=== PATIENT | male | born 1940 | race Caucasian/White ===

== ENCOUNTER 2017-12-05 08:57 | Inpatient (IN) | payer OTHER ==
[2017-12-05] VITALS (8 sets, daily range): BP systolic 97–141; BP diastolic 58–85; PULSE 67–139; TEMP 36.3–36.7; O2SAT 94–96; Ht 190.5 cm; Wt 98.3 kg
[~2017-12-05] VITALS: Ht 190.5 cm; Wt 98.3 kg
[~2017-12-05 08:57] MED LIST: BENADRYL; NXM/40
--- NOTE | 2017-12-05 09:35 | DIAGNOSTIC IMAGING REPORT ---
CHEST ONE VIEW PORTABLE CLINICAL HISTORY: EVALUATE RESPIRATORY DISTRESS.DYSPNEA dyspnea COMPARISON STUDY: No previous studies for comparison. FINDINGS: The bones soft tissues and hemidiaphragms are normal. The cardiomediastinal silhouette is normal. The lungs are clear. The pulmonary vasculature is normal. Minimal platelike atelectasis left base. IMPRESSION: Minimal platelike atelectasis left base. Otherwise negative study. The above report was generated using voice recognition software. It may contain grammatical, syntax or spelling errors. Electronically signed by: Lawrence Rubio M.D. 12/05/2017 9:33 AM Dictated Date/Time: 12/05/2017 9:33 AM
[2017-12-05] MEDS ORDERED: GABA-112 PO (09:41)
[2017-12-05] MEDS ORDERED: NXM/40 PO (09:41)
[2017-12-05] MEDS ORDERED: LISI-789 PO (09:41)
[2017-12-05] MEDS ORDERED: FERR1TAB23 PO (09:41)
[2017-12-05] MEDS ORDERED: SIMV5TAB2 PO (09:41)
[2017-12-05] MEDS ORDERED: MELO-84 PO (09:41)
[2017-12-05] MEDS ORDERED: PRD/1 PO (09:41)
[2017-12-05] MEDS ORDERED: TAMS0.4C38 PO (09:41)
[2017-12-05 10:03] LABS: BASO % 0.2 %; BASO ABS # 0.01 K/uL (0-0.2); EOS % 4.7 %; HEMATOCRIT 40.7 % (42-52); HEMOGLOBIN 14.5 g/dL (14.0-18.0); IG# 0.03 K/uL (0.00-0.02); LYMPH % 25.1 %; LYMPH ABS # 1.07 K/uL (1.2-3.4); MEAN CELL VOLUME 90.2 fL (80-100); MEAN CORPUSCULAR HEMOGLOBIN 32.2 pg (25-34); MEAN CORPUSCULAR HGB CONC 35.6 g/dl (32-36); MEAN PLATELET VOLUME 10.1 fL (7.4-10.4); MONO % 10.1 %; MONO ABS # 0.43 K/uL (0.11-0.59); NEUT % 59.2 %; NEUT ABS # 2.53 K/uL (1.4-6.5); PLATELET COUNT 232 K/uL (130-400); RED CELL DISTRIBUTION WIDTH CV 13.1 % (11.5-14.5); RED CELL DISTRIBUTION WIDTH SD 42.7 fL (36.4-46.3); WHITE BLOOD COUNT 4.27 K/uL (4.8-10.8)
[2017-12-05 10:11] LABS: PTT PATIENT 24.8 SECONDS (21.0-31.0)
[2017-12-05 10:23] LABS: ALBUMIN 3.6 gm/dl (3.4-5.0); CALCIUM 9.6 mg/dl (8.5-10.1); CREATININE 0.94 mg/dl (0.60-1.40); PHOSPHORUS 3.4 mg/dl (2.5-4.9)
[2017-12-05 10:30] LABS: TOTAL PROTEIN 6.9 gm/dl (6.4-8.2)
[2017-12-05] MEDS ORDERED: ASPIRIN 324 MG CHEW PO STA (10:32)
[2017-12-05] MEDS ORDERED: SODIUM CHLORIDE 0.9% 1000ML 1,000 ML IV STA (10:33)
[2017-12-05] MEDS ORDERED: METOPROLOL TARTRATE 1 MG/ML VIAL IV STA (10:58)
--- NOTE | 2017-12-05 11:42 | DIAGNOSTIC IMAGING REPORT ---
(CHEST FOR PE) ANGIO WITH CT DOSE: 562.38 mGy.cm HISTORY: Chest pain dyspnea TECHNIQUE: Multiaxial CT images of the chest were performed following the intravenous administration of contrast to evaluate the pulmonary arteries. Maximal intensity projection images were also obtained. A dose lowering technique was utilized adhering to the principles of ALARA. COMPARISON STUDY: None. FINDINGS: There is a normal caliber thoracic aorta with no evidence for dissection. There is no evidence for pulmonary embolus. No pleural effusions. No pneumothorax. The liver and spleen are unremarkable. No mediastinal or hilar lymphadenopathy. The central airways are patent. The lungs demonstrate mild emphysematous change with mild bibasilar interstitial prominence. Scattered bibasilar plaque atelectasis is also present. Generalized degenerative changes of the thoracic spine. IMPRESSION: No evidence for pulmonary embolus. Mild emphysematous change. Mild bibasilar interstitial/atelectatic change. The above report was generated using voice recognition software. It may contain grammatical, syntax or spelling errors. Electronically signed by: Lawrence Rubio M.D. 12/05/2017 11:40 AM Dictated Date/Time: 12/05/2017 11:32 AM
[2017-12-05] MEDS ORDERED: ACETAMINOPHEN 325 MG TAB PO PRN (12:00)
[2017-12-05] MEDS ORDERED: ONDANSETRON INJ 2 MG/ML 2 ML VIAL IV PRN (12:00)
[2017-12-05] MEDS ORDERED: LISI-729 PO (12:04)
[2017-12-05] MEDS ORDERED: ACT/35 PO (12:04)
[2017-12-05] MEDS ORDERED: CALC500C70 PO (12:04)
[2017-12-05] MEDS ORDERED: PRED-301 PO (12:04)
[2017-12-05] MEDS ORDERED: SIMV20TA5 PO (12:04)
--- NOTE | 2017-12-05 12:04 | EMERGENCY ROOM VISIT NOTE ---
History Report prepared by Abdiaziz: Camille Fernandez Under the Supervision of: Dr. Quoc Jaime M.D. First contact with patient: 09:06 Chief Complaint: SHORTNESS OF BREATH Stated Complaint: SOB, ACCELERATED HEART RATE Nursing Triage Summary: pt went to pcp for sob after taking med for nerve pain gabapentin. today at pcp told to come to ed for irregular hr History of Present Illness The patient is a 77 year old white male with a past medical history of HTN, HLD who presents to the ED with a cc of persistent SOB beginning several weeks ago. He was sent to the ED from his PCP's office for elevated heart rate. He notices the SOB with exertion. He did not notice an elevated heart rate prior to today. He notes his symptoms started after he started taking gabapentin for shingles. Positive chest tightness, indigestion, dry cough, intermittent calf cramping. Negative fever, chills, leg swelling, change in bowel movement, urinary symptoms. He has been eating and drinking normally. He does not smoke. No history of blood clots or thyroid problems. No recent changes in mediations besides gabapentin. No recent prolonged travel. He does drink coffee, but denies any other stimulant use. His father had a AR at age 66. Source of History: patient Onset: several weeks ago Position: other (global) Quality: other (SOB) Timing: intermittent Modifying Factors (Worsening): exertion Associated Symptoms: + cough, + chest pain, No fevers, No chills, No urinary symptoms Review of Systems See HPI for pertinent positives and negatives. A total of ten systems were reviewed and were otherwise negative. Past Medical & Surgical Medical Problems: (1) BPH (benign prostatic hyperplasia) (2) Dyslipidemia (3) GERD (gastroesophageal reflux disease) (4) HLA-B27 spondyloarthropathy (5) HTN (hypertension) (6) Lichen planus (7) Osteoarthritis (8) Osteoporosis Surgical Problems: (1) H/O hernia repair (2) History of cataract surgery Family History Heart disease Social History Smoking Status: Never Smoker Marital Status: single Occupation Status: retired Current/Historical Medications Scheduled Calcium/Vitamin D (Os-Don 500 Plus D), 2 TAB PO DAILY Esomeprazole Magnesium (Nexium), 40 MG PO DAILY Gabapentin (Neurontin), 100 MG PO UD Lisinopril (Prinivil), 5 MG PO DAILY Meloxicam (Mobic), 15 MG PO DAILY Prednisone (Prednisone), 5 MG PO DAILY Risedronate Sod (Actonel), 1 TAB PO WK Simvastatin (Zocor), 1 TAB PO HS Tamsulosin Hcl (Flomax), 0.4 MG PO QPM Allergies Coded Allergies: No Known Allergies (Unverified , 12/05/17) Physical Exam Vital Signs Date Time Temp Pulse Resp B/P (MAP) Pulse Ox O2 Delivery O2 Flow Rate FiO2 12/05/17 11:47 95 Room Air 12/05/17 11:47 129 22 12/05/17 11:44 122/72 12/05/17 11:17 119 19 108/94 97 12/05/17 11:13 136 115/82 95 Room Air 12/05/17 11:12 134 18 121/93 95 Room Air 12/05/17 11:11 136 19 119/95 94 Room Air 12/05/17 11:10 139 18 124/100 95 Room Air 12/05/17 11:06 97 19 132/94 95 Room Air 12/05/17 11:05 143 121/91 12/05/17 11:01 121/91 12/05/17 10:48 113/85 12/05/17 10:36 143 18 96 12/05/17 10:31 204/184 12/05/17 10:27 139 19 96 Room Air 12/05/17 10:01 160/102 12/05/17 09:57 144 18 12/05/17 09:32 120/76 12/05/17 09:27 133 14 96 12/05/17 09:23 144 12/05/17 09:10 97 Room Air 12/05/17 09:10 155/90 12/05/17 09:00 36.4 142 18 118/83 97 Room Air Physical Exam GENERAL: Awake, alert, well-appearing, NAD HENT: Normocephalic, atraumatic. EYES: Normal conjunctiva. Sclera non-icteric. NECK: Supple. No nuchal rigidity. FROM. RESPIRATORY: CTAB, no rhonchi, wheezing, crackles CARDIAC: Tachycardic, regular rhythm, no MRG ABDOMEN: Soft, NTND, BS+ MSK: No chest wall TTP, no calf pain or swelling NEURO: GCS 15, CN 2-12 intact, moves all 4s on command SKIN: No rash or jaundice noted. Medical Decision & Procedures ER Provider Diagnostic Interpretation: Xray results as stated below per my and radiologist interpretation. Radiology results as stated below per my review and radiologist interpretation: CHEST ONE VIEW PORTABLE CLINICAL HISTORY: EVALUATE RESPIRATORY DISTRESS.DYSPNEA dyspnea COMPARISON STUDY: No previous studies for comparison. FINDINGS: The bones soft tissues and hemidiaphragms are normal. The cardiomediastinal silhouette is normal. The lungs are clear. The pulmonary vasculature is normal. Minimal platelike atelectasis left base. IMPRESSION: Minimal platelike atelectasis left base. Otherwise negative study. The above report was generated using voice recognition software. It may contain grammatical, syntax or spelling errors. Electronically signed by: Lawrence Rubio M.D. 12/05/2017 9:33 AM Dictated Date/Time: 12/05/2017 9:33 AM (CHEST FOR PE) ANGIO WITH CT DOSE: 562.38 mGy.cm HISTORY: Chest pain dyspnea TECHNIQUE: Multiaxial CT images of the chest were performed following the intravenous administration of contrast to evaluate the pulmonary arteries. Maximal intensity projection images were also obtained. A dose lowering technique was utilized adhering to the principles of ALARA. COMPARISON STUDY: None. FINDINGS: There is a normal caliber thoracic aorta with no evidence for dissection. There is no evidence for pulmonary embolus. No pleural effusions. No pneumothorax. The liver and spleen are unremarkable. No mediastinal or hilar lymphadenopathy. The central airways are patent. The lungs demonstrate mild emphysematous change with mild bibasilar interstitial prominence. Scattered bibasilar plaque atelectasis is also present. Generalized degenerative changes of the thoracic spine. IMPRESSION: No evidence for pulmonary embolus. Mild emphysematous change. Mild bibasilar interstitial/atelectatic change. The above report was generated using voice recognition software. It may contain grammatical, syntax or spelling errors. Electronically signed by: Lawrence Rubio M.D. 12/05/2017 11:40 AM Dictated Date/Time: 12/05/2017 11:32 AM Laboratory Results Test 12/05/17 09:50 12/05/17 10:30 Immature Granulocyte % (Auto) 0.7 % White Blood Count 4.27 K/uL (4.8-10.8) Red Blood Count 4.51 M/uL (4.7-6.1) Hemoglobin 14.5 g/dL (14.0-18.0) Hematocrit 40.7 % (42-52) Mean Corpuscular Volume 90.2 fL (80-100) Mean Corpuscular Hemoglobin 32.2 pg (25-34) Mean Corpuscular Hemoglobin Concent 35.6 g/dl (32-36) Platelet Count 232 K/uL (130-400) Mean Platelet Volume 10.1 fL (7.4-10.4) Neutrophils (%) (Auto) 59.2 % Lymphocytes (%) (Auto) 25.1 % Monocytes (%) (Auto) 10.1 % Eosinophils (%) (Auto) 4.7 % Basophils (%) (Auto) 0.2 % Neutrophils # (Auto) 2.53 K/uL (1.4-6.5) Lymphocytes # (Auto) 1.07 K/uL (1.2-3.4) Monocytes # (Auto) 0.43 K/uL (0.11-0.59) Eosinophils # (Auto) 0.20 K/uL (0-0.5) Basophils # (Auto) 0.01 K/uL (0-0.2) Immature Granulocyte # (Auto) 0.03 K/uL (0.00-0.02) Prothrombin Time 10.3 SECONDS (9.0-12.0) Prothromb Time International Ratio 1.0 (0.9-1.1) Activated Partial Thromboplast Time 24.8 SECONDS (21.0-31.0) Partial Thromboplastin Ratio 1.0 Estimated Average Glucose 103 mg/dl Hemoglobin A1c 5.2 % (4.5-5.6) Phosphorus Level 3.4 mg/dl (2.5-4.9) Magnesium Level 2.1 mg/dl (1.8-2.4) Total Bilirubin 0.5 mg/dl (0.2-1) Aspartate Amino Transf (AST/SGOT) 16 U/L (15-37) Alanine Aminotransferase (ALT/SGPT) 44 U/L (12-78) Alkaline Phosphatase 51 U/L (45-117) Pro-B-Type Natriuretic Peptide 1413 pg/ml (0-1800) Total Protein 6.9 gm/dl (6.4-8.2) Albumin 3.6 gm/dl (3.4-5.0) Globulin 3.3 gm/dl (2.5-4.0) Albumin/Globulin Ratio 1.1 (0.9-2) Thyroid Stimulating Hormone (TSH) 1.230 uIu/ml (0.300-4.500) Urine Color YELLOW Urine Appearance CLEAR (CLEAR) Urine pH 5.0 (4.5-7.5) Urine Specific [place] 1.022 (1.000-1.030) Urine Protein NEG (NEG) Urine Glucose (UA) NEG (NEG) Urine Ketones NEG (NEG) Urine Occult Blood NEG (NEG) Urine Nitrite NEG (NEG) Urine Bilirubin NEG (NEG) Urine Urobilinogen NEG (NEG) Urine Leukocyte Esterase NEG (NEG) Laboratory results reviewed by me Medications Administered Medications (Trade) Dose Ordered Sig/Beverley Route Start Time Stop Time Status Last Admin Dose Admin Aspirin (Aspirin Chew) 324 mg NOW STAT PO 12/05/17 10:32 12/05/17 10:33 DC 12/05/17 10:42 324 MG Sodium Chloride 1,000 ml @ 500 mls/hr Q2H STAT IV 12/05/17 10:33 12/05/17 12:32 DC 12/05/17 10:44 500 MLS/HR Metoprolol Tartrate (Lopressor Iv) 5 mg NOW STAT IV 12/05/17 10:58 12/05/17 10:59 DC 12/05/17 11:05 5 MG ECG Indication: tachycardia Rate (beats per minute): 138 Rhythm: sinus tachycardia Findings: T-wave inversion (Inferior), left axis deviation, other (normal intervals, biphasic T wave lateral) Comparison ECG Date: January 2008 Change: LAD and rate changed. Patient's electrocardiogram interpreted by me. ED Course 0916: The patient was evaluated in room A9B. A complete history and physical exam was performed. 1056: I discussed the patient's case with Dr. Tamayo [facility] cardiology. We are in agreement with the plan. 1104: I discussed the patient's case with Radha Castro PA-C [facility] hospitalist. The patient will be evaluated for further treatment and disposition. 1117: Upon reexamination, the patient was stable. I discussed the test results and treatment plan with him. He verbalized agreement of the plan. The patient will be evaluated for further management. Medical Decision The patient is a 77 year old white male with a past medical history of HTN, HLD , arthritis who presents to the ED with a cc of persistent SOB beginning several weeks ago. Differential diagnosis: Etiologies such as infections, reactive airway disease, pneumonia, pneumothorax , COPD, CHF, cardiac ischemia, pulmonary embolism, musculoskeletal, gastrointestinal, as well as others were entertained. Seen and evaluated at the bedside. Patient referred for elevated HR. Patient states has had some worsening FERNÁNDEZ w/ activity. Usually can walk hills/stairs w/ o issue. Seen in clinic today. Noted to have elevated HR. Currently at rest is asymptomatic. Non-smoker. No risk factors for PE/DVT. No LE swelling. Not in extremis. EKG w/ sinus tach and biphasic TW in lateral and inferior leads. Appears fairly regular, borderline wide QRS, don't see buried P waves, however, possibly an arrythmia. Trop +. Again at rest asymptomatic. Given full dose ASA. Ordered IVF, TSH, and CT PE protocol. Discussed w/ cards. Given 5mg IV lopressor. Other blood work unremarkable. Admitted to hospitalist. CT PE neg acute. Pending further eval. Medication Reconcilliation Current Medication List: was personally reviewed by me Blood Pressure Screening Patient's blood pressure: Elevated blood pressure Referred to hospitalist. Consults Time Called: 1032 Consulting Physician: Dr. Tamayo [facility] cardiology Returned Call: 1056 I discussed the patient's case with him. We are in agreement with the plan. Additional Consults: Time Called: 1100 Consulted Physician: [facility] Returned Call: 1104 Additional Comments: I discussed the patient's case with her. The patient will be evaluated for further treatment and disposition. Impression Primary Impression: Elevated troponin Additional Impressions: Tachycardia SOB (shortness of breath) Critical Care I have personally spent greater than 35 minutes of critical care time in the direct management of this patient. This includes bedside care, interpretation of diagnostic studies, and testing, discussion with consultants, patient, and family members, and other required patient management activities. This 35 minutes is in excess of all separately billable procedures. Scribe Attestation The scribe's documentation has been prepared under my direction and personally reviewed by me in its entirety. I confirm that the note above accurately reflects all work, treatment, procedures, and medical decision making performed by me. Departure Information Dispostion Being Evaluated By Hospitalist Referrals No Doctor, Assigned (PCP) Patient Instructions My [facility] Problem Qualifiers
--- NOTE | 2017-12-05 13:09 | History and Physical ---
History & Physical Date & Time of Service: Dec 05, 2017 ~ 11:30 Chief Complaint: Shortness of Breath, Chest Pain Primary Care Physician: Nikita Brady M.D. History of Present Illness 77 year old male who was referred to the ED by his PCP for evaluation of tachycardia, shortness of breath, and chest pain. Patient reports he was diagnosed with shingles and post herpetic neuralgia about 2 months ago. He was started on gabapentin for the PHN. He feels like his symptoms started shortly after starting the medication. He reports shortness of breath and a feeling chest fullness with exertion. He reports he typically walks every day however that has been limited due to his symptoms. He also reports these exertional symptoms with climbing stairs. He has noticed increased indigestion. He denies palpitations or feelings of his heart racing. No lightheadedness, dizziness, diaphoresis, or syncopal events. He denies abdominal pain, nausea, vomiting, or diarrhea. No fevers or chills. He denies urinary symptoms. Patient went to his PCP today for the aforementioned complaints. He was found to be tachycardic in the 120s. He was sent to the ED for further evaluation. In the ED, patient's EKG shows sinus tachycardia in the 130s. He was given metoprolol 5mg IV without much improvement in heart rate. His troponin is mildly elevated at 0.122. Remainder of his labs are unremarkable. CTA is negative for PE. Past Medical/Surgical History Medical Problems: (1) BPH (benign prostatic hyperplasia) Status: Chronic (2) Dyslipidemia Status: Chronic (3) GERD (gastroesophageal reflux disease) Status: Chronic (4) HLA-B27 spondyloarthropathy Status: Chronic (5) HTN (hypertension) Status: Chronic (6) Lichen planus Status: Chronic (7) Osteoarthritis Status: Chronic (8) Osteoporosis Status: Chronic Surgical Problems: (1) H/O hernia repair Status: Chronic (2) History of cataract surgery Status: Chronic Family History FH: cirrhosis MOTHER FH: lung cancer FATHER Social History Smoking Status: Former Smoker Alcohol Use: 2 glasses wine/night Immunizations History of Influenza Vaccine: Yes Influenza Vaccine Date: Aug 20, 2017 History of Tetanus Vaccine?: Yes Tetanus Immunization Date: Aug 30, 2017 History of Pneumococcal: Yes Pneumococcal Date: Sep 27, 2015 Multi-Drug Resistant Organisms History of MDRO: No Allergies Coded Allergies: No Known Allergies (Unverified , 12/05/17) Home Medications Scheduled Calcium/Vitamin D (Os-Don 500 Plus D), 2 TAB PO DAILY Esomeprazole Magnesium (Nexium), 40 MG PO DAILY Gabapentin (Neurontin), 100 MG PO UD Lisinopril (Prinivil), 5 MG PO DAILY Meloxicam (Mobic), 15 MG PO DAILY Prednisone (Prednisone), 5 MG PO DAILY Risedronate Sod (Actonel), 1 TAB PO WK Simvastatin (Zocor), 1 TAB PO HS Tamsulosin Hcl (Flomax), 0.4 MG PO QPM Review of Systems ROS per HPI, all other systems reviewed and negative Physical Exam Vital Signs Date Time Temp Pulse Resp B/P (MAP) Pulse Ox O2 Delivery O2 Flow Rate FiO2 12/05/17 11:47 95 Room Air 12/05/17 11:47 129 22 12/05/17 11:44 122/72 12/05/17 11:17 119 19 108/94 97 12/05/17 11:13 136 115/82 95 Room Air 12/05/17 11:12 134 18 121/93 95 Room Air 12/05/17 11:11 136 19 119/95 94 Room Air 12/05/17 11:10 139 18 124/100 95 Room Air 12/05/17 11:06 97 19 132/94 95 Room Air 12/05/17 11:05 143 121/91 12/05/17 11:01 121/91 12/05/17 10:48 113/85 12/05/17 10:36 143 18 96 12/05/17 10:31 204/184 12/05/17 10:27 139 19 96 Room Air 12/05/17 10:01 160/102 12/05/17 09:57 144 18 12/05/17 09:32 120/76 12/05/17 09:27 133 14 96 12/05/17 09:23 144 12/05/17 09:10 97 Room Air 12/05/17 09:10 155/90 12/05/17 09:00 36.4 142 18 118/83 97 Room Air General Appearance: WD/WN, no apparent distress Head: normocephalic, atraumatic Eyes: normal inspection, EOMI, sclerae normal ENT: hearing grossly normal, + pertinent finding (mucous membranes moist) Neck: supple, no JVD, no carotid bruits Respiratory/Chest: lungs clear, normal breath sounds, no respiratory distress Cardiovascular: no edema, normal peripheral pulses, + tachycardia (regular rhythm) Abdomen/GI: normal bowel sounds, non tender, soft, no organomegaly Extremities/Musculoskelatal: normal inspection, no calf tenderness, normal capillary refill Neurologic/Psych: no motor/sensory deficits, alert, normal mood/affect, oriented x 3 Skin: normal color, warm/dry Diagnostics Laboratory Results Results Past 24 Hours Test 12/05/17 09:50 12/05/17 10:30 Range/Units White Blood Count 4.27 4.8-10.8 K/uL Red Blood Count 4.51 4.7-6.1 M/uL Hemoglobin 14.5 14.0-18.0 g/dL Hematocrit 40.7 42-52 % Mean Corpuscular Volume 90.2 80-100 fL Mean Corpuscular Hemoglobin 32.2 25-34 pg Mean Corpuscular Hemoglobin Concent 35.6 32-36 g/dl Platelet Count 232 130-400 K/uL Mean Platelet Volume 10.1 7.4-10.4 fL Neutrophils (%) (Auto) 59.2 % Lymphocytes (%) (Auto) 25.1 % Monocytes (%) (Auto) 10.1 % Eosinophils (%) (Auto) 4.7 % Basophils (%) (Auto) 0.2 % Neutrophils # (Auto) 2.53 1.4-6.5 K/uL Lymphocytes # (Auto) 1.07 1.2-3.4 K/uL Monocytes # (Auto) 0.43 0.11-0.59 K/uL Eosinophils # (Auto) 0.20 0-0.5 K/uL Basophils # (Auto) 0.01 0-0.2 K/uL RDW Standard Deviation 42.7 36.4-46.3 fL RDW Coefficient of Variation 13.1 11.5-14.5 % Immature Granulocyte % (Auto) 0.7 % Immature Granulocyte # (Auto) 0.03 0.00-0.02 K/uL Prothrombin Time 10.3 9.0-12.0 SECONDS Prothromb Time International Ratio 1.0 0.9-1.1 Activated Partial Thromboplast Time 24.8 21.0-31.0 SECONDS Partial Thromboplastin Ratio 1.0 Sodium Level 138 136-145 mmol/L Potassium Level 4.0 3.5-5.1 mmol/L Chloride Level 107 98-107 mmol/L Carbon Dioxide Level 24 21-32 mmol/L Anion Gap 8.0 3-11 mmol/L Blood Urea Nitrogen 25 7-18 mg/dl Creatinine 0.94 0.60-1.40 mg/dl Est Creatinine Clear Calc Drug Dose 86.6 ml/min Estimated GFR () 90.9 Estimated GFR (Non- 78.4 BUN/Creatinine Ratio 26.2 10-20 Random Glucose 111 70-99 mg/dl Calcium Level 9.6 8.5-10.1 mg/dl Phosphorus Level 3.4 2.5-4.9 mg/dl Magnesium Level 2.1 1.8-2.4 mg/dl Total Bilirubin 0.5 0.2-1 mg/dl Aspartate Amino Transf (AST/SGOT) 16 15-37 U/L Alanine Aminotransferase (ALT/SGPT) 44 12-78 U/L Alkaline Phosphatase 51 45-117 U/L Troponin I 0.122 0-0.045 ng/ml Pro-B-Type Natriuretic Peptide 1413 0-1800 pg/ml Total Protein 6.9 6.4-8.2 gm/dl Albumin 3.6 3.4-5.0 gm/dl Globulin 3.3 2.5-4.0 gm/dl Albumin/Globulin Ratio 1.1 0.9-2 Thyroid Stimulating Hormone (TSH) 1.230 0.300-4.500 uIu/ml Urine Color YELLOW Urine Appearance CLEAR CLEAR Urine pH 5.0 4.5-7.5 Urine Specific [place] 1.022 1.000-1.030 Urine Protein NEG NEG Urine Glucose (UA) NEG NEG Urine Ketones NEG NEG Urine Occult Blood NEG NEG Urine Nitrite NEG NEG Urine Bilirubin NEG NEG Urine Urobilinogen NEG NEG Urine Leukocyte Esterase NEG NEG Diagnostic Radiology CXR IMPRESSION: Minimal platelike atelectasis left base. Otherwise negative study. CTA CHEST IMPRESSION: No evidence for pulmonary embolus. Mild emphysematous change. Mild bibasilar interstitial/atelectatic change. Impression Assessment and Plan TACHYCARDIA, ELEVATED TROPONIN - admit to tele - patient presenting with exertional shortness of breath and chest discomfort x 2 months; was seen by PCP but sent to the ED for evaluation of tachycardia - EKG shows tachycardia in the 130s; received metoprolol 5mg IV without much improvement in heart rate - ? underlying atrial fibrillation or flutter once rate is slowed down - patient asymptomatic at rest, BP stable - initial troponin 0.122, will continue to cycle - s/p full dose ASA in the ED, will continue with 81mg daily; continue statin - check resting echo - case discussed with Dr. Tamayo HX PMR, LICHEN PLANUS, HLA-B27 SPONDYLOARTHROPATHY, OSTEOARTHRITIS - on chronic Prednisone 5mg daily - will continue - no role for stress dose steroids at this time POST HERPETIC NEURALGIA - was started on gabapentin ~ 2 months ago - per PCP, will start tapering today DVT PROPHYLAXIS - SQ Lovenox DISPO - In my clinical judgment this beneficiary meets acute admission criteria, established by [facility], that includes being hospitalized through two midnights. ATTENDING ADDENDUM: pt seen and examined care co ordinated with Felicia VELEZ 77 yo M sent form PCP office for tachyarrhythmia-found to be in rapid aflutter / Afib pt reports of FERNÁNDEZ , poor exercise tolerance for past 1 week not aware of palpitation as pt has chronic post herpetic neuralgia on ant chest wall form shingles _pt admitted to Tele mild elevation of troponin due to rapid afib /flutter CT chest negative for PE Cardiology eval requested , appreciate input , started on beta maría Lopressor 25 mg QID anticoagulation with Eliquis ordered for ECHO Full code please refer to further documentation by Felicia Parada MD Advanced Directives Existing Living Will: No Existing Power of Cardiac Surgeon: No VTE Prophylaxis VTE Risk Assessment Done? Y/N: Yes Risk Level: Moderate
[2017-12-05 13:12] LABS: HEMOGLOBIN A1C 5.2 % (4.5-5.6)
[2017-12-05] MEDS ORDERED: ENOXAPARIN 40 MG/0.4 ML SYR SC SCH (14:00)
[2017-12-05] MEDS ORDERED: METOPROLOL TARTRATE 25 MG TAB PO ONE (15:30)
--- NOTE | 2017-12-05 16:12 | ECHOCARDIOGRAM REPORT ---
*NOTICE TO RECEIVING CONSTITUTION PARTY AGENCY This information is strictly Confidential and protected under [place] law. [place] law prohibits you from making any further disclosure of this information unless further disclosure is expressly permitted by the written consent of the person to whom it pertains or is authorized by law. A general authorization for the release of medical or other information is not sufficient for this purpose. Hospital accepts no responsibility if the information is made available to any other person, INCLUDING THE PATIENT. Interpretation Summary * Name: CRISTINA RODARTE Study Date: 12/05/2017 02:04 PM BP: 141/85 mmHg * Patient Location: [facility]\S\N278\S\1 HR: 136 * : 1940 (M/d/yyyy) Gender: Male Height: 75 in * Age: 77 yrs Ethnicity: [place] Weight: 225 lb * Ordering Physician: John Tamayo * Referring Physician: Nikita Brady * Performed By: Gabi Groves RDCS * * Reason For Study: TACHYCARDIA, SOB * BSA: 2.3 m2 * -- Conclusions -- * Tachycardia at 130 bpm was present at the time of the echocardiogram. * There is moderate global hypokinesis of the left ventricle. * Left ventricular systolic function is moderately reduced. * The LV Ejection Fraction = 35-40%. * The left atrium is mildly dilated. * The right ventricle is normal size. * The right ventricular systolic function is reduced as assessed by tricuspid annular plane systolic excursion (TAPSE) (TAPSE <1.6 cm). Procedure Details * A contrast injection of Definity was performed to improve assessment of LV function. * Contrast was injected into an intravenous site in the left arm. * One vial of Definity ultrasound contrast was diluted in normal saline to a total volume of 10 ml. A total of '2' ml of solution was administered during imaging. * Lot # [id number] of Definity utilized for procedure. * Expiration date DEC 16. * The attending nurse who injected the contrast agent was AKBAR FERNÁNDEZ RN. * A complete two-dimensional transthoracic echocardiogram was performed (2D, M-mode, Doppler and color flow Doppler). Left Ventricle * The left ventricle is normal in size. * There is normal left ventricular wall thickness. * Left ventricular systolic function is moderately reduced. * Ejection Fraction = 35-40%. * There is moderate global hypokinesis of the left ventricle. Right Ventricle * The right ventricle is normal size. * The right ventricular systolic function is reduced as assessed by tricuspid annular plane systolic excursion (TAPSE) (TAPSE <1.6 cm). Atria * The left atrium is mildly dilated. * Right atrial size is normal. * There is no evidence of atrial septal defect, but resolution does not allow assessment for a patent foramen ovale. Mitral Valve * The mitral valve is normal. * There is no mitral valve stenosis. * Significant mitral regurgitation is absent. Tricuspid Valve * The tricuspid valve is normal. * There is no tricuspid stenosis. * Significant tricuspid regurgitation is absent. Aortic Valve * The aortic valve is trileaflet. * Aortic stenosis is absent. * There is no significant aortic regurgitation. Pulmonic Valve * The pulmonary valve is not well seen, but the Doppler examination is normal without significant regurgitation or stenosis. Great Vessels * The aortic root and proximal ascending aorta are normal sized. Pericardium/Pleural * A trace circumferential pericardial effusion is present. * There are echocardiographic indications for cardiac tamponade. Great Vessels * Normal inferior vena cava size and collapsability with sniff indicates a normal right atrial pressure of 3 mmHg Left Ventricular Diastolic Function * The LV diastolic function is abnormal based on the prescence of LV systolic dysfunction however, not graded due to the tachycardia. MMode 2D Measurements and Calculations IVSd 1.4 cm IVSs 1.6 cm LVIDd 3.4 cm LVIDs 2.6 cm LVPWd 1.4 cm LVPWs 1.9 cm IVS/LVPW 0.97 FS 23.5 % EDV(Teich) 46.0 ml ESV(Teich) 23.8 ml EF(Teich) 48.2 % EDV(cubed) 37.8 ml ESV(cubed) 16.9 ml EF(cubed) 55.3 % % IVS thick 18.2 % % LVPW thick 32.6 % LV mass(C)d 159.8 grams LV mass(C)dI 69.3 grams/m\S\2 LV mass(C)s 169.3 grams LV mass(C)sI 73.4 grams/m\S\2 SV(Teich) 22.2 ml SI(Teich) 9.6 ml/m\S\2 SV(cubed) 20.9 ml SI(cubed) 9.1 ml/m\S\2 Ao root diam 3.8 cm Ao root area 11.3 cm\S\2 LA dimension 4.2 cm LA/Ao 1.1 LVOT diam 2.0 cm LVOT area 3.0 cm\S\2 LVAd ap4 26.0 cm\S\2 LVLd ap4 7.9 cm EDV(MOD-sp4) 71.5 ml EDV(sp4-el) 72.6 ml LVAs ap4 18.8 cm\S\2 LVLs ap4 7.6 cm ESV(MOD-sp4) 40.0 ml ESV(sp4-el) 39.4 ml EF(MOD-sp4) 44.0 % EF(sp4-el) 45.7 % LVAd ap2 24.2 cm\S\2 LVLd ap2 7.8 cm EDV(MOD-sp2) 61.8 ml EDV(sp2-el) 63.5 ml LVAs ap2 17.0 cm\S\2 LVLs ap2 7.5 cm ESV(MOD-sp2) 31.8 ml ESV(sp2-el) 32.8 ml EF(MOD-sp2) 48.5 % EF(sp2-el) 48.3 % LVLd %diff -1.22 % EDV(MOD-bp) 66.7 ml LVLs %diff -2.05 % ESV(MOD-bp) 35.5 ml EF(MOD-bp) 46.8 % SV(MOD-sp4) 31.5 ml SI(MOD-sp4) 13.6 ml/m\S\2 SV(MOD-sp2) 29.9 ml SI(MOD-sp2) 13.0 ml/m\S\2 SV(MOD-bp) 31.2 ml SI(MOD-bp) 13.5 ml/m\S\2 SV(sp4-el) 33.2 ml SI(sp4-el) 14.4 ml/m\S\2 SV(sp2-el) 30.7 ml SI(sp2-el) 13.3 ml/m\S\2 Doppler Measurements and Calculations Ao V2 max 118.5 cm/sec Ao max PG 5.6 mmHg Ao max PG (full) 3.2 mmHg ARAM(V,A) 2.0 cm\S\2 ARAM(V,D) 2.0 cm\S\2 LV V1 max PG 2.5 mmHg LV V1 max 78.5 cm/sec TR max zuleyma 249.1 cm/sec
--- NOTE | 2017-12-05 16:19 | Cardiology Consultation ---
Cardiology Consultation Date of Consultation: Dec 05, 2017 History of Present Illness Anson Marie is a 77 year old male seen in cardiology consultation per the request of ROSIE Drummond for the evaluation of tachycardia and mild troponin elevation. The patient describes having had shingles back in June and after that he was placed on gabapentin for postherpetic neuralgia. He notes that after that he has had progressive easy fatigability and exertional shortness of breath. He was seen at the [facility] clinic this morning and was found to be tachycardic with a heart rate of 130 bpm. He complained of at least 3 months of exertional shortness of breath and he was referred to the emergency department. During my interview with the patient he notes recent symptoms of feeling chest tightness and dizziness with activity such as walking. Last time he tried to walk outside was on 11/25/16 and he noted shortness of breath when tried to walk uphill. Yesterday he tried to climb 2 flights of stairs and noted debilitating shortness of breath. EKG performed on arrival to the emergency room this morning on 12/05/17 at 908 revealed narrow complex tachycardia with right bundle branch block pattern, left anterior fascicular block pattern 138 bpm. EKG demonstrates a regular R to R interval and is difficult to distinguish between sinus tachycardia or possibly atrial flutter on this EKG, however on further inspection of his telemetry and after repeating an EKG and review of his echocardiogram I believe this EKG is freight representative of atrial flutter with rapid ventricular rate Compared to a prior outpatient tracing dated back to 01/22/13 and incomplete right bundle branch block was noted that time with normal sinus rhythm. Patient has a history of HLA-B27 spondyloarthropathy, polymyalgia rheumatica, and lichen planus. He is treated with daily prednisone and received phototherapy. He is also on meloxicam as an outpatient. He has been on an JUN inhibitor for hypertension and is also on simvastatin for dyslipidemia. Further evaluation in the emergency room included a CT angiogram to exclude pulmonary embolism. The thoracic aorta was normal in caliber without evidence of dissection. History Past Medical History: 1. Hypertension 2. Dyslipidemia 3. HLA-B27 spondyloarthropathy 4. Lichen planus 5. Arthritis 6. Osteoporosis 7. Polymyalgia rheumatica 8. Benign prostatic hypertrophy Past Surgical History: 1. History of hernia repair 2. History of cataract surgery Social History: Patient describes drinking 2-3 alcoholic beverages per day. He quit smoking a long time ago. 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 Family History: Patient's brother of HIV/AIDS Patient's father had a history of cancer and reportedly due to congestive heart failure at the age of 66. His mother due to cirrhosis, details unknown Review Of Systems See above for pertinent positives & negatives. A total of 10 systems reviewed and were otherwise negative. Allergies Coded Allergies: No Known Allergies (Unverified , 12/05/17) Medications Reported Home Medications Medications Dose Route/Sig Max Daily Dose Days Date Category Dose Instructions Os-Don 500 Plus D (Calcium/Vitamin D) Tab 2 Tab PO DAILY 12/05/17 Reported Zocor (Simvastatin) 20 Mg Tab 1 Tab PO HS 30 12/05/17 Reported Actonel (Risedronate Sod) 35 Mg Tab 1 Tab PO WK 28 12/05/17 Reported Prinivil (Lisinopril) 5 Mg Tab 5 Mg PO DAILY 12/05/17 Reported Prednisone 5 Mg Tab 5 Mg PO DAILY 12/05/17 Reported Neurontin (Gabapentin) 100 Mg Cap 100 Mg PO UD 12/05/17 Reported take one tablet daily x 7 days, then one tablet every other day x 7 days, then stop Nexium (Esomeprazole Magnesium) 40 Mg Capcr 40 Mg PO DAILY 12/05/17 Reported Flomax (Tamsulosin Hcl) 0.4 Mg Cap 0.4 Mg PO QPM 12/05/17 Reported Mobic (Meloxicam) 15 Mg Tab 15 Mg PO DAILY 12/05/17 Reported Physical Exam Vital Signs (Last 8hrs): Last 8 Hrs Date Time Temp Pulse Resp B/P (MAP) Pulse Ox O2 Delivery O2 Flow Rate FiO2 12/05/17 13:27 36.4 114 18 141/85 (103) 95 Room Air 12/05/17 11:47 95 Room Air 12/05/17 11:47 129 22 12/05/17 11:44 122/72 12/05/17 11:17 119 19 108/94 97 12/05/17 11:13 136 115/82 95 Room Air 12/05/17 11:12 134 18 121/93 95 Room Air 12/05/17 11:11 136 19 119/95 94 Room Air 12/05/17 11:10 139 18 124/100 95 Room Air 12/05/17 11:06 97 19 132/94 95 Room Air 12/05/17 11:05 143 121/91 12/05/17 11:01 121/91 12/05/17 10:48 113/85 12/05/17 10:36 143 18 96 12/05/17 10:31 204/184 12/05/17 10:27 139 19 96 Room Air 12/05/17 10:01 160/102 12/05/17 09:57 144 18 12/05/17 09:32 120/76 12/05/17 09:27 133 14 96 12/05/17 09:23 144 12/05/17 09:10 97 Room Air 12/05/17 09:10 155/90 12/05/17 09:00 36.4 142 18 118/83 97 Room Air General Appearance: Alert and Oriented x3. NAD. Head: Normocephalic Atraumatic. Eyes: PERRLA, EOMI, conjunctiva and sclera clear Neck: Supple. No carotid bruits noted. No JVD. No HJD. Respiratory: Breath sounds clear to auscultation bilaterally. No w/r/r. Cardiovascular: Tachycardic. Reg rate and rhythm. S1 and S2 noted. No murmurs, rubs, gallops. PMI non displace. Abdomen: Normal bowel sounds, soft nontender. no abdominal bruits. Extremities: No edema, no clubbing or cyanosis. distal pulses 2/4 bilaterally. Neuro: No focal deficits. Psychiatric: Normal affect. Data Last Resulted 12/05/17 09:50 Red Blood Count 4.51, Mean Corpuscular Volume 90.2, Mean Corpuscular Hemoglobin 32.2, Mean Corpuscular Hemoglobin Concent 35.6, Mean Platelet Volume 10.1, Neutrophils (%) (Auto) 59.2, Lymphocytes (%) (Auto) 25.1, Monocytes (%) (Auto) 10.1, Eosinophils (%) (Auto) 4.7, Basophils (%) (Auto) 0.2, Neutrophils # (Auto ) 2.53, Lymphocytes # (Auto) 1.07, Monocytes # (Auto) 0.43, Eosinophils # (Auto ) 0.20, Basophils # (Auto) 0.01 Last Resulted 12/05/17 09:50 Past 24 Hours Test 12/05/17 09:50 12/05/17 15:00 Range/Units Prothromb Time International Ratio 1.0 0.9-1.1 Prothrombin Time 10.3 9.0-12.0 SECONDS Troponin I 0.122 *H 0-0.045 ng/ml TSH is within normal limits 1.23 microns international units per liter ProBNP level is borderline elevated at 1413 PG /ml EKG performed repeated at the bedside on the arrival to the telemetry unit on 12/05/17 at 1541 revealed sinus tachycardia versus atrial flutter at 141 bpm with incomplete right bundle branch block and nonspecific ST abnormality Echocardiogram performed today and reviewed independently by the undersigned: Moderate global left ventricular hypokinesis is noted with qualitative left ventricular ejection fraction of 35-40%. Right ventricular chamber size is normal with right ventricular systolic dysfunction is noted with reduced tricuspid annular systolic excursion. No significant valvular heart disease noted Assessment & Plan Impression: 77-year-old male 1. Presents with subjective complaint of easy fatigability, shortness of breath with exertion, exertional chest tightness. EKG / Telemetry is consistent with atrial flutter with rapid ventricular rate I believe this is likely caused a resultant tachycardia induced cardiomyopathy. 2. Mild troponin elevation likely due to myocardial strain in the setting of LV systolic dysfunction and ongoing tachycardia 3. History of hypertension 4. History of spondyloarthropathy, on chronic NSAID treatment with meloxicam 5. Dyslipidemia Discussion/recommendations: The patient's history I do not think this tachycardia came on abruptly within recent hours and it sounds as though it is something that perhaps has been present for some time, even perhaps months. He therefore is at risk for having left atrial/left atrial appendage thrombus. Although his ejection fraction is low, there is no significant valvular heart disease, and I think he is a good candidate for therapy with a direct oral anticoagulant agent, and therefore I have ordered Eliquis to start now. His previously noted DVT prophylaxis Lovenox has been discontinued. I have ordered metoprolol tartrate 25 mg by mouth every 6 hours for rate control , and have ordered a one-time dose of IV digoxin. I debated placing the patient on a diltiazem infusion. In the long-term, I do not think diltiazem is an ideal medication for him given his LV systolic dysfunction and since his tachycardia is nonacute, I do not think we have to guan slowing down. I recommend avoiding antiarrhythmic therapy for the time being as he could have underlying thrombus and acute conversion could provoke cardioembolic stroke. At present, I recommend initiating anticoagulation medication therapy and the patient will be reassessed on a daily basis for possible transesophageal echo cardiac guided direct-current cardioversion during this hospitalization. I think however we will have her best yield if we hold off and allow him to be loaded with medications for a few days as this may increase his success in terms of staying in sinus rhythm if he has been loaded appropriately of beta maría at a time. We'll continue his meloxicam for now as he does have underlying significant arthritis points.
[2017-12-05] MEDS ORDERED: DIGOXIN IV 250 MCG in SYRINGE 9 ML IV ONE (17:00)
[2017-12-05] MEDS ORDERED: CALCIUM 600MG + VIT D 400 IU TAB PO ONE (17:00)
[2017-12-05] MEDS ORDERED: LISINOPRIL 5 MG TAB PO ONE (17:00)
[2017-12-05] MEDS: GABAPENTIN 100 MG CAP PO SCH (17:19)
[2017-12-05] MEDS ORDERED: APIXABAN 2.5 MG TAB PO ONE (17:24)
[2017-12-05] MEDS ORDERED: MELOXICAM 7.5 MG TAB PO ONE (17:30)
[2017-12-05] MEDS: TAMSULOSIN HCL 0.4 MG CAP PO SCH (21:15)
[2017-12-05] MEDS: SIMVASTATIN 20 MG TAB PO SCH (21:16)
[2017-12-05] MEDS: METOPROLOL TARTRATE 25 MG TAB PO SCH (21:16)
[2017-12-05] MEDS ORDERED: DIGOXIN 0.25 MG TAB PO ONE (23:15)
--- NOTE | 2017-12-05 23:19 | Progress Note ---
Progress Note Date of Service Dec 05, 2017. Progress Note ATTENDING NOTE : pt remains in A flutter HR variable 110-130 getting Lopressor 25 mg QID BP 99/64 pt given IV digoxin 250 mcg at 1700 by cardiology ordered for PO 0.25 mg dig X1 on Eliquis cont tele monitoring
[2017-12-06] VITALS (18 sets, daily range): BP systolic 69–127; BP diastolic 45–73; PULSE 71–232; TEMP 36.3–36.8; O2SAT 93–98
[2017-12-06] MEDS: APIXABAN 2.5 MG TAB PO SCH ×2 (06:03→17:18)
[2017-12-06 07:28] LABS: HEMATOCRIT 41.9 % (42-52); HEMOGLOBIN 14.5 g/dL (14.0-18.0); MEAN CELL VOLUME 90.3 fL (80-100); MEAN CORPUSCULAR HEMOGLOBIN 31.3 pg (25-34); MEAN CORPUSCULAR HGB CONC 34.6 g/dl (32-36); MEAN PLATELET VOLUME 10.3 fL (7.4-10.4); PLATELET COUNT 270 K/uL (130-400); RED CELL DISTRIBUTION WIDTH CV 13.1 % (11.5-14.5); RED CELL DISTRIBUTION WIDTH SD 42.8 fL (36.4-46.3); WHITE BLOOD COUNT 5.29 K/uL (4.8-10.8)
[2017-12-06 07:45] LABS: CALCIUM 9.8 mg/dl (8.5-10.1); CREATININE 0.92 mg/dl (0.60-1.40); POTASSIUM 4.1 mmol/L (3.5-5.1)
[2017-12-06] MEDS: MELOXICAM 7.5 MG TAB PO SCH (07:45)
[2017-12-06] MEDS: CALCIUM 600MG + VIT D 400 IU TAB PO SCH (07:45)
[2017-12-06] MEDS: ASPIRIN 81 MG ECTAB PO SCH (07:45)
[2017-12-06] MEDS: METOPROLOL TARTRATE 25 MG TAB PO SCH ×4 (07:45→20:50)
[2017-12-06] MEDS: PANTOprazole SOD 40 MG TAB PO SCH (07:45)
[2017-12-06] MEDS: LISINOPRIL 5 MG TAB PO SCH (07:46)
--- NOTE | 2017-12-06 10:11 | Cardiology Follow-Up ---
Subjective General Date of Service: Dec 06, 2017. Chief Complaint: follow up exertional shortness of breath Pt evaluation today including: conversation w/ patient, physical exam History of Present Illness The patient is a 77 year old male seen in follow up. Patient's heart rate improved to a mild degree with interval treatment with metoprolol and digoxin. EKG this am revealed atrial flutter at 106 bpm. No that is ventricular rate is improved, flutter waves are clearly visible helping to clarify his rhythm. Patient has tolerated Eliquis thus far. On Telemetry Ventricular rates improved to less than 100 bpm during sleep but remains in the 130s with minimal exertion. , Allergies Coded Allergies: No Known Allergies (Unverified , 12/05/17) Social History Smoking Status: Former Smoker Hx Alcohol Use - Type And Amou: No Hx Substance Use - Type And Am: No Physical Exam Vital Signs Last Vital Signs Documentation Date Time Temp Pulse Resp B/P (MAP) Pulse Ox O2 Delivery O2 Flow Rate FiO2 12/06/17 07:45 Room Air 12/06/17 07:42 36.4 76 18 104/66 (79) 94 Physical Exam Constitutional: Level of Distress: mild distress Head: normocephalic Neck: supple, trachea midline Lungs: Auscultation: no wheezing, no rales/crackles, no rhonchi Cardiovascular: Heart Auscultation: RRR, no murmurs, no rubs, tachycardia Abdomen: Inspection & Palpation: soft, non-distended Musculoskeletal: normal Extremities: no cyanosis, no edema Neurologic: Gait & Station: pertinent finding Assessment and Plan Assessment and Plan Impression: 77 year old male 1. Atrial flutter, RVR, with resultant tachycardia induced CM, LVEF moderately reduced 35-40% - no volume overload on examination 2. history of spondyloarthropathy -Meloxicam and prednisone therapy. 3. HTN 4. Dyslipidemia Plan: Mild , but blunt elevation in troponin explain by rapid rate and low LVEF. Continue metoprolol for rate control and Eliquis. I presented patient with options including medications, medications plus cardioversion, or medication plus [facility] ablation with EP. Will proceed with YASMINE today. If no LA appendage thrombus, will proceed with ablation either on Saturday or as outpatient in about 1 week. Patient is going to consider options. For now, continue NPO except mediations. Laboratory Results Last 24 Hours Test 12/05/17 10:30 12/05/17 17:00 12/05/17 17:01 12/05/17 21:02 Urine Color YELLOW Urine Appearance CLEAR Urine pH 5.0 Urine Specific [place] 1.022 Urine Protein NEG Urine Glucose (UA) NEG Urine Ketones NEG Urine Occult Blood NEG Urine Nitrite NEG Urine Bilirubin NEG Urine Urobilinogen NEG Urine Leukocyte Esterase NEG Urine Opiates Screen NEG Urine Methadone, Qualitative NEG Urine Barbiturates NEG Urine Phencyclidine (PCP) Level NEG Ur Amphetamine/Methamphetamine NEG MDMA (Ecstasy) Screen NEG Urine Benzodiazepines Screen NEG Urine Cocaine Metabolite NEG Urine Marijuana (THC) NEG Troponin I 0.107 ng/ml 0.114 ng/ml Test 12/06/17 07:10 White Blood Count 5.29 K/uL Red Blood Count 4.64 M/uL Hemoglobin 14.5 g/dL Hematocrit 41.9 % Mean Corpuscular Volume 90.3 fL Mean Corpuscular Hemoglobin 31.3 pg Mean Corpuscular Hemoglobin Concent 34.6 g/dl RDW Standard Deviation 42.8 fL RDW Coefficient of Variation 13.1 % Platelet Count 270 K/uL Mean Platelet Volume 10.3 fL Sodium Level 136 mmol/L Potassium Level 4.1 mmol/L Chloride Level 104 mmol/L Carbon Dioxide Level 27 mmol/L Anion Gap 5.0 mmol/L Blood Urea Nitrogen 22 mg/dl Creatinine 0.92 mg/dl Est Creatinine Clear Calc Drug Dose 81.6 ml/min Estimated GFR () 93.3 Estimated GFR (Non- 80.5 BUN/Creatinine Ratio 23.9 Random Glucose 106 mg/dl Calcium Level 9.8 mg/dl Triglycerides Level 191 mg/dl Cholesterol Level 150 mg/dl HDL Cholesterol 34 mg/dl LDL Cholesterol, Calculated 78 mg/dl VLDL Cholesterol, Calculated 38 mg/dl Cholesterol/HDL Ratio 4.4
[2017-12-06] MEDS ORDERED: PROPOFOL IV EMULSION 10 MG/ML 20 ML VIAL IV ONE (10:24)
[2017-12-06] MEDS ORDERED: LIDOCAINE HCL 2% 2 ML VIAL (20MG/ML) ONE (10:24)
--- NOTE | 2017-12-06 11:30 | Cardiology Procedure Brief Nt ---
Preliminary Cardiology Note Procedure Date Dec 06, 2017. Pre-Procedure Diagnosis Atrial flutter, exclude left atrial thrombus Post-Procedure Diagnosis No left atrial or left atrial appendage thrombus Procedure(s) Performed YASMINE Transactional Attorney Christianne Tamayo DO Podiatrist Assistant(s) MICHAEL Holcomb Estimated Blood Loss none Preliminary Findings Atrial flutter with RVR was present during the study. Severe global left ventricular hypokinesis was present with LVEF 35% The left atrium was moderately to severely dilated. There is no LA or left atrial appendage thrombus. A small PFO with trace R To L shunt was noted. There is a small focal pericardial effusion adjacent to the left atrial appendage. Recommendations Continue metoprolol and Eliquis. Plan for AFL ablation Saturday. Specimens none Anesthesia Lidocaine 30 mg IV, propofol 150 mg IV Complication(s) None Disposition Post cardiac manufacturing lab technician recovery area, then return to telemetry
--- NOTE | 2017-12-06 11:56 | Anesthesiology Progress Note ---
Anesthesia Post Op Note Date & Time Dec 06, 2017 at 11:56 Vital Signs Pain Intensity: 0.0 Vital Signs Past 12 Hours Date Time Temp Pulse Resp B/P (MAP) Pulse Ox O2 Delivery O2 Flow Rate FiO2 12/06/17 11:47 111 16 94/56 (69) 98 Room Air 12/06/17 11:37 105 18 82/56 (65) 99 Room Air 12/06/17 11:30 128 18 102/56 98 Room Air 12/06/17 11:27 131 18 92/60 (71) 99 Room Air 12/06/17 11:25 132 18 86/55 98 Room Air 4 12/06/17 11:20 132 18 69/45 98 Nasal Cannula 6 12/06/17 11:15 141 18 86/45 98 Nasal Cannula 6 12/06/17 11:10 117 18 78/45 98 Nasal Cannula 6 12/06/17 11:05 232 18 127/70 98 Nasal Cannula 6 12/06/17 11:00 123 18 90/61 98 Nasal Cannula 6 12/06/17 07:45 Room Air 12/06/17 07:42 36.4 76 18 104/66 (79) 94 Room Air 12/06/17 04:01 Room Air 12/06/17 03:05 36.7 106 18 98/61 (73) 96 Room Air 12/06/17 00:02 Room Air Notes Mental Status: alert / awake / arousable, participated in evaluation Pt Amnestic to Procedure: Yes Nausea / Vomiting: adequately controlled Pain: adequately controlled Airway Patency, RR, SpO2: stable & adequate BP & HR: stable & adequate Hydration State: stable & adequate Anesthetic Complications: no major complications apparent
--- NOTE | 2017-12-06 12:47 | Clinical Documentation Query ---
CLINICAL DOCUMENTATION QUERY Dr. BAILEY, In your clinical opinion is this patient being managed for: ( x ) demand ischemia ( ) Not Agree ( ) Other explanation of clinical findings (Please Explain) ( ) Unable to determine (Please Define) ( ) Need to Discuss The medical record reflects the following clinical findings, treatment, and risk factors. Clinical Indicators: 77 yo male presenting with A flutter and mild trop elevation. trop 0.122/0.107/0.114, Heart rate 142 Treatment:tele, cardiology consult, YASMINE, serial trops, plan for ablation next week Risk Factors: A flutter with RVR Please clarify and document your clinical opinion in the progress notes and discharge summary. Terms such as "probable", "suspected", "likely", "questionable", "possible", or "still to be ruled out" are acceptable. IF IN AGREEMENT, YOU MUST DOCUMENT ABOVE DIAGNOSTIC STATEMENT IN DAILY PROGRESS NOTES AND DISCHARGE SUMMARY. This document is not part of the patient's record. Thank You, Shannan Dawkins RN [phone]
--- NOTE | 2017-12-06 17:13 | Cardiology Progress Note ---
Cardiology Progress Note Date of Service Dec 06, 2017. Cardiology Progress Note Patient would like to proceed with AFL ablation. Case discussed with Dr Aguillon of EP. Will hold Eliquis pre EP study. Last dose am of 12/08/17, no PM dose on Saturday, procedure is Saturday am (no dose Saturday AM either).
[2017-12-06] MEDS: GABAPENTIN 100 MG CAP PO SCH (17:16)
--- NOTE | 2017-12-06 18:04 | Cardiology Consultation ---
Cardiology Consultation Date of Consultation: Dec 06, 2017. Requesting Physician: Belkis Reason for Consultation: Atrial flutter Pt evaluation today including: conversation w/ patient, physical exam, chart review, lab review, review of studies, conversation w/ service consultant, review of inpatient medication list History of Present Illness The patient is a 77-year-old gentleman without any known cardiac history who began experiencing symptoms exercise intolerance and dyspnea several weeks ago. He did suffer from the shingles recently and states that subsequent to that episode he began to experience the symptoms. It became progressive to the point where even with limited activity he had significant dyspnea. He did describe some symptoms of indigestion after eating. The symptoms were not exertional. He did not have other symptoms of chest discomfort. He cannot recall symptoms of dizziness or lightheadedness. He has not suffered any syncopal episodes. He did not describe orthopnea or paroxysmal nocturnal dyspnea. He has not had any lower extremity edema or increasing abdominal girth. Normally the gentleman is quite active. He is accustomed to walking long distances and not having significant dyspnea. He does not have exertional chest pain. He has not been aware of any palpitations or rapid heartbeats. Past Medical/Surgical History Past Medical History: 1. Hypertension 2. Dyslipidemia 3. HLA-B27 spondyloarthropathy 4. Lichen planus 5. Arthritis 6. Osteoporosis 7. Polymyalgia rheumatica 8. Benign prostatic hypertrophy Past Surgical History: 1. History of hernia repair 2. History of cataract surgery Family History FH: cirrhosis MOTHER FH: lung cancer FATHER Patient's brother of HIV/AIDS Patient's father had a history of cancer and reportedly due to congestive heart failure at the age of 66. His mother due to cirrhosis, details unknown Social History Smoking Status: Former Smoker History of Alcohol Use: No Patient describes drinking 2-3 alcoholic beverages per day. He quit smoking a long time ago. 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 Review of Systems Per HPI. Prior history of shingles, resolved. He did have some urinary retention previously. No recent fevers or chills. All Other Systems: Reviewed and Negative Allergies Coded Allergies: No Known Allergies (Unverified , 12/05/17) Medications Current Inpatient Medications Medications (Trade) Dose Ordered Sig/Beverley Route Start Time Stop Time Status Last Admin Dose Admin Acetaminophen (Tylenol Tab) 650 mg Q4H PRN PO 12/05/17 12:00 01/04/18 11:59 Aspirin (Ecotrin Tab) 81 mg QAM PO 12/06/17 09:00 01/05/18 08:59 12/06/17 07:45 81 MG Calcium/Vitamin D (Caltrate Plus Tab) 2 tab DAILY PO 12/06/17 09:00 01/05/18 08:59 12/06/17 07:45 2 TAB Gabapentin (Neurontin Cap) 100 mg DAILY@1700 PO 12/05/17 17:00 12/11/17 17:01 12/06/17 17:16 100 MG Lisinopril (Zestril Tab) 5 mg DAILY PO 12/06/17 09:00 01/05/18 08:59 12/06/17 07:46 5 MG Meloxicam (Mobic Tab) 15 mg DAILY PO 12/06/17 09:00 01/05/18 08:59 12/06/17 07:45 15 MG Prednisone (PredniSONE TAB) 5 mg DAILY PO 12/06/17 09:00 01/05/18 08:59 12/06/17 08:13 5 MG Simvastatin (Zocor Tab) 20 mg HS PO 12/05/17 21:00 01/04/18 20:59 12/05/17 21:16 20 MG Tamsulosin HCl (Flomax Cap) 0.4 mg QPM PO 12/05/17 21:00 01/04/18 20:59 12/05/17 21:15 0.4 MG Pantoprazole Sodium (Protonix Tab) 40 mg DAILY PO 12/06/17 09:00 01/05/18 08:59 12/06/17 07:45 40 MG Metoprolol Tartrate (Lopressor Tab) 25 mg QID PO 12/05/17 21:00 01/04/18 20:59 12/06/17 17:16 25 MG Gabapentin (Neurontin Cap) 100 mg Q2D@1700 PO 12/13/17 17:00 12/19/17 23:59 Apixaban (Eliquis Tab) 5 mg Q12H PO 12/06/17 07:00 01/05/18 06:59 Future Hold 12/06/17 17:18 5 MG Physical Exam Vital Signs Past 12 Hours Date Time Temp Pulse Resp B/P (MAP) Pulse Ox O2 Delivery O2 Flow Rate FiO2 12/06/17 15:11 36.3 73 18 98/59 (72) 94 Room Air 12/06/17 13:22 36.4 130 18 96/67 (77) 12/06/17 13:03 36.3 100 18 104/65 (78) 94 Room Air 12/06/17 12:15 Room Air 12/06/17 12:15 87 18 112/64 (80) 94 Room Air 12/06/17 12:00 36.3 86 18 111/73 (86) 93 Room Air 12/06/17 12:00 36.3 86 18 111/73 (86) 93 Room Air 12/06/17 11:47 111 16 94/56 (69) 98 Room Air 12/06/17 11:37 105 18 82/56 (65) 99 Room Air 12/06/17 11:30 128 18 102/56 98 Room Air 12/06/17 11:27 131 18 92/60 (71) 99 Room Air 12/06/17 11:25 132 18 86/55 98 Room Air 4 12/06/17 11:20 132 18 69/45 98 Nasal Cannula 6 12/06/17 11:15 141 18 86/45 98 Nasal Cannula 6 12/06/17 11:10 117 18 78/45 98 Nasal Cannula 6 12/06/17 11:05 232 18 127/70 98 Nasal Cannula 6 12/06/17 11:00 123 18 90/61 98 Nasal Cannula 6 12/06/17 07:45 Room Air 12/06/17 07:42 36.4 76 18 104/66 (79) 94 Room Air Lungs: Auscultation: no wheezing, no rales/crackles, no rhonchi Cardiovascular: Heart Auscultation: RRR, no murmurs, no rubs, tachycardia Abdomen: Inspection & Palpation: soft, non-distended Extremities: no cyanosis, no edema Neurologic: Gait & Station: pertinent finding The patient is alert and oriented. Mood and affect appeared normal. He answered all questions appropriately. HEENT: Pupils are equal and reactive to light and accommodation. Extraocular movements are intact. The sclerae are anicteric. Neuro: Cranial nerves intact Neck: Patient's neck is supple. He has palpable carotid pulses bilaterally without bruits on auscultation. There is no evidence of jugular venous distention. The thyroid is not enlarged. Lungs: Some crackles in the left base. He has good air movement without use of accessory muscles. No rales wheezes or rhonchi. Cardiac: Heart demonstrates a regular rate and rhythm with tachycardia. Normal S1 and S2. No murmurs on examination. Pulses: The patient has palpable radial pulses bilaterally that are equal in intensity Extremities: There was no evidence of hypoperfusion. There is no cyanosis or clubbing. There is no edema. Skin: I did not appreciate any rashes on examination today. Data Laboratory Results: Last 24 Hours Test 12/05/17 21:02 12/06/17 07:10 Troponin I 0.114 ng/ml White Blood Count 5.29 K/uL Red Blood Count 4.64 M/uL Hemoglobin 14.5 g/dL Hematocrit 41.9 % Mean Corpuscular Volume 90.3 fL Mean Corpuscular Hemoglobin 31.3 pg Mean Corpuscular Hemoglobin Concent 34.6 g/dl RDW Standard Deviation 42.8 fL RDW Coefficient of Variation 13.1 % Platelet Count 270 K/uL Mean Platelet Volume 10.3 fL Sodium Level 136 mmol/L Potassium Level 4.1 mmol/L Chloride Level 104 mmol/L Carbon Dioxide Level 27 mmol/L Anion Gap 5.0 mmol/L Blood Urea Nitrogen 22 mg/dl Creatinine 0.92 mg/dl Est Creatinine Clear Calc Drug Dose 81.6 ml/min Estimated GFR () 93.3 Estimated GFR (Non- 80.5 BUN/Creatinine Ratio 23.9 Random Glucose 106 mg/dl Calcium Level 9.8 mg/dl Triglycerides Level 191 mg/dl Cholesterol Level 150 mg/dl HDL Cholesterol 34 mg/dl LDL Cholesterol, Calculated 78 mg/dl VLDL Cholesterol, Calculated 38 mg/dl Cholesterol/HDL Ratio 4.4 Imaging: Chest x-ray demonstrated some atelectasis but no other acute process. CT PE protocol did not demonstrate any pulmonary embolus. He had some emphysematous changes EKG: Atrial flutter with rapid rate Telemetry reviewed: Atrial flutter with rapid rate Echocardiogram demonstrated reduced LV systolic function with an estimated ejection fraction 35 percent. There was mild reduction in RV function as well. Mild left atrial enlargement. She YASMINE was performed today which did not demonstrate any evidence of atrial thrombus. Assessment & Plan 1. Atrial flutter: Patient's EKG suggests typical isthmus dependent right atrial flutter. It is very likely that the patient has had sustained high heart rates for an extended period of time resulting in reduced LV systolic function. Attempted adequate rate control have been difficult. He was started on anticoagulation recently and does not have any evidence left atrial appendage thrombus. Based on his EKG he appears to be a good candidate for ablation therapy. The success rate of the ablation is expected to be quite high morbidity quite low. This would provide a more reliable means for eliminating his arrhythmia. Eventually he could be taken off of anticoagulation as well. I did discuss the procedure and the attendant risks with the patient today. As this is Saturday our next available opportunity for ablation will be Saturday morning. Will plan on performing the procedure at that time. He in the interim he should continue his anticoagulation but no Eliquis evening before the procedure or the morning of the procedure. 2. Left ventricular systolic failure: He appears to be well compensated currently. He certainly has an element of exercise intolerance but at rest he appears comfortable in his lung examination is relatively benign. Hopefully this is tachycardia induced and he will have recovery of his LV function once the arrhythmia has been eliminated.
--- NOTE | 2017-12-06 18:47 | Cardiology Progress Note ---
Cardiology Progress Note Date of Service Dec 06, 2017. Cardiology Progress Note Per patient request , I called patient's significant other Jerome and his daughter Radha Marie , phone [phone]. I updated them on findings and treatment planned and answered questions.
--- NOTE | 2017-12-06 19:24 | Progress Note ---
Internal Med Progress Note Date of Service: Dec 06, 2017. Provider Documentation: SUBJECTIVE: resting comfortably s/p YASMINE today no chest pain or sob no palpitations afebrile no nausea wanted to go home before procedure on Saturday but agreed to stay OBJECTIVE: Vital Signs-as noted below Exam: General-alert and oriented. Not in distress ENT-Normal hearing Neck-no neck masses Lungs-cta b/l no wheezing or crackles Heart-S 1 and S 2heard irregular rhythm no murmurs Abdomen-soft bowel sounds present non tender no distension Extremities-no edema no erythema Neuro-alert and awake moves extremities Lab data as noted below. ASSESSMENT & PLAN: TACHYCARDIA, ELEVATED TROPONIN A flutter presented with Sob on exertion for couple of months received a dose of iv Lopressor and iv digoxin started on eliquis currently on po Lopressor 25mg qid s/p YASMINE and no LA appendage thrombus plan for ablation on Saturday Not to give eliquis on Saturday evening and Saturday morning continue to monitor. Mild elevation of troponin mostly demand ischemia from above trending dowen Systolic CHF new onset? echo shows LV global hypokinesis with EF 35-40% mostly tachycardia induced will monitor for volume overload. HX PMR, LICHEN PLANUS, HLA-B27 SPONDYLOARTHROPATHY, OSTEOARTHRITIS on chronic Prednisone 5mg daily - will continue stable POST HERPETIC NEURALGIA was started on gabapentin ~ 2 months ago - per PCP, will start tapering DVT PROPHYLAXIS Eliquis DISPO Await procedure on Saturday expect to d/c home and followup with pcp and cardiology Vital Signs: Date Time Temp Pulse Resp B/P (MAP) Pulse Ox O2 Delivery O2 Flow Rate FiO2 12/06/17 16:03 95 Room Air 12/06/17 15:11 36.3 73 18 98/59 (72) 94 Room Air 12/06/17 13:22 36.4 130 18 96/67 (77) 12/06/17 13:03 36.3 100 18 104/65 (78) 94 Room Air 12/06/17 12:15 Room Air 12/06/17 12:15 87 18 112/64 (80) 94 Room Air 12/06/17 12:00 36.3 86 18 111/73 (86) 93 Room Air 12/06/17 12:00 36.3 86 18 111/73 (86) 93 Room Air 12/06/17 11:47 111 16 94/56 (69) 98 Room Air 12/06/17 11:37 105 18 82/56 (65) 99 Room Air 12/06/17 11:30 128 18 102/56 98 Room Air 12/06/17 11:27 131 18 92/60 (71) 99 Room Air 12/06/17 11:25 132 18 86/55 98 Room Air 4 12/06/17 11:20 132 18 69/45 98 Nasal Cannula 6 12/06/17 11:15 141 18 86/45 98 Nasal Cannula 6 12/06/17 11:10 117 18 78/45 98 Nasal Cannula 6 12/06/17 11:05 232 18 127/70 98 Nasal Cannula 6 12/06/17 11:00 123 18 90/61 98 Nasal Cannula 6 12/06/17 07:45 Room Air 12/06/17 07:42 36.4 76 18 104/66 (79) 94 Room Air 12/06/17 04:01 Room Air 12/06/17 03:05 36.7 106 18 98/61 (73) 96 Room Air 12/06/17 00:02 Room Air 12/05/17 23:50 70 12/05/17 23:23 36.4 67 18 98/66 (77) 96 Room Air 12/05/17 20:49 139 99/68 (78) 12/05/17 20:00 Room Air 12/05/17 19:39 36.7 126 20 97/58 (71) 94 Room Air Lab Results: Results Past 24 Hours Test 12/05/17 21:02 12/06/17 07:10 Range/Units Troponin I 0.114 0-0.045 ng/ml White Blood Count 5.29 4.8-10.8 K/uL Red Blood Count 4.64 4.7-6.1 M/uL Hemoglobin 14.5 14.0-18.0 g/dL Hematocrit 41.9 42-52 % Mean Corpuscular Volume 90.3 80-100 fL Mean Corpuscular Hemoglobin 31.3 25-34 pg Mean Corpuscular Hemoglobin Concent 34.6 32-36 g/dl RDW Standard Deviation 42.8 36.4-46.3 fL RDW Coefficient of Variation 13.1 11.5-14.5 % Platelet Count 270 130-400 K/uL Mean Platelet Volume 10.3 7.4-10.4 fL Sodium Level 136 136-145 mmol/L Potassium Level 4.1 3.5-5.1 mmol/L Chloride Level 104 98-107 mmol/L Carbon Dioxide Level 27 21-32 mmol/L Anion Gap 5.0 3-11 mmol/L Blood Urea Nitrogen 22 7-18 mg/dl Creatinine 0.92 0.60-1.40 mg/dl Est Creatinine Clear Calc Drug Dose 81.6 ml/min Estimated GFR () 93.3 Estimated GFR (Non- 80.5 BUN/Creatinine Ratio 23.9 10-20 Random Glucose 106 70-99 mg/dl Calcium Level 9.8 8.5-10.1 mg/dl Triglycerides Level 191 0-150 mg/dl Cholesterol Level 150 0-200 mg/dl HDL Cholesterol 34 mg/dl LDL Cholesterol, Calculated 78 mg/dl VLDL Cholesterol, Calculated 38 mg/dl Cholesterol/HDL Ratio 4.4
--- NOTE | 2017-12-06 20:15 | TEE ---
*NOTICE TO RECEIVING [employer] This information is strictly Confidential and protected under [place] law. [place] law prohibits you from making any further disclosure of this information unless further disclosure is expressly permitted by the written consent of the person to whom it pertains or is authorized by law. A general authorization for the release of medical or other information is not sufficient for this purpose. Hospital accepts no responsibility if the information is made available to any other person, INCLUDING THE PATIENT. Interpretation Summary * Name: CRISTINA RODARTE Study Date: 12/06/2017 10:40 AM BP: 112/74 mmHg * Patient Location: [facility]\S\[id number]\S\1 HR: 132 * : 1940 (M/d/yyyy) Gender: Male Height: 75 in * Age: 77 yrs Ethnicity: [place] Weight: 220 lb * Ordering Physician: John Tamayo * Referring Physician: Nikita Brady * Performed By: Prakash Oquendo RCS * * Reason For Study: A-Flutter * BSA: 2.3 m2 * -- Conclusions -- * Atrial flutter with rapid ventricualar rate was present during the YASMINE. * The left atrium is severely dilated. * There was hypocontractility of the left atrial appendage by qualitative visual assessment. * No thrombus is detected in the left atrial appendage. * No left atrial mass or thrombus visualized. * Left ventricular systolic function is severely reduced. * The LV Ejection Fraction = 25-30%. * The right ventricle is normal size. * The right ventricular systolic function is mild to moderately reduced. * There is a small loculated pericardial effusion adjacent to the left atrium and left atrial appendage. Procedure Details * YASMINE Probe #1 utilized for procedure. * The study was performed in Cardiac Catheterization Lab. * Time out was conducted by the physician, nurse, and technical maintenance specialist with positive identification of patient and procedure. * Informed consent for Transesophageal Echocardiogram was obtained prior to the procedure. * An intravenous line was placed. A topical anesthetic agent was used for oropharangeal anesthesia. A bite block was inserted. * Sedation performed by the anesthesia department. * The patient's vital signs, including blood pressure, heart rate, pulse oximetry and cardiac rhythm were monitored throughout the procedure . * Propofol 150 mg was administered for procedural sedation. Lidocaine 30 mcg was administered for procedural sedation Procedure Start Time: 1105 Procedure Stop Time: 1122 * A multifrequency, multiplane transesopheageal echocardiographic endoscope was inserted and manipulated in the standard fashion to achieve multiplane views. * The transesophageal probe was passed without difficulty. * Contrast injection with agitated saline was performed. * The patient tolerated the procedure well without evidence of orophangeal or esophageal trauma. * A 2D transesophageal echocardiogram was performed. * A 2D transesophageal echocardiogram with color flow Doppler was performed. * A 2D transesophageal echocardiogram with Doppler and color flow Doppler was performed. Left Ventricle * The left ventricle is normal in size. * There is normal left ventricular wall thickness. * Left ventricular systolic function is severely reduced. * Ejection Fraction = 25-30%. * There is severe global hypokinesis of the left ventricle. Right Ventricle * The right ventricle is normal size. * The right ventricular systolic function is mild to moderately reduced. Atria * The left atrium is severely dilated. * There was hypocontractility of the left atrial appendage by qualitative visual assessment. * No thrombus is detected in the left atrial appendage. * No left atrial mass or thrombus visualized. * Right atrial size is normal. * There was a small PFO with trace right to left shunt demonstrated with the administration of agitated saline contrast. Mitral Valve * The mitral valve anatomy is normal. * There is no vegetation seen on the mitral valve. * There is no mitral valve stenosis. * Significant mitral regurgitation is absent. Tricuspid Valve * The tricuspid valve is normal. * There is no tricuspid stenosis. * Significant tricuspid regurgitation is absent. Aortic Valve * The aortic valve is trileaflet. * No hemodynamically significant valvular aortic stenosis. * No aortic regurgitation is present. Pulmonic Valve * The pulmonic valve is not well seen, but is grossly normal. Great Vessels * The aortic root is normal size. * Mild nonmobile atheromatous disease as noted in the thoracic aortia. Pericardium * There is a small loculated pericardial effusion adjacenet to the left atrium and left atrial appendage.
[2017-12-06] MEDS: TAMSULOSIN HCL 0.4 MG CAP PO SCH (20:49)
[2017-12-06] MEDS: SIMVASTATIN 20 MG TAB PO SCH (20:50)
[2017-12-07] VITALS (7 sets, daily range): BP systolic 90–143; BP diastolic 55–88; PULSE 70–137; TEMP 36.2–36.6; O2SAT 92–95
[2017-12-07] MEDS: METOPROLOL TARTRATE 25 MG TAB PO SCH ×4 (07:34→20:48)
[2017-12-07] MEDS: PANTOprazole SOD 40 MG TAB PO SCH (07:34)
[2017-12-07] MEDS: LISINOPRIL 5 MG TAB PO SCH (07:34)
[2017-12-07] MEDS: APIXABAN 2.5 MG TAB PO SCH ×2 (07:34→18:43)
[2017-12-07] MEDS: MELOXICAM 7.5 MG TAB PO SCH (07:35)
[2017-12-07] MEDS: CALCIUM 600MG + VIT D 400 IU TAB PO SCH (07:35)
[2017-12-07] MEDS: ASPIRIN 81 MG ECTAB PO SCH (07:35)
[2017-12-07] MEDS ORDERED: METOPROLOL TARTRATE 50 MG TAB PO STA (16:29)
--- NOTE | 2017-12-07 16:33 | Cardiology Follow-Up ---
Subjective General Date of Service: Dec 07, 2017. Chief Complaint: follow up exertional shortness of breath Pt evaluation today including: conversation w/ patient, physical exam, chart review, lab review, review of studies, review of inpatient medication list History of Present Illness The patient is a 77 year old male seen in follow up. Report palpitations and cardiac awareness with activity. Asymptomatic at rest. No chest pain. Average heart rate 110BPM on telemetry. Allergies Coded Allergies: No Known Allergies (Unverified , 12/05/17) Social History Smoking Status: Former Smoker Hx Alcohol Use - Type And Amou: No Hx Substance Use - Type And Am: No Review of Systems Respiratory: No cough, No sputum, No wheezing, No shortness of breath, No dyspnea on exertion, No dyspnea at rest, No hemoptysis Cardiac: + palpitations, No chest pain, No orthopnea, No PND, No edema, No claudication Physical Exam Vital Signs Last Vital Signs Documentation Date Time Temp Pulse Resp B/P (MAP) Pulse Ox O2 Delivery O2 Flow Rate FiO2 12/07/17 16:18 36.5 75 20 99/59 (72) 94 Room Air 12/06/17 11:25 4 Physical Exam Head: normocephalic Neck: supple, trachea midline Lungs: Auscultation: no wheezing, no rales/crackles, no rhonchi Cardiovascular: Heart Auscultation: RRR, no murmurs, no rubs, tachycardia Abdomen: Inspection & Palpation: soft, non-distended Musculoskeletal: normal Extremities: no cyanosis, no edema Neurologic: Gait & Station: pertinent finding Assessment and Plan Assessment and Plan Impression: 1. Atrial flutter with RVR, with resultant tachycardia induced CM, LVEF moderately reduced 35-40% - patient compensated - No LA appendage thrombus on YASMINE - did not receive 1pm dose of metoprolol due to borderline hypotension 2. History of spondyloarthropathy on chronic prednisone and meloxicam 3. HTN - borderline hypotension noted 4. Dyslipidemia Plan: Give 25mg metoprolol x1 now. Hold lisinopril to allow for rate control medication. Continue Eliquis today with plans to hold evening dose 12/08 in anticipation of flutter ablation saturday. Follow telemetry.
[2017-12-07] MEDS: GABAPENTIN 100 MG CAP PO SCH (17:41)
--- NOTE | 2017-12-07 19:16 | Progress Note ---
Medicine Progress Note Date & Time of Visit: Dec 07, 2017 at 13:30 . Subjective CC: Follow-up visit for atrial flutter and other problems. HPI: Remains in atrial flutter with variable conduction. No chest pain, SOB, edema. ROS: General- no fever, no chills Resp- no cough; no shortness of breath Cardiac- as noted above in HPI GI- no nausea, no vomiting, no diarrhea - no hematuria . Objective Last 8 Hrs Date Time Temp Pulse Resp B/P (MAP) Pulse Ox O2 Delivery O2 Flow Rate FiO2 12/07/17 17:40 137 121/78 (92) 12/07/17 16:18 36.5 75 20 99/59 (72) 94 Room Air 12/07/17 16:00 Room Air 12/07/17 12:06 36.2 86 18 90/65 (73) 94 Room Air 12/07/17 12:00 Room Air Physical Exam: General- lying in bed; no distress Lungs- clear to auscultation; no respiratory distress Cardiovascular- irregular; no murmur or gallop appreciated; no JVD; no pretibial edema Abdomen- + bowel sounds, soft, nontender Extremities- no cyanosis; no calf tenderness Neuro- alert, oriented Skin- warm & dry . Assessment & Plan ATRIAL FLUTTER Continue metoprolol for rate control. Continue anticoagulation with apixaban. No apparent thrombi on YASMINE. Ablation recommended. REDUCED LVEF LVEF 35% per echo. 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 Lisinopril held due to initiation of metoprolol. ELEVATED TROPONINS Probable demand ischemia from tachycardia. HYPERTENSION Lisinopril held due to initiation of metoprolol. Follow and titrate Rx. DYSLIPIDEMIA Continue simvastatin. VTE PROPHYLAXIS Continue apixaban. Ambulate. DISPOSITION Expected discharge to home. Family Medicine follow-up with Dr. Brady. Cardiology follow-up. . Current Inpatient Medications: Current Inpatient Medications Medications (Trade) Dose Ordered Sig/Beverley Route Start Time Stop Time Status Last Admin Dose Admin Acetaminophen (Tylenol Tab) 650 mg Q4H PRN PO 12/05/17 12:00 01/04/18 11:59 Aspirin (Ecotrin Tab) 81 mg QAM PO 12/06/17 09:00 01/05/18 08:59 12/07/17 07:35 81 MG Calcium/Vitamin D (Caltrate Plus Tab) 2 tab DAILY PO 12/06/17 09:00 01/05/18 08:59 12/07/17 07:35 2 TAB Gabapentin (Neurontin Cap) 100 mg DAILY@1700 PO 12/05/17 17:00 12/11/17 17:01 12/07/17 17:41 100 MG Lisinopril (Zestril Tab) 5 mg DAILY PO 12/06/17 09:00 01/05/18 08:59 Future Hold 12/07/17 07:34 5 MG Meloxicam (Mobic Tab) 15 mg DAILY PO 12/06/17 09:00 01/05/18 08:59 12/07/17 07:35 15 MG Prednisone (PredniSONE TAB) 5 mg DAILY PO 12/06/17 09:00 01/05/18 08:59 12/07/17 07:35 5 MG Simvastatin (Zocor Tab) 20 mg HS PO 12/05/17 21:00 01/04/18 20:59 12/06/17 20:50 20 MG Tamsulosin HCl (Flomax Cap) 0.4 mg QPM PO 12/05/17 21:00 01/04/18 20:59 12/06/17 20:49 0.4 MG Pantoprazole Sodium (Protonix Tab) 40 mg DAILY PO 12/06/17 09:00 01/05/18 08:59 12/07/17 07:34 40 MG Metoprolol Tartrate (Lopressor Tab) 25 mg QID PO 12/05/17 21:00 01/04/18 20:59 12/07/17 07:34 25 MG Gabapentin (Neurontin Cap) 100 mg Q2D@1700 PO 12/13/17 17:00 12/19/17 23:59 Apixaban (Eliquis Tab) 5 mg Q12H PO 12/06/17 07:00 01/05/18 06:59 Future Hold 12/07/17 18:43 5 MG
[2017-12-07] MEDS: SIMVASTATIN 20 MG TAB PO SCH (20:47)
[2017-12-07] MEDS: TAMSULOSIN HCL 0.4 MG CAP PO SCH (20:49)
[2017-12-08] VITALS (11 sets, daily range): BP systolic 90–138; BP diastolic 62–85; PULSE 70–140; TEMP 36.4–37.4; O2SAT 94–98
[2017-12-08] MEDS: APIXABAN 2.5 MG TAB PO SCH (06:10)
[2017-12-08] MEDS: METOPROLOL TARTRATE 25 MG TAB PO SCH ×4 (08:02→21:28)
[2017-12-08] MEDS: MELOXICAM 7.5 MG TAB PO SCH (08:02)
[2017-12-08] MEDS: CALCIUM 600MG + VIT D 400 IU TAB PO SCH (08:03)
[2017-12-08] MEDS: ASPIRIN 81 MG ECTAB PO SCH (08:03)
[2017-12-08] MEDS: PANTOprazole SOD 40 MG TAB PO SCH (08:03)
--- NOTE | 2017-12-08 11:41 | Cardiology Follow-Up ---
Subjective General Date of Service: Dec 08, 2017. Chief Complaint: follow up exertional shortness of breath Pt evaluation today including: conversation w/ patient, physical exam, chart review, lab review, review of studies, review of inpatient medication list History of Present Illness The patient is a 77 year old male seen in follow-up. Heart rate ranges from 70 bpm up to 140 bpm on telemetry. Remains in atrial flutter. Palpitations noted. Denies lightheadedness or dizziness. Denies chest discomfort. is present at bedside. Allergies Coded Allergies: No Known Allergies (Unverified , 12/05/17) Social History Smoking Status: Former Smoker Hx Alcohol Use - Type And Amou: No Hx Substance Use - Type And Am: No Review of Systems Respiratory: No cough, No sputum, No wheezing, No shortness of breath, No dyspnea on exertion, No dyspnea at rest, No hemoptysis Cardiac: + palpitations, No chest pain, No orthopnea, No PND, No edema, No claudication Physical Exam Vital Signs Last Vital Signs Documentation Date Time Temp Pulse Resp B/P (MAP) Pulse Ox O2 Delivery O2 Flow Rate FiO2 12/08/17 11:25 36.5 99 20 112/74 (87) 95 Room Air 12/06/17 11:25 4 Physical Exam Head: normocephalic Neck: supple, trachea midline Lungs: Auscultation: no wheezing, no rales/crackles, no rhonchi Cardiovascular: Heart Auscultation: RRR, no murmurs, no rubs, tachycardia Abdomen: Inspection & Palpation: soft, non-distended Musculoskeletal: normal Extremities: no cyanosis, no edema Neurologic: Gait & Station: pertinent finding Assessment and Plan Assessment and Plan Impression: 1. Atrial flutter with RVR, with resultant tachycardia induced CM, LVEF moderately reduced 35-40% - patient compensated - No LA appendage thrombus on YASMINE 2. History of spondyloarthropathy on chronic prednisone and meloxicam 3. HTN - borderline hypotension noted; lisinopril discontinued 4. Dyslipidemia Plan: Continue metoprolol. Lisinopril will remain on hold. Hold evening dose of Eliquis tonite in anticipation of flutter ablation. Follow telemetry.
[2017-12-08] MEDS ORDERED: BISACODYL 5 MG TABEC PO PRN (13:00)
[2017-12-08] MEDS ORDERED: ALUMINUM/MAGNESIUM/SIMETH (MAALOX MAX) 30 ML UDC PO PRN (13:00)
[2017-12-08] MEDS ORDERED: POLYETHYLENE (MIRALAX) 17 GM PACK PO PRN (13:00)
[2017-12-08] MEDS ORDERED: POLYETHYLENE (MIRALAX) 17 GM PACK PO SCH (16:00)
[2017-12-08] MEDS: GABAPENTIN 100 MG CAP PO SCH (17:18)
--- NOTE | 2017-12-08 20:18 | Progress Note ---
Medicine Progress Note Date & Time of Visit: Dec 08, 2017 at 10:50 . Subjective CC: Follow-up visit for atrial flutter and other problems. HPI: Remains in atrial flutter with variable conduction. No angina, SOB, edema. Experiencing some indigestion and belching. No N/V. Constipated. ROS: General- no fever, no chills Resp- no cough; no shortness of breath Cardiac- as noted above in HPI GI- as noted above in HPI - no hematuria . Objective Last 8 Hrs Date Time Temp Pulse Resp B/P (MAP) Pulse Ox O2 Delivery O2 Flow Rate FiO2 12/08/17 20:04 36.4 79 18 120/79 (93) 94 Room Air 12/08/17 20:00 Room Air 12/08/17 16:00 Room Air 12/08/17 15:22 36.5 126 16 119/75 (90) 95 Physical Exam: General- lying in bed; no distress Lungs- clear to auscultation; no respiratory distress Cardiovascular- irregular; no murmur or gallop appreciated; no JVD; no pretibial edema Abdomen- + bowel sounds, soft, nontender Extremities- no cyanosis; no calf tenderness Neuro- alert, oriented Skin- warm & dry . Assessment & Plan ATRIAL FLUTTER Continue metoprolol for rate control. Continue anticoagulation with apixaban. No apparent thrombi on YASMINE. Ablation recommended and anticipated tomorrow. REDUCED LVEF LVEF 35% per echo. 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 Lisinopril held due to initiation of metoprolol. ELEVATED TROPONINS Probable demand ischemia from tachycardia. HYPERTENSION Lisinopril held due to initiation of metoprolol. BP this morning 105/67. Follow and titrate Rx. DYSLIPIDEMIA Continue simvastatin. VTE PROPHYLAXIS Continue apixaban. Ambulate. DISPOSITION Expected discharge to home. Family Medicine follow-up with Dr. Brady. Cardiology follow-up. . Current Inpatient Medications: Current Inpatient Medications Medications (Trade) Dose Ordered Sig/Beverley Route Start Time Stop Time Status Last Admin Dose Admin Acetaminophen (Tylenol Tab) 650 mg Q4H PRN PO 12/05/17 12:00 01/04/18 11:59 Aspirin (Ecotrin Tab) 81 mg QAM PO 12/06/17 09:00 01/05/18 08:59 12/08/17 08:03 81 MG Calcium/Vitamin D (Caltrate Plus Tab) 2 tab DAILY PO 12/06/17 09:00 01/05/18 08:59 12/08/17 08:03 2 TAB Gabapentin (Neurontin Cap) 100 mg DAILY@1700 PO 12/05/17 17:00 12/11/17 17:01 12/08/17 17:18 100 MG Lisinopril (Zestril Tab) 5 mg DAILY PO 12/06/17 09:00 01/05/18 08:59 Future Hold 12/07/17 07:34 5 MG Meloxicam (Mobic Tab) 15 mg DAILY PO 12/06/17 09:00 01/05/18 08:59 12/08/17 08:02 15 MG Prednisone (PredniSONE TAB) 5 mg DAILY PO 12/06/17 09:00 01/05/18 08:59 12/08/17 08:02 5 MG Simvastatin (Zocor Tab) 20 mg HS PO 12/05/17 21:00 01/04/18 20:59 12/07/17 20:47 20 MG Tamsulosin HCl (Flomax Cap) 0.4 mg QPM PO 12/05/17 21:00 01/04/18 20:59 12/07/17 20:49 0.4 MG Pantoprazole Sodium (Protonix Tab) 40 mg DAILY PO 12/06/17 09:00 01/05/18 08:59 12/08/17 08:03 40 MG Metoprolol Tartrate (Lopressor Tab) 25 mg QID PO 12/05/17 21:00 01/04/18 20:59 12/08/17 17:18 25 MG Gabapentin (Neurontin Cap) 100 mg Q2D@1700 PO 12/13/17 17:00 12/19/17 23:59 Apixaban (Eliquis Tab) 5 mg Q12H PO 12/06/17 07:00 01/05/18 06:59 Future Hold 12/08/17 06:10 5 MG Al Hydrox/Mg Hydrox/Simethicone (Maalox Max Susp) 30 ml 1300 ONCE PO 12/09/17 13:00 12/09/17 13:01 12/08/17 13:08 30 ML Al Hydrox/Mg Hydrox/Simethicone (Maalox Max Susp) 30 ml Q6H PRN PO 12/08/17 13:00 01/07/18 12:59 Polyethylene (Miralax Powder Packet) 17 gm BID PRN PO 12/08/17 13:00 01/07/18 12:59 Polyethylene (Miralax Powder Packet) 17 gm TODAY@1600 PO 12/08/17 16:00 01/07/18 15:59 12/08/17 16:10 17 GM Bisacodyl (Dulcolax Tab) 5 mg DAILY PRN PO 12/08/17 13:00 01/07/18 12:59
[2017-12-08] MEDS: SIMVASTATIN 20 MG TAB PO SCH (21:28)
[2017-12-08] MEDS: TAMSULOSIN HCL 0.4 MG CAP PO SCH (21:28)
[2017-12-09] VITALS (14 sets, daily range): BP systolic 95–123; BP diastolic 60–75; PULSE 55–128; TEMP 36.4–36.5; O2SAT 95–100
--- NOTE | 2017-12-09 07:56 | Pre Sedation Assessment ---
Pre Sedation Assessment General Date of Sedation: Dec 09, 2017. Vital Signs Past 12 Hours Date Time Temp Pulse Resp B/P (MAP) Pulse Ox O2 Delivery O2 Flow Rate FiO2 12/09/17 07:30 Room Air 12/09/17 07:26 36.5 105 18 98/70 (79) 95 Room Air 12/09/17 04:49 95 Room Air 12/09/17 03:46 36.5 128 14 121/75 (90) 95 Room Air 12/08/17 23:45 96 Room Air 12/08/17 23:16 36.6 131 16 100/73 (82) 96 Room Air 12/08/17 21:29 83 138/85 (102) 12/08/17 20:04 36.4 79 18 120/79 (93) 94 Room Air 12/08/17 20:00 Room Air Review Lungs: lungs clear Pre-Sedation Airway Assessment Smoking Status: Former Smoker Hx of Sleep Apnea: No Short Thick Neck: No Thyro-mental Distance: > 3 Finger Breadths Oral Cavity: Dentures Mallampati Classification: Class III ASA Classification: Class III NPO Status Date of Last Intake of Fluids: Dec 08, 2017 Time of Last Intake of Fluids: 0000 Date of Last Intake of Solids: Dec 08, 2017 Time of Last Intake of Solids: 0000 Procedure Planning Contraindications for Sedation: None Current Medications Reviewed: Yes Notes The planned sedation has been discussed with the patient. Informed Consent was obtained. I have identified the patient, determined the appropriateness of sedation and have assessed the patient immediately prior to the procedure. All medicine(s) and interventions are by my order.
--- NOTE | 2017-12-09 07:57 | Anesthesiology Progress Note ---
Anesthesia Post Op Note Date & Time Dec 09, 2017 at 07:57 Vital Signs Pain Intensity: 0.0 Vital Signs Past 12 Hours Date Time Temp Pulse Resp B/P (MAP) Pulse Ox O2 Delivery O2 Flow Rate FiO2 12/09/17 07:30 Room Air 12/09/17 07:26 36.5 105 18 98/70 (79) 95 Room Air 12/09/17 04:49 95 Room Air 12/09/17 03:46 36.5 128 14 121/75 (90) 95 Room Air 12/08/17 23:45 96 Room Air 12/08/17 23:16 36.6 131 16 100/73 (82) 96 Room Air 12/08/17 21:29 83 138/85 (102) 12/08/17 20:04 36.4 79 18 120/79 (93) 94 Room Air 12/08/17 20:00 Room Air Notes Mental Status: alert / awake / arousable, participated in evaluation Pt Amnestic to Procedure: Yes Nausea / Vomiting: adequately controlled Pain: adequately controlled Airway Patency, RR, SpO2: stable & adequate BP & HR: stable & adequate Hydration State: stable & adequate Anesthetic Complications: no major complications apparent
[2017-12-09] MEDS ORDERED: MIDAZOLAM HCL 5 MG/ML 1 ML VIAL ONE ×2 (08:03→08:43)
[2017-12-09] MEDS ORDERED: FENTANYL CITRATE INJ 50 MCG/1 ML 2 ML VIAL ONE ×3 (08:03→09:09)
[2017-12-09] MEDS ORDERED: LIDOCAINE HCL 1% 20 ML VIAL ONE (08:25)
[2017-12-09] MEDS ORDERED: HEPARIN SOD (PORCINE) 1000 UNIT/ML 10 ML VIAL ONE (08:39)
--- NOTE | 2017-12-09 09:40 | [facility] Operative Report ---
Operative Report Date of Service Dec 09, 2017. Operative Report Procedure performed: Ablation of typical RA flutter, three-dimensional electro anatomical mapping, arrhythmia induction, complete electrophysiologic testing including pacing from the left atrium via the coronary sinus, ultrasound-guided vascular access Staff Logging Engineer: Kimani Aguillon Indication: The patient is a 77-year-old gentleman who presented with atrial flutter and rapid ventricular response. He was also noted to have an element of LV dysfunction. Based on the appearance of the rhythm on his EKG was felt to be a good candidate for catheter based therapy as primary treatment of suspected typical right atrial flutter. Patient underwent transesophageal echocardiogram several days prior which did not demonstrate any thrombus in the left atrial appendage. He has been appropriately anticoagulated since that time. Procedure in detail: The patient was informed of the risks benefits and alternatives to the intended procedure. He understood such which proceed. He was taken to the electrophysiology suite in a fasting state. Conscious sedation was administered per protocol and the patient was monitored electrocardiographically throughout today's procedure. The right internal jugular area and right femoral areas were prepped and draped in usual sterile fashion. These areas were anesthetized using subcutaneous administration of xylocaine and Marcaine solution. The right internal jugular vein was accessed using modified Selinger technique under ultrasound guidance and a 6 Jamaican venous sheath was placed at the site over guidewire. The right femoral vein was accessed twice using modified Selinger technique. Sheaths were placed over guidewires at this site. The sheaths were used to facilitate passage of the EP catheters to the respective chambers under fluoroscopic guidance. This included right ventricular, coronary sinus and roving right atrial catheter. The patient's baseline tachycardia was characterized. Electro anatomical mapping was performed. When the mechanism of the arrhythmia was known a radiofrequency ablation catheter was advanced to the caval tricuspid isthmus and ablation was performed in a linear fashion. This resulted in termination of the arrhythmia. Patient's baseline conduction system was subsequently characterize. Attempted arrhythmia induction were also performed. Subsequent to the conclusion of the procedure repeat electro anatomical mapping was performed in order to confirm block through the caval tricuspid isthmus. At the conclusion of the procedure catheters and sheaths were removed. Hemostasis was achieved at the access sites using manual pressure. The patient tolerated procedure well there no immediate complications. Findings: Baseline electro anatomical mapping revealed a typical right atrial flutter. Nearly the entire cycle length of the arrhythmia was accounted for in the right atrium. Based on the mapping it appeared to be isthmus dependent. Ablation: A 7 Jamaican 3.5 millimeter open irrigated radiofrequency ablation catheter was advanced to the caval tricuspid isthmus. Linear lesions were placed in a power limited mode until the tachycardia terminated. Post ablation intervals: Cycle length in the atrium 1122 milliseconds Cycle length in the ventricle 1148 milliseconds AH interval 50 milliseconds HV interval 36 milliseconds UT interval 164 milliseconds QRS duration 104 milliseconds QT interval 364 milliseconds QTc 340 milliseconds Av Wenckebach occurred at 370 milliseconds VA Wenckebach occurred at 430 milliseconds. It should be noted that retrograde conduction was concentric and decremental The AV node effective refractory period was 300 milliseconds. There is no distinct jump in AH interval. Retrograde refractory period of the AV node was 370 milliseconds Arrhythmia induction: Burst atrial pacing from both the lateral and medial portions of the caval tricuspid isthmus for performed down to cycle length of 240 milliseconds. Conclusions: Successful creation of bidirectional block through the caval tricuspid isthmus rendering typical isthmus dependent right atrial flutter noninducible Normal baseline conduction intervals No evidence of dual AV bia physiology or accessory pathway conduction I attest to the content of the Intraoperative Record and any orders documented therein. Any exceptions are noted below.
[2017-12-09] MEDS ORDERED: OXYCODONE HCL IR 5 MG TAB (IMMEDIATE RELEASE) PO PRN (09:45)
[2017-12-09] MEDS ORDERED: ACETAMINOPHEN 325 MG TAB PO PRN (09:45)
[2017-12-09] MEDS: METOPROLOL TARTRATE 25 MG TAB PO SCH ×2 (10:36→13:50)
[2017-12-09] MEDS: PANTOprazole SOD 40 MG TAB PO SCH (10:37)
[2017-12-09] MEDS: ASPIRIN 81 MG ECTAB PO SCH (10:37)
[2017-12-09] MEDS: MELOXICAM 7.5 MG TAB PO SCH (10:38)
[2017-12-09] MEDS: CALCIUM 600MG + VIT D 400 IU TAB PO SCH (11:22)
[2017-12-09] MEDS ORDERED: ALUMINUM/MAGNESIUM/SIMETH (MAALOX MAX) 30 ML UDC PO ONE (13:00)
--- NOTE | 2017-12-09 15:13 | Cardiology Follow-Up ---
Subjective General Date of Service: Dec 09, 2017. Chief Complaint: follow up exertional shortness of breath Pt evaluation today including: conversation w/ patient, conversation w/ family , physical exam, chart review, lab review, review of studies, review of inpatient medication list History of Present Illness The patient is a 77 year old male seen in follow up. Successful flutter ablation earlier today. No complications. Reports back pain. Denies groin discomfort. Allergies Coded Allergies: No Known Allergies (Unverified , 12/05/17) Social History Smoking Status: Former Smoker Hx Alcohol Use - Type And Amou: No Hx Substance Use - Type And Am: No Review of Systems Respiratory: No cough, No sputum, No wheezing, No shortness of breath, No dyspnea at rest, No hemoptysis Cardiac: No chest pain, No orthopnea, No PND, No edema, No claudication, No palpitations Physical Exam Vital Signs Last Vital Signs Documentation Date Time Temp Pulse Resp B/P (MAP) Pulse Ox O2 Delivery O2 Flow Rate FiO2 12/09/17 12:00 Room Air 12/09/17 11:45 65 105/62 (76) 99 12/09/17 11:30 16 12/09/17 09:58 2 12/09/17 07:26 36.5 Physical Exam Head: normocephalic Neck: supple, trachea midline Lungs: Auscultation: no wheezing, no rales/crackles, no rhonchi Cardiovascular: Heart Auscultation: RRR, no murmurs, no rubs, tachycardia Abdomen: Inspection & Palpation: soft, non-distended Musculoskeletal: normal Extremities: no cyanosis, no edema, pertinent finding (right groin ecchymosis) Neurologic: Gait & Station: pertinent finding Assessment and Plan Assessment and Plan Impression: 1. Atrial flutter with RVR, with resultant tachycardia induced CM, LVEF moderately reduced 35-40% - patient compensated - No LA appendage thrombus on YASMINE - s/p ablation 12/09/17 2. History of spondyloarthropathy on chronic prednisone and meloxicam 3. HTN - controlled with borderline asymptomatic hypotension 4. Dyslipidemia Plan: Reduce metoprolol to 25mg BID Restart lisinopril 5mg daily. Patient may receive evening dose of eliquis tonite. Discussed with EP - patient may be discharged this afternoon if no complications.
[2017-12-09] MEDS: GABAPENTIN 100 MG CAP PO SCH (17:25)
--- NOTE | 2017-12-09 17:42 | Progress Note ---
Medicine Progress Note Date & Time of Visit: Dec 09, 2017 at 17:42 . Subjective Ablation went well. No chest pain, palpitations, SOB. Ready for DC. . Objective Last 8 Hrs Date Time Temp Pulse Resp B/P (MAP) Pulse Ox O2 Delivery O2 Flow Rate FiO2 12/09/17 16:00 Room Air 12/09/17 16:00 36.4 74 16 117/68 (84) 97 Room Air 12/09/17 12:00 Room Air 12/09/17 11:45 65 105/62 (76) 99 Room Air 12/09/17 11:30 64 16 99/62 (74) 100 Room Air 12/09/17 11:15 65 12 110/68 (82) 97 Room Air 12/09/17 11:00 66 16 112/64 (80) 99 Room Air 12/09/17 10:45 59 12 97/60 (72) 98 Room Air 12/09/17 10:45 Room Air 12/09/17 10:30 55 12 95/62 (73) 100 Room Air 12/09/17 10:11 72 16 121/64 (83) 97 Room Air 12/09/17 10:03 73 16 105/58 (74) 97 Room Air 12/09/17 09:58 66 12 95/60 (72) 97 Mask 2 12/09/17 09:53 53 12 111/73 (86) 95 Mask 10 12/09/17 09:43 75 12 105/70 (82) 95 Mask 10 Physical Exam: General- no distress Neck- right neck bandaged Lungs- clear to auscultation; no respiratory distress Cardiovascular- RRR; no murmur or gallop appreciated; no JVD; no pretibial edema Abdomen- + bowel sounds, soft, nontender Extremities- no cyanosis; no calf tenderness Neuro- alert, oriented Skin- warm & dry . Laboratory Results: Date/Time Source Procedure Growth Status 12/09/17 10:30 Nasal MRSA DNA Surveillance Screen - Final Specimen Negative for MRSA by DNA Probe Complete Assessment & Plan ATRIAL FLUTTER Continue metoprolol for rate control. Continue anticoagulation with apixaban. No apparent thrombi on YASMINE. Ablation successfully performed by Dr. Aguillon. Discharged on metoprolol and apixaban. REDUCED LVEF LVEF 35% per echo. 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 Lisinopril held due to initiation of metoprolol, restarted at discharge. Further management per Cardiology. ELEVATED TROPONINS Probable demand ischemia from tachycardia. HYPERTENSION Lisinopril held due to initiation of metoprolol, restarted at discharge. Follow and titrate Rx. DYSLIPIDEMIA Continue simvastatin. VTE PROPHYLAXIS Received apixaban. Ambulating. DISPOSITION Discharge to home. Family Medicine follow-up with Dr. Brady. Follow-up with Cardiology. . Current Inpatient Medications: Current Inpatient Medications Medications (Trade) Dose Ordered Sig/Beverley Route Start Time Stop Time Status Last Admin Dose Admin Acetaminophen (Tylenol Tab) 650 mg Q4H PRN PO 12/05/17 12:00 01/04/18 11:59 12/09/17 11:22 650 MG Aspirin (Ecotrin Tab) 81 mg QAM PO 12/06/17 09:00 01/05/18 08:59 12/09/17 10:37 81 MG Calcium/Vitamin D (Caltrate Plus Tab) 2 tab DAILY PO 12/06/17 09:00 01/05/18 08:59 12/09/17 11:22 2 TAB Gabapentin (Neurontin Cap) 100 mg DAILY@1700 PO 12/05/17 17:00 12/11/17 17:01 12/08/17 17:18 100 MG Lisinopril (Zestril Tab) 5 mg DAILY PO 12/06/17 09:00 01/05/18 08:59 Future hold 12/07/17 07:34 5 MG Meloxicam (Mobic Tab) 15 mg DAILY PO 12/06/17 09:00 01/05/18 08:59 12/09/17 10:38 15 MG Prednisone (PredniSONE TAB) 5 mg DAILY PO 12/06/17 09:00 01/05/18 08:59 12/09/17 10:37 5 MG Simvastatin (Zocor Tab) 20 mg HS PO 12/05/17 21:00 01/04/18 20:59 12/08/17 21:28 20 MG Tamsulosin HCl (Flomax Cap) 0.4 mg QPM PO 12/05/17 21:00 01/04/18 20:59 12/08/17 21:28 0.4 MG Pantoprazole Sodium (Protonix Tab) 40 mg DAILY PO 12/06/17 09:00 01/05/18 08:59 12/09/17 10:37 40 MG Gabapentin (Neurontin Cap) 100 mg Q2D@1700 PO 12/13/17 17:00 12/19/17 23:59 Apixaban (Eliquis Tab) 5 mg Q12H PO 12/06/17 07:00 01/05/18 06:59 Future Hold 12/08/17 06:10 5 MG Al Hydrox/Mg Hydrox/Simethicone (Maalox Max Susp) 30 ml Q6H PRN PO 12/08/17 13:00 01/07/18 12:59 Polyethylene (Miralax Powder Packet) 17 gm BID PRN PO 12/08/17 13:00 01/07/18 12:59 Bisacodyl (Dulcolax Tab) 5 mg DAILY PRN PO 12/08/17 13:00 01/07/18 12:59 Oxycodone HCl (Roxicodone Immediate Rel Tab) 5 mg Q4 PRN PO 12/09/17 09:45 12/23/17 09:44 Metoprolol Tartrate (Lopressor Tab) 25 mg BID PO 12/09/17 21:00 01/04/18 20:59
[2017-12-09] MEDS ORDERED: LPR25 PO (17:49)
[2017-12-09] MEDS ORDERED: APIX1TAB3 PO (17:49)
--- NOTE | 2017-12-09 17:52 | Discharge Instructions ---
Discharge Instructions Date of Service Dec 09, 2017. Admission Reason for Admission: rapid heart beat . Discharge Discharge Diagnosis / Problem: atrial flutter Discharge Goals Goal(s): Improve function, Improve disease control Activity Recommendations Activity Limitations: resume your previous activity . Instructions / Follow-Up Instructions / Follow-Up APPOINTMENTS: FAMILY MEDICINE 12/12/2017 1:00 PM Nikita Brady MD CARDIOLOGY To be arranged. OTHER INSTRUCTIONS: Seek medical attention if you have: * temperature above 101 * chest pain, palpitations, lightheadedness, or trouble breathing * abdominal pain, nausea, vomiting * diarrhea, dark stools or bloody stools * any unanswered questions or concerns Call 911 if symptoms are severe. Call if you have any questions or problems. My cell # is [phone]. You can also reach a [facility] hospitalist on duty at [facility] 24 hours a day by calling [phone]. Please take good care of yourself. Woody Trejo . Current Hospital Diet Patient's current hospital diet: AHA Diet (Heart Healthy) Discharge Diet Recommended Diet: AHA Diet (Heart Healthy) Pending Studies Studies pending at discharge: no Laboratory Results Hemoglobin A1c Test 12/05/17 09:50 Range/Units Estimated Average Glucose 103 mg/dl Hemoglobin A1c 5.2 4.5-5.6 % Lipid Panel Test 12/06/17 07:10 Range/Units Triglycerides Level 191 H 0-150 mg/dl Cholesterol Level 150 0-200 mg/dl HDL Cholesterol 34 mg/dl Cholesterol/HDL Ratio 4.4 LDL Cholesterol, Calculated 78 mg/dl Medical Emergencies . Who to Call and When: Medical Emergencies: If at any time you feel your situation is an emergency, please call 911 immediately. . Non-Emergent Contact Non-Emergency issues call your: Primary Care Provider, Printing Table Worker, Hospital Doctor . . "Provider Documentation" section prepared by Woody Trejo. . VTE Core Measure Inpt VTE Proph given/why not?: Other Anticoagulation (Eliquis)
[2017-12-09] MEDS ORDERED: METOPROLOL TARTRATE 25 MG TAB PO SCH (21:00)
--- NOTE | 2017-12-11 09:42 | Discharge Summary ---
Discharge Summary Date of Service Dec 11, 2017. 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 Secondary Diagnoses/Problems: Medical Problems: (1) BPH (benign prostatic hyperplasia) Status: Chronic (2) Dyslipidemia Status: Chronic (3) GERD (gastroesophageal reflux disease) Status: Chronic (4) HLA-B27 spondyloarthropathy Status: Chronic (5) HTN (hypertension) Status: Chronic (6) Lichen planus Status: Chronic (7) Osteoarthritis Status: Chronic (8) Osteoporosis Status: Chronic Surgical Problems: (1) H/O hernia repair Status: Chronic (2) History of cataract surgery Status: Chronic . Procedures: cardiac monitoring CTA chest transthoracic echo transesophageal echo EP testing / ablation of typical RA flutter . Medication Reconciliation New Medications: Apixaban (Eliquis) 5 Mg Tab 5 MG PO BID, #60 TAB 5 Refills Metoprolol Tartrate (Lopressor) 25 Mg Tab 25 MG PO BID, #60 TAB 5 Refills Continued Medications: Calcium/Vitamin D (Os-Don 500 Plus D) Tab 2 TAB PO DAILY, TAB Esomeprazole Magnesium (Nexium) 40 Mg Capcr 40 MG PO DAILY, CAP Gabapentin (Neurontin) 100 Mg Cap 100 MG PO UD, CAP take one tablet daily x 7 days, then one tablet every other day x 7 days, then stop Lisinopril (Prinivil) 5 Mg Tab 5 MG PO DAILY, TAB Meloxicam (Mobic) 15 Mg Tab 15 MG PO DAILY, TAB Prednisone (Prednisone) 5 Mg Tab 5 MG PO DAILY, TAB Risedronate Sod (Actonel) 35 Mg Tab 1 TAB PO WK for 28 Days, #4 TAB 5 Refills Simvastatin (Zocor) 20 Mg Tab 1 TAB PO HS for 30 Days, #30 TAB 5 Refills Tamsulosin Hcl (Flomax) 0.4 Mg Cap 0.4 MG PO QPM, CAP Admission Information HPI (per Admitting provider): 77 year old male who was referred to the ED by his PCP for evaluation of tachycardia, shortness of breath, and chest pain. Patient reports he was diagnosed with shingles and post herpetic neuralgia about 2 months ago. He was started on gabapentin for the PHN. He feels like his symptoms started shortly after starting the medication. He reports shortness of breath and a feeling chest fullness with exertion. He reports he typically walks every day however that has been limited due to his symptoms. He also reports these exertional symptoms with climbing stairs. He has noticed increased indigestion. He denies palpitations or feelings of his heart racing. No lightheadedness, dizziness, diaphoresis, or syncopal events. He denies abdominal pain, nausea, vomiting, or diarrhea. No fevers or chills. He denies urinary symptoms. Patient went to his PCP today for the aforementioned complaints. He was found to be tachycardic in the 120s. He was sent to the ED for further evaluation. In the ED, patient's EKG shows sinus tachycardia in the 130s. He was given metoprolol 5mg IV without much improvement in heart rate. His troponin is mildly elevated at 0.122. Remainder of his labs are unremarkable. CTA is negative for PE. . Physical Exam (per Admitting): General Appearance: WD/WN, no apparent distress Head: normocephalic, atraumatic Eyes: normal inspection, EOMI, sclerae normal ENT: hearing grossly normal, + pertinent finding (mucous membranes moist) Neck: supple, no JVD, no carotid bruits Respiratory/Chest: lungs clear, normal breath sounds, no respiratory distress Cardiovascular: no edema, normal peripheral pulses, + tachycardia (regular rhythm) Abdomen/GI: normal bowel sounds, non tender, soft, no organomegaly Extremities/Musculoskelatal: normal inspection, no calf tenderness, normal capillary refill Neurologic/Psych: no motor/sensory deficits, alert, normal mood/affect, oriented x 3 Skin: normal color, warm/dry Hospital Course ATRIAL FLUTTER Presented to ED with chest pain, SOB, tachycardia. Found to be in atrial flutter. Cardiology consulted. Anticoagulated with apixaban. Started on metoprolol for rate control. TTE showed LVEF 35%. No apparent thrombi on YASMINE. Ablation successfully performed by Dr. Aguillon on 12/09/17. Discharged on metoprolol and apixaban. REDUCED LVEF LVEF 35% per echo. 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 Lisinopril held due to initiation of metoprolol, restarted at discharge. Further management per Cardiology. ELEVATED TROPONINS Serum troponins slightly elevated. Probable demand ischemia from tachycardia. HYPERTENSION Lisinopril held due to initiation of metoprolol, restarted at discharge. Follow and titrate Rx. DYSLIPIDEMIA Continue simvastatin. VTE PROPHYLAXIS Received apixaban. Ambulating. DISPOSITION Discharged to home. Family Medicine follow-up with Dr. Brady. Follow-up with Cardiology. . Total time spent on discharge = 40. This includes examination of the patient, discharge planning, medication reconciliation, and communication with other providers. . Discharge Instructions Date of Service Dec 09, 2017. Admission Reason for Admission: rapid heart beat . Discharge Discharge Diagnosis / Problem: atrial flutter Discharge Goals Goal(s): Improve function, Improve disease control Activity Recommendations Activity Limitations: resume your previous activity . Instructions / Follow-Up Instructions / Follow-Up APPOINTMENTS: FAMILY MEDICINE 12/12/2017 1:00 PM Nikita Brady MD CARDIOLOGY To be arranged. OTHER INSTRUCTIONS: Seek medical attention if you have: * temperature above 101 * chest pain, palpitations, lightheadedness, or trouble breathing * abdominal pain, nausea, vomiting * diarrhea, dark stools or bloody stools * any unanswered questions or concerns Call 911 if symptoms are severe. Call if you have any questions or problems. My cell # is [phone]. You can also reach a [facility] hospitalist on duty at [facility] 24 hours a day by calling [phone]. Please take good care of yourself. Woody Trejo . Current Hospital Diet Patient's current hospital diet: AHA Diet (Heart Healthy) Discharge Diet Recommended Diet: AHA Diet (Heart Healthy) Pending Studies Studies pending at discharge: no Laboratory Results Hemoglobin A1c Test 12/05/17 09:50 Range/Units Estimated Average Glucose 103 mg/dl Hemoglobin A1c 5.2 4.5-5.6 % Lipid Panel Test 12/06/17 07:10 Range/Units Triglycerides Level 191 H 0-150 mg/dl Cholesterol Level 150 0-200 mg/dl HDL Cholesterol 34 mg/dl Cholesterol/HDL Ratio 4.4 LDL Cholesterol, Calculated 78 mg/dl Medical Emergencies . Who to Call and When: Medical Emergencies: If at any time you feel your situation is an emergency, please call 911 immediately. . Non-Emergent Contact Non-Emergency issues call your: Primary Care Provider, Optical Systems Engineer, Hospital Doctor . . "Provider Documentation" section prepared by Woody Trejo. . VTE Core Measure Inpt VTE Proph given/why not?: Other Anticoagulation (Eliquis) .
[2017-12-13] MEDS ORDERED: GABAPENTIN 100 MG CAP PO SCH (17:00)
== END 2017-12-09 18:39 | disposition home or self-care (01) | DRG 274 ==
LOC: C.EDB 08:58 → C.MED 11:55 → ENRESERV 12:10 → C.MSICU 12-09 10:27
PROVIDERS: ADMIT Hospitalist; ATTEND Hospitalist
PROC: 4A0234Z Measurement of Cardiac Electrical Activity, Percutaneous Approach (ICD-10-PCS; 2017-12-06)
PROC: 025J3ZZ Destruction of Tricuspid Valve, Percutaneous Approach (ICD-10-PCS; principal; 2017-12-09 06:55)
DX: I48.92 Unspecified atrial flutter (principal); I24.8 Other forms of acute ischemic heart disease; B02.29 Other postherpetic nervous system involvement; R00.0 Tachycardia, unspecified; M81.0 Age-related osteoporosis without current pathological fracture; I10 Essential (primary) hypertension; E78.5 Hyperlipidemia, unspecified; N40.0 Benign prostatic hyperplasia without lower urinary tract symptoms; K21.9 Gastro-esophageal reflux disease without esophagitis; Z82.49 Family history of ischemic heart disease and other diseases of the circulatory system

== ENCOUNTER 2018-05-10 22:38 | Observation (INO) | payer OTHER ==
[~2018-05-10] VITALS: Ht 190.5 cm; Wt 98.0 kg
[~2018-05-10 22:38] MED LIST changes: +ACT/35 PO; +APIX1TAB3 PO; -BENADRYL; +CALC500C70 PO; +LISI-729 PO; +MELO-84 PO; +METO25TA4 PO; -NXM/40; +NXM/40 PO; +PRED-301 PO; +SIMV20TA5 PO; +TAMS0.4C38 PO; +TRMCR130WC; +[UNRECOGNIZED DRUG - CODE]
--- NOTE | 2018-05-10 23:31 | EMERGENCY ROOM VISIT NOTE ---
History Report prepared by Abdiaziz: Anson Michael Under the Supervision of: Dr. Zoraida Diaz D.O. First contact with patient: 23:00 Chief Complaint: ILLNESS Stated Complaint: SHOULDER PAIN, LEGS CRAMPING, HAD QUAD BI-PASS History of Present Illness The patient is a 78 year old male who presents to the Emergency Room with complaints of intermittent bilateral shoulder pain that began today. Patient states the pain started in his left shoulder and has since radiated to his right shoulder. He states his shoulder pain is relieved with heat and sitting up. Patient adds that he has been experiencing subjective chills, fevers, and fatigue throughout the day. He states that when he was at home this afternoon he "passed out" for about "30-40" minutes after sitting down. He states that after the episode he tried to stand up and began experiencing cramping and swelling in his legs. Patient states that he was in [place], [place] 3-4 weeks ago where he was treated for Pericarditis for 3 days. He denies them needing to drain the fluid around his heart. He states he was discharged on Colchicine, which he is still taking. He states that his symptoms today feel similar to his history of Pericarditis. He adds he has a history of a CABG in January at [facility] and an ablation. Patient adds he has a history of bilateral ankle swelling, which he takes a water pill for. Patient states that his swelling has been stable recently. Patient adds that he has a history of arthritis in his back, which he takes Gabapentin for, and a pinched nerve. He adds that he has a history of atrial fibrillation. Patient states that he takes a baby aspirin daily. 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 Tamayo. Patient denies nausea, vomiting, cough, SOB, and cold symptoms. Source of History: patient Onset: Today Position: head, shoulder (bilateral) Timing: intermittent Modifying Factors (Relieving): heat, other (Sitting up) Associated Symptoms: + fevers, + chills, + fatigue, No cough, No chest pain , No SOB, No nausea, No vomiting Review of Systems See HPI for pertinent positives & negatives. A total of 10 systems reviewed and were otherwise negative. Past Medical & Surgical Medical Problems: (1) BPH (benign prostatic hyperplasia) (2) Dyslipidemia (3) GERD (gastroesophageal reflux disease) (4) HLA-B27 spondyloarthropathy (5) HTN (hypertension) (6) Lichen planus (7) Osteoarthritis (8) Osteoporosis Surgical Problems: (1) H/O hernia repair (2) History of cataract surgery Family History FH: cirrhosis MOTHER FH: lung cancer FATHER Social History Smoking Status: Never Smoker Current/Historical Medications Scheduled Aspirin (Aspirin), 81 MG PO QAM Atorvastatin (Lipitor), 20 MG PO DAILY Calcium/Vitamin D (Os-Don 500 Plus D), 2 TAB PO DAILY Colchicine (Colcrys), 0.6 MG PO BID Esomeprazole Magnesium (Nexium), 40 MG PO DAILY Furosemide (Lasix), 20 MG PO DAILY Gabapentin (Neurontin), 300 MG PO BID Lisinopril (Prinivil), 5 MG PO DAILY Meloxicam (Mobic), 15 MG PO DAILY Metoprolol Succinate (Toprol Xl), 1 TAB PO DAILY Prednisone Tab (Prednisone), 10 MG PO UD Risedronate Sod (Actonel), 1 TAB PO WK Tamsulosin Hcl (Flomax), 0.4 MG PO QPM Triamcinolone Acet (Aristocort 0.1%), DIRECTED Allergies Coded Allergies: No Known Allergies (Unverified , 05/11/18) Physical Exam Vital Signs Date Time Temp Pulse Resp B/P (MAP) Pulse Ox O2 Delivery O2 Flow Rate FiO2 05/11/18 02:36 63 18 94 Room Air 05/11/18 02:31 129/67 05/11/18 02:12 36.7 05/11/18 02:03 67 05/11/18 02:01 128/74 05/11/18 01:53 62 16 94 Room Air 05/11/18 01:31 129/72 05/11/18 01:23 65 18 93 Room Air 05/11/18 01:18 69 18 94 Room Air 05/11/18 01:01 122/59 05/11/18 00:31 136/80 05/11/18 00:18 69 20 94 Room Air 05/11/18 00:13 69 23 93 Room Air 05/11/18 00:01 143/78 05/11/18 00:00 37.0 05/10/18 23:13 78 25 93 Room Air 05/10/18 23:08 78 22 95 Room Air 05/10/18 23:01 37.8 05/10/18 23:01 145/65 05/10/18 22:59 77 05/10/18 22:53 150/68 05/10/18 22:50 96 Room Air 05/10/18 22:41 37.1 81 18 141/72 93 Room Air Physical Exam GENERAL: alert, well appearing, well nourished, no distress, non-toxic EYE EXAM: normal conjunctiva, PERRL and EOM's grossly intact OROPHARYNX: no exudate, no erythema, lips, buccal mucosa, and tongue normal and mucous membranes are moist NECK: supple, no nuchal rigidity, no adenopathy, non-tender LUNGS: Diminished breath sounds. Normal chest wall mechanics. No wheezes, rhonchi, or rales. HEART: Diminished heart sounds. No murmurs, rubs, gallops, S1 normal and S2 normal CHEST: Well healed vertical midline incision over the chest consistent with recent CABG. ABDOMEN: abdomen soft, non-tender, normo-active bowel sounds, no masses, no rebound or guarding. BACK: Back is symmetrical on inspection and there is no deformity, no midline tenderness, no CVA tenderness. SKIN: Warm to touch otherwise no rashes and no bruising UPPER EXTREMITIES: Upper extremities are grossly normal. LOWER EXTREMITIES: No pitting edema. NEURO EXAM: No ataxia. Steady gait. Normal sensorium, cranial nerves II-XII grossly intact, normal speech, no gross weakness of arms, no gross weakness of legs. Medical Decision & Procedures ER Provider Diagnostic Interpretation: Radiology results have been interpreted and reviewed by me. CHEST X-RAY: X-Ray shows poor patient positioning, rotated, mild cardiomegaly, sternotomy wires noted, no pleural effusion, and a questionable evolving infiltrate in the left lower lobe. Radiology results have been interpreted by the radiologist and reviewed by me. CTA CHEST: Normal caliber thoracic aorta with atherosclerotic disease. Coronary artery calcifications/stent. Sternotomy wires and mediastinal clips. Small pericardial effusion. Bilateral lower lobe atelectasis/infiltrates. Trace bilateral pleural effusions. No definite central PE. More peripheral branches are suboptimally evaluated due to respiratory motion. Radiologist: Oleg Regan MD Laboratory Results 05/10/18 23:34 Red Blood Count 4.31, Mean Corpuscular Volume 87.7, Mean Corpuscular Hemoglobin 29.5, Mean Corpuscular Hemoglobin Concent 33.6, Mean Platelet Volume 10.1, Neutrophils (%) (Auto) 75.4, Lymphocytes (%) (Auto) 13.7, Monocytes (%) (Auto) 9.8, Eosinophils (%) (Auto) 0.5, Basophils (%) (Auto) 0.2, Neutrophils # (Auto) 8.21, Lymphocytes # (Auto) 1.49, Monocytes # (Auto) 1.06, Eosinophils # (Auto) 0.05, Basophils # (Auto) 0.02 05/10/18 23:34 Test 05/10/18 23:34 05/10/18 23:52 White Blood Count 10.87 K/uL (4.8-10.8) Red Blood Count 4.31 M/uL (4.7-6.1) Hemoglobin 12.7 g/dL (14.0-18.0) Hematocrit 37.8 % (42-52) Mean Corpuscular Volume 87.7 fL (80-100) Mean Corpuscular Hemoglobin 29.5 pg (25-34) Mean Corpuscular Hemoglobin Concent 33.6 g/dl (32-36) Platelet Count 292 K/uL (130-400) Mean Platelet Volume 10.1 fL (7.4-10.4) Neutrophils (%) (Auto) 75.4 % Lymphocytes (%) (Auto) 13.7 % Monocytes (%) (Auto) 9.8 % Eosinophils (%) (Auto) 0.5 % Basophils (%) (Auto) 0.2 % Neutrophils # (Auto) 8.21 K/uL (1.4-6.5) Lymphocytes # (Auto) 1.49 K/uL (1.2-3.4) Monocytes # (Auto) 1.06 K/uL (0.11-0.59) Eosinophils # (Auto) 0.05 K/uL (0-0.5) Basophils # (Auto) 0.02 K/uL (0-0.2) RDW Standard Deviation 47.0 fL (36.4-46.3) RDW Coefficient of Variation 14.6 % (11.5-14.5) Immature Granulocyte % (Auto) 0.4 % Immature Granulocyte # (Auto) 0.04 K/uL (0.00-0.02) Erythrocyte Sedimentation Rate 52 mm/hr (0-14) Prothrombin Time 10.4 SECONDS (9.0-12.0) Prothromb Time International Ratio 1.0 (0.9-1.1) D-Dimer 620 ug/L FEU (0-500) Urine Color YELLOW Urine Appearance CLEAR (CLEAR) Urine pH 6.5 (4.5-7.5) Urine Specific [place] 1.016 (1.000-1.030) Urine Protein NEG (NEG) Urine Glucose (UA) NEG (NEG) Urine Ketones NEG (NEG) Urine Occult Blood NEG (NEG) Urine Nitrite NEG (NEG) Urine Bilirubin NEG (NEG) Urine Urobilinogen NEG (NEG) Urine Leukocyte Esterase NEG (NEG) Anion Gap 8.0 mmol/L (3-11) Est Creatinine Clear Calc Drug Dose 62.7 ml/min Estimated GFR () 68.6 Estimated GFR (Non- 59.2 BUN/Creatinine Ratio 23.9 (10-20) Calcium Level 8.6 mg/dl (8.5-10.1) Magnesium Level 2.0 mg/dl (1.8-2.4) Total Bilirubin 0.5 mg/dl (0.2-1) Aspartate Amino Transf (AST/SGOT) 13 U/L (15-37) Alanine Aminotransferase (ALT/SGPT) 31 U/L (12-78) Alkaline Phosphatase 74 U/L (45-117) Troponin I < 0.015 ng/ml (0-0.045) Pro-B-Type Natriuretic Peptide 492 pg/ml (0-1800) Total Protein 7.9 gm/dl (6.4-8.2) Albumin 3.5 gm/dl (3.4-5.0) Globulin 4.4 gm/dl (2.5-4.0) Albumin/Globulin Ratio 0.8 (0.9-2) Lipase 174 U/L (73-393) Thyroid Stimulating Hormone (TSH) 1.150 uIu/ml (0.300-4.500) Lyme Disease IgG Antibody NEG (NEG) Lyme Disease IgM Antibody NEG (NEG) Bedside Lactic Acid Venous 0.96 mmol/L (0.90-1.70) Laboratory results per my review. Medications Administered Medications (Trade) Dose Ordered Sig/Beverley Route Start Time Stop Time Status Last Admin Dose Admin Acetaminophen (Tylenol Tab) 1,000 mg NOW STAT PO 05/10/18 23:34 05/10/18 23:35 DC 05/10/18 23:43 1,000 MG Sodium Chloride 1,000 ml @ 125 mls/hr Q8H STAT IV 05/10/18 23:34 05/11/18 03:53 DC 05/10/18 23:43 125 MLS/HR ECG Per My Interpretation Indication: chest pain Rate (beats per minute): 78 Rhythm: normal sinus Findings: RBBB (Incomplete), T-wave inversion (AVL), no acute ischemic change, other (Normal axis/intervals) ED Course 2302: The patient was evaluated in room B4B. A complete history and physical exam was performed. 2332: A bedside echo was performed. Echo showed no obvious pericardial effusion and slightly globally diminished EF. 2334: Sodium Chloride 1000 ml @ 125 mls/hr IV and Tylenol Tab 1000mg PO 0030: Ioversol 100ml IV 0205: I reevaluated the patient and updated him on his results. He states now feels very sweaty like he is breaking his fever. He adds he still has mild shoulder pain. 0243: Upon reevaluation, the patient will be further evaluated. I discussed the findings and the treatment plan with the patient. He expresses agreement and understanding. I spoke with Dr. Dubose of the [facility]. He will be evaluated for further management. Medical Decision Prior records/ancillary studies reviewed. Triage Nursing notes reviewed. The patient's history was concerning for chest pain. Differential diagnosis: Etiologies such as cardiac ischemia, aortic dissection, pulmonary embolism, pneumonia, pneumothorax, musculoskeletal, infections, pericarditis, myocarditis , esophageal rupture, gastrointestinal, as well as others were entertained. Concern given evolution of symptoms in patient with recent significant cardiac history, as well as recent episode of pericarditis. 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 Patient is still taking his colchicine, however his symptoms have returned with subjective fevers and chills and worsening shoulder pain. Patient's initial labs and imaging reassuring. CT angios the chest did not show any other acute pathology. Bedside echo did not reveal pericardial effusion or evidence of tamponade. Case discussed with hospitalist for additional evaluation and management including possible cardiology input and echo. I have a lower suspicion for acute graft failure, ACS, dysrhythmia, no evidence of tamponade. I feel it is less likely he is developed a bacterial pericarditis. No other recent interventions or procedures. Patient here well- appearing, hemodynamically stable. I do not suspect bacteremia/sepsis. Medication Reconcilliation Current Medication List: was personally reviewed by me Blood Pressure Screening Patient's blood pressure: Normal blood pressure Blood pressure disposition: Did not require urgent referral Consults Time Called: [phone] Consulting Physician: Dr. Gracy Jeffrey Hospitalist Returned Call: [phone] I reviewed the patient's case with Dr. Dubose. He will evaluate the patient for further management. Impression Primary Impression: Chest pain Additional Impressions: Shoulder pain Fever Scribe Attestation The scribe's documentation has been prepared under my direction and personally reviewed by me in its entirety. I confirm that the note above accurately reflects all work, treatment, procedures, and medical decision making performed by me. Departure Information Dispostion Being Evaluated By Hospitalist Prescriptions Aspirin (ASPIRIN) 81 Mg Tab 81 MG PO QAM, #30 TAB Prov: Anjali Fong ., D.O. 05/11/18 Prednisone Tab (PREDNISONE) 10 Mg Tab 10 MG PO UD, #147 TAB 60mg [id number], 50mg [id number], 40mg [id number], 30mg [id number], 20mg [id number], 10mg [id number] Prov: Anjali Fong ., D.O. 05/11/18 Colchicine (Colcrys) 0.6 Mg Tab 0.6 MG PO BID, #60 TAB Prov: Anjali Fong ., D.O. 05/11/18 Referrals Nikita Brady MD (PCP) Forms HOME CARE DOCUMENTATION FORM, IMPORTANT VISIT INFORMATION, WORK / SCHOOL INSTRUCTIONS Patient Instructions My [facility] Health Problem Qualifiers Primary Impression: Chest pain Chest pain type: unspecified Qualified Codes: R07.9 - Chest pain, unspecified Additional Impressions: Shoulder pain Chronicity: acute Laterality: bilateral Qualified Codes: M25.511 - Pain in right shoulder; M25.512 - Pain in left shoulder Fever Fever type: unspecified Qualified Codes: R50.9 - Fever, unspecified
[2018-05-10] MEDS ORDERED: ACETAMINOPHEN 500 MG TAB PO STA (23:34)
[2018-05-10] MEDS ORDERED: SODIUM CHLORIDE 0.9% 1000ML 1,000 ML IV STA (23:34)
[2018-05-11] LABS: BASO % 0.2 %; BASO ABS # 0.02 K/uL (0-0.2); EOS % 0.5 %; EOS ABS # 0.05 K/uL (0-0.5); HEMATOCRIT 37.8 % (42-52); HEMOGLOBIN 12.7 g/dL (14.0-18.0); IG# 0.04 K/uL (0.00-0.02); LYMPH % 13.7 %; LYMPH ABS # 1.49 K/uL (1.2-3.4); MEAN CELL VOLUME 87.7 fL (80-100); MEAN CORPUSCULAR HEMOGLOBIN 29.5 pg (25-34); MEAN CORPUSCULAR HGB CONC 33.6 g/dl (32-36); MEAN PLATELET VOLUME 10.1 fL (7.4-10.4); MONO % 9.8 %; MONO ABS # 1.06 K/uL (0.11-0.59); NEUT % 75.4 %; NEUT ABS # 8.21 K/uL (1.4-6.5); PLATELET COUNT 292 K/uL (130-400); RED CELL DISTRIBUTION WIDTH CV 14.6 % (11.5-14.5); WHITE BLOOD COUNT 10.87 K/uL (4.8-10.8)
[2018-05-11] MEDS ORDERED: GABA-112 PO (00:09)
[2018-05-11] MEDS ORDERED: ATOR-22 PO (00:09)
[2018-05-11] MEDS ORDERED: FURO-85 PO (00:09)
[2018-05-11] MEDS ORDERED: OPTIRAY 320 IV PRN (00:30)
[2018-05-11 00:32] LABS: ALBUMIN 3.5 gm/dl (3.4-5.0); ALKALINE PHOSPHATASE 74 U/L (45-117); ALT/SGPT 31 U/L (12-78); AST/SGOT 13 U/L (15-37); BLOOD UREA NITROGEN 28 mg/dl (7-18); CALCIUM 8.6 mg/dl (8.5-10.1); CARBON DIOXIDE 27 mmol/L (21-32); CREATININE 1.18 mg/dl (0.60-1.40); GLUCOSE 109 mg/dl (70-99); LIPASE 174 U/L (73-393); POTASSIUM 3.9 mmol/L (3.5-5.1); SODIUM 135 mmol/L (136-145); TOTAL PROTEIN 7.9 gm/dl (6.4-8.2)
[2018-05-11] MEDS ORDERED: IV FLUIDS COMPLETED PRN (03:45)
[2018-05-11 03:48] VITALS: BP 140/79; PULSE 63; TEMP 36.5; O2SAT 95; Ht 190.5 cm; Wt 98.0 kg
[2018-05-11] MEDS ORDERED: COLCHICINE 0.6 MG TAB PO ONE (04:00)
[2018-05-11] MEDS ORDERED: ACETAMINOPHEN 325 MG TAB PO PRN (04:00)
[2018-05-11] MEDS ORDERED: ONDANSETRON INJ 2 MG/ML 2 ML VIAL IV PRN (04:00)
--- NOTE | 2018-05-11 04:23 | History and Physical ---
History & Physical Date & Time of Service: May 11, 2018 at 04:03 Chief Complaint: Chest Pain Primary Care Physician: Nikita Brady MD History of Present Illness Source: patient, clinic records, hospital records 78-year-old male with history of coronary disease status post CABG January 2018, Paroxysmal atrial fibrillation, polymyalgia rheumatica on chronic prednisone, other problems noted below presenting with bilateral shoulder upper back pain. Patient follows with Dr. Armendariz for primary care and Dr. Sweeney for cardiology. He recently underwent CABG procedure last January 2018 at [facility]. A month later, while vacationing in [place], patient was diagnosed to have pericarditis and has been placed on colchicine since that time. He takes Colchicine daily, but does not remember the dose. Patient is on chronic Prednisone 5mg po daily for PMR. Patient reports that he has been feeling fine overall since that time. 3 days prior to admission, patient presented to PCP office for low back pain and was given Robaxin and Medrol Dosepak. Patient reports minimal relief of symptoms. On the day of admission, patient started to have bilateral shoulder and upper back pain associated with subjective fever and chills which is reminiscent of his presentation he was initially diagnosed with pericarditis. He then presented to the ER for further evaluation. On exam patient is sitting up in bed, not in distress, appears comfortable overall. Denies having any chest pain, palpitations, shortness of breath, dizziness, nausea vomiting. No other symptoms. Past Medical/Surgical History Medical Problems: (1) BPH (benign prostatic hyperplasia) (2) Dyslipidemia (3) GERD (gastroesophageal reflux disease) (4) HLA-B27 spondyloarthropathy (5) HTN (hypertension) (6) Lichen planus (7) Osteoarthritis (8) Osteoporosis Surgical Problems: (1) H/O hernia repair (2) History of cataract surgery Family History FH: cirrhosis MOTHER FH: lung cancer FATHER Social History Smoking Status: Never Smoker Alcohol Use: 1 glass of wine per day Drug Use: none Marital Status: single Housing status: lives alone Immunizations History of Influenza Vaccine: Yes Influenza Vaccine Date: Aug 20, 2017 History of Tetanus Vaccine?: Yes Tetanus Immunization Date: Aug 30, 2017 History of Pneumococcal: Yes Pneumococcal Date: Sep 27, 2015 Allergies Coded Allergies: No Known Allergies (Unverified , 05/11/18) Home Medications Scheduled Atorvastatin (Lipitor), 20 MG PO DAILY Calcium/Vitamin D (Os-Don 500 Plus D), 2 TAB PO DAILY Esomeprazole Magnesium (Nexium), 40 MG PO DAILY Furosemide (Lasix), 20 MG PO DAILY Gabapentin (Neurontin), 300 MG PO BID Lisinopril (Prinivil), 5 MG PO DAILY Meloxicam (Mobic), 15 MG PO DAILY Metoprolol Succinate (Toprol Xl), 1 TAB PO DAILY Prednisone (Prednisone), 5 MG PO DAILY Risedronate Sod (Actonel), 1 TAB PO WK Tamsulosin Hcl (Flomax), 0.4 MG PO QPM Triamcinolone Acet (Aristocort 0.1%), DIRECTED Review of Systems Constitutional-positive as noted above; no weight loss Eyes- no acute visual changes ENT- no sinus drainage; no pharyngitis Pulmonary- no cough, no wheezing, no shortness of breath Cardiac-positive as noted above GI- no nausea, no vomiting, no diarrhea, no melena, no hematochezia - no dysuria, no hematuria Musculoskeletal-positive as noted above Derm- no rashes, no new skin lesions, no changing skin lesions Hematologic- no unusual bruising, no unusual bleeding Lymphatics- no adenopathy Endocrine- no polyuria or polydipsia; no heat or cold intolerance Neuro- no headaches, no focal neurologic symptoms Psych- no anxiety, no depression Physical Exam Vital Signs Date Time Temp Pulse Resp B/P (MAP) Pulse Ox O2 Delivery O2 Flow Rate FiO2 05/11/18 03:08 63 23 125/69 93 05/11/18 02:36 63 18 94 Room Air 05/11/18 02:31 129/67 05/11/18 02:12 36.7 05/11/18 02:03 67 05/11/18 02:01 128/74 05/11/18 01:53 62 16 94 Room Air 05/11/18 01:31 129/72 05/11/18 01:23 65 18 93 Room Air 05/11/18 01:18 69 18 94 Room Air 05/11/18 01:01 122/59 05/11/18 00:31 136/80 05/11/18 00:18 69 20 94 Room Air 05/11/18 00:13 69 23 93 Room Air 05/11/18 00:01 143/78 05/11/18 00:00 37.0 05/10/18 23:13 78 25 93 Room Air 05/10/18 23:08 78 22 95 Room Air 05/10/18 23:01 37.8 05/10/18 23:01 145/65 05/10/18 22:59 77 05/10/18 22:53 150/68 05/10/18 22:50 96 Room Air 05/10/18 22:41 37.1 81 18 141/72 93 Room Air General Appearance: WD/WN, no apparent distress Head: normocephalic, atraumatic Eyes: normal inspection, PERRL, EOMI, sclerae normal ENT: normal ENT inspection, hearing grossly normal, TMs normal, pharynx normal Neck: supple, no adenopathy, thyroid normal, no JVD, trachea midline Respiratory/Chest: chest non-tender, lungs clear, normal breath sounds, no respiratory distress, no accessory muscle use Cardiovascular: regular rate, rhythm, no edema, no JVD, no murmur Abdomen/GI: normal bowel sounds, non tender, soft Back: normal inspection, no CVA tenderness Extremities/Musculoskelatal: normal inspection, no calf tenderness, no pedal edema, normal range of motion Neurologic/Psych: 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 as tested, no motor/sensory deficits, alert, normal mood/affect, normal reflexes, oriented x 3 Skin: normal color, warm/dry, no rash Lymphatic: no adenopathy Diagnostics Laboratory Results Results Past 24 Hours Test 05/10/18 23:34 05/10/18 23:52 Range/Units White Blood Count 10.87 4.8-10.8 K/uL Red Blood Count 4.31 4.7-6.1 M/uL Hemoglobin 12.7 14.0-18.0 g/dL Hematocrit 37.8 42-52 % Mean Corpuscular Volume 87.7 80-100 fL Mean Corpuscular Hemoglobin 29.5 25-34 pg Mean Corpuscular Hemoglobin Concent 33.6 32-36 g/dl Platelet Count 292 130-400 K/uL Mean Platelet Volume 10.1 7.4-10.4 fL Neutrophils (%) (Auto) 75.4 % Lymphocytes (%) (Auto) 13.7 % Monocytes (%) (Auto) 9.8 % Eosinophils (%) (Auto) 0.5 % Basophils (%) (Auto) 0.2 % Neutrophils # (Auto) 8.21 1.4-6.5 K/uL Lymphocytes # (Auto) 1.49 1.2-3.4 K/uL Monocytes # (Auto) 1.06 0.11-0.59 K/uL Eosinophils # (Auto) 0.05 0-0.5 K/uL Basophils # (Auto) 0.02 0-0.2 K/uL RDW Standard Deviation 47.0 36.4-46.3 fL RDW Coefficient of Variation 14.6 11.5-14.5 % Immature Granulocyte % (Auto) 0.4 % Immature Granulocyte # (Auto) 0.04 0.00-0.02 K/uL Prothrombin Time 10.4 9.0-12.0 SECONDS Prothromb Time International Ratio 1.0 0.9-1.1 D-Dimer 620 0-500 ug/L FEU Urine Color YELLOW Urine Appearance CLEAR CLEAR Urine pH 6.5 4.5-7.5 Urine Specific Pray 1.016 1.000-1.030 Urine Protein NEG NEG Urine Glucose (UA) NEG NEG Urine Ketones NEG NEG Urine Occult Blood NEG NEG Urine Nitrite NEG NEG Urine Bilirubin NEG NEG Urine Urobilinogen NEG NEG Urine Leukocyte Esterase NEG NEG Sodium Level 135 136-145 mmol/L Potassium Level 3.9 3.5-5.1 mmol/L Chloride Level 100 98-107 mmol/L Carbon Dioxide Level 27 21-32 mmol/L Anion Gap 8.0 3-11 mmol/L Blood Urea Nitrogen 28 7-18 mg/dl Creatinine 1.18 0.60-1.40 mg/dl Est Creatinine Clear Calc Drug Dose 62.7 ml/min Estimated GFR () 68.6 Estimated GFR (Non- 59.2 BUN/Creatinine Ratio 23.9 10-20 Random Glucose 109 70-99 mg/dl Calcium Level 8.6 8.5-10.1 mg/dl Magnesium Level 2.0 1.8-2.4 mg/dl Total Bilirubin 0.5 0.2-1 mg/dl Aspartate Amino Transf (AST/SGOT) 13 15-37 U/L Alanine Aminotransferase (ALT/SGPT) 31 12-78 U/L Alkaline Phosphatase 74 45-117 U/L Troponin I < 0.015 0-0.045 ng/ml Pro-B-Type Natriuretic Peptide 492 0-1800 pg/ml Total Protein 7.9 6.4-8.2 gm/dl Albumin 3.5 3.4-5.0 gm/dl Globulin 4.4 2.5-4.0 gm/dl Albumin/Globulin Ratio 0.8 0.9-2 Lipase 174 73-393 U/L Thyroid Stimulating Hormone (TSH) 1.150 0.300-4.500 uIu/ml Lyme Disease IgG Antibody NEG NEG Lyme Disease IgM Antibody NEG NEG Bedside Lactic Acid Venous 0.96 0.90-1.70 mmol/L Microbiology Results 05/10/18 Blood Culture, Received Pending 05/10/18 Blood Culture, Received Pending Diagnostic Radiology Chest x-ray no infiltrates or effusion EKG Heart rate 78, sinus rhythm ,possible ST elevations in the inferior leads anterior and lateral leads not seen on EKG dated December 09, 2017 Impression Assessment and Plan 78-year-old male with history of coronary disease status post CABG January 2018, Paroxysmal atrial fibrillation, polymyalgia rheumatica on chronic prednisone, other problems noted below presenting with bilateral shoulder upper back pain. Possible recurrence of pericarditis Patient reports that his symptoms of upper back and bilateral shoulder pain with chills are similar to his presentation in February 2018 when he was diagnosed to have pancreatitis He is currently taking colchicine daily since February, and a Medrol Dosepak for low back pain started 3 days ago Check ESR and echocardiogram Increase colchicine to 0.6 mg twice daily Start prednisone 60 mg p.o. daily Already on aspirin 80 mg daily Consult cardiology history of coronary disease status post CABG January 2018 Trend troponins Echocardiogram ordered Continue aspirin, metoprolol, lisinopril, atorvastatin History of paroxysmal A. fib Occurred after CABG Currently sinus rhythm Off anticoagulation polymyalgia rheumatica On chronic prednisone Prednisone increased to 60 mg p.o. daily for #1 Elevated d-dimer CT chest negative for PE per initial read Check Doppler of the legs DVT prophylaxis SCDs for now Anticoagulation not recommended in light of possible recurrent pericarditis CODE STATUS DNR as per patient Disposition Anticipate discharge to home medically stable Resuscitation Status VTE Prophylaxis Will order VTE Prophylaxis: Yes
--- NOTE | 2018-05-11 06:10 | DIAGNOSTIC IMAGING REPORT ---
CHEST ONE VIEW PORTABLE CLINICAL HISTORY: chest pain dyspnea COMPARISON STUDY: 12/05/2017 FINDINGS: Mild cardiomegaly. Interval median sternotomy. Atelectatic versus minimal infiltrative change left base. Lungs otherwise appear clear. IMPRESSION: Atelectatic versus minimal infiltrative change left base. Mild cardiomegaly post median sternotomy. The above report was generated using voice recognition software. It may contain grammatical, syntax or spelling errors. Electronically signed by: Lawrence Rubio M.D. 05/11/2018 6:09 AM Dictated Date/Time: 05/11/2018 6:09 AM
--- NOTE | 2018-05-11 06:20 | DIAGNOSTIC IMAGING REPORT ---
(CHEST FOR PE) ANGIO WITH CT DOSE: 558.85 mGy.cm HISTORY: Chest pain dyspnea TECHNIQUE: Multiaxial CT images of the chest were performed following the intravenous administration of contrast to evaluate the pulmonary arteries. Maximal intensity projection images were also obtained. A dose lowering technique was utilized adhering to the principles of ALARA. COMPARISON STUDY: 12/05/2017 FINDINGS: Interval operative changes consistent with a median sternotomy. Bilateral basilar lower lobe atelectatic/infiltrative change. Small pericardial effusion. Trace pleural effusion left base. The pulmonary vasculature enhances peripherally. No major filling defect. IMPRESSION: 1. No evidence for pulmonary embolus. 2. Bibasilar parenchymal infiltrative/atelectatic changes. 3. Small pericardial effusion. 4. Interval median sternotomy The above report was generated using voice recognition software. It may contain grammatical, syntax or spelling errors. Electronically signed by: Lawrence Rubio M.D. 05/11/2018 6:19 AM Dictated Date/Time: 05/11/2018 6:17 AM
[2018-05-11 08:07] VITALS: BP 131/68; PULSE 71; TEMP 36.4; O2SAT 93
[2018-05-11] MEDS ORDERED: CALCIUM 600MG + VIT D 400 IU TAB PO SCH (09:00)
[2018-05-11] MEDS ORDERED: ASPIRIN 81 MG ECTAB PO SCH (09:00)
[2018-05-11] MEDS ORDERED: METOPROLOL SUCC 25MG EXT REL TAB PO SCH (09:00)
[2018-05-11] MEDS ORDERED: GABAPENTIN 100 MG CAP PO SCH (09:00)
[2018-05-11] MEDS ORDERED: PANTOprazole SOD 40 MG TAB PO SCH (09:00)
[2018-05-11] MEDS ORDERED: ATORVASTATIN 20 MG TAB PO SCH (09:00)
[2018-05-11] MEDS ORDERED: LISINOPRIL 5 MG TAB PO SCH (09:00)
[2018-05-11] MEDS ORDERED: FUROSEMIDE 20 MG TAB PO SCH (09:00)
--- NOTE | 2018-05-11 10:11 | ECHOCARDIOGRAM REPORT ---
*NOTICE TO RECEIVING [employer] This information is strictly Confidential and protected under [place] law. [place] law prohibits you from making any further disclosure of this information unless further disclosure is expressly permitted by the written consent of the person to whom it pertains or is authorized by law. A general authorization for the release of medical or other information is not sufficient for this purpose. Hospital accepts no responsibility if the information is made available to any other person, INCLUDING THE PATIENT. Interpretation Summary * Name: CRISTINA RODARTE Study Date: 05/11/2018 06:26 AM BP: 140/79 mmHg * Patient Location: C.2E\S\E212\S\1 HR: 63 * : 1940 (M/d/yyyy) Gender: Male Height: 75 in * Age: 78 yrs Ethnicity: CA Weight: 216 lb * Ordering Physician: Theron Dubose * Referring Physician: Self, Referred * Performed By: Jayde Reynoso RCS * * Reason For Study: PERICARDITIS / WORSENING OF SX'S * BSA: 2.3 m2 * -- Conclusions -- * Normal LV chamber size with mild concentric LVH. * Normal LV systolic function, EF 55-60%. * No segmental left ventricular wall motion abnormalities are noted. * Grade I diastolic dysfunction. * No significant valvular pathology. * The pericardium appears mildly thickened. Procedure Details * A complete two-dimensional transthoracic echocardiogram was performed (2D, M-mode, Doppler and color flow Doppler). * A contrast injection of Definity was performed to improve assessment of LV function. * Contrast was injected into an intravenous site in the left arm. * One vial of Definity ultrasound contrast was diluted in normal saline to a total volume of 10 ml. A total of '2' ml of solution was administered during imaging. * Lot # [id number] of Definity utilized for procedure. * Expiration date MARCH 15. * The attending nurse who injected the contrast agent was CHARLEY DEGROOT, EDINSON. Left Ventricle * The left ventricle is normal in size. * There is mild concentric left ventricular hypertrophy. * Left ventricular systolic function is normal. * No segmental left ventricular wall motion abnormalities are noted. * Ejection Fraction = 55-60%. * The left ventricular wall motion is normal. Right Ventricle * The right ventricular cavity size is normal (basal dimension <4.2 cm in right ventricular apical 4-chamber view). * The right ventricular systolic function is normal as assessed by tricuspid annular plane systolic excursion (TAPSE) (normal >1.5 cm). Atria * The left atrium is moderately dilated. * Right atrial size is normal. * No ASD detected; PFO is not assessed. Mitral Valve * The mitral valve is normal in structure and function. Tricuspid Valve * The tricuspid valve is normal in structure and function. Aortic Valve * The aortic valve is normal in structure and function. Pulmonic Valve * The pulmonary valve is not well seen, but the Doppler examination is normal without significant regurgitation or stenosis. Great Vessels * The aortic root is normal size. Pericardium/Pleural * The pericardium appears mildly thickened. Left Ventricular Diastolic Function * Grade I diastolic dysfunction, (abnormal relaxation pattern). MMode 2D Measurements and Calculations IVSd 1.5 cm IVSs 1.9 cm LVIDd 4.1 cm LVIDs 2.9 cm LVPWd 1.4 cm LVPWs 1.6 cm IVS/LVPW 1.1 FS 30.7 % EDV(Teich) 75.9 ml ESV(Teich) 31.3 ml EF(Teich) 58.7 % EDV(cubed) 70.9 ml ESV(cubed) 23.6 ml EF(cubed) 66.7 % % IVS thick 21.7 % % LVPW thick 16.0 % LV mass(C)d 231.6 grams LV mass(C)dI 102.1 grams/m\S\2 LV mass(C)s 190.7 grams LV mass(C)sI 84.1 grams/m\S\2 SV(Teich) 44.6 ml SI(Teich) 19.7 ml/m\S\2 SV(cubed) 47.3 ml SI(cubed) 20.9 ml/m\S\2 Ao root diam 3.2 cm Ao root area 7.9 cm\S\2 ACS 2.3 cm LA dimension 4.0 cm LA/Ao 1.3 LVOT diam 2.0 cm LVOT area 3.3 cm\S\2 LVAd ap4 31.2 cm\S\2 LVLd ap4 7.3 cm EDV(MOD-sp4) 107.7 ml EDV(sp4-el) 112.9 ml LVAs ap4 18.1 cm\S\2 LVLs ap4 6.3 cm ESV(MOD-sp4) 42.4 ml ESV(sp4-el) 43.7 ml EF(MOD-sp4) 60.6 % EF(sp4-el) 61.3 % LVAd ap2 29.7 cm\S\2 LVLd ap2 7.2 cm EDV(MOD-sp2) 100.1 ml EDV(sp2-el) 104.6 ml LVAs ap2 17.3 cm\S\2 LVLs ap2 5.6 cm ESV(MOD-sp2) 43.0 ml ESV(sp2-el) 45.2 ml EF(MOD-sp2) 57.1 % EF(sp2-el) 56.8 % LVLd %diff -1.86 % EDV(MOD-bp) 103.8 ml LVLs %diff -12.64 % ESV(MOD-bp) 44.2 ml EF(MOD-bp) 57.4 % SV(MOD-sp4) 65.3 ml SI(MOD-sp4) 28.8 ml/m\S\2 SV(MOD-sp2) 57.1 ml SI(MOD-sp2) 25.2 ml/m\S\2 SV(MOD-bp) 59.5 ml SI(MOD-bp) 26.3 ml/m\S\2 SV(sp4-el) 69.2 ml SI(sp4-el) 30.5 ml/m\S\2 SV(sp2-el) 59.4 ml SI(sp2-el) 26.2 ml/m\S\2 Doppler Measurements and Calculations MV E max zuleyma 65.5 cm/sec MV A max zuleyma 91.8 cm/sec MV E/A 0.71 MV P1/2t max zuleyma 81.3 cm/sec MV P1/2t 103.1 msec MVA(P1/2t) 2.1 cm\S\2 MV dec slope 231.1 cm/sec\S\2 MV dec time 0.38 sec Ao V2 max 154.1 cm/sec Ao max PG 9.5 mmHg Ao max PG (full) 4.7 mmHg ARAM(V,A) 2.3 cm\S\2 ARAM(V,D) 2.3 cm\S\2 LV V1 max PG 4.8 mmHg LV V1 max 109.3 cm/sec PA V2 max 153.1 cm/sec PA max PG 9.4 mmHg PI max zuleyma 206.0 cm/sec PI max PG 17.0 mmHg PI dec slope 181.7 cm/sec\S\2 PI P1/2t 332.0 msec TR max zuleyma 315.4 cm/sec
[2018-05-11 11:22] VITALS: BP 121/72; PULSE 67; TEMP 36.5; O2SAT 91
[2018-05-11] MEDS ORDERED: PRED10TA PO (12:15)
[2018-05-11] MEDS ORDERED: CLC6 PO (12:15)
[2018-05-11] MEDS ORDERED: ASPI-461 PO (12:15)
--- NOTE | 2018-05-11 12:26 | Discharge Instructions ---
Discharge Instructions Date of Service May 11, 2018. Admission Reason for Admission: Chest Pain Discharge Discharge Diagnosis / Problem: Chest pain Discharge Goals Goal(s): Therapeutic intervention Activity Recommendations Activity Limitations: per Instructions/Follow-up section Lifting Limitations: gradually increase as tolerated Exercise/Sports Limitations: gradually increase as tolerated . Instructions / Follow-Up Instructions / Follow-Up Please see Dr. Tamayo as scheduled Please expect to receive a call from Dr. Brady's office regarding scheduling a hospital follow up appointment Medication instructions: Steroid taper: decrease by 10 mg each week (Every Saturday decrease the dose as per table below) take 6 tabs daily (60mg) for 6 days then 5 tabs daily (50mg) for 7 days then 4 tabs daily (40mg) for 7 days then 3 tabs daily (30mg) for 7 days then 2 tabs daily (20mg) for 7 days then 1 tab daily (10mg) for 7 days then resume your normal Prednisone 5 mg daily dose Current Hospital Diet Patient's current hospital diet: AHA Diet (Heart Healthy) Discharge Diet Recommended Diet: AHA Diet (Heart Healthy) Pending Studies Studies pending at discharge: no Medical Emergencies . Who to Call and When: Medical Emergencies: If at any time you feel your situation is an emergency, please call 911 immediately. . Non-Emergent Contact Non-Emergency issues call your: Primary Care Provider, Desktop Publishing Specialist Call Non-Emergent contact if: you have a fever, your pain is worsening . . "Provider Documentation" section prepared by Anjali Fong. .
--- NOTE | 2018-05-11 12:27 | Discharge Summary ---
Discharge Summary Date of Service May 11, 2018. Discharge Summary Admission Date: May 11, 2018 at 02:36 Discharge Date: May 11, 2018 Discharge Disposition: Home Principal Diagnosis: Pericarditis (steroid dependant) Consultations: Cardiology Medication Reconciliation New Medications: Prednisone Tab (Prednisone) 10 Mg Tab 10 MG PO UD, #147 TAB 60mg [id number], 50mg [id number], 40mg [id number], 30mg [id number], 20mg [id number], 10mg [id number] Aspirin (Aspirin) 81 Mg Tab 81 MG PO QAM, #30 TAB Colchicine (Colcrys) 0.6 Mg Tab 0.6 MG PO BID, #60 TAB Continued Medications: Atorvastatin (Lipitor) 20 Mg Tab 20 MG PO DAILY, TAB Calcium/Vitamin D (Os-Don 500 Plus D) Tab 2 TAB PO DAILY, TAB Esomeprazole Magnesium (Nexium) 40 Mg Capcr 40 MG PO DAILY, CAP Furosemide (Lasix) 20 Mg Tab 20 MG PO DAILY, TAB Gabapentin (Neurontin) 100 Mg Cap 300 MG PO BID, CAP Lisinopril (Prinivil) 5 Mg Tab 5 MG PO DAILY, TAB Meloxicam (Mobic) 15 Mg Tab 15 MG PO DAILY, TAB Metoprolol Succinate (Toprol Xl) 25 Mg Tabcr 1 TAB PO DAILY for 30 Days, #30 TAB 5 Refills Risedronate Sod (Actonel) 35 Mg Tab 1 TAB PO WK for 28 Days, #4 TAB 5 Refills Tamsulosin Hcl (Flomax) 0.4 Mg Cap 0.4 MG PO QPM, CAP Triamcinolone Acet (Aristocort 0.1%) 90 Appln/30 Gm Cr DIRECTED Discontinued Medications: Prednisone (Prednisone) 5 Mg Tab 5 MG PO DAILY, TAB Admission Information HPI (per Admitting provider): 78-year-old male with history of coronary disease status post CABG January 2018, Paroxysmal atrial fibrillation, polymyalgia rheumatica on chronic prednisone, other problems noted below presenting with bilateral shoulder upper back pain. Patient follows with Dr. Armendariz for primary care and Dr. Sweeney for cardiology. He recently underwent CABG procedure last January 2018 at [facility]. A month later, while vacationing in [place], patient was diagnosed to have pericarditis and has been placed on colchicine since that time. He takes Colchicine daily, but does not remember the dose. Patient is on chronic Prednisone 5mg po daily for PMR. Patient reports that he has been feeling fine overall since that time. 3 days prior to admission, patient presented to PCP office for low back pain and was given Robaxin and Medrol Dosepak. Patient reports minimal relief of symptoms. On the day of admission, patient started to have bilateral shoulder and upper back pain associated with subjective fever and chills which is reminiscent of his presentation he was initially diagnosed with pericarditis. He then presented to the ER for further evaluation. On exam patient is sitting up in bed, not in distress, appears comfortable overall. Denies having any chest pain, palpitations, shortness of breath, dizziness, nausea vomiting. No other symptoms. Physical Exam (per Admitting): General Appearance: WD/WN, no apparent distress Head: normocephalic, atraumatic Eyes: normal inspection, PERRL, EOMI, sclerae normal ENT: normal ENT inspection, hearing grossly normal, TMs normal, pharynx normal Neck: supple, no adenopathy, thyroid normal, no JVD, trachea midline Respiratory/Chest: chest non-tender, lungs clear, normal breath sounds, no respiratory distress, no accessory muscle use Cardiovascular: regular rate, rhythm, no edema, no JVD, no murmur Abdomen/GI: normal bowel sounds, non tender, soft Back: normal inspection, no CVA tenderness Extremities/Musculoskelatal: normal inspection, no calf tenderness, no pedal edema, normal range of motion Neurologic/Psych: 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 service 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 II-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 nml as tested, no motor/sensory deficits, alert , normal mood/affect, normal reflexes, oriented x 3 Skin: normal color, warm/dry, no rash Lymphatic: no adenopathy Hospital Course PERICARDITIS: Recurrent -patient reports that his symptoms of upper back and bilateral shoulder pain with chills are similar to his presentation in February 2018 when he was diagnosed to have pancreatitis -currently taking colchicine daily since February -was started on a Medrol Dosepak for low back pain started 3 days ago -ESR -TTE showed mildly thickened pericardium and the CT chest small effusion -Increase colchicine to 0.6 mg twice daily -Start prednisone 60 mg p.o. daily -continue on aspirin 80 mg daily -Consulted cardiology, appreciate recs, advise a very slow taper of the prednisone CAD: s/p CABG January 2018 -troponins not trending up -TTE report: * -- Conclusions -- * Normal LV chamber size with mild concentric LVH. * Normal LV systolic function, EF 55-60%. * No segmental left ventricular wall motion abnormalities are noted. * Grade I diastolic dysfunction. * No significant valvular pathology. * The pericardium appears mildly thickened. -Continue aspirin, metoprolol, lisinopril, atorvastatin History of paroxysmal A. fib: -only occurred after CABG -remains in sinus rhythm -off anticoagulation PMR: -on chronic prednisone -Prednisone increased to 60 mg p.o. daily; can resume the 5 mg prednisone after the steroids for pericarditis are tapered Elevated d-dimer: -CT chest negative for PE per initial read -Check Doppler of the legs PHYSICAL EXAM: GENERAL: Patient is in no acute distress. HEENT: No acute trauma, normocephalic, mucous membranes moist, no nasal congestion, no scleral icterus. NECK: No stridor, trachea is midline. LUNGS: Clear to auscultation bilaterally, no wheeze, no rhonchi, breath sounds equal. HEART: Without gallops or rubs, regular rate and rhythm. + murmur ABDOMEN: Soft, nontender, bowel sounds positive EXTREMITIES: No cyanosis or edema, full range of motion of all the joints without pain or difficulty, no signs for acute trauma. NEUROLOGIC: Oriented x 3, no acute motor or sensory deficits, no focal weakness. SKIN: No rash, no jaundice, no diaphoresis. Total time spent on discharge = 37 This includes examination of the patient, discharge planning, medication reconciliation, and communication with other providers. Discharge Instructions see patient instructions
[2018-05-11 12:31] VITALS: BP 121/72; PULSE 67; TEMP 36.5; O2SAT 91
--- NOTE | 2018-05-11 13:18 | CARDIOLOGY CONSULTATION ---
DATE OF CONSULTATION: 05/11/2018 INPATIENT CONSULTATION CONSULTATION REQUESTED BY: Dr. Dubose. REASON FOR CONSULTATION: Recurrent pericarditis. HISTORY OF PRESENT ILLNESS: Mr. Marie is a very pleasant 78-year-old gentleman who normally follows with Dr. Tamayo of our cardiology practice. He presented to [facility] Emergency Department late in the evening of 05/10/2018 with a complaint of bilateral shoulder pain along with myalgias and a low-grade temperature throughout the day. The patient's recent medical history was significant for coronary artery bypass grafting surgery at [facility] in [place] in January with a late term complication of pericarditis which occurred when the patient was out of town in February. He states that his initial pericarditis symptoms are the exact same as the symptoms brought him into the Emergency Department. He was having some achy shoulder pain along with increasing fatigue, low-grade temperature and myalgias for several days. He was seen by a barber stylist in [place], [place], restarted on ibuprofen and colchicine with resolution of his pericardial symptoms. Unfortunately, the patient does have ongoing back problems and was recently given a Medrol Dosepak for possible sciatica pain and the patient is usp through the Medrol Dosepak when his pericarditis symptoms returned. Otherwise, he is on chronic low-dose prednisone for history of lichen planus. PAST SURGICAL HISTORY: 1. Coronary artery bypass grafting surgery x4 with a JUSTICE to LAD, vein graft to OM1 to the posterior lateral and vein graft to the diagonal along with left atrial appendage clip, January 2018. 2. Caval tricuspid isthmus ablation for atrial flutter, November 2017. 3. [place] tooth extraction. 4. Hernia repair. 5. Upper endoscopy. 6. Colonoscopy. 7. Cataract surgery. 8. Eyelid surgery. MEDICAL ILLNESSES: 1. Coronary artery disease status post CABG x4. 2. History of tachycardia-induced cardiomyopathy, resolved. 3. Atrial flutter status post tri-caval isthmus ablation along with left atrial clip. 4. Longstanding polymyalgia rheumatica and lichen planus, on chronic prednisone. 5. Spondyloarthropathy. 6. Chronic back pain. FAMILY HISTORY: Noncontributory. SOCIAL HISTORY: The patient has remote tobacco use history. Denies any alcohol or recreational drug use. He is single. He has 4 children. 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 REVIEW OF SYSTEMS: As per HPI, all other review of systems reviewed and negative at this time. MEDICATIONS AN OUTPATIENT: 1. Medrol Dosepak started on May 08. 2. Tramadol p.r.n. 3. Neurontin b.i.d. 4. Prednisone 5 mg daily. 5. Lasix daily. 6. Atorvastatin 40 mg daily. 7. Aspirin 81 mg daily. 8. Metoprolol succinate 25 mg daily. 9. Lisinopril 5 mg daily. 10. Nexium daily. PHYSICAL EXAMINATION: VITAL SIGNS: Temperature 36.5, pulse 67, respiratory rate 12, blood pressure 121/72. GENERAL: Awake, alert, oriented x3 in no acute distress. HEENT: Normocephalic, atraumatic. Pupils equal, round and reactive to light and accommodation. Extraocular muscles intact. Anicteric sclerae. Moist mucous membranes. NECK: No JVD, no bruit. CARDIOVASCULAR: Regular. Positive S4. Normal S1 and S2. No S3. No murmurs or rubs. PULMONARY: Clear to auscultation bilaterally. No rales, rhonchi, or wheezing. ABDOMEN: Bowel sounds x4, soft. No rebound, guarding, tenderness. No organomegaly. EXTREMITIES: No clubbing, cyanosis or edema. +2 pedal pulses bilaterally. SKIN: Warm and dry. TEST RESULTS: A 12-lead EKG performed in the Emergency Department independently reviewed at this time shows normal sinus rhythm with incomplete right bundle-branch block. Concave [address] segment elevations in the inferior and lateral leads. A 2D echocardiogram showed normal LV chamber size with mild concentric LVH, normal LV systolic function, EF 55-60% without segmental wall motion abnormality, grade 1 diastolic dysfunction, no significant valvular pathology. The pericardium appears mildly thickened. IMPRESSION: 1. 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 2. Coronary artery disease status post CABG. 3. Chronic back pain. 4. Chronic steroid use with history of lichen planus. RECOMMENDATIONS: It was my pleasure to see Mr. Marie in consultation today. The difficult nature of titrating steroids in the setting of acute pericarditis was discussed with the patient in great lengths as well as the pathophysiology of anti-inflammatories with pericarditis, so the patient's pain is now controlled, so I see no reason to keep him as an inpatient, but I recommend he be discharged to home with a long slow taper of steroids. He has been started on prednisone 60 mg daily and I recommend he should be sent home with prednisone 60 mg daily for 1 week, then 50 mg daily for 1 week, then 40 mg daily for 1 week, etc. The patient was counseled on the high rates and possible recurrence with further steroid titration, but again we will follow this closely as an outpatient. He is already scheduled to see Dr. Tamayo in the of this month and I recommend he continue that appointment. Otherwise, there is no need to continue the ibuprofen that he was on previously, but he should continue the b.i.d. colchicine for now and I will need to keep a close eye on his renal function as well. Otherwise, he should continue his aspirin, metoprolol, lisinopril and atorvastatin.
[2018-05-11] MEDS ORDERED: TAMSULOSIN HCL 0.4 MG CAP PO SCH (21:00)
[2018-05-11] MEDS ORDERED: COLCHICINE 0.6 MG TAB PO SCH (21:00)
== END 2018-05-11 12:50 | disposition home or self-care (01) ==
LOC: C.EDB 22:39 → C.2E 05-11 02:36 → ENRESERV 05-11 02:52
PROVIDERS: ADMIT Internal Medicine; ATTEND Internal Medicine
DX: I31.9 Disease of pericardium, unspecified (principal); I25.10 Atherosclerotic heart disease of native coronary artery without angina pectoris; N40.0 Benign prostatic hyperplasia without lower urinary tract symptoms; E78.5 Hyperlipidemia, unspecified; K21.9 Gastro-esophageal reflux disease without esophagitis; I48.0 Paroxysmal atrial fibrillation; M35.3 Polymyalgia rheumatica; I10 Essential (primary) hypertension; Z95.1 Presence of aortocoronary bypass graft; Z79.52 Long term (current) use of systemic steroids; Z79.82 Long term (current) use of aspirin; Z79.899 Other long term (current) drug therapy

== ENCOUNTER 2018-06-20 08:50 | Inpatient (IN) | payer OTHER ==
[~2018-06-20] VITALS: Ht 190.5 cm; Wt 99.2 kg
[~2018-06-20 08:50] MED LIST changes: -APIX1TAB3 PO; +ASPI-461 PO; +ATOR-22 PO; +CLC6 PO; +FURO-85 PO; +GABA-112 PO; -PRED-301 PO; +PRED10TA PO; -SIMV20TA5 PO; -[UNRECOGNIZED DRUG - CODE]
[2018-06-20] MEDS ORDERED: METOPROLOL TARTRATE 1 MG/ML VIAL IV STA (09:20)
[2018-06-20] MEDS ORDERED: SODIUM CHLORIDE 0.9% 1000ML 1,000 ML IV STA (09:20)
[2018-06-20 09:22] LABS: ISTAT CREATININE 1.2 mg/dl (0.6-1.3); ISTAT IONIZED CALCIUM 1.12 mmol/l (1.12-1.32); ISTAT POTASSIUM 3.9 mEq/L (3.3-5.0)
--- NOTE | 2018-06-20 09:22 | DIAGNOSTIC IMAGING REPORT ---
CHEST ONE VIEW PORTABLE CLINICAL HISTORY: irregular hr COMPARISON STUDY: Chest radiograph and chest CT May 11, 2018. FINDINGS: Note is made of median sternotomy wires. Cardiomegaly is unchanged. There is no evidence for pulmonary edema. Linear bibasilar opacities favor atelectasis. There is no consolidation to suggest pneumonia. IMPRESSION: No acute cardiopulmonary findings. No change in appearance of the chest. Electronically signed by: Kishor Lew M.D. 06/20/2018 9:21 AM Dictated Date/Time: 06/20/2018 9:19 AM
[2018-06-20 09:30] LABS: MEAN CORPUSCULAR HGB CONC 33.6 g/dl (32-36); MEAN PLATELET VOLUME 9.9 fL (7.4-10.4); PLATELET COUNT 274 K/uL (130-400)
[2018-06-20] MEDS ORDERED: ASPCH81X PO (09:41)
[2018-06-20] MEDS ORDERED: ATOR-24 PO (09:41)
[2018-06-20] MEDS ORDERED: PRED-301 PO (09:41)
[2018-06-20] MEDS ORDERED: MAGN400T6 PO (09:41)
[2018-06-20] MEDS ORDERED: COLC0.6T54 PO (09:41)
[2018-06-20] MEDS ORDERED: METH-445 PO (09:41)
[2018-06-20] MEDS ORDERED: CIPR-304 PO (09:41)
[2018-06-20] MEDS ORDERED: LORA-741 PO (09:41)
[2018-06-20] MEDS ORDERED: TRAM-10 PO (09:41)
[2018-06-20 10:01] LABS: BASO % 0.1 %; BASO ABS # 0.01 K/uL (0-0.2); EOS % 1.4 %; EOS ABS # 0.13 K/uL (0-0.5); HEMATOCRIT 43.5 % (42-52); HEMOGLOBIN 14.6 g/dL (14.0-18.0); IG# 0.09 K/uL (0.00-0.02); LYMPH % 37.3 %; LYMPH ABS # 3.38 K/uL (1.2-3.4); MEAN CELL VOLUME 87.7 fL (80-100); MEAN CORPUSCULAR HEMOGLOBIN 29.4 pg (25-34); MONO % 5.1 %; MONO ABS # 0.46 K/uL (0.11-0.59); NEUT % 55.1 %; NEUT ABS # 4.98 K/uL (1.4-6.5); RED CELL DISTRIBUTION WIDTH CV 14.7 % (11.5-14.5); RED CELL DISTRIBUTION WIDTH SD 47.4 fL (36.4-46.3); WHITE BLOOD COUNT 9.05 K/uL (4.8-10.8)
[2018-06-20 10:09] LABS: ALBUMIN 3.3 gm/dl (3.4-5.0); ALKALINE PHOSPHATASE 72 U/L (45-117); ALT/SGPT 42 U/L (12-78); AST/SGOT 19 U/L (15-37); BLOOD UREA NITROGEN 21 mg/dl (7-18); CALCIUM 8.4 mg/dl (8.5-10.1); CARBON DIOXIDE 25 mmol/L (21-32); GLUCOSE 165 mg/dl (70-99); POTASSIUM 3.8 mmol/L (3.5-5.1); SODIUM 135 mmol/L (136-145)
[2018-06-20 10:52] VITALS: O2SAT 98; Ht 190.5 cm; Wt 99.2 kg
[2018-06-20] MEDS ORDERED: ACETAMINOPHEN 325 MG TAB PO PRN (11:30)
[2018-06-20] MEDS ORDERED: PRD10 PO (11:32)
[2018-06-20] MEDS ORDERED: HYDROCORTISONE IV 100 MG in SYRINGE 0 ML IV ONE (12:15)
[2018-06-20] MEDS ORDERED: METOPROLOL TARTRATE 25 MG TAB PO SCH (13:15)
[2018-06-20 13:38] VITALS: O2SAT 96
--- NOTE | 2018-06-20 13:41 | CARDIOLOGY CONSULTATION ---
DATE OF CONSULTATION: 06/20/2018 CONSULTATION REQUESTED BY: Lola Spencer PA-C REASON FOR CONSULTATION: Tachycardia with a brief syncopal spell. HISTORY OF PRESENT ILLNESS: Mr. Marie is a very pleasant 78-year-old gentleman who follows very closely with our cardiology practice with Dr. Tamayo being his primary public relations coordinator. He presented to [facility] today after waking up this morning and not feeling well. He states that after getting a full night's sleep of 8-9 hours, he woke up this morning feeling very lethargic. He was having some lightheadedness as he went through his morning routine as well. Last night, he also had significant sweating and notes that the bed sheets were almost completely wet through this morning. Even after having coffee, he has lethargy continued. He then went upstairs to change the bed sheets and while doing so, he gets significantly short of breath. At that time, he sat down, put his Eyewatch on to check his heart rate and it was in the 180s. At that time, he called a significant other, bringing him in the Emergency Department. In the triage area upon standing, he got very lightheaded and dizzy and lost consciousness for a few moments. He was placed on monitor and found to be in SVT in the 180s. He quickly regained consciousness. He was given 5 mg of IV Lopressor and continued to have runs of SVT off and on in the Emergency Department. Otherwise, he denies experiencing any palpitations, chest pain and states that this is not similar to previous episodes. Of note, for the past week, the patient has not been feeling well. He thought he was getting some fevers off and on and taking Tylenol for fevers, night sweats and myalgias. He was seen by primary care with Dr. Brady and treated for possible urinary tract infection. Of note, the patient is continued on a long prednisone taper for his pericarditis and recently decreased from 20 to 10 mg daily. He was placed on Cipro for possible UTI at the visit with Dr. Brady. PAST SURGICAL HISTORY: 1. Coronary artery bypass grafting surgery x4 with a JUSTICE to the LAD, vein graft to OM1 to the posterior lateral and a vein graft to diagonal along with a left atrial appendage clip, January 2018. 2. Caval tricuspid isthmus ablation for typical atrial flutter, November 2017. 3. [place] tooth extraction. 4. Hernia repair. 5. Upper endoscopy. 6. Colonoscopy. 7. Cataract surgery. 8. Eyelid surgery. MEDICAL ILLNESSES: 1. Coronary artery disease, status post CABG. 2. History of tachycardia-induced cardiomyopathy, resolved. 3. Atrial flutter status post ablation and status post left atrial clip. 4. Longstanding polymyalgia rheumatica and lichen planus, on chronic prednisone. 5. Spondyloarthropathy. 6. Chronic back pain. 7. Recurrent pericarditis with lowering prednisone doses. FAMILY HISTORY: Noncontributory. SOCIAL HISTORY: He has a remote tobacco use history. Denies any alcohol or recreational drug use. He is single. He has 4 children. 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 REVIEW OF SYSTEMS: As per HPI, all other review of systems reviewed and negative at this time. MEDICATIONS: 1. Cipro 500 mg b.i.d. for 10 days. 2. Magnesium oxide 400 mg daily. 3. Colchicine 0.6 mg b.i.d. 4. Lisinopril 5 mg daily. 5. Flomax daily. 6. Neurontin. 7. Prednisone taper. 8. Lasix p.r.n. 9. Atorvastatin 40 mg daily. 10. Aspirin 81 mg daily. 11. Metoprolol succinate 25 mg daily. PHYSICAL EXAMINATION: VITALS: Temperature is 36.4, pulse 93, respiratory rate 12, blood pressure 140/65. GENERAL: Awake, alert, oriented x3, in no acute distress. HEENT: Normocephalic, atraumatic. Pupils equal, round, and reactive to light and accommodation. Extraocular muscles intact. Anicteric sclerae. Moist mucous membranes. NECK: No JVD, no bruit. CARDIOVASCULAR: Regular. Positive S4. Normal S1 and S2. No S3. No murmurs or rubs. PULMONARY: Clear to auscultation bilaterally. No rales, rhonchi, or wheezing. ABDOMEN: Bowel sounds x4, soft. No rebound, guarding, tenderness. No organomegaly. EXTREMITIES: No clubbing, cyanosis or edema. +2 pedal pulses bilaterally. SKIN: Warm and dry. TEST RESULTS: Initial EKG performed at 0904 independently reviewed at this time shows sinus rhythm with occasional PVCs and PACs. Repeat EKG at 0905 shows atrial fibrillation with rapid ventricular response at 140 beats per minute. Review of telemetry monitoring shows episodes of supraventricular tachycardia, possibly atrial fibrillation with bouts of sinus rhythm with occasional PACs as well. IMPRESSION: 1. Paroxysmal supraventricular tachycardia, possibly atrial fibrillation. 2. History of atrial flutter, status post ablation. 3. Coronary artery disease, status post CABG x4. 4. Recurrent pericarditis on slow prednisone taper. 5. History of polymyalgia rheumatica, on chronic steroids. RECOMMENDATIONS: It was my pleasure to see Mr. Marie in consultation today. At this point, I am not 100% confident saying that the patient is actually having atrial fibrillation and I would like to monitor him for a longer period of time. Luckily, he does have a left atrial appendage clip, so there is no guan to anticoagulate, but he is in sinus rhythm currently. I would also like to increase his beta maría and consideration will be given to possibly starting antiarrhythmic therapy with either sotalol or amiodarone as well. Otherwise, a limited echo will be repeated at this time to evaluate his pericardium. I would hesitate on going up on his steroids and I do believe his nonspecific symptoms are actually his adrenal glands adjusting to the lower dosage and would prefer to keep him on his current dose of prednisone 10 mg and see how he progresses.
[2018-06-20 13:50] VITALS: BP 131/75; PULSE 81; TEMP 37.1; O2SAT 97
[2018-06-20] MEDS ORDERED: HEPARIN SOD 5000 UNIT/0.5 ML CARP SQ SCH (14:00)
--- NOTE | 2018-06-20 14:28 | History and Physical ---
History & Physical Date & Time of Service: Jun 20, 2018 at 11:54 Chief Complaint: Heart Rate Primary Care Physician: Nikita Brady MD History of Present Illness Source: patient This is a 78-year-old male who has significant PMH CAD status post CABG 4 in 2017, PAF status post caval triscuspid isthmus ablation in 12/09/17, CKD 3, hypertension, HLD, PMR, HLA-B27, GERD, BPH who presents with fever, sweats, tachycardia and shortness of breath 3 days. Of note patient had recent hospitalization back in early April in [place] secondary to pericarditis treated with ibuprofen. He then presented to [facility] due to fever and sweats. Echo at that time revealed thickened pericardium, EF 55-60%. It was felt patient had recurrent pericarditis, therefore placed on prolonged prednisone taper starting at 60 mg, colchicine 0.6 mg twice daily. He had otherwise been doing well until approximately 3 days prior in which he noted intermittent feeling febrile, sweats, night sweats, weakness, lethargy. He did see PCP Dr. Brady yesterday in office and was prescribed Cipro 500 mg twice daily 10 days for possible UTI. He was complaining of dysuria. When awoke this morning bed sheets were soaked. [place] increasingly lethargic, weak. Was changing bed sheets when noted he was short of breath. Looked at [employer] noting his heart rate to be in 180s. Called significant other to bring to ED. While in triage he was lightheaded, dizzy, was in wheelchair when had short syncopal episode. Was rushed to bed in which regained consciousness in less than 1 minute. An EKG done and noted to be in possible SVT. Was given 5 mg IV Lopressor which returned heart rate to normal however continue to have intermittent PAC/arrhythmia. Currently sitting in bed he feels improved from arrival. Currently denies fever, chills, sweats, lightheadedness, dizziness, change in vision, change in hearing, chest pain, shortness of breath at rest, palpitations, nausea, vomiting, diarrhea, dysuria. He notes he has been having intermittent dysuria for the past several months. He does have occasional urgency with urination as well as difficulty starting stream. His last known feeling feverish was approximate 8:30 AM. Further elicits to having myalgias, joint aches. Initial troponin was negative, BUN/creatinine relatively unremarkable except hyperglycemia was 176, BUN 21, creatinine 1.2, ESR 45, CRP 11.9. Chest x-ray revealed possible atelectasis otherwise no acute abnormality. He is now being admitted for further observation of possible arrhythmia, echocardiogram to evaluate pericardium. Past Medical/Surgical History Medical Problems: (1) BPH (benign prostatic hyperplasia) Status: Chronic (2) CKD (chronic kidney disease), stage III Status: Chronic (3) Coronary artery disease Status: Chronic (4) Dyslipidemia Status: Chronic (5) GERD (gastroesophageal reflux disease) Status: Chronic (6) HLA-B27 spondyloarthropathy Status: Chronic (7) HTN (hypertension) Status: Chronic (8) Lichen planus Status: Chronic (9) Osteoarthritis Status: Chronic (10) Osteoporosis Status: Chronic (11) Polymyalgia rheumatica Status: Chronic Surgical Problems: (1) H/O hernia repair Status: Chronic (2) History of cataract extraction Status: Chronic (3) History of cataract surgery Status: Chronic (4) Hx of four vessel coronary artery bypass graft Permanent Comment: 01/30/18 at [facility] Status: Chronic (5) Hx of prior ablation treatment Permanent Comment: 12/09/17 Status: Chronic Family History FH: CABG (coronary artery bypass surgery) FH: HTN (hypertension) FH: cancer FH: cirrhosis MOTHER FH: lung cancer FATHER Social History Smoking Status: Former Smoker (quit 10/29 for 30 years, pipe smoker) Smokeless Tobacco Use: No Alcohol Use: daily Drug Use: none Marital Status: single Housing status: lives alone 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[employer]) Immunizations History of Influenza Vaccine: Yes Influenza Vaccine Date: Aug 20, 2017 History of Tetanus Vaccine?: Yes Tetanus Immunization Date: Aug 30, 2017 History of Pneumococcal: Yes Pneumococcal Date: Sep 27, 2015 Allergies Coded Allergies: No Known Allergies (Unverified , 06/22/18) Home Medications Scheduled Amiodarone HCl (Amiodarone HCl), 400 MG PO BID Aspirin (Aspirin Chewable), 81 MG PO DAILY Atorvastatin (Lipitor), 40 MG PO HS Calcium/Vitamin D (Os-Don 500 Plus D), 2 TAB PO DAILY Colchicine (Colchicine), 0.6 MG PO BID Esomeprazole Magnesium (Nexium), 40 MG PO DAILY Furosemide (Lasix), 20 MG PO DAILY Gabapentin (Neurontin), 300 MG PO BID Lisinopril (Prinivil), 2.5 MG PO DAILY Magnesium Oxide (Mag-Ox), 400 MG PO DAILY Metoprolol Succinate (Toprol Xl), 25 MG PO BID Prednisone (Prednisone), 3 TAB PO DAILY Risedronate Sod (Actonel), 35 MG PO WK Tamsulosin Hcl (Flomax), 0.8 MG PO QPM Triamcinolone Acet (Aristocort 0.1%), DIRECTED Scheduled PRN Lorazepam (Ativan), 0.5 MG PO Q6H PRN for Anxiety Tramadol (Ultram), 50 MG PO Q8H PRN for Pain Review of Systems As noted per HPI, 10 systems reviewed and negative unless noted above. Physical Exam Vital Signs Date Time Temp Pulse Resp B/P (MAP) Pulse Ox O2 Delivery O2 Flow Rate FiO2 06/20/18 11:30 69 22 104/57 100 Room Air 06/20/18 10:52 98 Room Air 06/20/18 10:41 72 18 128/60 98 Room Air 06/20/18 09:45 97 Nasal Cannula 2.0 06/20/18 09:42 78 20 112/66 97 Room Air 06/20/18 09:36 158 06/20/18 09:33 137 06/20/18 09:10 97 06/20/18 09:10 92 Room Air 06/20/18 08:57 36.4 181 20 121/70 General Appearance: WD/WN, no apparent distress (Male, sitting up in bed, conversing at ease) Head: normocephalic, atraumatic Eyes: normal inspection, PERRL, EOMI, sclerae normal ENT: normal ENT inspection, hearing grossly normal, + pertinent finding ( Mucous membranes moist) Neck: supple, no adenopathy, thyroid normal, no JVD Respiratory/Chest: chest non-tender, lungs clear, normal breath sounds, no respiratory distress, no accessory muscle use Cardiovascular: regular rate, rhythm (With frequent ectopic beats), no edema, no gallop, no JVD, no murmur, normal peripheral pulses Abdomen/GI: normal bowel sounds, non tender, soft, no organomegaly Back: normal inspection, no muscle spasm Extremities/Musculoskelatal: normal inspection, no calf tenderness, normal capillary refill, no pedal edema Neurologic/Psych: alert, normal mood/affect, oriented x 3 Skin: warm/dry, no rash, + pertinent finding (Slightly hyperpigmented) Diagnostics Laboratory Results Results Past 24 Hours Test 06/20/18 09:05 06/20/18 09:06 06/20/18 09:09 06/20/18 11:25 Range/Units White Blood Count 9.05 4.8-10.8 K/uL Red Blood Count 4.96 4.7-6.1 M/uL Hemoglobin 14.6 14.0-18.0 g/dL Hematocrit 43.5 42-52 % Mean Corpuscular Volume 87.7 80-100 fL Mean Corpuscular Hemoglobin 29.4 25-34 pg Mean Corpuscular Hemoglobin Concent 33.6 32-36 g/dl Platelet Count 274 130-400 K/uL Mean Platelet Volume 9.9 7.4-10.4 fL Neutrophils (%) (Auto) 55.1 % Lymphocytes (%) (Auto) 37.3 % Monocytes (%) (Auto) 5.1 % Eosinophils (%) (Auto) 1.4 % Basophils (%) (Auto) 0.1 % Neutrophils # (Auto) 4.98 1.4-6.5 K/uL Lymphocytes # (Auto) 3.38 1.2-3.4 K/uL Monocytes # (Auto) 0.46 0.11-0.59 K/uL Eosinophils # (Auto) 0.13 0-0.5 K/uL Basophils # (Auto) 0.01 0-0.2 K/uL RDW Standard Deviation 47.4 36.4-46.3 fL RDW Coefficient of Variation 14.7 11.5-14.5 % Immature Granulocyte % (Auto) 1.0 % Immature Granulocyte # (Auto) 0.09 0.00-0.02 K/uL Spherocytes 1+ Prothrombin Time 10.0 9.0-12.0 SECONDS Prothromb Time International Ratio 1.0 0.9-1.1 Activated Partial Thromboplast Time 28.0 21.0-31.0 SECONDS Partial Thromboplastin Ratio 1.1 Sodium Level 135 136-145 mmol/L Potassium Level 3.8 3.5-5.1 mmol/L Chloride Level 102 98-107 mmol/L Carbon Dioxide Level 25 21-32 mmol/L Anion Gap 8.0 20.0 16-25 mmol/L Blood Urea Nitrogen 21 7-18 mg/dl Creatinine 1.40 0.60-1.40 mg/dl Est Creatinine Clear Calc Drug Dose 52.8 ml/min Estimated GFR () 55.8 Estimated GFR (Non- 48.1 BUN/Creatinine Ratio 15.0 10-20 Random Glucose 165 70-99 mg/dl Calcium Level 8.4 8.5-10.1 mg/dl Magnesium Level 2.0 1.8-2.4 mg/dl Total Bilirubin 0.8 0.2-1 mg/dl Direct Bilirubin 0.2 0-0.2 mg/dl Aspartate Amino Transf (AST/SGOT) 19 15-37 U/L Alanine Aminotransferase (ALT/SGPT) 42 12-78 U/L Alkaline Phosphatase 72 45-117 U/L Total Creatine Kinase 178 39-308 U/L Creatine Kinase MB 3.0 0.5-3.6 ng/ml Creatine Kinase MB Ratio 1.7 0-3.0 Troponin I < 0.015 0-0.045 ng/ml Total Protein 8.0 6.4-8.2 gm/dl Albumin 3.3 3.4-5.0 gm/dl Thyroid Stimulating Hormone (TSH) 1.180 0.300-4.500 uIu/ml Bedside Troponin I < 0.030 0-0.045 ng/ml Bedside Hemoglobin 14.6 14.0-18.0 g/dl Bedside Hematocrit 43 42-52 % Bedside Sodium 138 135-144 mEq/L Bedside Potassium 3.9 3.3-5.0 mEq/L Bedside Chloride 99 101-112 mEq/L Bedside Total CO2 24 24-31 mEq/l Bedside Blood Urea Nitrogen 21 7-18 mg/dl Bedside Creatinine 1.2 0.6-1.3 mg/dl Bedside Glucose (other) 176 70-99 mg/dl Bedside Ionized Calcium (Geovanni) 1.12 1.12-1.32 mmol/l Test 06/20/18 11:36 Range/Units Microbiology Results 06/20/18 Blood Culture, Received Pending 06/20/18 Blood Culture, Received Pending CXR normal (Probable atelectasis) EKG Multiple EKGs done 1 noting possible supraventricular tachycardia however read as atrial fibrillation with heart rate of 140 bpm, non-specific ST abnormality 1 during sinus rhythm with frequent PACs heart rate [address], [address] abdomen Impression Assessment and Plan This is a 78-year-old male who has significant PMH CAD status post CABG 4 in 2017, PAF status post caval triscuspid isthmus ablation in 12/09/17, CKD 3, hypertension, HLD, PMR, HLA-B27, GERD, BPH who presents with fever, sweats, tachycardia and shortness of breath 3 days. In ED an EKG was noted to be in possible SVT. Was given 5 mg IV Lopressor which returned heart rate to normal however continue to have intermittent PAC/arrhythmia. Initial troponin was negative, BMP relatively unremarkable except hyperglycemia was 176, BUN 21, creatinine 1.2, ESR 45, CRP 11.9. Chest x-ray revealed possible atelectasis otherwise no acute abnormality. He is now being admitted for further observation of possible arrhythmia, etiology of syncope, r/o infectious etiology , echocardiogram to evaluate pericardium. ddx: arrhythmia, adrenal insufficiency, infectious etiology, pericarditis, pericardial effusion, vaso vagal syncope, neurogenic syncope Syncope Atrial Tachycardia SVT vs Afib Recurrent Pericarditis -Admit to med/surg telemetry -Consult Cardiology Dr. Nolan, appreciate his recommendations -Echo 2D to eval pericardium -Repeat Troponin at 1500 -Continue Metoprolol at increased dose per Dr. Nolan -continue prednisone 10mg and colchicine 0.6mg po bid. Prednisone is to complete on 06/22/18 -IV rocephin 1g daily until infectious etiology ruled out, await urine and blood culture -IVF NS 80cc/hr -orthostatic vital signs CAD s/p CABG x 4 -no active chest pain/sob -on ASA, Statin, JUN, BB -hold JUN for now secondary to hypotension Hx of PAF status post caval triscuspid isthmus ablation in 12/09/17 -Metoprolol increased to 25mg po bid -No need for anticoagulation at this time secondary to history of caval tricuspid isthmus ablation -cardiology on board -follow telemetry HTN -bp on low side. Hold Lasix and Lisinopril -continue metoprolol Hypergylcemia most likely steroid induced, no hx of T2DM or evidence of hyperglycemia in outpatient records -check accuchecks AC/HS, if continues to remain high would recommend adding sliding scale coverage with novolog -Check A1C in a.m. HLD -continue statin PMR/HLA B27 Spondylarthopathy -Routinely on prednisone 5 mg daily; however currently on 10 mg per taper secondary to pericarditis. -Prednisone on hold, IV hydrocortisone for possible adrenal insufficiency -ESR 45/CRP 11.9 -Consult rheumatology secondary to possible rheumatologic etiology of recurrent pericarditis GERD -continue PPI BPH -Continue flomax for now; however monitor if BP remains low would hold in setting of possible orthostatic hypotension Disposition Discharged to home when able ATTENDING ADDENDUM patient seen and examined by myself chart reviewed care coordinated with ALBARO Spencer agree with assessment and plan above delayed entry date of service as noted above care coordinated with ALBARO Spencer please refer to her notes for full details, I agree with her notes patient seen and examined, records reviewed by myself as well on exam, patient seen resting in bed, comfortable states he feels improved compared to admission remains in SR no chest pain, palpitations, dyspnea, dizziness denies myalgias and arthralgias no other symptoms VS noted and reviewed oriented x 2, not in distress, speaks in sentences with no effort nor accessory muscle use normal rate, regular rhythm, no murmurs clear breath sounds bilaterally non distended, soft, nontender no bipedal edema, erythema, warmth; no joint erythema/warmth/tenderness no neuro deficits WBC 9.05 Hg 14 Crea 1.4 ASSESSMENT/PLAN> Syncope Atrial Tachycardia SVT vs Afib Recurrent Pericarditis Metoprolol increased Cardiology consulted Prednisone continued Chills ff up cultures continue Ceftriaxone IV other diagnoses and plan of care as per ALBARO Spencer's notes Theron Dubose MD Advanced Directives Existing Living Will: No Existing Power of Line Builder: No Resuscitation Status Full Code Discussed with patient at bedside VTE Prophylaxis Will order VTE Prophylaxis: Yes (heparin)
[2018-06-20] MEDS: SODIUM CHLORIDE 0.9% 1000ML 1,000 ML IV SCH (15:36)
[2018-06-20 15:40] VITALS: BP_SYST 127; BP_SYST 133; BP_SYST 135; BP_DIAS 67; BP_DIAS 68; BP_DIAS 71; PULSE 74; PULSE 83; PULSE 86; TEMP 36.6; O2SAT 97
--- NOTE | 2018-06-20 16:05 | ECHOCARDIOGRAM REPORT ---
*NOTICE TO RECEIVING [employer] This information is strictly Confidential and protected under [place] law. [place] law prohibits you from making any further disclosure of this information unless further disclosure is expressly permitted by the written consent of the person to whom it pertains or is authorized by law. A general authorization for the release of medical or other information is not sufficient for this purpose. Hospital accepts no responsibility if the information is made available to any other person, INCLUDING THE PATIENT. Interpretation Summary * Name: CRISTINA RODARTE Study Date: 06/20/2018 02:55 PM BP: 131/75 mmHg * Patient Location: C.2T\S\S234\S\1 HR: 83 * : 1940 (M/d/yyyy) Gender: Male Height: 75 in * Age: 78 yrs Ethnicity: CA Weight: 213 lb * Ordering Physician: Lloa Spencer * Referring Physician: Self, Referred * Performed By: Gabi Groves RDCS * * Reason For Study: RECENT PERICARDITIS * BSA: 2.3 m2 * -- Conclusions -- * Limited study to assess pericardium. * Unchange compared to previous study of 05/11/18. * The pericardium appears mildly thickened. * There is no pericardial effusion. Procedure Details * Pericardium/Pleural The pericardium appears mildly thickened. There is no pericardial effusion. *
[2018-06-20] MEDS: CEFTRIAXONE SOD INJ 1 GM in DEXTROSE 5% ADD-VANTAGE 50ML 50 ML IV SCH (16:47)
--- NOTE | 2018-06-20 17:29 | EMERGENCY ROOM VISIT NOTE ---
History Report prepared by Abdiaziz: Petra Michaud Under the Supervision of: Dr. Woody Larios M.D. First contact with patient: 09:05 Chief Complaint: PALPITATIONS Stated Complaint: HEART RATE History of Present Illness The patient is a 78 year old male who presents to the Emergency Room with complaints of an episode of palpitations that onset today. He notes that he had a fever yesterday, for which he called his PCP about. He notes that they were worried about the possibility of an UTI from a catheter that was placed in January during a CABG surgery. He states that he was prescribed and antibiotic by his PCP. The patient notes that when he woke up this morning he did not feel good, felt weak, and had heart palpitations. He notes that his Apple Watch read that his heart rate was 180 beats per minute. The patient states that he then called his neighbor, got dressed, and was driven to the hospital. The patient had an episode of syncope upon presentation to the ED. After getting into bed he came around. The patient complains of chest pain, shortness of breath, irregular heart beat, feeling clammy, and syncope. Pt denies headache, fevers, chills, visual changes, dizziness, neck pain, tearing pain radiating to the back , personal history or family history of aneurysm or pulmonary embolism, uncontrolled hypertension, leg swelling, coagulation abnormalities, prolonged travel, recent surgery or immobilization, nausea, vomiting, abdominal pain, melena, hematochezia, numbness, lymphadenopathy, rash, or other complaints. The patient notes that he has a history of atrial fibrillation and coronary artery disease. He states that he had an ablation and a quad coronary artery bypass graft completed. He notes that he did not take his medications this morning. Source of History: patient Onset: Today Position: chest Associated Symptoms: + LOC, + fevers, + diaphoresis, + chest pain, + SOB, + weakness Note: The patient complains of heart palpitations. Review of Systems See HPI for pertinent positives and negatives. A total of ten systems were reviewed and were otherwise negative. Past Medical & Surgical Medical Problems: (1) BPH (benign prostatic hyperplasia) (2) CKD (chronic kidney disease), stage III (3) Coronary artery disease (4) Dyslipidemia (5) GERD (gastroesophageal reflux disease) (6) HLA-B27 spondyloarthropathy (7) HTN (hypertension) (8) Lichen planus (9) Osteoarthritis (10) Osteoporosis (11) Polymyalgia rheumatica Surgical Problems: (1) H/O hernia repair (2) History of cataract extraction (3) History of cataract surgery (4) Hx of four vessel coronary artery bypass graft (5) Hx of prior ablation treatment Family History FH: CABG (coronary artery bypass surgery) FH: HTN (hypertension) FH: cancer FH: cirrhosis MOTHER FH: lung cancer FATHER Social History Smoking Status: Never Smoker Drug Use: none Marital Status: single Occupation Status: unemployed Current/Historical Medications Scheduled Aspirin (Aspirin Chewable), 81 MG PO DAILY Atorvastatin (Lipitor), 40 MG PO HS Calcium/Vitamin D (Os-Don 500 Plus D), 2 TAB PO DAILY Ciprofloxacin HCl (Ciprofloxacin), 500 MG PO Q12H Colchicine (Colchicine), 0.6 MG PO BID Esomeprazole Magnesium (Nexium), 40 MG PO DAILY Furosemide (Lasix), 20 MG PO DAILY Gabapentin (Neurontin), 300 MG PO BID Lisinopril (Prinivil), 5 MG PO DAILY Magnesium Oxide (Mag-Ox), 400 MG PO DAILY Metoprolol Succinate (Toprol Xl), 25 MG PO DAILY Prednisone (Prednisone), 5 MG PO DAILY Prednisone (Prednisone), 10 MG PO DAILY Risedronate Sod (Actonel), 35 MG PO WK Tamsulosin Hcl (Flomax), 0.8 MG PO QPM Triamcinolone Acet (Aristocort 0.1%), DIRECTED Scheduled PRN Lorazepam (Ativan), 0.5 MG PO Q6H PRN for Anxiety Tramadol (Ultram), 50 MG PO Q8H PRN for Pain Allergies Coded Allergies: No Known Allergies (Unverified , 05/11/18) Physical Exam Vital Signs Date Time Temp Pulse Resp B/P (MAP) Pulse Ox O2 Delivery O2 Flow Rate FiO2 06/20/18 10:52 98 Room Air 06/20/18 10:41 72 18 128/60 98 Room Air 06/20/18 09:45 97 Nasal Cannula 2.0 06/20/18 09:42 78 20 112/66 97 Room Air 06/20/18 09:36 158 06/20/18 09:33 137 06/20/18 09:10 97 06/20/18 09:10 92 Room Air 06/20/18 08:57 36.4 181 20 121/70 Physical Exam GENERAL: Awake, alert, ill-appearing, uncomfortable appearing. HENT: Normocephalic, atraumatic. Oropharynx unremarkable. EYES: Normal conjunctiva. Sclera non-icteric. NECK: Supple. No nuchal rigidity. FROM. No masses. RESPIRATORY: Clear to auscultation. No wheezes. No rales. Normal respiratory effort. CARDIAC: Irregular. Tachycardic. No murmurs. No rubs. Extremities warm and well perfused. Pulses equal. No JVD. GI: Soft, non-distended. No tenderness to palpation. No rebound or guarding. No masses. RECTAL: Deferred. MUSCULOSKELETAL: Atraumatic. Chest examination reveals no tenderness. The back is symmetrical on inspection without obvious abnormality. There is no CVA tenderness to palpation. No joint edema. LOWER EXTREMITIES: Calves are equal size bilaterally and non-tender. No edema. No discoloration. NEURO: Normal sensorium. No sensory or motor deficits noted. SKIN: No rash or jaundice noted. Medical Decision & Procedures ER Provider Diagnostic Interpretation: Radiology results as stated below per my review and radiologist interpretation: CHEST ONE VIEW PORTABLE CLINICAL HISTORY: irregular hr COMPARISON STUDY: Chest radiograph and chest CT May 11, 2018. FINDINGS: Note is made of median sternotomy wires. Cardiomegaly is unchanged. There is no evidence for pulmonary edema. Linear bibasilar opacities favor atelectasis. There is no consolidation to suggest pneumonia. IMPRESSION: No acute cardiopulmonary findings. No change in appearance of the chest. Electronically signed by: Kishor Lew M.D. 06/20/2018 9:21 AM Dictated Date/Time: 06/20/2018 9:19 AM Laboratory Results 06/20/18 09:05 Red Blood Count 4.96, Mean Corpuscular Volume 87.7, Mean Corpuscular Hemoglobin 29.4, Mean Corpuscular Hemoglobin Concent 33.6, Mean Platelet Volume 9.9, Neutrophils (%) (Auto) 55.1, Lymphocytes (%) (Auto) 37.3, Monocytes (%) (Auto) 5.1, Eosinophils (%) (Auto) 1.4, Basophils (%) (Auto) 0.1, Neutrophils # (Auto) 4.98, Lymphocytes # (Auto) 3.38, Monocytes # (Auto) 0.46, Eosinophils # (Auto) 0.13, Basophils # (Auto) 0.01 06/20/18 09:05 Test 06/20/18 09:05 06/20/18 09:06 06/20/18 09:09 06/20/18 11:25 White Blood Count 9.05 K/uL (4.8-10.8) Red Blood Count 4.96 M/uL (4.7-6.1) Hemoglobin 14.6 g/dL (14.0-18.0) Hematocrit 43.5 % (42-52) Mean Corpuscular Volume 87.7 fL (80-100) Mean Corpuscular Hemoglobin 29.4 pg (25-34) Mean Corpuscular Hemoglobin Concent 33.6 g/dl (32-36) Platelet Count 274 K/uL (130-400) Mean Platelet Volume 9.9 fL (7.4-10.4) Neutrophils (%) (Auto) 55.1 % Lymphocytes (%) (Auto) 37.3 % Monocytes (%) (Auto) 5.1 % Eosinophils (%) (Auto) 1.4 % Basophils (%) (Auto) 0.1 % Neutrophils # (Auto) 4.98 K/uL (1.4-6.5) Lymphocytes # (Auto) 3.38 K/uL (1.2-3.4) Monocytes # (Auto) 0.46 K/uL (0.11-0.59) Eosinophils # (Auto) 0.13 K/uL (0-0.5) Basophils # (Auto) 0.01 K/uL (0-0.2) RDW Standard Deviation 47.4 fL (36.4-46.3) RDW Coefficient of Variation 14.7 % (11.5-14.5) Immature Granulocyte % (Auto) 1.0 % Immature Granulocyte # (Auto) 0.09 K/uL (0.00-0.02) Spherocytes 1+ Erythrocyte Sedimentation Rate 45 mm/hr (0-14) Prothrombin Time 10.0 SECONDS (9.0-12.0) Prothromb Time International Ratio 1.0 (0.9-1.1) Activated Partial Thromboplast Time 28.0 SECONDS (21.0-31.0) Partial Thromboplastin Ratio 1.1 Est Creatinine Clear Calc Drug Dose 52.8 ml/min Estimated GFR () 55.8 Estimated GFR (Non- 48.1 BUN/Creatinine Ratio 15.0 (10-20) Calcium Level 8.4 mg/dl (8.5-10.1) Magnesium Level 2.0 mg/dl (1.8-2.4) Total Bilirubin 0.8 mg/dl (0.2-1) Direct Bilirubin 0.2 mg/dl (0-0.2) Aspartate Amino Transf (AST/SGOT) 19 U/L (15-37) Alanine Aminotransferase (ALT/SGPT) 42 U/L (12-78) Alkaline Phosphatase 72 U/L (45-117) Total Creatine Kinase 178 U/L (39-308) Creatine Kinase MB 3.0 ng/ml (0.5-3.6) Creatine Kinase MB Ratio 1.7 (0-3.0) C-Reactive Protein 11.90 mg/dl (0-0.29) Total Protein 8.0 gm/dl (6.4-8.2) Albumin 3.3 gm/dl (3.4-5.0) Thyroid Stimulating Hormone (TSH) 1.180 uIu/ml (0.300-4.500) Bedside Troponin I < 0.030 ng/ml (0-0.045) Bedside Hemoglobin 14.6 g/dl (14.0-18.0) Bedside Hematocrit 43 % (42-52) Bedside Sodium 138 mEq/L (135-144) Bedside Potassium 3.9 mEq/L (3.3-5.0) Bedside Chloride 99 mEq/L (101-112) Bedside Total CO2 24 mEq/l (24-31) Anion Gap 20.0 mmol/L (16-25) Bedside Blood Urea Nitrogen 21 mg/dl (7-18) Bedside Creatinine 1.2 mg/dl (0.6-1.3) Bedside Glucose (other) 176 mg/dl (70-99) Bedside Ionized Calcium (Geovanni) 1.12 mmol/l (1.12-1.32) Lyme Disease IgG Antibody NEG (NEG) Lyme Disease IgM Antibody NEG (NEG) Laboratory results reviewed by me Medications Administered Medications (Trade) Dose Ordered Sig/Beverley Route Start Time Stop Time Status Last Admin Dose Admin Sodium Chloride 1,000 ml @ 125 mls/hr Q8H STAT IV 06/20/18 09:20 8/24/18 14:27 DC 06/20/18 09:36 125 MLS/HR Metoprolol Tartrate (Lopressor Iv) 5 mg NOW STAT IV 06/20/18 09:20 06/20/18 09:23 DC 06/20/18 09:36 5 MG Sodium Chloride 1,000 ml @ 100 mls/hr Q10H IV 06/20/18 11:20 07/20/18 11:19 06/20/18 15:36 100 MLS/HR ECG Per My Interpretation Indication: syncope Rate (beats per minute): 100 Rhythm: sinus rhythm Findings: PAC, PVC, other (Left axis incomplete, RBBB non specific, no ST Segment elevation. ) Change: EKG 2 Indication: Tachycardia Rate: 97 Rhythm: Sinus Rhythm Findings: Left axis incomplete, RBBB non specific, No ST elevations. Comparison: No change from pervious EKG. EKG 3 Indication: Tachycardia Rate: 140 Rhythm: Atrial fibrillation Findings: Left axis incomplete, RBBB non specific. EKG 4 Indication: tachycardia Rate: 71 Rhythm: normal sinus rhythm Findings: PAC, left axis incomplete, no ST elevation or depression. Comparison: Change in rhythm EKG 5 Indication: Change in rhythm Rate: 75 Rhythm: Sinus rhythm Findings: PAC, incomplete RBBB, no ST segment elevation or depression. ED Course 904: The patient was evaluated in room B02. A complete history and physical exam was performed. A code blue was called upon his arrival to the room. 0920: Ordered Lopressor IV 5m g IV, Sodium Chloride 1,000 ml @ 125 mls/hr IV. 1030: Discussed the patient's case with HARPREET Kaur. The patient will be evaluated for further treatment and disposition. Medical Decision Prior records/ancillary studies reviewed. Triage Nursing notes reviewed and agree them. Additional history obtained from the family. The patient's history was concerning for palpitations and syncope. Differential diagnosis: Etiologies such as electrolyte abnormality, cardiac dysrhythmia, thyroid dysfunction, pulmonary embolism, infection, gastrointestinal, as well as others were entertained. Physical examination: As above. Upon presentation to the examination room the patient was unconscious and unresponsive. A CODE BLUE called. The patient was moved to the stretcher. Upon lying him supine he began to respond. CPR was not initiated. CODE BLUE was canceled. Noted tachycardic with an irregular heartbeat. ER treatment provided: Cardiac monitoring. IV metoprolol 5 mg which resulted in good rate control. Normal saline hydration On reassessment the patient felt better. Diagnostic interpretation by me: The electrocardiogram was concerning for paroxysmal rapid atrial fibrillation The labs revealed an unremarkable CBC and chemistry panel. Cardiac negative. Urinalysis negative. Imaging studies: Chest x-ray as above. Consultation: A consultation was placed with the hospitalist. The case was discussed and diagnostics were reviewed. The patient was evaluated in the ER for further treatment. Medication Reconcilliation Current Medication List: was personally reviewed by me Blood Pressure Screening Patient's blood pressure: Elevated blood pressure Blood pressure disposition: Referred to PCP (Referred to Hospitalist) Consults Time Called: 1029 Consulting Physician: HARPREET Kaur Returned Call: [phone]: Discussed the patient's case with HARPREET Kaur. The patient will be evaluated for further treatment and disposition. Impression Primary Impression: Atrial fibrillation with RVR Additional Impression: Syncope Critical Care I have personally spent greater than 30 minutes of critical care time in the direct management of this patient. This includes bedside care, interpretation of diagnostic studies, and testing, discussion with consultants, patient, and family members, and other required patient management activities. This 30 minutes is in excess of all separately billable procedures. Scribe Attestation The scribe's documentation has been prepared under my direction and personally reviewed by me in its entirety. I confirm that the note above accurately reflects all work, treatment, procedures, and medical decision making performed by me. Departure Information Dispostion Transfer Acute Care Facility Referrals Nikita Brady MD (PCP) Forms HOME CARE DOCUMENTATION FORM, IMPORTANT VISIT INFORMATION, WORK / SCHOOL INSTRUCTIONS Patient Instructions My [facility] Problem Qualifiers
[2018-06-20] MEDS ORDERED: HYDROCORTISONE IV 50 MG in SYRINGE 0 ML IV SCH (18:30)
[2018-06-20 19:11] VITALS: BP 150/76; PULSE 83; TEMP 36.7; O2SAT 98
[2018-06-20] MEDS: METOPROLOL SUCC 25MG EXT REL TAB PO SCH (21:27)
[2018-06-20] MEDS: TAMSULOSIN HCL 0.4 MG CAP PO SCH (21:28)
[2018-06-20] MEDS: ATORVASTATIN 40 MG TAB PO SCH (21:28)
[2018-06-20] MEDS: COLCHICINE 0.6 MG TAB PO SCH (21:28)
[2018-06-20] MEDS: GABAPENTIN 300 MG CAP PO SCH (21:28)
[2018-06-20] MEDS: HEPARIN SOD 5000 UNIT/0.5 ML CARP SQ SCH (21:30)
[2018-06-20 23:26] VITALS: BP 135/71; PULSE 83; TEMP 37.3; O2SAT 93
[2018-06-21] VITALS (8 sets, daily range): BP systolic 110–150; BP diastolic 64–77; PULSE 68–90; TEMP 36.8–37.4; O2SAT 94–96
[2018-06-21] MEDS: SODIUM CHLORIDE 0.9% 1000ML 1,000 ML IV SCH ×2 (01:15→11:42)
[2018-06-21] MEDS: HEPARIN SOD 5000 UNIT/0.5 ML CARP SQ SCH ×3 (06:08→20:32)
[2018-06-21 06:32] LABS: HEMOGLOBIN A1C 6.1 % (4.5-5.6)
[2018-06-21 07:52] LABS: ALBUMIN 2.5 gm/dl (3.4-5.0); CALCIUM 8.1 mg/dl (8.5-10.1); CREATININE 0.83 mg/dl (0.60-1.40); POTASSIUM 3.6 mmol/L (3.5-5.1)
[2018-06-21 07:55] LABS: TOTAL PROTEIN 6.1 gm/dl (6.4-8.2)
[2018-06-21 08:18] LABS: HEMATOCRIT 34.2 % (42-52); HEMOGLOBIN 11.3 g/dL (14.0-18.0); MEAN CELL VOLUME 87.2 fL (80-100); MEAN CORPUSCULAR HEMOGLOBIN 28.8 pg (25-34); MEAN PLATELET VOLUME 9.7 fL (7.4-10.4); PLATELET COUNT 246 K/uL (130-400); RED CELL DISTRIBUTION WIDTH CV 14.9 % (11.5-14.5); RED CELL DISTRIBUTION WIDTH SD 47.6 fL (36.4-46.3); WHITE BLOOD COUNT 6.45 K/uL (4.8-10.8)
--- NOTE | 2018-06-21 08:37 | Rheumatology Consultation ---
Rheumatology Consultation Date of Consultation: Jun 21, 2018. Requesting Physician: Dr Dubose Attending Physician: Dr Dubose Reason for Consultation: recurrent pericarditis, HLA B27+, PMR, chronic steroid use History of Present Illness Mr Anson Marie is well known to me. I treat him for long standing osteoarthritis, PMR, HLA B27+ on chronic low dose prednisone and steroid induced osteoporosis. More recently he was dealing with worsening lumbar DDD that was getting better with PT. He reports that in late March, early April he traveled to [place] and on the way there he did not feel right. + fatigue. H e started to get sick as well thought maybe something he ate but no vomiting or diarrhea. the following day he had aching in his shoulders, had fevers, sweats, fatigue - went to a local hospital and was diagnosed with pericarditis (did not have chest pain). He was treated with ibuprofen with improvement. after being [place] he started to have recurrent symptoms and came to [facility]. was started on prednisone and colchicine for recurrent pericarditis symptoms and got better. this past week he started not to feel well again - fatigue, fevers, sweats, weakness, diffuse aching. on he saw his PCP Dr Brady for dysuria (which has been ongoing for some time) and was given cipro. he only took one dose of cipro because yesterday morning he woke up with drenching night sweats, feeling weak. noted HR was 180 on his apple watch. tried resting but then noted HR was going from 50-170. was brought to [facility] ED - had a syncopal episode and SVT - He is now doing better. echo showed no pericardial fluid but thicken pericardium. ESR was 45, CRP 11, no anemia, PLT count good. Urine culture from Dr Brady's office was normal. his pred was continued at 10mg daily with colchicine. CXR was good, cultures pending. Today he feels a little tired form being her, little depressed. alcantara snot like being at the hospital. no chest pain, no N,V,D. No sweats. no recurrent tachycardial. joints doing well. no synovitis. hoping to go home soon. He has never been on DMARDs, just prednisone. Past Medical/Surgical History Medical History: arthritis (lumbar ddd), coronary artery disease, osteoporosis , other (HLA B27+, lichen planus, PMR) Surgical History: cardiac catheterization, coronary bypass surgery Family History non contributory Social History Smoking Status: Never Smoker History of Alcohol Use: No Drug Use: none Marital Status: single Housing Status: lives alone Occupation Status: unemployed Review of Systems Constitutional: + fever, + chills, + sweats, + weakness, + fatigue Eyes: No eye pain, No redness Respiratory: + shortness of breath Cardiac: + palpitations Abdomen: + see HPI Musculoskeletal: + see HPI Male : + dysuria Neurologic: + weakness Psychiatric: + depression symptoms All Other Systems: Reviewed and Negative Allergies Coded Allergies: No Known Allergies (Unverified , 05/11/18) Medications Current Inpatient Medications Medications (Trade) Dose Ordered Sig/Beverley Route Start Time Stop Time Status Last Admin Dose Admin Sodium Chloride 1,000 ml @ 100 mls/hr Q10H IV 06/20/18 11:20 07/20/18 11:19 06/21/18 01:15 100 MLS/HR Acetaminophen (Tylenol Tab) 650 mg Q4H PRN PO 06/20/18 11:30 07/20/18 11:29 Aspirin (Aspirin Chew) 81 mg DAILY PO 06/21/18 09:00 07/21/18 08:59 Atorvastatin Calcium (Lipitor Tab) 40 mg HS PO 06/20/18 21:00 07/20/18 20:59 06/20/18 21:28 40 MG Calcium/Vitamin D (Caltrate Plus Tab) 2 tab DAILY PO 06/21/18 09:00 07/21/18 08:59 Colchicine (Colchicine Tab) 0.6 mg BID PO 06/20/18 21:00 07/20/18 20:59 06/20/18 21:28 0.6 MG Gabapentin (Neurontin Cap) 300 mg BID PO 06/20/18 21:00 07/20/18 20:59 06/20/18 21:28 300 MG Magnesium Oxide (Mag-Ox Tab) 400 mg DAILY PO 06/21/18 09:00 07/21/18 08:59 Tamsulosin HCl (Flomax Cap) 0.8 mg QPM PO 06/20/18 21:00 07/20/18 20:59 06/20/18 21:28 0.8 MG Pantoprazole Sodium (Protonix Tab) 40 mg DAILY PO 06/21/18 09:00 07/21/18 08:59 Metoprolol Succinate (Toprol Xl Tab) 25 mg BID PO 06/20/18 21:00 07/21/18 08:59 06/20/18 21:27 25 MG Metoprolol Tartrate (Lopressor Tab) 25 mg ONE PO 06/20/18 13:15 07/20/18 13:14 Ceftriaxone Sodium 1 gm/ Dextrose 50 ml @ 100 mls/hr Q24H IV 06/20/18 16:00 06/22/18 15:59 06/20/18 16:47 100 MLS/HR Prednisone (PredniSONE TAB) 10 mg DAILY PO 06/21/18 09:00 07/21/18 08:59 Heparin Sodium (Porcine) (Heparin Sq 5000 Unit/0.5ml) 5,000 unit Q8 SQ 06/20/18 22:00 07/20/18 21:59 06/21/18 06:08 5,000 UNIT Physical Exam Date Time Temp Pulse Resp B/P (MAP) Pulse Ox O2 Delivery O2 Flow Rate FiO2 06/21/18 07:48 37.4 74 19 150/75 (100) 95 Room Air 83 136/70 (92) 86 111/64 (80) 06/21/18 03:09 90 110/66 (81) 06/21/18 03:08 81 146/74 (98) 06/21/18 03:07 37.0 83 17 137/73 (94) 94 Room Air 06/20/18 23:26 37.3 83 18 135/71 (92) 93 Room Air 06/20/18 20:00 Room Air 06/20/18 19:11 36.7 83 20 150/76 (100) 98 Room Air 06/20/18 15:40 36.6 74 20 127/71 (89) 97 Room Air 86 133/68 (89) 83 135/67 (89) 06/20/18 13:50 37.1 81 18 131/75 (93) 97 Room Air 06/20/18 13:50 Room Air 06/20/18 13:38 79 126/62 96 Room Air 06/20/18 13:02 89 20 06/20/18 13:01 121/65 06/20/18 12:57 91 18 06/20/18 12:33 93 22 06/20/18 12:30 140/65 06/20/18 12:28 87 21 06/20/18 12:01 125/73 06/20/18 11:58 55 17 98 Room Air 06/20/18 11:30 69 22 104/57 100 Room Air 06/20/18 10:52 98 Room Air 06/20/18 10:41 72 18 128/60 98 Room Air 06/20/18 09:45 97 Nasal Cannula 2.0 06/20/18 09:42 78 20 112/66 97 Room Air 06/20/18 09:36 158 06/20/18 09:33 137 06/20/18 09:10 97 06/20/18 09:10 92 Room Air 06/20/18 08:57 36.4 181 20 121/70 General Appearance: no apparent distress Eyes: bilateral eyes normal inspection, bilateral eyes EOMI ENT: normal ENT inspection, hearing grossly normal, pharynx normal Respiratory: chest non-tender, lungs clear, normal breath sounds, no respiratory distress Cardiovascular: regular rate, rhythm, no gallop, no murmur Abdomen: normal bowel sounds, non tender, soft Musculoskeletal: No synovitis or dactylitis no pain over lower lumbar paraspinal muscles Skin: normal color, warm/dry, no rash Laboratory Results Last 24 Hours Test 06/20/18 09:05 06/20/18 09:06 06/20/18 09:09 06/20/18 11:25 White Blood Count 9.05 K/uL Red Blood Count 4.96 M/uL Hemoglobin 14.6 g/dL Hematocrit 43.5 % Mean Corpuscular Volume 87.7 fL Mean Corpuscular Hemoglobin 29.4 pg Mean Corpuscular Hemoglobin Concent 33.6 g/dl Platelet Count 274 K/uL Mean Platelet Volume 9.9 fL Neutrophils (%) (Auto) 55.1 % Lymphocytes (%) (Auto) 37.3 % Monocytes (%) (Auto) 5.1 % Eosinophils (%) (Auto) 1.4 % Basophils (%) (Auto) 0.1 % Neutrophils # (Auto) 4.98 K/uL Lymphocytes # (Auto) 3.38 K/uL Monocytes # (Auto) 0.46 K/uL Eosinophils # (Auto) 0.13 K/uL Basophils # (Auto) 0.01 K/uL RDW Standard Deviation 47.4 fL RDW Coefficient of Variation 14.7 % Immature Granulocyte % (Auto) 1.0 % Immature Granulocyte # (Auto) 0.09 K/uL Spherocytes 1+ Erythrocyte Sedimentation Rate 45 mm/hr Prothrombin Time 10.0 SECONDS Prothromb Time International Ratio 1.0 Activated Partial Thromboplast Time 28.0 SECONDS Partial Thromboplastin Ratio 1.1 Sodium Level 135 mmol/L Potassium Level 3.8 mmol/L Chloride Level 102 mmol/L Carbon Dioxide Level 25 mmol/L Anion Gap 8.0 mmol/L 20.0 mmol/L Blood Urea Nitrogen 21 mg/dl Creatinine 1.40 mg/dl Est Creatinine Clear Calc Drug Dose 52.8 ml/min Estimated GFR () 55.8 Estimated GFR (Non- 48.1 BUN/Creatinine Ratio 15.0 Random Glucose 165 mg/dl Estimated Average Glucose 128 mg/dl Hemoglobin A1c 6.1 % Calcium Level 8.4 mg/dl Magnesium Level 2.0 mg/dl Total Bilirubin 0.8 mg/dl Direct Bilirubin 0.2 mg/dl Aspartate Amino Transf (AST/SGOT) 19 U/L Alanine Aminotransferase (ALT/SGPT) 42 U/L Alkaline Phosphatase 72 U/L Total Creatine Kinase 178 U/L Creatine Kinase MB 3.0 ng/ml Creatine Kinase MB Ratio 1.7 Troponin I < 0.015 ng/ml C-Reactive Protein 11.90 mg/dl Total Protein 8.0 gm/dl Albumin 3.3 gm/dl Thyroid Stimulating Hormone (TSH) 1.180 uIu/ml Bedside Troponin I < 0.030 ng/ml Bedside Hemoglobin 14.6 g/dl Bedside Hematocrit 43 % Bedside Sodium 138 mEq/L Bedside Potassium 3.9 mEq/L Bedside Chloride 99 mEq/L Bedside Total CO2 24 mEq/l Bedside Blood Urea Nitrogen 21 mg/dl Bedside Creatinine 1.2 mg/dl Bedside Glucose (other) 176 mg/dl Bedside Ionized Calcium (Geovanni) 1.12 mmol/l Lyme Disease IgG Antibody NEG Lyme Disease IgM Antibody NEG Test 06/20/18 13:20 06/20/18 13:24 06/21/18 06:11 Urine Color YELLOW Urine Appearance CLEAR Urine pH 6.0 Urine Specific [place] 1.019 Urine Protein TRACE Urine Glucose (UA) NEG Urine Ketones NEG Urine Occult Blood NEG Urine Nitrite NEG Urine Bilirubin NEG Urine Urobilinogen NEG Urine Leukocyte Esterase NEG Urine WBC (Auto) 1-5 /hpf Urine RBC (Auto) 0-4 /hpf Urine Hyaline Casts (Auto) 1-5 /lpf Urine Epithelial Cells (Auto) 10-20 /lpf Urine Bacteria (Auto) NEG Troponin I < 0.015 ng/ml Sodium Level 137 mmol/L Potassium Level 3.6 mmol/L Chloride Level 105 mmol/L Carbon Dioxide Level 23 mmol/L Anion Gap 9.0 mmol/L Blood Urea Nitrogen 14 mg/dl Creatinine 0.83 mg/dl Est Creatinine Clear Calc Drug Dose 89.1 ml/min Estimated GFR () 98.4 Estimated GFR (Non- 84.9 BUN/Creatinine Ratio 16.5 Random Glucose 102 mg/dl Calcium Level 8.1 mg/dl Total Bilirubin 0.7 mg/dl Aspartate Amino Transf (AST/SGOT) 11 U/L Alanine Aminotransferase (ALT/SGPT) 30 U/L Alkaline Phosphatase 53 U/L Total Protein 6.1 gm/dl Albumin 2.5 gm/dl Globulin 3.6 gm/dl Albumin/Globulin Ratio 0.7 Assessment & Plan Assessment & Plan: Assessment: Mr Marie is a 78 y/o male with known HLA B27+, PMR and lichen planus on low dose pred 5mg a day with steroid induced osteoporosis who developed pericarditis in late March and has had 2 recurrent episodes in the last 1.5 months. He also developed SVT and syncopal episode yesterday. differential is viral pericarditis vs autoimmune process at this time. I wonder if started off as viral pericarditis but given his history has progressed to an autoimmune process. today is doing better. I discussed possible autoimmune process for his recurrent disease with the patient and would like to get autoimmune testing but since he is likely to go home otday or tomorrow can get it done as an outpatient. I also discussed with his primary hospital service as well - Dr Dubose. Plan: 1. will get autoimmune testing as an outpatient 2. taper pred to 5mg daily as scheduled 3. continue colchicine BID 4. may need to consider plaquenil 5. thank you for the consult and involving me in this patients care 6. he has an outpatient follow up with me in june already scheduled
[2018-06-21] MEDS: PANTOprazole SOD 40 MG TAB PO SCH (08:39)
[2018-06-21] MEDS: METOPROLOL SUCC 25MG EXT REL TAB PO SCH ×2 (08:40→20:30)
[2018-06-21] MEDS: ASPIRIN 81 MG CHEW PO SCH (08:40)
[2018-06-21] MEDS: COLCHICINE 0.6 MG TAB PO SCH ×2 (08:40→20:30)
[2018-06-21] MEDS: MAGNESIUM OXIDE 400 MG TAB PO SCH (08:40)
[2018-06-21] MEDS: CALCIUM 600MG + VIT D 400 IU TAB PO SCH (08:40)
[2018-06-21] MEDS: GABAPENTIN 300 MG CAP PO SCH ×2 (08:40→20:30)
--- NOTE | 2018-06-21 08:56 | Cardiology Follow-Up ---
Subjective Subjective Date of Service: Jun 21, 2018. Pt evaluation today including: conversation w/ patient, physical exam, chart review, lab review, review of studies, review of inpatient medication list Additional Details: The patient had an uneventful night. Last episode of SVT was yesterday afternoon. Rheumatology note is appreciated. At this point I would continue him on metoprolol. Continue with orthostatic blood pressure checks. Problem List Medical Problems: (1) Atrial fibrillation with RVR Status: Acute (2) Chest pain Status: Acute (3) Fever Status: Acute (4) Shoulder pain Status: Acute (5) Syncope Status: Acute Review of Systems Constitutional: + fever, + chills, + sweats, + weakness, + fatigue Eyes: No eye pain, No redness Respiratory: + shortness of breath Cardiac: + palpitations Abdomen: + see HPI Musculoskeletal: + see HPI Male : + dysuria Neurologic: + weakness Psychiatric: + depression symptoms Objective Vital Signs Last Vital Signs Documentation Date Time Temp Pulse Resp B/P (MAP) Pulse Ox O2 Delivery O2 Flow Rate FiO2 06/21/18 07:48 37.4 74 19 150/75 (100) 95 Room Air 83 136/70 (92) 86 111/64 (80) 06/20/18 09:45 2.0 Physical Exam: General Appearance: no apparent distress Eyes: bilateral eyes normal inspection, bilateral eyes EOMI ENT: normal ENT inspection, hearing grossly normal, pharynx normal Respiratory/Chest: chest non-tender, lungs clear, normal breath sounds, no respiratory distress Cardiovascular: regular rate, rhythm, no gallop, no murmur Abdomen: normal bowel sounds, non tender, soft Skin: normal color, warm/dry, no rash Assessment and Plan IMPRESSION: 1. Paroxysmal supraventricular tachycardia, possibly atrial fibrillation. 2. History of atrial flutter, status post ablation. 3. Coronary artery disease, status post CABG x4. 4. Recurrent pericarditis on slow prednisone taper. 5. History of polymyalgia rheumatica, on chronic steroids. 6. UTI 7. Syncope, probably multifactorial Recommendations: The patient will continue with the metoprolol for now. Currently his arrhythmias are stable. Echocardiogram indicates no worsening of his pericardial effusion. Rheumatology consult is appreciated.
[2018-06-21] MEDS ORDERED: LISINOPRIL 5 MG TAB PO SCH (09:00)
[2018-06-21] MEDS ORDERED: METOPROLOL SUCC 25MG EXT REL TAB PO SCH (09:00)
[2018-06-21] MEDS: CEFTRIAXONE SOD INJ 1 GM in DEXTROSE 5% ADD-VANTAGE 50ML 50 ML IV SCH (15:14)
--- NOTE | 2018-06-21 19:21 | Progress Note ---
Medicine Progress Note Date & Time of Visit: Jun 21, 2018 at 08:37. Subjective sitting up in bedside , comfortable in good spirits states he feels improved today no acute events overnight, SR, normal HR no chest pain, dyspnea, palpitations, dizziness ambulating with no problems no fever/chills, cough, abdominal pain, changes with BM or urination back pain improving, denies arthralgias/myalgias no other symptoms Objective Last 8 Hrs Date Time Temp Pulse Resp B/P (MAP) Pulse Ox O2 Delivery O2 Flow Rate FiO2 06/21/18 07:48 37.4 74 19 150/75 (100) 95 Room Air 83 136/70 (92) 86 111/64 (80) 06/21/18 03:09 90 110/66 (81) 06/21/18 03:08 81 146/74 (98) 06/21/18 03:07 37.0 83 17 137/73 (94) 94 Room Air Physical Exam: General- oriented x 3, not in distress, speaks in sentences with no effort Head- atraumatic Eyes- anicteric ENT- oropharynx clear Neck- supple, no JVD Lungs- clear to auscultation bilaterally Heart- regular rhythm; no murmur, normal rate Abdomen- normal bowel sounds, soft, nontender Extremities- no pretibial edema, no calf tenderness joints- no warmth/tenderness/erythema Neuro- alert, oriented x 3; no gross focal deficits Skin- warm & dry Laboratory Results: Last 24 Hours Test 06/20/18 09:05 06/20/18 09:06 06/20/18 09:09 06/20/18 11:25 White Blood Count 9.05 K/uL Red Blood Count 4.96 M/uL Hemoglobin 14.6 g/dL Hematocrit 43.5 % Mean Corpuscular Volume 87.7 fL Mean Corpuscular Hemoglobin 29.4 pg Mean Corpuscular Hemoglobin Concent 33.6 g/dl Platelet Count 274 K/uL Mean Platelet Volume 9.9 fL Neutrophils (%) (Auto) 55.1 % Lymphocytes (%) (Auto) 37.3 % Monocytes (%) (Auto) 5.1 % Eosinophils (%) (Auto) 1.4 % Basophils (%) (Auto) 0.1 % Neutrophils # (Auto) 4.98 K/uL Lymphocytes # (Auto) 3.38 K/uL Monocytes # (Auto) 0.46 K/uL Eosinophils # (Auto) 0.13 K/uL Basophils # (Auto) 0.01 K/uL RDW Standard Deviation 47.4 fL RDW Coefficient of Variation 14.7 % Immature Granulocyte % (Auto) 1.0 % Immature Granulocyte # (Auto) 0.09 K/uL Spherocytes 1+ Erythrocyte Sedimentation Rate 45 mm/hr Prothrombin Time 10.0 SECONDS Prothromb Time International Ratio 1.0 Activated Partial Thromboplast Time 28.0 SECONDS Partial Thromboplastin Ratio 1.1 Sodium Level 135 mmol/L Potassium Level 3.8 mmol/L Chloride Level 102 mmol/L Carbon Dioxide Level 25 mmol/L Anion Gap 8.0 mmol/L 20.0 mmol/L Blood Urea Nitrogen 21 mg/dl Creatinine 1.40 mg/dl Est Creatinine Clear Calc Drug Dose 52.8 ml/min Estimated GFR () 55.8 Estimated GFR (Non- 48.1 BUN/Creatinine Ratio 15.0 Random Glucose 165 mg/dl Estimated Average Glucose 128 mg/dl Hemoglobin A1c 6.1 % Calcium Level 8.4 mg/dl Magnesium Level 2.0 mg/dl Total Bilirubin 0.8 mg/dl Direct Bilirubin 0.2 mg/dl Aspartate Amino Transf (AST/SGOT) 19 U/L Alanine Aminotransferase (ALT/SGPT) 42 U/L Alkaline Phosphatase 72 U/L Total Creatine Kinase 178 U/L Creatine Kinase MB 3.0 ng/ml Creatine Kinase MB Ratio 1.7 Troponin I < 0.015 ng/ml C-Reactive Protein 11.90 mg/dl Total Protein 8.0 gm/dl Albumin 3.3 gm/dl Thyroid Stimulating Hormone (TSH) 1.180 uIu/ml Bedside Troponin I < 0.030 ng/ml Bedside Hemoglobin 14.6 g/dl Bedside Hematocrit 43 % Bedside Sodium 138 mEq/L Bedside Potassium 3.9 mEq/L Bedside Chloride 99 mEq/L Bedside Total CO2 24 mEq/l Bedside Blood Urea Nitrogen 21 mg/dl Bedside Creatinine 1.2 mg/dl Bedside Glucose (other) 176 mg/dl Bedside Ionized Calcium (Geovanni) 1.12 mmol/l Lyme Disease IgG Antibody NEG Lyme Disease IgM Antibody NEG Test 06/20/18 13:20 06/20/18 13:24 06/21/18 06:11 Urine Color YELLOW Urine Appearance CLEAR Urine pH 6.0 Urine Specific [place] 1.019 Urine Protein TRACE Urine Glucose (UA) NEG Urine Ketones NEG Urine Occult Blood NEG Urine Nitrite NEG Urine Bilirubin NEG Urine Urobilinogen NEG Urine Leukocyte Esterase NEG Urine WBC (Auto) 1-5 /hpf Urine RBC (Auto) 0-4 /hpf Urine Hyaline Casts (Auto) 1-5 /lpf Urine Epithelial Cells (Auto) 10-20 /lpf Urine Bacteria (Auto) NEG Troponin I < 0.015 ng/ml White Blood Count 6.45 K/uL Red Blood Count 3.92 M/uL Hemoglobin 11.3 g/dL Hematocrit 34.2 % Mean Corpuscular Volume 87.2 fL Mean Corpuscular Hemoglobin 28.8 pg Mean Corpuscular Hemoglobin Concent 33.0 g/dl RDW Standard Deviation 47.6 fL RDW Coefficient of Variation 14.9 % Platelet Count 246 K/uL Mean Platelet Volume 9.7 fL Sodium Level 137 mmol/L Potassium Level 3.6 mmol/L Chloride Level 105 mmol/L Carbon Dioxide Level 23 mmol/L Anion Gap 9.0 mmol/L Blood Urea Nitrogen 14 mg/dl Creatinine 0.83 mg/dl Est Creatinine Clear Calc Drug Dose 89.1 ml/min Estimated GFR () 98.4 Estimated GFR (Non- 84.9 BUN/Creatinine Ratio 16.5 Random Glucose 102 mg/dl Calcium Level 8.1 mg/dl Total Bilirubin 0.7 mg/dl Aspartate Amino Transf (AST/SGOT) 11 U/L Alanine Aminotransferase (ALT/SGPT) 30 U/L Alkaline Phosphatase 53 U/L Total Protein 6.1 gm/dl Albumin 2.5 gm/dl Globulin 3.6 gm/dl Albumin/Globulin Ratio 0.7 Date/Time Source Procedure Growth Status 06/20/18 09:43 Blood Blood Culture Pending Received 06/20/18 09:42 Blood Blood Culture Pending Received 06/21/18 03:15 Urine , Clean Catch Urine Culture Pending Received Assessment & Plan This is a 78-year-old male who has significant PMH CAD status post CABG 4 in 2017, PAF status post caval triscuspid isthmus ablation in 12/09/17, CKD 3, hypertension, HLD, PMR, HLA-B27, GERD, BPH who presents with fever, sweats, tachycardia and shortness of breath 3 days. In ED an EKG was noted to be in possible SVT. Was given 5 mg IV Lopressor which returned heart rate to normal however continue to have intermittent PAC/arrhythmia. Initial troponin was negative, BMP relatively unremarkable except hyperglycemia was 176, BUN 21, creatinine 1.2, ESR 45, CRP 11.9. Chest x-ray revealed possible atelectasis otherwise no acute abnormality. He is now being admitted for further observation of possible arrhythmia, etiology of syncope, r/o infectious etiology , echocardiogram to evaluate pericardium. ddx: arrhythmia, adrenal insufficiency, infectious etiology, pericarditis, pericardial effusion, vaso vagal syncope, neurogenic syncope Syncope Atrial Tachycardia SVT vs Afib Recurrent Pericarditis -Echo 2D: unchanged - Cardiology consulted Metoprolol XL increased to BID remained in SR, normal rate since last night - continue prednisone 10mg until 06/22/18, then resume usual Prednisone 5mg po daily continue colchicine 0.6mg po bid Chills -on chronic prednisone need to r/o underlying infection - urine and blood cultures pending - remains afebrile, clinically improving -IV rocephin 1g daily until infectious etiology ruled out -IVF NS 60cc/hr CAD s/p CABG x 4 -no active chest pain/sob -on ASA, Statin, JUN, BB -hold JUN to prevent hypotension Hx of PAF status post caval triscuspid isthmus ablation in 12/09/17 -Metoprolol increased to 25mg po bid -No need for anticoagulation at this time secondary to history of caval tricuspid isthmus ablation -cardiology on board -follow telemetry HTN -bp on low side. 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 -Prednisone on hold, IV hydrocortisone for possible adrenal insufficiency -ESR 45/CRP 11.9 -Consult rheumatology secondary to possible rheumatologic etiology of recurrent pericarditis - per Dr. Steele, outpatient autoimmune testing continue prednisone taper, until 5mg po daily GERD -continue PPI BPH -Continue flomax for now; however monitor if BP remains low would hold in setting of possible orthostatic hypotension Disposition anticipate d/c home when medically stable, cleared by Cardio ff up with PCP, Cardio, Rheum Current Inpatient Medications: Current Inpatient Medications Medications (Trade) Dose Ordered Sig/Beverley Route Start Time Stop Time Status Last Admin Dose Admin Sodium Chloride 1,000 ml @ 60 mls/hr [id number] IV 06/20/18 11:20 07/20/18 11:19 06/21/18 01:15 100 MLS/HR Acetaminophen (Tylenol Tab) 650 mg Q4H PRN PO 06/20/18 11:30 07/20/18 11:29 Aspirin (Aspirin Chew) 81 mg DAILY PO 06/21/18 09:00 07/21/18 08:59 Atorvastatin Calcium (Lipitor Tab) 40 mg HS PO 06/20/18 21:00 07/20/18 20:59 06/20/18 21:28 40 MG Calcium/Vitamin D (Caltrate Plus Tab) 2 tab DAILY PO 06/21/18 09:00 07/21/18 08:59 Colchicine (Colchicine Tab) 0.6 mg BID PO 06/20/18 21:00 07/20/18 20:59 06/20/18 21:28 0.6 MG Gabapentin (Neurontin Cap) 300 mg BID PO 06/20/18 21:00 07/20/18 20:59 06/20/18 21:28 300 MG Magnesium Oxide (Mag-Ox Tab) 400 mg DAILY PO 06/21/18 09:00 07/21/18 08:59 Tamsulosin HCl (Flomax Cap) 0.8 mg QPM PO 06/20/18 21:00 07/20/18 20:59 06/20/18 21:28 0.8 MG Pantoprazole Sodium (Protonix Tab) 40 mg DAILY PO 06/21/18 09:00 07/21/18 08:59 Metoprolol Succinate (Toprol Xl Tab) 25 mg BID PO 06/20/18 21:00 07/21/18 08:59 06/20/18 21:27 25 MG Metoprolol Tartrate (Lopressor Tab) 25 mg ONE PO 06/20/18 13:15 07/20/18 13:14 Ceftriaxone Sodium 1 gm/ Dextrose 50 ml @ 100 mls/hr Q24H IV 06/20/18 16:00 06/22/18 15:59 06/20/18 16:47 100 MLS/HR Prednisone (PredniSONE TAB) 10 mg DAILY PO 06/21/18 09:00 07/21/18 08:59 Heparin Sodium (Porcine) (Heparin Sq 5000 Unit/0.5ml) 5,000 unit Q8 SQ 06/20/18 22:00 07/20/18 21:59 06/21/18 06:08 5,000 UNIT
[2018-06-21] MEDS: ATORVASTATIN 40 MG TAB PO SCH (20:30)
[2018-06-21] MEDS: TAMSULOSIN HCL 0.4 MG CAP PO SCH (20:30)
[2018-06-22] MEDS: SODIUM CHLORIDE 0.9% 1000ML 1,000 ML IV SCH (03:45)
[2018-06-22 04:24] VITALS: BP_SYST 129; BP_SYST 133; BP_SYST 149; BP_DIAS 70; BP_DIAS 74; BP_DIAS 75; PULSE 80; PULSE 88; PULSE 95; TEMP 37.4; O2SAT 97
[2018-06-22] MEDS: HEPARIN SOD 5000 UNIT/0.5 ML CARP SQ SCH (05:42)
[2018-06-22] MEDS: ASPIRIN 81 MG CHEW PO SCH (07:35)
[2018-06-22] MEDS: GABAPENTIN 300 MG CAP PO SCH (07:38)
[2018-06-22] MEDS: MAGNESIUM OXIDE 400 MG TAB PO SCH (07:38)
[2018-06-22] MEDS: PANTOprazole SOD 40 MG TAB PO SCH (07:38)
[2018-06-22] MEDS: CALCIUM 600MG + VIT D 400 IU TAB PO SCH (07:39)
[2018-06-22] MEDS: METOPROLOL SUCC 25MG EXT REL TAB PO SCH (07:39)
[2018-06-22] MEDS: COLCHICINE 0.6 MG TAB PO SCH (07:40)
[2018-06-22 07:50] VITALS: BP 135/77; PULSE 104; TEMP 36.8; O2SAT 93
--- NOTE | 2018-06-22 08:37 | Cardiology Follow-Up ---
Subjective Subjective Date of Service: Jun 22, 2018. Pt evaluation today including: conversation w/ patient, physical exam, chart review, lab review, review of studies, review of inpatient medication list Additional Details: The patient had an uneventful night. No orthostasis. No more SVT after review of the telemetry. Problem List Medical Problems: (1) Atrial fibrillation with RVR Status: Acute (2) Chest pain Status: Acute (3) Fever Status: Acute (4) Shoulder pain Status: Acute (5) Syncope Status: Acute Review of Systems Constitutional: + fever, + chills, + sweats, + weakness, + fatigue Eyes: No eye pain, No redness Respiratory: + shortness of breath Cardiac: + palpitations Abdomen: + see HPI Musculoskeletal: + see HPI Male : + dysuria Neurologic: + weakness Psychiatric: + depression symptoms Objective Vital Signs Last Vital Signs Documentation Date Time Temp Pulse Resp B/P (MAP) Pulse Ox O2 Delivery O2 Flow Rate FiO2 06/22/18 08:00 Room Air 06/22/18 07:50 36.8 104 18 135/77 (96) 93 06/20/18 09:45 2.0 Physical Exam: General Appearance: no apparent distress Eyes: bilateral eyes normal inspection, bilateral eyes EOMI ENT: normal ENT inspection, hearing grossly normal, pharynx normal Respiratory/Chest: chest non-tender, lungs clear, normal breath sounds, no respiratory distress Cardiovascular: regular rate, rhythm, no gallop, no murmur Abdomen: normal bowel sounds, non tender, soft Skin: normal color, warm/dry, no rash Assessment and Plan IMPRESSION: 1. Paroxysmal supraventricular tachycardia, possibly atrial fibrillation. 2. History of atrial flutter, status post ablation. 3. Coronary artery disease, status post CABG x4. 4. Recurrent pericarditis on slow prednisone taper. 5. History of polymyalgia rheumatica, on chronic steroids. 6. UTI 7. Syncope, probably multifactorial Recommendations: Believe the patient may be discharged to outpatient follow-up. He does have an appointment with Dr. Tamayo in the next 2 weeks which she should keep.
--- NOTE | 2018-06-22 10:02 | Progress Note ---
Subjective Date of Service: Jun 22, 2018. Subjective Pt evaluation today including: conversation w/ patient, physical exam, lab review, review of studies, conversation w/ economics consultant, review of inpatient medication list Problem List Medical Problems: (1) Atrial fibrillation with RVR Status: Acute (2) Chest pain Status: Acute (3) Fever Status: Acute (4) Shoulder pain Status: Acute (5) Syncope Status: Acute Review of Systems Constitutional: No fever, No chills Respiratory: No cough, No sputum, No shortness of breath Cardiac: No chest pain, No edema, No palpitations (resolved) Abdomen: No pain, No nausea, No vomiting, No diarrhea Medications Current Inpatient Medications Medications (Trade) Dose Ordered Sig/Beverley Route Start Time Stop Time Status Last Admin Dose Admin Sodium Chloride 1,000 ml @ 60 mls/hr [id number] IV 06/20/18 11:20 07/20/18 11:19 06/22/18 03:45 60 MLS/HR Acetaminophen (Tylenol Tab) 650 mg Q4H PRN PO 06/20/18 11:30 07/20/18 11:29 06/22/18 07:36 650 MG Aspirin (Aspirin Chew) 81 mg DAILY PO 06/21/18 09:00 07/21/18 08:59 06/22/18 07:35 81 MG Atorvastatin Calcium (Lipitor Tab) 40 mg HS PO 06/20/18 21:00 07/20/18 20:59 06/21/18 20:30 40 MG Calcium/Vitamin D (Caltrate Plus Tab) 2 tab DAILY PO 06/21/18 09:00 07/21/18 08:59 06/22/18 07:39 2 TAB Colchicine (Colchicine Tab) 0.6 mg BID PO 06/20/18 21:00 07/20/18 20:59 06/22/18 07:40 0.6 MG Gabapentin (Neurontin Cap) 300 mg BID PO 06/20/18 21:00 07/20/18 20:59 06/22/18 07:38 300 MG Magnesium Oxide (Mag-Ox Tab) 400 mg DAILY PO 06/21/18 09:00 07/21/18 08:59 06/22/18 07:38 400 MG Tamsulosin HCl (Flomax Cap) 0.8 mg QPM PO 06/20/18 21:00 07/20/18 20:59 06/21/18 20:30 0.8 MG Pantoprazole Sodium (Protonix Tab) 40 mg DAILY PO 06/21/18 09:00 07/21/18 08:59 06/22/18 07:38 40 MG Metoprolol Succinate (Toprol Xl Tab) 25 mg BID PO 06/20/18 21:00 07/21/18 08:59 06/22/18 07:39 25 MG Metoprolol Tartrate (Lopressor Tab) 25 mg ONE PO 06/20/18 13:15 07/20/18 13:14 Ceftriaxone Sodium 1 gm/ Dextrose 50 ml @ 100 mls/hr Q24H IV 06/20/18 16:00 06/22/18 15:59 06/21/18 15:14 100 MLS/HR Prednisone (PredniSONE TAB) 10 mg DAILY PO 06/21/18 09:00 07/21/18 08:59 06/22/18 07:39 10 MG Heparin Sodium (Porcine) (Heparin Sq 5000 Unit/0.5ml) 5,000 unit Q8 SQ 06/20/18 22:00 07/20/18 21:59 06/22/18 05:42 5,000 UNIT Objective Vital Signs Date Time Temp Pulse Resp B/P (MAP) Pulse Ox O2 Delivery O2 Flow Rate FiO2 06/22/18 08:00 Room Air 06/22/18 07:50 36.8 104 18 135/77 (96) 93 Room Air 06/22/18 04:24 37.4 80 18 129/70 (89) 97 Room Air 88 149/74 (99) 95 133/75 (94) 06/21/18 23:23 37.0 82 17 145/77 (99) 96 Room Air 06/21/18 20:00 Room Air 06/21/18 18:58 36.9 78 18 142/74 (96) 94 Room Air 06/21/18 15:20 36.8 68 16 144/72 (96) 96 Room Air 06/21/18 11:53 37.2 73 19 118/73 (88) 95 Room Air Physical Exam General Appearance: no apparent distress Respiratory/Chest: lungs clear, normal breath sounds, no respiratory distress, no accessory muscle use Cardiovascular: regular rate, rhythm, no edema, no murmur Extremities: normal inspection, no pedal edema Neurologic/Psychiatric: no motor/sensory deficits, alert, normal mood/affect Assessment and Plan This is a 78 year old male with a past medical history of CAD s/p CABG x4 in January 2018, hx. of paroxysmal atrial fibrillation s/p ablation, hx. of HLA B-27 , PMR on long-term steroids, GERD, HTN, HLD, BPH, CKD stage 3 - presents with fevers, tachycardia; subsequently developed a syncopal episode in the setting of supraventricular tachycardia Paroxysmal SVT - possible atrial fibrillation - does have a hx. of atrial flutter s/p ablation - no anticoagulation as per cardiology - metoprolol dose was increased - rates have since been controlled Syncope - multifactorial, but SVT may be the cause - ambulate in hallways and monitor Recurrent Pericarditis - limited echo performed - pericardium is enlarged - prednisone 10mg - taper on discharge to 5mg with colchicine 0.6mg BID CAD s/p CABG x4 - in January 2018 - no acute issues at this time - continue home medications; aspirin, statin, b-maría HTN - continue metoprolol at a higher dose - hold JUN-I for now, holding Lasix; can likely restart on discharge 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
[2018-06-22 10:03] VITALS: BP 135/77; PULSE 104; TEMP 36.8; O2SAT 93
[2018-06-22] MEDS ORDERED: METO25TA4 PO (10:04)
[2018-06-22] MEDS ORDERED: LISI-729 PO (10:04)
--- NOTE | 2018-06-22 10:06 | Discharge Instructions ---
Discharge Instructions Date of Service Jun 22, 2018. Admission Reason for Admission: Sob,Svt Discharge Discharge Diagnosis / Problem: Paroxysmal supraventricular tachycardia (high heart rate) Discharge Goals Goal(s): Decrease discomfort, Improve function, Diagnostic testing, Therapeutic intervention Activity Recommendations Activity Limitations: resume your previous activity . Instructions / Follow-Up Instructions / Follow-Up Please follow-up with Dr. Brady on June 27 at 10:45AM Please follow-up with Dr. Tamayo on July 07 Please follow-up with Dr. Lynch * Your dose of metoprolol has increased * You can go back to prednisone 5mg daily * Continue using colchicine Current Hospital Diet Patient's current hospital diet: AHA Diet (Heart Healthy) Discharge Diet Recommended Diet: AHA Diet (Heart Healthy) Pending Studies Studies pending at discharge: no Laboratory Results Hemoglobin A1c Test 06/20/18 09:05 Range/Units Estimated Average Glucose 128 mg/dl Hemoglobin A1c 6.1 H 4.5-5.6 % Medical Emergencies . Who to Call and When: Medical Emergencies: If at any time you feel your situation is an emergency, please call 911 immediately. . Non-Emergent Contact Non-Emergency issues call your: Primary Care Provider, Strategy Lead, Specialist (Rheumatology) . . "Provider Documentation" section prepared by Stacey Orta. .
--- NOTE | 2018-06-22 10:08 | Discharge Summary ---
Discharge Summary Date of Service Jun 22, 2018. Discharge Summary Admission Date: Jun 20, 2018 at 11:25 Discharge Date: Jun 22, 2018 Discharge Disposition: Home Principal Diagnosis: Paroxysmal SVT Syncope Recurrent Pericarditis CAD s/p CABG x4 HTN Pre DM PMR HLA B27 Spondyloarthropathy Steroid-Induced Osteoporosis GERD BPH Medication Reconciliation Changed Medications: Lisinopril (Prinivil) 5 Mg Tab 2.5 MG PO DAILY for 30 Days, #15 TABS (Changed from: 5 MG) Metoprolol Succinate (Toprol Xl) 25 Mg Tabcr 25 MG PO BID for 30 Days, #60 TABS (Changed from: DAILY) Continued Medications: Aspirin (Aspirin Chewable) 81 Mg Chew 81 MG PO DAILY Atorvastatin (Lipitor) 40 Mg Tab 40 MG PO HS Calcium/Vitamin D (Os-Don 500 Plus D) Tab 2 TAB PO DAILY Ciprofloxacin HCl (Ciprofloxacin) 500 Mg Tab 500 MG PO Q12H TAKE FOR 10 DAYS. START DAY 06/19/18 Colchicine (Colchicine) 0.6 Mg Tab 0.6 MG PO BID Esomeprazole Magnesium (Nexium) 40 Mg Capcr 40 MG PO DAILY Furosemide (Lasix) 20 Mg Tab 20 MG PO DAILY Gabapentin (Neurontin) 100 Mg Cap 300 MG PO BID Lorazepam (Ativan) 0.5 Mg Tab 0.5 MG PO Q6H PRN for Anxiety Magnesium Oxide (Mag-Ox) 400 Mg Tab 400 MG PO DAILY Prednisone (Prednisone) 5 Mg Tab 5 MG PO DAILY Risedronate Sod (Actonel) 35 Mg Tab 35 MG PO WK Tamsulosin Hcl (Flomax) 0.4 Mg Cap 0.8 MG PO QPM 2 CAPSULE DOSAGE Tramadol (Ultram) 50 Mg Tab 50 MG PO Q8H PRN for Pain Triamcinolone Acet (Aristocort 0.1%) 90 Appln/30 Gm Cr DIRECTED Discontinued Medications: Prednisone (Prednisone) 10 Mg Tab 10 MG PO DAILY for 2 Days Admission Information HPI (per Admitting provider): This is a 78-year-old male who has significant PMH CAD status post CABG 4 in 2017, PAF status post caval triscuspid isthmus ablation in 12/09/17, CKD 3, hypertension, HLD, PMR, HLA-B27, GERD, BPH who presents with fever, sweats, tachycardia and shortness of breath 3 days. Of note patient had recent hospitalization back in early April in [place] secondary to pericarditis treated with ibuprofen. He then presented to [facility] due to fever and sweats. Echo at that time revealed thickened pericardium, EF 55-60%. It was felt patient had recurrent pericarditis, therefore placed on prolonged prednisone taper starting at 60 mg, colchicine 0.6 mg twice daily. He had otherwise been doing well until approximately 3 days prior in which he noted intermittent feeling febrile, sweats, night sweats, weakness, lethargy. He did see PCP Dr. Brady yesterday in office and was prescribed Cipro 500 mg twice daily 10 days for possible UTI. He was complaining of dysuria. When awoke this morning bed sheets were soaked. [place] increasingly lethargic, weak. Was changing bed sheets when noted he was short of breath. Looked at [employer] noting his heart rate to be in 180s. Called significant other to bring to ED. While in triage he was lightheaded, dizzy, was in wheelchair when had short syncopal episode. Was rushed to bed in which regained consciousness in less than 1 minute. An EKG done and noted to be in possible SVT. Was given 5 mg IV Lopressor which returned heart rate to normal however continue to have intermittent PAC/arrhythmia. Currently sitting in bed he feels improved from arrival. Currently denies fever, chills, sweats, lightheadedness, dizziness, change in vision, change in hearing, chest pain, shortness of breath at rest, palpitations, nausea, vomiting, diarrhea, dysuria. He notes he has been having intermittent dysuria for the past several months. He does have occasional urgency with urination as well as difficulty starting stream. His last known feeling feverish was approximate 8:30 AM. Further elicits to having myalgias, joint aches. Initial troponin was negative, BUN/creatinine relatively unremarkable except hyperglycemia was 176, BUN 21, creatinine 1.2, ESR 45, CRP 11.9. Chest x-ray revealed possible atelectasis otherwise no acute abnormality. He is now being admitted for further observation of possible arrhythmia, echocardiogram to evaluate pericardium. Physical Exam (per Admitting): General Appearance: WD/WN, no apparent distress (Male, sitting up in bed, conversing at ease) Head: normocephalic, atraumatic Eyes: normal inspection, PERRL, EOMI, sclerae normal ENT: normal ENT inspection, hearing grossly normal, + pertinent finding ( Mucous membranes moist) Neck: supple, no adenopathy, thyroid normal, no JVD Respiratory/Chest: chest non-tender, lungs clear, normal breath sounds, no respiratory distress, no accessory muscle use Cardiovascular: regular rate, rhythm (With frequent ectopic beats), no edema , no gallop, no JVD, no murmur, normal peripheral pulses Abdomen/GI: normal bowel sounds, non tender, soft, no organomegaly Back: normal inspection, no muscle spasm Extremities/Musculoskelatal: normal inspection, no calf tenderness, normal capillary refill, no pedal edema Neurologic/Psych: alert, normal mood/affect, oriented x 3 Skin: warm/dry, no rash, + pertinent finding (Slightly hyperpigmented) Hospital Course This is a 78 year old male with a past medical history of CAD s/p CABG x4 in January 2018, hx. of paroxysmal atrial fibrillation s/p ablation, hx. of HLA B-27 , PMR on long-term steroids, GERD, HTN, HLD, BPH, CKD stage 3 - presents with fevers, tachycardia; subsequently developed a syncopal episode in the setting of supraventricular tachycardia Paroxysmal SVT - possible atrial fibrillation - does have a hx. of atrial flutter s/p ablation - no anticoagulation as per cardiology - metoprolol dose was increased - rates have since been controlled; currently in NSR - as per cardiology, patient can be discharge Syncope - multifactorial, but SVT may be the cause - ambulate in hallways and monitor Recurrent Pericarditis - limited echo performed - pericardium is enlarged - prednisone 10mg - taper on discharge to 5mg with colchicine 0.6mg BID CAD s/p CABG x4 - in January 2018 - no acute issues at this time - continue home medications; aspirin, statin, b-maría HTN - continue metoprolol at a higher dose - hold JUN-I for now, holding Lasix; can likely restart on discharge 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 Discharge Instructions Please follow-up with Dr. Brady on June 27 at 10:45AM Please follow-up with Dr. Tamayo on July 07 Please follow-up with Dr. Lynch * Your dose of metoprolol has increased * You can go back to prednisone 5mg daily * Continue using colchicine
[2018-06-25] MEDS ORDERED: CRD200 PO (16:01)
[2018-06-25] MEDS ORDERED: PRED20TA PO (16:01)
== END 2018-06-22 10:56 | disposition home or self-care (01) | DRG 309 ==
LOC: C.EDB 08:51 → C.2T 11:25 → ENRESERV 12:15
PROVIDERS: ADMIT Internal Medicine; ATTEND Family Medicine
DX: I47.1 Supraventricular tachycardia (principal); I31.9 Disease of pericardium, unspecified; N39.0 Urinary tract infection, site not specified; I48.91 Unspecified atrial fibrillation; N18.3 Chronic kidney disease, stage 3 (moderate); I25.10 Atherosclerotic heart disease of native coronary artery without angina pectoris; E78.5 Hyperlipidemia, unspecified; K21.9 Gastro-esophageal reflux disease without esophagitis; T38.0X5A Adverse effect of glucocorticoids and synthetic analogues, initial encounter; I12.9 Hypertensive chronic kidney disease with stage 1 through stage 4 chronic kidney disease, or unspecified chronic kidney disease; M81.8 Other osteoporosis without current pathological fracture; Z95.1 Presence of aortocoronary bypass graft; M35.3 Polymyalgia rheumatica; Z82.49 Family history of ischemic heart disease and other diseases of the circulatory system; Z83.79 Family history of other diseases of the digestive system; Z87.891 Personal history of nicotine dependence; R73.03 Prediabetes; M12.88 Other specific arthropathies, not elsewhere classified, other specified site; Y92.009 Unspecified place in unspecified non-institutional (private) residence as the place of occurrence of the external cause

== ENCOUNTER 2018-12-21 09:12 | Inpatient (IN) ==
[2018-12-21] MEDS ORDERED: LORazepam 2 MG/ML VIAL (IM USE) ONE (09:46)
[2018-12-21] MEDS ORDERED: ASPIRIN CHEW 324 MG PO STA (09:48)
[2018-12-21] MEDS ORDERED: AMIODARONE IV BOLUS / DRIP IV STA (09:57)
[2018-12-21 09:58] LABS: Basophils # (auto) 0.01 K/uL (0-0.2); Basophils % (auto) 0.1 %; Eosinophils # (auto) 0.16 K/uL (0-0.5); Eosinophils % (auto) 2.3 %; Hemoglobin 14.7 g/dL (14.0-18.0); Immature Granulocytes # (auto) 0.04 K/uL (0.00-0.02); Immature Granulocytes % (auto) 0.6 %; Lymphocytes # (auto) 1.62 K/uL (1.2-3.4); Lymphocytes % (auto) 23.7 %; Mean Corpuscular Hgb Conc 34.2 g/dL (32-36); Mean Corpuscular Volume 90.9 fL (80-100); Mean Platelet Volume 9.7 fL (7.4-10.4); Monocytes # (auto) 0.41 K/uL (0.11-0.59); Neutrophils % (auto) 67.3 %; Platelet Count 251 K/uL (130-400); RDW Coefficient of Variation 13.5 % (11.5-14.5); RDW Standard Deviation 44.9 fL (36.4-46.3); Red Blood Count 4.73 M/uL (4.7-6.1); White Blood Count 6.84 K/uL (4.8-10.8)
[2018-12-21] MEDS ORDERED: SODIUM CHLORIDE 0.9% 1000ML 1,000 ML IV SCH (10:00)
[2018-12-21] MEDS ORDERED: AMIODARONE 150MG / 100ML D5W IV ONE (10:02)
[2018-12-21 10:05] LABS: iSTAT Creatinine 1.1 mg/dl (0.6-1.3); iSTAT Hemoglobin 14.3 g/dl (14.0-18.0); iSTAT Ionized Calcium 1.11 mmol/l (1.12-1.32); iSTAT Potassium 3.9 mEq/L (3.3-5.0)
[2018-12-21] MEDS ORDERED: AMIODARONE 360MG / 200ML D5W IV ONE (10:05)
[2018-12-21 10:08] LABS: Partial Thromboplastin Time 27.2 Seconds (21.0-31.0); Prothrombin Time 10.3 Seconds (9.0-12.0)
[2018-12-21 10:13] LABS: BUN Creatinine Ratio 17.5 (10-20); Blood Urea Nitrogen 19 mg/dl (7-18); Calcium 9.3 mg/dl (8.5-10.1); Carbon Dioxide 25 mmol/L (21-32); Chloride 105 mmol/L (98-107); Creatinine Clr Calc Pharmacy 71.7 ml/min; Est GFR (African American) 78.1; Est GFR (Non-African American) 67.4; Glucose 127 mg/dl (70-99); Potassium 3.9 mmol/L (3.5-5.1); Sodium 137 mmol/L (136-145)
[2018-12-21 10:18] LABS: Troponin I < 0.015 ng/ml (0-0.045)
[2018-12-21] MEDS ORDERED: Heparin IV Standard *NO* Bolus ONE (10:22)
[2018-12-21] MEDS ORDERED: METOPROLOL TARTRATE 1 MG/ML VIAL IV STA (10:42)
--- NOTE | 2018-12-21 10:55 | XRay Report ---
XR chest 1V portable CLINICAL HISTORY: 78 years-old Male presenting with Chest Pain. TECHNIQUE: Portable upright AP view of the chest was obtained. COMPARISON: 06/23/2018. FINDINGS: Median sternotomy wires and left atrial appendage occlusion device noted. Atherosclerosis and tortuos ity of the thoracic aorta. Cardiac silhouette moderately enlarged. Partial obscuration of the left he art border. Pulmonary vascular prominence. Basilar predominant left lung opacity and bronchial wall t hickening. No large effusion or pneumothorax. Degenerative changes of the left glenohumeral joint. Up per abdomen normal. IMPRESSION: 1. Apparent left basilar infiltrate resulting in partial obscuration of the left heart border. This may represent a prominent epicardial fat pad or developing infiltrate. Consider PA and lateral views for further assessment. 2. Cardiac megaly with mild volume overload. Electronically signed by: Claudy Frias M.D. 12/21/2018 10:54 AM
[2018-12-21] MEDS ORDERED: HEPARIN 25000 UNIT/500 ML D5W IV ONE (11:02)
--- NOTE | 2018-12-21 11:09 | Emergency Department Note ---
Entered by Jacy Quijano acting as a scribe for History of Present Illness General Chief complaint: Arrhythmia/Palpitations Stated complaint: RAPID HEART IRREGULAR Time Seen by Provider: 12/21/18 09:29 Source: patient History of Present Illness Onset (ago): hour(s) (this morning) Location: chest Severity: similar to prior episodes Pain Consistency: + other (persistent) Maximum Pain Intensity: 4 Quality: + other (palpitations) Associated symptoms: + chest pain (tightness) and + shortness of breath Treatments prior to arrival: other (Tylenol) The patient is a 78 year old male who presents to the Emergency Room with complaints of persistent palpitations that began this morning. The patient states that this is similar to prior episodes. The patient states that he feels tightness in his chest, and states that he is short of breath. The patient denies fevers and coughing up blood. The patient states that he takes Amiodarone and baby aspirin regularly. The patient states that he has a history of an ablation for atrial fiblrillation, open heart surgery, and pericarditis. The patient states that he has been taking Tylenol recently. The patient states that he took Aspirin this morning with his regular pills, but states that he took another after for his symptoms. Patient states he took 2 baby aspirin prior to arrival. Home Medications Home Medications Medication Instructions Recorded Confirmed Type aspirin [Aspir-81] 81 mg PO DAILY 12/21/18 12/21/18 History atorvastatin 40 mg PO DAILY 12/21/18 12/21/18 History calcium carbonate-vitamin D3 2 tab PO DAILY 12/21/18 12/21/18 History [Calcium 500 + D] furosemide 20 mg PO [id number] 12/21/18 12/21/18 History gabapentin 300 mg PO BID 12/21/18 12/21/18 History magnesium oxide 400 mg PO DAILY 12/21/18 12/21/18 History metoprolol succinate 25 mg PO DAILY 12/21/18 12/21/18 History prednisone 5 mg PO UD 12/21/18 12/21/18 History risedronate 35 mg PO WK 12/21/18 12/21/18 History tamsulosin 0.4 mg PO BID 12/21/18 12/21/18 History Allergies Allergy/AdvReac Type Severity Reaction Status Date / Time No Known Allergies Allergy Unverified 12/21/18 10:21 Past Med/Surg History Medical History History of atrial flutter History of pericarditis (Resolved) recurrent Dyslipidemia (Chronic) HTN (hypertension) (Chronic) Lichen planus (Chronic) on chronic prednisone therapy, follows Dr. Abdullahi HLA-B27 spondyloarthropathy (Chronic) GERD (gastroesophageal reflux disease) (Chronic) Coronary artery disease (Chronic) s/p CABG x 4 01/2018 Osteoporosis (Chronic) Osteoarthritis (Chronic) BPH (benign prostatic hyperplasia) (Chronic) CKD (chronic kidney disease), stage III (Chronic) Polymyalgia rheumatica (Chronic) Surgical History History of cataract surgery (Chronic) H/O hernia repair (Chronic) Hx of four vessel coronary artery bypass graft (Chronic) "01/30/18 at [facility]" Hx of prior ablation treatment (Chronic) "12/09/17" History of cataract extraction (Chronic) Family History Mother , 44 Cirrhosis, Onset Age: 44 Father , 66 Lung cancer CAD (coronary artery disease) Heart attack Other HTN (hypertension) Social History marital status: Single Current Living Situation Comment: Lives alone, has significant other that lives next door current occupational status: retired 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 and A total of 10 systems reviewed and were otherwise negative Physical Exam Vital Signs Vital Signs - 24 hr 12/21/18 09:25 12/21/18 09:34 12/21/18 09:48 Temperature 36.6 C Temperature Source Oral Sepsis Recent Fever Within 48 Hours No Sepsis Action Taken by Nursing No Action Required Pulse Rate 176 H 163 H Pulse Rate from SpO2 Sensor Respiratory Rate 20 25 H Respiratory Depth Normal Blood Pressure 104/62 140/99 Blood Pressure Mean 76 112 Pulse Oximetry 99 93 Oxygen Delivery Method Room Air Nasal Cannula Oxygen Flow Rate 2 12/21/18 09:50 12/21/18 09:57 12/21/18 10:03 Temperature Temperature Source Sepsis Recent Fever Within 48 Hours Sepsis Action Taken by Nursing Pulse Rate 139 H 127 H 121 H Pulse Rate from SpO2 Sensor 126 H 121 H Respiratory Rate 21 26 H 27 H Respiratory Depth Blood Pressure 141/89 H 127/87 127/86 Blood Pressure Mean 106 100 99 Pulse Oximetry 95 95 Oxygen Delivery Method Oxygen Flow Rate 12/21/18 10:05 12/21/18 10:11 12/21/18 10:16 Temperature Temperature Source Sepsis Recent Fever Within 48 Hours Sepsis Action Taken by Nursing Pulse Rate 121 H 124 H 120 H Pulse Rate from SpO2 Sensor 113 H 116 H 120 H Respiratory Rate 38 H 22 21 Respiratory Depth Blood Pressure 123/89 139/82 133/97 Blood Pressure Mean 100 101 109 Pulse Oximetry 95 95 96 Oxygen Delivery Method Oxygen Flow Rate 12/21/18 10:18 12/21/18 10:20 12/21/18 10:25 Temperature Temperature Source Sepsis Recent Fever Within 48 Hours Sepsis Action Taken by Nursing Pulse Rate 95 H 122 H 122 H Pulse Rate from SpO2 Sensor 100 H 122 H 120 H Respiratory Rate 24 21 27 H Respiratory Depth Blood Pressure 138/97 137/98 Blood Pressure Mean 110 111 Pulse Oximetry 97 96 96 Oxygen Delivery Method Oxygen Flow Rate 12/21/18 10:30 12/21/18 10:35 12/21/18 10:40 Temperature Temperature Source Sepsis Recent Fever Within 48 Hours Sepsis Action Taken by Nursing Pulse Rate 123 H 122 H 124 H Pulse Rate from SpO2 Sensor 123 H 123 H 115 H Respiratory Rate 25 H 17 36 H Respiratory Depth Blood Pressure 142/92 H 136/88 123/95 Blood Pressure Mean 108 104 104 Pulse Oximetry 95 95 96 Oxygen Delivery Method Oxygen Flow Rate 12/21/18 10:46 12/21/18 10:50 12/21/18 10:51 Temperature Temperature Source Sepsis Recent Fever Within 48 Hours Sepsis Action Taken by Nursing Pulse Rate 124 H 125 H 126 H Pulse Rate from SpO2 Sensor 130 H 125 H 127 H Respiratory Rate 28 H 39 H 32 H Respiratory Depth Blood Pressure 140/85 116/86 Blood Pressure Mean 103 96 Pulse Oximetry 94 94 94 Oxygen Delivery Method Oxygen Flow Rate 12/21/18 10:55 12/21/18 11:00 12/21/18 11:05 Temperature Temperature Source Sepsis Recent Fever Within 48 Hours Sepsis Action Taken by Nursing Pulse Rate 124 H 123 H 124 H Pulse Rate from SpO2 Sensor 125 H 123 H 123 H Respiratory Rate 24 26 H 34 H Respiratory Depth Blood Pressure 118/86 116/83 118/84 Blood Pressure Mean 96 94 95 Pulse Oximetry 94 93 94 Oxygen Delivery Method Oxygen Flow Rate 12/21/18 11:10 12/21/18 11:11 12/21/18 11:16 Temperature Temperature Source Sepsis Recent Fever Within 48 Hours Sepsis Action Taken by Nursing Pulse Rate 127 H 126 H 128 H Pulse Rate from SpO2 Sensor 129 H 128 H 127 H Respiratory Rate 37 H 24 27 H Respiratory Depth Blood Pressure 123/93 119/84 Blood Pressure Mean 103 95 Pulse Oximetry 92 93 93 Oxygen Delivery Method Oxygen Flow Rate 12/21/18 11:17 12/21/18 11:20 12/21/18 11:26 Temperature Temperature Source Sepsis Recent Fever Within 48 Hours Sepsis Action Taken by Nursing Pulse Rate 127 H 130 H 69 Pulse Rate from SpO2 Sensor 127 H 130 H 135 H Respiratory Rate 24 26 H 29 H Respiratory Depth Blood Pressure 139/88 123/89 131/102 H Blood Pressure Mean 105 100 111 Pulse Oximetry 92 91 91 Oxygen Delivery Method Oxygen Flow Rate 12/21/18 11:30 12/21/18 11:31 12/21/18 11:35 Temperature Temperature Source Sepsis Recent Fever Within 48 Hours Sepsis Action Taken by Nursing Pulse Rate 113 H 99 H 120 H Pulse Rate from SpO2 Sensor 105 H 106 H 119 H Respiratory Rate 30 H 25 H 26 H Respiratory Depth Blood Pressure 116/90 131/93 Blood Pressure Mean 98 105 Pulse Oximetry 92 92 96 Oxygen Delivery Method Oxygen Flow Rate 12/21/18 11:40 12/21/18 11:42 12/21/18 11:46 Temperature Temperature Source Sepsis Recent Fever Within 48 Hours Sepsis Action Taken by Nursing Pulse Rate 56 L 58 L 59 L Pulse Rate from SpO2 Sensor 67 59 L 59 L Respiratory Rate 29 H 23 26 H Respiratory Depth Blood Pressure 133/69 130/80 Blood Pressure Mean 90 96 Pulse Oximetry 95 96 94 Oxygen Delivery Method Oxygen Flow Rate 12/21/18 11:47 12/21/18 11:50 12/21/18 11:55 Temperature Temperature Source Sepsis Recent Fever Within 48 Hours Sepsis Action Taken by Nursing Pulse Rate 53 L 57 L 52 L Pulse Rate from SpO2 Sensor 54 L 57 L 56 L Respiratory Rate 21 22 22 Respiratory Depth Blood Pressure 146/78 H 136/82 Blood Pressure Mean 100 100 Pulse Oximetry 93 93 94 Oxygen Delivery Method Oxygen Flow Rate 12/21/18 12:00 12/21/18 12:01 12/21/18 12:06 Temperature Temperature Source Sepsis Recent Fever Within 48 Hours Sepsis Action Taken by Nursing Pulse Rate 58 L 53 L 59 L Pulse Rate from SpO2 Sensor 57 L 55 L 59 L Respiratory Rate 23 20 15 Respiratory Depth Blood Pressure 136/80 126/74 Blood Pressure Mean 98 91 Pulse Oximetry 92 93 92 Oxygen Delivery Method Oxygen Flow Rate 12/21/18 12:10 12/21/18 12:11 12/21/18 12:16 Temperature Temperature Source Sepsis Recent Fever Within 48 Hours Sepsis Action Taken by Nursing Pulse Rate 56 L 54 L 57 L Pulse Rate from SpO2 Sensor 57 L 57 L 58 L Respiratory Rate 17 24 24 Respiratory Depth Blood Pressure 135/98 143/80 H Blood Pressure Mean 110 101 Pulse Oximetry 96 95 97 Oxygen Delivery Method Oxygen Flow Rate 12/21/18 12:20 12/21/18 12:21 12/21/18 12:26 Temperature Temperature Source Sepsis Recent Fever Within 48 Hours Sepsis Action Taken by Nursing Pulse Rate 56 L 58 L 56 L Pulse Rate from SpO2 Sensor 58 L 58 L 52 L Respiratory Rate 23 24 21 Respiratory Depth Blood Pressure 139/86 137/76 Blood Pressure Mean 103 96 Pulse Oximetry 93 93 92 Oxygen Delivery Method Oxygen Flow Rate 12/21/18 12:30 12/21/18 12:31 12/21/18 12:36 Temperature Temperature Source Sepsis Recent Fever Within 48 Hours Sepsis Action Taken by Nursing Pulse Rate 68 65 48 L Pulse Rate from SpO2 Sensor 58 L 65 53 L Respiratory Rate 21 22 21 Respiratory Depth Blood Pressure 111/71 146/87 H Blood Pressure Mean 84 106 Pulse Oximetry 92 94 93 Oxygen Delivery Method Oxygen Flow Rate 12/21/18 12:40 12/21/18 12:41 12/21/18 12:46 Temperature Temperature Source Sepsis Recent Fever Within 48 Hours Sepsis Action Taken by Nursing Pulse Rate 57 L 49 L 47 L Pulse Rate from SpO2 Sensor 57 L 50 L 47 L Respiratory Rate 19 19 17 Respiratory Depth Blood Pressure 142/73 H 131/83 Blood Pressure Mean 96 99 Pulse Oximetry 94 94 93 Oxygen Delivery Method Oxygen Flow Rate 12/21/18 12:50 12/21/18 12:55 12/21/18 13:00 Temperature Temperature Source Sepsis Recent Fever Within 48 Hours Sepsis Action Taken by Nursing Pulse Rate 51 L 58 L 52 L Pulse Rate from SpO2 Sensor 49 L 59 L 52 L Respiratory Rate 19 20 20 Respiratory Depth Blood Pressure 131/83 132/82 Blood Pressure Mean 99 98 Pulse Oximetry 93 94 91 Oxygen Delivery Method Oxygen Flow Rate 12/21/18 13:01 12/21/18 13:06 12/21/18 13:10 Temperature Temperature Source Sepsis Recent Fever Within 48 Hours Sepsis Action Taken by Nursing Pulse Rate 60 62 58 L Pulse Rate from SpO2 Sensor 55 L 58 L 58 L Respiratory Rate 21 20 23 Respiratory Depth Blood Pressure 133/74 157/80 H Blood Pressure Mean 93 105 Pulse Oximetry 94 94 95 Oxygen Delivery Method Oxygen Flow Rate 12/21/18 13:11 12/21/18 13:16 12/21/18 13:20 Temperature Temperature Source Sepsis Recent Fever Within 48 Hours Sepsis Action Taken by Nursing Pulse Rate 58 L 58 L 59 L Pulse Rate from SpO2 Sensor 58 L 58 L 57 L Respiratory Rate 22 22 18 Respiratory Depth Blood Pressure 156/86 H 143/65 H Blood Pressure Mean 109 91 Pulse Oximetry 96 93 94 Oxygen Delivery Method Oxygen Flow Rate 12/21/18 13:21 12/21/18 13:25 12/21/18 13:30 Temperature Temperature Source Sepsis Recent Fever Within 48 Hours Sepsis Action Taken by Nursing Pulse Rate 57 L 53 L 57 L Pulse Rate from SpO2 Sensor 56 L 55 L 58 L Respiratory Rate 18 16 19 Respiratory Depth Blood Pressure 130/78 133/73 126/77 Blood Pressure Mean 95 93 93 Pulse Oximetry 94 94 93 Oxygen Delivery Method Oxygen Flow Rate 12/21/18 13:36 12/21/18 13:40 12/21/18 13:41 Temperature Temperature Source Sepsis Recent Fever Within 48 Hours Sepsis Action Taken by Nursing Pulse Rate 56 L 58 L 51 L Pulse Rate from SpO2 Sensor 56 L 58 L 55 L Respiratory Rate 20 20 18 Respiratory Depth Blood Pressure 138/69 137/75 Blood Pressure Mean 92 95 Pulse Oximetry 93 93 94 Oxygen Delivery Method Oxygen Flow Rate 12/21/18 13:46 Temperature Temperature Source Sepsis Recent Fever Within 48 Hours Sepsis Action Taken by Nursing Pulse Rate 59 L Pulse Rate from SpO2 Sensor 58 L Respiratory Rate 26 H Respiratory Depth Blood Pressure 138/74 Blood Pressure Mean 95 Pulse Oximetry 96 Oxygen Delivery Method Oxygen Flow Rate GENERAL: Appears distressed. HENT: Exam performed. Head: Normocephalic and atraumatic. Right Ear: External ear normal. No mastoid tenderness. Left Ear: External ear normal. No mastoid tenderness. Mouth/Throat: The oropharynx is clear and moist. No trismus in the jaw. No dental abscesses or uvula swelling. No oropharyngeal exudate or tonsillar abscesses. EYES: Conjunctivae and EOM are normal. Pupils are equal, round, and reactive to light. Right eye exhibits no discharge. Left eye exhibits no discharge. No scleral icterus. NECK: Normal range of motion. Neck supple. No JVD present. No spinous process tenderness present. No carotid bruit present. No rigidity. No tracheal deviation and normal range of motion present. No Brudzinski's sign and no Kernig 's sign noted. CV: Tachycardic rate, irregular rhythm, normal heart sounds and intact distal pulses. There is no peripheral edema. Palpable radial pulses bue. PULM/CHEST: Effort normal and breath sounds normal. No respiratory distress. No stridor. There are no wheezes or rales. Chest Wall: Patient exhibits no tenderness. ABD: The abdomen is soft. Bowel sounds are normal. There is no distension. No mass is present. There is no tenderness. There is no rebound, no guarding, no Chandler's sign and no tenderness at McBurney's point. Rovsig negative MUSC/SKEL: Normal range of motion. There is no peripheral edema, tenderness or deformity. LYMPH: No cervical adenopathy. NEURO: Patient is alert and oriented to person, place, and time. Normal strength. No cranial nerve deficit or sensory deficit. GCS eye subscore is 4. GCS verbal subscore is 5. GCS motor subscore is 6. cerbellar tests wnl. SKIN: Skin is warm and dry. Patient is not diaphoretic. PSYCH: Patient has a normal mood and affect. Behavior is normal. Judgment and thought content normal. Course 09: Past medical records reviewed. The patient was evaluated in room C9, and a complete history and physical examination were performed. Patient was immediately seen on arrival. On the surveillance system monitor he was displaying a wide complex tachycardia with a rate in the 170s. His blood pressure was stable. Defibrillation/cardioversion pads were placed on the patient's chest. 2 large- bore IVs were obtained. First ECG: Vtach with a rate of 168. QRS 138. QTC 528. No ST elevation or ST depression. Normal saline bolus initiated. Aspirin given. Patient will be bolused with amiodarone 150 mg IV over 10 minutes given his wide complex tachycardia as well as stable blood pressure. 0948: Second ECG: Status post 150mg bolus of Amiodarone. Vtach with a rate of 138. QRS 144. QTC 548. No ST elevation or ST depression. Patient's blood pressure remained stable. Will repeat the 150 mg IV bolus of amiodarone over 10 minutes again. 0956: Third ECG: Shelter through second 150mg bolus of Amiodarone. Afib with a rate of 78. QRS and QTC within normal limits. No ST elevation or ST depression. 1002: Patient appear to momentarily go into an atrial fibrillation rhythm with a rate less than 100 but then soon went back into a wide-complex tachycardia with a rate in the 120s. Fourth ECG: Vtach with a rate of 123. QRS 146. QTC 561. No ST elevation or ST depression. Ativan 1 mg given. 1004: [id number] labs show negative troponin and a potassium that was within normal limits. I discussed the case with Dr. Tamayo-Cardiology who agrees with the treatment plan and will come evaluate the patient. 1008: Labs within normal limits. Fifth ECG: Status post second 150mg bolus. Wide complex rhythm. Irregular. Rate of 72. Frequent PVCs. QRS 126. QTC 438. No ST elevation or ST depression. Patient will be started on amiodarone drip. 1017: Dr. AzulCardiology is at the patient's bedside. Patient on amiodarone drip. Sixth ECG: Wide complex tachycardia with a rate of 119. QRS 158. QTC 554. No ST elevation or ST depression. Dr. Sweeney states to begin the patient on heparin drip, no bolus. 1108: Dr. Tamayo evaluated the patient at bedside. He and Dr. Aguillon- Cardiology take a look at the rhythm strips as well as EKGs. They feel as though it is less likely V. tach and more likely to be possibly atrial flutter versus AVNRT. Dr. Tamayo states he prefers to stop the amiodarone drip at this time, get a continuous EKG recording, and then push 6 mg of adenosine to determine the patient's underlying rhythm. 1122: Dr. Aguillon-Cardiology and Dr. Tamayo-Cardiology are at the patient's bedside. The amiodarone has been stopped. The patient was given adenosine. The patient is in AVNRT. Dr. Pal-Cadiology recommends restarting the amiodarone drip. They state to admit to the PACU. 1134: I discussed the case with Lola Coulter PA-C who will further evaluate the patient. Consultations Consultation #1: I discussed the case with Dr. Tamayo-Cardiology who agrees with the treatment plan and will come evaluate the patient. Time: 10:04 Consultation #2: Dr. Aguillon-Cardiology and Dr. Tamayo-Cardiology are at the patient's bedside. The amiodarone has been stopped. The patient was given adenosine. The patient is in AVNRT. Dr. Freire recommends restarting the amiodarone. Time: 11:22 Consultation #3: I discussed the case with Lola Coulter PA-C who will further evaluate the patient. Time: 11:34 Administered Medications Amiodarone HCl/Dextrose (Nexterone / D5w) 360 mg in 200 mls @ 33.333 mls/hr IV .Q6H [facility] Stop: 01/20/19 15:56 Last Admin: 12/21/18 10:09 Dose: 1 mg/min, 33.3 mls/hr Sodium Chloride (Nss 1000ml) 1,000 mls @ 70 mls/hr IV .[id number] [facility] Stop: 01/20/19 11:44 Last Admin: 12/21/18 11:34 Dose: 70 mls/hr Discontinued Medications Adenosine (Adenosine) Confirm Administered Dose 6 mg IV .STK-MED ONE Stop: 12/21/18 11:11 Last Admin: 12/21/18 11:30 Dose: 6 mg Adenosine (Adenosine) 6 mg IV NOW STA Stop: 12/21/18 11:34 Last Admin: 12/21/18 12:52 Dose: Not Given Amiodarone HCl/Dextrose (Nexterone / D5w) Confirm Administered Dose 150 mg IV .STK-MED ONE Stop: 12/21/18 10:03 Last Admin: 12/21/18 10:05 Dose: 150 mg Amiodarone HCl/Dextrose (Nexterone / D5w) Confirm Administered Dose 360 mg IV .STK-MED ONE Stop: 12/21/18 10:06 Last Admin: 12/21/18 10:13 Dose: Not Given Amiodarone HCl (Cordarone Iv Bolus / Drip) 1 ea IV NOW STA; Protocol Stop: 12/21/18 09:58 Last Admin: 12/21/18 10:13 Dose: Not Given Aspirin (Aspirin) 324 mg PO NOW STA Stop: 12/21/18 09:49 Last Admin: 12/21/18 10:05 Dose: 162 mg Heparin Sodium/Dextrose () 1 ea N/A ONE ONE; Protocol Stop: 12/21/18 10:23 Last Admin: 12/21/18 11:38 Dose: Not Given Heparin Sodium/Dextrose (Heparin Sodium/Dextrose) Confirm Administered Dose 25, 000 units IV .STK-MED ONE Stop: 12/21/18 11:03 Last Admin: 12/21/18 11:38 Dose: Not Given Sodium Chloride (Nss 1000ml) 1,000 mls @ 999 mls/hr IV .Q1H1M TEJAS Stop: 12/21/18 11:00 Last Infusion: 12/21/18 11:30 Dose: 0 mls/hr Admin: 12/21/18 10:05 Dose: 999 mls/hr Lorazepam (Ativan) Confirm Administered Dose 2 mg .ROUTE .STK-MED ONE Stop: 12/21/18 09:47 Last Admin: 12/21/18 10:05 Dose: 1 mg Metoprolol Tartrate (Lopressor) 2.5 mg IV NOW STA Stop: 12/21/18 10:43 Last Admin: 12/21/18 11:30 Dose: 2.5 mg Perflutren Lipid Microsphere (Definity) 2 ml IV ONCE ONE Stop: 12/21/18 13:40 Last Admin: 12/21/18 13:41 Dose: 2 ml Medical Decision Making Medical Records Attestation: I reviewed the patient's medical records. Home Medications Current Medication List: was personally reviewed by me Laboratory Data Attestation: I reviewed the patient's lab results. Result diagrams: 12/21/18 09:40 12/21/18 09:40 Lab Results 12/21/18 12/21/18 12/21/18 Range/Units 09:40 09:40 09:40 WBC 6.84 (4.8-10.8) K/uL RBC 4.73 (4.7-6.1) M/uL Hgb 14.7 (14.0-18.0) g/dL POC Hgb (14.0-18.0) g/dl Hct 43.0 (42-52) % POC Hct (42-52) % MCV 90.9 (80-100) fL MCH 31.1 (25-34) pg MCHC 34.2 (32-36) g/dL RDW Std Deviation 44.9 (36.4-46.3) fL RDW Coeff of Priya 13.5 (11.5-14.5) % Plt Count 251 (130-400) K/uL MPV 9.7 (7.4-10.4) fL Immature Gran % (Auto) 0.6 % Neut % (Auto) 67.3 % Lymph % (Auto) 23.7 % [place] % (Auto) 6.0 % Eos % (Auto) 2.3 % Baso % (Auto) 0.1 % Immature Gran # (Auto) 0.04 H (0.00-0.02) K/uL Neut # (Auto) 4.60 (1.4-6.5) K/uL Lymph # (Auto) 1.62 (1.2-3.4) K/uL [place] # (Auto) 0.41 (0.11-0.59) K/uL Eos # (Auto) 0.16 (0-0.5) K/uL Baso # (Auto) 0.01 (0-0.2) K/uL PT 10.3 (9.0-12.0) Seconds INR 1.0 (0.9-1.1) APTT 27.2 (21.0-31.0) Seconds PTT Ratio 1.0 POC Sodium (135-144) mEq/L Sodium 137 (136-145) mmol/L POC Potassium (3.3-5.0) mEq/L Potassium 3.9 (3.5-5.1) mmol/L POC Chloride (101-112) mEq/L Chloride 105 (98-107) mmol/L Carbon Dioxide 25 (21-32) mmol/L POC Total CO2 (24-31) mEq/l Anion Gap 8.0 (3-11) POC Anion Gap (16-25) mmol/L POC BUN (7-18) mg/dl BUN 19 H (7-18) mg/dl Creatinine 1.06 (0.6-1.4) mg/dl POC Creatinine (0.6-1.3) mg/dl Est Cr Clr Drug Dosing 71.7 ml/min Est GFR ( Amer) 78.1 Est GFR (Non-Af Amer) 67.4 BUN/Creatinine Ratio 17.5 (10-20) Glucose 127 H (70-99) mg/dl POC Glucose (other) (70-99) mg/dl Calcium 9.3 (8.5-10.1) mg/dl POC Ioniz Calcium Geovanni (1.12-1.32) mmol/l Magnesium (1.8-2.4) mg/dl POC Troponin I (0-0.045) ng/ml Troponin I < 0.015 (0-0.045) ng/ml TSH (0.300-4.500) uIu/ml 12/21/18 12/21/18 12/21/18 Range/Units 09:40 09:40 09:53 WBC (4.8-10.8) K/uL RBC (4.7-6.1) M/uL Hgb (14.0-18.0) g/dL POC Hgb 14.3 (14.0-18.0) g/dl Hct (42-52) % POC Hct 42 (42-52) % MCV (80-100) fL MCH (25-34) pg MCHC (32-36) g/dL RDW Std Deviation (36.4-46.3) fL RDW Coeff of Priya (11.5-14.5) % Plt Count (130-400) K/uL MPV (7.4-10.4) fL Immature Gran % (Auto) % Neut % (Auto) % Lymph % (Auto) % [place] % (Auto) % Eos % (Auto) % Baso % (Auto) % Immature Gran # (Auto) (0.00-0.02) K/uL Neut # (Auto) (1.4-6.5) K/uL Lymph # (Auto) (1.2-3.4) K/uL [place] # (Auto) (0.11-0.59) K/uL Eos # (Auto) (0-0.5) K/uL Baso # (Auto) (0-0.2) K/uL PT (9.0-12.0) Seconds INR (0.9-1.1) APTT (21.0-31.0) Seconds PTT Ratio POC Sodium 140 (135-144) mEq/L Sodium (136-145) mmol/L POC Potassium 3.9 (3.3-5.0) mEq/L Potassium (3.5-5.1) mmol/L POC Chloride 103 (101-112) mEq/L Chloride (98-107) mmol/L Carbon Dioxide (21-32) mmol/L POC Total CO2 27 (24-31) mEq/l Anion Gap (3-11) POC Anion Gap 16.0 (16-25) mmol/L POC BUN 17 (7-18) mg/dl BUN (7-18) mg/dl Creatinine (0.6-1.4) mg/dl POC Creatinine 1.1 (0.6-1.3) mg/dl Est Cr Clr Drug Dosing ml/min Est GFR ( Amer) Est GFR (Non-Af Amer) BUN/Creatinine Ratio (10-20) Glucose (70-99) mg/dl POC Glucose (other) 130 H (70-99) mg/dl Calcium (8.5-10.1) mg/dl POC Ioniz Calcium Geovanni 1.11 L (1.12-1.32) mmol/l Magnesium 2.0 (1.8-2.4) mg/dl POC Troponin I (0-0.045) ng/ml Troponin I (0-0.045) ng/ml TSH 0.549 (0.300-4.500) uIu/ml 12/21/18 Range/Units 09:56 WBC (4.8-10.8) K/uL RBC (4.7-6.1) M/uL Hgb (14.0-18.0) g/dL POC Hgb (14.0-18.0) g/dl Hct (42-52) % POC Hct (42-52) % MCV (80-100) fL MCH (25-34) pg MCHC (32-36) g/dL RDW Std Deviation (36.4-46.3) fL RDW Coeff of Priya (11.5-14.5) % Plt Count (130-400) K/uL MPV (7.4-10.4) fL Immature Gran % (Auto) % Neut % (Auto) % Lymph % (Auto) % [place] % (Auto) % Eos % (Auto) % Baso % (Auto) % Immature Gran # (Auto) (0.00-0.02) K/uL Neut # (Auto) (1.4-6.5) K/uL Lymph # (Auto) (1.2-3.4) K/uL [place] # (Auto) (0.11-0.59) K/uL Eos # (Auto) (0-0.5) K/uL Baso # (Auto) (0-0.2) K/uL PT (9.0-12.0) Seconds INR (0.9-1.1) APTT (21.0-31.0) Seconds PTT Ratio POC Sodium (135-144) mEq/L Sodium (136-145) mmol/L POC Potassium (3.3-5.0) mEq/L Potassium (3.5-5.1) mmol/L POC Chloride (101-112) mEq/L Chloride (98-107) mmol/L Carbon Dioxide (21-32) mmol/L POC Total CO2 (24-31) mEq/l Anion Gap (3-11) POC Anion Gap (16-25) mmol/L POC BUN (7-18) mg/dl BUN (7-18) mg/dl Creatinine (0.6-1.4) mg/dl POC Creatinine (0.6-1.3) mg/dl Est Cr Clr Drug Dosing ml/min Est GFR ( Amer) Est GFR (Non-Af Amer) BUN/Creatinine Ratio (10-20) Glucose (70-99) mg/dl POC Glucose (other) (70-99) mg/dl Calcium (8.5-10.1) mg/dl POC Ioniz Calcium Geovanni (1.12-1.32) mmol/l Magnesium (1.8-2.4) mg/dl POC Troponin I < 0.03 (0-0.045) ng/ml Troponin I (0-0.045) ng/ml TSH (0.300-4.500) uIu/ml Imaging Data Radiologist's Impression: Radiology results as stated below per my review and the radiologist's interpretation: XR chest 1V portable CLINICAL HISTORY: 78 years-old Male presenting with Chest Pain. TECHNIQUE: Portable upright AP view of the chest was obtained. COMPARISON: 06/23/2018. FINDINGS: Median sternotomy wires and left atrial appendage occlusion device noted. Atherosclerosis and tortuosity of the thoracic aorta. Cardiac silhouette moderately enlarged. Partial obscuration of the left heart border. Pulmonary vascular prominence. Basilar predominant left lung opacity and bronchial wall thickening. No large effusion or pneumothorax. Degenerative changes of the left glenohumeral joint. Upper abdomen normal. IMPRESSION: 1. Apparent left basilar infiltrate resulting in partial obscuration of the left heart border. This may represent a prominent epicardial fat pad or developing infiltrate. Consider PA and lateral views for further assessment. 2. Cardiac megaly with mild volume overload. Electronically signed by: Claudy Frias M.D. 12/21/2018 10:54 AM ECG Data Additional Comments: 0933: First ECG: Vtach with a rate of 168. QRS 138. QTC 528. No ST elevation or ST depression. 0948: Second ECG: Status post 150mg bolus of Amiodarone. Vtach with a rate of 138. QRS 144. QTC 548. No ST elevation or ST depression. 0956: Third ECG: Shelter through second 150mg bolus of Amiodarone. Afib with a rate of 78. QRS and QTC within normal limits. No ST elevation or ST depression. 1002: Fourth ECG: Vtach with a rate of 123. QRS 146. QTC 561. No ST elevation or ST depression. 1008: Fifth ECG: Status post second 150mg bolus. Wide complex rhythm. Irregular. Rate of 72. Frequent PVCs. QRS 126. QTC 438. No ST elevation or ST depression. 1017: Sixth ECG: Wide complex tachycardia with a rate of 119. QRS 158. QTC 554. No ST elevation or ST depression. Blood Pressure Blood Pressure Findings: Normal blood pressure MDM Narrative 0930: Past medical records reviewed. The patient was evaluated in room C9, and a complete history and physical examination were performed. Patient was immediately seen on arrival. On the surveillance system monitor he was displaying a wide complex tachycardia with a rate in the 170s. His blood pressure was stable. Defibrillation/cardioversion pads were placed on the patient's chest. 2 large- bore IVs were obtained. First ECG: Vtach with a rate of 168. QRS 138. QTC 528. No ST elevation or ST depression. Normal saline bolus initiated. Aspirin given. Patient will be bolused with amiodarone 150 mg IV over 10 minutes given his wide complex tachycardia as well as stable blood pressure. 0948: Second ECG: Status post 150mg bolus of Amiodarone. Vtach with a rate of 138. QRS 144. QTC 548. No ST elevation or ST depression. Patient's blood pressure remained stable. Will repeat the 150 mg IV bolus of amiodarone over 10 minutes again. 0956: Third ECG: Shelter through second 150mg bolus of Amiodarone. Afib with a rate of 78. QRS and QTC within normal limits. No ST elevation or ST depression. 1002: Patient appear to momentarily go into an atrial fibrillation rhythm with a rate less than 100 but then soon went back into a wide-complex tachycardia with a rate in the 120s. Fourth ECG: Vtach with a rate of 123. QRS 146. QTC 561. No ST elevation or ST depression. Ativan 1 mg given. 1004: [id number] labs show negative troponin and a potassium that was within normal limits. I discussed the case with Dr. Tamayo-Cardiology who agrees with the treatment plan and will come evaluate the patient. 1008: Labs within normal limits. Fifth ECG: Status post second 150mg bolus. Wide complex rhythm. Irregular. Rate of 72. Frequent PVCs. QRS 126. QTC 438. No ST elevation or ST depression. Patient will be started on amiodarone drip. 1017: Dr. AzulCardiology is at the patient's bedside. Patient on amiodarone drip. Sixth ECG: Wide complex tachycardia with a rate of 119. QRS 158. QTC 554. No ST elevation or ST depression. Dr. Sweeney states to begin the patient on heparin drip, no bolus. 1108: Dr. Tamayo evaluated the patient at bedside. He and Dr. Saha Cardiology take a look at the rhythm strips as well as EKGs. They feel as though it is less likely V. tach and more likely to be possibly atrial flutter versus AVNRT. Dr. Tamayo states he prefers to stop the amiodarone drip at this time, get a continuous EKG recording, and then push 6 mg of adenosine to determine the patient's underlying rhythm. 1122: Dr. SahaCardiology and Dr. Tamayo-Cardiology are at the patient's bedside. The amiodarone has been stopped. The patient was given adenosine. The patient is in AVNRT. Dr. Aguillon-Cadiology recommends restarting the amiodarone drip. They state to admit to the PACU. 1134: I discussed the case with Lola Coulter PA-C who will further evaluate the patient. Impression & Plan Wide-complex tachycardia Critical Care Time I have personally spent greater than 120 minutes of critical care time in the direct management of this patient. This includes bedside care, interpretation of diagnostic studies, and testing, discussion with consultants, patient, and family members, and other required patient management activities. This 120 minutes is in excess of all separately billable procedures. Critical Care Time: Yes Total Critical Care Time: 120 Discharge Plan Visit Data Chief Complaint: Arrhythmia/Palpitations Stated Complaint: RAPID HEART IRREGULAR ED Provider: Justice Seay Discharge Problem: Wide-complex tachycardia Patient Disposition: Being Evaluated by Hospitalist Discharge Instructions Interventions: ED Discharge Assessment Last Done: 12/21/18 13:55 The catyibe's documentation has been prepared under my direction and personally reviewed by me in its entirety. I confirm that the note above accurately reflects all work, treatment, procedures, and medical decision making performed by me.
[2018-12-21] MEDS ORDERED: ADENOSINE IV SOLN 3 MG/ML 2 ML VIAL IV ONE (11:10)
[2018-12-21] MEDS ORDERED: ADENOSINE IV SOLN 3 MG/ML 2 ML VIAL IV STA (11:33)
[2018-12-21] MEDS: SODIUM CHLORIDE 0.9% 1000ML 1,000 ML IV SCH ×2 (11:34→21:41)
--- NOTE | 2018-12-21 12:00 | Cardiology Consultation ---
Date of Consultation December 21, 2018 Assessment & Plan (1) AVNRT (AV bia re-entry tachycardia): After review of the patient's history and EKG tracings as well as telemetry, amiodarone infusion was placed on hold at 1114 and 6 mg of IV adenosine was administered under the supervision of the undersigned. The patient's regular R to R interval tachycardia at a rate of 122 bpm slowed transiently to 30 bpm with what appears to be a junctional rhythm without discernible atrial activity and no evidence of flutter waves. One sinus beat was noted, and the tachycardia was reinitiated. Metoprolol 2.5 mg IV was then administered after the patient recovered from the adenosine, and the amiodarone infusion was reinitiated. On telemetry, intermittent termination of the tachycardia was noted, but then it resumes. Per review of the patient's 12-lead EKG, the right bundle branch block morphology appears very similar to his previous baseline EKG tracings with the exception of the QRS complex is a bit wider with previous baseline of 110 ms as compared to 138 ms. EKG is suggestive of an AV bia reentrant tachycardia versus an atypical (perhaps left-sided) atrial flutter. Based on the response to adenosine therapy, it is felt that the ventricular tachycardia has been excluded, and this does not appear to be atrial flutter either, but rather AV bia reentrant tachycardia. At present, will continue IV amiodarone and the patient's prior to hospital oral metoprolol. We will continue his chronic dose of aspirin. Since this does not appear to be atrial fibrillation or atrial flutter, it is not felt that systemic anticoagulation for stroke prophylaxis is necessary. Case was discussed with Dr. Aguillon , of EP who joined me in assessing the patient in the ED, and the patient is going to be seen in EP consultation for further assessment. Will plan to have patient admitted to the [facility] service, 2nd floor ICU be requested. Will keep patient NPO after Midnight for possible EP study am of 12/22. 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 Continue Nexium for GI prophylaxis. (4) Polymyalgia rheumatica: Continue chronic prednisone dose, 5 mg p.o. daily History of Present Illness History of Present Illness Anson Marie is a 78 year old male seen in stat cardiology consultation per the request of Dr Seay of Emergency Medicine for cardiology consultation regarding a symptomatic wide complext tachycardia. The patient is well-known to the undersigned with most recent outpatient visit with me having been on 11/25/17. He has a complex cardiac history as delineated below. He has been in his normal state of health for the last few weeks. With the assistance of his wallcovering texturer, his prednisone dose has slowly been tapered down to his previous long-standing dose of 5 mg daily as of a week ago. He has noted recent increase in musculoskeletal aches and pains in his shoulders however for which she has been taking Tylenol. This morning at 810 he was getting out of the shower and had an abrupt onset of profound shortness of breath. He checked his heart rate with his smart watch and noted a heart rate in the range of 180 bpm which is much higher than his typical baseline of 50-60 bpm. He subsequently called his significant other, and he came to the emergency room where initial 12-lead EKG performed on at 9 33 a.m. revealed a wide-complex tachycardia 168 bpm with right bundle branch block, left anterior fascicular block morphology, and QRS duration of 138 ms . Patient received a bolus of IV amiodarone and then an amiodarone infusion been initiated before my arrival. Upon my arrival the patient was still in the wide complex tachycardia however the rate was improved to 122 bpm and the patient noted feeling improved. Serial EKG tracings were performed, and telemetry was reviewed revealing intermittent slowing of the patient's ventricular rate with associated ectopy and the tachycardia resumes. PAST MEDICAL and SURGIGAL HISTORY: 12/05/17- presented with symptoms of exertional shortness of breath, was found to have atrial flutter with rapid ventricular response and cardiomyopathy, right bundle branch block, LVEF in the 30% range 12/09/17-underwent caval tricuspid isthmus ablation for right-sided typical atrial flutter at [facility] performed by Dr Aguillon 01/20/2018: [facility] radiographer cardiac catheterization revealed 3 asymptomatic episodes of wide complex tachycardia, at that time this was felt to be nonsustained ventricular tachycardia 01/22/18-repeat echocardiogram revealed normalization of the LV EF, 56%, however patient was still experiencing exertional shortness of breath 01/29/2018-cardiac catheterization revealed multivessel coronary artery disease 01/30/2018-CABGx4 with internal mammary to LAD, reverse saphenous vein graft from aorta to obtuse marginal 1 to posterolateral, and reverse saphenous vein graft from aorta to diagonal, with endoscopic saphenous vein harvesting, and application of left atrial appendage clip on by Dr. Cruz. 04/20/18-04/22/18: Admission in [place], acute pericarditis 05/11/18: Repeat admission, recurrent pericarditis symptoms after prednisone discontinued, discharged on prednisone taper and colchicine. 05/2018:Admission, [facility], recurrent pericarditis 07/07/2018: Plaquenil added. 08/22/2018: Amiodarone discontinued. Colchicine reduced to 0.6 milligrams 1 time per day. 11/25/18: no longer on Plaquenil. Prednisone down to 7.5 mg daily , compared to 15 mg daily in July 2018 cardio visit -Colchicine discontinued, 11/25/2018 History is otherwise notable for long-standing history of polymyalgia rheumatica , HLA-B27 spondyloarthropathy, and lichen planus. 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 Allergies Allergy/AdvReac Type Severity Reaction Status Date / Time No Known Allergies Allergy Unverified 12/21/18 10:21 Home Medications Home Medications Medication Instructions Recorded Confirmed Type aspirin [Aspir-81] 81 mg PO DAILY 12/21/18 12/21/18 History atorvastatin 40 mg PO DAILY 12/21/18 12/21/18 History calcium carbonate-vitamin D3 2 tab PO DAILY 12/21/18 12/21/18 History [Calcium 500 + D] furosemide 20 mg PO [id number] 12/21/18 12/21/18 History gabapentin 300 mg PO BID 12/21/18 12/21/18 History magnesium oxide 400 mg PO DAILY 12/21/18 12/21/18 History metoprolol succinate 25 mg PO DAILY 12/21/18 12/21/18 History prednisone 7.5 mg PO UD 12/21/18 12/21/18 History risedronate 35 mg PO WK 12/21/18 12/21/18 History tamsulosin 0.4 mg PO BID 12/21/18 12/21/18 History Patient History Medical History Dyslipidemia (Chronic) HTN (hypertension) (Chronic) Lichen planus (Chronic) HLA-B27 spondyloarthropathy (Chronic) GERD (gastroesophageal reflux disease) (Chronic) Coronary artery disease (Chronic) Osteoporosis (Chronic) Osteoarthritis (Chronic) BPH (benign prostatic hyperplasia) (Chronic) CKD (chronic kidney disease), stage III (Chronic) Polymyalgia rheumatica (Chronic) Surgical History Hx of four vessel coronary artery bypass graft (Chronic) "01/30/18 at [facility]" Hx of prior ablation treatment (Chronic) "12/09/17" Social History Feels Safe at Home: Yes Smoking Status: Former smoker Review of Systems 10 point review of systems is reviewed and is negative with the exception of that above, no recent fever or chill-like illness Physical Exam 2 Vital Signs (Past 24 Hours): Last Vital Signs Temp 36.6 C 12/21/18 09:25 Pulse 124 H 12/21/18 10:40 Resp 36 H 12/21/18 10:40 BP 123/95 12/21/18 10:40 Pulse Ox 96 12/21/18 10:40 Physical Exam: General: no acute distress and stated age Eyes: conjunctiva are pink and non-injected, sclera clear Neck: normal jugular venous pulse, no hepatojugular reflux Chest: normal shape and normal respiratory effort Lungs: clear to auscultation and percussion Cardiac Exam: -Tachycardic, no murmurs, rubs, or gallops, no jugular venous distention Abdomen: abdomen soft, non-tender, no abnormal masses and no hepatosplenomegaly Extremities: no edema and no cyanosis Neuro:awake, coversant, follows commands, no focal motor deficits Psych: appropriate affect and insight. Results & Data Laboratory Results Cardiac Enzymes 12/21/18 Range/Units 09:40 Troponin I < 0.015 (0-0.045) ng/ml Coagulation 12/21/18 Range/Units 09:40 PT 10.3 (9.0-12.0) Seconds APTT 27.2 (21.0-31.0) Seconds CBC 12/21/18 Range/Units 09:40 WBC 6.84 (4.8-10.8) K/uL RBC 4.73 (4.7-6.1) M/uL Hgb 14.7 (14.0-18.0) g/dL Hct 43.0 (42-52) % Plt Count 251 (130-400) K/uL Neut # (Auto) 4.60 (1.4-6.5) K/uL Lymph # (Auto) 1.62 (1.2-3.4) K/uL [place] # (Auto) 0.41 (0.11-0.59) K/uL Eos # (Auto) 0.16 (0-0.5) K/uL Baso # (Auto) 0.01 (0-0.2) K/uL Comprehensive Metabolic Panel 12/21/18 Range/Units 09:40 Sodium 137 (136-145) mmol/L Potassium 3.9 (3.5-5.1) mmol/L Chloride 105 (98-107) mmol/L Carbon Dioxide 25 (21-32) mmol/L BUN 19 H (7-18) mg/dl Creatinine 1.06 (0.6-1.4) mg/dl Glucose 127 H (70-99) mg/dl Calcium 9.3 (8.5-10.1) mg/dl Intake and Output 12/20/18 12/21/18 12/21/18 22:59 06:59 14:59 Intake Total 1000 / 1000 Balance 1000 / 1000 Intake: IV 1000 / 1000 Nss 1000ML 1,000 ml @ 999 mls/ 1000 / 1000 hr IV .Q1H1M [facility] Rx#:[id number] Other: Weight 104 kg Patient Weight 12/22/18 06:59 Weight 104 kg
--- NOTE | 2018-12-21 12:44 | History & Physical Report ---
Date of Service December 21, 2018 Assessment & Plan (1) AVNRT (AV bia re-entry tachycardia): This is a 78-year-old male who has significant PMH CAD status post CABG 4 in 2017, hx of aflutter status post caval triscuspid isthmus ablation in 12/09/17, hx of recurrent pericarditis, hypertension, HLD, PMR, HLA-B27, Lichen Planus, Chronic steroid therapy, GERD, BPH who presents to [facility] ED secondary to tachycardia and SOB. In ED patient was noted to be in wide-complex tachycardia with heart rate in 160s. Was given initial IV amiodarone 150 mg bolus and transition to infusion with minimal relief. Cardiology was called down for stat evaluation. Recommended IV adenosine which revealed a AV bia reentrant tachycardia most likely is contributing cause to wide-complex tachycardia. It was felt there was no atrial fibrillation or atrial flutter. CBC, CMP, troponin, TSH relatively unremarkable except for mild hyperglycemia. -admit to PCU -appreciate cardiology Dr. Tamayo and Dr. Aguillon recommendations -Continue IV amiodarone and home medication regimen per cardiology -no need for systemic anticoagulation at this time given rhythm AVRNT and not Afib/flutter -NPO after midnight for EP procedure -CBC, BMP, A1C in a.m. 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 Abdullahi Rheumatology (7) Polymyalgia rheumatica: -continue prednisone 5mg daily -follows Dr. bAdullahi Rheumatology (8) GERD (gastroesophageal reflux disease): -continue PPI (9) BPH (benign prostatic hyperplasia): -continue flomax (10) DVT prophylaxis: - SCDS for now, re-eval after EP procedure in a.m. Disposition: D/C to home when able Follow up: PCP Dr. Castorena upon discharge Patient was seen in collaboration with Dr. Grossman, please see addendum. Case was discussed with cardiology Dr. Tamayo regarding assessment and treatment plan. History of Present Illness Chief Complaint: Tachycardia and SOB x 1 day. Primary Care Provider: Demi Castorena This is a 78-year-old male who has significant PMH CAD status post CABG 4 in 2017, Hx of aflutter status post caval triscuspid isthmus ablation in 12/09/17, hx of recurrent pericarditis, hypertension, HLD, PMR, HLA-B27, Lichen Planus, Chronic steroid therapy, GERD, BPH who presents to [facility] ED secondary to tachycardia and SOB. Pt was notably getting out of the shower when he developed acute SOB. His smart watch alerted him of HR of 180bpm. He presented to ED. Initial ecg performed at 9:33am revealed wide complex tachycardia 168bpm. Initially received bolus of IV amiodarone and then amio infusion. Cardiology was consulted who recommended IV adenosine 6mg. Serial ECG performed and per cardiology felt to be in a AVNRT. We have been called for admission to PCU for cardiac monitoring and planned EP procedure in a.m. Currently he is feeling much improved, "wiped out, tired." Denies recent illness, f/c/s, chest pain, current palpitations or sob, hemopytsis, n/v/d, change in bowel or bladder habits. He does elicit that his colchicine was recently stopped by cardiology for a recurrent pericarditis and given his recurrent pericarditis he required higher doses of chronic prednisone. He is currently back to his regimen of 5mg daily. Allergies Allergy/AdvReac Type Severity Reaction Status Date / Time No Known Allergies Allergy Unverified 12/21/18 10:21 Home Medications Home Medications Medication Instructions Recorded Confirmed Type aspirin [Aspir-81] 81 mg PO DAILY 12/21/18 12/21/18 History atorvastatin 40 mg PO DAILY 12/21/18 12/21/18 History calcium carbonate-vitamin D3 2 tab PO DAILY 12/21/18 12/21/18 History [Calcium 500 + D] furosemide 20 mg PO 4XWK 12/21/18 12/21/18 History gabapentin 300 mg PO BID 12/21/18 12/21/18 History magnesium oxide 400 mg PO DAILY 12/21/18 12/21/18 History metoprolol succinate 25 mg PO DAILY 12/21/18 12/21/18 History prednisone 5 mg PO UD 12/21/18 12/21/18 History risedronate 35 mg PO WK 12/21/18 12/21/18 History tamsulosin 0.4 mg PO BID 12/21/18 12/21/18 History Past Med/Surg History Family History Mother , 44 Cirrhosis, Onset Age: 44 Father , 66 Lung cancer CAD (coronary artery disease) Heart attack Other HTN (hypertension) Social History marital status: Single Current Living Situation: Alone Current Living Situation Comment: Lives alone, has significant other that lives next door current occupational status: retired 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 [employer] Other Information That Helps Us Care for You: No Feels Safe at Home: Yes Safety Concerns: Feels Safe At This Time Smoking Status: Former smoker Smoking End Date: 1991 Second Hand Exposure: No Tobacco Cessation Education Requested by Patient: No Hx Alcohol Use: Yes Alcohol type: beer and wine Alcohol Intake Frequency: a few times a week Alcohol Intake Frequency Comment: 1 glass of wine daily Hx Substance Use: No Beliefs That Will Affect Care: None Preferred Language: Ukrainian Communication Ability: Effective Proposal Analyst Required: No Review of Systems All systems reviewed & are unremarkable except as noted in HPI & below Physical Exam 2 Vital Signs (Past 24 Hours): Last Vital Signs Temp 36.6 C 12/21/18 09:25 Pulse 59 L 12/21/18 11:46 Resp 26 H 12/21/18 11:46 BP 130/80 12/21/18 11:46 Pulse Ox 94 12/21/18 11:46 Physical Exam: Gen: WD/WN, M, NAD, sitting up in bed, appears fatigued, flat affected, conversing easily Head: Normocephalic, Atraumatic Eyes: Sclera normal, no conjunctival injection, PERRLA, EOMI ENT: Gross hearing intact, normal pharynx, mucous membranes moist Neck: supple, no adenopathy, No JVD, no bruit, Resp: Clear to auscultation b/l, no wheeze, rales, rhonchi. Normal insp/exp effort, no accessory muscle use CV: Regular rate, regular rhythm, no murmur, rub, gallop, or ectopy Abd: +BS x 4, soft, nontender, nondistended Musculoskeletal: moves extremities active rom x 4, strength intact, good visiting housekeeper strength Extremities: No edema bilaterally Skin: warm, moist, no rash, negative turgor, cap refill < 2sec Neuro: Alert and oriented x 3, speech normal, good mood/affect, cran nerve 2-12 intact grossly : deferred Results & Data Laboratory Results Short CBC 12/21/18 Range/Units 09:40 WBC 6.84 (4.8-10.8) K/uL Hgb 14.7 (14.0-18.0) g/dL Hct 43.0 (42-52) % Plt Count 251 (130-400) K/uL BMP 12/21/18 09:40 Sodium 137 Potassium 3.9 Chloride 105 Carbon Dioxide 25 BUN 19 H Creatinine 1.06 Glucose 127 H Calcium 9.3 Cardiac Enzymes 12/21/18 Range/Units 09:40 Troponin I < 0.015 (0-0.045) ng/ml Diagnostic Findings CXR: IMPRESSION: 1. Apparent left basilar infiltrate resulting in partial obscuration of the left heart border. This may represent a prominent epicardial fat pad or developing infiltrate. Consider PA and lateral views for further assessment. 2. Cardiac megaly with mild volume overload. ECG Rate (beats per minute): 168 Rhythm: other (wide complex tachycardia) Code Status & VTE Plan Code Status Full Code VTE Prophylaxis Plan VTE Prophylaxis will be ordered: Yes Reason for no VTE drug order: Treatment not indicated (patient to undergo EP procedure in a.m. will reassess chemical prophylaxis after procedure, we will implement SCDs) Supervising Physician Co-Signing Physician Notes I have seen and assessed the patient with our team's physician medical office assistant and agree with the plan as above and would like to comment further that since being evaluated by hospitalist team the patient's heart rates in the 50s with sinus arrythmia. He is is planned to have evaluation by cardiology Electrophysiology service for possible ablation to treat AVNRT (AV bia re-entry tachycardia). Patient is currently on IV amiodarone and patient does not recommend systemic anticoagulation at this time and recommend SCDs for now. Patient is also on metoprolol other medical management as documented by physician medical office assistant as above On exam General: no acute distress Lungs: Clear to ascultation Heart: bradycardia Abdomen: soft, nontender, positive bowel sounds Extremities: no gross edema neuro: no focal neurological deficits, awake and alert and verbal _ (1) BPH (benign prostatic hyperplasia) Lower urinary tract symptom presence: unspecified whether lower urinary tract symptoms present Qualified Code(s): N40.0 - Benign prostatic hyperplasia without lower urinary tract symptoms (2) Coronary artery disease Associated angina: without angina Coronary Disease-Associated Artery/Lesion type: bypass graft [place] vs. transplanted heart: [place] heart Qualified Code( s): I25.810 - Atherosclerosis of coronary artery bypass graft(s) without angina pectoris (3) GERD (gastroesophageal reflux disease) Esophagitis presence: esophagitis presence not specified Qualified Code(s): K21.9 - Gastro-esophageal reflux disease without esophagitis (4) HTN (hypertension) Hypertension type: essential hypertension Qualified Code(s): I10 - Essential (primary) hypertension
[2018-12-21] MEDS ORDERED: PERFLUTREN LIPID MICROSPHERE (DEFINITY) IV ONE (13:39)
[2018-12-21] MEDS ORDERED: ONDANSETRON INJ 2 MG/ML 2 ML VIAL IV PRN (14:24)
[2018-12-21] MEDS ORDERED: NITROGLYCERIN SL 0.4 MG/TAB TAB SL PRN (14:24)
[2018-12-21] MEDS ORDERED: POLYETHYLENE (MIRALAX) 17 GM PACK PO PRN (14:24)
[2018-12-21] MEDS ORDERED: MAGNESIUM HYDROXIDE SUSP 30 ML UDC PO PRN (14:24)
[2018-12-21] MEDS ORDERED: ALUMINUM/MAGNESIUM SUSP 30 ML UDC PO PRN (14:24)
--- NOTE | 2018-12-21 14:36 | Cardiology Consultation ---
Date of Consultation December 21, 2018 Assessment & Plan (1) AVNRT (AV bia re-entry tachycardia): I believe this is most likely etiology of the patient's rhythm abnormality. While he does have a wide complex tachycardia, the morphology of the QRS does not differ from baseline during these episodes. It appears to be a typical right bundle branch block. There does appear to be some retrograde atrial activity and pseudo R' waves in the right precordial leads during tachycardia. This is suggestive of AVNRT. The rhythm is certainly not a ventricular tachycardia. With adenosine administration the rhythm terminated without evidence of an atrial flutter. It is possible that the rhythm disturbance initially evaluated in May of last year was AVNRT. He was started on amiodarone infusion is rhythm appears to have stabilized. However, this does not appear to be a good long-term solution given the potential toxicity of amiodarone over time. I did discuss the option of a repeat study and possible ablation for what appears to be AVNRT. I believe the success rate would be high in the risks low. I think this office a better option than medical therapy. I explained the risks benefits and alternatives to the patient his and they are agreeable. Will plan on proceeding tomorrow. I will continue amiodarone infusion for the time being. No current indication for anticoagulation Present on Admission?: Yes (2) History of atrial flutter: No clinical recurrence. Interestingly, the time of his initial flutter ablation there did not appear to be dual AV bia physiology. Present on Admission?: No (3) Sinus node dysfunction: Upon termination of his tachyarrhythmia he appears to have a junctional rhythm. There are periods on telemetry monitoring with this competes with a sinus rhythm. This suggests an element of sinus node dysfunction. Will have an opportunity to better evaluate his rhythm once the AVNRT is addressed. We will test his conduction during his EP study planned for tomorrow. Depending on the results and monitoring subsequent to ablation he may be a good candidate for permanent pacing. History of Present Illness Reason for Consultation: SVT Requesting Physician: Belkis Attending Physician: Vinnie Grossman MD History of Present Illness The patient is a 78-year-old gentleman with a history of atrial flutter and coronary artery disease who presented to [facility] Emergency room with symptoms of palpitations, lightheadedness and tachycardia. It seems that the patient had been feeling relatively well until this morning when he exited the shower and felt a tachycardia. This was associated with some mild dizziness. He applied a heart rate monitor and noticed a sustained high heart rate. It seems that the high heart rate would resolve itself temporarily but then resume. Due to the sustained nature of the tachycardia and the associated symptoms he presented to [facility] for evaluation. In the emergency room he was discovered to have a wide complex tachycardia. He was noted to have spontaneous resolution and resumption of the tachycardia. Adenosine was administered with termination of the tachycardia. This resulted in what appeared to be a junctional rhythm with atrial ectopy. Patient frequently developed recurrent and sustained episodes of the tachycardia. In early 2017 the patient had evidence of atypical atrial flutter and associated cardiomyopathy. He did undergo a standard caval tricuspid isthmus ablation without documented recurrence of atrial flutter. His LV function resolved. He was later discovered to have an element of coronary disease requiring surgical revascularization. During that procedure he will underwent left atrial appendage ligation. He did have postoperative atrial fibrillation and was on amiodarone for period of time. This appears to have been discontinued around July of last year. Patient states that occasionally he will notice some higher heart rates, but this generally occurs with exertion. He really has spontaneous and never has sustained episodes of a high heart rate. Generally is an active individual was able to perform moderate activity without limiting dyspnea or chest pains. He did have an episode of syncope last year that was associated with a sense of tachycardia. He was evaluated emergency room and felt to have atrial fibrillation that was paroxysmal. He has not had recurrent syncope. Allergies Allergy/AdvReac Type Severity Reaction Status Date / Time No Known Allergies Allergy Unverified 12/21/18 10:21 Home Medications Home Medications Medication Instructions Recorded Confirmed Type aspirin [Aspir-81] 81 mg PO DAILY 12/21/18 12/21/18 History atorvastatin 40 mg PO DAILY 12/21/18 12/21/18 History calcium carbonate-vitamin D3 2 tab PO DAILY 12/21/18 12/21/18 History [Calcium 500 + D] furosemide 20 mg PO 4XWK 12/21/18 12/21/18 History gabapentin 300 mg PO BID 12/21/18 12/21/18 History magnesium oxide 400 mg PO DAILY 12/21/18 12/21/18 History metoprolol succinate 25 mg PO DAILY 12/21/18 12/21/18 History prednisone 5 mg PO UD 12/21/18 12/21/18 History risedronate 35 mg PO WK 12/21/18 12/21/18 History tamsulosin 0.4 mg PO BID 12/21/18 12/21/18 History Patient History Family History Mother , 44 Cirrhosis, Onset Age: 44 Father , 66 Lung cancer CAD (coronary artery disease) Heart attack Other HTN (hypertension) Social History marital status: Single Current Living Situation: Alone Current Living Situation Comment: Lives alone, has significant other that lives next door current occupational status: retired 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 [employer] Other Information That Helps Us Care for You: No Feels Safe at Home: Yes Safety Concerns: Feels Safe At This Time Smoking Status: Former smoker Smoking End Date: 1991 Second Hand Exposure: No Tobacco Cessation Education Requested by Patient: No Hx Alcohol Use: Yes Alcohol type: beer and wine Alcohol Intake Frequency: a few times a week Alcohol Intake Frequency Comment: 1 glass of wine daily Hx Substance Use: No Beliefs That Will Affect Care: None Preferred Language: Azerbaijani Communication Ability: Effective Layer Up Required: No Review of Systems Complete. Pertinent positives noted in history of present illness. No other constitutional symptoms recently such as fevers or chills. Patient has been compliant with his medications. He does have some shoulder and arm discomfort is believed to be related to polymyalgia rheumatica. He has just recently tapered steroids which were used to treat this malady. Physical Exam Vital Signs (Past 24 Hours): Last Vital Signs Temp 36.6 C 12/21/18 09:25 Pulse 59 L 12/21/18 13:46 Resp 26 H 12/21/18 13:46 BP 138/74 12/21/18 13:46 Pulse Ox 96 12/21/18 13:46 Physical Exam: The patient is alert and oriented. Mood and affect appeared normal. He answered all questions appropriately. HEENT: Pupils are equal and reactive to light and accommodation. Extraocular movements are intact. The sclerae are anicteric. Neuro: Cranial nerves intact Neck: Patient's neck is supple. He has palpable carotid pulses bilaterally without bruits on auscultation. There is no evidence of jugular venous dist ention. The thyroid is not enlarged. Lungs: Clear to auscultation bilaterally. He has good air movement without use of accessory muscles. No rales wheezes or rhonchi. Cardiac: Heart demonstrates a regular rate and rhythm. Normal S1 and S2. No murmurs on examination. Chest: Well-healed sternotomy scar Pulses: The patient has palpable radial pulses bilaterally that are equal in intensity Extremities: There was no evidence of hypoperfusion. There is no cyanosis or clubbing. There is no edema. Skin: I did not appreciate any rashes on examination today. Results & Data Laboratory Results Abnormal Lab Results 12/21/18 12/21/18 12/21/18 09:40 09:40 09:40 WBC 6.84 RBC 4.73 Hgb 14.7 POC Hgb Hct 43.0 POC Hct MCV 90.9 MCH 31.1 MCHC 34.2 RDW Std Deviation 44.9 RDW Coeff of Priya 13.5 Plt Count 251 MPV 9.7 Immature Gran % (Auto) 0.6 Neut % (Auto) 67.3 Lymph % (Auto) 23.7 Avery % (Auto) 6.0 Eos % (Auto) 2.3 Baso % (Auto) 0.1 Immature Gran # (Auto) 0.04 H Neut # (Auto) 4.60 Lymph # (Auto) 1.62 Avery # (Auto) 0.41 Eos # (Auto) 0.16 Baso # (Auto) 0.01 PT 10.3 INR 1.0 APTT 27.2 PTT Ratio 1.0 POC Sodium Sodium 137 POC Potassium Potassium 3.9 POC Chloride Chloride 105 Carbon Dioxide 25 POC Total CO2 Anion Gap 8.0 POC Anion Gap POC BUN BUN 19 H Creatinine 1.06 POC Creatinine Est Cr Clr Drug Dosing 71.7 Est GFR ( Amer) 78.1 Est GFR (Non-Af Amer) 67.4 BUN/Creatinine Ratio 17.5 Glucose 127 H POC Glucose (other) Calcium 9.3 POC Ioniz Calcium Geovanni Magnesium POC Troponin I Troponin I < 0.015 TSH 12/21/18 12/21/18 12/21/18 09:40 09:40 09:53 WBC RBC Hgb POC Hgb 14.3 Hct POC Hct 42 MCV MCH MCHC RDW Std Deviation RDW Coeff of Priya Plt Count MPV Immature Gran % (Auto) Neut % (Auto) Lymph % (Auto) Avery % (Auto) Eos % (Auto) Baso % (Auto) Immature Gran # (Auto) Neut # (Auto) Lymph # (Auto) Avery # (Auto) Eos # (Auto) Baso # (Auto) PT INR APTT PTT Ratio POC Sodium 140 Sodium POC Potassium 3.9 Potassium POC Chloride 103 Chloride Carbon Dioxide POC Total CO2 27 Anion Gap POC Anion Gap 16.0 POC BUN 17 BUN Creatinine POC Creatinine 1.1 Est Cr Clr Drug Dosing Est GFR ( Amer) Est GFR (Non-Af Amer) BUN/Creatinine Ratio Glucose POC Glucose (other) 130 H Calcium POC Ioniz Calcium Geovanni 1.11 L Magnesium 2.0 POC Troponin I Troponin I TSH 0.549 12/21/18 09:56 WBC RBC Hgb POC Hgb Hct POC Hct MCV MCH MCHC RDW Std Deviation RDW Coeff of Priya Plt Count MPV Immature Gran % (Auto) Neut % (Auto) Lymph % (Auto) Avery % (Auto) Eos % (Auto) Baso % (Auto) Immature Gran # (Auto) Neut # (Auto) Lymph # (Auto) Avery # (Auto) Eos # (Auto) Baso # (Auto) PT INR APTT PTT Ratio POC Sodium Sodium POC Potassium Potassium POC Chloride Chloride Carbon Dioxide POC Total CO2 Anion Gap POC Anion Gap POC BUN BUN Creatinine POC Creatinine Est Cr Clr Drug Dosing Est GFR ( Amer) Est GFR (Non-Af Amer) BUN/Creatinine Ratio Glucose POC Glucose (other) Calcium POC Ioniz Calcium Geovanni Magnesium POC Troponin I < 0.03 Troponin I TSH Diagnostic Findings Echocardiogram performed today revealed preserved LV systolic function. ECG Additional Comments: Baseline EKG demonstrates a right bundle branch block.
[2018-12-21] MEDS ORDERED: AMIODARONE / D5W 360 MG/200 ML BAG IV SCH (15:57)
[2018-12-21] MEDS: AMIODARONE / D5W 360 MG/200 ML BAG IV SCH ×2 (16:42→21:43)
[2018-12-21] MEDS: TAMSULOSIN HCL 0.4 MG CAP PO SCH (20:06)
[2018-12-21] MEDS: GABAPENTIN 300 MG CAP PO SCH (20:06)
[2018-12-21] MEDS: ACETAMINOPHEN 325 MG TAB PO PRN (21:46)
[2018-12-22] MEDS: AMIODARONE / D5W 360 MG/200 ML BAG IV SCH (02:40)
[2018-12-22] MEDS ORDERED: AMIODARONE / D5W 360 MG/200 ML BAG IV SCH ×3 (05:47→17:20)
[2018-12-22 06:12] LABS: Hematocrit (blood only) 35.7 % (42-52); Hemoglobin 11.8 g/dL (14.0-18.0); Mean Corpuscular Hgb Conc 33.1 g/dL (32-36); Mean Corpuscular Volume 90.8 fL (80-100); Mean Platelet Volume 9.5 fL (7.4-10.4); Platelet Count 224 K/uL (130-400); RDW Coefficient of Variation 13.5 % (11.5-14.5); RDW Standard Deviation 45.1 fL (36.4-46.3); Red Blood Count 3.93 M/uL (4.7-6.1); White Blood Count 6.43 K/uL (4.8-10.8)
[2018-12-22 06:43] LABS: Estimated Average Glucose 111 mg/dl; Hemoglobin A1C 5.5 % (4.5-5.6)
[2018-12-22 06:49] LABS: Albumin Level 2.6 gm/dl (3.4-5.0); BUN Creatinine Ratio 14.8 (10-20); Bilirubin Direct 0.1 mg/dl (0-0.2); Calcium 7.9 mg/dl (8.5-10.1); Creatinine Clr Calc Pharmacy 88.3 ml/min; Est GFR (African American) 92.7; Est GFR (Non-African American) 79.9; Potassium 3.6 mmol/L (3.5-5.1)
[2018-12-22 06:51] LABS: Albumin Globulin Ratio 0.7 (0.9-2); Bilirubin,Total 0.5 mg/dl (0.2-1); Globulin 3.6 gm/dl (2.5-4.0); Total Protein 6.2 gm/dl (6.4-8.2)
[2018-12-22] MEDS: ATORVASTATIN 40 MG TAB PO SCH (08:39)
[2018-12-22] MEDS: GABAPENTIN 300 MG CAP PO SCH ×2 (08:39→20:31)
[2018-12-22] MEDS: predniSONE 5 MG TAB PO SCH (08:39)
[2018-12-22] MEDS: MAGNESIUM OXIDE 400 MG TAB PO SCH (08:40)
[2018-12-22] MEDS: CALCIUM 600MG + VIT D 400 IU TAB PO SCH ×2 (08:40→20:31)
[2018-12-22] MEDS: ASPIRIN 81 MG ECTAB PO SCH (08:40)
[2018-12-22] MEDS: TAMSULOSIN HCL 0.4 MG CAP PO SCH ×2 (08:40→20:31)
[2018-12-22] MEDS ORDERED: MIDAZOLAM HCL 5 MG/ML 1 ML VIAL ONE ×2 (08:51→09:32)
[2018-12-22] MEDS ORDERED: fentaNYL citrate 100 MCG/2 ML VIAL ONE ×3 (08:52→10:59)
--- NOTE | 2018-12-22 08:52 | Pre Anesthesia Assessment ---
Date of Service December 22, 2018 Pre Sedation Assessment Vital Signs Temp Pulse Pulse Pulse Resp BP BP 12/22/18 07:07 37.0 C 55 L 16 12/22/18 02:47 37.0 C 58 L 16 12/21/18 23:47 37.2 C 58 L 18 12/21/18 19:34 36.7 C 49 L 18 12/21/18 16:00 57 L 12/21/18 15:04 36.5 C 54 L 16 116/68 12/21/18 14:28 37.0 C 62 20 122/63 12/21/18 13:46 59 L 26 H 138/74 12/21/18 13:41 51 L 18 137/75 12/21/18 13:40 58 L 20 12/21/18 13:36 56 L 20 138/69 12/21/18 13:30 57 L 19 126/77 12/21/18 13:25 53 L 16 133/73 12/21/18 13:21 57 L 18 130/78 12/21/18 13:20 59 L 18 12/21/18 13:16 58 L 22 143/65 H 12/21/18 13:11 58 L 22 156/86 H 12/21/18 13:10 58 L 23 12/21/18 13:06 62 20 157/80 H 12/21/18 13:01 60 21 133/74 12/21/18 13:00 52 L 20 12/21/18 12:55 58 L 20 132/82 12/21/18 12:50 51 L 19 131/83 12/21/18 12:46 47 L 17 131/83 12/21/18 12:41 49 L 19 142/73 H 12/21/18 12:40 57 L 19 12/21/18 12:36 48 L 21 146/87 H 12/21/18 12:31 65 22 111/71 12/21/18 12:30 68 21 12/21/18 12:26 56 L 21 137/76 12/21/18 12:21 58 L 24 139/86 12/21/18 12:20 56 L 23 12/21/18 12:16 57 L 24 143/80 H 12/21/18 12:11 54 L 24 135/98 12/21/18 12:10 56 L 17 12/21/18 12:06 59 L 15 126/74 12/21/18 12:01 53 L 20 136/80 12/21/18 12:00 58 L 23 12/21/18 11:55 52 L 22 136/82 12/21/18 11:50 57 L 22 146/78 H 12/21/18 11:47 53 L 21 12/21/18 11:46 59 L 26 H 130/80 12/21/18 11:42 58 L 23 133/69 12/21/18 11:40 56 L 29 H 12/21/18 11:35 120 H 26 H 131/93 12/21/18 11:31 99 H 25 H 116/90 12/21/18 11:30 113 H 30 H 12/21/18 11:26 69 29 H 131/102 H 12/21/18 11:20 130 H 26 H 123/89 12/21/18 11:17 127 H 24 139/88 12/21/18 11:16 128 H 27 H 119/84 12/21/18 11:11 126 H 24 12/21/18 11:10 127 H 37 H 123/93 12/21/18 11:05 124 H 34 H 118/84 12/21/18 11:00 123 H 26 H 116/83 12/21/18 10:55 124 H 24 118/86 12/21/18 10:51 126 H 32 H 116/86 12/21/18 10:50 125 H 39 H 12/21/18 10:46 124 H 28 H 140/85 12/21/18 10:40 124 H 36 H 123/95 12/21/18 10:35 122 H 17 136/88 12/21/18 10:30 123 H 25 H 142/92 H 12/21/18 10:25 122 H 27 H 137/98 12/21/18 10:20 122 H 21 138/97 12/21/18 10:18 95 H 24 12/21/18 10:16 120 H 21 133/97 12/21/18 10:11 124 H 22 139/82 12/21/18 10:05 121 H 38 H 123/89 12/21/18 10:03 121 H 27 H 127/86 12/21/18 09:57 127 H 26 H 127/87 12/21/18 09:50 139 H 21 141/89 H 12/21/18 09:48 12/21/18 09:34 163 H 25 H 140/99 12/21/18 09:25 36.6 C 176 H 20 104/62 BP Pulse Ox 12/22/18 07:07 147/76 H 94 12/22/18 02:47 125/51 L 94 12/21/18 23:47 139/74 93 12/21/18 19:34 167/75 H 97 12/21/18 16:00 12/21/18 15:04 92 12/21/18 14:28 92 12/21/18 13:46 96 12/21/18 13:41 94 12/21/18 13:40 93 12/21/18 13:36 93 12/21/18 13:30 93 12/21/18 13:25 94 12/21/18 13:21 94 12/21/18 13:20 94 12/21/18 13:16 93 12/21/18 13:11 96 12/21/18 13:10 95 12/21/18 13:06 94 12/21/18 13:01 94 12/21/18 13:00 91 12/21/18 12:55 94 12/21/18 12:50 93 12/21/18 12:46 93 12/21/18 12:41 94 12/21/18 12:40 94 12/21/18 12:36 93 12/21/18 12:31 94 12/21/18 12:30 92 12/21/18 12:26 92 12/21/18 12:21 93 12/21/18 12:20 93 12/21/18 12:16 97 12/21/18 12:11 95 12/21/18 12:10 96 12/21/18 12:06 92 12/21/18 12:01 93 12/21/18 12:00 92 12/21/18 11:55 94 12/21/18 11:50 93 12/21/18 11:47 93 12/21/18 11:46 94 12/21/18 11:42 96 12/21/18 11:40 95 12/21/18 11:35 96 12/21/18 11:31 92 12/21/18 11:30 92 12/21/18 11:26 91 12/21/18 11:20 91 12/21/18 11:17 92 12/21/18 11:16 93 12/21/18 11:11 93 12/21/18 11:10 92 12/21/18 11:05 94 12/21/18 11:00 93 12/21/18 10:55 94 12/21/18 10:51 94 12/21/18 10:50 94 12/21/18 10:46 94 12/21/18 10:40 96 12/21/18 10:35 95 12/21/18 10:30 95 12/21/18 10:25 96 12/21/18 10:20 96 12/21/18 10:18 97 12/21/18 10:16 96 12/21/18 10:11 95 12/21/18 10:05 95 12/21/18 10:03 95 12/21/18 09:57 95 12/21/18 09:50 12/21/18 09:48 93 12/21/18 09:34 12/21/18 09:25 99 Cardiovascular + regular rate Respiratory + respiratory effort normal Pre-Sedation Airway Assessment Smoking Status: Former smoker Hx Sleep Apnea: No Hx Difficult Intubation: No Short, Thick Neck: No Thyromental Distance: > or= 3.5 Finger Breadths Oral Cavity: + WNL Mallampati Class: III ASA: ASA3 Procedure Planning Contraindications for Sedation: none Current Medications Reviewed: Yes Notes The planned sedation has been discussed with the patient. Informed Consent was obtained. I have identified the patient, determined the appropriateness of sedation and have assessed the patient immediately prior to the procedure. All medicine(s) and interventions are by my order.
[2018-12-22] MEDS ORDERED: predniSONE 5 MG TAB PO SCH (09:00)
[2018-12-22] MEDS ORDERED: ISOPROTERENOL 200 MCG / 50ML D5W IV ONE (09:37)
[2018-12-22] MEDS: FUROSEMIDE 20 MG TAB PO SCH (10:40)
[2018-12-22] MEDS ORDERED: AMIODARONE / D5W 150 MG/100 ML BAG IV STA (11:09)
[2018-12-22] MEDS ORDERED: AMIODARONE IV BOLUS / DRIP IV STA (11:09)
--- NOTE | 2018-12-22 11:24 | Post Operative Brief Note ---
Cardiology Brief Post Op Date of Surgery December 22, 2018 Pre & Post Diagnosis Operation Date: 12/22/18 09:00 <No data on this case meets the specified criteria> Procedure Attempted ablation of SVT Baseline rhythm is junctional Normal AV bia function Inducible AVNRT Unable to assess results of ablation due to recurrent AF Reed Repairer Kimani Aguillon MD Pathology Manager none Estimated Blood Loss 10 Findings See Below paroxysmal AF Complications none Disposition Accompanied Patient To Recovery: No Disposition: PCU Overlapping Procedure I was immediately available: during the entire case.
[2018-12-22] MEDS: METOPROLOL SUCC 25MG EXT REL TAB PO SCH (11:48)
[2018-12-22] MEDS: SODIUM CHLORIDE 0.9% 1000ML 1,000 ML IV SCH (16:30)
[2018-12-22] MEDS ORDERED: WARFARIN SOD 5 MG TAB PO ONE (16:46)
--- NOTE | 2018-12-22 17:02 | Cardiology Progress Note ---
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 Pt has sinus node dysfunction and complex atrial arrhythmias including h/o atrial flutter, atrioventricular bia reentrant tacycardia, paroxysmal atrial fibrillation. Past syncopal episode in May. Recommend proceeding with permanent pacemaker for heart rate support. Post device, will likely proceed with sotalol for rhythm control. Do not believe another attempt with ablation would prove to be successful , so favor pacemaker. Stroke prophylaxis: no heparin bridge given R IJ access today. Start couadin load now. Has history of surgical left atrial appendage clip which should offer some protection in the interim. DC amiodarone infusion now, allow to wash out to allow sotalol initiation. If has recurrent tachycardia overnight , will resume amiodarone acutely. (5) Left foot drop: Proceed with MRI to exclude occult stroke given several weeks of symptoms. Will obtain MRI prior to insertion of pacemaker, as would otherwise need to wait 6 weeks post device. Subjective CC: follow up exertional shortness of breath due to tachycardia Subjective: Patient recovered well post EP study. Left procedure room in atrial fibrillation , however , converted back to SR since. He is currently in SR at 61 bpm while on amiodarone infusion. Physical Exam 2 Vital Signs (Past 24 Hours): Last Vital Signs Temp 37.0 C 12/22/18 15:28 Pulse 60 12/22/18 15:28 Resp 18 12/22/18 15:28 BP 132/69 12/22/18 15:31 Pulse Ox 93 12/22/18 15:28 Constitutional: no acute distress Respiratory: normal respiratory effort, lungs clear to auscultation Chest (Breasts): normal inspection/palpation of breasts Neurologic: conversant, follows commands, noted left foot drop over last few weeks
--- NOTE | 2018-12-22 17:29 | Hospitalist Progress Note ---
Date of Service December 22, 2018 Assessment & Plan (1) AVNRT (AV bia re-entry tachycardia): -sinus node dysfunction and complex atrial arrhythmias including h/o atrial flutter, atrioventricular bia reentrant tacycardia, paroxysmal atrial fibrillation; history of surgical left atrial appendage clip -was started on IV amiodarone -Cardiology electrophysiology service attempted ablation on 12/22/18 but unable to assess results of ablation due to recurrent atrial fbrillation -cardiology service Recommend proceeding with permanent pacemaker for heart rate support and then once pacemaker is placed then will plan for sotalol for rhythm control. -cardiology will hold IV amiodarone to allow for washout before proceeding for sotalol after planned pacemaker (if patient has recurrent tachycardia tonight then should resume IV amiodarone) -cardiology will start loading with coumadin today -off metoprolol NPO after midnight excpet oral medications for possible pacemaker placement on once arrythmia conditions have resolved, will re-evaluate with cardiology service whether patient will need to continue with periodic lasix for shortness of breath in the past when have recurrent arrythmia symptoms given that patient has preserved systolic function (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 Abdullahi Rheumatology (7) Polymyalgia rheumatica: -continue prednisone 5mg daily -follows Dr. Abdullahi Rheumatology (8) GERD (gastroesophageal reflux disease): -continue PPI (9) BPH (benign prostatic hyperplasia): -continue flomax (10) DVT prophylaxis: coumadin loading as per cardiology service Subjective Patient returned from attempted ablation. Heart rate controlled and bradycardic but with arrythmias as noted on telemetry monitoring. currently patient denies symptoms. no chest pain, no shortness of breath, no palpitations, no lightheadedness. have food at bedside. and no vomiting Physical Exam 2 Vital Signs (Past 24 Hours): Last Vital Signs Temp 37.0 C 12/22/18 15:28 Pulse 60 12/22/18 15:28 Resp 18 12/22/18 15:28 BP 132/69 12/22/18 15:31 Pulse Ox 93 12/22/18 15:28 Constitutional: WD/WN, vitals as above Eyes: PERRL, conjunctivae normal, anicteric sclerae ENMT: external ear and nose normal, oropharynx normal Neck: trachea midline dressing over right neck Respiratory: normal respiratory effort, lungs clear to auscultation Cardiovascular: Rate/Rhythm: + bradycardic Gastrointestinal (Abdomen): normal bowel sounds, soft, nontender, no hepatosplenomegaly Musculoskeletal: Head/Neck/Chest: normocephalic and head atraumatic Neurologic: PERRL, EOMI, accommodation nl, no face palsy, no dysarthria Psychiatric: A+Ox3, euthymic affect _ (1) BPH (benign prostatic hyperplasia) Lower urinary tract symptom detail: Lower urinary tract symptom presence: unspecified whether lower urinary tract symptoms present Qualified Code(s): N40.0 - Benign prostatic hyperplasia without lower urinary tract symptoms (2) Coronary artery disease Associated angina: without angina Coronary Disease-Associated Artery/Lesion type: bypass graft [place] vs. transplanted heart: [place] heart Qualified Code( s): I25.810 - Atherosclerosis of coronary artery bypass graft(s) without angina pectoris (3) GERD (gastroesophageal reflux disease) Esophagitis presence: esophagitis presence not specified Qualified Code(s): K21.9 - Gastro-esophageal reflux disease without esophagitis (4) HTN (hypertension) Hypertension type: essential hypertension Qualified Code(s): I10 - Essential (primary) hypertension
--- NOTE | 2018-12-22 21:03 | Magnetic Resonance Report ---
MRI OF THE BRAIN WITHOUT IV CONTRAST CLINICAL HISTORY: Left foot drop. Atrial fibrillation. COMPARISON STUDY: No priors. TECHNIQUE: MRI of the brain was performed utilizing various T1 and T2-weighted sequences in the axial , sagittal, and coronal planes. IV contrast was not administered for this examination. FINDINGS: Brain parenchyma: There is age-related involutional change noting mild subcortical and periventricula r microangiopathic disease. There is no hemorrhage or mass effect. There is no restricted diffusion t o suggest acute ischemia. North-white matter differentiation is preserved. No extra-axial fluid collec tion is seen. The cerebellar tonsils are normal in configuration. Ventricles, sulci, and cisterns: Prominent secondary to involutional change. Pituitary and sella: Unremarkable. Intracranial vasculature: Normal flow voids are maintained at the skull base. Orbits: The bony orbits are grossly intact. Orbital contents are normal in appearance, noting bilater al ocular lens implants. Sinuses and mastoids: Clear. Calvarium: Unremarkable. Cervical cord: Partially visualized cervical spinal cord is normal in morphology and signal intensity . IMPRESSION: No acute intracranial abnormality. Electronically signed by: Greg Mccartney M.D. 12/22/2018 9:01 PM
[2018-12-23 06:34] LABS: INR 1.1 (0.9-1.1); Prothrombin Time 10.9 Seconds (9.0-12.0)
[2018-12-23] MEDS ORDERED: BUPIVACAINE 0.5 % 5 MG/1 ML PF 10ML VIAL ONE ×2 (06:58→08:09)
[2018-12-23] MEDS ORDERED: LIDOCAINE HCL 1% 20 ML VIAL ONE ×2 (06:59→08:09)
[2018-12-23] MEDS ORDERED: BACITRACIN INJ 50,000 UNIT VIAL ONE (06:59)
[2018-12-23] MEDS ORDERED: MIDAZOLAM HCL 5 MG/ML 1 ML VIAL ONE (07:47)
[2018-12-23] MEDS ORDERED: CEFAZOLIN 250 MG/ML 1 GM VIAL ONE (07:48)
[2018-12-23] MEDS ORDERED: fentaNYL citrate 100 MCG/2 ML VIAL ONE (07:48)
--- NOTE | 2018-12-23 07:51 | Pre Anesthesia Assessment ---
Date of Service December 23, 2018 Pre Sedation Assessment Vital Signs Temp Pulse Pulse Pulse Resp BP Pulse Ox 12/23/18 07:23 36.7 C 58 L 16 158/79 H 93 12/23/18 03:30 36.7 C 79 18 116/69 97 12/22/18 23:40 53 L 12/22/18 23:23 36.7 C 56 L 18 154/84 H 97 12/22/18 15:31 132/69 12/22/18 15:28 37.0 C 60 18 146/67 H 93 12/22/18 13:53 60 128/61 12/22/18 13:23 63 115/55 L 12/22/18 12:53 58 L 14 113/59 L 95 12/22/18 12:23 36.8 C 67 15 111/59 L 12/22/18 11:53 58 L 16 107/56 L 97 12/22/18 11:08 36.8 C 55 L 14 112/62 96 12/22/18 11:05 61 14 118/63 92 Cardiovascular + regular rate Respiratory + respiratory effort normal Pre-Sedation Airway Assessment Smoking Status: Former smoker Hx Sleep Apnea: No Hx Difficult Intubation: No Short, Thick Neck: No Thyromental Distance: > or= 3.5 Finger Breadths Oral Cavity: + WNL Mallampati Class: III ASA: ASA3 Procedure Planning Contraindications for Sedation: none Current Medications Reviewed: Yes Notes The planned sedation has been discussed with the patient. Informed Consent was obtained. I have identified the patient, determined the appropriateness of sedation and have assessed the patient immediately prior to the procedure. All medicine(s) and interventions are by my order.
--- NOTE | 2018-12-23 08:50 | Procedure Note ---
Procedure Note Date of Service December 23, 2018 Note Procedure performed: Implantation of dual-chamber permanent pacemaker Staff iron worker: Kimani Agiullon MD Indication: The patient is a 78-year-old gentleman with a history of atrial fibrillation and SVT. He presented not in any [facility] with episodes of SVT and underwent EP study and attempted ablation of AVNRT. However, the patient had frequent episodes of atrial fibrillation. He was also noted to have a junctional rhythm at baseline. 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 He is being placed for symptomatic nonreversible sinus node dysfunction. A dual -chamber device was selected as patient is currently in sinus rhythm and wished to maintain AV synchrony. Procedure in detail: The patient was informed of the risks benefits and alternatives to the intended procedure and she wished to proceed. He was taken to the electrophysiology suite in a fasting state. A preoperative antibiotic had been administered. The patient was monitored electrocardiographically throughout today's procedure and conscious sedation was administered per protocol. The left upper pectoral area is prepped and draped in usual sterile fashion. This area was anesthetized using subcutaneous administration of a xylocaine solution. An incision was made at this site and carried down to the prepectoralis fascia using sharp dissection. Electrocautery was also employed for dissection as well as for hemostasis. A device pocket was fashioned tissues above the pectoralis muscle. Subsequent to this maneuver the left axillary vein was accessed using modified Seldinger technique. Sheaths were placed over guidewires at this site and used to facilitate passage of the pacing leads to the respective chambers under fluoroscopic guidance. This included right atrial and right ventricular leads. Adequate sensing and threshold parameters were obtained prior to Active fixation of the leads to the endocardial surface. The proximal portion leads were then sutured the prepectoral fascia using nonabsorbable suture. The device pocket was irrigated with antibiotic solution. The leads were then attached to the device. The device and leads were then placed in the pocket and pocket was closed in 3 layers of absorbable suture. Steri-Strips and sterile dressing were applied. The device was tested noninvasively prior to conclusion the procedure. The patient tolerated procedure well there no immediate complications. Equipment used: New pulse generator: Rectangular [employer]. Model number: [id number] serial number:[id number] Right atrial lead: Rectangular Tank [employer]. Model number: 5076 serial number [id number] Right ventricular lead: Rectangular Tank [employer]. Model number: 5076 serial number [id number] Measured data: Right atrial lead: P waves measured 1.6 mV. Pacing threshold 1.1 V at 0.4 ms with a pacing impedance of 518 ohms Right ventricular lead: R waves measured 6.2 mV. Pacing threshold was 1.4 V at 0.4 ms with a pacing impedance of 980 ohms Impression: Successful implantation of dual-chamber permanent pacemaker
[2018-12-23] MEDS: PANTOprazole 40 MG TAB PO SCH (09:03)
[2018-12-23] MEDS: CALCIUM 600MG + VIT D 400 IU TAB PO SCH ×2 (09:03→20:21)
[2018-12-23] MEDS: predniSONE 5 MG TAB PO SCH (09:04)
[2018-12-23] MEDS: MAGNESIUM OXIDE 400 MG TAB PO SCH (09:04)
[2018-12-23] MEDS: METOPROLOL SUCC 25MG EXT REL TAB PO SCH (09:04)
[2018-12-23] MEDS: GABAPENTIN 300 MG CAP PO SCH ×2 (09:04→20:21)
[2018-12-23] MEDS: ATORVASTATIN 40 MG TAB PO SCH (09:04)
[2018-12-23] MEDS: TAMSULOSIN HCL 0.4 MG CAP PO SCH ×2 (09:04→20:21)
[2018-12-23] MEDS: ASPIRIN 81 MG ECTAB PO SCH (09:04)
--- NOTE | 2018-12-23 11:47 | Cardiology Progress Note ---
Date of Service December 23, 2018 Assessment & Plan (1) AVNRT (AV bia re-entry tachycardia): (2) Atrial fibrillation: (3) Sinus node dysfunction: (4) RBBB (right bundle branch block with left anterior fascicular block): Given ongoing issues with complex atrial arrhythmias as well as sinus node dysfunction and intermittent accelerated junctional rhythm, it was felt that the most prudent step would be implantation of a permanent pacemaker for heart rate support. We will now start sotalol, initial dose 80 mg, this evening, to allow washout of the amiodarone which had been stopped on 12/22/18. Metoprolol succinate has been discontinued and will be replaced by the sotalol as well. Favoring sotalol treatment for rhythm control strategy, rather than amiodarone due to less potential for long-term toxicity. The patient was counseled that he will need to make sure other providers are aware that he is on sotalol and to avoid QT prolonging medications such as fluoroquinolone and macrolide antibiotics. -Patient is to remain on telemetry with daily a.m. EKGs for sotalol initiation. Anticipate 6th dose will be administered Saturday morning. We will proceed with Coumadin initiation without bridge therapy due to potential for bleeding risk from recent IJ venous access and pacemaker pocket. Repeat BMP and CBC tomorrow along with INR. (5) Left foot drop: MRI of the brain performed 12/22/18 was within normal limits without evidence of stroke. (6) Hx of four vessel coronary artery bypass graft: Continue statin therapy. Metoprolol succinate has been discontinued in favor of sotalol. Subjective Chief complaint: Follow-up exertional shortness of breath, episodic tachycardia Subjective: Patient seen in room 205, having had dual-chamber [employer] permanent pacemaker implanted this morning. He is awake and oriented and is in good spirits. His left arm is in a sling. He tolerated the procedure well. Currently telemetry reveals sinus rhythm with atrial pacing at 60 bpm, and [place] QRS complexes. EKG performed this morning, prior to the pacemaker, on revealed sinus bradycardia with right bundle branch block with corrected QT interval of 437 ms. Telemetry overnight had revealed sinus rhythm and accelerated junctional rhythm , with no recurrence of SVT or atrial fibrillation off of amiodarone infusion. Physical Exam 2 Vital Signs (Past 24 Hours): Last Vital Signs Temp 36.5 C 12/23/18 09:00 Pulse 61 12/23/18 11:00 Resp 19 12/23/18 11:00 BP 116/92 12/23/18 11:00 Pulse Ox 93 12/23/18 11:00 Physical Exam: General: no acute distress and stated age Eyes: conjunctiva are pink and non-injected, sclera clear Neck: normal jugular venous pulse, no hepatojugular reflux Chest: normal shape and normal respiratory effort Left infraclavicular pacemaker site bandaged, not removed. Lungs: clear to auscultation and percussion Cardiac Exam: - regular heart sounds, no murmurs, rubs, or gallops, no jugular venous distention Abdomen: abdomen soft, non-tender, no abnormal masses and no hepatosplenomegaly Extremities: no edema and no cyanosis Neuro:awake, coversant, follows commands, no focal motor deficits Psych: appropriate affect and insight. Results & Data Laboratory Results Coagulation 12/23/18 Range/Units 06:00 PT 10.9 (9.0-12.0) Seconds Intake and Output 12/22/18 12/23/18 12/23/18 22:59 06:59 14:59 Intake Total 169.275 / 169.275 600 / 600 Balance 169.275 / 169.275 600 / 600 Intake: IV 169.275 / 169.275 NEXTERONE / D5W 360 mg In 200 169.275 / 169.275 ml @ 1 MG/MIN 33.333 mls/hr IV .Q6H TEJAS Rx#:[id number] Nss 1000ML 1,000 ml @ 70 mls/hr 0 / 0 IV .[id number] TEJAS Rx#:[id number] Oral 600 / 600 Other: Other Intake Source NPO # Unmeasured Voids 1 Weight 95.2 kg
[2018-12-23] MEDS: ACETAMINOPHEN 325 MG TAB PO PRN ×3 (12:49→23:48)
[2018-12-23] MEDS ORDERED: OXYCODONE HCL IR 5 MG TAB (IMMEDIATE RELEASE) PO PRN (16:39)
--- NOTE | 2018-12-23 17:00 | Cardiology Progress Note ---
Date of Service December 23, 2018 Assessment & Plan (1) AVNRT (AV bia re-entry tachycardia): He had inducible AVNRT at EP study yesterday. Modification of the slow inputs to the AV node was attempted but efficacy was not confirm due to recurrent atrial fibrillation. (2) History of atrial flutter: No clinical recurrence. (3) Sinus node dysfunction: His presenting rhythm at the time of EPS yesterday was junctional. He has had periods of junctional rhythm alternating with a sinus bradycardia on telemetry. (4) Atrial fibrillation: He has a clinical history of atrial fibrillation and had frequent episodes of atrial fibrillation yesterday during EPS. Today he underwent treatment for what is essentially tachy-narciso syndrome with implantation of dual -chamber permanent pacemaker. Believe this will provide adequate rate support and atrial therapies for treatment of atrial fibrillation. Patient will be initiated on sotalol this evening. QTC on current EKG is normal. Warfarin anticoagulation was also initiated. Subjective I saw the patient at the bedside this evening. He has some discomfort at the device implant site. This appears to be mild in nature and improved with Tylenol. Otherwise feeling well. Physical Exam 2 Vital Signs (Past 24 Hours): Last Vital Signs Temp 36.6 C 12/23/18 15:02 Pulse 60 12/23/18 15:02 Resp 20 12/23/18 15:02 BP 137/68 12/23/18 15:02 Pulse Ox 94 12/23/18 15:02 Physical Exam: The implant site in the left upper pectoral area is without hematoma or swelling. Results & Data Laboratory Results Abnormal Lab Results 12/23/18 06:00 PT 10.9 INR 1.1
[2018-12-23] MEDS: WARFARIN SOD 5 MG TAB PO SCH (17:06)
[2018-12-23] MEDS: CEFAZOLIN 2000MG 2,000 MG/15 ML SYR IV SCH ×2 (17:08→23:48)
--- NOTE | 2018-12-23 19:01 | Hospitalist Progress Note ---
Date of Service December 23, 2018 Assessment & Plan (1) AVNRT (AV bia re-entry tachycardia): -sinus node dysfunction and complex atrial arrhythmias including h/o atrial flutter, atrioventricular bia reentrant tacycardia, paroxysmal atrial fibrillation; history of surgical left atrial appendage clip -was started on IV amiodarone -Cardiology electrophysiology service attempted ablation on 12/22/18 but unable to assess results of ablation due to recurrent atrial fbrillation -pacemaker placed on 12/23/18 and rhythm control strategy with sotalol (cardiology service has started sotalol, initial dose 80 mg, this evening, to allow washout of the amiodarone which had been stopped on 12/22/18. Metoprolol succinate has been discontinued and replaced by the sotalol as well) -avoid QT prolonging medications such as fluoroquinolone and macrolide antibiotics -Patient is to remain on telemetry with daily a.m. EKGs for sotalol initiation. Anticipate 6th dose will be administered Saturday12/26/18 -Coumadin daily for INR 2 to3 but no bridging with heparin to avoid bleeding risks from recent IJ venous access and pacemaker pocket. 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 Abdullahi Rheumatology (7) Polymyalgia rheumatica: -continue prednisone 5mg daily -follows Dr. Abdullahi Rheumatology (8) GERD (gastroesophageal reflux disease): -continue PPI (9) BPH (benign prostatic hyperplasia): -continue flomax (10) DVT prophylaxis: coumadin Subjective Patient has pacemaker placed patient has mild pain of pacemaker site no shortness of breath, no palpitations, no lightheadedness. have food at bedside. and no vomiting Physical Exam 2 Vital Signs (Past 24 Hours): Last Vital Signs Temp 36.6 C 12/23/18 15:02 Pulse 60 12/23/18 15:02 Resp 20 12/23/18 15:02 BP 137/68 12/23/18 15:02 Pulse Ox 94 12/23/18 15:02 Constitutional: WD/WN, vitals as above Eyes: PERRL, conjunctivae normal, anicteric sclerae ENMT: external ear and nose normal, oropharynx normal Neck: trachea midline Respiratory: normal respiratory effort, lungs clear to auscultation Cardiovascular: Rate/Rhythm: + bradycardic (paced) Gastrointestinal (Abdomen): normal bowel sounds, soft, nontender, no hepatosplenomegaly Musculoskeletal: Head/Neck/Chest: normocephalic and head atraumatic Neurologic: PERRL, EOMI, accommodation nl, no face palsy, no dysarthria Psychiatric: A+Ox3, euthymic affect _ (1) Coronary artery disease Coronary Disease-Associated Artery/Lesion type: bypass graft [place] vs. transplanted heart: [place] heart Associated angina: without angina Qualified Code(s): I25.810 - Atherosclerosis of coronary artery bypass graft(s) without angina pectoris (2) HTN (hypertension) Hypertension type: essential hypertension Qualified Code(s): I10 - Essential (primary) hypertension (3) GERD (gastroesophageal reflux disease) Esophagitis presence: esophagitis presence not specified Qualified Code(s): K21.9 - Gastro-esophageal reflux disease without esophagitis (4) BPH (benign prostatic hyperplasia) Lower urinary tract symptom presence: unspecified whether lower urinary tract symptoms present Lower urinary tract symptom detail: Qualified Code(s): N40.0 - Benign prostatic hyperplasia without lower urinary tract symptoms
[2018-12-23] MEDS: SOTALOL HCL 80 MG TAB PO SCH (20:21)
[2018-12-24] MEDS: ACETAMINOPHEN 325 MG TAB PO PRN ×3 (04:03→20:41)
[2018-12-24 06:08] LABS: Basophils # (auto) 0.01 K/uL (0-0.2); Basophils % (auto) 0.2 %; Eosinophils # (auto) 0.23 K/uL (0-0.5); Eosinophils % (auto) 4.8 %; Hematocrit (blood only) 37.5 % (42-52); Hemoglobin 12.4 g/dL (14.0-18.0); Immature Granulocytes # (auto) 0.01 K/uL (0.00-0.02); Immature Granulocytes % (auto) 0.2 %; Lymphocytes # (auto) 0.86 K/uL (1.2-3.4); Mean Corpuscular Hgb Conc 33.1 g/dL (32-36); Mean Corpuscular Volume 89.7 fL (80-100); Mean Platelet Volume 9.2 fL (7.4-10.4); Monocytes # (auto) 0.34 K/uL (0.11-0.59); Monocytes % (auto) 7.1 %; Neutrophils # (auto) 3.32 K/uL (1.4-6.5); Neutrophils % (auto) 69.7 %; Platelet Count 276 K/uL (130-400); RDW Coefficient of Variation 13.3 % (11.5-14.5); RDW Standard Deviation 43.7 fL (36.4-46.3); Red Blood Count 4.18 M/uL (4.7-6.1); White Blood Count 4.77 K/uL (4.8-10.8)
[2018-12-24 06:43] LABS: BUN Creatinine Ratio 14.4 (10-20); Calcium 8.8 mg/dl (8.5-10.1); Creatinine Clr Calc Pharmacy 75.4 ml/min; Est GFR (African American) 85.8; Est GFR (Non-African American) 74.1; Potassium 3.8 mmol/L (3.5-5.1)
[2018-12-24 06:52] LABS: INR 1.1 (0.9-1.1); Prothrombin Time 11.2 Seconds (9.0-12.0)
--- NOTE | 2018-12-24 07:31 | Anesthesiology Progress Note ---
Date of Service December 24, 2018 Anesthesia Post Procedure Vital Signs Vital Signs: Temp Pulse Pulse Pulse Pulse Resp BP 12/24/18 03:13 36.7 C 60 18 12/23/18 23:55 36.7 C 60 16 12/23/18 19:16 36.6 C 61 20 12/23/18 15:02 36.6 C 60 20 12/23/18 12:30 12/23/18 12:00 12/23/18 11:58 36.5 C 60 18 12/23/18 11:30 129/70 12/23/18 11:00 61 19 12/23/18 10:45 70 18 12/23/18 10:15 65 17 12/23/18 09:45 64 17 12/23/18 09:30 61 17 12/23/18 09:15 62 62 18 12/23/18 09:00 36.5 C 60 18 12/23/18 08:00 62 BP Pulse Ox 12/24/18 03:13 138/78 94 12/23/18 23:55 148/85 H 95 12/23/18 19:16 150/82 H 96 12/23/18 15:02 137/68 94 12/23/18 12:30 132/67 12/23/18 12:00 130/68 12/23/18 11:58 131/61 95 12/23/18 11:30 12/23/18 11:00 116/92 93 12/23/18 10:45 130/75 93 12/23/18 10:15 146/72 H 93 12/23/18 09:45 141/72 H 94 12/23/18 09:30 148/66 H 92 12/23/18 09:15 131/75 94 12/23/18 09:00 146/73 H 92 12/23/18 08:00 Pain Intensity Left Chest: Pain Intensity: 4 Notes Mental Status: alert / awake / arousable and participated in evaluation Patient Amnestic to Procedure: Yes Nausea / Vomiting: adequately controlled Pain: adequately controlled Airway Patency, RR, SpO2: stable & adequate BP & HR: stable & adequate Hydration State: stable & adequate Anesthetic Complications: no major complications apparent and Pt Satisfied with anesthetic care
[2018-12-24] MEDS: TAMSULOSIN HCL 0.4 MG CAP PO SCH ×2 (07:50→20:41)
[2018-12-24] MEDS: MAGNESIUM OXIDE 400 MG TAB PO SCH (07:50)
[2018-12-24] MEDS: PANTOprazole 40 MG TAB PO SCH (07:50)
[2018-12-24] MEDS: ATORVASTATIN 40 MG TAB PO SCH (07:50)
[2018-12-24] MEDS: GABAPENTIN 300 MG CAP PO SCH ×2 (07:50→20:41)
[2018-12-24] MEDS: FUROSEMIDE 20 MG TAB PO SCH (07:50)
[2018-12-24] MEDS: CALCIUM 600MG + VIT D 400 IU TAB PO SCH ×2 (07:50→20:41)
[2018-12-24] MEDS: ASPIRIN 81 MG ECTAB PO SCH (07:51)
[2018-12-24] MEDS: predniSONE 5 MG TAB PO SCH (07:51)
[2018-12-24] MEDS: SOTALOL HCL 80 MG TAB PO SCH ×2 (07:51→20:41)
[2018-12-24] MEDS: CEFAZOLIN 2000MG 2,000 MG/15 ML SYR IV SCH (07:59)
--- NOTE | 2018-12-24 08:33 | XRay Report ---
XR chest 2V routine CLINICAL HISTORY: EXACT TIME ORDERED Evaluate for pneumothorax and l COMPARISON STUDY: 12/21/2017 FINDINGS: Placement of a permanent bipolar cardiac pacemaker. Leads in good position. Findings of a p rior median sternotomy. Infiltrative changes left base slightly improved. Lungs otherwise appear daija r. IMPRESSION: Permanent bipolar cardiac pacemaker placement with leads in good position. No evidence p neumothorax. Left basilar infiltrate slightly improved. The above report was generated using voice recognition software. It may contain grammatical, syntax or spelling errors. Electronically signed by: Lawrence Rubio M.D. 12/24/2018 8:32 AM
--- NOTE | 2018-12-24 10:41 | Cardiology Progress Note ---
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 Modification of the slow inputs to the AV node was attempted but efficacy was not confirm due to recurrent atrial fibrillation. No recurrence since admission. Currently starting on sotalol (2) History of atrial flutter: No clinical recurrence. (3) Sinus node dysfunction: He continues to have junctional rhythms. Now on sotalol. Will probably be mostly paced. I activated rate response today as I think he will need it with sotaolol. (4) Atrial fibrillation: Nop recurrence. Started on sotalol and warfarin. Subjective Feeling better this morning. Some nausea. Pain at the implant site improved. Anxious to be more active Physical Exam Vital Signs (Past 24 Hours): Last Vital Signs Temp 36.6 C 12/24/18 07:57 Pulse 60 12/24/18 07:57 Resp 20 12/24/18 07:57 BP 138/75 12/24/18 07:57 Pulse Ox 93 12/24/18 07:57 Physical Exam: Wound looks good. No hematoma. Minimal ecchymosis. No drainage or bleeding. No erythema. Results & Data Diagnostic Findings Chest x-ray demonstrates good lead position without PTX Device interrogation reveals good lead function. Underlying rhythm is junctional. ECG Additional Comments: Mostly paced overnight EKG this morning with acceptable QTc
--- NOTE | 2018-12-24 10:50 | Hospitalist Progress Note ---
Date of Service December 24, 2018 Assessment & Plan (1) AVNRT (AV bia re-entry tachycardia): sinus node dysfunction and complex atrial arrhythmias including h/o atrial flutter, atrioventricular bia reentrant tacycardia, paroxysmal atrial fibrillation; history of surgical left atrial appendage clip Received Adenosine in the ER and was starting on IV amiodarone that was discontinued Cardiology electrophysiology service attempted ablation on 12/22/18 but unable to assess results of ablation due to recurrent atrial fbrillation S/P pacemaker insertion on 12/23/18 Currently paced on telemonitor Continue Sotalol 80mg BID Continue monitor in tele and avoid QT prolonging medications such as fluoroquinolone and macrolide antibiotics Will get daily EKGs since sotalol was starting to monitor QTC. Anticipate 6th dose will be administered Saturday12/26/18 Clinically stable (2) Atrial fibrillation: (3) Tachy-narciso syndrome: Had frequent episodes of atrial fibrillation during EPS. S/P Pacemaker placement Metoloprol was discontinued andnow on Sotalol Starting on coumadin Continue Coumadin daily with no bridging with heparin to avoid bleeding risks from recent IJ venous access and pacemaker pocket. 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 Abdullahi Rheumatology (9) Polymyalgia rheumatica: Continue prednisone 5mg daily Follows Dr. Abdullahi Rheumatology (10) GERD (gastroesophageal reflux disease): Continue PPI (11) BPH (benign prostatic hyperplasia): Continue flomax (12) DVT prophylaxis: on coumadin with INR 1.1 CODE STATUS FULL CODE Disposition Continue monitor in tele Subjective Pt was seen and examined Sitting in chair with no distress watching in his tablet He said that he has mild tender at the pacemaker site Denies any chest pain, palpitation, dizziness and SOB Physical Exam Vital Signs (Past 24 Hours): Last Vital Signs Temp 36.6 C 12/24/18 07:57 Pulse 60 12/24/18 07:57 Resp 20 12/24/18 07:57 BP 138/75 12/24/18 07:57 Pulse Ox 93 12/24/18 07:57 Physical Exam: General- No acute distress Head- atraumatic Eyes- PERRL, EOMI, ENT- oropharynx clear Neck- supple, no JVD Lungs- clear to auscultation Heart- regular rhythm; no murmur Abdomen- normal bowel sounds, soft, nontender Extremities- no calf tenderness Neuro- alert, oriented x 3; PERRL, EOMI; no facial palsy; no dysarthria Skin- warm & dry (1) BPH (benign prostatic hyperplasia) Lower urinary tract symptom presence: unspecified whether lower urinary tract symptoms present Qualified Code(s): N40.0 - Benign prostatic hyperplasia without lower urinary tract symptoms (2) Coronary artery disease Associated angina: without angina Coronary Disease-Associated Artery/Lesion type: bypass graft [place] vs. transplanted heart: [place] heart Qualified Code(s): I25.810 - Atherosclerosis of coronary artery bypass graft(s) without angina pectoris (3) GERD (gastroesophageal reflux disease) Esophagitis presence: esophagitis presence not specified Qualified Code(s): K21.9 - Gastro-esophageal reflux disease without esophagitis (4) HTN (hypertension) Hypertension type: essential hypertension Qualified Code(s): I10 - Essential (primary) hypertension
--- NOTE | 2018-12-24 13:20 | Cardiology Progress Note ---
Date of Service December 24, 2018 Assessment & Plan (1) AVNRT (AV bia re-entry tachycardia): (2) Sinus node dysfunction: (3) Atrial fibrillation: Unsuccessful AVNRT ablation, with noted sinus node dysfunction and therefore patient underwent dual-chamber [employer] permanent pacemaker in 12/23/18, and is now undergoing sotalol initiation for suppression of the complex atrial arrhythmias. Corrected QT is stable at 466 ms, will repeat EKG tomorrow and daily, his sixth dose will tentatively be due on Saturday morning. (4) RBBB (right bundle branch block with left anterior fascicular block): (5) Hx of four vessel coronary artery bypass graft: Continue aspirin. Coumadin added due to PAF. Continue daily INR levels. 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 Subjective Chief complaint: Follow-up exertional shortness of breath, complex atrial arrhythmias, sinus node dysfunction Subjective: Patient feeling well overall. No recurrence of his tachycardia. He underwent pacemaker yesterday which he tolerated well. Post procedure chest x- ray today reveals no evidence of pneumothorax, and his device was interrogated by Dr. Aguillon with normal function noted. Physical Exam Vital Signs (Past 24 Hours): Last Vital Signs Temp 36.5 C 12/24/18 11:02 Pulse 60 12/24/18 11:02 Resp 18 12/24/18 11:02 BP 106/61 12/24/18 11:02 Pulse Ox 93 12/24/18 11:02 Constitutional: well developed; not ill appearing Respiratory: normal respiratory effort, lungs clear to auscultation Cardiovascular: RRR, no murmur, no edema Extremities: no edema Chest (Breasts): Additional Comments: Left infraclavicular pacemaker site clean dry and intact Neurologic: moves all extremities and awake; no focal motor deficits Results & Data Laboratory Results Coagulation INR 1.1 12/24/18 Range/Units 05:42 PT 11.2 (9.0-12.0) Seconds CBC 12/24/18 Range/Units 05:42 WBC 4.77 L (4.8-10.8) K/uL RBC 4.18 L (4.7-6.1) M/uL Hgb 12.4 L (14.0-18.0) g/dL Hct 37.5 L (42-52) % Plt Count 276 (130-400) K/uL Neut # (Auto) 3.32 (1.4-6.5) K/uL Lymph # (Auto) 0.86 L (1.2-3.4) K/uL [place] # (Auto) 0.34 (0.11-0.59) K/uL Eos # (Auto) 0.23 (0-0.5) K/uL Baso # (Auto) 0.01 (0-0.2) K/uL Comprehensive Metabolic Panel 12/24/18 Range/Units 05:42 Sodium 139 (136-145) mmol/L Potassium 3.8 (3.5-5.1) mmol/L Chloride 105 (98-107) mmol/L Carbon Dioxide 27 (21-32) mmol/L BUN 14 (7-18) mg/dl Creatinine 0.98 (0.6-1.4) mg/dl Glucose 111 H (70-99) mg/dl Calcium 8.8 (8.5-10.1) mg/dl Intake and Output 12/23/18 12/24/18 12/24/18 22:59 06:59 14:59 Intake Total 400 / 880 200 / 880 Output Total 500 / 900 200 / 900 Balance -100 / -20 0 / -20 Intake: Oral 400 / 880 200 / 880 Output: Urine 500 / 900 200 / 900 Other: Weight 95 kg Diagnostic Findings EKG this a.m. reveals sinus rhythm with atrial pacing at 60 bpm, [place] QRS complexes, right bundle branch block morphology, stable corrected QT interval of 466 ms. Medications Administered Current Inpatient Medications Acetaminophen (Tylenol) 650 mg PO Q4H PRN PRN Reason: Pain or Fever Stop: 01/20/19 14:23 Last Admin: 12/24/18 04:03 Dose: 650 mg Documented by: Al Hydrox/Mg Hydrox/Simethicone (Maalox) 15 ml PO Q4H PRN PRN Reason: Dyspepsia Stop: 01/20/19 14:23 Last Admin: 12/23/18 01:41 Dose: 15 ml Documented by: Aspirin (Ecotrin Ectab) 81 mg PO DAILY [facility] Stop: 01/21/19 08:59 Last Admin: 12/24/18 07:51 Dose: 81 mg Documented by: Atorvastatin Calcium (Lipitor) 40 mg PO DAILY [facility] Stop: 01/21/19 08:59 Last Admin: 12/24/18 07:50 Dose: 40 mg Documented by: Furosemide (Lasix) 20 mg PO MoWeFrSa@0900 [facility] Stop: 01/21/19 08:59 Last Admin: 12/24/18 07:50 Dose: 20 mg Documented by: Gabapentin (Neurontin) 300 mg PO BID [facility] Stop: 01/20/19 20:59 Last Admin: 12/24/18 07:50 Dose: 300 mg Documented by: Cefazolin Sodium (Ancef 2000mg) 2,000 mg in 15 mls @ 2.5 mls/min IV Q8H [facility]; Protocol Stop: 12/24/18 15:59 Last Admin: 12/24/18 07:59 Dose: 2.5 mls/min Documented by: Magnesium Hydroxide (Milk Of Magnesia) 30 ml PO Q12H PRN PRN Reason: Constipation Stop: 01/20/19 14:23 Last Admin: 12/24/18 06:14 Dose: 30 ml Documented by: Magnesium Oxide (Mag-Ox) 400 mg PO DAILY [facility] Stop: 01/21/19 08:59 Last Admin: 12/24/18 07:50 Dose: 400 mg Documented by: Multivitamins/Minerals (Caltrate Plus) 1 tab PO BID [facility] Stop: 01/21/19 08:59 Last Admin: 12/24/18 07:50 Dose: 1 tab Documented by: Nitroglycerin (Nitrostat) 0.4 mg SL UD PRN PRN Reason: Chest Pain Stop: 01/20/19 14:23 Oxycodone HCl (Roxicodone Immediate Rel) 5 mg PO Q4 PRN PRN Reason: Pain Stop: 01/06/19 16:38 Pantoprazole Sodium (Protonix) 40 mg PO QAM [facility] Stop: 01/22/19 06:59 Last Admin: 12/24/18 07:50 Dose: 40 mg Documented by: Polyethylene Glycol (Miralax Powder Packet) 17 gm PO DAILY PRN PRN Reason: Constipation Stop: 01/20/19 14:23 Prednisone (Prednisone) 5 mg PO DAILY [facility] Stop: 01/21/19 08:59 Last Admin: 12/24/18 07:51 Dose: 5 mg Documented by: Sotalol HCl (Betapace) 80 mg PO BID [facility] Stop: 01/22/19 20:59 Last Admin: 12/24/18 07:51 Dose: 80 mg Documented by: Tamsulosin HCl (Flomax) 0.4 mg PO BID [facility] Stop: 01/20/19 20:59 Last Admin: 12/24/18 07:50 Dose: 0.4 mg Documented by: Warfarin Sodium (Coumadin) 5 mg PO DAILY@1600 [facility] Stop: 01/22/19 15:59 Last Admin: 12/23/18 17:06 Dose: 5 mg Documented by:
[2018-12-24] MEDS: ENOXAPARIN INJ 40 MG/0.4 ML SYR SQ SCH (15:34)
[2018-12-24] MEDS: WARFARIN SOD 5 MG TAB PO SCH (15:34)
[2018-12-25] MEDS: ACETAMINOPHEN 325 MG TAB PO PRN (01:08)
[2018-12-25 05:48] LABS: Hematocrit (blood only) 37.5 % (42-52); Hemoglobin 12.6 g/dL (14.0-18.0); Mean Corpuscular Hgb Conc 33.6 g/dL (32-36); Mean Corpuscular Volume 89.1 fL (80-100); Mean Platelet Volume 9.3 fL (7.4-10.4); Platelet Count 291 K/uL (130-400); RDW Coefficient of Variation 13.3 % (11.5-14.5); RDW Standard Deviation 43.3 fL (36.4-46.3); Red Blood Count 4.21 M/uL (4.7-6.1); White Blood Count 4.28 K/uL (4.8-10.8)
[2018-12-25 06:00] LABS: INR 1.2 (0.9-1.1); Prothrombin Time 12.3 Seconds (9.0-12.0)
[2018-12-25] MEDS: ENOXAPARIN INJ 40 MG/0.4 ML SYR SQ SCH (07:28)
[2018-12-25] MEDS: SOTALOL HCL 80 MG TAB PO SCH ×2 (07:29→20:39)
[2018-12-25] MEDS: ATORVASTATIN 40 MG TAB PO SCH (07:29)
[2018-12-25] MEDS: predniSONE 5 MG TAB PO SCH (07:29)
[2018-12-25] MEDS: CALCIUM 600MG + VIT D 400 IU TAB PO SCH ×2 (07:29→20:40)
[2018-12-25] MEDS: ASPIRIN 81 MG ECTAB PO SCH (07:30)
[2018-12-25] MEDS: MAGNESIUM OXIDE 400 MG TAB PO SCH (07:31)
[2018-12-25] MEDS: GABAPENTIN 300 MG CAP PO SCH ×2 (07:31→20:41)
[2018-12-25] MEDS: PANTOprazole 40 MG TAB PO SCH (07:31)
[2018-12-25] MEDS: TAMSULOSIN HCL 0.4 MG CAP PO SCH ×2 (07:31→20:41)
[2018-12-25] MEDS ORDERED: AMIODARONE HCL INJ 50 MG/ML 3 ML VIAL IV ONE (08:19)
--- NOTE | 2018-12-25 12:52 | Cardiology Progress Note ---
Date of Service December 25, 2018 Assessment & Plan (1) AVNRT (AV bia re-entry tachycardia): (2) History of atrial flutter: (3) Sinus node dysfunction: (4) Atrial fibrillation: (5) RBBB (right bundle branch block with left anterior fascicular block): s/p permanent pacemaker. Recovering well. Continue sotalol load. EKG this am reveals SR with atrial pacing at 61 bpm,QTC stable at 477 ms. Continue to monitor on telemetry. Ambulate in [place] as tolerated. Plan for 6th dose am of 12/26 and if EKG is stable will discharge then. I have requested device clinic follow up visit for next week with [employer] system. Continue coumadin, INR 1.2, increase dose to 7.5 mg. Lovenox DVT proph in meantime while INR less than 2. No full anticoag dose bridge due to new pocket. (6) HLA-B27 spondyloarthropathy: Continue prednisone, 5 mg daily (7) Hx of four vessel coronary artery bypass graft: Continue current medications. Subjective CC: follow up shortness of breath due to tachycardia Subjective: Feeling well. Some indigestion this am, and feels he tolerates sotalol better when he has food. Telemetry reveals SR, atrial pacing. Physical Exam Vital Signs (Past 24 Hours): Last Vital Signs Temp 36.5 C 12/25/18 11:38 Pulse 62 12/25/18 11:38 Resp 16 12/25/18 11:38 BP 138/83 12/25/18 11:38 Pulse Ox 94 12/25/18 11:38 Constitutional: well developed Respiratory: normal respiratory effort, lungs clear to auscultation Cardiovascular: RRR, no murmur, no edema Extremities: no edema Skin: no rashes, warm and dry Neurologic: no focal deficits Results & Data Laboratory Results Coagulation INR: 1.2 12/25/18 Range/Units 05:23 PT 12.3 H (9.0-12.0) Seconds CBC 12/25/18 Range/Units 05:23 WBC 4.28 L (4.8-10.8) K/uL RBC 4.21 L (4.7-6.1) M/uL Hgb 12.6 L (14.0-18.0) g/dL Hct 37.5 L (42-52) % Plt Count 291 (130-400) K/uL Intake and Output 12/24/18 12/25/18 12/25/18 22:59 06:59 14:59 Output Total 800 / 1150 350 / 1150 Balance -800 / -650 -350 / -650 Output: Urine 800 / 1150 350 / 1150 Other: Weight 103.5 kg Medications Administered Current Inpatient Medications Acetaminophen (Tylenol) 650 mg PO Q4H PRN PRN Reason: Pain or Fever Stop: 01/20/19 14:23 Last Admin: 12/25/18 01:08 Dose: 650 mg Documented by: Al Hydrox/Mg Hydrox/Simethicone (Maalox) 15 ml PO Q4H PRN PRN Reason: Dyspepsia Stop: 01/20/19 14:23 Last Admin: 12/23/18 01:41 Dose: 15 ml Documented by: Aspirin (Ecotrin Ectab) 81 mg PO DAILY [facility] Stop: 01/21/19 08:59 Last Admin: 12/25/18 07:30 Dose: 81 mg Documented by: Atorvastatin Calcium (Lipitor) 40 mg PO DAILY [facility] Stop: 01/21/19 08:59 Last Admin: 12/25/18 07:29 Dose: 40 mg Documented by: Enoxaparin Sodium (Lovenox) 40 mg SQ QAM [facility] Stop: 01/23/19 13:59 Last Admin: 12/25/18 07:28 Dose: 40 mg Documented by: Furosemide (Lasix) 20 mg PO MoWeFrSa@0900 [facility] Stop: 01/21/19 08:59 Last Admin: 12/24/18 07:50 Dose: 20 mg Documented by: Gabapentin (Neurontin) 300 mg PO BID [facility] Stop: 01/20/19 20:59 Last Admin: 12/25/18 07:31 Dose: 300 mg Documented by: Magnesium Hydroxide (Milk Of Magnesia) 30 ml PO Q12H PRN PRN Reason: Constipation Stop: 01/20/19 14:23 Last Admin: 12/24/18 06:14 Dose: 30 ml Documented by: Magnesium Oxide (Mag-Ox) 400 mg PO DAILY [facility] Stop: 01/21/19 08:59 Last Admin: 12/25/18 07:31 Dose: 400 mg Documented by: Multivitamins/Minerals (Caltrate Plus) 1 tab PO BID [facility] Stop: 01/21/19 08:59 Last Admin: 12/25/18 07:29 Dose: 1 tab Documented by: Nitroglycerin (Nitrostat) 0.4 mg SL UD PRN PRN Reason: Chest Pain Stop: 01/20/19 14:23 Oxycodone HCl (Roxicodone Immediate Rel) 5 mg PO Q4 PRN PRN Reason: Pain Stop: 01/06/19 16:38 Pantoprazole Sodium (Protonix) 40 mg PO QAM [facility] Stop: 01/22/19 06:59 Last Admin: 12/25/18 07:31 Dose: 40 mg Documented by: Polyethylene Glycol (Miralax Powder Packet) 17 gm PO DAILY PRN PRN Reason: Constipation Stop: 01/20/19 14:23 Prednisone (Prednisone) 5 mg PO DAILY [facility] Stop: 01/21/19 08:59 Last Admin: 12/25/18 07:29 Dose: 5 mg Documented by: Sotalol HCl (Betapace) 80 mg PO BID [facility] Stop: 01/22/19 20:59 Last Admin: 12/25/18 07:29 Dose: 80 mg Documented by: Tamsulosin HCl (Flomax) 0.4 mg PO BID [facility] Stop: 01/20/19 20:59 Last Admin: 12/25/18 07:31 Dose: 0.4 mg Documented by: Warfarin Sodium (Coumadin) 7.5 mg PO DAILY@1600 [facility] Stop: 01/24/19 15:59
[2018-12-25] MEDS ORDERED: WARFARIN SOD 7.5 MG TAB PO SCH (16:00)
--- NOTE | 2018-12-25 16:34 | Hospitalist Progress Note ---
Date of Service December 25, 2018 Assessment & Plan (1) AVNRT (AV bia re-entry tachycardia): sinus node dysfunction and complex atrial arrhythmias including h/o atrial flutter, atrioventricular bia reentrant tacycardia, paroxysmal atrial fibrillation; history of surgical left atrial appendage clip Received Adenosine in the ER and was starting on IV amiodarone that was discontinued Cardiology electrophysiology service attempted ablation on 12/22/18 but unable to assess results of ablation due to recurrent atrial fbrillation S/P pacemaker insertion on 12/23/18 Currently paced on telemonitor Continue Sotalol 80mg BID Continue monitor in tele and avoid QT prolonging medications such as fluoroquinolone and macrolide antibiotics Will get daily EKGs since sotalol was starting to monitor QTC. Anticipate 6th dose will be administered Saturday12/26/18 Clinically stable (2) Atrial fibrillation: (3) Tachy-narciso syndrome: Had frequent episodes of atrial fibrillation during EPS. S/P Pacemaker placement Metoloprol was discontinued andnow on Sotalol Continue coumadin with INR 1.2 today Continue Coumadin daily with no bridging with heparin to avoid bleeding risks from recent IJ venous access and pacemaker pocket. 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 Abdullahi Rheumatology (9) Polymyalgia rheumatica: Continue prednisone 5mg daily Follows Dr. Abdullahi Rheumatology (10) GERD (gastroesophageal reflux disease): Continue PPI (11) BPH (benign prostatic hyperplasia): Continue flomax (12) DVT prophylaxis: on coumadin with INR 1.2 On Lovenox subq CODE STATUS FULL CODE Disposition Continue monitor in tele Will discharge home tomorrow Subjective Pt was seen and examined Sitting in chair with no distress Pt has been walking in the hallway He said that he feels fine He would like to be discharged tomorrow after lunch Denies any chest pain, palpitation, dizziness and SOB Physical Exam Vital Signs (Past 24 Hours): Last Vital Signs Temp 36.7 C 12/25/18 16:11 Pulse 65 12/25/18 16:11 Resp 16 12/25/18 16:11 BP 148/81 H 12/25/18 16:11 Pulse Ox 95 12/25/18 16:11 Physical Exam: General- No acute distress Head- atraumatic Eyes- PERRL, EOMI, ENT- oropharynx clear Neck- supple, no JVD Lungs- clear to auscultation Heart- regular rhythm; no murmur Abdomen- normal bowel sounds, soft, nontender Extremities- no calf tenderness Neuro- alert, oriented x 3; PERRL, EOMI; no facial palsy; no dysarthria Skin- warm & dry (1) BPH (benign prostatic hyperplasia) Lower urinary tract symptom presence: unspecified whether lower urinary tract symptoms present Qualified Code(s): N40.0 - Benign prostatic hyperplasia without lower urinary tract symptoms (2) Coronary artery disease Associated angina: without angina Coronary Disease-Associated Artery/Lesion type: bypass graft [place] vs. transplanted heart: [place] heart Qualified Code(s): I25.810 - Atherosclerosis of coronary artery bypass graft(s) without angina pectoris (3) GERD (gastroesophageal reflux disease) Esophagitis presence: esophagitis presence not specified Qualified Code(s): K21.9 - Gastro-esophageal reflux disease without esophagitis (4) HTN (hypertension) Hypertension type: essential hypertension Qualified Code(s): I10 - Essential (primary) hypertension
[2018-12-26 06:26] LABS: Hematocrit (blood only) 35.8 % (42-52); Mean Corpuscular Hgb Conc 33.5 g/dL (32-36); Mean Corpuscular Volume 89.1 fL (80-100); Platelet Count 279 K/uL (130-400); RDW Coefficient of Variation 13.4 % (11.5-14.5); RDW Standard Deviation 43.8 fL (36.4-46.3); Red Blood Count 4.02 M/uL (4.7-6.1); White Blood Count 5.34 K/uL (4.8-10.8)
[2018-12-26 06:44] LABS: INR 1.3 (0.9-1.1); Prothrombin Time 13.5 Seconds (9.0-12.0)
[2018-12-26] MEDS: ATORVASTATIN 40 MG TAB PO SCH (08:50)
[2018-12-26] MEDS: ASPIRIN 81 MG ECTAB PO SCH (08:50)
[2018-12-26] MEDS: GABAPENTIN 300 MG CAP PO SCH (08:50)
[2018-12-26] MEDS: TAMSULOSIN HCL 0.4 MG CAP PO SCH (08:50)
[2018-12-26] MEDS: predniSONE 5 MG TAB PO SCH (08:50)
[2018-12-26] MEDS: CALCIUM 600MG + VIT D 400 IU TAB PO SCH (08:50)
[2018-12-26] MEDS: MAGNESIUM OXIDE 400 MG TAB PO SCH (08:50)
[2018-12-26] MEDS: FUROSEMIDE 20 MG TAB PO SCH (08:50)
[2018-12-26] MEDS: PANTOprazole 40 MG TAB PO SCH (08:50)
[2018-12-26] MEDS: ENOXAPARIN INJ 40 MG/0.4 ML SYR SQ SCH (08:51)
[2018-12-26] MEDS ORDERED: WARFARIN SOD 7.5 MG TAB PO STA (09:45)
--- NOTE | 2018-12-26 09:48 | Cardiology Progress Note ---
Date of Service December 26, 2018 Patient stable from cardiology standpoint for discharge after he receives his a.m. dose of sotalol and warfarin. Follow-up visits: The patient has a appointment to establish with a [facility] device clinic on 01/02/19, patient arrival time 11:45 AM. I have placed a referral to the [facility] anticoagulation clinic, anticipate he will need an INR early next week. Cardiology follow-up appointment has been requested and is in the process of being scheduled. 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 Patient to receive the sixth dose of sotalol this morning. EKG this morning reveals a stable findings of sinus rhythm with atrial pacing at 60 bpm, corrected QT interval is stable at 478 ms. Telemetry reveals ongoing sinus rhythm with atrial pacing and no significant arrhythmias in the last 24 hours. Pacemaker is implanted for heart rate support, sotalol initiated for control of his complex atrial arrhythmias with unsuccessful ablation of AVNRT. Stroke prophylaxis: Patient had transient atrial fibrillation induced during the EP study that terminated overnight several days ago while on amiodarone. He does have a history of postoperative atrial fibrillation after his cardiac surgery, and ultimately his Coumadin had been discontinued several months later. He did have a surgical left atrial appendage clip performed which should provide stroke prophylaxis. At this time, proceeding with at least a short-term Coumadin. INR today is 1.3. He is to follow-up with the [facility] anticoagulation clinic. Duration of ongoing Coumadin will be reassessed as an outpatient based on his device interrogations to see if he has a significant occult atrial fibrillation burden. I am optimistic in the future we may be able to safely discontinue his Coumadin after he is confident that his A. fib burden is low or nonexistent. Discharge on Coumadin 5 mg daily. Administration now dose of 7.5 mg, 7.5 mg yesterday as well. (6) Coronary artery disease: Continue aspirin, atorvastatin. Continue prior to hospital low-dose furosemide. He had required this to help control edema in the setting of gabapentin treatment. The patient's prior to hospital treatment with metoprolol has been discontinued in favor of transition to sotalol. (7) HLA-B27 spondyloarthropathy: Continue prior to hospital dose of prednisone 5 mg daily. Subjective Chief complaint: Follow-up shortness of breath, tachycardia Subjective: Patient feels well. He has been tolerating his current medications including the addition of Coumadin and sotalol well. Telemetry reveals stable findings. Physical Exam Vital Signs (Past 24 Hours): Last Vital Signs Temp 36.6 C 12/26/18 04:05 Pulse 66 12/26/18 04:05 Resp 18 12/26/18 04:05 BP 138/65 12/26/18 04:05 Pulse Ox 96 12/26/18 04:05 Constitutional: well developed; no acute distress Respiratory: normal respiratory effort, lungs clear to auscultation Chest (Breasts): Chest: + pacemaker (Left infraclavicular pocket incision is clean dry and intact with Steri-Strips, no erythema, no hematoma) Gastrointestinal (Abdomen): Percussion/Palpation: abdomen soft; abdomen nontender, no guarding and abdomen not rigid Neurologic: Conversant, moves 4 extremities, follows commands deficit Psychiatric: A+Ox3, euthymic affect Results & Data Laboratory Results Coagulation 12/26/18 Range/Units 06:11 PT 13.5 H (9.0-12.0) Seconds CBC 12/26/18 Range/Units 06:11 WBC 5.34 (4.8-10.8) K/uL RBC 4.02 L (4.7-6.1) M/uL Hgb 12.0 L (14.0-18.0) g/dL Hct 35.8 L (42-52) % Plt Count 279 (130-400) K/uL Intake and Output 12/25/18 12/26/18 12/26/18 22:59 06:59 14:59 Intake Total 825 / 1555 Balance 825 / 955 Intake: Oral 825 / 1555 Medications Administered Current Inpatient Medications Acetaminophen (Tylenol) 650 mg PO Q4H PRN PRN Reason: Pain or Fever Stop: 01/20/19 14:23 Last Admin: 12/25/18 01:08 Dose: 650 mg Documented by: Al Hydrox/Mg Hydrox/Simethicone (Maalox) 15 ml PO Q4H PRN PRN Reason: Dyspepsia Stop: 01/20/19 14:23 Last Admin: 12/23/18 01:41 Dose: 15 ml Documented by: Aspirin (Ecotrin Ectab) 81 mg PO DAILY [facility] Stop: 01/21/19 08:59 Last Admin: 12/26/18 08:50 Dose: 81 mg Documented by: Atorvastatin Calcium (Lipitor) 40 mg PO DAILY [facility] Stop: 01/21/19 08:59 Last Admin: 12/26/18 08:50 Dose: 40 mg Documented by: Enoxaparin Sodium (Lovenox) 40 mg SQ QAM [facility] Stop: 01/23/19 13:59 Last Admin: 12/26/18 08:51 Dose: 40 mg Documented by: Furosemide (Lasix) 20 mg PO MoWeFrSa@0900 [facility] Stop: 01/21/19 08:59 Last Admin: 12/26/18 08:50 Dose: 20 mg Documented by: Gabapentin (Neurontin) 300 mg PO BID [facility] Stop: 01/20/19 20:59 Last Admin: 12/26/18 08:50 Dose: 300 mg Documented by: Magnesium Hydroxide (Milk Of Magnesia) 30 ml PO Q12H PRN PRN Reason: Constipation Stop: 01/20/19 14:23 Last Admin: 12/24/18 06:14 Dose: 30 ml Documented by: Magnesium Oxide (Mag-Ox) 400 mg PO DAILY [facility] Stop: 01/21/19 08:59 Last Admin: 12/26/18 08:50 Dose: 400 mg Documented by: Multivitamins/Minerals (Caltrate Plus) 1 tab PO BID [facility] Stop: 01/21/19 08:59 Last Admin: 12/26/18 08:50 Dose: 1 tab Documented by: Nitroglycerin (Nitrostat) 0.4 mg SL UD PRN PRN Reason: Chest Pain Stop: 01/20/19 14:23 Oxycodone HCl (Roxicodone Immediate Rel) 5 mg PO Q4 PRN PRN Reason: Pain Stop: 01/06/19 16:38 Pantoprazole Sodium (Protonix) 40 mg PO QAM [facility] Stop: 01/22/19 06:59 Last Admin: 12/26/18 08:50 Dose: 40 mg Documented by: Polyethylene Glycol (Miralax Powder Packet) 17 gm PO DAILY PRN PRN Reason: Constipation Stop: 01/20/19 14:23 Prednisone (Prednisone) 5 mg PO DAILY [facility] Stop: 01/21/19 08:59 Last Admin: 12/26/18 08:50 Dose: 5 mg Documented by: Sotalol HCl (Betapace) 120 mg PO BID [facility] Stop: 01/24/19 20:59 Last Admin: 12/25/18 20:39 Dose: 120 mg Documented by: Tamsulosin HCl (Flomax) 0.4 mg PO BID [facility] Stop: 01/20/19 20:59 Last Admin: 12/26/18 08:50 Dose: 0.4 mg Documented by: Warfarin Sodium (Coumadin) 7.5 mg PO DAILY@1600 [facility] Stop: 01/24/19 15:59 Last Admin: 12/25/18 16:33 Dose: 7.5 mg Documented by: (1) Coronary artery disease Coronary Disease-Associated Artery/Lesion type: bypass graft [place] vs. transplanted heart: [place] heart Associated angina: without angina Qualified Code(s): I25.810 - Atherosclerosis of coronary artery bypass graft(s) without angina pectoris
[2018-12-26] MEDS: SOTALOL HCL 80 MG TAB PO SCH (10:14)
--- NOTE | 2018-12-26 10:54 | Hospitalist Progress Note ---
Date of Service December 26, 2018 Assessment & Plan (1) AVNRT (AV bia re-entry tachycardia): sinus node dysfunction and complex atrial arrhythmias including h/o atrial flutter, atrioventricular bia reentrant tacycardia, paroxysmal atrial fibrillation; history of surgical left atrial appendage clip Received Adenosine in the ER and was starting on IV amiodarone that was discontinued Cardiology electrophysiology service attempted ablation on 12/22/18 but unable to assess results of ablation due to recurrent atrial fbrillation S/P pacemaker insertion on 12/23/18 Currently paced on telemonitor Continue Sotalol 120 mg BID Avoid QT prolonging medications such as fluoroquinolone and macrolide antibiotics Daily EKGs done since startting on sotalol to monitor QTC are stable OK from cardiology standpoint to discharge home today Follow up with Cardiology clinic next week for device check Clinically stable (2) Atrial fibrillation: (3) Tachy-narciso syndrome: Had frequent episodes of atrial fibrillation during EPS. S/P Pacemaker placement on 12/[address] Tamayo Metoloprol was discontinued and now on Sotalol Continue coumadin with INR 1.3 today Continue coumadin 5mg on discharge Follow up with the coag clinic to monitor PT/INR (4) RBBB (right bundle branch block with left anterior fascicular block): follow EKGs with new pacemaker Stable (5) Coronary artery disease: Continue ASA, Statin (6) HTN (hypertension): blood pressure stable Continue lasix (7) Dyslipidemia: Continue statin (8) Lichen planus: Continue prednisone 5mg daily Follows Dr. Abdullahi Rheumatology (9) Polymyalgia rheumatica: Continue prednisone 5mg daily Follow[address] Dr. Abdullahi Rheumatology (10) GERD (gastroesophageal reflux disease): Continue PPI (11) BPH (benign prostatic hyperplasia): Continue flomax (12) DVT prophylaxis: on coumadin with INR 1.3 On Lovenox subq CODE STATUS FULL CODE Disposition Follow up with PCP dr. Castorena on 12/29 @ 8 AM [facility] device clinic on 01/02/19, patient arrival time 11:45 AM. Check PT/INR on Saturday at the coag clinic Follow up with cardiology (Office will call your for the appointment) Subjective Pt was seen and examined Sitting in chair with no distress Pt said that he feels fine He has been walking in the hallway with no discomfort Denies any chest pain, palpitation, dizziness and SOB Physical Exam Vital Signs (Past 24 Hours): Last Vital Signs Temp 36.6 C 12/26/18 04:05 Pulse 66 12/26/18 04:05 Resp 18 12/26/18 04:05 BP 138/65 12/26/18 04:05 Pulse Ox 96 12/26/18 04:05 Physical Exam: General- No acute distress Head- atraumatic Eyes- PERRL, EOMI, ENT- oropharynx clear Neck- supple, no JVD Lungs- clear to auscultation Heart- regular rhythm; no murmur Abdomen- normal bowel sounds, soft, nontender Extremities- no calf tenderness Neuro- alert, oriented x 3; PERRL, EOMI; no facial palsy; no dysarthria Skin- warm & dry (1) BPH (benign prostatic hyperplasia) Lower urinary tract symptom presence: unspecified whether lower urinary tract symptoms present Qualified Code(s): N40.0 - Benign prostatic hyperplasia witho ut lower urinary tract symptoms (2) Coronary artery disease Associated angina: without angina Coronary Disease-Associated Artery/Lesion type: bypass graft [place] vs. transplanted heart: [place] heart Qualified Code(s): I25.810 - Atherosclerosis of coronary artery bypass graft(s) without angina pectoris (3) GERD (gastroesophageal reflux disease) Esophagitis presence: esophagitis presence not specified Qualified Code(s): K21.9 - Gastro-esophageal reflux disease without esophagitis (4) HTN (hypertension) Hypertension type: essential hypertension Qualified Code(s): I10 - Essential (primary) hypertension
--- NOTE | 2018-12-27 09:02 | Discharge Summary ---
Date of Service December 27, 2018 Admission HPI Per Admitting Provider This is a 78-year-old male who has significant PMH CAD status post CABG 4 in 01/2018, Hx of aflutter status post caval triscuspid isthmus ablation in 12/09/17, hx of recurrent pericarditis, hypertension, HLD, PMR, HLA-B27, Lichen Planus, Chronic steroid therapy, GERD, BPH who presents to [facility] ED secondary to tachycardia and SOB. Pt was notably getting out of the shower when he developed acute SOB. His smart watch alerted him of HR of 180bpm. He presented to ED. Initial ecg performed at 9:33am revealed wide complex tachycardia 168bpm. Initially received bolus of IV amiodarone and then amio infusion. Cardiology was consulted who recommended IV adenosine 6mg. Serial ECG performed and per cardiology felt to be in a AVNRT. We have been called for admission to PCU for cardiac monitoring and planned EP procedure in a.m. Currently he is feeling much improved, "wiped out, tired." Denies recent illness, f/c/s, chest pain, current palpitations or sob, hemopytsis, n/v/d, change in bowel or bladder habits. He does elicit that his colchicine was recently stopped by cardiology for a recurrent pericarditis and given his recurrent pericarditis he required higher doses of chronic prednisone. He is currently back to his regimen of 5mg daily. Admission Exam Per Admitting Provider Gen: WD/WN, M, NAD, sitting up in bed, appears fatigued, flat affected, conversing easily Head: Normocephalic, Atraumatic Eyes: Sclera normal, no conjunctival injection, PERRLA, EOMI ENT: Gross hearing intact, normal pharynx, mucous membranes moist Neck: supple, no adenopathy, No JVD, no bruit, Resp: Clear to auscultation b/l, no wheeze, rales, rhonchi. Normal insp/exp effort, no accessory muscle use CV: Regular rate, regular rhythm, no murmur, rub, gallop, or ectopy Abd: +BS x 4, soft, nontender, nondistended Musculoskeletal: moves extremities active rom x 4, strength intact, good striper spray gun strength Extremities: No edema bilaterally Skin: warm, moist, no rash, negative turgor, cap refill < 2sec Neuro: Alert and oriented x 3, speech normal, good mood/affect, cran nerve 2-12 intact grossly : deferred Principal Diagnosis AVNRT (AV bia re-entry tachycardia) Atrial fibrillation Tachy-narciso syndrome Discharge Exam General- No acute distress Head- atraumatic Eyes- PERRL, EOMI, ENT- oropharynx clear Neck- supple, no JVD Lungs- clear to auscultation Heart- regular rhythm; no murmur Abdomen- normal bowel sounds, soft, nontender Extremities- no calf tenderness Neuro- alert, oriented x 3; PERRL, EOMI; no facial palsy; no dysarthria Skin- warm & dry Discharge Data Allergies Allergy/AdvReac Type Severity Reaction Status Date / Time No Known Allergies Allergy Unverified 12/21/18 10:21 Consultations 12/21/18 11:34 ED Decision to Admit Stat 12/21/18 12:00 Consult Cardiology Stat 12/21/18 16:00 Consult Cardiology Routine Procedures Performed Operation Date: 12/22/18 09:00 Actual Procedures p EPS + Ablation for SVT Flutter - Raad Aguillon MD s LA Pacing (Add-On) - Raad Aguillon MD s Drug Stimulation - Raad Aguillon MD Operation Date: 12/23/18 08:00 Actual Procedures p Pacer with A/V Leads (Dual) - Raad Aguillon MD Ordered Studies 12/22/18 16:49 MR brain wo con Urgent 12/23/18 07:15 EP Lab Images for PACS ONCE XR chest 2V routine CLINICAL HISTORY: EXACT TIME ORDERED Evaluate for pneumothorax and l COMPARISON STUDY: 12/21/2017 FINDINGS: Placement of a permanent bipolar cardiac pacemaker. Leads in good position. Findings of a prior median sternotomy. Infiltrative changes left base slightly improved. Lungs otherwise appear clear. IMPRESSION: Permanent bipolar cardiac pacemaker placement with leads in good position. No evidence pneumothorax. Left basilar infiltrate slightly improved. The above report was generated using voice recognition software. It may contain grammatical, syntax or spelling errors. Electronically signed by: Lawrence Rubio M.D. 12/24/2018 8:32 AM Dictated: 12/24/18830 Transcribed: 12/24/18830 MRI OF THE BRAIN WITHOUT IV CONTRAST CLINICAL HISTORY: Left foot drop. Atrial fibrillation. COMPARISON STUDY: No priors. TECHNIQUE: MRI of the brain was performed utilizing various T1 and T2-weighted sequences in the axial, sagittal, and coronal planes. IV contrast was not administered for this examination. FINDINGS: Brain parenchyma: There is age-related involutional change noting mild subcortical and periventricular microangiopathic disease. There is no hemorrhage or mass effect. There is no restricted diffusion to suggest acute ischemia. North-white matter differentiation is preserved. No extra-axial fluid collection is seen. The cerebellar tonsils are normal in configuration. Ventricles, sulci, and cisterns: Prominent secondary to involutional change. Pituitary and sella: Unremarkable. Intracranial vasculature: Normal flow voids are maintained at the skull base. Orbits: The bony orbits are grossly intact. Orbital contents are normal in appearance, noting bilateral ocular lens implants. Sinuses and mastoids: Clear. Calvarium: Unremarkable. Cervical cord: Partially visualized cervical spinal cord is normal in morphology and signal intensity. IMPRESSION: No acute intracranial abnormality. Electronically signed by: Greg Mccartney M.D. 12/22/2018 9:01 PM Dictated: 12/22/182057 Transcribed: 12/22/182057 XR chest 1V portable CLINICAL HISTORY: 78 years-old Male presenting with Chest Pain. TECHNIQUE: Portable upright AP view of the chest was obtained. COMPARISON: 06/23/2018. FINDINGS: Median sternotomy wires and left atrial appendage occlusion device noted. Atherosclerosis and tortuosity of the thoracic aorta. Cardiac silhouette moderately enlarged. Partial obscuration of the left heart border. Pulmonary vascular prominence. Basilar predominant left lung opacity and bronchial wall thickening. No large effusion or pneumothorax. Degenerative changes of the left glenohumeral joint. Upper abdomen normal. IMPRESSION: 1. Apparent left basilar infiltrate resulting in partial obscuration of the left heart border. This may represent a prominent epicardial fat pad or developing infiltrate. Consider PA and lateral views for further assessment. 2. Cardiac megaly with mild volume overload. Electronically signed by: Claudy Frias M.D. 12/21/2018 10:54 AM Dictated: 12/21/18 1052 Transcribed: 12/21/18 105 Hospital Course (1) AVNRT (AV bia re-entry tachycardia): sinus node dysfunction and complex atrial arrhythmias including h/o atrial flutter, atrioventricular bia reentrant tacycardia, paroxysmal atrial fibrillation; history of surgical left atrial appendage clip Received Adenosine in the ER and was starting on IV amiodarone that was discontinued Cardiology electrophysiology service attempted ablation on 12/22/18 but unable to assess results of ablation due to recurrent atrial fbrillation S/P pacemaker insertion on 12/23/18 Currently paced on telemonitor Continue Sotalol 120 mg BID Avoid QT prolonging medications such as fluoroquinolone and macrolide antibiotics Daily EKGs done since startting on sotalol to monitor QTC are stable OK from cardiology standpoint to discharge home today Follow up with Cardiology clinic next week for device check Clinically stable (2) Atrial fibrillation: (3) Tachy-narciso syndrome: Had frequent episodes of atrial fibrillation during EPS. S/P Pacemaker placement on 12/[address] Tamayo Metoloprol was discontinued and now on Sotalol Continue coumadin with INR 1.3 today Continue coumadin 5mg on discharge Follow up with the coag clinic to monitor PT/INR (4) RBBB (right bundle branch block with left anterior fascicular block): follow EKGs with new pacemaker Stable (5) Coronary artery disease: Continue ASA, Statin (6) HTN (hypertension): blood pressure stable Continue lasix (7) Dyslipidemia: Continue statin (8) Lichen planus: Continue prednisone 5mg daily Follows Dr. Abdullahi Rheumatology (9) Polymyalgia rheumatica: Continue prednisone 5mg daily Follows Dr. Abdullahi Rheumatology (10) GERD (gastroesophageal reflux disease): Continue PPI (11) BPH (benign prostatic hyperplasia): Continue flomax (12) DVT prophylaxis: on coumadin with INR 1.3 On Lovenox subq CODE STATUS FULL CODE Disposition Follow up with PCP dr. Castorena on 12/29 @ 8 AM [facility] device clinic on 01/02/19, patient arrival time 11:45 AM. Check PT/INR on Saturday at the coag clinic Follow up with cardiology (Office will call your for the appointment) Total Time Total Time Spent Total Time Spent (In Minutes): 35 minutes Total Time Includes: Examination of the Patient, Discharge Planning, Medication Reconciliation, Communication With Other Providers and Other Discharge Plan Discharge Items Patient Disposition: Home - Self-Care Reason For Visit: AV BIA REENTRANT TACHYCARDIA Discharge Diagnosis: AVNRT (AV bia re-entry tachycardia) Atrial fibrillation Tachy-narciso syndrome: Discharge Goals: Decrease discomfort, Diagnostic testing, Improve disease control and Increase independence Activity: As commented below Non-emergency contact: Primary Care Provider and Film Reproducer Call non-emergency contact if: you have any medication questions, your temperature is above 101, your wound has increased redness, your wound has increased drainage and your wound pain has increased Diet: Heart Healthy Addtl Provider Instructions: Follow up with PCP dr. Castorena on 12/29 @ 8 AM Appointment at [facility] device [facility] on 01/02/19, patient arrival time 11:45 AM. Check PT/INR on Saturday at the coumadin clinic Follow up with cardiology (Office will call your for the appointment) Don't drive until your doctor says it's OK. OK to shower tomorrow Do not lift the left elbow over the left shoulder for 1 month Do not lift no more than 10 lbs for 1 week Do not stretch your arm behind your back for as long as directed by your doctor. Keep incision area clean and dry Check your incision area for signs of infection (redness, swelling, drainage, or warmth). Before you receive any treatment, tell all healthcare providers (including your dentist) that you have a pacemaker. Keep your cell phone away from your pacemaker. Don't carry the phone in your shirt pocket overlying the pacemaker, even when it's turned off. Avoid strong magnets If you order for an MRI in the future, please inform that you have a pacemaker Medication Instructions: Coumadin Warfarin is a medicine prescribed to prevent blood clots and stroke Warfarin will thin your blood and help prevent new clots Take your medications exactly as directed Never skip a dose. Never take a double dose. If you miss a dose, take it as soon as you remember It is important for your doctor to monitor your prothrombin time (PT). This is a lab test Keep your appointment for lab tests Risk of Adverse Drug Reactions and Interactions: Warfarin increases your risk of bleeding The food you eat and other medications you take can affect how Warfarin works in your body Ask your doctor about daily aspirin therapy It is very important to talk with your doctor about all of the other medicines, antibiotics, vitamins or herbal products that you are taking All of your medication must be approved by your doctor, including new medicines, as well as medicines you have taken before you started taking Warfarin Avoid NSAIDs (Motrin, Aleve, Naproxen, Ibuprofen, Advil, Meloxicam,..) due to risks of bleeding Diet: In order for Warfarin to work properly, it is important to keep your intake of Vitamin K as consistent as possible You should avoid any sudden change in Vitamin K intake Report any significant changes in your diet or weight to your doctor Call your Primary Care doctor if you experience any of the following: Swelling or Pain in your leg Sudden, continuous pain deep in a muscle Pain that worsens when you are active or when you stand still for a long time Chest Pain Sudden Shortness of Breath Rapid or pounding heart beat Fainting Dizziness Cough with blood or bloody sputum Sweating more than normal Bruises Heavy or uncontrolled bleeding Blood in your urine, stool or vomit Black or tarry stools It is important for you to keep your follow up appointments with your medical provider. Prescriptions: New sotalol 80 mg Tablet 120 mg PO BID 30 Days Qty: 90 RF: 0 warfarin [Coumadin] 5 mg tablet 5 mg PO DAILY Qty: 30 RF: 0 Continued atorvastatin 40 mg tablet 40 mg PO DAILY RF: 0 prednisone 5 mg tablet 5 mg PO DAILY RF: 0 aspirin [Aspir-81] 81 mg Tablet,Delayed Release (Dr/Ec) 81 mg PO DAILY RF: 0 tamsulosin 0.4 mg capsule 0.4 mg PO BID RF: 0 furosemide 20 mg tablet 20 mg PO 4XWK RF: 0 gabapentin 100 mg capsule 300 mg PO BID RF: 0 risedronate 35 mg tablet 35 mg PO WK RF: 0 calcium carbonate-vitamin D3 [Calcium 500 + D] 500 mg(1,250mg) -200 unit Tablet 2 tab PO DAILY RF: 0 magnesium oxide 400 mg Capsule 400 mg PO DAILY RF: 0 Discontinued metoprolol succinate 25 mg tablet extended release 24 hr 25 mg PO DAILY RF: 0 Stand-Alone Forms: [facility] Discharge Orders: Discharge Order (Routine); Ordered 12/26/18 Ordered By: Kellee Logan Admission Data Admit Date/Time: 12/21/18 12:32 Attending Provider: Kellee Logan Admit Provider: Vinnie Grossman Primary Care Provider: Nikita Brady Other Providers: Vinnie Grossman ; Raad Aguillon ; John Tamayo Service: Telemetry Other Interventions: Discharge Summary Assessment (RN) Last Done: 12/26/18 11:25 DC Date/Time DO NOT enter until pt leaves facility: 12/26/18 11:57
--- NOTE | 2019-02-19 14:04 | Procedure Note ---
Procedure Note Date of Service December 22, 2018 Note Procedure performed: Ablation of supraventricular tachycardia, complete electrophysiologic testing including pacing from the left atrium via the coronary sinus, arrhythmia induction using program stimulation on and off isoproterenol, ultrasound-guided vascular access, mapping of tachycardia sites using roving catheter, cardioversion Staff dietary assistant: Kimani Aguillon MD Indication: The patient is a 78-year-old gentleman who presented [facility] with symptoms of palpitations. He has no the emergency room to have an unusual rhythm with episodes of tachycardia. Based on his symptoms and arrhythmias felt a good candidate for electrophysiologic testing and possible ablation. Procedure detail: Patient was informed of the risks benefits and alternatives to the intended procedure. He understood and wished to proceed. He is taken to the electrophysiology suite in a fasting state. Conscious sedation was administered per protocol the patient was monitored electrocardiographically throughout today's procedure. The right internal jugular his right femoral areas were prepped and draped in usual sterile fashion. Right internal jugular vein was subsequently access using modified Seldinger technique under ultrasound guidance and 6 Pashto venous sheath was placed at the site over guidewire. The right femoral vein was then anesthetized using subcutaneous administration of lidocaine solution. The right femoral vein was accessed 3 times using modified Selinger technique. She has were placed over guidewires at this site used felt a passage of the EP catheters to the respective chambers under fluoroscopic guidance. This included coronary sinus, right ventricular and his bundle catheters. The patient's baseline conduction was characterized. A tachycardia was induced using program stimulation on and off isoproterenol. The mechanism of the tachycardia was identified. A radiofrequency ablation catheter was advanced to the area of interest and tachycardia sites mapped. Radiofrequency lesions were placed in this area attempt to eliminate the tachycardia. However, the patient had frequent episodes of atrial fibrillation which precluded additional ablation or study. Eventually the patient underwent cardioversion with return to sinus rhythm. Prior to discharge from the EP lab he had a return to atrial fibrillation. At the conclusion of the case the sheath and catheters were removed. Hemostasis was achieved at the access sites using manual pressure. The patient tolerated procedure well. There were no immediate complications. Findings: Baseline intracardiac intervals Cycling the atrium 1380 milliseconds Cycling in the ventricle 1234 milliseconds LA interval 110 milliseconds QRS duration 178 milliseconds QT interval 448 milliseconds with a corrected QT interval 403 H interval 72 milliseconds HV interval 48 milliseconds It should be noted that patient's presenting rhythm was a junctional rhythm Av Wenckebach occurred at 420 milliseconds Av node effective refractory period was 310 milliseconds With program stimulation there was induction of a tachycardia Tachycardia cycle length was 390 milliseconds. Ventricular entrainment of the tachycardia resulted in a post pacing interval 160 milliseconds which is greater than 150 milliseconds different from the tachycardia cycle length. 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 A 4 millimeter 7 Pashto radiofrequency ablation catheter was advanced to the area of the slow pathway and radiofrequency lesions were placed in a temperature limited mode. As noted above, complete ablation could not be performed as the patient had persistent atrial fibrillation. Impression: Junctional rhythm at baseline Normal intracardiac intervals and AV bia function at baseline Inducible AVNRT Recurrent episodes of atrial fibrillation Due to recurrent atrial fibrillation no conclusions can be drawn regarding the efficacy of the radiofrequency lesions placed for typical slow fast AVNRT Coding
== END 2018-12-26 11:57 | disposition home or self-care (01) | DRG 244 ==
LOC: ED 09:12 → 2E 12:32 → SUATTDRO 12:32 → 2E 13:55

== ENCOUNTER 2023-08-06 21:00 | Inpatient (IN) ==
--- NOTE | 2023-08-06 23:42 | Emergency Department Note ---
Impression & Plan Anemia, Anticoagulated, Ambulatory dysfunction, Acute leg pain, Cellulitis of leg ED Provider Note NAME: CRISTINA RODARTE AGE: 83 SEX: M : 1940 ARRIVES VIA: Walk-In INFORMANT: Patient, ED PROVIDER(S): Quoc Jaime MD CHIEF COMPLAINT: Leg pain MEDICAL DECISION MAKING: Patient presents due to concern for leg pain which is been ongoing the last 2 weeks and was initially secondary to a fall. Patient initially was stating that he wanted to go home the patient did have a DVT ultrasound completed. Patient has good DP pulse do not believe requires arterial Doppler. I was able to look outpatient records show the patient did have negative pelvis and left femur x-rays but the patient does have pain in the distal extremities so we will need tibia-fibula ankle and foot x-rays were ordered and the patient was ordered oxycodone. Patient was ordered a dose of Keflex. Pains improved. After further discussion the patient does not believe that he can go home comfortably. Patient does live by himself and has no in-home care. IV was established and blood work was obtained. Blood work shows a normal white count hemoglobin of 10 which relatively chronic and stable from the 29th of last month. Platelet count is unremarkable. Kidney function unremarkable with therapeutic INR at 2. Reviewed the patient's x-rays do not show any obvious fracture or dislocation. I did speak the on-call hospitalist Dr. Mcdonald. Discussion w/ other healthcare providers: Dr. Mcdonald inpatient medicine service Prior /Outside records reviewed: I reviewed the patient's outpatient most recent blood work which showed creatinine 1.9. I did review the patient's x-ray reports for pelvis and femurs did not show any obvious fracture Differential diagnosis: Fracture, sprain, strain, subluxation, dislocation, contusion, ligamentous injury, neurovascular, as well as other etiologies were considered. Diagnostics, as interpreted by me: ECG: None Cardiac monitoring: An order was placed for continuous cardiac monitoring. The monitor shows a rate of 75 with paced rhythm. Patient was placed on pulse oximetry Medical decision rules: None Imaging studies: I informally interpreted the patient's knee x-ray which does not show obvious fracture dislocation with formal report to follow. I informally interpreted the patient's tibia-fibula x-ray which does not show obvious fracture dislocation. Formal report to follow. I informally interpreted the patient's ankle x-ray which does not show obvious fracture or dislocation. Formal report to follow. I informally interpreted the patient's foot x-ray which does not show obvious fracture or dislocation. Formal report to follow. HPI: Patient presents due to concern for worsening left lower extremity pain. Patient states that he fell about 2 weeks ago and also struck his head on a bookcase. The patient was seen at that time and had CAT scans performed along with plain x-rays and these were negative. The patient states that he has been seen in the outpatient setting several times where he had negative x-rays and also did have some blood work performed. The patient states that he still had persistent pain. Patient has been taking some tramadol at home which is mildly improved his symptoms. The patient does take Coumadin. Patient denies any additional injury since the fall 2 weeks ago. PAST MEDICAL HISTORY: See Below PAST SURGICAL HISTORY: See Below SOCIAL HISTORY: See Below HOME MEDICATIONS: See Below ALLERGIES: See Below VITALS: See Below PHYSICAL EXAMINATION: GENERAL: NAD, non-toxic. EYE EXAM: Normal conjunctiva. PERRL, no anisocoria and EOM's grossly intact w/o pain. OROPHARYNX: Moist mucus membranes, grossly normal dentition. NECK: Supple, no nuchal rigidity, no adenopathy, non-tender. No signs of meningismus. FROM of the neck with good chin to chest and neck extension. No stridor. LUNGS: Clear to auscultation. Normal chest wall mechanics. HEART: NSR, no MRG. ABDOMEN: Abdomen soft, non-tender, no masses, no rebound or guarding. BACK: No CVA TTP. SKIN: No rashes and no bruising. UPPER EXTREMITIES: Upper extremities are grossly normal. LOWER EXTREMITIES: Left lower extremity swelling noted with erythema and warmth from the mid bauer to the ankle, no crepitus, ecchymosis noted, mild TTP to the left knee, good strength in flexion extension at the hip knee and ankle. Good DP pulse. NEURO EXAM: A&O x3, cranial nerves II-XII grossly intact, normal speech, moves all 4 extremities. Past Med/Surg History Medical History (Updated 08/07/23 @ 03:20 by Quoc Jaime MD) BPH (benign prostatic hyperplasia) CKD (chronic kidney disease), stage III Coronary artery disease s/p CABG x 4 01/2018 Dyslipidemia GERD (gastroesophageal reflux disease) History of atrial flutter History of pericarditis recurrent HLA-B27 spondyloarthropathy HTN (hypertension) Lichen planus on chronic prednisone therapy, follows Dr. Abdullahi Osteoarthritis Osteoporosis Polymyalgia rheumatica Surgical History H/O hernia repair History of cataract extraction History of cataract surgery Hx of four vessel coronary artery bypass graft "01/30/18 at [facility]" Hx of prior ablation treatment "12/09/17" Family History Mother , 44 Cirrhosis, Onset Age: 44 Father , 66 Lung cancer Coronary heart disease Myocardial infarction Other Hypertension Social History Smoking Status: Never smoker Cigarettes Per Day: 1/2 ppd; Second Hand Exposure: No; Hx Alcohol Use: Yes Alcohol type: beer and wine Alcohol Intake Frequency Comment: 1 glass of wine daily Hx Substance Use: No Preferred Language: Mohawk Communication Ability: Effective Clerk Secretary Required: No Beliefs That Will Affect Care: None marital status: Single Current Living Situation: Alone Current Living Situation Comment: Lives alone, has significant other that lives next door current occupational status: retired 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 [employer] Feels Safe at Home: Yes Assistive Devices: Glasses Allergies Allergies Allergy/AdvReac Type Severity Reaction Status Date / Time No Known Allergies Allergy Unverified 08/07/23 01:46 Home Meds Home Medications Medication Instructions Recorded Confirmed aspirin 81 mg tablet,delayed 81 mg PO QAM 12/21/18 08/07/23 release (Aspir-) atorvastatin 40 mg tablet 40 mg PO HS 12/21/18 08/07/23 calcium carbonate 500 mg-vitamin 1 tab PO BID 12/21/18 08/07/23 D3 5 mcg (200 unit) tablet (Calcium 500 + D) furosemide 20 mg tablet 20 mg PO 4XWK 12/21/18 08/07/23 gabapentin 100 mg capsule 300 mg PO BID 12/21/18 08/07/23 magnesium oxide 400 mg PO QPM 12/21/18 08/07/23 tamsulosin 0.4 mg capsule 0.4 mg PO AMPM 12/21/18 08/07/23 sotalol 120 mg tablet 120 mg PO BID 04/14/19 08/07/23 acetaminophen 500 mg tablet 500 mg PO Q6H PRN Fever Or Pain 08/07/23 08/07/23 baclofen 10 mg tablet 10 mg PO HS 08/07/23 08/07/23 docusate sodium 100 mg capsule 100 mg PO BID PRN Constipation 08/07/23 08/07/23 (Colace) duloxetine 60 mg capsule,delayed 120 mg PO QAM 08/07/23 08/07/23 release esomeprazole magnesium 40 mg 40 mg PO QPM 08/07/23 08/07/23 capsule,delayed release (Nexium) ezetimibe 10 mg tablet 10 mg PO QAM 08/07/23 08/07/23 tramadol 50 mg tablet 50 mg PO Q6 PRN pain,severe 08/07/23 08/07/23 warfarin 5 mg tablet 5 mg PO 6XWK 08/07/23 08/07/23 warfarin 5 mg tablet 7.5 mg PO .DAILY ON Thursdays08/07/23 08/07/23 Results & Data (ED) Vital Signs Vital Signs - 24 hr 08/06/23 21:14 08/06/23 23:55 08/07/23 00:37 Temperature 36.3 C L Temperature Source Temporal Artery Scan Pulse Rate 78 76 76 Pulse Rhythm Regular Respiratory Rate 18 17 Respiratory Effort / Characteristics Non-Labored Spontaneous Respiratory Depth Normal Respiratory Pattern Regular Blood Pressure 116/65 Blood Pressure Mean 82 Blood Pressure Position Sitting Pulse Oximetry 97 96 Oxygen Delivery Method Room Air Room Air Sepsis Recent Fever Within 48 Hours No Sepsis New/Unexplained Change in Mental Status N/A Sepsis Action Taken by Nursing No Action Required 08/07/23 00:00 08/07/23 01:00 08/07/23 02:00 Temperature Temperature Source Pulse Rate 76 69 73 Pulse Rhythm Respiratory Rate 17 18 24 Respiratory Effort / Characteristics Respiratory Depth Respiratory Pattern Blood Pressure 167/84 H 182/89 H 150/82 H Blood Pressure Mean 111 120 104 Blood Pressure Position Pulse Oximetry 99 98 94 Oxygen Delivery Method Room Air Room Air Room Air Sepsis Recent Fever Within 48 Hours Sepsis New/Unexplained Change in Mental Status Sepsis Action Taken by Residential Medications Current Medication List: was personally reviewed by me Laboratory Data Attestation: I reviewed the patient's lab results. 08/07/23 00:57 08/07/23 00:58 Lab Results 08/07/23 08/07/23 08/07/23 Range/Units 00:57 00:57 00:58 WBC 5.44 (4.8-10.8) K/ul RBC 3.64 L (4.70-6.10) M/uL Hgb 10.9 L (14.0-18.0) g/dl Hct 33.2 L (42.0-52.0) % MCV 91.2 (80.0-100.0) fL MCH 29.9 (25.0-34.0) pg MCHC 32.8 (32.0-36.0) g/dL RDW Std Deviation 50.4 H (36.4-46.3) fL RDW Coeff of Priya 15.3 H (11.5-14.5) % Plt Count 300 (130-400) K/uL MPV 8.9 L (9.4-12.4) fL Immature Gran % (Auto) 0.4 % Neut % (Auto) 70.2 % Lymph % (Auto) 16.7 % [place] % (Auto) 7.5 % Eos % (Auto) 4.8 % Baso % (Auto) 0.4 % Neut # (Auto) 3.82 (1.40-6.50) K/uL Lymph # (Auto) 0.91 L (1.20-3.40) K/uL [place] # (Auto) 0.41 (0.11-0.59) K/uL Eos # (Auto) 0.26 (0.00-0.50) K/uL Baso # (Auto) 0.02 (0.00-0.20) K/uL Immature Gran # (Auto) 0.02 (0.01-0.20) K/uL PT 21.0 H (9.0-12.0) Seconds INR 2.0 H (0.9-1.1) Sodium 135 L (136-145) mmol/L Potassium 4.2 (3.5-5.1) mmol/L Chloride 101 (98-107) mmol/L Carbon Dioxide 29 (21-32) mmol/L Anion Gap 5 (3-11) BUN 17 (6-23) mg/dl Creatinine 0.79 (0.6-1.4) mg/dl Est Cr Clr Drug Dosing Not Reportable Est GFR ( Amer) 96.9 ml/min Est GFR (Non-Af Amer) 83.6 ml/min BUN/Creatinine Ratio 21.5 H (10-20) Glucose 103 H (70-99(Fasting)) mg/dl Calcium 9.3 (8.6-10.3) mg/dl Magnesium 2.1 (1.7-2.4) mg/dl Total Bilirubin 1.1 H (0.2-1.0) mg/dl AST 17 (13-39) U/L ALT 18 (7-52) U/L Alkaline Phosphatase 113 H (34-104) U/L Total Protein 7.3 (6.0-8.3) gm/dl Albumin 4.2 (3.4-5.0) gm/dl Globulin 3.1 (2.5-4.0) gm/dl Albumin/Globulin Ratio 1.4 (0.9-2) TSH 1.627 (0.300-4.500) uIu/ml Administered Medications Discontinued Medications Cephalexin HCl (Cephalexin 250 Mg Cap) 500 mg PO NOW ONE Stop: 08/07/23 00:16 Last Admin: 08/07/23 00:59 Dose: 500 mg Documented By: CAROL Oxycodone HCl (Oxycodone Hcl Ir 5 Mg Tab (Immediate Release)) 5 mg PO NOW STA Stop: 08/07/23 00:16 Last Admin: 08/07/23 00:58 Dose: 5 mg Documented By: CAROL Imaging Data Radiologist's Impression: Venous Doppler Study 08/06/23 21:24 Exam(s): US VENOUS LEFT LOWER EXTREMITY EXAM: US Duplex Left Lower Extremity Veins CLINICAL HISTORY: Reason for exam: Leg deep vein thrombosis (DVT) suspected. TECHNIQUE: Real-time duplex ultrasound scan of the left lower extremity veins integrating B-mode two-dimensional vascular structure, Doppler spectral analysis, color flow Doppler imaging and compression. COMPARISON: 07/26/2023. FINDINGS: Deep veins: Unremarkable. No DVT in the visualized common femoral, femoral, proximal deep femoral or popliteal veins. The veins demonstrate normal color flow, are normally compressible, with normal phasic flow and/or augmentation response. Superficial veins: Unremarkable. No thrombus in the visualized great saphenous vein. Soft tissues: No acute findings. No popliteal cyst. IMPRESSION: No ultrasonographic evidence of deep venous thrombosis involving the left lower extremity. Electronically signed by: Susan Flannery MD 08/07/23 00:10 AM Discharge Plan Visit Data Chief Complaint: Leg Injury/Pain Stated Complaint: LT LEG PAIN, SWOLLEN ED Provider: Quoc Jaime Discharge Problem: Anemia, Anticoagulated, Ambulatory dysfunction, Acute leg pain, Cellulitis of leg Forms Stand Alone Forms: My [facility] Prescriptions Prescriptions: No Action sotalol 120 mg tablet 120 mg PO BID atorvastatin 40 mg tablet 40 mg PO HS aspirin [Aspir-81] 81 mg Tablet,Delayed Release (Dr/Ec) 81 mg PO QAM tamsulosin 0.4 mg capsule 0.4 mg PO AMPM furosemide 20 mg tablet 20 mg PO [id number] Rx Instructions: TAKES ON MON,WEDS,SAT,SAT gabapentin 100 mg capsule 300 mg PO BID calcium carbonate-vitamin D3 [Calcium 500 + D] 500 mg(1,250mg) -200 unit Tablet 1 tab PO BID magnesium oxide 400 mg Capsule 400 mg PO QPM tramadol 50 mg tablet 50 mg PO Q6 PRN (Reason: pain,severe) baclofen 10 mg tablet 10 mg PO HS duloxetine 60 mg capsule,delayed release(DR/EC) 120 mg PO QAM docusate sodium [Colace] 100 mg capsule 100 mg PO BID PRN (Reason: Constipation) ezetimibe 10 mg tablet 10 mg PO QAM acetaminophen 500 mg Tablet 500 mg PO Q6H PRN (Reason: Fever Or Pain) warfarin 5 mg tablet 5 mg PO 6XWK Rx Instructions: take every day except warfarin 5 mg tablet 7.5 mg PO .DAILY ON THURSDAYS esomeprazole magnesium [Nexium] 40 mg Capsule,Delayed Release(Dr/Ec) 40 mg PO QPM Referrals Referrals: Nikita Brady MD [Primary Care Provider] -
--- NOTE | 2023-08-07 00:12 | Ultrasound Report ---
Exam(s): US VENOUS LEFT LOWER EXTREMITY EXAM: US Duplex Left Lower Extremity Veins CLINICAL HISTORY: Reason for exam: Leg deep vein thrombosis (DVT) suspected. TECHNIQUE: Real-time duplex ultrasound scan of the left lower extremity veins integrating B-mode two-dimensional vascular structure, Doppler spectral analysis, color flow Doppler imaging and compression. COMPARISON: 07/26/2023. FINDINGS: Deep veins: Unremarkable. No DVT in the visualized common femoral, femoral, proximal deep femoral or popliteal veins. The veins demonstrate normal color flow, are normally compressible, with normal phasic flow and/or augmentation response. Superficial veins: Unremarkable. No thrombus in the visualized great saphenous vein. Soft tissues: No acute findings. No popliteal cyst. IMPRESSION: No ultrasonographic evidence of deep venous thrombosis involving the left lower extremity. Electronically signed by: Susan Flannery MD 08/07/23 00:10 AM
[2023-08-07] MEDS ORDERED: cephALEXin 250 MG CAP PO ONE (00:15)
[2023-08-07] MEDS ORDERED: oxyCODONE HCL IR 5 MG TAB (IMMEDIATE RELEASE) PO STA (00:15)
[2023-08-07 01:31] LABS: Basophils # (auto) 0.02 K/uL (0.00-0.20); Basophils % (auto) 0.4 %; Eosinophils # (auto) 0.26 K/uL (0.00-0.50); Eosinophils % (auto) 4.8 %; Hematocrit (blood only) 33.2 % (42.0-52.0); Hemoglobin 10.9 g/dl (14.0-18.0); Immature Granulocytes # (auto) 0.02 K/uL (0.01-0.20); Immature Granulocytes % (auto) 0.4 %; Lymphocytes # (auto) 0.91 K/uL (1.20-3.40); Lymphocytes % (auto) 16.7 %; Mean Corpuscular Hemoglobin 29.9 pg (25.0-34.0); Mean Corpuscular Hgb Conc 32.8 g/dL (32.0-36.0); Mean Corpuscular Volume 91.2 fL (80.0-100.0); Mean Platelet Volume 8.9 fL (9.4-12.4); Monocytes # (auto) 0.41 K/uL (0.11-0.59); Monocytes % (auto) 7.5 %; Neutrophils # (auto) 3.82 K/uL (1.40-6.50); Neutrophils % (auto) 70.2 %; Platelet Count 300 K/uL (130-400); RDW Coefficient of Variation 15.3 % (11.5-14.5); RDW Standard Deviation 50.4 fL (36.4-46.3); Red Blood Count 3.64 M/uL (4.70-6.10); White Blood Count 5.44 K/ul (4.8-10.8)
[2023-08-07 01:51] LABS: Alanine Aminotransferase 18 U/L (7-52); Albumin Globulin Ratio 1.4 (0.9-2); Albumin Level 4.2 gm/dl (3.4-5.0); Alkaline Phosphatase 113 U/L (34-104); Anion Gap 5 (3-11); Aspartate Aminotransferase 17 U/L (13-39); BUN Creatinine Ratio 21.5 (10-20); Bilirubin,Total 1.1 mg/dl (0.2-1.0); Blood Urea Nitrogen 17 mg/dl (6-23); Calcium 9.3 mg/dl (8.6-10.3); Carbon Dioxide 29 mmol/L (21-32); Chloride 101 mmol/L (98-107); Est GFR (African American) 96.9 ml/min; Est GFR (Non-African American) 83.6 ml/min; Globulin 3.1 gm/dl (2.5-4.0); Glucose 103 mg/dl (70-99(Fasting)); Magnesium 2.1 mg/dl (1.7-2.4); Potassium 4.2 mmol/L (3.5-5.1); Sodium 135 mmol/L (136-145); Total Protein 7.3 gm/dl (6.0-8.3)
[2023-08-07 02:05] LABS: Thyroid Stimulating Hormone 1.627 uIu/ml (0.300-4.500)
[2023-08-07] MEDS ORDERED: DOXYCYCLINE HYCLATE 100 MG in DEXTROSE 5% MINI-B 100 ML IV STA (03:56)
--- NOTE | 2023-08-07 03:58 | History & Physical Report ---
Date of Service August 07, 2023 Assessment & Plan (1) Hematoma of left thigh: Plan: History trauma Secondary LLE cellulitis, no sepsis for now Acute on chronic anemia secondary to above hx hx SSS status post PPM on Coumadin, INR therapeutic syncopal event versus concussion hx CAD status post CABG hypertension, slightly elevated upon arrival at the ER HLA B27 spondyloarthropathy, PMR as per records, currently not on steroid Rx mood disorder, stable past tobacco abuse Medical telemetry given possible syncopal event Check orthostatic vitals, TTE, pacemaker interrogation for syncope work-up Doxycycline for LLE cellulitis Orthopedics consult Re: Traumatic LLE hematoma Appropriate to hold home aspirin/Coumadin for now given hematoma causing hemoglobin drop from baseline Vitamin K 1 dose Follow H&H, transfuse PRBC if hemoglobin less than 8 and or for symptomatic anemia Resume Coumadin if hemoglobin stable PT OT eval DVT prophylaxis. SCDs while Coumadin on hold if INR less than 2 Full code Text document was generated using [employer] voice recognition software. It may contain grammatical or spelling errors. Kindly contact undersigned for clarification of any documentation item in question. History of Present Illness Chief Complaint: Worsening left leg swelling/pain Primary Care Provider: Nikita Brady MD History obtained from patient and records. 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 Patient fell at home 2 weeks ago after tripping over a chair while chasing his cat. Patient fell backwards and hit his head. May have passed out. Achy headache symptoms. Left thigh pain. No chest pain, no SOB. Patient consulted ER. Posterior scalp swelling on CT head imaging. Patient discharged home. Patient noted worsening left leg swelling following injury. No fractures on outpatient pelvic and left femur x-rays. LE Dopplers done at ER negative for DVT. Patient discharged home from the ER. Worsening LLE swelling since second ER visit. No headache, no chest pain, no unusual shortness of breath. No fever, no chills. Keflex administered at the ER. 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 [employer] Allergies Allergy/AdvReac Type Severity Reaction Status Date / Time No Known Allergies Allergy Unverified 08/07/23 01:46 Home Medications Medication Instructions Recorded Confirmed Type aspirin 81 mg tablet,delayed 81 mg PO QAM 12/21/18 08/07/23 History release (Aspir-) atorvastatin 40 mg tablet 40 mg PO HS 12/21/18 08/07/23 History calcium carbonate 500 mg-vitamin 1 tab PO BID 12/21/18 08/07/23 History D3 5 mcg (200 unit) tablet (Calcium 500 + D) furosemide 20 mg tablet 20 mg PO 4XWK 12/21/18 08/07/23 History gabapentin 100 mg capsule 300 mg PO BID 12/21/18 08/07/23 History magnesium oxide 400 mg PO QPM 12/21/18 08/07/23 History tamsulosin 0.4 mg capsule 0.4 mg PO AMPM 12/21/18 08/07/23 History sotalol 120 mg tablet 120 mg PO BID 04/14/19 08/07/23 History acetaminophen 500 mg tablet 500 mg PO Q6H PRN Fever Or Pain 08/07/23 08/07/23 History baclofen 10 mg tablet 10 mg PO HS 08/07/23 08/07/23 History docusate sodium 100 mg capsule 100 mg PO BID PRN Constipation 08/07/23 08/07/23 History (Colace) duloxetine 60 mg capsule,delayed 120 mg PO QAM 08/07/23 08/07/23 History release esomeprazole magnesium 40 mg 40 mg PO QPM 08/07/23 08/07/23 History capsule,delayed release (Nexium) ezetimibe 10 mg tablet 10 mg PO QAM 08/07/23 08/07/23 History tramadol 50 mg tablet 50 mg PO Q6 PRN pain,severe 08/07/23 08/07/23 History warfarin 5 mg tablet 5 mg PO 6XWK 08/07/23 08/07/23 History warfarin 5 mg tablet 7.5 mg PO .DAILY ON Thursdays08/07/23 08/07/23 History Past Med/Surg History Medical History (Updated 08/07/23 @ 09:03 by Angy Arias PA-C) BPH (benign prostatic hyperplasia) CKD (chronic kidney disease), stage III Coronary artery disease s/p CABG x 4 01/2018 Dyslipidemia GERD (gastroesophageal reflux disease) History of atrial flutter History of pericarditis recurrent HLA-B27 spondyloarthropathy HTN (hypertension) Lichen planus on chronic prednisone therapy, follows Dr. Kaylen Posadas Osteoporosis Polymyalgia rheumatica Surgical History H/O hernia repair History of cataract extraction History of cataract surgery Hx of four vessel coronary artery bypass graft "01/30/18 at [facility]" Hx of prior ablation treatment "12/09/17" Family History Mother , 44 Cirrhosis, Onset Age: 44 Father , 66 Lung cancer Coronary heart disease Myocardial infarction Other Hypertension Social History Smoking Status: Never smoker Cigarettes Per Day: 1/2 ppd; Second Hand Exposure: No; Hx Alcohol Use: No Hx Substance Use: No Preferred Language: Puerto Rican Communication Ability: Effective It Integration Architect Required: No Beliefs That Will Affect Care: None marital status: Single Current Living Situation: Alone Current Living Situation Comment: Lives alone, has significant other that lives next door current occupational status: retired 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[employer] [place] Feels Safe at Home: Yes Assistive Devices: Cane Review of Systems Review of Systems: As per HPI, all other systems reviewed and negative Physical Exam Physical Exam: GENERAL: Comfortable, pleasant, no respiratory distress SKIN: Pallor, warm HEENT: Bespectacled, pale palpebral conjunctivae, no ptosis, dry buccal mucosa NECK : Supple, no tenderness CHEST : CTA, no tenderness HEART : RRR, no obvious murmurs ABDOMEN: Some distention, nontender EXTREMITIES : Tender LLE induration with ecchymotic areas, no other conspicuous deformities noted NEUROLOGIC : Coherent, no facial asymmetry, gait and stance not assessed Results & Data Results & Data Vital Signs (Past 12 Hours) Vital Signs Temp Pulse Resp BP Pulse Ox O2 Del Method 08/07/23 03:53 72 10/11/23 02:00 73 24 150/82 H 94 Room Air 08/07/23 01:00 69 18 182/89 H 98 Room Air 08/07/23 00:00 76 17 167/84 H 99 Room Air 08/07/23 00:37 76 17 96 Room Air 08/06/23 23:55 76 08/06/23 21:14 36.3 C L 78 18 116/65 97 Room Air Laboratory Results Laboratory Results WBC 5.44 K/ul (4.8-10.8) 08/07/23 00:57 RBC 3.64 M/uL (4.70-6.10) L 08/07/23 00:57 Hgb 10.9 g/dl (14.0-18.0) L 08/07/23 00:57 Hct 33.2 % (42.0-52.0) L 08/07/23 00:57 MCV 91.2 fL (80.0-100.0) 08/07/23 00:57 MCH 29.9 pg (25.0-34.0) 08/07/23 00:57 MCHC 32.8 g/dL (32.0-36.0) 08/07/23 00:57 RDW Std Deviation 50.4 fL (36.4-46.3) H 08/07/23 00:57 RDW Coeff of Priya 15.3 % (11.5-14.5) H 08/07/23 00:57 Plt Count 300 K/uL (130-400) 08/07/23 00:57 MPV 8.9 fL (9.4-12.4) L 08/07/23 00:57 Immature Gran % (Auto) 0.4 % 08/07/23 00:57 Neut % (Auto) 70.2 % 08/07/23 00:57 Lymph % (Auto) 16.7 % 08/07/23 00:57 [place] % (Auto) 7.5 % 08/07/23 00:57 Eos % (Auto) 4.8 % 08/07/23 00:57 Baso % (Auto) 0.4 % 08/07/23 00:57 Neut # (Auto) 3.82 K/uL (1.40-6.50) 08/07/23 00:57 Lymph # (Auto) 0.91 K/uL (1.20-3.40) L 08/07/23 00:57 [place] # (Auto) 0.41 K/uL (0.11-0.59) 08/07/23 00:57 Eos # (Auto) 0.26 K/uL (0.00-0.50) 08/07/23 00:57 Baso # (Auto) 0.02 K/uL (0.00-0.20) 08/07/23 00:57 Immature Gran # (Auto) 0.02 K/uL (0.01-0.20) 08/07/23 00:57 PT 21.0 Seconds (9.0-12.0) H 08/07/23 00:57 INR 2.0 (0.9-1.1) H 08/07/23 00:57 Sodium 135 mmol/L (136-145) L 08/07/23 00:58 Potassium 4.2 mmol/L (3.5-5.1) 08/07/23 00:58 Chloride 101 mmol/L (98-107) 08/07/23 00:58 Carbon Dioxide 29 mmol/L (21-32) 08/07/23 00:58 Anion Gap 5 (3-11) 08/07/23 00:58 BUN 17 mg/dl (6-23) 08/07/23 00:58 Creatinine 0.79 mg/dl (0.6-1.4) 08/07/23 00:58 Est Cr Clr Drug Dosing Not Reportable 08/07/23 00:58 Est GFR ( Amer) 96.9 ml/min 08/07/23 00:58 Est GFR (Non-Af Amer) 83.6 ml/min 08/07/23 00:58 BUN/Creatinine Ratio 21.5 (10-20) H 08/07/23 00:58 Glucose 103 mg/dl (70-99(Fasting)) H 08/07/23 00:58 Calcium 9.3 mg/dl (8.6-10.3) 08/07/23 00:58 Magnesium 2.1 mg/dl (1.7-2.4) 08/07/23 00:58 Total Bilirubin 1.1 mg/dl (0.2-1.0) H 08/07/23 00:58 AST 17 U/L (13-39) 08/07/23 00:58 ALT 18 U/L (7-52) 08/07/23 00:58 Alkaline Phosphatase 113 U/L (34-104) H 08/07/23 00:58 Total Protein 7.3 gm/dl (6.0-8.3) 08/07/23 00:58 Albumin 4.2 gm/dl (3.4-5.0) 08/07/23 00:58 Globulin 3.1 gm/dl (2.5-4.0) 08/07/23 00:58 Albumin/Globulin Ratio 1.4 (0.9-2) 08/07/23 00:58 TSH 1.627 uIu/ml (0.300-4.500) 08/07/23 00:58 Impressions Venous Doppler Study 08/06/23 21:24 Exam(s): US VENOUS LEFT LOWER EXTREMITY EXAM: US Duplex Left Lower Extremity Veins CLINICAL HISTORY: Reason for exam: Leg deep vein thrombosis (DVT) suspected. TECHNIQUE: Real-time duplex ultrasound scan of the left lower extremity veins integrating B-mode two-dimensional vascular structure, Doppler spectral analysis, color flow Doppler imaging and compression. COMPARISON: 07/26/2023. FINDINGS: Deep veins: Unremarkable. No DVT in the visualized common femoral, femoral, proximal deep femoral or popliteal veins. The veins demonstrate normal color flow, are normally compressible, with normal phasic flow and/or augmentation response. Superficial veins: Unremarkable. No thrombus in the visualized great saphenous vein. Soft tissues: No acute findings. No popliteal cyst. IMPRESSION: No ultrasonographic evidence of deep venous thrombosis involving the left lower extremity. Electronically signed by: Susan Flannery MD 08/07/23 00:[address] L femur: 1. No acute fracture within the left femur. 2. 5 x 2.9 x 4.8 cm acute intramuscular hematoma within the vastus lateralis. 3. Moderate subcutaneous edema of the left thigh. CT left tibia-fibula: 1. No acute fracture within the left tibia or fibula. 2. Moderate subcutaneous edema of the left lower leg. CT left foot: No acute fracture or dislocation within the left foot. Diagnostic Findings Chest x-ray as per my interpretation cardiomegaly, atelectasis, pacemaker left
[2023-08-07] MEDS ORDERED: PHYTONADIONE 2.5 MG in DEXTROSE 5% 50 ML IV ONE (04:00)
[2023-08-07] MEDS ORDERED: PROMETHAZINE HCL 6.25 MG in SODIUM CHLORIDE 0.9% 50 ML IV PRN (04:06)
[2023-08-07] MEDS ORDERED: SODIUM CHLORIDE 0.9% 1,000 ML IV ONE (04:06)
[2023-08-07] MEDS ORDERED: MoRPHine SULFATE 2 MG/ML CARP IV PRN (04:20)
[2023-08-07 04:21] LABS: Creatine Kinase 105 U/L (30-223)
[2023-08-07 05:13] LABS: Basophils # (auto) 0.01 K/uL (0.00-0.20); Basophils % (auto) 0.2 %; Eosinophils # (auto) 0.15 K/uL (0.00-0.50); Eosinophils % (auto) 3.4 %; Hematocrit (blood only) 30.6 % (42.0-52.0); Hemoglobin 10.1 g/dl (14.0-18.0); Immature Granulocytes # (auto) 0.03 K/uL (0.01-0.20); Immature Granulocytes % (auto) 0.7 %; Lymphocytes # (auto) 0.89 K/uL (1.20-3.40); Mean Corpuscular Hemoglobin 30.1 pg (25.0-34.0); Mean Corpuscular Volume 91.1 fL (80.0-100.0); Mean Platelet Volume 8.9 fL (9.4-12.4); Monocytes # (auto) 0.31 K/uL (0.11-0.59); Neutrophils # (auto) 3.07 K/uL (1.40-6.50); Neutrophils % (auto) 68.7 %; Platelet Count 256 K/uL (130-400); RDW Coefficient of Variation 15.3 % (11.5-14.5); RDW Standard Deviation 50.4 fL (36.4-46.3); Red Blood Count 3.36 M/uL (4.70-6.10); White Blood Count 4.46 K/ul (4.8-10.8)
[2023-08-07 05:30] LABS: Anion Gap 5 (3-11); BUN Creatinine Ratio 22.2 (10-20); Blood Urea Nitrogen 16 mg/dl (6-23); Calcium 8.6 mg/dl (8.6-10.3); Carbon Dioxide 27 mmol/L (21-32); Chloride 103 mmol/L (98-107); Est GFR (African American) 100.7 ml/min; Est GFR (Non-African American) 86.9 ml/min; Glucose 105 mg/dl (70-99(Fasting)); Potassium 3.8 mmol/L (3.5-5.1); Sodium 135 mmol/L (136-145)
[2023-08-07 05:47] LABS: Prothrombin Time 21.2 Seconds (9.0-12.0)
--- NOTE | 2023-08-07 06:47 | CT Scan Report ---
LEFT FOOT CT CT DOSE: HISTORY: Fall. Left foot swelling TECHNIQUE: Multiaxial CT images of the left foot were performed and reformatted in the sagittal and c oronal plane without the use of contrast. A dose lowering technique was utilized adhering to the tiffany Borges. COMPARISON: Left foot radiograph 08/07/2023. FINDINGS: No acute fracture or dislocation within the left foot. The Lisfranc joint appears intact. M ild degenerative changes are noted. Small well-corticated ossific densities adjacent to the medial an d lateral malleoli which favor old avulsion type injuries. There are plantar and posterior calcaneal spurs noted. Subcutaneous edema seen throughout the left foot. IMPRESSION: No acute fracture or dislocation within the left foot. ACT 112: Negative or not required by law. Electronically signed by: Mac Sherman M.D. 08/07/2023 6:45 AM
--- NOTE | 2023-08-07 06:50 | CT Scan Report ---
CT femur LT wo con CLINICAL HISTORY: Fall. Swelling. COMPARISON STUDY: Left knee radiographs performed earlier today. TECHNIQUE: Axial images of the left femur and thyroid cancer without IV contrast. Sagittal and ghotra l reconstructions were viewed. Automated exposure control was utilized for the study. A dose lowerin g technique was utilized adhering to the principles of ALARA. FINDINGS: There is no acute fracture within the left femur. No osseous lesions are identified. Alignm ent of the left hip and left knee is anatomic. There is moderate left hip osteoarthritis. There is mo derate osteoarthritis within the medial compartment of the left knee. Moderate subcutaneous edema of the left thigh is noted. Note is made of an acute intramuscular hematoma within the vastus lateralis at the level of the midshaft of the left femur which measures 5 x 2.9 x 4.8 cm. There is adjacent frances ma. No additional hematomas are identified. IMPRESSION: 1. No acute fracture within the left femur. 2. 5 x 2.9 x 4.8 cm acute intramuscular hematoma within the vastus lateralis. 3. Moderate subcutaneous edema of the left thigh. ACT 112: Negative or not required by law. Electronically signed by: Kishor Lew M.D. 08/07/2023 6:49 AM
--- NOTE | 2023-08-07 06:53 | CT Scan Report ---
CT tib/fib LT wo con CLINICAL HISTORY: swelling COMPARISON STUDY: Left tibia and fibula radiographs performed earlier today. TECHNIQUE: Axial images of the left tibia and fibula and lower leg were obtained without IV contrast. Sagittal and coronal reconstructions were viewed. Automated exposure control was utilized for the st udy. A dose lowering technique was utilized adhering to the principles of ALARA. FINDINGS: There is no acute fracture within the left tibia or fibula. No osseous lesions are identifi ed. Talar dome is intact. There is moderate medial compartment osteoarthritis of the left knee. Well- corticated ossicles along the fibular tip and medial malleolus are chronic. Moderate subcutaneous frances ma of the left lower leg is noted. No hematoma/fluid collection within the left lower leg is noted. IMPRESSION: 1. No acute fracture within the left tibia or fibula. 2. Moderate subcutaneous edema of the left lower leg. ACT 112: Negative or not required by law. Electronically signed by: Kishor Lew M.D. 08/07/2023 6:52 AM
--- NOTE | 2023-08-07 07:08 | XRay Report ---
XR knee LT 1 or 2V routine, XR tibia fibula LT 2V, XR ankle LT min 3V routine, XR foot LT min 3V rout ine CLINICAL HISTORY: fall. Left lower extremity pain. COMPARISON STUDY: None. FINDINGS: Soft tissue swelling within the visualized left lower extremity. Mild vascular calcificatio ns are noted. Surgical clips are seen within the proximal left lower leg. Mild degenerative changes w ithin the left knee and left foot. No acute fracture or dislocation within the left knee, left tibia, left fibula, left ankle, or left foot. Trace left knee effusion. The ankle mortise and Lisfranc join t appears intact. Plantar and posterior calcaneal spurs are noted. Small well-corticated ossific dens ities adjacent to the medial and lateral malleoli consistent with old avulsion type injuries. IMPRESSION: Diffuse soft tissue swelling within the left lower extremity. No acute fractures within the left knee, left lower leg, left ankle, or left foot. ACT 112: Negative or not required by law. Electronically signed by: Mac Sherman M.D. 08/07/2023 7:07 AM
--- NOTE | 2023-08-07 07:29 | XRay Report ---
XR chest 1V portable HISTORY: leg swelling COMPARISON: Chest and left rib series 01/14/2023. FINDINGS: No pneumothorax. No pleural effusions. A few bibasilar linear densities favor subsegmental atelectasis or scarring. Otherwise, no focal lung consolidations to suggest a pneumonia. No evidence for pulmonary edema. Slightly rotated study. Left-sided dual-chamber pacemaker and poststernotomy rahat nges are noted. The heart remains borderline enlarged. There are degenerative changes within the left shoulder. IMPRESSION: No acute process. ACT 112: Negative or not required by law. Electronically signed by: Mac Sherman M.D. 08/07/2023 7:28 AM
[2023-08-07] MEDS: SOTALOL HCL 80 MG TAB PO SCH ×2 (08:59→20:52)
[2023-08-07] MEDS: TAMSULOSIN HCL 0.4 MG CAP PO SCH ×2 (09:02→20:52)
[2023-08-07] MEDS: GABAPENTIN 300 MG CAP PO SCH ×2 (09:02→20:52)
[2023-08-07] MEDS: DULoxetine HCL 60 MG CAP PO SCH (09:03)
[2023-08-07] MEDS: EZETIMIBE 10 MG TAB PO SCH (09:04)
[2023-08-07] MEDS: ACETAMINOPHEN 500 MG TAB PO PRN ×2 (09:06→22:27)
--- NOTE | 2023-08-07 09:06 | Orthopedic Consultation ---
Date of Consultation August 07, 2023 Assessment & Plan (1) Hematoma of left thigh: -No surgical intervention indicated at this time -Recommend observation -Trend H&H to ensure stability. Optimize INR accordingly -Recommend rest, elevation of LLE and warm compresses to the hematoma -May continue to WBAT -Pain control and medical management per primary History of Present Illness Reason for Consultation: Left thigh hematoma Attending Physician: John López MD History of Present Illness Mr. Marie is an 83 year old male with history of CAD s/p CABG with coronary stent x 4 and A-fib on Coumadin, CKD3, HTN, DLD, Lichen planus on chronic prednisone, GERD, BPH, PMR, osteoporosis and OA among others who presents for evaluation of left thigh and lower extremity pain and swelling which he developed after he fell into a bookcase about 2 weeks ago. The patient did visit the ED at that time and workup was negative. Since then, he has continued with pain, bruising and swelling in his left thigh which has since radiated down his lower extremity. He did follow up with his PCP this week but as his symptoms worsened he presented to the ED yesterday. He did have a LLE US which was negative for DVT. CT of the LLE was also obtained and was concerning for 2.5 x 2.9 x 4.8 cm acute intramuscular hematoma of the vastus lateralis and moderate subcutaneous edema. Orthopedics was consulted for further evaluation. Allergies Allergy/AdvReac Type Severity Reaction Status Date / Time No Known Allergies Allergy Unverified 08/07/23 01:46 Home Medications Medication Instructions Recorded Confirmed Type aspirin 81 mg tablet,delayed 81 mg PO QAM 12/21/18 08/07/23 History release (Aspir-) atorvastatin 40 mg tablet 40 mg PO HS 12/21/18 08/07/23 History calcium carbonate 500 mg-vitamin 1 tab PO BID 12/21/18 08/07/23 History D3 5 mcg (200 unit) tablet (Calcium 500 + D) furosemide 20 mg tablet 20 mg PO 4XWK 12/21/18 08/07/23 History gabapentin 100 mg capsule 300 mg PO BID 12/21/18 08/07/23 History magnesium oxide 400 mg PO QPM 12/21/18 08/07/23 History tamsulosin 0.4 mg capsule 0.4 mg PO AMPM 12/21/18 08/07/23 History sotalol 120 mg tablet 120 mg PO BID 04/14/19 08/07/23 History acetaminophen 500 mg tablet 500 mg PO Q6H PRN Fever Or Pain 08/07/23 08/07/23 History baclofen 10 mg tablet 10 mg PO HS 08/07/23 08/07/23 History docusate sodium 100 mg capsule 100 mg PO BID PRN Constipation 08/07/23 08/07/23 History (Colace) duloxetine 60 mg capsule,delayed 120 mg PO QAM 08/07/23 08/07/23 History release esomeprazole magnesium 40 mg 40 mg PO QPM 08/07/23 08/07/23 History capsule,delayed release (Nexium) ezetimibe 10 mg tablet 10 mg PO QAM 08/07/23 08/07/23 History tramadol 50 mg tablet 50 mg PO Q6 PRN pain,severe 08/07/23 08/07/23 History warfarin 5 mg tablet 5 mg PO 6XWK 08/07/23 08/07/23 History warfarin 5 mg tablet 7.5 mg PO .DAILY ON Thursdays08/07/23 08/07/23 History Patient History Medical History (Updated 08/07/23 @ 09:03 by Angy Arias PA-C) BPH (benign prostatic hyperplasia) CKD (chronic kidney disease), stage III Coronary artery disease s/p CABG x 4 01/2018 Dyslipidemia GERD (gastroesophageal reflux disease) History of atrial flutter History of pericarditis recurrent HLA-B27 spondyloarthropathy HTN (hypertension) Lichen planus on chronic prednisone therapy, follows Dr. Abdullahi Osteoarthritis Osteoporosis Polymyalgia rheumatica Surgical History H/O hernia repair History of cataract extraction History of cataract surgery Hx of four vessel coronary artery bypass graft "01/30/18 at [facility]" Hx of prior ablation treatment "12/09/17" Family History Mother , 44 Cirrhosis, Onset Age: 44 Father , 66 Lung cancer Coronary heart disease Myocardial infarction Other Hypertension Social History Smoking Status: Never smoker Cigarettes Per Day: 1/2 ppd; Second Hand Exposure: No; Hx Alcohol Use: Yes Alcohol type: beer and wine Alcohol Intake Frequency Comment: 1 glass of wine daily Hx Substance Use: No Preferred Language: Grenadian Communication Ability: Effective 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: No Beliefs That Will Affect Care: None marital status: Single Current Living Situation: Alone Current Living Situation Comment: Lives alone, has significant other that lives next door current occupational status: retired 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 Erythema and edema to the calf and foot with tenderness to palpation. Compartments remain compressible. ROM intact at the thigh, knee and ankle with dorsi/plantar flexion, toes mobile. Sensation and d/p pulse intact Skin: Warm and dry. 1+ pitting pedal edema Results & Data Vital Signs (Past 12 Hours) Vital Signs Temp Pulse Resp BP Pulse Ox Pulse Ox O2 Del Method 08/07/23 04:53 95 08/07/23 04:00 88 16 95 08/07/23 03:00 74 15 124/69 94 Room Air 08/07/23 03:53 72 08/07/23 02:00 73 24 150/82 H 94 Room Air 08/07/23 01:00 69 18 182/89 H 98 Room Air 08/07/23 00:00 76 17 167/84 H 99 Room Air 08/07/23 00:37 76 17 96 Room Air 08/06/23 23:55 76 08/06/23 21:14 36.3 C L 78 18 116/65 97 Room Air O2 Del Method O2 Flow Rate 08/07/23 04:53 Room Air 0 08/07/23 04:00 08/07/23 03:00 08/07/23 03:53 08/07/23 02:00 08/07/23 01:00 08/07/23 00:00 08/07/23 00:37 08/06/23 23:55 08/06/23 21:14 Laboratory Results Laboratory Tests 08/07/23 08/07/23 04:49 04:49 WBC 4.46 L RBC 3.36 L Hgb 10.1 L Hct 30.6 L PT 21.2 H INR 2.0 H Diagnostic Findings LLE US: Negative for DVT CT left femur: 2.5 x 2.9 x 4.8 cm acute intramuscular hematoma of the vastus lateralis. Moderate subcutaneous edema of the thigh CT left lower extremity/foot: Moderate subcutaneous edema. Negative for acute fracture
[2023-08-07] MEDS ORDERED: INFLUENZA VACCINE HIGH-DOSE (HD-IIV4) PF 65+ 0.7mL SYR IM ONE (10:03)
[2023-08-07] MEDS: oxyCODONE HCL IR 5 MG TAB (IMMEDIATE RELEASE) PO PRN ×2 (14:11→20:50)
[2023-08-07] MEDS: DOCUSATE SODIUM 100 MG CAP PO PRN (15:01)
--- NOTE | 2023-08-07 16:45 | Communication Note ---
Date of Service: August 07, 2023 Patient seen and examined at bedside. He is comfortably lying on the bed. Reports that pain and swelling has improved. Reports that his thigh swelling has significantly improved in the last few weeks. Plan to continue ceftriaxone and doxycycline for cellulitis. Orthopedic consult noted On physical exam: GENERAL: Comfortable, pleasant, no respiratory distress SKIN: Pallor, warm HEENT: Bespectacled, pale palpebral conjunctivae, no ptosis, dry buccal mucosa NECK : Supple, no tenderness CHEST : CTA, no tenderness HEART : RRR, no obvious murmurs ABDOMEN: Some distention, nontender EXTREMITIES : Tender LLE induration with ecchymotic areas, no other conspicuous deformities noted NEUROLOGIC : Coherent, no facial asymmetry, gait and stance not assessed
[2023-08-07] MEDS: cefTRIAXone SODIUM 2,000 MG in DEXTROSE 5 % MINI-B 50 ML IV SCH (17:29)
[2023-08-07] MEDS: BACLOFEN 10 MG TAB PO SCH (20:51)
[2023-08-07] MEDS: PANTOprazole 40 MG TAB PO SCH (20:52)
[2023-08-07] MEDS ORDERED: SOTALOL HCL 80 MG TAB PO SCH (21:00)
[2023-08-07] MEDS ORDERED: DOXYCYCLINE HYCLATE 100 MG CAP PO SCH (21:00)
[2023-08-08 08:13] LABS: Basophils # (auto) 0.01 K/uL (0.00-0.20); Basophils % (auto) 0.2 %; Eosinophils # (auto) 0.23 K/uL (0.00-0.50); Eosinophils % (auto) 4.3 %; Hemoglobin 10.1 g/dl (14.0-18.0); Immature Granulocytes # (auto) 0.03 K/uL (0.01-0.20); Immature Granulocytes % (auto) 0.6 %; Lymphocytes # (auto) 0.94 K/uL (1.20-3.40); Lymphocytes % (auto) 17.5 %; Mean Corpuscular Hemoglobin 29.4 pg (25.0-34.0); Mean Corpuscular Hgb Conc 31.6 g/dL (32.0-36.0); Mean Platelet Volume 9.1 fL (9.4-12.4); Monocytes # (auto) 0.43 K/uL (0.11-0.59); Neutrophils # (auto) 3.73 K/uL (1.40-6.50); Neutrophils % (auto) 69.4 %; Platelet Count 285 K/uL (130-400); RDW Coefficient of Variation 15.3 % (11.5-14.5); RDW Standard Deviation 52.5 fL (36.4-46.3); Red Blood Count 3.44 M/uL (4.70-6.10); White Blood Count 5.37 K/ul (4.8-10.8)
[2023-08-08] MEDS ORDERED: VANCOMYCIN CONSULT ACTIVE PRN (08:26)
[2023-08-08 08:34] LABS: BUN Creatinine Ratio 21.3 (10-20); Calcium 8.9 mg/dl (8.6-10.3); Est GFR (African American) 92.3 ml/min; Est GFR (Non-African American) 79.6 ml/min; Potassium 3.9 mmol/L (3.5-5.1)
[2023-08-08] MEDS: GABAPENTIN 300 MG CAP PO SCH ×2 (08:44→20:10)
[2023-08-08] MEDS: TAMSULOSIN HCL 0.4 MG CAP PO SCH ×2 (08:44→20:12)
[2023-08-08] MEDS: EZETIMIBE 10 MG TAB PO SCH (08:44)
[2023-08-08] MEDS: DULoxetine HCL 60 MG CAP PO SCH (08:44)
[2023-08-08] MEDS ORDERED: VANCOMYCIN HCL 2,250 MG in SODIUM CHLORIDE 0.9% 500 ML IV ONE ×2 (08:45→09:00)
[2023-08-08] MEDS: SOTALOL HCL 80 MG TAB PO SCH ×2 (08:45→20:11)
[2023-08-08] MEDS ORDERED: VANCOMYCIN HCL 2,250 MG in SODIUM CHLORIDE 0.9% 500 ML IV SCH (09:00)
[2023-08-08 09:48] LABS: INR 1.1 (0.9-1.1); Prothrombin Time 12.2 Seconds (9.0-12.0)
--- NOTE | 2023-08-08 10:37 | Hospitalist Progress Note ---
Date of Service August 08, 2023 Assessment & Plan (1) Hematoma of left thigh: (2) Left leg cellulitis: Plan Patient is a 83-year-old male with history of A-fib on sotalol/Coumadin had a mechanical fall on July 22 Noted to have left thigh swelling since then. Presented to the ED on 07/22 and 07/26. Hemoglobin dropped from 13.2-10.2 during that. Remained stable since Noted to have increasing left lower extremity swelling and redness; return back to ED. Left femur CT personally reviewed; no acute fracture. 5 x 2.9 x 4.8 cm acute intramuscular hematoma within the vastus lateralis. Left tibia and fibula CT shows moderate subcutaneous edema of left lower leg. Hemoglobin remained stable PT/INR down trended after vitamin K which was given in ED We will start him on vancomycin; stop doxycycline. Continue on ceftriaxone. Resume DVT prophylaxis with Lovenox along with Coumadin. Elevate leg. Monitor CBC daily PT OT. Chronic conditions: hx hx SSS status post PPM on Coumadin hx CAD status post CABG hypertension, slightly elevated upon arrival at the ER HLA B27 spondyloarthropathy, PMR as per records, currently not on steroid Rx mood disorder, stable past tobacco abuse DVT prophylaxis. Lovenox, Coumadin resumed Full code Time spent evaluating patient, direct bedside care, chart review, placing orders, interpretation of diagnostic studies, discussion with consultants, patient, and family members, as well as other required patient management activities is 60 minutes Please note the above document was generated using voice recognition software. It may contain grammatical, syntax or spelling errors. Any formal questions or concerns about the content, text or information contained within the body of this dictation should be directly addressed to the provider for clarification Admission and Anticipated Discharge Date Admission Date: August 07, 2023 Subjective Patient seen and examined at bedside. He is sitting up on the chair at the side of the bed; not in distress. He reports the redness in his left lower extremity has continued to persist. Hemoglobin remained stable. Review of Systems Review of Systems: All systems reviewed & are unremarkable except as noted in Subjective Physical Exam Physical Exam: GENERAL: Comfortable, pleasant, no respiratory distress SKIN: Pallor, warm HEENT: Bespectacled, pale palpebral conjunctivae, no ptosis, dry buccal mucosa NECK : Supple, no tenderness CHEST : CTA, no tenderness HEART : RRR, no obvious murmurs ABDOMEN: Some distention, nontender EXTREMITIES : Tender LLE induration with ecchymotic areas, no other conspicuous deformities noted NEUROLOGIC : Coherent, no facial asymmetry, gait and stance not assessed Results & Data Results & Data Vital Signs (Past 12 Hours) Vital Signs Temp Pulse Pulse Resp BP Pulse Ox Pulse Ox 08/08/23 08:06 36.5 C 71 18 161/74 H 95 08/08/23 04:25 94 08/08/23 04:24 36.9 C 71 14 132/72 94 08/07/23 23:56 36.9 C 75 12 130/66 94 08/07/23 23:24 86 O2 Del Method O2 Del Method 08/08/23 08:06 Room Air 08/08/23 04:25 Room Air 08/08/23 04:24 Room Air 08/07/23 23:56 Room Air 08/07/23 23:24 Laboratory Results Laboratory Results WBC 5.37 K/ul (4.8-10.8) 08/08/23 07:05 RBC 3.44 M/uL (4.70-6.10) L 08/08/23 07:05 Hgb 10.1 g/dl (14.0-18.0) L 08/08/23 07:05 Hct 32.0 % (42.0-52.0) L 08/08/23 07:05 MCV 93.0 fL (80.0-100.0) 08/08/23 07:05 MCH 29.4 pg (25.0-34.0) 08/08/23 07:05 MCHC 31.6 g/dL (32.0-36.0) L 08/08/23 07:05 RDW Std Deviation 52.5 fL (36.4-46.3) H 08/08/23 07:05 RDW Coeff of Priya 15.3 % (11.5-14.5) H 08/08/23 07:05 Plt Count 285 K/uL (130-400) 08/08/23 07:05 MPV 9.1 fL (9.4-12.4) L 08/08/23 07:05 Immature Gran % (Auto) 0.6 % 08/08/23 07:05 Neut % (Auto) 69.4 % 08/08/23 07:05 Lymph % (Auto) 17.5 % 08/08/23 07:05 Stokes % (Auto) 8.0 % 08/08/23 07:05 Eos % (Auto) 4.3 % 08/08/23 07:05 Baso % (Auto) 0.2 % 08/08/23 07:05 Neut # (Auto) 3.73 K/uL (1.40-6.50) 08/08/23 07:05 Lymph # (Auto) 0.94 K/uL (1.20-3.40) L 08/08/23 07:05 Stokes # (Auto) 0.43 K/uL (0.11-0.59) 08/08/23 07:05 Eos # (Auto) 0.23 K/uL (0.00-0.50) 08/08/23 07:05 Baso # (Auto) 0.01 K/uL (0.00-0.20) 08/08/23 07:05 Immature Gran # (Auto) 0.03 K/uL (0.01-0.20) 08/08/23 07:05 PT 12.2 Seconds (9.0-12.0) H 08/08/23 08:53 INR 1.1 (0.9-1.1) 08/08/23 08:53 Sodium 137 mmol/L (136-145) 08/08/23 07:05 Potassium 3.9 mmol/L (3.5-5.1) 08/08/23 07:05 Chloride 104 mmol/L (98-107) 08/08/23 07:05 Carbon Dioxide 29 mmol/L (21-32) 08/08/23 07:05 Anion Gap 4 (3-11) 08/08/23 07:05 BUN 19 mg/dl (6-23) 08/08/23 07:05 Creatinine 0.89 mg/dl (0.6-1.4) 08/08/23 07:05 Est Cr Clr Drug Dosing 85.0 ml/min 08/08/23 07:05 Est GFR ( Amer) 92.3 ml/min 08/08/23 07:05 Est GFR (Non-Af Amer) 79.6 ml/min 08/08/23 07:05 BUN/Creatinine Ratio 21.3 (10-20) H 08/08/23 07:05 Glucose 102 mg/dl (70-99(Fasting)) H 08/08/23 07:05 Calcium 8.9 mg/dl (8.6-10.3) 08/08/23 07:05 Magnesium 2.1 mg/dl (1.7-2.4) 08/07/23 00:58 Total Bilirubin 1.1 mg/dl (0.2-1.0) H 08/07/23 00:58 AST 17 U/L (13-39) 08/07/23 00:58 ALT 18 U/L (7-52) 08/07/23 00:58 Alkaline Phosphatase 113 U/L (34-104) H 08/07/23 00:58 Total Creatine Kinase 105 U/L (30-223) 08/07/23 00:58 Total Protein 7.3 gm/dl (6.0-8.3) 08/07/23 00:58 Albumin 4.2 gm/dl (3.4-5.0) 08/07/23 00:58 Globulin 3.1 gm/dl (2.5-4.0) 08/07/23 00:58 Albumin/Globulin Ratio 1.4 (0.9-2) 08/07/23 00:58 TSH 1.627 uIu/ml (0.300-4.500) 08/07/23 00:58 Blood Type A Positive 08/07/23 04:49 Antibody Screen NEGATIVE 08/07/23 04:49 Impressions Venous Doppler Study 08/06/23 21:24 Exam(s): US VENOUS LEFT LOWER EXTREMITY EXAM: US Duplex Left Lower Extremity Veins CLINICAL HISTORY: Reason for exam: Leg deep vein thrombosis (DVT) suspected. TECHNIQUE: Real-time duplex ultrasound scan of the left lower extremity veins integrating B-mode two-dimensional vascular structure, Doppler spectral analysis, color flow Doppler imaging and compression. COMPARISON: 07/26/2023. FINDINGS: Deep veins: Unremarkable. No DVT in the visualized common femoral, femoral, proximal deep femoral or popliteal veins. The veins demonstrate normal color flow, are normally compressible, with normal phasic flow and/or augmentation response. Superficial veins: Unremarkable. No thrombus in the visualized great saphenous vein. Soft tissues: No acute findings. No popliteal cyst. IMPRESSION: No ultrasonographic evidence of deep venous thrombosis involving the left lower extremity. Electronically signed by: Susan Flannery MD 08/07/23 00:10 AM Ankle X-Ray 08/07/23 00:15 XR knee LT 1 or 2V routine, XR tibia fibula LT 2V, XR ankle LT min 3V routine, XR foot LT min 3V routine CLINICAL HISTORY: fall. Left lower extremity pain. COMPARISON STUDY: None. FINDINGS: Soft tissue swelling within the visualized left lower extremity. Mild vascular calcifications are noted. Surgical clips are seen within the proximal left lower leg. Mild degenerative changes within the left knee and left foot. No acute fracture or dislocation within the left knee, left tibia, left fibula, left ankle, or left foot. Trace left knee effusion. The ankle mortise and Lisfranc joint appears intact. Plantar and posterior calcaneal spurs are noted. Small well-corticated ossific densities adjacent to the medial and lateral malleoli consistent with old avulsion type injuries. IMPRESSION: Diffuse soft tissue swelling within the left lower extremity. No acute fractures within the left knee, left lower leg, left ankle, or left foot. ACT 112: Negative or not required by law. Electronically signed by: Mac Sherman M.D. 08/07/2023 7:07 AM Foot X-Ray 08/07/23 00:15 XR knee LT 1 or 2V routine, XR tibia fibula LT 2V, XR ankle LT min 3V routine, XR foot LT min 3V routine CLINICAL HISTORY: fall. Left lower extremity pain. COMPARISON STUDY: None. FINDINGS: Soft tissue swelling within the visualized left lower extremity. Mild vascular calcifications are noted. Surgical clips are seen within the proximal left lower leg. Mild degenerative changes within the left knee and left foot. No acute fracture or dislocation within the left knee, left tibia, left fibula, lef t ankle, or left foot. Trace left knee effusion. The ankle mortise and Lisfranc joint appears intact. Plantar and posterior calcaneal spurs are noted. Small well-corticated ossific densities adjacent to the medial and lateral malleoli consistent with old avulsion type injuries. IMPRESSION: Diffuse soft tissue swelling within the left lower extremity. No acute fractures within the left knee, left lower leg, left ankle, or left foot. ACT 112: Negative or not required by law. Electronically signed by: Mac Sherman M.D. 08/07/2023 7:07 AM Knee X-Ray 08/07/23 00:15 XR knee LT 1 or 2V routine, XR tibia fibula LT 2V, XR ankle LT min 3V routine, XR foot LT min 3V routine CLINICAL HISTORY: fall. Left lower extremity pain. COMPARISON STUDY: None. FINDINGS: Soft tissue swelling within the visualized left lower extremity. Mild vascular calcifications are noted. Surgical clips are seen within the proximal left lower leg. Mild degenerative changes within the left knee and left foot. No acute fracture or dislocation within the left knee, left tibia, left fibula, left ankle, or left foot. Trace left knee effusion. The ankle mortise and Li sfranc joint appears intact. Plantar and posterior calcaneal spurs are noted. Small well-corticated ossific densities adjacent to the medial and lateral malleoli consistent with old avulsion type injuries. IMPRESSION: Diffuse soft tissue swelling within the left lower extremity. No acute fractures within the left knee, left lower leg, left ankle, or left foot. ACT 112: Negative or not required by law. Electronically signed by: Mac Sherman M.D. 08/07/2023 7:07 AM Tibia/Fibula X-Ray 08/07/23 00:15 XR knee LT 1 or 2V routine, XR tibia fibula LT 2V, XR ankle LT min 3V routine, XR foot LT min 3V routine CLINICAL HISTORY: fall. Left lower extremity pain. COMPARISON STUDY: None. FINDINGS: Soft tissue swelling within the visualized left lower extremity. Mild vascular calcifications are noted. Surgical clips are seen within the proximal left lower leg. Mild degenerative changes within the left knee and left foot. No acute fracture or dislocation within the left knee, left tibia, left fibula, left ankle, or left foot. Trace left knee effusion. The ankle mortise and Lisfranc joint appears intact. Plantar and posterior calcaneal spurs are noted. Small well-corticated ossific densities adjacent to the medial and lateral malleoli consistent with old avulsion type injuries. IMPRESSION: Diffuse soft tissue swelling within the left lower extremity. No acute fractures within the left knee, left lower leg, left ankle, or left foot. ACT 112: Negative or not required by law. Electronically signed by: Mac Sherman M.D. 08/07/2023 7:07 AM Chest X-Ray 08/07/23 02:58 XR chest 1V portable HISTORY: leg swelling COMPARISON: Chest and left rib series 01/14/2023. FINDINGS: No pneumothorax. No pleural effusions. A few bibasilar linear densities favor subsegmental atelectasis or scarring. Otherwise, no focal lung consolidations to suggest a pneumonia. No evidence for pulmonary edema. Slightly rotated study. Left-sided dual-chamber pacemaker and poststernotomy changes are noted. The heart remains borderline enlarged. There are degenerative changes within the left shoulder. IMPRESSION: No acute process. ACT 112: Negative or not required by law. Electronically signed by: Mac Sherman M.D. 08/07/2023 7:[address] 08/07/23 03:57 CT femur LT wo con CLINICAL HISTORY: Fall. Swelling. COMPARISON STUDY: Left knee radiographs performed earlier today. TECHNIQUE: Axial images of the left femur and thyroid cancer without IV contrast. Sagittal and coronal reconstructions were viewed. Automated exposure control was utilized for the study. A dose lowering technique was utilized adhering to the principles of ALARA. FINDINGS: There is no acute fracture within the left femur. No osseous lesions are identified. Alignment of the left hip and left knee is anatomic. There is moderate left hip osteoarthritis. There is moderate osteoarthritis within the medial compartment of the left knee. Moderate subcutaneous edema of the left thigh is noted. Note is made of an acute intramuscular hematoma within the vastus lateralis at the level of the midshaft of the left femur which measures 5 x 2.9 x 4.8 cm. There is adjacent edema. No additional hematomas are identified. IMPRESSION: 1. No acute fracture within the left femur. 2. 5 x 2.9 x 4.8 cm acute intramuscular hematoma within the vastus lateralis. 3. Moderate subcutaneous edema of the left thigh. ACT 112: Negative or not required by law. Electronically signed by: Kishor Lew M.D. 08/07/2023 6:[address] 08/07/23 03:[address] DOSE: HISTORY: Fall. Left foot swelling TECHNIQUE: Multiaxial CT images of the left foot were performed and reformatted in the sagittal and coronal plane without the use of contrast. A dose lowering technique was utilized adhering to the principles of ALARA. COMPARISON: Left foot radiograph 08/07/2023. FINDINGS: No acute fracture or dislocation within the left foot. The Lisfranc joint appears intact. Mild degenerative changes are noted. Small well-corticated ossific densities adjacent to the medial and lateral malleoli which favor old avulsion type injuries. There are plantar and posterior calcaneal spurs noted. Subcutaneous edema seen throughout the left foot. IMPRESSION: No acute fracture or dislocation within the left foot. ACT 112: Negative or not required by law. Electronically signed by: Mac Sherman M.D. 08/07/2023 6:[address] 08/07/23 03:57 CT tib/fib LT wo con CLINICAL HISTORY: swelling COMPARISON STUDY: Left tibia and fibula radiographs performed earlier today. TECHNIQUE: Axial images of the left tibia and fibula and lower leg were obtained without IV contrast. Sagittal and coronal reconstructions were viewed. Automated exposure control was utilized for the study. A dose lowering technique was utilized adhering to the principles of ALARA. FINDINGS: There is no acute fracture within the left tibia or fibula. No osseous lesions are identified. Talar dome is intact. There is moderate medial compartment osteoarthritis of the left knee. Well-corticated ossicles along the fibular tip and medial malleolus are chronic. Moderate subcutaneous edema of the left lower leg is noted. No hematoma/fluid collection within the left lower leg is noted. IMPRESSION: 1. No acute fracture within the left tibia or fibula. 2. Moderate subcutaneous edema of the left lower leg. ACT 112: Negative or not required by law. Electronically signed by: Kishor Lew M.D. 08/07/2023 6:52 AM
--- NOTE | 2023-08-08 10:43 | Pharmacy Report ---
Pharmacy PK ABX Note - Date of Service August 08, 2023 - Assessment and Plan Assessment 83 year old M receiving empiric ceftriaxone and vancomycin for treatment of left leg cellulitis. Patient sustained hematoma to left leg following a fall at home ~2 weeks ago. Patient had previously been ordered doxycycline, which was changed to vancomycin today due to worsening infection. Patient is afebrile w/ no overt leukocytosis. Day # 1 of vancomycin therapy. Plan Vancomycin * Loading dose: 2250 mg IV x 1 * Maintenance dose: 1000 mg IV every 12 hours * Regimen is predicted to achieve target AUC/HENRY of 400-600 mg/L.hr * Random level ordered for: 08/10/23 Pharmacy will continue to follow and will adjust dose/frequency as necessary. Thank you. Pharmacy has transitioned to AUC monitoring for vancomycin. AUC/HENRY is the preferred PK/PD target and is associated with decreased risk of nephrotoxicity compared to traditional trough targets.
[2023-08-08] MEDS: ASPIRIN 81 MG ECTAB PO SCH (10:55)
[2023-08-08] MEDS: ENOXAPARIN INJ 40 MG/0.4 ML SYR SQ SCH (11:05)
[2023-08-08] MEDS ORDERED: WARFARIN SOD 7.5 MG TAB PO SCH (16:00)
[2023-08-08] MEDS: cefTRIAXone SODIUM 2,000 MG in DEXTROSE 5 % MINI-B 50 ML IV SCH (16:07)
[2023-08-08] MEDS: DOCUSATE SODIUM 100 MG CAP PO PRN (20:09)
[2023-08-08] MEDS: ATORVASTATIN 40 MG TAB PO SCH (20:10)
[2023-08-08] MEDS: PANTOprazole 40 MG TAB PO SCH (20:12)
[2023-08-08] MEDS: BACLOFEN 10 MG TAB PO SCH (20:13)
[2023-08-08] MEDS: MAGNESIUM OXIDE 400 MG TAB PO SCH (20:13)
[2023-08-08 22:41] LABS: Appearance Urine Clear (Clear); Bacteria Urine Automated Negative (Negative); Bilirubin Urine Negative (Negative); Blood Urine 3+ (Negative); Color Urine Yellow; Glucose Urine UA Negative (Negative); Ketones Urine Negative (Negative); Leukocyte Esterase Urine Trace (Negative); Nitrite Urine Negative (Negative); Protein Urine Negative (Negative); RBC Urine Automated >30 /hpf (0-4); Specific Gravity Urine 1.018 (1.000-1.030); Urobilinogen Urine Negative (Negative); pH Urine 5.5 (4.5-7.5)
[2023-08-09] MEDS: oxyCODONE HCL IR 5 MG TAB (IMMEDIATE RELEASE) PO PRN ×2 (00:03→20:46)
[2023-08-09 07:17] LABS: Basophils # (auto) 0.02 K/uL (0.00-0.20); Basophils % (auto) 0.4 %; Eosinophils # (auto) 0.23 K/uL (0.00-0.50); Eosinophils % (auto) 4.9 %; Hematocrit (blood only) 29.8 % (42.0-52.0); Hemoglobin 9.7 g/dl (14.0-18.0); Immature Granulocytes # (auto) 0.03 K/uL (0.01-0.20); Immature Granulocytes % (auto) 0.6 %; Lymphocytes # (auto) 0.88 K/uL (1.20-3.40); Lymphocytes % (auto) 18.7 %; Mean Corpuscular Hgb Conc 32.6 g/dL (32.0-36.0); Mean Corpuscular Volume 92.3 fL (80.0-100.0); Mean Platelet Volume 9.1 fL (9.4-12.4); Monocytes # (auto) 0.42 K/uL (0.11-0.59); Monocytes % (auto) 8.9 %; Neutrophils # (auto) 3.12 K/uL (1.40-6.50); Neutrophils % (auto) 66.5 %; Platelet Count 276 K/uL (130-400); RDW Coefficient of Variation 14.9 % (11.5-14.5); RDW Standard Deviation 50.1 fL (36.4-46.3); Red Blood Count 3.23 M/uL (4.70-6.10)
[2023-08-09 07:35] LABS: BUN Creatinine Ratio 26.3 (10-20); Calcium 8.7 mg/dl (8.6-10.3); Est GFR (African American) 96.4 ml/min; Est GFR (Non-African American) 83.2 ml/min; Potassium 3.7 mmol/L (3.5-5.1)
[2023-08-09] MEDS: ENOXAPARIN INJ 40 MG/0.4 ML SYR SQ SCH (08:17)
[2023-08-09] MEDS: ASPIRIN 81 MG ECTAB PO SCH (08:17)
[2023-08-09] MEDS: DOCUSATE SODIUM 100 MG CAP PO PRN (08:17)
[2023-08-09] MEDS: ACETAMINOPHEN 500 MG TAB PO PRN (08:17)
[2023-08-09] MEDS: EZETIMIBE 10 MG TAB PO SCH (08:18)
[2023-08-09] MEDS: SOTALOL HCL 80 MG TAB PO SCH ×2 (08:18→20:45)
[2023-08-09] MEDS: FUROSEMIDE 20 MG TAB PO SCH (08:18)
[2023-08-09] MEDS: GABAPENTIN 300 MG CAP PO SCH ×2 (08:19→20:45)
[2023-08-09] MEDS: DULoxetine HCL 60 MG CAP PO SCH (08:19)
[2023-08-09] MEDS: TAMSULOSIN HCL 0.4 MG CAP PO SCH ×2 (08:19→20:46)
[2023-08-09] MEDS ORDERED: VANCOMYCIN HCL 1,250 MG in SODIUM CHLORIDE 0.9% 250 ML IV SCH (09:15)
[2023-08-09 11:55] LABS: INR 1.1 (0.9-1.1)
[2023-08-09] MEDS ORDERED: ENOXAPARIN 1 MG/KG SQ SCH (12:45)
--- NOTE | 2023-08-09 12:45 | Hospitalist Progress Note ---
Date of Service August 09, 2023 Assessment & Plan (1) Hematoma of left thigh: (2) Left leg cellulitis: Plan Patient is a 83-year-old male with history of A-fib on sotalol/Coumadin had a mechanical fall on July 22 Noted to have left thigh swelling since then. Presented to the ED on 07/22 and 07/26. Hemoglobin dropped from 13.2-10.2 during that time. Remained stable since Noted to have increasing left lower extremity swelling and redness; return back to ED. Left femur CT personally reviewed; no acute fracture. 5 x 2.9 x 4.8 cm acute intramuscular hematoma within the vastus lateralis. Left tibia and fibula CT shows moderate subcutaneous edema of left lower leg. Hemoglobin remained stable PT/INR down trended after vitamin K which was given in ED ESR elevated to 37, CRP elevated 2.77 Continue on ceftriaxone and vancomycin for cellulitis. Start therapeutic dose Lovenox along with Coumadin Elevate and place ice leg. Monitor CBC daily PT OT. Chronic conditions: hx hx SSS status post PPM on Coumadin hx CAD status post CABG hypertension, slightly elevated upon arrival at the ER HLA B27 spondyloarthropathy, PMR as per records, currently not on steroid Rx mood disorder, stable past tobacco abuse DVT prophylaxis. Lovenox, Coumadin resumed Full code Time spent evaluating patient, direct bedside care, chart review, placing orders, interpretation of diagnostic studies, discussion with consultants, patient, and family members, as well as other required patient management activities is 60 minutes Please note the above document was generated using voice recognition software. It may contain grammatical, syntax or spelling errors. Any formal questions or concerns about the content, text or information contained within the body of this dictation should be directly addressed to the provider for clarification Admission and Anticipated Discharge Date Admission Date: August 07, 2023 Subjective Patient seen and examined at bedside. He reports that the redness has not improved at all. He reports pain on the leg as well. Review of Systems Review of Systems: All systems reviewed & are unremarkable except as noted in Subjective Physical Exam Physical Exam: GENERAL: Comfortable, pleasant, no respiratory distress SKIN: Pallor, warm HEENT: Bespectacled, pale palpebral conjunctivae, no ptosis, dry buccal mucosa NECK : Supple, no tenderness CHEST : CTA, no tenderness HEART : RRR, no obvious murmurs ABDOMEN: Some distention, nontender EXTREMITIES : Tender LLE induration with ecchymotic areas, no other conspicuous deformities noted. Redness, swelling present on left lower extremity NEUROLOGIC : Coherent, no facial asymmetry, gait and stance not assessed Results & Data Results & Data Vital Signs (Past 12 Hours) Vital Signs Temp Pulse Pulse Resp BP Pulse Ox O2 Del Method 08/09/23 11:52 36.5 C 76 18 167/81 H 96 Room Air 08/09/23 05:59 72 08/09/23 08:02 36.3 C L 72 18 156/71 H 94 Room Air 08/09/23 04:00 08/09/23 03:00 36.5 C 68 18 154/72 H 98 Room Air 08/09/23 02:00 68 O2 Del Method 08/09/23 11:52 08/09/23 05:59 08/09/23 08:02 08/09/23 04:00 Room Air 08/09/23 03:00 08/09/23 02:00 Laboratory Results Laboratory Results WBC 4.70 K/ul (4.8-10.8) L 08/09/23 06:32 RBC 3.23 M/uL (4.70-6.10) L 08/09/23 06:32 Hgb 9.7 g/dl (14.0-18.0) L 08/09/23 06:32 Hct 29.8 % (42.0-52.0) L 08/09/23 06:32 MCV 92.3 fL (80.0-100.0) 08/09/23 06:32 MCH 30.0 pg (25.0-34.0) 08/09/23 06:32 MCHC 32.6 g/dL (32.0-36.0) 08/09/23 06:32 RDW Std Deviation 50.1 fL (36.4-46.3) H 08/09/23 06:32 RDW Coeff of Priya 14.9 % (11.5-14.5) H 08/09/23 06:32 Plt Count 276 K/uL (130-400) 08/09/23 06:32 MPV 9.1 fL (9.4-12.4) L 08/09/23 06:32 Immature Gran % (Auto) 0.6 % 08/09/23 06:32 Neut % (Auto) 66.5 % 08/09/23 06:32 Lymph % (Auto) 18.7 % 08/09/23 06:32 [place] % (Auto) 8.9 % 08/09/23 06:32 Eos % (Auto) 4.9 % 08/09/23 06:32 Baso % (Auto) 0.4 % 08/09/23 06:32 Neut # (Auto) 3.12 K/uL (1.40-6.50) 08/09/23 06:32 Lymph # (Auto) 0.88 K/uL (1.20-3.40) L 08/09/23 06:32 [place] # (Auto) 0.42 K/uL (0.11-0.59) 08/09/23 06:32 Eos # (Auto) 0.23 K/uL (0.00-0.50) 08/09/23 06:32 Baso # (Auto) 0.02 K/uL (0.00-0.20) 08/09/23 06:32 Immature Gran # (Auto) 0.03 K/uL (0.01-0.20) 08/09/23 06:32 ESR 37 mm/hr (0-20) H 08/09/23 10:44 PT 12.0 Seconds (9.0-12.0) 08/09/23 10:44 INR 1.1 (0.9-1.1) 08/09/23 10:44 Sodium 136 mmol/L (136-145) 08/09/23 06:32 Potassium 3.7 mmol/L (3.5-5.1) 08/09/23 06:32 Chloride 103 mmol/L (98-107) 08/09/23 06:32 Carbon Dioxide 29 mmol/L (21-32) 08/09/23 06:32 Anion Gap 4 (3-11) 08/09/23 06:32 BUN 21 mg/dl (6-23) 08/09/23 06:32 Creatinine 0.80 mg/dl (0.6-1.4) 08/09/23 06:32 Est Cr Clr Drug Dosing 95.0 ml/min 08/09/23 06:32 Est GFR ( Amer) 96.4 ml/min 08/09/23 06:32 Est GFR (Non-Af Amer) 83.2 ml/min 08/09/23 06:32 BUN/Creatinine Ratio 26.3 (10-20) H 08/09/23 06:32 Glucose 106 mg/dl (70-99(Fasting)) H 08/09/23 06:32 Calcium 8.7 mg/dl (8.6-10.3) 08/09/23 06:32 Magnesium 2.1 mg/dl (1.7-2.4) 08/07/23 00:58 Total Bilirubin 1.1 mg/dl (0.2-1.0) H 08/07/23 00:58 AST 17 U/L (13-39) 08/07/23 00:58 ALT 18 U/L (7-52) 08/07/23 00:58 Alkaline Phosphatase 113 U/L (34-104) H 08/07/23 00:58 Total Creatine Kinase 105 U/L (30-223) 08/07/23 00:58 C-Reactive Protein 2.77 mg/dl (0-0.5) H 08/09/23 10:44 Total Protein 7.3 gm/dl (6.0-8.3) 08/07/23 00:58 Albumin 4.2 gm/dl (3.4-5.0) 08/07/23 00:58 Globulin 3.1 gm/dl (2.5-4.0) 08/07/23 00:58 Albumin/Globulin Ratio 1.4 (0.9-2) 08/07/23 00:58 TSH 1.627 uIu/ml (0.300-4.500) 08/07/23 00:58 Urine Color Yellow 08/08/23 21:55 Urine Appearance Clear (Clear) 08/08/23 21:55 Urine pH 5.5 (4.5-7.5) 08/08/23 21:55 Ur Specific [place] 1.018 (1.000-1.030) 08/08/23 21:55 Urine Protein Negative (Negative) 08/08/23 21:55 Urine Glucose (UA) Negative (Negative) 08/08/23 21:55 Urine Ketones Negative (Negative) 08/08/23 21:55 Urine Blood 3+ (Negative) H 08/08/23 21:55 Urine Nitrite Negative (Negative) 08/08/23 21:55 Urine Bilirubin Negative (Negative) 08/08/23 21:55 Urine Urobilinogen Negative (Negative) 08/08/23 21:55 Ur Leukocyte Esterase Trace (Negative) H 08/08/23 21:55 Urine WBC (Auto) 1-5 /hpf (0-5) 08/08/23 21:55 Urine RBC (Auto) >30 /hpf (0-4) H 08/08/23 21:55 U Hyaline Cast (Auto) 1-5 /lpf (0-5) 08/08/23 21:55 U Epithel Cells (Auto) 10-20 /lpf (0-5) H 08/08/23 21:55 Urine Bacteria (Auto) Negative (Negative) 08/08/23 21:55 Blood Type A Positive 08/07/23 04:49 Antibody Screen NEGATIVE 08/07/23 04:49 Impressions Venous Doppler Study 08/06/23 21:24 Exam(s): US VENOUS LEFT LOWER EXTREMITY EXAM: US Duplex Left Lower Extremity Veins CLINICAL HISTORY: Reason for exam: Leg deep vein thrombosis (DVT) suspected. TECHNIQUE: Real-time duplex ultrasound scan of the left lower extremity veins integrating B-mode two-dimensional vascular structure, Doppler spectral analysis, color flow Doppler imaging and compression. COMPARISON: 07/26/2023. FINDINGS: Deep veins: Unremarkable. No DVT in the visualized common femoral, femoral, proximal deep femoral or popliteal veins. The veins demonstrate normal color flow, are normally compressible, with normal phasic flow and/or augmentation response. Superficial veins: Unremarkable. No thrombus in the visualized great saphenous vein. Soft tissues: No acute findings. No popliteal cyst. IMPRESSION: No ultrasonographic evidence of deep venous thrombosis involving the left lower extremity. Electronically signed by: Susan Flannery MD 08/07/23 00:10 AM Ankle X-Ray 08/07/23 00:15 XR knee LT 1 or 2V routine, XR tibia fibula LT 2V, XR ankle LT min 3V routine, XR foot LT min 3V routine CLINICAL HISTORY: fall. Left lower extremity pain. COMPARISON STUDY: None. FINDINGS: Soft tissue swelling within the visualized left lower extremity. Mild vascular calcifications are noted. Surgical clips are seen within the proximal left lower leg. Mild degenerative changes within the left knee and left foot. No acute fracture or dislocation within the left knee, left tibia, left fibula, left ankle, or left foot. Trace left knee effusion. The ankle mortise and Lisfranc joint appears intact. Plantar and posterior calcaneal spurs are noted. Small well-corticated ossific densities adjacent to the medial and lateral malleoli consistent with old avulsion type injuries. IMPRESSION: Diffuse soft tissue swelling within the left lower extremity. No acute fractures within the left knee, left lower leg, left ankle, or left foot. ACT 112: Negative or not required by law. Electronically signed by: Mac Sherman M.D. 08/07/2023 7:07 AM Foot X-Ray 08/07/23 00:15 XR knee LT 1 or 2V routine, XR tibia fibula LT 2V, XR ankle LT min 3V routine, XR foot LT min 3V routine CLINICAL HISTORY: fall. Left lower extremity pain. COMPARISON STUDY: None. FINDINGS: Soft tissue swelling within the visualized left lower extremity. Mild vascular calcifications are noted. Surgical clips are seen within the proximal left lower leg. Mild degenerative changes within the left knee and left foot. No acute fracture or dislocation within the left knee, left tibia, left fibula, left ankle, or left foot. Trace left knee effusion. The ankle mortise and Lisfranc joint appears intact. Plantar and posterior calcaneal spurs are noted. Small well-corticated ossific densities adjacent to the medial and lateral malleoli consistent with old avulsion type injuries. IMPRESSION: Diffuse soft tissue swelling within the left lower extremity. No acute fractures within the left knee, left lower leg, left ankle, or left foot. ACT 112: Negative or not required by law. Electronically signed by: Mac Sherman M.D. 08/07/2023 7:07 AM Knee X-Ray 08/07/23 00:15 XR knee LT 1 or 2V routine, XR tibia fibula LT 2V, XR ankle LT min 3V routine, XR foot LT min 3V routine CLINICAL HISTORY: fall. Left lower extremity pain. COMPARISON STUDY: None. FINDINGS: Soft tissue swelling within the visualized left lower extremity. Mild vascular calcifications are noted. Surgical clips are seen within the proximal left lower leg. Mild degenerative changes within the left knee and left foot. No acute fracture or dislocation within the left knee, left tibia, left fibula, left ankle, or left foot. Trace left knee effusion. The ankle mortise and Lisfranc joint appears intact. Plantar and posterior calcaneal spurs are noted. Small well-corticated ossific densities adjacent to the medial and lateral malleoli consistent with old avulsion type injuries. IMPRESSION: Diffuse soft tissue swelling within the left lower extremity. No acute fractures within the left knee, left lower leg, left ankle, or left foot. ACT 112: Negative or not required by law. Electronically signed by: Mac Sherman M.D. 08/07/2023 7:07 AM Tibia/Fibula X-Ray 08/07/23 00:15 XR knee LT 1 or 2V routine, XR tibia fibula LT 2V, XR ankle LT min 3V routine, XR foot LT min 3V routine CLINICAL HISTORY: fall. Left lower extremity pain. COMPARISON STUDY: None. FINDINGS: Soft tissue swelling within the visualized left lower extremity. Mild vascular calcifications are noted. Surgical clips are seen within the proximal left lower leg. Mild degenerative changes within the left knee and left foot. No acute fracture or dislocation within the left knee, left tibia, left fibula, left ankle, or left foot. Trace left knee effusion. The ankle mortise and Lisfranc joint appears intact. Plantar and posterior calcaneal spurs are noted. Small well-corticated ossific densities adjacent to the medial and lateral malleoli consistent with old avulsion type injuries. IMPRESSION: Diffuse soft tissue swelling within the left lower extremity. No acute fractures within the left knee, left lower leg, left ankle, or left foot. ACT 112: Negative or not required by law. Electronically signed by: Mac Sherman M.D. 08/07/2023 7:07 AM Chest X-Ray 08/07/23 02:58 XR chest 1V portable HISTORY: leg swelling COMPARISON: Chest and left rib series 01/14/2023. FINDINGS: No pneumothorax. No pleural effusions. A few bibasilar linear densities favor subsegmental atelectasis or scarring. Otherwise, no focal lung consolidations to suggest a pneumonia. No evidence for pulmonary edema. Slightly rotated study. Left-sided dual-chamber pacemaker and poststernotomy changes are noted. The heart remains borderline enlarged. There are degenerative changes within the left shoulder. IMPRESSION: No acute process. ACT 112: Negative or not required by law. Electronically signed by: Mac Sherman M.D. 08/07/2023 7:[address] 08/07/23 03:57 CT femur LT wo con CLINICAL HISTORY: Fall. Swelling. COMPARISON STUDY: Left knee radiographs performed earlier today. TECHNIQUE: Axial images of the left femur and thyroid cancer without IV contrast. Sagittal and coronal reconstructions were viewed. Automated exposure control was utilized for the study. A dose lowering technique was utilized adhering to the principles of ALARA. FINDINGS: There is no acute fracture within the left femur. No osseous lesions are identified. Alignment of the left hip and left knee is anatomic. There is moderate left hip osteoarthritis. There is moderate osteoarthritis within the medial compartment of the left knee. Moderate subcutaneous edema of the left thigh is noted. Note is made of an acute intramuscular hematoma within the vastus lateralis at the level of the midshaft of the left femur which measures 5 x 2.9 x 4.8 cm. There is adjacent edema. No additional hematomas are identified. IMPRESSION: 1. No acute fracture within the left femur. 2. 5 x 2.9 x 4.8 cm acute intramuscular hematoma within the vastus lateralis. 3. Moderate subcutaneous edema of the left thigh. ACT 112: Negative or not required by law. Electronically signed by: Kishor Lew M.D. 08/07/2023 6:[address] 08/07/23 03:[address] DOSE: HISTORY: Fall. Left foot swelling TECHNIQUE: Multiaxial CT images of the left foot were performed and reformatted in the sagittal and coronal plane without the use of contrast. A dose lowering technique was utilized adhering to the principles of ALARA. COMPARISON: Left foot radiograph 08/07/2023. FINDINGS: No acute fracture or dislocation within the left foot. The Lisfranc joint appears intact. Mild degenerative changes are noted. Small well-corticated ossific densities adjacent to the medial and lateral malleoli which favor old avulsion type injuries. There are plantar and posterior calcaneal spurs noted. Subcutaneous edema seen throughout the left foot. IMPRESSION: No acute fracture or dislocation within the left foot. ACT 112: Negative or not required by law. Electronically signed by: Mac Sherman M.D. 08/07/2023 6:[address] 08/07/23 03:57 CT tib/fib LT wo con CLINICAL HISTORY: swelling COMPARISON STUDY: Left tibia and fibula radiographs performed earlier today. TECHNIQUE: Axial images of the left tibia and fibula and lower leg were obtained without IV contrast. Sagittal and coronal reconstructions were viewed. Automated exposure control was utilized for the study. A dose lowering technique was utilized adhering to the principles of ALARA. FINDINGS: There is no acute fracture within the left tibia or fibula. No osseous lesions are identified. Talar dome is intact. There is moderate medial compartment osteoarthritis of the left knee. Well-corticated ossicles along the fibular tip and medial malleolus are chronic. Moderate subcutaneous edema of the left lower leg is noted. No hematoma/fluid collection within the left lower leg is noted. IMPRESSION: 1. No acute fracture within the left tibia or fibula. 2. Moderate subcutaneous edema of the left lower leg. ACT 112: Negative or not required by law. Electronically signed by: Kishor Lew M.D. 08/07/2023 6:52 AM
[2023-08-09] MEDS ORDERED: ENOXAPARIN INJ 120 MG/0.8 ML SYR SQ SCH (13:30)
[2023-08-09] MEDS: WARFARIN SOD 5 MG TAB PO SCH (16:10)
[2023-08-09] MEDS: cefTRIAXone SODIUM 2,000 MG in DEXTROSE 5 % MINI-B 50 ML IV SCH (16:12)
[2023-08-09] MEDS: VANCOMYCIN HCL 1,250 MG in SODIUM CHLORIDE 0.9% 250 ML IV SCH (18:32)
[2023-08-09] MEDS: ATORVASTATIN 40 MG TAB PO SCH (20:44)
[2023-08-09] MEDS: PANTOprazole 40 MG TAB PO SCH (20:45)
[2023-08-09] MEDS: MAGNESIUM OXIDE 400 MG TAB PO SCH (20:46)
[2023-08-09] MEDS: ENOXAPARIN INJ 120 MG/0.8 ML SYR SQ SCH (20:47)
[2023-08-09] MEDS: BACLOFEN 10 MG TAB PO SCH (21:00)
[2023-08-10] MEDS ORDERED: VANCOMYCIN LEVEL ONE (05:30)
[2023-08-10] MEDS: VANCOMYCIN HCL 1,250 MG in SODIUM CHLORIDE 0.9% 250 ML IV SCH (06:47)
[2023-08-10 06:54] LABS: Basophils # (auto) 0.01 K/uL (0.00-0.20); Basophils % (auto) 0.2 %; Eosinophils # (auto) 0.21 K/uL (0.00-0.50); Eosinophils % (auto) 4.6 %; Hematocrit (blood only) 30.1 % (42.0-52.0); Hemoglobin 9.8 g/dl (14.0-18.0); Immature Granulocytes # (auto) 0.01 K/uL (0.01-0.20); Immature Granulocytes % (auto) 0.2 %; Lymphocytes # (auto) 0.77 K/uL (1.20-3.40); Lymphocytes % (auto) 16.9 %; Mean Corpuscular Hemoglobin 29.6 pg (25.0-34.0); Mean Corpuscular Hgb Conc 32.6 g/dL (32.0-36.0); Mean Corpuscular Volume 90.9 fL (80.0-100.0); Mean Platelet Volume 9.1 fL (9.4-12.4); Monocytes # (auto) 0.46 K/uL (0.11-0.59); Monocytes % (auto) 10.1 %; Platelet Count 278 K/uL (130-400); RDW Coefficient of Variation 14.8 % (11.5-14.5); RDW Standard Deviation 49.5 fL (36.4-46.3); Red Blood Count 3.31 M/uL (4.70-6.10); White Blood Count 4.56 K/ul (4.8-10.8)
[2023-08-10 07:04] LABS: BUN Creatinine Ratio 23.2 (10-20); Calcium 8.8 mg/dl (8.6-10.3); Creatinine Clr Calc Pharmacy 92.6 ml/min; Est GFR (African American) 95.4 ml/min; Est GFR (Non-African American) 82.4 ml/min; Potassium 3.8 mmol/L (3.5-5.1)
[2023-08-10 08:09] LABS: INR 1.2 (0.9-1.1); Prothrombin Time 12.7 Seconds (9.0-12.0)
[2023-08-10] MEDS: ENOXAPARIN INJ 120 MG/0.8 ML SYR SQ SCH ×2 (08:31→21:32)
[2023-08-10] MEDS: DULoxetine HCL 60 MG CAP PO SCH (08:32)
[2023-08-10] MEDS: ASPIRIN 81 MG ECTAB PO SCH (08:32)
[2023-08-10] MEDS: FUROSEMIDE 20 MG TAB PO SCH (08:32)
[2023-08-10] MEDS: GABAPENTIN 300 MG CAP PO SCH ×2 (08:32→21:31)
[2023-08-10] MEDS: EZETIMIBE 10 MG TAB PO SCH (08:32)
[2023-08-10] MEDS: SOTALOL HCL 80 MG TAB PO SCH ×2 (08:32→21:30)
[2023-08-10] MEDS: TAMSULOSIN HCL 0.4 MG CAP PO SCH ×2 (08:32→21:31)
--- NOTE | 2023-08-10 12:39 | Hospitalist Progress Note ---
Date of Service August 10, 2023 Assessment & Plan (1) Hematoma of left thigh: (2) Left leg cellulitis: Plan Patient is a 83-year-old male with history of A-fib on sotalol/Coumadin had a mechanical fall on July 22 Noted to have left thigh swelling since then. Presented to the ED on 07/22 and 07/26. Hemoglobin dropped from 13.2-10.2 during that time. Remained stable since Noted to have increasing left lower extremity swelling and redness; return back to ED. Left femur CT personally reviewed; no acute fracture. 5 x 2.9 x 4.8 cm acute intramuscular hematoma within the vastus lateralis. Left tibia and fibula CT shows moderate subcutaneous edema of left lower leg. Hemoglobin remained stable PT/INR down trended after vitamin K which was given in ED ESR elevated to 37, CRP elevated 2.77 Continue on ceftriaxone and vancomycin for cellulitis. Continue on therapeutic dose Lovenox along with Coumadin. INR slightly improving. Elevate and place ice leg. Monitor CBC daily PT OT. Chronic conditions: hx hx SSS status post PPM on Coumadin hx CAD status post CABG hypertension, slightly elevated upon arrival at the ER HLA B27 spondyloarthropathy, PMR as per records, currently not on steroid Rx mood disorder, stable past tobacco abuse DVT prophylaxis. Lovenox, Coumadin resumed Full code Dispopatient continues to be hospitalized due to need for IV antibiotic for severe cellulitis in his left lower extremity. Time spent evaluating patient, direct bedside care, chart review, placing orders, interpretation of diagnostic studies, discussion with consultants, patient, and family members, as well as other required patient management activi ties is 60 minutes Please note the above document was generated using voice recognition software. It may contain grammatical, syntax or spelling errors. Any formal questions or concerns about the content, text or information contained within the body of this dictation should be directly addressed to the provider for clarification Admission and Anticipated Discharge Date Admission Date: August 07, 2023 Subjective Patient reports improvement in the cellulitis. He reports that he has been walking and elevating his leg; also placing ice on the foot. Review of Systems Review of Systems: All systems reviewed & are unremarkable except as noted in Subjective Physical Exam Physical Exam: GENERAL: Comfortable, pleasant, no respiratory distress SKIN: Pallor, warm HEENT: Bespectacled, pale palpebral conjunctivae, no ptosis, dry buccal mucosa NECK : Supple, no tenderness CHEST : CTA, no tenderness HEART : RRR, no obvious murmurs ABDOMEN: Some distention, nontender EXTREMITIES : Tender LLE induration with ecchymotic areas, no other conspicuous deformities noted. Redness, swelling present on left lower extremity NEUROLOGIC : Coherent, no facial asymmetry, gait and stance not assessed Results & Data Results & Data Vital Signs (Past 12 Hours) Vital Signs Temp Pulse Pulse Resp BP Pulse Ox O2 Del Method 08/10/23 11:57 36.8 C 67 16 146/77 H 95 Room Air 08/10/23 07:12 Room Air 08/10/23 08:09 36.8 C 75 16 152/77 H 94 Room Air 08/10/23 06:01 72 08/10/23 03:00 37 C 75 18 150/70 H 94 Room Air Laboratory Results Laboratory Results WBC 4.56 K/ul (4.8-10.8) L 08/10/23 06:19 RBC 3.31 M/uL (4.70-6.10) L 08/10/23 06:19 Hgb 9.8 g/dl (14.0-18.0) L 08/10/23 06:19 Hct 30.1 % (42.0-52.0) L 08/10/23 06:19 MCV 90.9 fL (80.0-100.0) 08/10/23 06:19 MCH 29.6 pg (25.0-34.0) 08/10/23 06:19 MCHC 32.6 g/dL (32.0-36.0) 08/10/23 06:19 RDW Std Deviation 49.5 fL (36.4-46.3) H 08/10/23 06:19 RDW Coeff of Priya 14.8 % (11.5-14.5) H 08/10/23 06:19 Plt Count 278 K/uL (130-400) 08/10/23 06:19 MPV 9.1 fL (9.4-12.4) L 08/10/23 06:19 Immature Gran % (Auto) 0.2 % 08/10/23 06:19 Neut % (Auto) 68.0 % 08/10/23 06:19 Lymph % (Auto) 16.9 % 08/10/23 06:19 Gaines % (Auto) 10.1 % 08/10/23 06:19 Eos % (Auto) 4.6 % 08/10/23 06:19 Baso % (Auto) 0.2 % 08/10/23 06:19 Neut # (Auto) 3.10 K/uL (1.40-6.50) 08/10/23 06:19 Lymph # (Auto) 0.77 K/uL (1.20-3.40) L 08/10/23 06:19 Gaines # (Auto) 0.46 K/uL (0.11-0.59) 08/10/23 06:19 Eos # (Auto) 0.21 K/uL (0.00-0.50) 08/10/23 06:19 Baso # (Auto) 0.01 K/uL (0.00-0.20) 08/10/23 06:19 Immature Gran # (Auto) 0.01 K/uL (0.01-0.20) 08/10/23 06:19 ESR 37 mm/hr (0-20) H 08/09/23 10:44 PT 12.7 Seconds (9.0-12.0) H 08/10/23 06:19 INR 1.2 (0.9-1.1) H 08/10/23 06:19 Sodium 137 mmol/L (136-145) 08/10/23 06:19 Potassium 3.8 mmol/L (3.5-5.1) 08/10/23 06:19 Chloride 104 mmol/L (98-107) 08/10/23 06:19 Carbon Dioxide 29 mmol/L (21-32) 08/10/23 06:19 Anion Gap 4 (3-11) 08/10/23 06:19 BUN 19 mg/dl (6-23) 08/10/23 06:19 Creatinine 0.82 mg/dl (0.6-1.4) 08/10/23 06:19 Est Cr Clr Drug Dosing 92.6 ml/min 08/10/23 06:19 Est GFR ( Amer) 95.4 ml/min 08/10/23 06:19 Est GFR (Non-Af Amer) 82.4 ml/min 08/10/23 06:19 BUN/Creatinine Ratio 23.2 (10-20) H 08/10/23 06:19 Glucose 112 mg/dl (70-99(Fasting)) H 08/10/23 06:19 Calcium 8.8 mg/dl (8.6-10.3) 08/10/23 06:19 Magnesium 2.1 mg/dl (1.7-2.4) 08/07/23 00:58 Total Bilirubin 1.1 mg/dl (0.2-1.0) H 08/07/23 00:58 AST 17 U/L (13-39) 08/07/23 00:58 ALT 18 U/L (7-52) 08/07/23 00:58 Alkaline Phosphatase 113 U/L (34-104) H 08/07/23 00:58 Total Creatine Kinase 105 U/L (30-223) 08/07/23 00:58 C-Reactive Protein 2.77 mg/dl (0-0.5) H 08/09/23 10:44 Total Protein 7.3 gm/dl (6.0-8.3) 08/07/23 00:58 Albumin 4.2 gm/dl (3.4-5.0) 08/07/23 00:58 Globulin 3.1 gm/dl (2.5-4.0) 08/07/23 00:58 Albumin/Globulin Ratio 1.4 (0.9-2) 08/07/23 00:58 TSH 1.627 uIu/ml (0.300-4.500) 08/07/23 00:58 Urine Color Yellow 08/08/23 21:55 Urine Appearance Clear (Clear) 08/08/23 21:55 Urine pH 5.5 (4.5-7.5) 08/08/23 21:55 Ur Specific Beaver 1.018 (1.000-1.030) 08/08/23 21:55 Urine Protein Negative (Negative) 08/08/23 21:55 Urine Glucose (UA) Negative (Negative) 08/08/23 21:55 Urine Ketones Negative (Negative) 08/08/23 21:55 Urine Blood 3+ (Negative) H 08/08/23 21:55 Urine Nitrite Negative (Negative) 08/08/23 21:55 Urine Bilirubin Negative (Negative) 08/08/23 21:55 Urine Urobilinogen Negative (Negative) 08/08/23 21:55 Ur Leukocyte Esterase Trace (Negative) H 08/08/23 21:55 Urine WBC (Auto) 1-5 /hpf (0-5) 08/08/23 21:55 Urine RBC (Auto) >30 /hpf (0-4) H 08/08/23 21:55 U Hyaline Cast (Auto) 1-5 /lpf (0-5) 08/08/23 21:55 U Epithel Cells (Auto) 10-20 /lpf (0-5) H 08/08/23 21:55 Urine Bacteria (Auto) Negative (Negative) 08/08/23 21:55 Blood Type A Positive 08/07/23 04:49 Antibody Screen NEGATIVE 08/07/23 04:49 Impressions Venous Doppler Study 08/06/23 21:24 Exam(s): US VENOUS LEFT LOWER EXTREMITY EXAM: US Duplex Left Lower Extremity Veins CLINICAL HISTORY: Reason for exam: Leg deep vein thrombosis (DVT) suspected. TECHNIQUE: Real-time duplex ultrasound scan of the left lower extremity veins integrating B-mode two-dimensional vascular structure, Doppler spectral analysis, color flow Doppler imaging and compression. COMPARISON: 07/26/2023. FINDINGS: Deep veins: Unremarkable. No DVT in the visualized common femoral, femoral, proximal deep femoral or popliteal veins. The veins demonstrate normal color flow, are normally compressible, with normal phasic flow and/or augmentation response. Superficial veins: Unremarkable. No thrombus in the visualized great saphenous vein. Soft tissues: No acute findings. No popliteal cyst. IMPRESSION: No ultrasonographic evidence of deep venous thrombosis involving the left lower extremity. Electronically signed by: Susan Flannery MD 08/07/23 00:10 AM Ankle X-Ray 08/07/23 00:15 XR knee LT 1 or 2V routine, XR tibia fibula LT 2V, XR ankle LT min 3V routine, XR foot LT min 3V routine CLINICAL HISTORY: fall. Left lower extremity pain. COMPARISON STUDY: None. FINDINGS: Soft tissue swelling within the visualized left lower extremity. Mild vascular calcifications are noted. Surgical clips are seen within the proximal left lower leg. Mild degenerative changes within the left knee and left foot. No acute fracture or dislocation within the left knee, left tibia, left fibula, left ankle, or left foot. Trace left knee effusion. The ankle mortise and Lisfranc joint appears intact. Plantar and posterior calcaneal spurs are noted. Small well-corticated ossific densities adjacent to the medial and lateral malleoli consistent with old avulsion type injuries. IMPRESSION: Diffuse soft tissue swelling within the left lower extremity. No acute fractures within the left knee, left lower leg, left ankle, or left foot. ACT 112: Negative or not required by law. Electronically signed by: Mac Sherman M.D. 08/07/2023 7:07 AM Foot X-Ray 08/07/23 00:15 XR knee LT 1 or 2V routine, XR tibia fibula LT 2V, XR ankle LT min 3V routine, XR foot LT min 3V routine CLINICAL HISTORY: fall. Left lower extremity pain. COMPARISON STUDY: None. FINDINGS: Soft tissue swelling within the visualized left lower extremity. Mild vascular calcifications are noted. Surgical clips are seen within the proximal left lower leg. Mild degenerative changes within the left knee and left foot. No acute fracture or dislocation within the left knee, left tibia, left fibula, left ankle, or left foot. Trace left knee effusion. The ankle mortise and Lisfranc joint appears intact. Plantar and posterior calcaneal spurs are noted. Small well-corticated ossific densities adjacent to the medial and lateral malleoli consistent with old avulsion type injuries. IMPRESSION: Diffuse soft tissue swelling within the left lower extremity. No acute fractures within the left knee, left lower leg, left ankle, or left foot. ACT 112: Negative or not required by law. Electronically signed by: Mac Sherman M.D. 08/07/2023 7:07 AM Knee X-Ray 08/07/23 00:15 XR knee LT 1 or 2V routine, XR tibia fibula LT 2V, XR ankle LT min 3V routine, XR foot LT min 3V routine CLINICAL HISTORY: fall. Left lower extremity pain. COMPARISON STUDY: None. FINDINGS: Soft tissue swelling within the visualized left lower extremity. Mild vascular calcifications are noted. Surgical clips are seen within the proximal left lower leg. Mild degenerative changes within the left knee and left foot. No acute fracture or dislocation within the left knee, left tibia, left fibula, left ankle, or left foot. Trace left knee effusion. The ankle mortise and Lisfranc joint appears intact. Plantar and posterior calcaneal spurs are noted. Small well-corticated ossific densities adjacent to the medial and lateral malleoli consistent with old avulsion type injuries. IMPRESSION: Diffuse soft tissue swelling within the left lower extremity. No acute fractures within the left knee, left lower leg, left ankle, or left foot. ACT 112: Negative or not required by law. Electronically signed by: Mac Sherman M.D. 08/07/2023 7:07 AM Tibia/Fibula X-Ray 08/07/23 00:15 XR knee LT 1 or 2V routine, XR tibia fibula LT 2V, XR ankle LT min 3V routine, XR foot LT min 3V routine CLINICAL HISTORY: fall. Left lower extremity pain. COMPARISON STUDY: None. FINDINGS: Soft tissue swelling within the visualized left lower extremity. Mild vascular calcifications are noted. Surgical clips are seen within the proximal left lower leg. Mild degenerative changes within the left knee and left foot. No acute fracture or dislocation within the left knee, left tibia, left fibula, left ankle, or left foot. Trace left knee effusion. The ankle mortise and Lisfranc joint appears intact. Plantar and posterior calcaneal spurs are noted. Small well-corticated ossific densities adjacent to the medial and lateral malleoli consistent with old avulsion type injuries. IMPRESSION: Diffuse soft tissue swelling within the left lower extremity. No acute fractures within the left knee, left lower leg, left ankle, or left foot. ACT 112: Negative or not required by law. Electronically signed by: Mac Sherman M.D. 08/07/2023 7:07 AM Chest X-Ray 08/07/23 02:58 XR chest 1V portable HISTORY: leg swelling COMPARISON: Chest and left rib series 01/14/2023. FINDINGS: No pneumothorax. No pleural effusions. A few bibasilar linear densities favor subsegmental atelectasis or scarring. Otherwise, no focal lung consolidations to suggest a pneumonia. No evidence for pulmonary edema. Slightly rotated study. Left-sided dual-chamber pacemaker and poststernotomy changes are noted. The heart remains borderline enlarged. There are degenerative changes within the left shoulder. IMPRESSION: No acute process. ACT 112: Negative or not required by law. Electronically signed by: Mac Sherman M.D. 08/07/2023 7:[address] 08/07/23 03:57 CT femur LT wo con CLINICAL HISTORY: Fall. Swelling. COMPARISON STUDY: Left knee radiographs performed earlier today. TECHNIQUE: Axial images of the left femur and thyroid cancer without IV contrast. Sagittal and coronal reconstructions were viewed. Automated exposure control was utilized for the study. A dose lowering technique was utilized adhering to the principles of ALARA. FINDINGS: There is no acute fracture within the left femur. No osseous lesions are identified. Alignment of the left hip and left knee is anatomic. There is moderate left hip osteoarthritis. There is moderate osteoarthritis within the medial compartment of the left knee. Moderate subcutaneous edema of the left thigh is noted. Note is made of an acute intramuscular hematoma within the vastus lateralis at the level of the midshaft of the left femur which measures 5 x 2.9 x 4.8 cm. There is adjacent edema. No additional hematomas are identified. IMPRESSION: 1. No acute fracture within the left femur. 2. 5 x 2.9 x 4.8 cm acute intramuscular hematoma within the vastus lateralis. 3. Moderate subcutaneous edema of the left thigh. ACT 112: Negative or not required by law. Electronically signed by: Kishor Lew M.D. 08/07/2023 6:[address] 08/07/23 03:[address] DOSE: HISTORY: Fall. Left foot swelling TECHNIQUE: Multiaxial CT images of the left foot were performed and reformatted in the sagittal and coronal plane without the use of contrast. A dose lowering technique was utilized adhering to the principles of ALARA. COMPARISON: Left foot radiograph 08/07/2023. FINDINGS: No acute fracture or dislocation within the left foot. The Lisfranc joint appears intact. Mild degenerative changes are noted. Small well-corticated ossific densities adjacent to the medial and lateral malleoli which favor old avulsion type injuries. There are plantar and posterior calcaneal spurs noted. Subcutaneous edema seen throughout the left foot. IMPRESSION: No acute fracture or dislocation within the left foot. ACT 112: Negative or not required by law. Electronically signed by: Mac Sherman M.D. 08/07/2023 6:[address] 08/07/23 03:57 CT tib/fib LT wo con CLINICAL HISTORY: swelling COMPARISON STUDY: Left tibia and fibula radiographs performed earlier today. TECHNIQUE: Axial images of the left tibia and fibula and lower leg were obtained without IV contrast. Sagittal and coronal reconstructions were viewed. Automated exposure control was utilized for the study. A dose lowering technique was utilized adhering to the principles of ALARA. FINDINGS: There is no acute fracture within the left tibia or fibula. No osseous lesions are identified. Talar dome is intact. There is moderate medial nahid rtment osteoarthritis of the left knee. Well-corticated ossicles along the fibular tip and medial malleolus are chronic. Moderate subcutaneous edema of the left lower leg is noted. No hematoma/fluid collection within the left lower leg is noted. IMPRESSION: 1. No acute fracture within the left tibia or fibula. 2. Moderate subcutaneous edema of the left lower leg. ACT 112: Negative or not required by law. Electronically signed by: Kishor Lew M.D. 08/07/2023 6:52 AM
[2023-08-10] MEDS: cefTRIAXone SODIUM 2,000 MG in DEXTROSE 5 % MINI-B 50 ML IV SCH (16:01)
[2023-08-10] MEDS: WARFARIN SOD 5 MG TAB PO SCH (16:02)
--- NOTE | 2023-08-10 16:09 | Pharmacy Report ---
Pharmacy PK ABX Note - Date of Service August 10, 2023 - Assessment and Plan Assessment 08/10: * Random level 13.1, this is lower than predicted but may still predict therapeutic AUC/HENRY. SCr is stable. Will adjust dose to target higher end of goal range to ensure therapeutic levels. 08/09 83 year old M receiving empiric ceftriaxone and vancomycin for treatment of left leg cellulitis. Patient sustained hematoma to left leg following a fall at home ~2 weeks ago. Patient had previously been ordered doxycycline, which was changed to vancomycin today due to worsening infection. Patient is afebrile w/ no overt leukocytosis. Day # 1 of vancomycin therapy. Plan Vancomycin * Loading dose: 2250 mg IV x 1 * Adjust maintenance dose to 1500 mg q12H * Regimen is predicted to achieve target AUC/HENRY of 400-600 mg/L.hr * Random level ordered for: 08/12 @ 0444 Pharmacy will continue to follow and will adjust dose/frequency as necessary. Thank you. Pharmacy has transitioned to AUC monitoring for vancomycin. AUC/HENRY is the preferred PK/PD target and is associated with decreased risk of nephrotoxicity compared to traditional trough targets.
[2023-08-10] MEDS: VANCOMYCIN HCL 1,500 MG in SODIUM CHLORIDE 0.9% 500 ML IV SCH (18:45)
[2023-08-10] MEDS: PANTOprazole 40 MG TAB PO SCH (21:31)
[2023-08-10] MEDS: ATORVASTATIN 40 MG TAB PO SCH (21:31)
[2023-08-10] MEDS: MAGNESIUM OXIDE 400 MG TAB PO SCH (21:32)
[2023-08-10] MEDS: BACLOFEN 10 MG TAB PO SCH (21:40)
[2023-08-10] MEDS: oxyCODONE HCL IR 5 MG TAB (IMMEDIATE RELEASE) PO PRN (21:40)
[2023-08-11] MEDS: VANCOMYCIN HCL 1,500 MG in SODIUM CHLORIDE 0.9% 500 ML IV SCH ×2 (05:29→19:35)
[2023-08-11 06:39] LABS: Basophils # (auto) 0.02 K/uL (0.00-0.20); Basophils % (auto) 0.5 %; Eosinophils # (auto) 0.24 K/uL (0.00-0.50); Eosinophils % (auto) 6.5 %; Hemoglobin 10.7 g/dl (14.0-18.0); Immature Granulocytes # (auto) 0.01 K/uL (0.01-0.20); Immature Granulocytes % (auto) 0.3 %; Lymphocytes # (auto) 0.78 K/uL (1.20-3.40); Mean Corpuscular Hemoglobin 29.3 pg (25.0-34.0); Mean Corpuscular Hgb Conc 32.4 g/dL (32.0-36.0); Mean Corpuscular Volume 90.4 fL (80.0-100.0); Mean Platelet Volume 9.1 fL (9.4-12.4); Monocytes # (auto) 0.32 K/uL (0.11-0.59); Monocytes % (auto) 8.6 %; Neutrophils # (auto) 2.35 K/uL (1.40-6.50); Neutrophils % (auto) 63.1 %; Platelet Count 297 K/uL (130-400); RDW Coefficient of Variation 14.5 % (11.5-14.5); RDW Standard Deviation 48.5 fL (36.4-46.3); Red Blood Count 3.65 M/uL (4.70-6.10); White Blood Count 3.72 K/ul (4.8-10.8)
[2023-08-11 07:06] LABS: BUN Creatinine Ratio 23.3 (10-20); Calcium 8.7 mg/dl (8.6-10.3); Creatinine Clr Calc Pharmacy 104.1 ml/min; Est GFR (African American) 100.1 ml/min; Est GFR (Non-African American) 86.4 ml/min
[2023-08-11 07:24] LABS: INR 1.2 (0.9-1.1); Prothrombin Time 12.9 Seconds (9.0-12.0)
[2023-08-11] MEDS: SOTALOL HCL 80 MG TAB PO SCH ×2 (10:02→21:32)
[2023-08-11] MEDS: DULoxetine HCL 60 MG CAP PO SCH (10:02)
[2023-08-11] MEDS: ENOXAPARIN INJ 120 MG/0.8 ML SYR SQ SCH (10:03)
[2023-08-11] MEDS: TAMSULOSIN HCL 0.4 MG CAP PO SCH ×2 (10:04→21:32)
[2023-08-11] MEDS: GABAPENTIN 300 MG CAP PO SCH ×2 (10:04→21:32)
[2023-08-11] MEDS: ASPIRIN 81 MG ECTAB PO SCH (10:04)
[2023-08-11] MEDS: EZETIMIBE 10 MG TAB PO SCH (10:04)
--- NOTE | 2023-08-11 11:01 | Hospitalist Progress Note ---
Date of Service August 11, 2023 Assessment & Plan (1) Hematoma of left thigh: (2) Left leg cellulitis: Plan Patient is a 83-year-old male with history of A-fib on sotalol/Coumadin had a mechanical fall on July 22 Noted to have left thigh swelling since then. Presented to the ED on 07/22 and 07/26. Hemoglobin dropped from 13.2-10.2 during that time. Remained stable since Noted to have increasing left lower extremity swelling and redness; return back to ED. Left femur CT personally reviewed; no acute fracture. 5 x 2.9 x 4.8 cm acute intramuscular hematoma within the vastus lateralis. Left tibia and fibula CT shows moderate subcutaneous edema of left lower leg. Hemoglobin remained stable PT/INR down trended after vitamin K which was given in ED ESR elevated to 37, CRP elevated 2.77 Continue on ceftriaxone and vancomycin for cellulitis. Continue on therapeutic dose Lovenox along with Coumadin. INR slightly improving. Will give warfarin 10 mg today. Elevate and place ice leg. Monitor CBC daily PT OT. Chronic conditions: hx hx SSS status post PPM on Coumadin hx CAD status post CABG hypertension, slightly elevated upon arrival at the ER HLA B27 spondyloarthropathy, PMR as per records, currently not on steroid Rx mood disorder, stable past tobacco abuse DVT prophylaxis. Lovenox, Coumadin resumed Full code Dispopatient continues to be hospitalized due to need for IV antibiotic for severe cellulitis in his left lower extremity. Time spent evaluating patient, direct bedside care, chart review, placing orders, interpretation of diagnostic studies, discussion with consultants, patient, and family members, as well as other required patient management activities is 60 minutes Please note the above document was generated using voice recognition software. It may contain grammatical, syntax or spelling errors. Any formal questions or concerns about the content, text or information contained within the body of this dictation should be directly addressed to the provider for clarification Admission and Anticipated Discharge Date Admission Date: August 07, 2023 Subjective Patient seen and examined at bedside. He reports that it has improved compared to previous day. Review of Systems Review of Systems: All systems reviewed & are unremarkable except as noted in Subjective Physical Exam Physical Exam: GENERAL: Comfortable, pleasant, no respiratory distress SKIN: Pallor, warm HEENT: Bespectacled, pale palpebral conjunctivae, no ptosis, dry buccal mucosa NECK : Supple, no tenderness CHEST : CTA, no tenderness HEART : RRR, no obvious murmurs ABDOMEN: Some distention, nontender EXTREMITIES : Tender LLE induration with ecchymotic areas, no other conspicuous deformities noted. Redness, swelling present on left lower extremity. Overall improved compared to yesterday. NEUROLOGIC : Coherent, no facial asymmetry, gait and stance not assessed Results & Data Results & Data Vital Signs (Past 12 Hours) Vital Signs Temp Pulse Resp BP BP Pulse Ox O2 Del Method 08/11/23 07:43 36.6 C 66 16 144/74 H 93 Room Air 08/11/23 03:00 36.6 C 74 20 158/78 H 93 Room Air Laboratory Results Laboratory Results WBC 3.72 K/ul (4.8-10.8) L 08/11/23 06:01 RBC 3.65 M/uL (4.70-6.10) L 08/11/23 06:01 Hgb 10.7 g/dl (14.0-18.0) L 08/11/23 06:01 Hct 33.0 % (42.0-52.0) L 08/11/23 06:01 MCV 90.4 fL (80.0-100.0) 08/11/23 06:01 MCH 29.3 pg (25.0-34.0) 08/11/23 06:01 MCHC 32.4 g/dL (32.0-36.0) 08/11/23 06:01 RDW Std Deviation 48.5 fL (36.4-46.3) H 08/11/23 06:01 RDW Coeff of Priya 14.5 % (11.5-14.5) 08/11/23 06:01 Plt Count 297 K/uL (130-400) 08/11/23 06:01 MPV 9.1 fL (9.4-12.4) L 08/11/23 06:01 Immature Gran % (Auto) 0.3 % 08/11/23 06:01 Neut % (Auto) 63.1 % 08/11/23 06:01 Lymph % (Auto) 21.0 % 08/11/23 06:01 Tompkins % (Auto) 8.6 % 08/11/23 06:01 Eos % (Auto) 6.5 % 10/15/23 06:01 Baso % (Auto) 0.5 % 08/11/23 06:01 Neut # (Auto) 2.35 K/uL (1.40-6.50) 08/11/23 06:01 Lymph # (Auto) 0.78 K/uL (1.20-3.40) L 08/11/23 06:01 Tompkins # (Auto) 0.32 K/uL (0.11-0.59) 08/11/23 06:01 Eos # (Auto) 0.24 K/uL (0.00-0.50) 08/11/23 06:01 Baso # (Auto) 0.02 K/uL (0.00-0.20) 08/11/23 06:01 Immature Gran # (Auto) 0.01 K/uL (0.01-0.20) 08/11/23 06:01 ESR 37 mm/hr (0-20) H 08/09/23 10:44 PT 12.9 Seconds (9.0-12.0) H 08/11/23 06:01 INR 1.2 (0.9-1.1) H 08/11/23 06:01 Sodium 138 mmol/L (136-145) 08/11/23 06:01 Potassium 4.0 mmol/L (3.5-5.1) 08/11/23 06:01 Chloride 104 mmol/L (98-107) 08/11/23 06:01 Carbon Dioxide 29 mmol/L (21-32) 08/11/23 06:01 Anion Gap 5 (3-11) 08/11/23 06:01 BUN 17 mg/dl (6-23) 08/11/23 06:01 Creatinine 0.73 mg/dl (0.6-1.4) 08/11/23 06:01 Est Cr Clr Drug Dosing 104.1 ml/min 08/11/23 06:01 Est GFR ( Amer) 100.1 ml/min 08/11/23 06:01 Est GFR (Non-Af Amer) 86.4 ml/min 08/11/23 06:01 BUN/Creatinine Ratio 23.3 (10-20) H 08/11/23 06:01 Glucose 107 mg/dl (70-99(Fasting)) H 08/11/23 06:01 Calcium 8.7 mg/dl (8.6-10.3) 08/11/23 06:01 Magnesium 2.1 mg/dl (1.7-2.4) 08/07/23 00:58 Total Bilirubin 1.1 mg/dl (0.2-1.0) H 08/07/23 00:58 AST 17 U/L (13-39) 08/07/23 00:58 ALT 18 U/L (7-52) 08/07/23 00:58 Alkaline Phosphatase 113 U/L (34-104) H 08/07/23 00:58 Total Creatine Kinase 105 U/L (30-223) 08/07/23 00:58 C-Reactive Protein 2.77 mg/dl (0-0.5) H 08/09/23 10:44 Total Protein 7.3 gm/dl (6.0-8.3) 08/07/23 00:58 Albumin 4.2 gm/dl (3.4-5.0) 08/07/23 00:58 Globulin 3.1 gm/dl (2.5-4.0) 08/07/23 00:58 Albumin/Globulin Ratio 1.4 (0.9-2) 08/07/23 00:58 TSH 1.627 uIu/ml (0.300-4.500) 08/07/23 00:58 Urine Color Yellow 08/08/23 21:55 Urine Appearance Clear (Clear) 08/08/23 21:55 Urine pH 5.5 (4.5-7.5) 08/08/23 21:55 Ur Specific Ponce 1.018 (1.000-1.030) 08/08/23 21:55 Urine Protein Negative (Negative) 08/08/23 21:55 Urine Glucose (UA) Negative (Negative) 08/08/23 21:55 Urine Ketones Negative (Negative) 08/08/23 21:55 Urine Blood 3+ (Negative) H 08/08/23 21:55 Urine Nitrite Negative (Negative) 08/08/23 21:55 Urine Bilirubin Negative (Negative) 08/08/23 21:55 Urine Urobilinogen Negative (Negative) 08/08/23 21:55 Ur Leukocyte Esterase Trace (Negative) H 08/08/23 21:55 Urine WBC (Auto) 1-5 /hpf (0-5) 08/08/23 21:55 Urine RBC (Auto) >30 /hpf (0-4) H 08/08/23 21:55 U Hyaline Cast (Auto) 1-5 /lpf (0-5) 08/08/23 21:55 U Epithel Cells (Auto) 10-20 /lpf (0-5) H 08/08/23 21:55 Urine Bacteria (Auto) Negative (Negative) 08/08/23 21:55 Random Vancomycin 13.1 mcg/ml (10-20) 08/10/23 13:06 Blood Type A Positive 08/07/23 04:49 Antibody Screen NEGATIVE 08/07/23 04:49 Impressions Venous Doppler Study 08/06/23 21:24 Exam(s): US VENOUS LEFT LOWER EXTREMITY EXAM: US Duplex Left Lower Extremity Veins CLINICAL HISTORY: Reason for exam: Leg deep vein thrombosis (DVT) suspected. TECHNIQUE: Real-time duplex ultrasound scan of the left lower extremity veins integrating B-mode two-dimensional vascular structure, Doppler spectral analysis, color flow Doppler imaging and compression. COMPARISON: 07/26/2023. FINDINGS: Deep veins: Unremarkable. No DVT in the visualized common femoral, femoral, proximal deep femoral or popliteal veins. The veins demonstrate normal color flow, are normally compressible, with normal phasic flow and/or augmentation response. Superficial veins: Unremarkable. No thrombus in the visualized great saphenous vein. Soft tissues: No acute findings. No popliteal cyst. IMPRESSION: No ultrasonographic evidence of deep venous thrombosis involving the left lower extremity. Electronically signed by: Susan Flannery MD 08/07/23 00:10 AM Ankle X-Ray 08/07/23 00:15 XR knee LT 1 or 2V routine, XR tibia fibula LT 2V, XR ankle LT min 3V routine, XR foot LT min 3V routine CLINICAL HISTORY: fall. Left lower extremity pain. COMPARISON STUDY: None. FINDINGS: Soft tissue swelling within the visualized left lower extremity. Mild vascular calcifications are noted. Surgical clips are seen within the proximal left lower leg. Mild degenerative changes within the left knee and left foot. No acute fracture or dislocation within the left knee, left tibia, left fibula, left ankle, or left foot. Trace left knee effusion. The ankle mortise and Lisfranc joint appears intact. Plantar and posterior calcaneal spurs are noted. Small well-corticated ossific densities adjacent to the medial and lateral malleoli consistent with old avulsion type injuries. IMPRESSION: Diffuse soft tissue swelling within the left lower extremity. No acute fractures within the left knee, left lower leg, left ankle, or left foot. ACT 112: Negative or not required by law. Electronically signed by: Mac Sherman M.D. 08/07/2023 7:07 AM Foot X-Ray 08/07/23 00:15 XR knee LT 1 or 2V routine, XR tibia fibula LT 2V, XR ankle LT min 3V routine, XR foot LT min 3V routine CLINICAL HISTORY: fall. Left lower extremity pain. COMPARISON STUDY: None. FINDINGS: Soft tissue swelling within the visualized left lower extremity. Mild vascular calcifications are noted. Surgical clips are seen within the proximal left lower leg. Mild degenerative changes within the left knee and left foot. No acute fracture or dislocation within the left knee, left tibia, left fibula, left ankle, or left foot. Trace left knee effusion. The ankle mortise and Lisfranc joint appears intact. Plantar and posterior calcaneal spurs are noted. Small well-corticated ossific densities adjacent to the medial and lateral malleoli consistent with old avulsion type injuries. IMPRESSION: Diffuse soft tissue swelling within the left lower extremity. No acute fractures within the left knee, left lower leg, left ankle, or left foot. ACT 112: Negative or not required by law. Electronically signed by: Mac Sherman M.D. 08/07/2023 7:07 AM Knee X-Ray 08/07/23 00:15 XR knee LT 1 or 2V routine, XR tibia fibula LT 2V, XR ankle LT min 3V routine, XR foot LT min 3V routine CLINICAL HISTORY: fall. Left lower extremity pain. COMPARISON STUDY: None. FINDINGS: Soft tissue swelling within the visualized left lower extremity. Mild vascular calcifications are noted. Surgical clips are seen within the proximal left lower leg. Mild degenerative changes within the left knee and left foot. No acute fracture or dislocation within the left knee, left tibia, left fibula, left ankle, or left foot. Trace left knee effusion. The ankle mortise and Lisfranc joint appears intact. Plantar and posterior calcaneal spurs are noted. Small well-corticated ossific densities adjacent to the medial and lateral malleoli consistent with old avulsion type injuries. IMPRESSION: Diffuse soft tissue swelling within the left lower extremity. No acute fractures within the left knee, left lower leg, left ankle, or left foot. ACT 112: Negative or not required by law. Electronically signed by: Mac Sherman M.D. 08/07/2023 7:07 AM Tibia/Fibula X-Ray 08/07/23 00:15 XR knee LT 1 or 2V routine, XR tibia fibula LT 2V, XR ankle LT min 3V routine, XR foot LT min 3V routine CLINICAL HISTORY: fall. Left lower extremity pain. COMPARISON STUDY: None. FINDINGS: Soft tissue swelling within the visualized left lower extremity. Mild vascular calcifications are noted. Surgical clips are seen within the proximal left lower leg. Mild degenerative changes within the left knee and left foot. No acute fracture or dislocation within the left knee, left tibia, left fibula, left ankle, or left foot. Trace left knee effusion. The ankle mortise and Lisfranc joint appears intact. Plantar and posterior calcaneal spurs are noted. Small well-corticated ossific densities adjacent to the medial and lateral malleoli consistent with old avulsion type injuries. IMPRESSION: Diffuse soft tissue swelling within the left lower extremity. No acute fractures within the left knee, left lower leg, left ankle, or left foot. ACT 112: Negative or not required by law. Electronically signed by: Mac Sherman M.D. 08/07/2023 7:07 AM Chest X-Ray 08/07/23 02:58 XR chest 1V portable HISTORY: leg swelling COMPARISON: Chest and left rib series 01/14/2023. FINDINGS: No pneumothorax. No pleural effusions. A few bibasilar linear densities favor subsegmental atelectasis or scarring. Otherwise, no focal lung consolidations to suggest a pneumonia. No evidence for pulmonary edema. Slightly rotated study. Left-sided dual-chamber pacemaker and poststernotomy changes are noted. The heart remains borderline enlarged. There are degenerative changes within the left shoulder. IMPRESSION: No acute process. ACT 112: Negative or not required by law. Electronically signed by: Mac Sherman M.D. 08/07/2023 7:[address] 08/07/23 03:57 CT femur LT wo con CLINICAL HISTORY: Fall. Swelling. COMPARISON STUDY: Left knee radiographs performed earlier today. TECHNIQUE: Axial images of the left femur and thyroid cancer without IV contrast. Sagittal and coronal reconstructions were viewed. Automated exposure control was utilized for the study. A dose lowering technique was utilized adhering to the principles of ALARA. FINDINGS: There is no acute fracture within the left femur. No osseous lesions are identified. Alignment of the left hip and left knee is anatomic. There is moderate left hip osteoarthritis. There is moderate osteoarthritis within the medial compartment of the left knee. Moderate subcutaneous edema of the left thigh is noted. Note is made of an acute intramuscular hematoma within the vastus lateralis at the level of the midshaft of the left femur which measures 5 x 2.9 x 4.8 cm. There is adjacent edema. No additional hematomas are identified. IMPRESSION: 1. No acute fracture within the left femur. 2. 5 x 2.9 x 4.8 cm acute intramuscular hematoma within the vastus lateralis. 3. Moderate subcutaneous edema of the left thigh. ACT 112: Negative or not required by law. Electronically signed by: Kishor Lew M.D. 08/07/2023 6:[address] 08/07/23 03:[address] DOSE: HISTORY: Fall. Left foot swelling TECHNIQUE: Multiaxial CT images of the left foot were performed and reformatted in the sagittal and coronal plane without the use of contrast. A dose lowering technique was utilized adhering to the principles of ALARA. COMPARISON: Left foot radiograph 08/07/2023. FINDINGS: No acute fracture or dislocation within the left foot. The Lisfranc joint appears intact. Mild degenerative changes are noted. Small well-corticated ossific densities adjacent to the medial and lateral malleoli which favor old avulsion type injuries. There are plantar and posterior calcaneal spurs noted. Subcutaneous edema seen throughout the left foot. IMPRESSION: No acute fracture or dislocation within the left foot. ACT 112: Negative or not required by law. Electronically signed by: Mac Sherman M.D. 08/07/2023 6:[address] 08/07/23 03:57 CT tib/fib LT wo con CLINICAL HISTORY: swelling COMPARISON STUDY: Left tibia and fibula radiographs performed earlier today. TECHNIQUE: Axial images of the left tibia and fibula and lower leg were obtained without IV contrast. Sagittal and coronal reconstructions were viewed. Automated exposure control was utilized for the study. A dose lowering technique was utilized adhering to the principles of ALARA. FINDINGS: There is no acute fracture within the left tibia or fibula. No osseous lesions are identified. Talar dome is intact. There is moderate medial compartment osteoarthritis of the left knee. Well-corticated ossicles along the fibular tip and medial malleolus are chronic. Moderate subcutaneous edema of the left lower leg is noted. No hematoma/fluid collection within the left lower leg is noted. IMPRESSION: 1. No acute fracture within the left tibia or fibula. 2. Moderate subcutaneous edema of the left lower leg. ACT 112: Negative or not required by law. Electronically signed by: Kishor Lew M.D. 08/07/2023 6:52 AM
[2023-08-11] MEDS: DOCUSATE SODIUM 100 MG CAP PO PRN (11:05)
--- NOTE | 2023-08-11 14:53 | Cardiology Consultation ---
Date of Consultation August 11, 2023 Assessment & Plan (1) Hematoma of left thigh: (2) Scalp hematoma: (3) Recurrent falls: Mr Marie is a 59-year-old male with past medical history of HLA B27 spondyloarthropathy who is a history of multiple recurrent mechanical falls over the last several years. This time he fell after chasing his cat. Per the description of his presentation, this does sound like a mechanical fall. His dual-chamber Med[employer]onic permanent pacemaker has been interrogated remotely at the time presentation on 08/07/2023 and the data was reviewed today. Generator longevity normal at 9.4 years. Lead function normal. Patient did have a 1 second run of nonsustained ventricular tachycardia on 07/19/2023, but this does not correlate with his fall episode that took place on 07/22/2023. With regards to atrial arrhythmias, his most recent documented atrial fibrillation episodes date back to January, with episodes of 51 seconds, 2 minutes 26 seconds, and 37 seconds in duration at that time. Historically, the patient has not had significant atrial arrhythmias of note since the EP study with atrial ventricular renewal atrial tachycardia ablation that took place in 2019 and subsequent pacemaker implantation. He has also had a surgical left atrial appendage clip as documented by his postoperative notes from CT surgery dating back to 2018, and the clip is visualized on his most recent chest x-ray. With all of this in mind, I think it is most prudent to discontinue the patient's anticoagulation. I have therefore recommended discontinuation of his Lovenox bridge and holding off on reinitiating Coumadin. Recommend resuming aspirin 81 mg daily due to his history of coronary heart disease. The patient has been maintained on sotalol and this is going to be continued. Case discussed by phone with Dr. López. Patient agreeable to the plan of stopping his anticoagulation. History of Present Illness Attending Physician: John López MD History of Present Illness Anson Marie is an 83 year old male seen in cardiology consultation per the request of Dr López for advice with regards to ongoing anticoagulation given his history of falls and bleeding related injury. The patient is well-known to the undersigned as I have followed him as an outpatient and inpatient since 2018. The patient was admitted via the emergency department on 08/07/2023 for evaluation due to progressive left leg swelling. He had a mechanical fall about 2 weeks prior to that falling backwards while chasing his cat. He developed a subsequent left lower leg hematoma as well as a left scalp hematoma. INR at time of presentation was 2.0. A CT of the head had been performed on 07/22/2023 which revealed no acute intracranial abnormality, left posterior scalp swelling noted. A CT of the left femur performed 08/07/2023 revealed a 5 x 2.9 x 4.8 cm acute intramuscular hematoma within the vastus lateralis as well as moderate subcutaneous edema of the left thigh. He received a dose of IV vitamin K at time of presentation. His hemoglobin has remained relatively stable without requiring transfusion. Problem List: 1.Chronic coronary heart disease, status post CABG x4, January 2018, surgical left atrial appendage clip performed at that time 2. AVNRT s/p unsuccessful ablation, sinus node dysfunction s/p PPM implantation Nov 2018. 3.PAF, atrial arrhythmias 4.Recurrent pericarditis post CABG- improved. 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 Allergies Allergy/AdvReac Type Severity Reaction Status Date / Time No Known Allergies Allergy Unverified 08/07/23 01:46 Home Medications Medication Instructions Recorded Confirmed Type aspirin 81 mg tablet,delayed 81 mg PO QAM 12/21/18 08/07/23 History release (Aspir-) atorvastatin 40 mg tablet 40 mg PO HS 12/21/18 08/07/23 History calcium carbonate 500 mg-vitamin 1 tab PO BID 12/21/18 08/07/23 History D3 5 mcg (200 unit) tablet (Calcium 500 + D) furosemide 20 mg tablet 20 mg PO [id number] 12/21/18 08/07/23 History gabapentin 100 mg capsule 300 mg PO BID 12/21/18 08/07/23 History magnesium oxide 400 mg PO QPM 12/21/18 08/07/23 History tamsulosin 0.4 mg capsule 0.4 mg PO AMPM 12/21/18 08/07/23 History sotalol 120 mg tablet 120 mg PO BID 04/14/19 08/07/23 History acetaminophen 500 mg tablet 500 mg PO Q6H PRN Fever Or Pain 08/07/23 08/07/23 History baclofen 10 mg tablet 10 mg PO HS 08/07/23 08/07/23 History docusate sodium 100 mg capsule 100 mg PO BID PRN Constipation 08/07/23 08/07/23 History (Colace) duloxetine 60 mg capsule,delayed 120 mg PO QAM 08/07/23 08/07/23 History release esomeprazole magnesium 40 mg 40 mg PO QPM 08/07/23 08/07/23 History capsule,delayed release (Nexium) ezetimibe 10 mg tablet 10 mg PO QAM 08/07/23 08/07/23 History tramadol 50 mg tablet 50 mg PO Q6 PRN pain,severe 08/07/23 08/07/23 History warfarin 5 mg tablet 5 mg PO [id number] 08/07/23 08/07/23 History warfarin 5 mg tablet 7.5 mg PO .DAILY ON Thursdays08/07/23 08/07/23 History Patient History Medical History (Updated 08/11/23 @ 15:02 by John Tamayo DO) BPH (benign prostatic hyperplasia) CKD (chronic kidney disease), stage III Coronary artery disease s/p CABG x 4 01/2018 Dyslipidemia GERD (gastroesophageal reflux disease) History of atrial flutter History of pericarditis recurrent HLA-B27 spondyloarthropathy HTN (hypertension) Lichen planus on chronic prednisone therapy, follows Dr. Abdullahi Osteoarthritis Osteoporosis Polymyalgia rheumatica Surgical History H/O hernia repair History of cataract extraction History of cataract surgery Hx of four vessel coronary artery bypass graft "01/30/18 at [facility]" Hx of prior ablation treatment "12/09/17" Family History Mother , 44 Cirrhosis, Onset Age: 44 Father , 66 Lung cancer Coronary heart disease Myocardial infarction Other Hypertension Social History (Updated 08/11/23 @ 15:00 by John Tamayo DO) Smoking Status: Former smoker Cigarettes Per Day: 1/2 ppd; Second Hand Exposure: No; Hx Alcohol Use: No Hx Substance Use: No Preferred Language: Croatian Communication Ability: Effective Trampoline Team Coach Required: No Beliefs That Will Affect Care: None marital status: Single Current Living Situation: Alone Current Living Situation Comment: Lives alone, has significant other that lives next door current occupational status: retired 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 [employer] Feels Safe at Home: Yes Assistive Devices: Cane Review of Systems Review of Systems: All systems reviewed & are unremarkable except as noted in HPI & below Physical Exam Constitutional: WD/WN, vitals as above ENMT: Defect noted hematoma at the crown of his head Respiratory: normal respiratory effort, lungs clear to auscultation Cardiovascular: RRR, no murmur, no edema Gastrointestinal (Abdomen): normal bowel sounds, soft, nontender, no hepatosplenomegaly Musculoskeletal: Left lower leg swelling thigh and extending to the lower leg Neurologic: PERRL, EOMI, accommodation nl, no face palsy, no dysarthria Results & Data Vital Signs (Past 12 Hours) Vital Signs Temp Pulse Resp BP BP Pulse Ox O2 Del Method 08/11/23 11:14 36.5 C 62 16 144/73 H 95 Room Air 08/11/23 07:43 36.6 C 66 16 144/74 H 93 Room Air 08/11/23 03:00 36.6 C 74 20 158/78 H 93 Room Air Laboratory Results Coagulation 08/11/23 Range/Units 06:01 PT 12.9 H (9.0-12.0) Seconds CBC 08/11/23 Range/Units 06:01 WBC 3.72 L (4.8-10.8) K/ul RBC 3.65 L (4.70-6.10) M/uL Hgb 10.7 L (14.0-18.0) g/dl Hct 33.0 L (42.0-52.0) % Plt Count 297 (130-400) K/uL Neut # (Auto) 2.35 (1.40-6.50) K/uL Lymph # (Auto) 0.78 L (1.20-3.40) K/uL [place] # (Auto) 0.32 (0.11-0.59) K/uL Eos # (Auto) 0.24 (0.00-0.50) K/uL Baso # (Auto) 0.02 (0.00-0.20) K/uL Comprehensive Metabolic Panel 08/11/23 Range/Units 06:01 Sodium 138 (136-145) mmol/L Potassium 4.0 (3.5-5.1) mmol/L Chloride 104 (98-107) mmol/L Carbon Dioxide 29 (21-32) mmol/L BUN 17 (6-23) mg/dl Creatinine 0.73 (0.6-1.4) mg/dl Glucose 107 H (70-99(Fasting)) mg/dl Calcium 8.7 (8.6-10.3) mg/dl Intake and Output 08/11/23 08/11/23 08/11/23 06:59 14:59 22:59 Intake Total 200 / 1655 1250 / 1250 Balance 200 / 655 1250 / 1250 Intake: IV 530 / 530 Vancomycin HCl 1,500 mg In 530 / 530 Sodium Chloride 0.9% 500 ml @ 200 mls/hr IV Q12H [facility] Rx#: [id number] Oral 200 / 800 720 / 720 Other: Weight 109.2 kg Diagnostic Findings Echocardiogram performed this admission: Moderate concentric left ventricular hypertrophy, LVEF 60 to 65% Mild aortic valve sclerosis without stenosis Right ventricular systolic pressure mildly elevated at 30 to 40 mmHg Trace mitral vegetation, mild tricuspid regurgitation
[2023-08-11] MEDS ORDERED: WARFARIN SOD 10 MG TAB PO SCH (16:00)
[2023-08-11] MEDS: cefTRIAXone SODIUM 2,000 MG in DEXTROSE 5 % MINI-B 50 ML IV SCH (16:28)
[2023-08-11] MEDS: MAGNESIUM OXIDE 400 MG TAB PO SCH (21:32)
[2023-08-11] MEDS: BACLOFEN 10 MG TAB PO SCH (21:32)
[2023-08-11] MEDS: PANTOprazole 40 MG TAB PO SCH (21:32)
[2023-08-11] MEDS: ATORVASTATIN 40 MG TAB PO SCH (21:33)
[2023-08-11] MEDS: oxyCODONE HCL IR 5 MG TAB (IMMEDIATE RELEASE) PO PRN (22:55)
[2023-08-12 06:08] LABS: Basophils # (auto) 0.01 K/uL (0.00-0.20); Basophils % (auto) 0.3 %; Eosinophils # (auto) 0.27 K/uL (0.00-0.50); Eosinophils % (auto) 7.3 %; Hemoglobin 11.2 g/dl (14.0-18.0); Immature Granulocytes # (auto) 0.01 K/uL (0.01-0.20); Immature Granulocytes % (auto) 0.3 %; Lymphocytes # (auto) 0.82 K/uL (1.20-3.40); Lymphocytes % (auto) 22.1 %; Mean Corpuscular Hemoglobin 29.5 pg (25.0-34.0); Mean Corpuscular Volume 92.1 fL (80.0-100.0); Mean Platelet Volume 8.9 fL (9.4-12.4); Monocytes # (auto) 0.35 K/uL (0.11-0.59); Monocytes % (auto) 9.4 %; Neutrophils # (auto) 2.25 K/uL (1.40-6.50); Neutrophils % (auto) 60.6 %; Platelet Count 295 K/uL (130-400); RDW Coefficient of Variation 14.6 % (11.5-14.5); RDW Standard Deviation 49.3 fL (36.4-46.3); White Blood Count 3.71 K/ul (4.8-10.8)
[2023-08-12 06:19] LABS: BUN Creatinine Ratio 19.3 (10-20); C Reactive Protein 1.88 mg/dl (0-0.5); Calcium 9.1 mg/dl (8.6-10.3); Creatinine Clr Calc Pharmacy 91.1 ml/min; Est GFR (Non-African American) 81.9 ml/min; Potassium 4.2 mmol/L (3.5-5.1)
[2023-08-12 06:27] LABS: INR 1.1 (0.9-1.1); Prothrombin Time 12.4 Seconds (9.0-12.0)
[2023-08-12] MEDS: VANCOMYCIN HCL 1,500 MG in SODIUM CHLORIDE 0.9% 500 ML IV SCH ×2 (06:42→18:42)
[2023-08-12] MEDS: EZETIMIBE 10 MG TAB PO SCH (09:20)
[2023-08-12] MEDS: DULoxetine HCL 60 MG CAP PO SCH (09:20)
[2023-08-12] MEDS: ASPIRIN 81 MG ECTAB PO SCH (09:20)
[2023-08-12] MEDS: FUROSEMIDE 20 MG TAB PO SCH (09:21)
[2023-08-12] MEDS: SOTALOL HCL 80 MG TAB PO SCH ×2 (09:21→21:56)
[2023-08-12] MEDS: GABAPENTIN 300 MG CAP PO SCH ×2 (09:21→21:52)
[2023-08-12] MEDS: TAMSULOSIN HCL 0.4 MG CAP PO SCH ×2 (09:21→21:55)
--- NOTE | 2023-08-12 12:51 | Hospitalist Progress Note ---
Date of Service August 12, 2023 Assessment & Plan (1) Hematoma of left thigh: (2) Left leg cellulitis: Plan Patient is a 83-year-old male with history of A-fib on sotalol/Coumadin had a mechanical fall on July 22 Noted to have left thigh swelling since then. Presented to the ED on 07/22 and 07/26. Hemoglobin dropped from 13.2-10.2 during that time. Remained stable since Noted to have increasing left lower extremity swelling and redness; return back to ED. Left femur CT personally reviewed; no acute fracture. 5 x 2.9 x 4.8 cm acute intramuscular hematoma within the vastus lateralis. Left tibia and fibula CT shows moderate subcutaneous edema of left lower leg. Hemoglobin remained stable PT/INR down trended after vitamin K which was given in ED ESR elevated to 37, CRP elevated 2.77; repeat CRP showed slight improvement. Continue on ceftriaxone and vancomycin for cellulitis. Patient reports that the symptoms has continued to persist despite being on antibiotic. Will get infectious disease input. Continue on current antibiotics for now Anticoagulation stopped as recommended by cardiology. Discussed with Dr. Tamayo.. Elevate and place ice leg. Monitor CBC daily PT OT. Chronic conditions: hx hx SSS status post PPM on Coumadin hx CAD status post CABG hypertension, slightly elevated upon arrival at the ER HLA B27 spondyloarthropathy, PMR as per records, currently not on steroid Rx mood disorder, stable past tobacco abuse DVT prophylaxis. Lovenox Full code Dispopatient continues to be hospitalized due to need for IV antibiotic for severe cellulitis in his left lower extremity. Awaiting infectious disease input. Discussed with at bedside. Answered questions/queries Time spent evaluating patient, direct bedside care, chart review, placing orders, interpretation of diagnostic studies, discussion with consultants, patient, and family members, as well as other required patient management activities is 60 minutes Please note the above document was generated using voice recognition software. It may contain grammatical, syntax or spelling errors. Any formal questions or concerns about the content, text or information contained within the body of this dictation should be directly addressed to the provider for clarification Admission and Anticipated Discharge Date Admission Date: August 07, 2023 Subjective Patient seen and examined at bedside. Initially, plan for discharge home on oral antibiotic for which patient is agreeable. However, her felt that patient has still ongoing cellulitis; wanted to receive more IV antibiotics. Review of Systems Review of Systems: All systems reviewed & are unremarkable except as noted in Subjective Physical Exam Physical Exam: GENERAL: Comfortable, pleasant, no respiratory distress SKIN: Pallor, warm HEENT: Bespectacled, pale palpebral conjunctivae, no ptosis, dry buccal mucosa NECK : Supple, no tenderness CHEST : CTA, no tenderness HEART : RRR, no obvious murmurs ABDOMEN: Some distention, nontender EXTREMITIES : Tender LLE induration with ecchymotic areas, no other conspicuous deformities noted. Redness, swelling present on left lower extremity; mostly on the dorsal aspect of the foot. Slightly improved. NEUROLOGIC : Coherent, no facial asymmetry, gait and stance not assessed Results & Data Results & Data Vital Signs (Past 12 Hours) Vital Signs Temp Pulse Pulse Resp BP BP Pulse Ox 08/12/23 11:42 36.5 C 61 18 145/79 H 95 08/12/23 11:03 36.6 C 64 16 158/62 H 158/78 H 94 08/12/23 08:10 36.6 C 64 16 158/62 H 94 08/12/23 07:39 63 08/12/23 04:00 36.8 C 68 18 137/68 95 O2 Del Method 08/12/23 11:42 Room Air 08/12/23 11:03 08/12/23 08:10 Room Air 08/12/23 07:39 08/12/23 04:00 Room Air Laboratory Results Laboratory Results WBC 3.71 K/ul (4.8-10.8) L 08/12/23 05:44 RBC 3.80 M/uL (4.70-6.10) L 08/12/23 05:44 Hgb 11.2 g/dl (14.0-18.0) L 08/12/23 05:44 Hct 35.0 % (42.0-52.0) L 08/12/23 05:44 MCV 92.1 fL (80.0-100.0) 08/12/23 05:44 MCH 29.5 pg (25.0-34.0) 08/12/23 05:44 MCHC 32.0 g/dL (32.0-36.0) 08/12/23 05:44 RDW Std Deviation 49.3 fL (36.4-46.3) H 08/12/23 05:44 RDW Coeff of Priya 14.6 % (11.5-14.5) H 08/12/23 05:44 Plt Count 295 K/uL (130-400) 08/12/23 05:44 MPV 8.9 fL (9.4-12.4) L 08/12/23 05:44 Immature Gran % (Auto) 0.3 % 08/12/23 05:44 Neut % (Auto) 60.6 % 08/12/23 05:44 Lymph % (Auto) 22.1 % 08/12/23 05:44 [place] % (Auto) 9.4 % 08/12/23 05:44 Eos % (Auto) 7.3 % 08/12/23 05:44 Baso % (Auto) 0.3 % 08/12/23 05:44 Neut # (Auto) 2.25 K/uL (1.40-6.50) 08/12/23 05:44 Lymph # (Auto) 0.82 K/uL (1.20-3.40) L 08/12/23 05:44 [place] # (Auto) 0.35 K/uL (0.11-0.59) 08/12/23 05:44 Eos # (Auto) 0.27 K/uL (0.00-0.50) 08/12/23 05:44 Baso # (Auto) 0.01 K/uL (0.00-0.20) 08/12/23 05:44 Immature Gran # (Auto) 0.01 K/uL (0.01-0.20) 08/12/23 05:44 ESR 40 mm/hr (0-20) H 08/12/23 05:44 PT 12.4 Seconds (9.0-12.0) H 08/12/23 05:44 INR 1.1 (0.9-1.1) 08/12/23 05:44 Sodium 139 mmol/L (136-145) 08/12/23 05:44 Potassium 4.2 mmol/L (3.5-5.1) 08/12/23 05:44 Chloride 103 mmol/L (98-107) 08/12/23 05:44 Carbon Dioxide 32 mmol/L (21-32) 08/12/23 05:44 Anion Gap 4 (3-11) 08/12/23 05:44 BUN 16 mg/dl (6-23) 08/12/23 05:44 Creatinine 0.83 mg/dl (0.6-1.4) 08/12/23 05:44 Est Cr Clr Drug Dosing 91.1 ml/min 08/12/23 05:44 Est GFR ( Amer) 95.0 ml/min 08/12/23 05:44 Est GFR (Non-Af Amer) 81.9 ml/min 08/12/23 05:44 BUN/Creatinine Ratio 19.3 (10-20) 08/12/23 05:44 Glucose 110 mg/dl (70-99(Fasting)) H 08/12/23 05:44 Calcium 9.1 mg/dl (8.6-10.3) 08/12/23 05:44 Magnesium 2.1 mg/dl (1.7-2.4) 08/07/23 00:58 Total Bilirubin 1.1 mg/dl (0.2-1.0) H 08/07/23 00:58 AST 17 U/L (13-39) 08/07/23 00:58 ALT 18 U/L (7-52) 08/07/23 00:58 Alkaline Phosphatase 113 U/L (34-104) H 08/07/23 00:58 Total Creatine Kinase 105 U/L (30-223) 08/07/23 00:58 C-Reactive Protein 1.88 mg/dl (0-0.5) H 08/12/23 05:44 Total Protein 7.3 gm/dl (6.0-8.3) 08/07/23 00:58 Albumin 4.2 gm/dl (3.4-5.0) 08/07/23 00:58 Globulin 3.1 gm/dl (2.5-4.0) 08/07/23 00:58 Albumin/Globulin Ratio 1.4 (0.9-2) 08/07/23 00:58 TSH 1.627 uIu/ml (0.300-4.500) 08/07/23 00:58 Urine Color Yellow 08/08/23 21:55 Urine Appearance Clear (Clear) 08/08/23 21:55 Urine pH 5.5 (4.5-7.5) 08/08/23 21:55 Ur Specific Blanchard 1.018 (1.000-1.030) 08/08/23 21:55 Urine Protein Negative (Negative) 08/08/23 21:55 Urine Glucose (UA) Negative (Negative) 08/08/23 21:55 Urine Ketones Negative (Negative) 08/08/23 21:55 Urine Blood 3+ (Negative) H 08/08/23 21:55 Urine Nitrite Negative (Negative) 08/08/23 21:55 Urine Bilirubin Negative (Negative) 08/08/23 21:55 Urine Urobilinogen Negative (Negative) 08/08/23 21:55 Ur Leukocyte Esterase Trace (Negative) H 08/08/23 21:55 Urine WBC (Auto) 1-5 /hpf (0-5) 08/08/23 21:55 Urine RBC (Auto) >30 /hpf (0-4) H 08/08/23 21:55 U Hyaline Cast (Auto) 1-5 /lpf (0-5) 08/08/23 21:55 U Epithel Cells (Auto) 10-20 /lpf (0-5) H 08/08/23 21:55 Urine Bacteria (Auto) Negative (Negative) 08/08/23 21:55 Random Vancomycin 14.0 mcg/ml (10-20) 08/12/23 05:44 Blood Type A Positive 08/07/23 04:49 Antibody Screen NEGATIVE 08/07/23 04:49 Impressions Venous Doppler Study 08/06/23 21:24 Exam(s): US VENOUS LEFT LOWER EXTREMITY EXAM: US Duplex Left Lower Extremity Veins CLINICAL HISTORY: Reason for exam: Leg deep vein thrombosis (DVT) suspected. TECHNIQUE: Real-time duplex ultrasound scan of the left lower extremity veins integrating B-mode two-dimensional vascular structure, Doppler spectral analysis, color flow Doppler imaging and compression. COMPARISON: 07/26/2023. FINDINGS: Deep veins: Unremarkable. No DVT in the visualized common femoral, femoral, proximal deep femoral or popliteal veins. The veins demonstrate normal color flow, are normally compressible, with normal phasic flow and/or augmentation response. Superficial veins: Unremarkable. No thrombus in the visualized great saphenous vein. Soft tissues: No acute findings. No popliteal cyst. IMPRESSION: No ultrasonographic evidence of deep venous thrombosis involving the left lower extremity. Electronically signed by: Susan Flannery MD 08/07/23 00:10 AM Ankle X-Ray 08/07/23 00:15 XR knee LT 1 or 2V routine, XR tibia fibula LT 2V, XR ankle LT min 3V routine, XR foot LT min 3V routine CLINICAL HISTORY: fall. Left lower extremity pain. COMPARISON STUDY: None. FINDINGS: Soft tissue swelling within the visualized left lower extremity. Mild vascular calcifications are noted. Surgical clips are seen within the proximal left lower leg. Mild degenerative changes within the left knee and left foot. No acute fracture or dislocation within the left knee, left tibia, left fibula, left ankle, or left foot. Trace left knee effusion. The ankle mortise and Lisfranc joint appears intact. Plantar and posterior calcaneal spurs are noted. Small well-corticated ossific densities adjacent to the medial and lateral malleoli consistent with old avulsion type injuries. IMPRESSION: Diffuse soft tissue swelling within the left lower extremity. No acute fractures within the left knee, left lower leg, left ankle, or left foot. ACT 112: Negative or not required by law. Electronically signed by: Mac Sherman M.D. 08/07/2023 7:07 AM Foot X-Ray 08/07/23 00:15 XR knee LT 1 or 2V routine, XR tibia fibula LT 2V, XR ankle LT min 3V routine, XR foot LT min 3V routine CLINICAL HISTORY: fall. Left lower extremity pain. COMPARISON STUDY: None. FINDINGS: Soft tissue swelling within the visualized left lower extremity. Mild vascular calcifications are noted. Surgical clips are seen within the proximal left lower leg. Mild degenerative changes within the left knee and left foot. No acute fracture or dislocation within the left knee, left tibia, left fibula, left ankle, or left foot. Trace left knee effusion. The ankle mortise and Lisfranc joint appears intact. Plantar and posterior calcaneal spurs are noted. Small well-corticated ossific densities adjacent to the medial and lateral malleoli consistent with old avulsion type injuries. IMPRESSION: Diffuse soft tissue swelling within the left lower extremity. No acute fractures within the left knee, left lower leg, left ankle, or left foot. ACT 112: Negative or not required by law. Electronically signed by: Mac Sherman M.D. 08/07/2023 7:07 AM Knee X-Ray 08/07/23 00:15 XR knee LT 1 or 2V routine, XR tibia fibula LT 2V, XR ankle LT min 3V routine, XR foot LT min 3V routine CLINICAL HISTORY: fall. Left lower extremity pain. COMPARISON STUDY: None. FINDINGS: Soft tissue swelling within the visualized left lower extremity. Mild vascular calcifications are noted. Surgical clips are seen within the proximal left lower leg. Mild degenerative changes within the left knee and left foot. No acute fracture or dislocation within the left knee, left tibia, left fibula, left ankle, or left foot. Trace left knee effusion. The ankle mortise and Lisfranc joint appears intact. Plantar and posterior calcaneal spurs are noted. Small well-corticated ossific densities adjacent to the medial and lateral malleoli consistent with old avulsion type injuries. IMPRESSION: Diffuse soft tissue swelling within the left lower extremity. No acute fractures within the left knee, left lower leg, left ankle, or left foot. ACT 112: Negative or not required by law. Electronically signed by: Mac Sherman M.D. 08/07/2023 7:07 AM Tibia/Fibula X-Ray 08/07/23 00:15 XR knee LT 1 or 2V routine, XR tibia fibula LT 2V, XR ankle LT min 3V routine, XR foot LT min 3V routine CLINICAL HISTORY: fall. Left lower extremity pain. COMPARISON STUDY: None. FINDINGS: Soft tissue swelling within the visualized left lower extremity. Mild vascular calcifications are noted. Surgical clips are seen within the proximal left lower leg. Mild degenerative changes within the left knee and left foot. No acute fracture or dislocation within the left knee, left tibia, left fibula, left ankle, or left foot. Trace left knee effusion. The ankle mortise and Lisfranc joint appears intact. Plantar and posterior calcaneal spurs are noted. Small well-corticated ossific densities adjacent to the medial and lateral malleoli consistent with old avulsion type injuries. IMPRESSION: Diffuse soft tissue swelling within the left lower extremity. No acute fractures within the left knee, left lower leg, left ankle, or left foot. ACT 112: Negative or not required by law. Electronically signed by: Mac Sherman M.D. 08/07/2023 7:07 AM Chest X-Ray 08/07/23 02:58 XR chest 1V portable HISTORY: leg swelling COMPARISON: Chest and left rib series 01/14/2023. FINDINGS: No pneumothorax. No pleural effusions. A few bibasilar linear densities favor subsegmental atelectasis or scarring. Otherwise, no focal lung consolidations to suggest a pneumonia. No evidence for pulmonary edema. Slightly rotated study. Left-sided dual-chamber pacemaker and poststernotomy changes are noted. The heart remains borderline enlarged. There are degenerative changes within the left shoulder. IMPRESSION: No acute process. ACT 112: Negative or not required by law. Electronically signed by: Mac Sherman M.D. 08/07/2023 7:[address] 08/07/23 03:57 CT femur LT wo con CLINICAL HISTORY: Fall. Swelling. COMPARISON STUDY: Left knee radiographs performed earlier today. TECHNIQUE: Axial images of the left femur and thyroid cancer without IV cont rast. Sagittal and coronal reconstructions were viewed. Automated exposure control was utilized for the study. A dose lowering technique was utilized adhering to the principles of ALARA. FINDINGS: There is no acute fracture within the left femur. No osseous lesions are identified. Alignment of the left hip and left knee is anatomic. There is moderate left hip osteoarthritis. There is moderate osteoarthritis within the medial compartment of the left knee. Moderate subcutaneous edema of the left thigh is noted. Note is made of an acute intramuscular hematoma within the vastus lateralis at the level of the midshaft of the left femur which measures 5 x 2.9 x 4.8 cm. There is adjacent edema. No additional hematomas are identified. IMPRESSION: 1. No acute fracture within the left femur. 2. 5 x 2.9 x 4.8 cm acute intramuscular hematoma within the vastus lateralis. 3. Moderate subcutaneous edema of the left thigh. ACT 112: Negative or not required by law. Electronically signed by: Kishor Lew M.D. 08/07/2023 6:[address] 08/07/23 03:[address] DOSE: HISTORY: Fall. Left foot swelling TECHNIQUE: Multiaxial CT images of the left foot were performed and reformatted in the sagittal and coronal plane without the use of contrast. A dose lowering technique was utilized adhering to the principles of ALARA. COMPARISON: Left foot radiograph 08/07/2023. FINDINGS: No acute fracture or dislocation within the left foot. The Lisfranc joint appears intact. Mild degenerative changes are noted. Small well-corticated ossific densities adjacent to the medial and lateral malleoli which favor old avulsion type injuries. There are plantar and posterior calcaneal spurs noted. Subcutaneous edema seen throughout the left foot. IMPRESSION: No acute fracture or dislocation within the left foot. ACT 112: Negative or not required by law. Electronically signed by: Mac Sherman M.D. 08/07/2023 6:[address] 08/07/23 03:57 CT tib/fib LT wo con CLINICAL HISTORY: swelling COMPARISON STUDY: Left tibia and fibula radiographs performed earlier today. TECHNIQUE: Axial images of the left tibia and fibula and lower leg were obtained without IV contrast. Sagittal and coronal reconstructions were viewed. Automated exposure control was utilized for the study. A dose lowering technique was utilized adhering to the principles of ALARA. FINDINGS: There is no acute fracture within the left tibia or fibula. No osseous lesions are identified. Talar dome is intact. There is moderate medial compartment osteoarthritis of the left knee. Well-corticated ossicles along the fibular tip and medial malleolus are chronic. Moderate subcutaneous edema of the left lower leg is noted. No hematoma/fluid collection within the left lower leg is noted. IMPRESSION: 1. No acute fracture within the left tibia or fibula. 2. Moderate subcutaneous edema of the left lower leg. ACT 112: Negative or not required by law. Electronically signed by: Kishor Lew M.D. 08/07/2023 6:52 AM
--- NOTE | 2023-08-12 15:16 | Pharmacy Report ---
Pharmacy PK ABX Note - Date of Service August 12, 2023 - Assessment and Plan Assessment 08/12: * Patient reportedly ready for discharge home with PO antibiotics, but delayed at this time. Continuing IV for now. 08/10: * Random level 13.1, this is lower than predicted but may still predict therapeutic AUC/HENRY. SCr is stable. Will adjust dose to target higher end of goal range to ensure therapeutic levels. 08/09 83 year old M receiving empiric ceftriaxone and vancomycin for treatment of left leg cellulitis. Patient sustained hematoma to left leg following a fall at home ~2 weeks ago. Patient had previously been ordered doxycycline, which was changed to vancomycin today due to worsening infection. Patient is afebrile w/ no overt leukocytosis. Day # 1 of vancomycin therapy. Plan Vancomycin * Current regimen: 1500 mg IV every 12 hours * Random level obtained 08/12/23 resulted as 14 mcg/mL. This is predicted to achieve target AUC/HENRY of 400-600 mg/L.hr * Predicted AUC at steady state: 507 mg/L.hr * Continue 1500 mg IV every 12 hours * Will repeat level in the next 48-72 hours if therapy is continued and/or change in patient clinical status Ceftriaxone * 2 g IV q24h - no change Pharmacy will continue to follow and will adjust dose/frequency as necessary. Thank you. Pharmacy has transitioned to AUC monitoring for vancomycin. AUC/HENRY is the preferred PK/PD target and is associated with decreased risk of nephrotoxicity compared to traditional trough targets.
[2023-08-12] MEDS: cefTRIAXone SODIUM 2,000 MG in DEXTROSE 5 % MINI-B 50 ML IV SCH (17:10)
[2023-08-12] MEDS: ENOXAPARIN INJ 40 MG/0.4 ML SYR SQ SCH (17:11)
[2023-08-12] MEDS: PANTOprazole 40 MG TAB PO SCH (21:53)
[2023-08-12] MEDS: MAGNESIUM OXIDE 400 MG TAB PO SCH (21:54)
[2023-08-12] MEDS: ATORVASTATIN 40 MG TAB PO SCH (21:54)
[2023-08-12] MEDS: oxyCODONE HCL IR 5 MG TAB (IMMEDIATE RELEASE) PO PRN (22:01)
[2023-08-12] MEDS: BACLOFEN 10 MG TAB PO SCH (22:11)
[2023-08-13] MEDS: VANCOMYCIN HCL 1,500 MG in SODIUM CHLORIDE 0.9% 500 ML IV SCH (06:24)
[2023-08-13 07:22] LABS: BUN Creatinine Ratio 25.7 (10-20); Calcium 8.7 mg/dl (8.6-10.3); Creatinine Clr Calc Pharmacy 102.3 ml/min; Est GFR (African American) 99.6 ml/min; Est GFR (Non-African American) 85.9 ml/min; Potassium 3.8 mmol/L (3.5-5.1)
[2023-08-13] MEDS: DULoxetine HCL 60 MG CAP PO SCH (08:47)
[2023-08-13] MEDS: SOTALOL HCL 80 MG TAB PO SCH (08:47)
[2023-08-13] MEDS: GABAPENTIN 300 MG CAP PO SCH (08:47)
[2023-08-13] MEDS: TAMSULOSIN HCL 0.4 MG CAP PO SCH (08:48)
[2023-08-13] MEDS: EZETIMIBE 10 MG TAB PO SCH (08:48)
[2023-08-13] MEDS: ASPIRIN 81 MG ECTAB PO SCH (08:48)
[2023-08-13] MEDS: ENOXAPARIN INJ 40 MG/0.4 ML SYR SQ SCH (09:05)
--- NOTE | 2023-08-13 14:54 | Hospitalist Progress Note ---
Date of Service August 13, 2023 Assessment & Plan (1) Hematoma of left thigh: (2) Left leg cellulitis: Plan Patient is a 83-year-old male with history of A-fib on sotalol/Coumadin had a mechanical fall on July 22 Noted to have left thigh swelling since then. Presented to the ED on 07/22 and 07/26. Hemoglobin dropped from 13.2-10.2 during that time. Remained stable since Noted to have increasing left lower extremity swelling and redness; return back to ED. Left femur CT personally reviewed; no acute fracture. 5 x 2.9 x 4.8 cm acute intramuscular hematoma within the vastus lateralis. Left tibia and fibula CT shows moderate subcutaneous edema of left lower leg. Hemoglobin remained stable PT/INR down trended after vitamin K which was given in ED ESR elevated to 37, CRP elevated 2.77; repeat CRP showed slight improvement. Continue on ceftriaxone and vancomycin for cellulitis. Patient reports that the symptoms has continued to persist despite being on antibiotic. Will get infectious disease input. Continue on current antibiotics for now Anticoagulation stopped as recommended by cardiology. Discussed with Dr. Tamayo.. Elevate and place ice leg. Monitor CBC daily PT OT. Chronic conditions: hx hx SSS status post PPM on Coumadin hx CAD status post CABG hypertension, slightly elevated upon arrival at the ER HLA B27 spondyloarthropathy, PMR as per records, currently not on steroid Rx mood disorder, stable past tobacco abuse DVT prophylaxis. Lovenox Full code Dispopatient continues to be hospitalized due to need for IV antibiotic for severe cellulitis in his left lower extremity. Awaiting infectious disease input. Please note the above document was generated using voice recognition software. It may contain grammatical, syntax or spelling errors. Any formal questions or concerns about the content, text or information contained within the body of this dictation should be directly addressed to the provider for clarification Admission and Anticipated Discharge Date Admission Date: August 07, 2023 Subjective Patient seen and examined at bedside. Patient continues to report pain and swelling in his left lower extremity. Review of Systems Review of Systems: All systems reviewed & are unremarkable except as noted in Subjective Physical Exam Physical Exam: GENERAL: Comfortable, pleasant, no respiratory distress SKIN: Pallor, warm HEENT: Bespectacled, pale palpebral conjunctivae, no ptosis, dry buccal mucosa NECK : Supple, no tenderness CHEST : CTA, no tenderness HEART : RRR, no obvious murmurs ABDOMEN: Some distention, nontender EXTREMITIES : Tender LLE induration with ecchymotic areas, no other conspicuous deformities noted. Redness, swelling present on left lower extremity; mostly on the dorsal aspect of the foot. Slightly improved. NEUROLOGIC : Coherent, no facial asymmetry, gait and stance not assessed Results & Data Results & Data Vital Signs (Past 12 Hours) Vital Signs Temp Pulse Pulse Resp BP BP Pulse Ox 08/13/23 11:27 36.4 C L 60 18 124/72 96 08/13/23 08:30 08/13/23 07:00 60 08/13/23 07:45 36.6 C 64 18 141/79 H 94 08/13/23 04:00 36.5 C 66 18 130/71 96 O2 Del Method 08/13/23 11:27 Room Air 08/13/23 08:30 Room Air 08/13/23 07:00 08/13/23 07:45 Room Air 08/13/23 04:00 Room Air Laboratory Results Laboratory Results WBC 3.71 K/ul (4.8-10.8) L 08/12/23 05:44 RBC 3.80 M/uL (4.70-6.10) L 08/12/23 05:44 Hgb 11.2 g/dl (14.0-18.0) L 08/12/23 05:44 Hct 35.0 % (42.0-52.0) L 08/12/23 05:44 MCV 92.1 fL (80.0-100.0) 08/12/23 05:44 MCH 29.5 pg (25.0-34.0) 08/12/23 05:44 MCHC 32.0 g/dL (32.0-36.0) 08/12/23 05:44 RDW Std Deviation 49.3 fL (36.4-46.3) H 08/12/23 05:44 RDW Coeff of Priya 14.6 % (11.5-14.5) H 08/12/23 05:44 Plt Count 295 K/uL (130-400) 08/12/23 05:44 MPV 8.9 fL (9.4-12.4) L 08/12/23 05:44 Immature Gran % (Auto) 0.3 % 08/12/23 05:44 Neut % (Auto) 60.6 % 08/12/23 05:44 Lymph % (Auto) 22.1 % 08/12/23 05:44 [place] % (Auto) 9.4 % 08/12/23 05:44 Eos % (Auto) 7.3 % 08/12/23 05:44 Baso % (Auto) 0.3 % 08/12/23 05:44 Neut # (Auto) 2.25 K/uL (1.40-6.50) 08/12/23 05:44 Lymph # (Auto) 0.82 K/uL (1.20-3.40) L 08/12/23 05:44 [place] # (Auto) 0.35 K/uL (0.11-0.59) 08/12/23 05:44 Eos # (Auto) 0.27 K/uL (0.00-0.50) 08/12/23 05:44 Baso # (Auto) 0.01 K/uL (0.00-0.20) 08/12/23 05:44 Immature Gran # (Auto) 0.01 K/uL (0.01-0.20) 08/12/23 05:44 ESR 40 mm/hr (0-20) H 08/12/23 05:44 PT 12.4 Seconds (9.0-12.0) H 08/12/23 05:44 INR 1.1 (0.9-1.1) 08/12/23 05:44 Sodium 138 mmol/L (136-145) 08/13/23 06:23 Potassium 3.8 mmol/L (3.5-5.1) 08/13/23 06:23 Chloride 103 mmol/L (98-107) 08/13/23 06:23 Carbon Dioxide 30 mmol/L (21-32) 08/13/23 06:23 Anion Gap 5 (3-11) 08/13/23 06:23 BUN 19 mg/dl (6-23) 08/13/23 06:23 Creatinine 0.74 mg/dl (0.6-1.4) 08/13/23 06:23 Est Cr Clr Drug Dosing 102.3 ml/min 08/13/23 06:23 Est GFR ( Amer) 99.6 ml/min 08/13/23 06:23 Est GFR (Non-Af Amer) 85.9 ml/min 08/13/23 06:23 BUN/Creatinine Ratio 25.7 (10-20) H 08/13/23 06:23 Glucose 107 mg/dl (70-99(Fasting)) H 08/13/23 06:23 Calcium 8.7 mg/dl (8.6-10.3) 08/13/23 06:23 Magnesium 2.1 mg/dl (1.7-2.4) 08/07/23 00:58 Total Bilirubin 1.1 mg/dl (0.2-1.0) H 08/07/23 00:58 AST 17 U/L (13-39) 08/07/23 00:58 ALT 18 U/L (7-52) 08/07/23 00:58 Alkaline Phosphatase 113 U/L (34-104) H 08/07/23 00:58 Total Creatine Kinase 105 U/L (30-223) 08/07/23 00:58 C-Reactive Protein 1.88 mg/dl (0-0.5) H 08/12/23 05:44 Total Protein 7.3 gm/dl (6.0-8.3) 08/07/23 00:58 Albumin 4.2 gm/dl (3.4-5.0) 08/07/23 00:58 Globulin 3.1 gm/dl (2.5-4.0) 08/07/23 00:58 Albumin/Globulin Ratio 1.4 (0.9-2) 08/07/23 00:58 TSH 1.627 uIu/ml (0.300-4.500) 08/07/23 00:58 Urine Color Yellow 08/08/23 21:55 Urine Appearance Clear (Clear) 08/08/23 21:55 Urine pH 5.5 (4.5-7.5) 08/08/23 21:55 Ur Specific [place] 1.018 (1.000-1.030) 08/08/23 21:55 Urine Protein Negative (Negative) 08/08/23 21:55 Urine Glucose (UA) Negative (Negative) 08/08/23 21:55 Urine Ketones Negative (Negative) 08/08/23 21:55 Urine Blood 3+ (Negative) H 08/08/23 21:55 Urine Nitrite Negative (Negative) 08/08/23 21:55 Urine Bilirubin Negative (Negative) 08/08/23 21:55 Urine Urobilinogen Negative (Negative) 08/08/23 21:55 Ur Leukocyte Esterase Trace (Negative) H 08/08/23 21:55 Urine WBC (Auto) 1-5 /hpf (0-5) 08/08/23 21:55 Urine RBC (Auto) >30 /hpf (0-4) H 08/08/23 21:55 U Hyaline Cast (Auto) 1-5 /lpf (0-5) 08/08/23 21:55 U Epithel Cells (Auto) 10-20 /lpf (0-5) H 08/08/23 21:55 Urine Bacteria (Auto) Negative (Negative) 08/08/23 21:55 Random Vancomycin 14.0 mcg/ml (10-20) 08/12/23 05:44 Blood Type A Positive 08/07/23 04:49 Antibody Screen NEGATIVE 08/07/23 04:49 Impressions Venous Doppler Study 08/06/23 21:24 Exam(s): US VENOUS LEFT LOWER EXTREMITY EXAM: US Duplex Left Lower Extremity Veins CLINICAL HISTORY: Reason for exam: Leg deep vein thrombosis (DVT) suspected. TECHNIQUE: Real-time duplex ultrasound scan of the left lower extremity veins integrating B-mode two-dimensional vascular structure, Doppler spectral analysis, color flow Doppler imaging and compression. COMPARISON: 07/26/2023. FINDINGS: Deep veins: Unremarkable. No DVT in the visualized common femoral, femoral, proximal deep femoral or popliteal veins. The veins demonstrate normal color flow, are normally compressible, with normal phasic flow and/or augmentation response. Superficial veins: Unremarkable. No thrombus in the visualized great saphenous vein. Soft tissues: No acute findings. No popliteal cyst. IMPRESSION: No ultrasonographic evidence of deep venous thrombosis involving the left lower extremity. Electronically signed by: Susan Flannery MD 08/07/23 00:10 AM Ankle X-Ray 08/07/23 00:15 XR knee LT 1 or 2V routine, XR tibia fibula LT 2V, XR ankle LT min 3V routine, XR foot LT min 3V routine CLINICAL HISTORY: fall. Left lower extremity pain. COMPARISON STUDY: None. FINDINGS: Soft tissue swelling within the visualized left lower extremity. Mild vascular calcifications are noted. Surgical clips are seen within the proximal left lower leg. Mild degenerative changes within the left knee and left foot. No acute fracture or dislocation within the left knee, left tibia, left fibula, left ankle, or left foot. Trace left knee effusion. The ankle mortise and Lisfranc joint appears intact. Plantar and posterior calcaneal spurs are noted. Small well-corticated ossific densities adjacent to the medial and lateral malleoli consistent with old avulsion type injuries. IMPRESSION: Diffuse soft tissue swelling within the left lower extremity. No acute fractures within the left knee, left lower leg, left ankle, or left foot. ACT 112: Negative or not required by law. Electronically signed by: Mac Sherman M.D. 08/07/2023 7:07 AM Foot X-Ray 08/07/23 00:15 XR knee LT 1 or 2V routine, XR tibia fibula LT 2V, XR ankle LT min 3V routine, XR foot LT min 3V routine CLINICAL HISTORY: fall. Left lower extremity pain. COMPARISON STUDY: None. FINDINGS: Soft tissue swelling within the visualized left lower extremity. Mild vascular calcifications are noted. Surgical clips are seen within the proximal left lower leg. Mild degenerative changes within the left knee and left foot. No acute fracture or dislocation within the left knee, left tibia, left fibula, left ankle, or left foot. Trace left knee effusion. The ankle mortise and Lisfranc joint appears intact. Plantar and posterior calcaneal spurs are noted. Small well-corticated ossific densities adjacent to the medial and lateral malleoli consistent with old avulsion type injuries. IMPRESSION: Diffuse soft tissue swelling within the left lower extremity. No acute fractures within the left knee, left lower leg, left ankle, or left foot. ACT 112: Negative or not required by law. Electronically signed by: Mac Sherman M.D. 08/07/2023 7:07 AM Knee X-Ray 08/07/23 00:15 XR knee LT 1 or 2V routine, XR tibia fibula LT 2V, XR ankle LT min 3V routine, XR foot LT min 3V routine CLINICAL HISTORY: fall. Left lower extremity pain. COMPARISON STUDY: None. FINDINGS: Soft tissue swelling within the visualized left lower extremity. Mild vascular calcifications are noted. Surgical clips are seen within the proximal left lower leg. Mild degenerative changes within the left knee and left foot. No acute fracture or dislocation within the left knee, left tibia, left fibula, left ankle, or left foot. Trace left knee effusion. The ankle mortise and Lisfranc joint appears intact. Plantar and posterior calcaneal spurs are noted. Small well-corticated ossific densities adjacent to the medial and lateral malleoli consistent with old avulsion type injuries. IMPRESSION: Diffuse soft tissue swelling within the left lower extremity. No acute fractures within the left knee, left lower leg, left ankle, or left foot. ACT 112: Negative or not required by law. Electronically signed by: Mac Sherman M.D. 08/07/2023 7:07 AM Tibia/Fibula X-Ray 08/07/23 00:15 XR knee LT 1 or 2V routine, XR tibia fibula LT 2V, XR ankle LT min 3V routine, XR foot LT min 3V routine CLINICAL HISTORY: fall. Left lower extremity pain. COMPARISON STUDY: None. FINDINGS: Soft tissue swelling within the visualized left lower extremity. Mild vascular calcifications are noted. Surgical clips are seen within the proximal left lower leg. Mild degenerative changes within the left knee and left foot. No acute fracture or dislocation within the left knee, left tibia, left fibula, left ankle, or left foot. Trace left knee effusion. The ankle mortise and Lisfranc joint appears intact. Plantar and posterior calcaneal spurs are noted. Small well-corticated ossific densities adjacent to the medial and lateral malleoli consistent with old avulsion type injuries. IMPRESSION: Diffuse soft tissue swelling within the left lower extremity. No acute fractures within the left knee, left lower leg, left ankle, or left foot. ACT 112: Negative or not required by law. Electronically signed by: Mac Sherman M.D. 08/07/2023 7:07 AM Chest X-Ray 08/07/23 02:58 XR chest 1V portable HISTORY: leg swelling COMPARISON: Chest and left rib series 01/14/2023. FINDINGS: No pneumothorax. No pleural effusions. A few bibasilar linear densities favor subsegmental atelectasis or scarring. Otherwise, no focal lung consolidations to suggest a pneumonia. No evidence for pulmonary edema. Slightly rotated study. Left-sided dual-chamber pacemaker and poststernotomy changes are noted. The heart remains borderline enlarged. There are degenerative changes within the left shoulder. IMPRESSION: No acute process. ACT 112: Negative or not required by law. Electronically signed by: Mac Sherman M.D. 08/07/2023 7:[address] 08/07/23 03:57 CT femur LT wo con CLINICAL HISTORY: Fall. Swelling. COMPARISON STUDY: Left knee radiographs performed earlier today. TECHNIQUE: Axial images of the left femur and thyroid cancer without IV contrast. Sagittal and coronal reconstructions were viewed. Automated exposure control was utilized for the study. A dose lowering technique was utilized adhering to the principles of ALARA. FINDINGS: There is no acute fracture within the left femur. No osseous lesions are identified. Alignment of the left hip and left knee is anatomic. There is moderate left hip osteoarthritis. There is moderate osteoarthritis within the medial compartment of the left knee. Moderate subcutaneous edema of the left thigh is noted. Note is made of an acute intramuscular hematoma within the vastus lateralis at the level of the midshaft of the left femur which measures 5 x 2.9 x 4.8 cm. There is adjacent edema. No additional hematomas are identified. IMPRESSION: 1. No acute fracture within the left femur. 2. 5 x 2.9 x 4.8 cm acute intramuscular hematoma within the vastus lateralis. 3. Moderate subcutaneous edema of the left thigh. ACT 112: Negative or not required by law. Electronically signed by: Kishor Lew M.D. 08/07/2023 6:[address] 08/07/23 03:[address] DOSE: HISTORY: Fall. Left foot swelling TECHNIQUE: Multiaxial CT images of the left foot were performed and reformatted in the sagittal and coronal plane without the use of contrast. A dose lowering technique was utilized adhering to the principles of ALARA. COMPARISON: Left foot radiograph 08/07/2023. FINDINGS: No acute fracture or dislocation within the left foot. The Lisfranc joint appears intact. Mild degenerative changes are noted. Small well-corticated ossific densities adjacent to the medial and lateral malleoli which favor old avulsion type injuries. There are plantar and posterior calcaneal spurs noted. Subcutaneous edema seen throughout the left foot. IMPRESSION: No acute fracture or dislocation within the left foot. ACT 112: Negative or not required by law. Electronically signed by: Mac Sherman M.D. 08/07/2023 6:[address] 08/07/23 03:57 CT tib/fib LT wo con CLINICAL HISTORY: swelling COMPARISON STUDY: Left tibia and fibula radiographs performed earlier today. TECHNIQUE: Axial images of the left tibia and fibula and lower leg were obtained without IV contrast. Sagittal and coronal reconstructions were viewed. Automated exposure control was utilized for the study. A dose lowering technique was utilized adhering to the principles of ALARA. FINDINGS: There is no acute fracture within the left tibia or fibula. No osseous lesions are identified. Talar dome is intact. There is moderate medial compartment osteoarthritis of the left knee. Well-corticated ossicles along the fibular tip and medial malleolus are chronic. Moderate subcutaneous edema of the left lower leg is noted. No hematoma/fluid collection within the left lower leg is noted. IMPRESSION: 1. No acute fracture within the left tibia or fibula. 2. Moderate subcutaneous edema of the left lower leg. ACT 112: Negative or not required by law. Electronically signed by: Kishor Lew M.D. 08/07/2023 6:52 AM
--- NOTE | 2023-08-13 15:58 | Infectious Disease Consult ---
Date of Service August 13, 2023 Telehealth Information I performed this visit using a real-time telehealth connection between my location and the patients location ([facility]). After connecting through interactive tele-video, patient was identified by name and date of and/or wristband check.Patient (or authorized healthcare veterans employment representative) was informed that this was a telemedicine visit and it was being conducted confidentially over secure lines. My office door was closed and no one else was present in the room with me.Patient (or authorized healthcare veterans employment representative) provided consent to proceed with the visit, expressed an understanding of privacy and security of the telemedicine visit, and gave permission to have a hospital veterans employment representative in the room in order to assist with the visit and to conduct portions of the visit, as needed. I informed the patient (or authorized healthcare veterans employment representative) that I reviewed their record and presented the opportunity for them to ask any questions regarding the visit today. The patient agreed to participate. Assessment & Plan (1) Hematoma of left thigh: (2) Left leg swelling: Plan: Assessment: L thigh hematoma w/ LLE swelling and tenderness post traumatic injury r/o posttraumatic LE edema vs cellulitis Hx of SSS s/p PPM on coumadin Recommendations: - I am not convinced that the patient has cellulitis as posttraumatic leg edema is characterized by long-lasting swelling w/ erythema and increased skin temperature as well. As he has no other symptoms (lack of fever or persistent pain) or lab findings to support active infection (ie, lack of leukocytosis). I recommend to monitor the patient off abx. - Stop both ceftriaxone and vancomycin iv - Keep the LLE elevated to relieve the swelling\\ - ID signing off More than 50% of [id number] visit was spent counseling and coordinating care pertaining to the patient's infection diagnosis, additional work-up, and treatment option(s) as well as potential adverse events of the treatment. History of Present Illness History of Present Illness This is an 83 y/o male (Luan) w/ hx of SSS s/p PPM on coumadin, CAD s/p CABG, HTN, and PMR, who presented to [facility] on 08/07/23 for worsening L thigh pain/swelling post fall injury about 2 weeks prior to the hospital presentation: the patient tripped over a chair while chasing a cat and fell backwards, hitting his head on bookcase, w/ LOC. Recent XR showed no evidence of fracture. LE doppler was negative for DVT. No fever was noted on this admission but CT showed 5 x 3 x 4.8 cm IM hematoma w/in vastus lateralis w/ moderate subcu edeam in LLE. He was started on vancomycin and ceftriaxone. ID was called as patients symptoms did not improve on abx therapy. LLE has improved to a point that he can walk on it. It is still warm and red but no obvious pain or tender. No f/c, n/v, abd pain, diarrhea, coughing, cp, sob, or urinary symptoms. Allergies Allergy/AdvReac Type Severity Reaction Status Date / Time No Known Allergies Allergy Unverified 08/07/23 01:46 Home Medications Medication Instructions Recorded Confirmed Type atorvastatin 40 mg tablet 40 mg PO HS 12/21/18 08/07/23 History calcium carbonate 500 mg-vitamin 1 tab PO BID 12/21/18 08/07/23 History D3 5 mcg (200 unit) tablet (Calcium 500 + D) furosemide 20 mg tablet 20 mg PO [id number] 12/21/18 08/07/23 History gabapentin 100 mg capsule 300 mg PO BID 12/21/18 08/07/23 History magnesium oxide 400 mg PO QPM 12/21/18 08/07/23 History tamsulosin 0.4 mg capsule 0.4 mg PO AMPM 12/21/18 08/07/23 History sotalol 120 mg tablet 120 mg PO BID 04/14/19 08/07/23 History acetaminophen 500 mg tablet 500 mg PO Q6H PRN Fever Or Pain 08/07/23 08/07/23 History baclofen 10 mg tablet 10 mg PO HS 08/07/23 08/07/23 History docusate sodium 100 mg capsule 100 mg PO BID PRN Constipation 08/07/23 08/07/23 History (Colace) duloxetine 60 mg capsule,delayed 120 mg PO QAM 08/07/23 08/07/23 History release esomeprazole magnesium 40 mg 40 mg PO QPM 08/07/23 08/07/23 History capsule,delayed release (Nexium) ezetimibe 10 mg tablet 10 mg PO QAM 08/07/23 08/07/23 History tramadol 50 mg tablet 50 mg PO Q6 PRN pain,severe 08/07/23 08/07/23 History aspirin 81 mg tablet,delayed 81 mg PO QAM #30 tabs 08/12/23 Rx release cephalexin 500 mg capsule 500 mg PO Q6H 7 days #28 caps 08/12/23 Rx doxycycline hyclate 100 mg capsule 100 mg PO Q12H 7 days #14 caps 08/12/23 Rx Patient History Medical History (Updated 08/13/23 @ 15:55 by Rowdy Ma MD) BPH (benign prostatic hyperplasia) CKD (chronic kidney disease), stage III Coronary artery disease s/p CABG x 4 01/2018 Dyslipidemia GERD (gastroesophageal reflux disease) History of atrial flutter History of pericarditis recurrent HLA-B27 spondyloarthropathy HTN (hypertension) Lichen planus on chronic prednisone therapy, follows Dr. Abdullahi Osteoarthritis Osteoporosis Polymyalgia rheumatica Surgical History H/O hernia repair History of cataract extraction History of cataract surgery Hx of four vessel coronary artery bypass graft "01/30/18 at [facility]" Hx of prior ablation treatment "12/09/17" Family History Mother , 44 Cirrhosis, Onset Age: 44 Father , 66 Lung cancer Coronary heart disease Myocardial infarction Other Hypertension Social History (Updated 08/11/23 @ 15:00 by John Tamayo DO) Smoking Status: Former smoker Cigarettes Per Day: 1/2 ppd; Second Hand Exposure: No; Hx Alcohol Use: No Hx Substance Use: No Preferred Language: Haitian Communication Ability: Effective Wharf Helper Required: No Beliefs That Will Affect Care: None marital status: Single Current Living Situation: Alone Current Living Situation Comment: Lives alone, has significant other that lives next door current occupational status: retired 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 [employer] Feels Safe at Home: Yes Assistive Devices: Cane Review of Systems as HPI and all others negative Physical Exam Gen: no acute distress Neuro: awake, alert, oriented x3 LLE: +swelling on LLE w/ faint redness on L ankle and bauer, +tenderness and warmth when touched by the nursing staff at bedside Results & Data Vital Signs (Past 12 Hours) Vital Signs Temp Pulse Pulse Resp BP BP Pulse Ox 08/13/23 15:44 36.4 C L 64 19 124/66 96 08/13/23 11:27 36.4 C L 60 18 124/72 96 08/13/23 08:30 08/13/23 07:00 60 08/13/23 07:45 36.6 C 64 18 141/79 H 94 08/13/23 04:00 36.5 C 66 18 130/71 96 O2 Del Method 08/13/23 15:44 Room Air 08/13/23 11:27 Room Air 08/13/23 08:30 Room Air 08/13/23 07:00 08/13/23 07:45 Room Air 08/13/23 04:00 Room Air Laboratory Results WBC 3.71K H 11.2 Plt 295K ESR 40 CRP 1.88 Cr [address] LE: 1. No acute fracture within the left tibia or fibula. 2. Moderate subcutaneous edema of the left lower leg. 3. No acute fracture or dislocation within the left foot. 4. 5 x 2.9 x 4.8 cm acute intramuscular hematoma within the vastus lateralis. 5. Moderate subcutaneous edema of the left thigh. Medications Administered Vancomycin iv and ceftriaxone
--- NOTE | 2023-08-13 16:35 | Discharge Summary ---
Date of Service August 13, 2023 Admission HPI Per Admitting Provider History obtained from patient and records. 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 Subsequent pacemaker placement for tachybradycardia syndrome. Patient fell at home 2 weeks ago after tripping over a chair while chasing his cat. Patient fell backwards and hit his head. May have passed out. Achy headache symptoms. Left thigh pain. No chest pain, no SOB. Patient consulted ER. Posterior scalp swelling on CT head imaging. Patient discharged home. Patient noted worsening left leg swelling following injury. No fractures on outpatient pelvic and left femur x-rays. LE Dopplers done at ER negative for DVT. Patient discharged home from the ER. Worsening LLE swelling since second ER visit. No headache, no chest pain, no unusual shortness of breath. No fever, no chills. Keflex administered at the ER. 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 Admission Exam Per Admitting Provider GENERAL: Comfortable, pleasant, no respiratory distress SKIN: Pallor, warm HEENT: Bespectacled, pale palpebral conjunctivae, no ptosis, dry buccal mucosa NECK : Supple, no tenderness CHEST : CTA, no tenderness HEART : RRR, no obvious murmurs ABDOMEN: Some distention, nontender EXTREMITIES : Tender LLE induration with ecchymotic areas, no other conspicuous deformities noted NEUROLOGIC : Coherent, no facial asymmetry, gait and stance not assessed Principal Diagnosis (1) Hematoma of left thigh: (2) Left leg cellulitis: Discharge Exam GENERAL: Comfortable, pleasant, no respiratory distress SKIN: Pallor, warm HEENT: Bespectacled, pale palpebral conjunctivae, no ptosis, dry buccal mucosa NECK : Supple, no tenderness CHEST : CTA, no tenderness HEART : RRR, no obvious murmurs ABDOMEN: Some distention, nontender EXTREMITIES : Tender LLE induration with ecchymotic areas, no other conspicuous deformities noted. Redness, swelling present on left lower extremity; mostly on the dorsal aspect of the foot. Slightly improved. NEUROLOGIC : Coherent, no facial asymmetry, gait and stance not assessed Discharge Data Allergies Allergy/AdvReac Type Severity Reaction Status Date / Time No Known Allergies Allergy Unverified 08/07/23 01:46 Consultations 08/07/23 02:19 ED Decision to Admit Stat 08/07/23 07:14 Consult Orthopedic Surgery Routine 08/11/23 14:46 Consult Cardiology Routine 08/12/23 12:27 Consult Infectious Diseases Routine Ordered Studies 08/06/23 21:24 US venous doppler LE LT Urgent 08/07/23 03:57 CT foot LT wo con Stat CT leg [CT femur LT wo con] Stat CT leg [CT tib/fib LT wo con] Stat Hospital Course (1) Hematoma of left thigh: (2) Left leg cellulitis: Plan Patient is a 83-year-old male with history of A-fib on sotalol/Coumadin had a mechanical fall on July 22 Noted to have left thigh swelling since then. Presented to the ED on 07/22 and 07/26. Hemoglobin dropped from 13.2-10.2 during that time. Remained stable since Noted to have increasing left lower extremity swelling and redness; return back to ED. Left femur CT personally ; no acute fracture. 5 x 2.9 x 4.8 cm acute intramuscular hematoma within the vastus lateralis. Left tibia and fibula CT shows moderate subcutaneous edema of left lower leg. Hemoglobin remained stable PT/INR down trended after vitamin K which was given in ED ESR elevated to 37, CRP elevated 2.77; repeat CRP showed slight improvement. During the hospitalization, patient was treated with IV antibiotics. Some improvement was noticed with antibiotics. Also, ice packs and elevation of the leg was done. Infectious disease was consulted for comanagement; the likely cause for the redness/swelling is posttraumatic leg edema. Did not recommend antibiotics. Discussed with patient; agreeable for 5 more days of oral antibiotic. Recommended to keep the leg elevated and place ice packs. Patient to follow-up with PCP. Please note the above document was generated using voice recognition software. It may contain grammatical, syntax or spelling errors. Any formal questions or concerns about the content, text or information contained within the body of this dictation should be directly addressed to the provider for clarification Total Time Total Time Spent Total Time Spent (In Minutes): 45 Total Time Includes: Examination of the Patient, Discharge Planning, Medication Reconciliation, Communication With Other Providers and Other Discharge Plan Discharge Items Patient Disposition: Home - Self-Care Reason For Visit: SYNCOPE,LLE CELLULITIS/HEMATOMA Discharge Diagnosis: Left thigh hematoma Left lower extremity cellulitis Activity: Resume your previous activity Non-emergency contact: Primary Care Provider Call non-emergency contact if: you have any medication questions Follow-up/Referrals: Nikita Brady MD [Primary Care Provider] - (Date & Time 08/15/2023 9:40 AM Provider ROSIE Warner Department Family [facility] ) Diet: Regular Addtl Attending Provider Instructions: You were admitted to the hospital due to cellulitis of the left leg which is infection of the overlying skin. You are prescribed following antibiotics to complete the antibiotic course for the next 5 days: 1) Keflex 500 mg 4 times a day 2) Doxycycline 100 mg twice a day You were evaluated by cardiology during the hospitalization. They do not recommend that you restart on Coumadin. They recommend you to be restarted on aspirin. An appointment will be set up with your primary care doctor for sometime later this week or next week Pending Studies at Discharge: No Stand-Alone Forms: My Talknote, Smoking Cessation Medications and DC Order Prescriptions: New aspirin 81 mg Tablet,Delayed Release (Dr/Ec) 81 mg PO QAM Qty: 30 0RF cephalexin 500 mg capsule 500 mg PO Q6H 7 Days Qty: 28 0RF doxycycline hyclate 100 mg capsule 100 mg PO Q12H 7 Days Qty: 14 0RF Continued sotalol 120 mg tablet 120 mg PO BID atorvastatin 40 mg tablet 40 mg PO HS tamsulosin 0.4 mg capsule 0.4 mg PO AMPM furosemide 20 mg tablet 20 mg PO [id number] Rx Instructions: TAKES ON MON,WEDS,FRI,SAT gabapentin 100 mg capsule 300 mg PO BID calcium carbonate-vitamin D3 [Calcium 500 + D] 500 mg(1,250mg) -200 unit Tablet 1 tab PO BID magnesium oxide 400 mg Capsule 400 mg PO QPM tramadol 50 mg tablet 50 mg PO Q6 PRN (Reason: pain,severe) baclofen 10 mg tablet 10 mg PO HS duloxetine 60 mg capsule,delayed release(DR/EC) 120 mg PO QAM docusate sodium [Colace] 100 mg capsule 100 mg PO BID PRN (Reason: Constipation) ezetimibe 10 mg tablet 10 mg PO QAM acetaminophen 500 mg Tablet 500 mg PO Q6H PRN (Reason: Fever Or Pain) esomeprazole magnesium [Nexium] 40 mg Capsule,Delayed Release(Dr/Ec) 40 mg PO QPM Discontinued aspirin [Aspir-81] 81 mg Tablet,Delayed Release (Dr/Ec) 81 mg PO QAM warfarin 5 mg tablet 5 mg PO [id number] Rx Instructions: take every day except warfarin 5 mg tablet 7.5 mg PO .DAILY ON THURSDAYS Admission Data Admit Date/Time: 08/07/23 04:01 Attending Provider: John López Admit Provider: Eusebio Mcdonald Primary Care Provider: Nikita Brady Other Providers: Eusebio Mcdonald ; Izzy Davis ; Claudy Davis ; [facility],Home Healthcare ; [facility],Referral Center ; Parveen Rivera ; Rowdy Ma ; Keenan Castro I. ; Tha Lau II ; Gardenia Snyder ; Lawrence Lopez ; Andry Leonard ; Rosa M Mcgarry Other Interventions: Discharge Summary Assessment (RN) Last Done: 08/12/23 11:03
== END 2023-08-13 18:47 | disposition home health service (06) | DRG 605 ==
LOC: ED 21:00 → SUATTDRO 08-07 04:01 → EDINP 08-07 04:01 → 2N 08-07 04:27

== ENCOUNTER 2024-04-25 17:14 | Observation (INO) ==
--- OUTSIDE RECORDS SUMMARY | 2024-04-25 17:20 | External Medical Summary | Summary of Care ---
Author Name Unknown Organization [facility] Address [address] [place] [address] Phone [phone] Care Team Providers Care Licensed Funeral Director And Embalmer Name Role Phone Trevor Ford MD Primary Care Provider [phone] Reason for Visit * Reason Comments eRx-Medication Refill Encounter Details Date Type Department Care Team (Late st Contact Info) Description 04/15/2024 Refill Family Practice [facility] [address] [place] [place] [address] Trevor Ford MD [address] [place] [address] BPH with obstruction/lower urinary tract symptoms Allergies Active Allergy Reactions Criticality Noted Date Comments Pollen 05/31/2016 Dust,mold documented as of this encounter (statuses as of 04/15/2024) Medications Medication Sig Dispensed Refills Start Date End Date Status NEXIUM 40 MG PO CPDR Take one capsule by mouth one time daily 30 Cap 5 5 Active Calcium Carb-Cholecalcif bonita (CALCIUM + D3) 600-200 MG-UNIT per tablet Take 2 Tablets by mouth in the morning. Active Magnesium Oxide 400 MG CapsuleIndicatio ns:Paroxysmal atrial fibrillation (HCC),AVNRT (AV bia re-entry tachycardia) (HCC),Coronary artery disease involving [place] coronary artery of [place] heart without angina pectoris Take 1 Cap by mouth daily. 30 Cap 5 9 Active Aspirin 81 MG Oral Tablet ChewableIndicati ons:Paroxysmal atrial fibrillation (HCC) Take 1 Tablet by mouth in the morning. 1 Active oxyCODONE HCl 5 MG Oral Tablet (Oxy IR) Take 1 Tablet by mouth every 8 hours as needed. For pain. 3 Active Lidocaine 4 % External Patch (Aspercreme) Place 1 Patch topically on the skin daily. 30 Patch 3 Active Hyoscyamine Sulfate ER 0.375 MG Oral Tablet Extended Release 12 Hour (Levbid) Take 1 Tablet by mouth 2 times a day as needed for Cramping. For abdominal pain. Do not cut, crush or chew 60 Tablet 2 3 Active Lisinopril 5 MG Oral Tablet (Prinivil) 3 Active Baclofen 10 MG Oral Tablet (Lioresal) TAKE 1 TABLET BY MOUTH EVERYDAY AT BEDTIME 90 Tablet 3 3 Active Sotalol HCl 120 MG Oral TabletIndication s:Paroxysmal atrial fibrillation (HCC),AVNRT (AV bia re-entry tachycardia) (HCC) TAKE 1 TABLET BY MOUTH TWICE A DAY 180 Tablet 3 3 Active traMADol HCl 50 MG Oral Tablet (Ultram)Indicati ons:Fall at home, sequela Take 1 Tablet by mouth every 6 hours as needed for Pain, Severe. 30 Tablet 3 Active Nirmatrelvir&Rit onavir 300/100 20 x 150 MG & 10 x 100MG Oral Tablet Therapy Pack (Paxlovid) Take 2 pink tablets of Nirmatrelvir and 1 white tablet of Ritonavir two times a day by mouth. 30 Tablet 3 Active Additional Information Patient not taking.Reported on 10/07/2023 Nitroglycerin 0.2% rectal ointment Administer into the rectum 2 times a day. 30 g 3 Active Additional Information Patient not taking.Reported on 10/07/2023 Hydrocortisone Acetate 25 MG Rectal Suppository (Anusol-HC) Administer into the rectum 2 times a day in the morning and at bedtime as needed for Hemorrhoids. Up to 2 weeks. 24 Suppository 1 3 Active Gabapentin 100 MG Oral Capsule (Neurontin)Indic ations:Post herpetic neuralgia TAKE 3 CAPS BY MOUTH TWICE DAILY 540 Capsule 1 3 Active Atorvastatin Calcium 40 MG Oral Tablet (Lipitor)Indicat ions:Dyslipidemi a TAKE 1 TABLET BY MOUTH EVERY DAY 90 Tablet 3 3 Active Amoxicillin-Pot Clavulanate 875-125 MG Oral Tablet (Augmentin) Take 1 Tablet by mouth in the morning and 1 Tablet before bedtime. 4 Active Furosemide 20 MG Oral Tablet (Lasix)Indicatio ns:Pleural effusion, left TAKE ONE TABLET BY MOUTH DAILY IN MORNING ON MONDAYS, WEDNESDAYS, FRIDAYS, SATURDAYS 48 Tablet 3 4 Active Ezetimibe 10 MG Oral Tablet (Zetia)Indicatio ns:Dyslipidemia TAKE 1 TABLET BY MOUTH EVERY DAY 90 Tablet 3 4 Active DULoxetine HCl 60 MG Oral Capsule Delayed Release Particles (Cymbalta)Indica tions:Adjustment disorder with depressed mood TAKE 2 CAPSULES BY MOUTH EVERY DAY 180 Capsule 3 4 Active Tamsulosin HCl 0.4 MG Oral Capsule (Flomax)Indicati ons:BPH with obstruction/lowe r urinary tract symptoms TAKE 2 CAPSULES BY MOUTH EVERY DAY 180 Capsule 3 4 Active Tamsulosin HCl 0.4 MG Oral Capsule (Flomax)Indicati ons:BPH with obstruction/lowe r urinary tract symptoms TAKE 2 CAPSULES BY MOUTH EVERY DAY 180 Capsule 3 3 04/15/20 24 Discontinued documented as of this encounter (statuses as of 04/15/2024) Active Problems Problem Noted Date Diagnosed Date Recurrent major depressive disorder, in full rem ission 12/11/2022 Sigmoid diverticulosis 12/11/2022 Obesity, Class I, BMI 30.0-34.9 (see actual BMI) 05/15/2022 Hx of nonmelanoma skin cancer 06/09/2021 Overview: 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, BCC R lateral back 05/2020 Irritable bowel syndrome wit h both constipation and diarrhea 07/10/2019 Non-ischemic cardiomyopathy 03/02/2019 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 Cardiac pacemaker in situ 01/12/2019 Paroxysmal atrial fibrillation 06/27/2018 HTN, goal below 130/80 06/19/2018 DDD (degenerative disc disease), lumbar 04/14/20 Coronary artery disease invo lving [place] coronary artery of [place] heart without angina pectoris 03/13/2018 S/P CABG x 4 12/12/2017 Hx of actinic keratosis 06/04/2017 BPH with obstruction/lower urinary tract symptom s 04/11/2017 Primary osteoarthritis of both hands 04/01/2017 Senile osteoporosis 10/03/2016 Gastroesophageal reflux disease with esophagitis 02/08/2016 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 of systemic steroids 11/07 Dyslipidemia Polymyalgia rheumatica Overview: Dr Sevilla HLA-B27 spondyloarthropathy documented as of this encounter (statuses as of 04/15/2024) Resolved Problems Problem Noted Date Diagnosed Date Resolved Date Adjustment disorder with depressed mood 09/14/2019 12/11/2022 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, stage III 03/02/2019 03/07/2020 Supraventricular tachycardia 03/02/2019 07/10/2019 History of atrial fibrillation 06/19/2018 06/27/2018 Kidney disease, chronic, sta ge III (GFR 30-59 ml/min) 06/10/2018 03/11/2019 Overview: Per CKD protocol #1 - Pericarditis, chronic 05/22/20182018 Post herpetic neuralgia 03/24/201805/30 Pleural effusion, left 03/13/201806/19 Controlled substance agreement signed 02/19/2018 02/19/2018 Afib 02/05/2018 06/19/2018 Left main coronary artery disease 01/30/2018 06/19/2018 Postoperative anemia due to acute blood loss 8 06/19/2018 Incomplete right bundle branch block 12/18/2017 03/07/2020 Non-ischemic cardiomyopathy 12/12/2017 02/17/2018 Acute bronchitis, complicated 03/19/2016 10/11/2016 Bleeding from the nose 06/22/201502/07 Epistaxis 01/17/2015 02/08/2016 Acute sinusitis 10/18/2014 02/08/2016 Stress reaction 09/14/2014 02/08/2016 HLA B27 (HLA B27 positive) 03/30/2014 0 03/30/2014 Need for shingles vaccine 08/25/2013 Pain, joint, shoulder, right 03/02/2013 08/25/2013 Preop examination 01/22/2013 08/25/2013 BPH without obstruction/lowe r urinary tract symptoms 07/17/2011 08/25/2013 Lichen planus 04/19/2011 01/18/2021 Elevated blood pressure, situational 01/31/2011 02/16/2011 ADVANCE DIRECTIVE INFORMATION 07/12/2010 10/11/2016 Overview: No, Advance Directive brochure given to patient at prior appointment. Routine medical exam 07/06/2010 017 Chronic rhinitis 07/06/2010 03/02/2013 Special screening for malign ant neoplasms, colon 07/06/2010 03/02/2013 Other symptoms involving uri nary system(788.99) 07/06/2010 03/02/2013 Epistaxis 11/09/2009 08/25/2013 Other specified oesophagitis 02/08/2016 Overview: barretts-onPPI Benign localized hyperplasia of prostate without urinary obstruction and other lower urinary tract symptoms (LUTS) 10/11/2016 HTN, goal below 150/90 06/19 Dry eyes, bilateral 10/11/20 16 HLA B27 (HLA B27 positive) 1 12/12/2015 documented as of this encounter (statuses as of 04/15/2024) Immunizations Name Administration Dates Next Due COVID-19 mRNA, LNP-s, No Pre serve, 2-Dose Series (U[employer] Wireless) 09/12/2021,01/25/2021,12/28/2020 Pneumococcal Conjugate Vacc, 13 Valent (Prevnar) 10/14/2015 Pneumococcal Polysaccharide PPV23 (Pneumovax) 07/06/2010 Season Influenza, Quad, PF, Adjuvanted, 65+ Yrs, IM (FLUAD) 07/19/2020 Seasonal Influenza, PF, 6 M & above, IM , (FluLaval or Fluzone) 08/22/2018 Seasonal Influenza, Quadriva lent Hd (Fluzone Hd) 07/11/2023,07/06/2022,08/01/2021 Seasonal Influenza, Split, I IV3, With Preserve, Inj 08/15/2016,06/30/2015,07/15/2014,07/29,07/17/2012,07/17/2011,07/28/20 10 Seasonal Influenza, Trivalen t, Adjuvanted, 65+ yrs 08/04/2020,07/03/2019 Seasonal Influenza, Trivalen t, High Dose, No Preserve, IM 08/20/2017 TD, Preservative Free 07/06/2010 TDAP (age 10 and older)(Boostrix) 02/05/2023,12/2016 Varicella Zoster Vaccine (Adult) 08/25/2013 Zoster Vaccine Recombinant (Shingrix) 12/17/2019 ,10/09/2019 12/10/2019 documented as of this encounter Social History Tobacco Use Types Packs/Day Years Used Date Smoking Tobacco: Former Cigarettes 0 30 0 10/28/1961 - 10/28/1991 Pipe Smokeless Tobacco: Never Comments:quit about 1991-pip e smoker Alcohol Use Standard Drinks/Week Comments Yes 0 (1 standard drink = 0.6 oz pur e alcohol) 1 glasses wine/day PHQ-2 Answer Date Recorded PHQ Adult Total Score 2 05/15/2022 Hunger Vital Sign Answer Date Recorded Within the past 12 months, y ou worried that your food would run out before you got the money to buy more. Never true 07/25/20 23 Within the past 12 months, t he food you bought just didn't last and you didn't have money to get more. Never true 07/25/2023 Childcare Answer Date Recorded Do you feel overwhelmed with taking care of a child, family member or friend? No 07/25/2023 Does your family need help f inding childcare? (Household - for ages 0-17 years) Not on file 07/25/2023 Clothing Answer Date Recorded Have you been unable to get clothing when it was really needed? No 07/25/2023 Is your family able to get c lothes or diapers when needed? (Household - for ages 0-17 years) Not on file 07/25/2023 Personal Safety Answer Date Recorded Do you feel unsafe or have concerns for your saf ety? No 07/25/2023 Do you have concerns for you r family's safety? (Household - for ages 0-17 years) Not on file 07/25/2023 Utilities Answer Date Recorded Do you have trouble paying y our heating, water, or electric bill? No 07/25/2023 Is your family able to pay t he heat, water, or electric bill? (Household - for ages 0-17 years) Not on file 07/25/2023 Does your family have access to good internet? (Household - for ages 0-17 years) Not on file 07/25/2023 Employment Status Answer Date Recorded Are you unemployed or without regular income? No 07/25/2023 Does the household have a re gular source of income? (Household - for ages 0-17 years) Not on file 07/25/2023 Social Connections Answer Date Recorded How often do you feel lonely or isolated from th ose around you? Rarely 07/25/2023 Financial Resource Strain Answer Date R ecorded Do you have any trouble payi ng for your medications, or do you think you might in the future? No 07/25/2023 Does your family have troubl e paying for medicine? (Household - for ages 0-17 years) Not on file 07/25/2023 Transportation Needs Answer Date Record ed READ ONLY Do you have troubl e getting a ride to medical visits or work? Never True 07/25/2023 Does your family have a hard time getting a ride to doctors visits? (Household - for ages 0-17 years) Not on file 07/25/2023 Has lack of transportation k ept you from medical appointments, meetings, work, or from getting things needed for daily living? Check all that apply. (Adult - for ages 18 years and over) Not on file 07/25/2023 Do you (or your family) have trouble finding or paying for a ride (transportation)? (Household - for ages 0-17 years) Not on file 07/25/2023 Housing Stability Answer Date Recorded Do you currently live in a s helter or have no steady place to sleep at night? No 07/25/2023 READ ONLY Do you think you a re at risk of becoming homeless? No 07/25/2023 Does your family worry about paying for your home or becoming homeless? (Household - for ages 0-17 years) Not on file 0 07/25/2023 Are you homeless or worried that you might be in the future? (Adult - for ages 18 years and over) Not on file 3 Are you (or your family) sheri eless or worried that you might be in the future? (Household - for ages 0-17 years) Not on file Food Insecurity Answer Date Recorded Do you need food for this week? No 07/25/2023 Are you able to get enough f ood for your family? (Household - for ages 0-17 years) Not on file 07/25/2023 Does your family need food t his week? (Household - for ages 0-17 years) Not on file 07/25/2023 Do you always have enough fo od for your family? (Household - for ages 0-17 years) Not on file 07/25/2023 Sex and Gender Information Value Date Recorded Sex Assigned at Not on file Gender Identity Not on file Sexual Orientation Not on file Job Start Date Occupation Industry Not on file Not on file Not on file documented as of this encounter Functional Status Functional Status Response Date of Assess ment Are you deaf or do you have serious difficulty h earing? No 01/29/2018 Are you blind or do you have serious difficulty seeing, even when wearing glasses? No 01/29/2018 Do you have serious difficul ty walking or climbing stairs? (5 years old or older) No 01/29/2018 Do you have difficulty dress ing or bathing? (5 years old or older) No 01/29/2018 Because of a physical, menta l, or emotional condition, do you have difficulty doing errands alone such as visiting a doctor s office or shopping? (15 years old or older) No 01/30/20 18 Cognitive Status Response Date of Assessm ent Because of a physical, menta l, or emotional condition, do you have serious difficulty concentrating, remembering, or making decisions? (5 years old or older) No 01/29/2018 documented as of this encounter Miscellaneous Notes * Telephone Encounter - Sal Walker [facility] - 04/15/2024 1:31 PM EDTSigned Prescriptions: Disp Refills Tamsulosin HCl 0.4 MG Oral Capsule (Flomax)180 Ca*3 Sig: TAKE 2 CAPSULES BY MOUTH EVERY DAYAuthorizing Provider: TREVOR FORD User: SAL WALKER documented in this encounter Plan of Treatment Upcoming Encounters Date Type Department Care Team (Late st Contact Info) Description 05/25/2024 9:30 AM EDT Imaging Radiology, [address] [place] [address] 05/25/2024 10:00 AM EDT Office Visit Rheumatology [address] [place] [address] Hardeep Lynch MD [address] [place] [address] [place] [address] 07/10/2024 2:45 PM EDT Office Visit Dermatology [facility] [address] [facility] [place] [address] Freddie Freeman MD [address] [facility] [place] [address] 11/16/2024 10:00 AM EST Office Visit Ophthalmology, [facility] [address] [facility] [place] [address] Cesar Bolaños, DO [address] [place] [address] Health Maintenance Due Date Last Done Comments Albumin/Creatinine Ratio 12/29/2021 019, 02/09/2016, 03/10/2015 *BISPHONATE OR OTHER ACCEPTABLE MEDICATION NEEDED FOR OSTEOPOROSIS (REFER TO SMARTSET #1146) 06/16/2022 Depression Monitoring 05/15/2023 05/15/2022 COVID-19 Vaccine ( season) 2023 10/17/2023, 03/23/2022, 09/12/2021, Additional history exists DXA Scan 05/15/2024 05/15/2022, 04/27, 04/14/2018, Additional history exists GFR 11/25/2024 11/25/2023, 06/29, 09/06/2022, Additional history exists DTaP,Tdap,and Td Vaccines (3 - Td or Tdap) 02/05/2033 02/05/2023, 08/30/2017, 07/06/2010 Pneumococcal Vaccine: 65+ Years Completed 10/14/2015, 07/06/2010 Zoster Vaccines Completed 12/17/2019, 09/27, 08/25/2013 VITAMIN D LEVEL ONCE IN A LIFETIME-USE SMARTSET# 54783 Completed 05/14/2022, 06/05/2021, 05/31/2020, Additional history exists Influenza Vaccine (FLU shot) Completed , 07/06/2022, 08/01/2021, Additional history exists GARDASIL-HPV IMMUNIZATION SERIES Aged Out No longer eligible based on patient's age to complete this topic Hepatitis B Aged Out No longer eligi ble based on patient's age to complete this topic MENINGOCOCCAL (MENACTRA/MENVEO) Aged Out No longer eligible based on patient's age to complete this topic documented as of this encounter Medical Devices Implanted Type Area Cement Truck Loader Device Identifier Shelf Expiration Date Model / Serial / Lot Atriclip 35mm [id number] - [id number] Implanted:Qty: 1 on 01/30/2018 by Caleb Cruz MD at OR [facility] Left: Heart ATRICURE 01/27/2020 [id number] / / [id number] Suture Steel 6 B&S19 [id number] - [id number] Implanted:Qty: 4 on 01/30/2018 by Caleb Cruz MD at OR [facility] Sternum JNJ : [employer] 08/27/2022 [id number] / / [id number] documented as of this encounter Visit Diagnoses Diagnosis BPH with obstruction/lower urinary tract symptoms Hypertrophy of prostate with urinary obstruction and other lower urinary tract symptoms (LUTS) documented in this encounter Advance Directives * Full Code (Latest Code Status on File) Date Activated Date Inactivated Comments 01/30/2018 1:47 PM 02/05/2018 5:50 PM This order re flects the patients wishes and were consensually agreed upon. Care Teams Licensed Funeral Director And Embalmer Relationship Specialty Start Date End Date Trevor Ford MD [address] [place] [address] PCP - General Family Medicine 12/10/19 documented as of this encounter
--- OUTSIDE RECORDS SUMMARY | 2024-04-25 17:20 | External Medical Summary | Summary of Care ---
Author Name Unknown Organization [facility] Address [address] [place] [address] Phone [phone] Care Team Providers Care Mold Swabber Name Role Phone Demi Castorena MD Primary Care Provider Mac serivn Encounter Details Date Type Department Care Team (Latest Contact Info) Description 06/23/2018 9:00 AM EDT - 06/23/2018 11:59 PM EDT Hospital Encounter Radiology Film File [address] [place] [address] Discharge Disposition: Home - Self Care Allergies Active Allergy Reactions Criticality Noted Date Comments Pollen 05/31/2016 Dust,mold documented as of this encounter (statuses as of 03/17/2024) Medications Medication Sig Dispensed Refills Start Date End Date Status NEXIUM 40 MG PO CPDR Take one capsule by mouth one time daily 30 Cap 5 11/03/2014 Active Calcium Carb-Cholecalciferol (CALCIUM + D3) 600-200 MG-UNIT per tablet Take 2 Tablets by mouth in the morning. Active documented as of this encounter (statuses as of 03/17/2024) Active Problems Problem Noted Date Diagnosed Date [...] 06/19/2018 DDD (degenerative disc disease), lumbar 04/14/20 18 Coronary artery disease invo lving [place] coronary artery of [place] heart without angina pectoris 03/13/2018 S/P CABG x 4 12/12/2017 Hx of actinic keratosis 06/04/2017 BPH with obstruction/lower urinary tract symptom s 04/11/2017 Primary osteoarthritis of both hands 04/01/2017 Senile osteoporosis 10/03/2016 Gastroesophageal reflux disease with esophagitis 02/08/2016 snf current use of systemic steroids 11/07 Dyslipidemia Polymyalgia rheumatica Overview: Dr Sevilla HLA-B27 spondyloarthropathy documented as of this encounter (statuses as of 03/17/2024) Resolved Problems Problem Noted Date Diagnosed Date [...] system(788.99) 07/06/2010 03/02/2013 Epistaxis 11/09/2009 08/25/2013 Other esophagitis 02/08/2016 Overview: barretts-onPPI Benign localized hyperplasia of prostate without urinary obstruction and other lower urinary tract symptoms (LUTS) 10/11/2016 HTN, goal below 150/90 06/19 Dry eyes, bilateral 10/11/20 16 HLA B27 (HLA B27 positive) 1 12/12/2015 documented as of this encounter (statuses as of 03/17/2024) Immunizations Name Administration Dates Next Due Pneumococcal Conjugate Vacc, 13 Valent (Prevnar) 10/14/2015 Pneumococcal Polysaccharide PPV23 (Pneumovax) 07/06/2010 Seasonal Influenza, Split, I IV3, With Preserve, Inj 08/15/2016,06/30/2015,07/15/2014,08/25,07/17/2012,07/17/2011,07/28/2010 Seasonal Influenza, Trivalen t, High Dose, No Preserve, IM 08/20/2017 TD, Preservative Free 07/06/2010 TDAP (age 10 and older)(Boostrix) 08/30/2017 Varicella Zoster Vaccine (Adult) 08/25/2013 documented as of this encounter Social History Tobacco Use Types Packs/Day Years Used Date Smoking Tobacco: Former Cigarettes 0.5 30 0 10/28/1961 - 10/28/1991 Pipe Smokeless [...] money to get more. Never true 07/25/2023 Sex and Gender Information Value Date Recorded Sex Assigned at Not on file Gender Identity Not on file Sexual Orientation Not on file Job Start Date Occupation Industry Not on file Not on file Not on file COVID-19 Exposure Response Date Recorded In the last month, have you been in contact with someone who was confirmed or suspected to have Coronavirus / COVID-19? No / Unsure 06/09/2020 9:32 AM EDT documented as of this encounter Functional Status [...] No 01/29/2018 documented as of this encounter Plan of Treatment Upcoming Encounters Date Type Department Care Team (Late st Contact Info) Description 05/25/2024 9:30 AM EDT Imaging Radiology, [address] [place] [address] 05/25/2024 10:00 AM EDT Office Visit Rheumatology [address] [place] [address] Hardeep Lynch MD [address] [place] [address] [place] [address] 07/10/2024 2:45 PM EDT Office Visit Dermatology [facility] [address] [facility] [place] [address] Freddie Freeman MD [address] [facility] [place] [address] Health Maintenance Due Date Last Done Comments Albumin/Creatinine Ratio 12/29/2021 019, 02/09/2016, 03/10/2015 *BISPHONATE OR OTHER ACCEPTABLE MEDICATION NEEDED FOR OSTEOPOROSIS (REFER TO SMARTSET #1146) 06/16/2022 DXA Scan 05/15/2024 05/15/2022, 04/27, 04/14/2018, Additional history exists GFR 11/25/2024 11/25/2023, 06/29, 09/06/2022, Additional history exists DTaP,Tdap,and Td Vaccines (3 - Td or Tdap) 02/05/2033 02/05/2023, 08/30/2017, 07/06/2010 Pneumococcal Vaccine: 65+ Years Completed 10/14/2015, 07/06/2010 Zoster Vaccines Completed 12/17/2019, 09/27, 08/25/2013 VITAMIN D LEVEL ONCE IN A LIFETIME-USE SMARTSET# [id number] Completed 05/14/2022, 06/05/2021, 05/31/2020, Additional history exists Influenza Vaccine (FLU shot) Completed , 07/06/2022, 08/01/2021, Additional history exists COVID-19 Vaccine Completed 10/17/2023, , 09/12/2021, Additional history exists GARDASIL-HPV IMMUNIZATION SERIES Aged Out No longer eligible based on patient's age to complete this topic Hepatitis B Aged Out No longer eligi ble based on patient's age to complete this topic MENINGOCOCCAL (MENACTRA/MENVEO) Aged Out No longer eligible based on patient's age to complete this topic documented as of this encounter Medical Devices Implanted Type Area Armored Car Messenger Device Identifier Shelf Expiration Date Model / Serial / Lot Atriclip 35mm [id number] - [id number] Implanted:Qty: 1 on 01/30/2018 by Caleb Cruz MD at OR [facility] Left: Heart ATRICURE 01/27/2020 [id number] / / [id number] Suture Steel 6 B&S19 M654g - [id number] Implanted:Qty: 4 on 01/30/2018 by Caleb Cruz MD at OR [facility] Sternum JNJ : [employer] 08/27/2022 [id number] / / [id number] documented as of this encounter Procedures Procedure Name Priority Date/Time Associated Diagnosis Comments RADIOLOGY EXAM - GENERAL RAD (IMAGES ONLY,NO REPORT) Routine 06/23/2018 9:00 AM EDT documented in this encounter Results * RADIOLOGY EXAM - GENERAL RAD (IMAGES ONLY,NO REPORT) (06/23/2018 9:00 AM EDT) 06/23/2018 8:58 AM EDT Narrative Scheduling, Silent - 03/16/2024 12:50 PM EDT This is an imaging study not interpreted or resulted by a [facility] or [facility] contracted radiologist. [facility] (RAD G ENERAL) documented in this encounter Advance Directives * Full Code (Latest Code Status on File) Date Activated Date Inactivated Comments 01/30/2018 1:47 PM 02/05/2018 5:50 PM This order re flects the patients wishes and were consensually agreed upon. Care Teams Mold Swabber Relationship Specialty Start Date End Date Demi Castorena MD PCP - General Family Medicine 05/20/18 11/02/19 documented as of this encounter
--- OUTSIDE RECORDS SUMMARY | 2024-04-25 17:20 | External Medical Summary | Summary of Care ---
Author Name Unknown Organization [facility] Address [address] [place] [address] Phone [phone] Care Team Providers Care Software Applications Developer Name Role Phone Nikita Brady MD Primary Care Provider [phone] Encounter Details Date Type Department Care Team (Latest Contact Info) Description 11/25/2023 4:00 PM EST - 11/25/2023 11:59 PM EST Hospital Encounter Radiology Film File [address] [place] [address] Discharge Disposition: Home - Self Care Allergies Active Allergy Reactions Criticality Noted Date Comments Pollen 05/31/2016 Dust,mold documented as of this encounter (statuses as of 03/17/2024) Medications Medication Sig Dispensed Refills Start Date End Date Status NEXIUM 40 MG PO CPDR Take one capsule by mouth one time daily 30 Cap 5 11/03/2014 Active Calcium Carb-Cholecalcifer ol (CALCIUM + D3) 600-200 MG-UNIT per tablet Take 2 Tablets by mouth in the morning. Active Magnesium Oxide 400 MG CapsuleIndications :Paroxysmal atrial fibrillation (HCC),AVNRT (AV bia re-entry tachycardia) (HCC),Coronary artery disease involving [place] coronary artery of [place] heart without angina pectoris Take 1 Cap by mouth daily. 30 Cap 5 09/28/2019 Active Aspirin 81 MG Oral Tablet ChewableIndication s:Paroxysmal atrial fibrillation (HCC) Take 1 Tablet by mouth in the morning. 02/23/2021 Active oxyCODONE HCl 5 MG Oral Tablet (Oxy IR) Take 1 Tablet by mouth every 8 hours as needed. For pain. 01/15/2023 Active Lidocaine 4 % External Patch (Aspercreme) Place 1 Patch topically on the skin daily. 30 Patch 01/25/2023 Active Hyoscyamine Sulfate ER 0.375 MG Oral Tablet Extended Release 12 Hour (Levbid) Take 1 Tablet by mouth 2 times a day as needed for Cramping. For abdominal pain. Do not cut, crush or chew 60 Tablet 2 02/06/2023 Active Tamsulosin HCl 0.4 MG Oral Capsule (Flomax)Indication s:BPH with obstruction/lower urinary tract symptoms TAKE 2 CAPSULES BY MOUTH EVERY DAY 180 Capsule 3 04/25/2023 Active Lisinopril 5 MG Oral Tablet (Prinivil) 02/12/2023 Active Baclofen 10 MG Oral Tablet (Lioresal) TAKE 1 TABLET BY MOUTH EVERYDAY AT BEDTIME 90 Tablet 3 06/28/2023 Active Sotalol HCl 120 MG Oral TabletIndications: Paroxysmal atrial fibrillation (HCC),AVNRT (AV bia re-entry tachycardia) (HCC) TAKE 1 TABLET BY MOUTH TWICE A DAY 180 Tablet 3 07/03/2023 Active traMADol HCl 50 MG Oral Tablet (Ultram)Indication s:Fall at home, sequela Take 1 Tablet by mouth every 6 hours as needed for Pain, Severe. 30 Tablet 07/30/2023 Active Nirmatrelvir&Riton avir 300/100 20 x 150 MG & 10 x 100MG Oral Tablet Therapy Pack (Paxlovid) Take 2 pink tablets of Nirmatrelvir and 1 white tablet of Ritonavir two times a day by mouth. 30 Tablet 08/30/2023 Active Additional Information Patient not taking.Reported on 10/07/2023 Nitroglycerin 0.2% rectal ointment Administer into the rectum 2 times a day. 30 g 09/02/2023 Active Additional Information Patient not taking.Reported on 10/07/2023 Hydrocortisone Acetate 25 MG Rectal Suppository (Anusol-HC) Administer into the rectum 2 times a day in the morning and at bedtime as needed for Hemorrhoids. Up to 2 weeks. 24 Suppository 1 09/03/2023 Active Gabapentin 100 MG Oral Capsule (Neurontin)Indicat ions:Post herpetic neuralgia TAKE 3 CAPS BY MOUTH TWICE DAILY 540 Capsule 1 09/29/2023 Active Atorvastatin Calcium 40 MG Oral Tablet (Lipitor)Indicatio ns:Dyslipidemia TAKE 1 TABLET BY MOUTH EVERY DAY 90 Tablet 3 10/17/2023 Active documented as of this encounter (statuses [...] 04/14/20 18 Coronary artery disease invo lving [place] coronary artery of [place] heart without angina pectoris 03/13/2018 S/P CABG x 4 12/12/2017 Hx of actinic keratosis 06/04/2017 BPH with obstruction/lower urinary tract symptom s 04/11/2017 Primary osteoarthritis of both hands 04/01/2017 Senile osteoporosis 10/03/2016 Gastroesophageal reflux disease with 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 11/07 Dyslipidemia [...] 03/17/2024) Immunizations Name Administration Dates Next Due COVID-19 mRNA, LNP-s, No Pre serve, 2-Dose Series (Pfizer) 09/12/2021,01/25/2021,12/28/2020 Pneumococcal Conjugate Vacc, 13 Valent (Prevnar) [...] Description 05/25/2024 9:30 AM EDT Imaging Radiology, [place] [address] [place] [address] 05/25/2024 10:00 AM EDT Office Visit Rheumatology [facility] [place] [address] [address] Hardeep Lynch MD [address] [place] [address] 07/10/2024 2:45 PM EDT Office Visit Dermatology [facility] [place] [address] [place] [address] Freddie Freeman MD [address] [place] [address] Health Maintenance Due Date Last Done Comments [...] D LEVEL ONCE IN A LIFETIME-USE SMARTSET# [id number] Completed 05/14/2022, 06/05/2021, 05/31/2020, Additional history exists [...] this encounter Medical Devices Implanted Type Area Grocery Worker Device Identifier Shelf Expiration Date Model / Serial / Lot Atriclip 35mm [id number] - [id number] Implanted:Qty: 1 on 01/30/2018 by Caleb Cruz MD at [place] [facility] Left: Heart ATRICURE 01/27/2020 [id number] / / [id number] Suture Steel 6 B&S19 M654g - [id number] Implanted:Qty: 4 on 01/30/2018 by Caleb Cruz MD at [place] [facility] Sternum JNJ : [employer] 08/27/2022 [id number] / / [id number] documented as of this encounter Procedures Procedure Name Priority Date/Time Associated Diagnosis Comments RADIOLOGY EXAM - GENERAL RAD (IMAGES ONLY,NO REPORT) Routine 11/25/2023 4:00 PM EST documented in this encounter Results * RADIOLOGY EXAM - GENERAL RAD (IMAGES ONLY,NO REPORT) (11/25/2023 4:00 PM EST) 11/25/2023 3:57 PM EST Narrative Scheduling, Silent - 03/16/2024 12:37 PM EDT This is an imaging study not interpreted or resulted by a [facility] or [employer] contracted radiologist. Zully VELEZ RADIOLOGY (RAD G ENERAL) documented in this encounter Advance Directives * Full Code (Latest Code Status on File) Date Activated Date Inactivated Comments 01/30/2018 1:47 PM 02/05/2018 5:50 PM This order r eflects the patients wishes and were consensually agreed upon. Care Teams Software Applications Developer Relationship Specialty Start Date End Date Nikita Brady MD [address] [address] PCP - General Family Medicine 12/10/19 documented as of this encounter
--- OUTSIDE RECORDS SUMMARY | 2024-04-25 17:20 | External Medical Summary | Summary of Care ---
Author Name Unknown Organization [facility] Address [address] [place] [address] Phone [phone] Care Team Providers Care Renewable Energy Engineer Name Role Phone Nikita Brady MD Primary Care Provider [phone] Encounter Details Date Type Department Care Team (Late st Contact Info) Description 04/20/2024 Orders Only Outcomes Research Department [address] [place] [address] Lisbet Kim CHRA [email or web address] Research Other*[id number] Allergies Active Allergy Reactions Criticality Noted Date Comments Pollen 05/31/2016 Dust,mold documented as of this encounter (statuses as of 04/20/2024) Medications Medication Sig Dispensed Refills Start Date [...] bia re-entry tachycardia) (HCC),Coronary artery disease involving [place] coronary artery of [place] heart without angina pectoris Take 1 Cap [...] or chew 60 Tablet 2 02/06/2023 Active Lisinopril 5 MG Oral Tablet (Prinivil) [...] EVERY DAY 90 Tablet 3 10/17/2023 Active Amoxicillin-Pot Clavulanate 875-125 MG Oral Tablet (Augmentin) Take 1 Tablet by mouth in the morning and 1 Tablet before bedtime. 11/25/2023 Active Furosemide 20 MG Oral Tablet (Lasix)Indications :Pleural effusion, left TAKE ONE TABLET BY MOUTH DAILY IN MORNING ON MONDAYS, WEDNESDAYS, FRIDAYS, SATURDAYS 48 Tablet 3 12/16/2023 Active Ezetimibe 10 MG Oral Tablet (Zetia)Indications :Dyslipidemia TAKE 1 TABLET BY MOUTH EVERY DAY 90 Tablet 3 01/20/2024 Active DULoxetine HCl 60 MG Oral Capsule Delayed Release Particles (Cymbalta)Indicati ons:Adjustment disorder with depressed mood TAKE 2 CAPSULES BY MOUTH EVERY DAY 180 Capsule 3 01/19/2024 Active Tamsulosin HCl 0.4 MG Oral Capsule (Flomax)Indication s:BPH with obstruction/lower urinary tract symptoms TAKE 2 CAPSULES BY MOUTH EVERY DAY 180 Capsule 3 04/15/2024 Active documented as of this encounter (statuses as of 04/20/2024) Active Problems Problem Noted Date Diagnosed Date [...] 04/14/20 18 Coronary artery disease invo lving [place] coronary artery of [place] heart without angina pectoris 03/13/2018 S/P CABG x 4 12/12/2017 Hx of actinic keratosis 06/04/2017 BPH with obstruction/lower urinary tract symptom s 04/11/2017 Primary osteoarthritis of both hands 04/01/2017 Senile osteoporosis 10/03/2016 Gastroesophageal reflux disease with esophagitis 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 11/07 Dyslipidemia Polymyalgia rheumatica Overview: Dr [place] HLA-B27 spondyloarthropathy documented as of this encounter (statuses as of 04/20/2024) Resolved Problems Problem Noted Date Diagnosed Date [...] as of this encounter (statuses as of 04/20/2024) Immunizations Name Administration Dates Next Due COVID-19 mRNA, LNP-s, No Pre serve, 2-Dose Series (Dacuda) 09/12/2021,01/25/2021,12/28/2020 Pneumococcal Conjugate Vacc, 13 Valent (Prevnar) [...] 18 years and over) Not on file Are you (or your family) sheri eless [...] Description 05/25/2024 9:30 AM EDT Imaging Radiology, [place] [address] [place] [address] 05/25/2024 10:00 AM EDT Office Visit Rheumatology [facility] [place] [address] [address] Hardeep Lynch MD [facility] [place] [address] 07/10/2024 2:45 PM EDT Office Visit Dermatology [facility] [place] [address] [place] [address] Freddie Freeman MD [address] [place] [address] 11/16/2024 10:00 AM EST Office Visit Ophthalmology, [facility] [address] [place] [address] Cesar Bolaños, DO [address] [facility] [place] [address] Scheduled Orders Name Type Priority Associated Diagnoses Orde r Schedule MYCODE SUBSEQUENT ADULT Lab Routine My[employer] Research Other*[id number] Every 6 Months for 2 Occurrences starting 04/20/2024 until 05/10/2025 Health Maintenance Due Date Last Done Comments [...] D LEVEL ONCE IN A LIFETIME-USE SMARTSET# [id number] Completed 05/14/2022, 06/05/2021, 05/31/2020, Additional history exists [...] this encounter Medical Devices Implanted Type Area Marketing Production Coordinator Device Identifier Shelf Expiration Date Model / Serial / Lot Atriclip 35mm [id number] - [id number] Implanted:Qty: 1 on 01/30/2018 by Caleb Cruz MD at OR [facility] Left: Heart ATRICURE 01/27/2020 [id number] / / [id number] Suture Steel 6 B&S19 M654g - [id number] Implanted:Qty: 4 on 01/30/2018 by Caleb Cruz MD at OR [facility] Sternum JNJ : [employer] 08/27/2022 [id number] / / [id number] documented as of this encounter Visit Diagnoses Diagnosis My[employer] Research Other*[id number] documented in this encounter Advance Directives * Full Code (Latest Code Status on File) Date Activated Date Inactivated Comments 01/30/2018 1:47 PM 02/05/2018 5:50 PM This order re flects the patients wishes and were consensually agreed upon. Care Teams Renewable Energy Engineer Relationship Specialty Start Date End Date Nikita Brady MD [address] [place] [address] PCP - General Family Medicine 12/10/19 documented as of this encounter
--- OUTSIDE RECORDS SUMMARY | 2024-04-25 17:20 | External Medical Summary | Summary of Care ---
Author Name Unknown Organization [facility] Address [address] [place] [address] Phone [phone] Care Team Providers Care Iron Worker Foreman Name Role Phone Nikita Brady MD Primary Care Provider [phone] Encounter Details Date Type Department Care Team (Latest Contact Info) Description 01/14/2023 5:45 PM EDT - 01/14/2023 11:59 PM EDT Hospital Encounter Radiology Film File [address] [place] [address] Discharge Disposition: Home - Self [...] the morning. Active Magnesium Oxide 400 MG CapsuleIndications:Paro xysmal atrial fibrillation (HCC),AVNRT (AV bia re-entry tachycardia) (HCC),Coronary artery disease involving [place] coronary artery of [place] heart without angina pectoris Take 1 Cap by mouth daily. 30 Cap 5 09/28/2019 Active Aspirin 81 MG Oral Tablet ChewableIndications:Par oxysmal atrial fibrillation (HCC) Take 1 Tablet by mouth in the morning. 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 11/07 [...] Seasonal Influenza, Quadriva lent Hd (Fluzone Hd) 07/06/2022,08/01/2021 Seasonal Influenza, Split, I IV3, With Preserve, Inj 08/15/2016,06/30/2015,07/15/2014,07/29,07/17/2012,07/17/2011,07/28/20 10 Seasonal Influenza, Trivalen t, Adjuvanted, 65+ yrs 08/04/2020,07/03/2019 Seasonal Influenza, Trivalen t, High Dose, No Preserve, IM 08/20/2017 TD, Preservative Free 07/06/2010 TDAP (age 10 and older)(Boostrix) 08/30/2017 Varicella Zoster Vaccine (Adult) 08/25/2013 Zoster Vaccine [...] Description 05/25/2024 9:30 AM EDT Imaging Radiology, [place] [address] [place] [address] [place] [address] 05/25/2024 10:00 AM EDT Office Visit Rheumatology [place] [address] [place] [place] [address] Hardeep Lynch MD [facility] [place] [address] 07/10/2024 2:45 PM EDT Office Visit Dermatology [facility] [place] [address] [place] [address] Freddie Freeman MD [address] [place] [address] Health Maintenance Due Date Last Done Comments [...] D LEVEL ONCE IN A LIFETIME-USE SMARTSET# [id number] Completed 05/14/2022, 06/05/2021, 05/31/2020, Additional history exists [...] this encounter Medical Devices Implanted Type Area Cyber Security Specialist Device Identifier Shelf Expiration Date Model / Serial / Lot Atriclip 35mm [id number] - [id number] Implanted:Qty: 1 on 01/30/2018 by Caleb Cruz MD at [place] [facility] [place] Left: Heart ATRICURE 01/27/2020 [id number] / / [id number] Suture Steel 6 B&S19 M654g - [id number] Implanted:Qty: 4 on 01/30/2018 by Caleb Cruz MD at OR [facility] [place] Sternum JNJ : [employer] 08/27/2022 [id number] / / [id number] documented as of this encounter Procedures Procedure Name Priority Date/Time Associated Diagnosis Comments RADIOLOGY EXAM - CT (IMAGES ONLY, NO REPORT) Routine 01/14/2023 5:45 PM EDT documented in this encounter Results * RADIOLOGY EXAM - CT (IMAGES ONLY, NO REPORT) (01/14/2023 5:45 PM EDT) 01/14/2023 5:45 PM EDT Narrative Scheduling, Silent - 03/16/2024 12:56 PM EDT This is an imaging study not interpreted or resulted by a [facility] or [facility] contracted radiologist. Zully VELEZ RAD CT documented in this encounter Advance Directives * Full Code (Latest Code Status on File) Date Activated Date Inactivated Comments 01/30/2018 1:47 PM 02/05/2018 5:50 PM This order re flects the patients wishes and were consensually agreed upon. Care Teams Iron Worker Foreman Relationship Specialty Start Date End Date Nikita Brady MD [address] [facility] [place] [address] PCP - General Family Medicine 12/10/19 documented as of this encounter
--- OUTSIDE RECORDS SUMMARY | 2024-04-25 17:20 | External Medical Summary | Summary of Care ---
Author Name Unknown Organization [facility] Address [address] [place] [address] Phone [phone] Care Team Providers Care Installment Account Checker Name Role Phone Nikita Brady MD Primary Care Provider [phone] Encounter Details Date Type Department Care Team (Latest Contact Info) Description 07/15/2022 10:10 AM EDT - 07/15/2022 11:59 PM EDT Hospital Encounter Radiology Film File [address] [place] [address] Discharge Disposition: Home - Self [...] bia re-entry tachycardia) (HCC),Coronary artery disease involving [place] coronary artery of [place] heart without angina pectoris Take 1 Cap [...] lumbar 04/14/20 Coronary artery disease invo lving [place] coronary artery of [place] heart without angina pectoris 03/13/2018 S/P CABG x 4 12/12/2017 Hx of actinic keratosis 06/04/2017 BPH with obstruction/lower urinary tract symptom s 04/11/2017 Primary osteoarthritis of both hands 04/01/2017 Senile osteoporosis 10/03/2016 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 [address] [place] [address] 07/10/2024 2:45 PM EDT Office Visit Dermatology [facility] [place] [address] [place] [address] Freddie Freeman MD [address] [place] [address] Health Maintenance Due Date Last Done Comments [...] D LEVEL ONCE IN A LIFETIME-USE SMARTSET# [id number] Completed 05/14/2022, 06/05/2021, 05/31/2020, Additional history exists [...] this encounter Medical Devices Implanted Type Area Single Pass Soil Stabilizer Operator Device Identifier Shelf Expiration Date Model / Serial / Lot Atriclip 35mm [id number] - [id number] Implanted:Qty: 1 on 01/30/2018 by Caleb Cruz MD at OR [facility] [place] Left: Heart ATRICURE 01/27/2020 [id number] / / [id number] Suture Steel 6 B&S19 M654g - [id number] Implanted:Qty: 4 on 01/30/2018 by Caleb Cruz MD at OR [facility] [place] Sternum JNJ : [employer] 08/27/2022 [id number] / / [id number] documented as of this encounter Procedures Procedure Name Priority Date/Time Associated Diagnosis Comments RADIOLOGY EXAM - CT (IMAGES ONLY, NO REPORT) Routine 07/15/2022 10:10 AM EDT documented in this encounter Results * RADIOLOGY EXAM - CT (IMAGES ONLY, NO REPORT) (07/15/2022 10:10 AM EDT) 07/15/2022 10:0 7 AM EDT Narrative Scheduling, Silent - 03/16/2024 12:59 PM EDT This is an imaging study not interpreted or resulted by a [facility] or [email or web address] radiologist. Zully VELEZ RAD CT documented in this encounter Advance Directives * Full Code (Latest Code Status on File) Date Activated Date Inactivated Comments 01/30/2018 1:47 PM 02/05/2018 5:50 PM This order re flects the patients wishes and were consensually agreed upon. Care Teams Installment Account Checker Relationship Specialty Start Date End Date Nikita Brayd MD [address] [facility] [place] [address] PCP - General Family Medicine 12/10/19 documented as of this encounter
--- OUTSIDE RECORDS SUMMARY | 2024-04-25 17:20 | External Medical Summary | Summary of Care ---
Author Name Unknown Organization [facility] Address [address] [place] [address] Phone [phone] Care Team Providers Care Tree Trimming Supervisor Name Role Phone Demi Castorena MD Primary Care Provider Mac servin Encounter Details Date Type Department Care Team (Latest Contact Info) Description 12/24/2018 8:25 AM EST - 12/24/2018 11:59 PM EST Hospital Encounter Radiology Film File [address] [place] [address] Discharge Disposition: Home - Self [...] 04/14/20 18 Coronary artery disease invo lving [place] coronary artery of [place] heart without angina pectoris 03/13/2018 S/P CABG x 4 12/12/2017 Hx of actinic keratosis 06/04/2017 BPH with obstruction/lower urinary tract symptom s 04/11/2017 Primary osteoarthritis of both hands 04/01/2017 Senile osteoporosis 10/03/2016 Gastroesophageal reflux disease with esophagitis 02/08/2016 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 current use of systemic steroids 11/07 Dyslipidemia [...] Pneumococcal Polysaccharide PPV23 (Pneumovax) 07/06/2010 Seasonal Influenza, PF, 6 M & above, IM , (FluLaval or Fluzone) 08/22/2018 Seasonal Influenza, Split, I IV3, With Preserve, [...] Description 05/25/2024 9:30 AM EDT Imaging Radiology, [address] [place] [address] 05/25/2024 10:00 AM EDT Office Visit Rheumatology [address] [place] [address] Hardeep Lynch MD [address] [place] [address] [place] [address] 07/10/2024 2:45 PM EDT Office Visit Dermatology [facility] [address] [facility] [place] [address] Freddie Freeman MD [address] [facility] [place] [address] Health Maintenance Due Date Last Done Comments [...] D LEVEL ONCE IN A LIFETIME-USE SMARTSET# [id number] Completed 05/14/2022, 06/05/2021, 05/31/2020, Additional history exists [...] this encounter Medical Devices Implanted Type Area Refrigerated National Truck Driver Device Identifier Shelf Expiration Date Model / Serial / Lot Atriclip 35mm [id number] - [id number] Implanted:Qty: 1 on 01/30/2018 by Caleb Cruz MD at [place] [facility] Left: Heart ATRICURE 01/27/2020 [id number] / / [id number] Suture Steel 6 B&S19 M654g - [id number] Implanted:Qty: 4 on 01/30/2018 by Caleb Cruz MD at OR [facility] Sternum JNJ : [employer] 08/27/2022 M654G / / [id number] documented as of this encounter Procedures Procedure Name Priority Date/Time Associated Diagnosis Comments RADIOLOGY EXAM - GENERAL RAD (IMAGES ONLY,NO REPORT) Routine 12/24/2018 8:25 AM EST documented in this encounter Results * RADIOLOGY EXAM - GENERAL RAD (IMAGES ONLY,NO REPORT) (12/24/2018 8:25 AM EST) 12/24/2018 8:22 AM EST Narrative Scheduling, Silent - 03/16/2024 12:33 PM EDT This is an imaging study not interpreted or resulted by a [facility] or [employer] contracted radiologist. Zully VELEZ RADIOLOGY (RAD G ENERAL) documented in this encounter Advance Directives * Full Code (Latest Code Status on File) Date Activated Date Inactivated Comments 01/30/2018 1:47 PM 02/05/2018 5:50 PM This order re flects the patients wishes and were consensually agreed upon. Care Teams Tree Trimming Supervisor Relationship Specialty Start Date End Date Demi Castorena MD PCP - General Family Medicine 05/20/18 11/02/19 documented as of this encounter
--- OUTSIDE RECORDS SUMMARY | 2024-04-25 17:20 | External Medical Summary | Summary of Care ---
Author Name Unknown Organization [facility] Address [address] [place] [address] Phone [phone] Care Team Providers Care Fiberglass Bonding Machine Tender Name Role Phone Nikita Brady MD Primary Care Provider [phone] Encounter Details Date Type Department Care Team (Latest Contact Info) Description 08/07/2023 3:20 AM EDT - 08/07/2023 11:59 PM EDT Hospital Encounter Radiology Film File [address] [place] [address] Discharge Disposition: Home - Self [...] the morning. Active Magnesium Oxide 400 MG CapsuleIndications:P aroxysmal atrial fibrillation (HCC),AVNRT (AV bia re-entry tachycardia) (HCC),Coronary artery disease involving [place] coronary artery of [place] heart without angina pectoris Take 1 Cap by mouth daily. 30 Cap 5 09/28/2019 Active Aspirin 81 MG Oral Tablet ChewableIndications: Paroxysmal atrial fibrillation (HCC) Take 1 Tablet by [...] Active Tamsulosin HCl 0.4 MG Oral Capsule (Flomax)Indications: BPH with obstruction/lower urinary tract symptoms TAKE 2 CAPSULES BY MOUTH EVERY DAY 180 Capsule 3 04/25/2023 Active Lisinopril 5 MG Oral Tablet (Prinivil) 02/12/2023 Active Baclofen 10 MG Oral Tablet (Lioresal) TAKE 1 TABLET BY MOUTH EVERYDAY AT BEDTIME 90 Tablet 3 06/28/2023 Active Sotalol HCl 120 MG Oral TabletIndications:Pa roxysmal atrial fibrillation (HCC),AVNRT (AV bia re-entry tachycardia) (HCC) TAKE 1 TABLET BY MOUTH TWICE A DAY 180 Tablet 3 07/03/2023 Active traMADol HCl 50 MG Oral Tablet (Ultram)Indications: Fall at home, sequela Take 1 Tablet by mouth every 6 hours as needed for Pain, Severe. 30 Tablet 07/30/2023 Active documented as of this encounter (statuses [...] 04/14/20 18 Coronary artery disease invo lving [place] coronary artery of [place] heart without angina pectoris 03/13/2018 S/P CABG x 4 12/12/2017 Hx of actinic keratosis 06/04/2017 BPH with obstruction/lower urinary tract symptom s 04/11/2017 Primary osteoarthritis of both hands 04/01/2017 Senile osteoporosis 10/03/2016 Gastroesophageal reflux disease with esophagitis 02/08/2016 [employer] current use of systemic steroids 11/07 Dyslipidemia [...] mRNA, LNP-s, No Pre serve, 2-Dose Series ([employer]) 09/12/2021,01/25/2021,12/28/2020 Pneumococcal Conjugate Vacc, 13 Valent (Prevnar) [...] (15 years old or older) No 01/30/20 Cognitive Status Response Date of Assessm ent Because of a physical, menta l, or emotional condition, do you have serious difficulty concentrating, remembering, or making decisions? (5 years old or older) No 01/29/2018 documented as of this encounter Plan of Treatment Upcoming Encounters Date Type Department Care Team (Late st Contact Info) Description 05/25/2024 9:30 AM EDT Imaging Radiology, [address] [place] [address] 05/25/2024 10:00 AM EDT Office Visit Rheumatology [address] [place] [address] Hardeep Lynch MD [address] [place] [address] [place] [address] 07/10/2024 2:45 PM EDT Office Visit Dermatology [facility] [address] [facility] [place] [address] Freddie Freeman MD [address] [facility] [place] [address] Health Maintenance Due Date Last Done Comments [...] D LEVEL ONCE IN A LIFETIME-USE SMARTSET# [id number] Completed 05/14/2022, 06/05/2021, 05/31/2020, Additional history exists [...] this encounter Medical Devices Implanted Type Area Operations Specialist Device Identifier Shelf Expiration Date Model / Serial / Lot Atriclip 35mm [id number] - [id number] Implanted:Qty: 1 on 01/30/2018 by Caleb Cruz MD [place] [facility] [place]: Heart ATRICURE 01/27/2020 [id number] / / [id number] Suture Steel 6 B&S19 M654g - [id number] Implanted:Qty: 4 on 01/30/2018 by Caleb Cruz MD [place] [facility] [place] Sternum JNJ : [employer] 08/27/2022 [id number] / / [id number] documented as of this encounter Procedures Procedure Name Priority Date/Time Associated Diagnosis Comments RADIOLOGY EXAM - GENERAL RAD (IMAGES ONLY,NO REPORT) Routine 08/07/2023 3:20 AM EDT documented in this encounter Results * RADIOLOGY EXAM - GENERAL RAD (IMAGES ONLY,NO REPORT) (08/07/2023 3:20 AM EDT) 08/07/2023 3:17 AM EDT Narrative Scheduling, Silent - 03/16/2024 12:43 PM EDT This is an imaging study not interpreted or resulted by a [facility] or [facility] contracted radiologist. [facility] (RAD G ENERAL) documented in this encounter Advance Directives * Full Code (Latest Code Status on File) Date Activated Date Inactivated Comments 01/30/2018 1:47 PM 02/05/2018 5:50 PM This order re flects the patients wishes and were consensually agreed upon. Care Teams Fiberglass Bonding Machine Tender Relationship Specialty Start Date End Date Nikita Brady MD [address] [place] [address] PCP - General Family Medicine 12/10/19 documented as of this encounter
--- OUTSIDE RECORDS SUMMARY | 2024-04-25 17:20 | External Medical Summary | Summary of Care ---
Author Name Unknown Organization [facility] Address [address] [place] [address] Phone [phone] Care Team Providers Care Wellness Program Administrator Name Role Phone Demi Castorena MD Primary Care Provider Mac servin Encounter Details Date Type Department Care Team (Latest Contact Info) Description 06/20/2018 9:10 AM EDT - 06/20/2018 11:59 PM EDT Hospital Encounter Radiology Film File [address] [place] [address] Discharge Disposition: Home - Self [...] 04/14/20 18 Coronary artery disease invo lving [place] coronary artery of [place] heart without angina pectoris 03/13/2018 S/P CABG x 4 12/12/2017 Hx of actinic keratosis 06/04/2017 BPH with obstruction/lower urinary tract symptom s 04/11/2017 Primary osteoarthritis of both hands 04/01/2017 Senile osteoporosis 10/03/2016 Gastroesophageal reflux disease with esophagitis 02/08/2016 [facility] current use of systemic steroids 11/07 Dyslipidemia [...] Description 05/25/2024 9:30 AM EDT Imaging Radiology, [address] [place] [address] 05/25/2024 10:00 AM EDT Office Visit Rheumatology [address] [place] [address] Hardeep Lynch MD [address] [place] [address] [place] [address] 07/10/2024 2:45 PM EDT Office Visit Dermatology [facility] 200 [facility] [place] [address] Freddie Freeman MD 200 [facility] [place] [address] Health Maintenance Due Date Last Done Comments [...] D LEVEL ONCE IN A LIFETIME-USE SMARTSET# [id number] Completed 05/14/2022, 06/05/2021, 05/31/2020, Additional history exists [...] this encounter Medical Devices Implanted Type Area Litigation Specialist Device Identifier Shelf Expiration Date Model / Serial / Lot Atriclip 35mm [id number] - [id number] Implanted:Qty: 1 on 01/30/2018 [place] [facility] [place] Heart ATRICURE 01/27/2020 [id number] / / [id number] Suture Steel 6 B&S19 M654g - [id number] Implanted:Qty: 4 on 01/30/2018 [place] Caleb Cruz [place] [facility] [place]um JNJ : [employer] 08/27/2022 [id number] / / [id number] documented as of this encounter Procedures Procedure Name Priority Date/Time Associated Diagnosis Comments RADIOLOGY EXAM - GENERAL RAD (IMAGES ONLY,NO REPORT) Routine 06/20/2018 9:10 AM EDT documented in this encounter Results * RADIOLOGY EXAM - GENERAL RAD (IMAGES ONLY,NO REPORT) (06/20/2018 9:10 AM EDT) 06/20/2018 9:07 AM EDT Narrative Scheduling, Silent - 03/16/2024 12:48 PM EDT This is an imaging study not interpreted or resulted by a [facility] or [employer] contracted radiologist. [facility] (RAD G ENERAL) documented in this encounter Advance Directives * Full Code (Latest Code Status on File) Date Activated Date Inactivated Comments 01/30/2018 1:47 PM 02/05/2018 5:50 PM This order re flects the patients wishes and were consensually agreed upon. Care Teams Wellness Program Administrator Relationship Specialty Start Date End Date Demi Castorena MD PCP - General Family Medicine 05/20/18 11/02/19 documented as of this encounter
--- OUTSIDE RECORDS SUMMARY | 2024-04-25 17:20 | External Medical Summary | Summary of Care ---
Author Name Unknown Organization [facility] Address [address] [place] [address] Phone [phone] Care Team Providers Care University Dean Name Role Phone Nikita Brady MD Primary Care Provider [phone] Encounter Details Date Type Department Care Team (Latest Contact Info) Description 05/11/2018 12:05 AM EDT - 05/11/2018 12:49 AM EDT Hospital Encounter Radiology Film File [address] [place] [address] Discharge Disposition: Home - Self [...] 04/14/20 18 Coronary artery disease invo lving [place] coronary artery of [place] heart without angina pectoris 03/13/2018 S/P CABG x 4 12/12/2017 Hx of actinic keratosis 06/04/2017 BPH with obstruction/lower urinary tract symptom s 04/11/2017 Primary osteoarthritis of both hands 04/01/2017 Senile osteoporosis 10/03/2016 Gastroesophageal reflux disease with esophagitis 02/08/2016 [facility] current use of systemic steroids 11/07 Dyslipidemia [...] Description 05/25/2024 9:30 AM EDT Imaging Radiology, [address] [place] [address] 05/25/2024 10:00 AM EDT Office Visit Rheumatology [address] [place] [address] Hardeep Lynch MD [address] [place] [address] [place] [address] 07/10/2024 2:45 PM EDT Office Visit Dermatology [facility] 200 [facility] [place] [address] Freddie Freeman MD 200 [facility] [place] [address] Health Maintenance Due Date Last Done Comments [...] D LEVEL ONCE IN A LIFETIME-USE SMARTSET# [id number] Completed 05/14/2022, 06/05/2021, 05/31/2020, Additional history exists [...] this encounter Medical Devices Implanted Type Area Online Merchandiser Device Identifier Shelf Expiration Date Model / Serial / Lot Atriclip 35mm [id number] - [id number] Implanted:Qty: 1 on 01/30/2018 by Caleb Cruz MD at [place] [facility] [place] Left: Heart ATRICURE 01/27/2020 [id number] / / [id number] Suture Steel 6 B&S19 M654g - [id number] Implanted:Qty: 4 on 01/30/2018 by Caleb Cruz MD at OR [facility] [place] Sternum JNJ : [employer] 08/27/2022 [id number] / / [id number] documented as of this encounter Procedures Procedure Name Priority Date/Time Associated Diagnosis Comments RADIOLOGY EXAM - GENERAL RAD (IMAGES ONLY,NO REPORT) Routine 05/11/2018 12:05 AM EDT documented in this encounter Results * RADIOLOGY EXAM - GENERAL RAD (IMAGES ONLY,NO REPORT) (05/11/2018 12:05 AM EDT) 05/11/2018 12:0 1 AM EDT Narrative Scheduling, Silent - 03/16/2024 12:52 PM EDT This is an imaging study not interpreted or resulted by a [employer] or [employer] contracted radiologist. [facility] (RAD G ENERAL) documented in this encounter Advance Directives * Full Code (Latest Code Status on File) Date Activated Date Inactivated Comments 01/30/2018 1:47 PM 02/05/2018 5:50 PM This order re flects the patients wishes and were consensually agreed upon. Care Teams University Dean Relationship Specialty Start Date End Date Nikita Brady MD PCP - General Family Medicine 10/02/16 05/19/18 documented as of this encounter
--- OUTSIDE RECORDS SUMMARY | 2024-04-25 17:20 | External Medical Summary | Summary of Care ---
Author Name Unknown Organization [facility] Address [address] [place] [address] Phone [phone] Care Team Providers Care Community Development Worker Name Role Phone Demi Castorena MD Primary Care Provider Mac servin Encounter Details Date Type Department Care Team (Latest Contact Info) Description 04/14/2019 9:30 AM EDT - 04/14/2019 11:59 PM EDT Hospital Encounter Radiology Film File [address] [place] [address] Discharge Disposition: Home - Self [...] 04/14/20 18 Coronary artery disease invo lving [place] coronary artery of [place] heart without angina pectoris 03/13/2018 S/P CABG x 4 12/12/2017 Hx of actinic keratosis 06/04/2017 BPH with obstruction/lower urinary tract symptom s 04/11/2017 Primary osteoarthritis of both hands 04/01/2017 Senile osteoporosis 10/03/2016 Gastroesophageal reflux disease with esophagitis 02/08/2016 intermediate current use of systemic steroids 11/07 Dyslipidemia [...] Description 05/25/2024 9:30 AM EDT Imaging Radiology, [address] [place] [address] 05/25/2024 10:00 AM EDT Office Visit Rheumatology [address] [place] [address] Hardeep Lynch MD [address] [place] [address] [place] [address] 07/10/2024 2:45 PM EDT Office Visit Dermatology [facility] 200 [facility] [place] [address] Freddie Freeman MD [address] [facility] [place] [address] Health Maintenance Due Date Last Done Comments [...] D LEVEL ONCE IN A LIFETIME-USE SMARTSET# [id number] Completed 05/14/2022, 06/05/2021, 05/31/2020, Additional history exists [...] this encounter Medical Devices Implanted Type Area Raw Mill Operator Device Identifier Shelf Expiration Date Model / Serial / Lot Atriclip 35mm [id number] - [id number] Implanted:Qty: 1 on 01/30/2018 by Caleb Cruz MD at [place] [facility] [place] Left: Heart ATRICURE 01/27/2020 [id number] / / [id number] Suture Steel 6 B&S19 M654g - [id number] Implanted:Qty: 4 on 01/30/2018 by Caleb Cruz MD at [place] [facility] [place] Sternum JNJ : [employer] 08/27/2022 M654G / / [id number] documented as of this encounter Procedures Procedure Name Priority Date/Time Associated Diagnosis Comments RADIOLOGY EXAM - GENERAL RAD (IMAGES ONLY,NO REPORT) Routine 04/14/2019 9:30 AM EDT documented in this encounter Results * RADIOLOGY EXAM - GENERAL RAD (IMAGES ONLY,NO REPORT) (04/14/2019 9:30 AM EDT) 04/14/2019 9:27 AM EDT Narrative Scheduling, Silent - 03/16/2024 12:35 PM EDT This is an imaging study not interpreted or resulted by a [facility] or [employer] contracted radiologist. [facility] (RAD G ENERAL) documented in this encounter Advance Directives * Full Code (Latest Code Status on File) Date Activated Date Inactivated Comments 01/30/2018 1:47 PM 02/05/2018 5:50 PM This order re flects the patients wishes and were consensually agreed upon. Care Teams Community Development Worker Relationship Specialty Start Date End Date Demi Castorena MD PCP - General Family Medicine 05/20/18 11/02/19 documented as of this encounter
--- OUTSIDE RECORDS SUMMARY | 2024-04-25 17:20 | External Medical Summary | Summary of Care ---
Author Name Unknown Organization [facility] Address [address] [place] [address] Phone [phone] Care Team Providers Care Technician Biological Health Name Role Phone Nikita Brady MD Primary Care Provider [phone] Encounter Details Date Type Department Care Team (Latest Contact Info) Description 05/11/2018 12:50 AM EDT - 05/11/2018 11:59 PM EDT Hospital Encounter Radiology Film File [address] [place] [address] Discharge Disposition: Home - Self [...] 04/14/20 18 Coronary artery disease invo lving [place] coronary artery of [place] heart without angina pectoris 03/13/2018 S/P CABG x 4 12/12/2017 Hx of actinic keratosis 06/04/2017 BPH with obstruction/lower urinary tract symptom s 04/11/2017 Primary osteoarthritis of both hands 04/01/2017 Senile osteoporosis 10/03/2016 Gastroesophageal reflux disease with esophagitis 02/08/2016 [facility]-way current use of systemic steroids 11/07 Dyslipidemia [...] Description 05/25/2024 9:30 AM EDT Imaging Radiology, [address] [place] [address] 05/25/2024 10:00 AM EDT Office Visit Rheumatology [address] [place] [address] Hardeep Lynch MD [address] [place] [address] [place] [address] 07/10/2024 2:45 PM EDT Office Visit Dermatology [facility] 200 [facility] [place] [address] Freddie Freeman MD 200 [facility] [place] [address] Health Maintenance Due Date Last Done Comments [...] D LEVEL ONCE IN A LIFETIME-USE SMARTSET# [id number] Completed 05/14/2022, 06/05/2021, 05/31/2020, Additional history exists [...] this encounter Medical Devices Implanted Type Area Chamber Worker Device Identifier Shelf Expiration Date Model / Serial / Lot Atriclip 35mm [id number] - [id number] Implanted:Qty: 1 on 01/30/2018 by Caleb Cruz MD at [place] [facility] [place] Left: Heart ATRICURE 01/27/2020 [id number] / / [id number] Suture Steel 6 B&S19 M654g - [id number] Implanted:Qty: 4 on 01/30/2018 by Caleb Cruz MD at [place] [facility] [place] Sternum JNJ : [employer] 08/27/2022 [id number] / / [id number] documented as of this encounter Procedures Procedure Name Priority Date/Time Associated Diagnosis Comments RADIOLOGY EXAM - CT (IMAGES ONLY, NO REPORT) Routine 05/11/2018 12:50 AM EDT documented in this encounter Results * RADIOLOGY EXAM - CT (IMAGES ONLY, NO REPORT) (05/11/2018 12:50 AM EDT) 05/11/2018 12:4 8 AM EDT Narrative Scheduling, Silent - 03/16/2024 12:45 PM EDT This is an imaging study not interpreted or resulted by a [employer] or [employer] contracted radiologist. Zully VELEZ RAD CT documented in this encounter Advance Directives * Full Code (Latest Code Status on File) Date Activated Date Inactivated Comments 01/30/2018 1:47 PM 02/05/2018 5:50 PM This order re flects the patients wishes and were consensually agreed upon. Care Teams Technician Biological Health Relationship Specialty Start Date End Date Nikita Brady MD PCP - General Family Medicine 10/02/16 05/19/18 documented as of this encounter
--- OUTSIDE RECORDS SUMMARY | 2024-04-25 17:20 | External Medical Summary | Summary of Care ---
Author Name Unknown Organization [facility] Address [address] [place] [address] Phone [phone] Care Team Providers Care Director Check Name Role Phone Nikita Brady MD Primary Care Provider [phone] Encounter Details Date Type Department Care Team (Latest Contact Info) Description 11/25/2023 2:10 PM EST - 11/25/2023 3:59 PM EST Hospital Encounter Radiology Film File [address] [place] [address] Discharge Disposition: Home - Self [...] bia re-entry tachycardia) (HCC),Coronary artery disease involving [place] coronary artery of [place] heart without angina pectoris Take 1 Cap [...] 04/14/20 18 Coronary artery disease invo lving [place] coronary artery of [place] heart without angina pectoris 03/13/2018 S/P CABG x 4 12/12/2017 Hx of actinic keratosis 06/04/2017 BPH with obstruction/lower urinary tract symptom s 04/11/2017 Primary osteoarthritis of both hands 04/01/2017 Senile osteoporosis 10/03/2016 Gastroesophageal reflux disease with esophagitis 02/08/2016 [facility] current use of systemic steroids 11/07 Dyslipidemia [...] 9:30 AM EDT Imaging Radiology, [place] [address] [place] [address] 05/25/2024 10:00 AM EDT Office Visit Rheumatology [facility] [place] [address] Hardeep Lynch MD [address] [place] [address] 07/10/2024 2:45 PM EDT Office Visit Dermatology [facility] [place] [address] [place] [address] Freddie Freeman MD [address] [place] [address] Health Maintenance Due Date Last Done Comments [...] D LEVEL ONCE IN A LIFETIME-USE SMARTSET# [id number] Completed 05/14/2022, 06/05/2021, 05/31/2020, Additional history exists [...] this encounter Medical Devices Implanted Type Area Flight Director Device Identifier Shelf Expiration Date Model / Serial / Lot Atriclip 35mm [id number] - [id number] Implanted:Qty: 1 on 01/30/2018 by Caleb Cruz MD at [place] [facility] [place] Left: Heart ATRICURE 01/27/2020 [id number] / / [id number] Suture Steel 6 B&S19 M654g - [id number] Implanted:Qty: 4 on 01/30/2018 by Caleb Cruz MD at [place] [facility] [place] Sternum JNJ : [employer] 08/27/2022 [id number] / / [id number] documented as of this encounter Procedures Procedure Name Priority Date/Time Associated Diagnosis Comments RADIOLOGY EXAM - CT (IMAGES ONLY, NO REPORT) Routine 11/25/2023 2:10 PM EST documented in this encounter Results * RADIOLOGY EXAM - CT (IMAGES ONLY, NO REPORT) (11/25/2023 2:10 PM EST) 11/25/2023 2:06 PM EST Narrative Scheduling, Silent - 03/16/2024 12:39 PM EDT This is an imaging study not interpreted or resulted by a [employer] or [employer] contracted radiologist. Zully VELEZ RAD CT documented in this encounter Advance Directives * Full Code (Latest Code Status on File) Date Activated Date Inactivated Comments 01/30/2018 1:47 PM 02/05/2018 5:50 PM This order re flects the patients wishes and were consensually agreed upon. Care Teams Director Check Relationship Specialty Start Date End Date Nikita Brady MD [address] [facility] [place] [address] PCP - General Family Medicine 12/10/19 documented as of this encounter
--- OUTSIDE RECORDS SUMMARY | 2024-04-25 17:21 | External Medical Summary | Summary of Care ---
Author Name Unknown Organization [facility] Address [address] [place] [address] Phone [phone] Care Team Providers Care Dumpman Name Role Phone Nikita Brady MD Primary Care Provider [phone] [phone] Encounter Details Date Type Department Care Team (Late st Contact Info) Description 12/10/2023 Orders Only Family Practice [facility] [address] [facility] [place] [address] Moni Freire PA-C [address] [place] [address] Allergies Active Allergy Reactions Criticality Noted Date Comments Pollen 05/31/2016 Dust,mold documented as of this encounter (statuses as of 12/10/2023) Medications Medication Sig Dispensed Refills Start Date End Date Status NEXIUM 40 MG PO CPDR Take one capsule by mouth one time daily 30 Cap 5 11/03/2014 Active Calcium Carb-Cholecalcifer ol (CALCIUM + D3) 600-200 MG-UNIT per tablet Take 2 Tablets by mouth in the morning. 0 Active Magnesium Oxide 400 MG CapsuleIndications :Paroxysmal atrial fibrillation (HCC),AVNRT (AV bia re-entry tachycardia),Coron jimenez artery disease involving [place] coronary artery of [place] heart without angina pectoris Take 1 Cap by mouth daily. 30 Cap 5 09/28/2019 Active Aspirin 81 MG Oral Tablet ChewableIndication s:Paroxysmal atrial fibrillation (HCC) Take 1 Tablet by mouth in the morning. 0 02/23/2021 Active Ezetimibe 10 MG Oral Tablet (Zetia)Indications :Dyslipidemia TAKE 1 TABLET BY MOUTH EVERY DAY 90 Tablet 3 01/25/2023 Active oxyCODONE HCl 5 MG Oral Tablet (Oxy IR) Take 1 Tablet by mouth every 8 hours as needed. For pain. 0 01/15/2023 Active Lidocaine 4 % External Patch (Aspercreme) Place 1 Patch topically on the skin daily. 30 Patch 0 01/25/2023 Active Hyoscyamine Sulfate ER 0.375 MG [...] Active Lisinopril 5 MG Oral Tablet (Prinivil) 0 02/12/2023 Active Baclofen 10 MG Oral Tablet (Lioresal) TAKE 1 TABLET BY MOUTH EVERYDAY AT BEDTIME 90 Tablet 3 06/28/2023 Active Sotalol HCl 120 MG Oral TabletIndications: Paroxysmal atrial fibrillation (HCC),AVNRT (AV bia re-entry tachycardia) TAKE 1 TABLET BY MOUTH TWICE A DAY 180 Tablet 3 07/03/2023 Active DULoxetine HCl 60 MG Oral Capsule Delayed Release Particles (Cymbalta)Indicati ons:Adjustment disorder with depressed mood TAKE 2 CAPSULES BY MOUTH EVERY DAY 180 Capsule 1 07/25/2023 Active traMADol HCl 50 MG Oral Tablet (Ultram)Indication s:Fall at home, sequela Take 1 Tablet by mouth every 6 hours as needed for Pain, Severe. 30 Tablet 0 07/30/2023 Active Nirmatrelvir&Riton avir 300/100 20 x 150 MG & 10 x 100MG Oral Tablet Therapy Pack (Paxlovid) Take 2 pink tablets of Nirmatrelvir and 1 white tablet of Ritonavir two times a day by mouth. 30 Tablet 0 08/30/2023 Active Additional Information Patient not taking.Reported on 10/07/2023 Nitroglycerin 0.2% rectal ointment Administer into the rectum 2 times a day. 30 g 0 09/02/2023 Active Additional Information Patient not taking.Reported [...] EVERY DAY 90 Tablet 3 10/17/2023 Active Furosemide 20 MG Oral Tablet (Lasix)Indications :Pleural effusion, left TAKE ONE TABLET BY MOUTH DAILY IN MORNING ON MONDAYS, WEDNESDAYS, FRIDAYS, SATURDAYS 16 Tablet 36 11/18/2023 Active Amoxicillin-Pot Clavulanate 875-125 MG Oral Tablet (Augmentin) Take 1 Tablet by mouth in the morning and 1 Tablet before bedtime. 0 11/25/2023 Active documented as of this encounter (statuses as of 12/10/2023) Active Problems Problem Noted Date Diagnosed Date [...] 04/14/20 18 Coronary artery disease invo lving [place] coronary artery of [place] heart without angina pectoris 03/13/2018 S/P CABG x 4 12/12/2017 Hx of actinic keratosis 06/04/2017 BPH with obstruction/lower urinary tract symptom s 04/11/2017 Primary osteoarthritis of both hands 04/01/2017 Senile osteoporosis 10/03/2016 Gastroesophageal reflux disease with esophagitis 02/08/2016 alf current use of systemic steroids 11/07 Dyslipidemia Polymyalgia rheumatica Overview: Dr Sevilla HLA-B27 spondyloarthropathy documented as of this encounter (statuses as of 12/10/2023) Resolved Problems Problem Noted Date Diagnosed Date [...] as of this encounter (statuses as of 12/10/2023) Immunizations Name Administration Dates Next Due COVID-19 mRNA, LNP-s, No Pre serve, 2-Dose Series ([employer]) 09/12/2021,01/25/2021,12/28/2020 Pneumococcal Conjugate Vacc, 13 Valent (Prevnar) [...] Date Smoking Tobacco: Former Cigarettes 0.5 30 Q uit: 10/28/1991 Pipe Smokeless Tobacco: Never Comments:quit about [...] Care Team (Late st Contact Info) Description 03/04/2024 9:45 AM EDT Imaging Radiology [facility] [address] [place] [address] 05/25/2024 9:30 AM EDT Imaging Radiology, [address] [place] [address] 05/25/2024 10:00 AM EDT Office Visit Rheumatology [address] [place] [address] Hardeep Lynch MD [address] [place] [address] [place] [address] 07/10/2024 2:15 PM EDT Office Visit Dermatology [facility] 200 [facility] [place] [address] Freddie Freeman MD [address] [place] [address] Health Maintenance Due Date Last Done Comments Albumin/Creatinine Ratio 12/29/2021 019, 02/09/2016, 03/10/2015 *BISPHONATE OR OTHER ACCEPTABLE MEDICATION NEEDED FOR OSTEOPOROSIS (REFER TO SMARTSET #1146) 06/16/2022 Depression Screening 05/15/2023 05/15/2022 DXA Scan 05/15/2024 05/15/2022, 04/27, 04/14/2018, Additional history exists GFR 11/25/2024 11/25/2023, 06/29, 09/06/2022, Additional history exists DTaP,Tdap,and Td Vaccines (3 - Td or Tdap) 02/05/2033 02/05/2023, 08/30/2017, 07/06/2010 Pneumococcal Vaccine: 65+ Years Completed 10/14/2015, 07/06/2010 Zoster Vaccines Completed 12/17/2019, 09/27, 08/25/2013 VITAMIN D LEVEL ONCE IN A LIFETIME-USE SMARTSET# [id number] Completed 05/14/2022, 06/05/2021, 05/31/2020, Additional history exists [...] this encounter Medical Devices Implanted Type Area Janitor Head Device Identifier Shelf Expiration Date Model / Serial / Lot Suture Steel 6 B&S19 M654g - [id number] Implanted:Qty: 4 on 01/30/2018 by Caleb Cruz MD at OR [facility] Sternum JNJ : [employer] 08/27/2022 [id number] / / [id number] documented as of this encounter Procedures Procedure Name Priority Date/Time Associated Diagnosis Comments CHEMISTRY-OUTSIDE Routine 11/25/2023 documented in this encounter Results * (ABNORMAL) CHEMISTRY-OUTSIDE (11/25/2023) Not all results display below - see scan for full detail OUTSIDE LAB (SEE SCANNED REPORT) Comment:SCAN INCLUDES: CBCD, PT/INR, UA, CMP, LACTATE, TROP, LIPASE, ISTAT PANEL, PROCALCITONIN, COVID-19, FLU A/B, RSV CREATININE-OUTSI DE LAB 0.83 0.6 - 1.4 MG/DL OUTSIDE LAB (SEE SCANNED REPORT) EGFR-OUTSIDE LAB 81.9 ML/MIN OUT SIDE LAB (SEE SCANNED REPORT) POTASSIUM-OUTSID E LAB 4.1 3.5 - 5.1 MMOL/L OUTSIDE LAB (SEE SCANNED REPORT) GLUCOSE-OUTSIDE LAB 98 70 - 99 MG/DL OUTSIDE LAB (SEE SCANNED REPORT) HOURS FASTING OUTSID E LAB (SEE SCANNED REPORT) TRIGLYCERIDES-OU TSIDE LAB OUTSIDE LAB (SEE SCANNED REPORT) CHOLESTEROL-OUTS MOUNA LAB OUTSIDE LAB (SEE SCANNED REPORT) HDL-OUTSIDE LAB OUTS MOUNA LAB (SEE SCANNED REPORT) CHOL/HDL RATIO-OUTSIDE LAB OUTSIDE LAB (SEE SCANNED REPORT) LDL (CALCULATED)-OUT SIDE LAB OUTSIDE LAB (SEE SCANNED REPORT) LDL (DIRECT MEASURE)-OUTSIDE LAB OUTSIDE LAB (SEE SCANNED REPORT) HEMOGLOBIN, L6F-PFTFAJH LAB OUTSIDE LAB (SEE SCANNED REPORT) PHOSPHORUS-OUTSI DE LAB OUTSIDE LAB (SEE SCANNED REPORT) PTH-OUTSIDE LAB OUTS MOUNA LAB (SEE SCANNED REPORT) MICROALBUMIN RATIO-OUTSIDE LAB OUTSIDE LAB (SEE SCANNED REPORT) PROTEIN, UA-OUTSIDE LAB NEGATIVE NEGATIVE OUTSIDE LAB (SEE SCANNED REPORT) HEMOGLOBIN-OUTSI DE LAB 12.7(A) 14.0 - 18.0 G/DL OUTSIDE LAB (SEE SCANNED REPORT) 11/25/2023 History Per Patient LABORATORY OUTSIDE LAB (SEE SCANNED REPORT) documented in this encounter Advance Directives Latest Code Status on File Code Status Date Activated Date Inactivated Comments Full Code 01/30/2018 1:47 PM 02/05/2018 5:50 PM This o rder reflects the patients wishes and were consensually agreed upon. Care Teams Dumpman Relationship Specialty Start Date End Date Nikita Brady MD [address] [place] [address] PCP - General Family Medicine 12/10/19 documented as of this encounter
--- OUTSIDE RECORDS SUMMARY | 2024-04-25 17:21 | External Medical Summary | Summary of Care ---
Author Name Unknown Organization [facility] Address [address] [place] [address] Phone [phone] Care Team Providers Care Tape Control Skin Or Spar Mill Operator Name Role Phone Nikita Brady MD Primary Care Provider [phone] [phone] Reason for Visit * Reason Onset Date Comments STAIR Lung Nodule 03/12/2024 Encounter Details Date Type Department Care Team (Late st Contact Info) Description 03/12/2024 Telephone STAIR LUNG NODULE [address], [place] [id number] Program, Stair [address] [place] [address] STAIR Lung Nodule Allergies Active Allergy Reactions Criticality Noted Date Comments Pollen 05/31/2016 Dust,mold documented as of this encounter (statuses as of 03/12/2024) Medications Medication Sig Dispensed Refills Start Date [...] bia re-entry tachycardia) (HCC),Coronary artery disease involving [place] coronary artery of [place] heart without angina pectoris Take 1 Cap by mouth daily. 30 Cap 5 09/28/2019 Active Aspirin 81 MG Oral Tablet ChewableIndication s:Paroxysmal atrial fibrillation (HCC) Take 1 Tablet by mouth in the morning. 0 02/23/2021 Active oxyCODONE HCl 5 MG Oral [...] 1 Tablet before bedtime. 0 11/25/2023 Active Furosemide 20 MG Oral Tablet [...] EVERY DAY 180 Capsule 3 01/19/2024 Active documented as of this encounter (statuses as of 03/12/2024) Active Problems Problem Noted Date Diagnosed Date [...] 04/14/20 18 Coronary artery disease invo lving [place] coronary artery of [place] heart without angina pectoris 03/13/2018 S/P CABG x 4 12/12/2017 Hx of actinic keratosis 06/04/2017 BPH with obstruction/lower urinary tract symptom s 04/11/2017 Primary osteoarthritis of both hands 04/01/2017 Senile osteoporosis 10/03/2016 Gastroesophageal reflux disease with esophagitis 02/08/2016 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] encounter Miscellaneous Notes * Telephone Encounter - Zoraida Garcia LPN - 03/12/2024 9:21 AM EDT Images requested from Arnaud Giles Patient managed in STAIR Program for Pulmonary Nodule - banner added documented in this encounter Plan of Treatment Upcoming Encounters Date Type Department Care Team (Late st Contact Info) Description 05/25/2024 9:30 AM EDT Imaging Radiology, [address] [place] [address] 05/25/2024 10:00 AM EDT Office Visit Rheumatology [address] [place] [address] Hardeep Lynch MD [facility] [place] [place] [address] 07/10/2024 2:45 PM EDT Office Visit Dermatology [facility] [place] [address] [facility] [place] [address] Freddie Freeman MD [address] [facility] [place] [address] Health Maintenance Due Date Last Done Comments [...] D LEVEL ONCE IN A LIFETIME-USE SMARTSET# [id number] Completed 05/14/2022, 06/05/2021, 05/31/2020, Additional history exists [...] this encounter Medical Devices Implanted Type Area Personal Fitness Trainer Device Identifier Shelf Expiration Date Model / Serial / Lot Atriclip 35mm [id number] - [id number] Implanted:Qty: 1 on 01/30/2018 by Caleb Cruz MD at OR [facility] Left: Heart ATRICURE 01/27/2020 [id number] / / [id number] Suture Steel 6 B&S19 M654g - [id number] Implanted:Qty: 4 on 01/30/2018 by Caleb Cruz MD at OR [facility] Sternum JNJ : [employer] 08/27/2022 [id number] / / [id number] documented as of this encounter Advance Directives Latest Code Status on File Code Status Date Activated Date Inactivated Comments Full Code 01/30/2018 1:47 PM 02/05/2018 5:50 PM This o rder reflects the patients wishes and were consensually agreed upon. Care Teams Tape Control Skin Or Spar Mill Operator Relationship Specialty Start Date End Date Nikita Brady MD [address] [facility] [place] [address] PCP - General Family Medicine 12/10/19 documented as of this encounter
--- OUTSIDE RECORDS SUMMARY | 2024-04-25 17:21 | External Medical Summary | Summary of Care ---
Author Name Unknown Organization [facility] Address [address] [place] [address] Phone [phone] Care Team Providers Care Enterprise Engineer Name Role Phone Trevor Ford MD Primary Care Provider [phone] [phone] Reason for Visit * Reason Comments eRx-Medication Refill Encounter Details Date Type Department Care Team (Late st Contact Info) Description 01/18/2024 Refill Family Practice [facility] [place] [address] Trevor Ford MD [address] [place] [address] Adjustment disorder with depressed mood Allergies Active Allergy Reactions Criticality Noted Date Comments Pollen 05/31/2016 Dust,mold documented as of this encounter (statuses as of 01/19/2024) Medications Medication Sig Dispensed Refills Start Date End Date Status NEXIUM 40 MG PO CPDR Take one capsule by mouth one time daily 30 Cap 5 5 Active Calcium Carb-Cholecalcif bonita (CALCIUM + D3) 600-200 MG-UNIT per tablet Take 2 Tablets by mouth in the morning. 0 Active Magnesium Oxide 400 MG CapsuleIndicatio ns:Paroxysmal atrial fibrillation (HCC),AVNRT (AV bia re-entry tachycardia),Cor onary artery disease involving [place] coronary artery of [place] heart without angina pectoris Take 1 Cap by mouth daily. 30 Cap 5 9 Active Aspirin 81 MG Oral Tablet ChewableIndicati ons:Paroxysmal atrial fibrillation (HCC) Take 1 Tablet by mouth in the morning. 0 1 Active Ezetimibe 10 MG Oral Tablet (Zetia)Indicatio ns:Dyslipidemia TAKE 1 TABLET BY MOUTH EVERY DAY 90 Tablet 3 3 Active oxyCODONE HCl 5 MG Oral Tablet (Oxy IR) Take 1 Tablet by mouth every 8 hours as needed. For pain. 0 3 Active Lidocaine 4 % External Patch (Aspercreme) Place 1 Patch topically on the skin daily. 30 Patch 0 3 Active Hyoscyamine Sulfate ER 0.375 MG Oral Tablet Extended Release 12 Hour (Levbid) Take 1 Tablet by mouth 2 times a day as needed for Cramping. For abdominal pain. Do not cut, crush or chew 60 Tablet 2 3 Active Tamsulosin HCl 0.4 MG Oral Capsule (Flomax)Indicati ons:BPH with obstruction/lowe r urinary tract symptoms TAKE 2 CAPSULES BY MOUTH EVERY DAY 180 Capsule 3 3 Active Lisinopril 5 MG Oral Tablet (Prinivil) 0 3 Active Baclofen 10 MG Oral Tablet [...] needed for Pain, Severe. 30 Tablet 0 3 Active Nirmatrelvir&Rit onavir 300/100 20 x 150 MG & 10 x 100MG Oral Tablet Therapy Pack (Paxlovid) Take 2 pink tablets of Nirmatrelvir and 1 white tablet of Ritonavir two times a day by mouth. 30 Tablet 0 3 Active Additional Information Patient not taking.Reported on 10/07/2023 Nitroglycerin 0.2% rectal ointment Administer into the rectum 2 times a day. 30 g 0 3 Active Additional Information Patient not taking.Reported [...] morning and 1 Tablet before bedtime. 0 4 Active Furosemide 20 MG Oral Tablet (Lasix)Indicatio ns:Pleural effusion, left TAKE ONE TABLET BY MOUTH DAILY IN MORNING ON MONDAYS, WEDNESDAYS, FRIDAYS, SATURDAYS 48 Tablet 3 4 Active DULoxetine HCl 60 MG Oral Capsule Delayed Release Particles (Cymbalta)Indica tions:Adjustment disorder with depressed mood TAKE 2 CAPSULES BY MOUTH EVERY DAY 180 Capsule 3 4 Active DULoxetine HCl 60 MG Oral Capsule Delayed Release Particles (Cymbalta)Indica tions:Adjustment disorder with depressed mood TAKE 2 CAPSULES BY MOUTH EVERY DAY 180 Capsule 1 3 01/19/20 24 Discontinued documented as of this encounter (statuses as of 01/19/2024) Active Problems Problem Noted Date Diagnosed Date [...] lumbar 04/14/20 Coronary artery disease invo lving [place] coronary artery of [place] heart without angina pectoris 03/13/2018 S/P CABG x 4 12/12/2017 Hx of actinic keratosis 06/04/2017 BPH with obstruction/lower urinary tract symptom s 04/11/2017 Primary osteoarthritis of both hands 04/01/2017 Senile osteoporosis 10/03/2016 Gastroesophageal reflux disease with esophagitis 02/08/2016 alf current use of systemic steroids 11/07 Dyslipidemia Polymyalgia rheumatica Overview: Dr Sevilla HLA-B27 spondyloarthropathy documented as of this encounter (statuses as of 01/19/2024) Resolved Problems Problem Noted Date Diagnosed Date [...] as of this encounter (statuses as of 01/19/2024) Immunizations Name Administration Dates Next Due COVID-19 mRNA, LNP-s, No Pre serve, 2-Dose Series ([employer]) 09/12/2021,01/25/2021,12/28/2020 Pneumococcal Conjugate Vacc, 13 Valent (Prevnar) [...] encounter Miscellaneous Notes * Telephone Encounter - Claudy Mcbride [facility] - 01/19/2024 2:42 PM EDT Signed Prescriptions: Disp Refills DULoxetine HCl 60 MG Oral Capsule Delayed *180 Ca*3 Sig: TAKE 2 CAPSULES BY MOUTH EVERY DAYAuthorizing Provider: TREVOR FORD User: CLAUDY MCBRIDE documented in this encounter Plan of Treatment Upcoming Encounters Date Type Department Care Team (Late st Contact Info) Description 03/04/2024 9:45 AM EDT Imaging Radiology [address] 132 [facility] [place] [address] 05/25/2024 9:30 AM EDT Imaging Radiology, [place] [address] [address] [place] [address] 05/25/2024 10:00 AM EDT Office Visit Rheumatology [place] [address] [address] [place] [address] Hardeep Lynch MD [facility] [place] [address] 07/10/2024 2:45 PM EDT Office Visit Dermatology [facility] [address] [place] [address] Freddie Freeman MD 200 [facility] [place] [address] Health Maintenance Due Date Last Done Comments [...] D LEVEL ONCE IN A LIFETIME-USE SMARTSET# [id number] Completed 05/14/2022, 06/05/2021, 05/31/2020, Additional history exists [...] this encounter Medical Devices Implanted Type Area Computer Technology Teacher Device Identifier Shelf Expiration Date Model / Serial / Lot Atriclip 35mm [id number] - [id number] Implanted:Qty: 1 on 01/30/2018 by Caleb Cruz MD at [place] [facility] Left: Heart ATRICURE 01/27/2020 [id number] / / [id number] Suture Steel 6 B&S19 M654g - [id number] Implanted:Qty: 4 on 01/30/2018 by Caleb Cruz MD at OR [facility] JNJ : [employer] 08/27/2022 [id number] / / [id number] documented as of this encounter Visit Diagnoses Diagnosis Adjustment disorder with depressed mood documented in this encounter Advance Directives Latest Code Status on File Code Status Date Activated Date Inactivated Comments Full Code 01/30/2018 1:47 PM 02/05/2018 5:50 PM This o rder reflects the patients wishes and were consensually agreed upon. Care Teams Enterprise Engineer Relationship Specialty Start Date End Date Trevor Ford MD [address] [place] [address] PCP - General Family Medicine 12/10/19 documented as of this encounter
--- OUTSIDE RECORDS SUMMARY | 2024-04-25 17:21 | External Medical Summary | Summary of Care ---
Author Name Unknown Organization [facility] Address [address] [place] [address] Phone [phone] Care Team Providers Care Supply Crib Attendant Name Role Phone Nikita Brady MD Primary Care Provider [phone] Encounter Details Date Type Department Care Team (Late st Contact Info) Description 11/25/2023 Result Scan Unspecified Department <No scans attached> Allergies Active Allergy Reactions Criticality Noted Date [...] bia re-entry tachycardia),Coron jimenez artery disease involving [place] coronary artery of [place] heart without angina pectoris Take 1 Cap [...] FRIDAYS, SATURDAYS 16 Tablet 36 11/18/2023 Active documented as of this encounter (statuses [...] 04/14/20 18 Coronary artery disease invo lving [place] coronary artery of [place] heart without angina pectoris 03/13/2018 S/P CABG x 4 12/12/2017 Hx of actinic keratosis 06/04/2017 BPH with obstruction/lower urinary tract symptom s 04/11/2017 Primary osteoarthritis of both hands 04/01/2017 Senile osteoporosis 10/03/2016 Gastroesophageal reflux disease with esophagitis 02/08/2016 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 11/07 Dyslipidemia [...] mRNA, LNP-s, No Pre serve, 2-Dose Series ([employer]) 09/12/2021,01/25/2021,12/28/2020 Pneumococcal Conjugate Vacc, 13 Valent (Prevnar) [...] Description 03/04/2024 9:45 AM EDT Imaging Radiology [address] 132 [facility] [place] [address] 05/25/2024 9:30 AM EDT Imaging Radiology, [address] [place] [address] 05/25/2024 10:00 AM EDT Office Visit Rheumatology [facility] [address] [place], [place] [address] Hardeep Lynch MD [address] [place], [place] [address] 07/10/2024 2:15 PM EDT Office Visit Dermatology [facility] 200 [facility] [place] [address] Freddie Freeman MD [address] [facility] [place] [address] Health Maintenance Due Date Last Done Comments [...] D LEVEL ONCE IN A LIFETIME-USE SMARTSET# [id number] Completed 05/14/2022, 06/05/2021, 05/31/2020, Additional history exists [...] this encounter Medical Devices Implanted Type Area Laborer Sawmill Device Identifier Shelf Expiration Date Model / Serial / Lot Suture Steel 6 B&S19 M654g - [id number] Implanted:Qty: 4 on 01/30/2018 by Caleb Cruz MD at OR [facility] Sternum JNJ : [employer] 08/27/2022 [id number] / / [id number] documented as of this encounter Procedures Procedure Name Priority Date/Time Associated Diagnosis Comments RADIOLOGY SCANNED RESULT 11/25/2023 documented in this encounter Results * RADIOLOGY SCANNED RESULT (11/25/2023) 11/25/2023 No Physician Data Unknown DIAGNOSTIC RAD IOLOGY SERVICES documented in this encounter Advance Directives Latest Code Status on File Code Status Date Activated Date Inactivated Comments Full Code 01/30/2018 1:47 PM 02/05/2018 5:50 PM This o rder reflects the patients wishes and were consensually agreed upon. Care Teams Supply Crib Attendant Relationship Specialty Start Date End Date Nikita Brady MD [address] [place] [address] PCP - General Family Medicine 12/10/19 documented as of this encounter
--- OUTSIDE RECORDS SUMMARY | 2024-04-25 17:21 | External Medical Summary | Summary of Care ---
Author Name Unknown Organization [facility] Address [address] [place] [address] Phone [phone] Care Team Providers Care Pta Name Role Phone Nikita Brady MD Primary Care Provider [phone] Encounter Details Date Type Department Care Team (Late st Contact Info) Description 11/25/2023 Orders Only Pulmonary Medicine, [place] [address] [place], [place] [id number] Zully Comer CRNP [address] [place], [place] [phone] Allergies Active Allergy Reactions Criticality Noted Date Comments Pollen 05/31/2016 Dust,mold documented as of this encounter (statuses as of 03/16/2024) Medications Medication Sig Dispensed Refills Start Date [...] bia re-entry tachycardia) (HCC),Coronary artery disease involving [place] coronary artery of eagle heart without angina pectoris Take 1 Cap [...] as of this encounter (statuses as of 03/16/2024) Active Problems Problem Noted Date Diagnosed Date [...] 04/14/20 18 Coronary artery disease invo lving [place] coronary artery of eagle heart without angina pectoris 03/13/2018 S/P CABG x 4 12/12/2017 Hx of actinic keratosis 06/04/2017 BPH with obstruction/lower urinary tract symptom s 04/11/2017 Primary osteoarthritis of both hands 04/01/2017 Senile osteoporosis 10/03/2016 Gastroesophageal reflux disease with esophagitis 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 11/07 Dyslipidemia Polymyalgia rheumatica Overview: Dr Sevilla HLA-B27 spondyloarthropathy documented as of this encounter (statuses as of 03/16/2024) Resolved Problems Problem Noted Date Diagnosed Date Resolved Date Adjustment disorder with depressed mood 09/14/2019 12/11/2022 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, stage III 03/02/2019 03/07/2020 Supraventricular tachycardia 03/02/2019 07/10/2019 History of atrial fibrillation 06/19/2018 06/27/2018 Kidney disease, chronic, sta ge III (GFR 30-59 ml/min) 06/10/2018 03/11/2019 Overview: Per CKD protocol #1 - Pericarditis, chronic 05/22/20182018 Post herpetic neuralgia 03/24/2018 08/3 10/2017 Pleural effusion, left 03/13/201806/19 Controlled substance agreement [...] as of this encounter (statuses as of 03/16/2024) Immunizations Name Administration Dates Next Due COVID-19 mRNA, LNP-s, No Pre serve, 2-Dose Series ([employer]) 09/12/2021,01/25/2021,12/28/2020 Pneumococcal Conjugate Vacc, 13 Valent (Prevnar) [...] Description 05/25/2024 9:30 AM EDT Imaging Radiology, [facility] [place] [address] [address] 05/25/2024 10:00 AM EDT Office Visit Rheumatology [facility] [place] [address] [place] [address] Hardeep Lynch MD [address] [place] [address] 07/10/2024 2:45 PM EDT Office Visit Dermatology [facility] [address] [place] [address] Freddie Freeman MD [address] [place] [address] Health Maintenance Due Date Last Done Comments [...] D LEVEL ONCE IN A LIFETIME-USE SMARTSET# [id number] Completed 05/14/2022, 06/05/2021, 05/31/2020, Additional history exists [...] this encounter Medical Devices Implanted Type Area Rd Lab Technician Device Identifier Shelf Expiration Date Model / Serial / Lot Atriclip 35mm [id number] - [id number] Implanted:Qty: 1 on 01/30/2018 by Caleb Cruz MD at OR [facility] [place] Left: Heart ATRICURE 01/27/2020 [id number] / / [id number] Suture Steel 6 B&S19 M654g - [id number] Implanted:Qty: 4 on 01/30/2018 by Caleb Cruz MD at OR [facility] [place] Sternum JNJ : [employer] 08/27/2022 [id number] / / [id number] documented as of this encounter Procedures Procedure [...] study not interpreted or resulted by a [employer] or [employer] contracted radiologist. Zully VELEZ RAD CT documented in this encounter Advance Directives * Full Code (Latest Code Status on File) Date Activated Date Inactivated Comments 01/30/2018 1:47 PM 02/05/2018 5:50 PM This order re flects the patients wishes and were consensually agreed upon. Care Teams Pta Relationship Specialty Start Date End Date Nikita Brady MD [address] [address] PCP - General Family Medicine 12/10/19 documented as of this encounter
--- OUTSIDE RECORDS SUMMARY | 2024-04-25 17:21 | External Medical Summary | Summary of Care ---
Author Name Unknown Organization [facility] Address [address] [place] [address] Phone [phone] Care Team Providers Care Gauge And Weigh Machine Operator Name Role Phone Demi Castorena MD Primary Care Provider Mac servin Encounter Details Date Type Department Care Team (Latest Contact Info) Description 12/21/2018 10:30 AM EST - 12/21/2018 11:59 PM EST Hospital Encounter Radiology [facility] [place] [address] [place] [address] Discharge Disposition: Home - Self [...] 04/14/20 18 Coronary artery disease invo lving [place] coronary artery of [place] heart without angina pectoris 03/13/2018 S/P CABG x 4 12/12/2017 Hx of actinic keratosis 06/04/2017 BPH with obstruction/lower urinary tract symptom s 04/11/2017 Primary osteoarthritis of both hands 04/01/2017 Senile osteoporosis 10/03/2016 Gastroesophageal reflux disease with esophagitis 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 11/07 Dyslipidemia [...] Description 05/25/2024 9:30 AM EDT Imaging Radiology, [address] [place] [address] 05/25/2024 10:00 AM EDT Office Visit Rheumatology [address] [place] [address] Hardeep Lynch MD [address] [place] [address] [place] [address] 07/10/2024 2:45 PM EDT Office Visit Dermatology [facility] [address] [facility] [place] [address] Freddie Freeman MD [address] [facility] [place] [address] Health Maintenance Due Date Last Done Comments [...] D LEVEL ONCE IN A LIFETIME-USE SMARTSET# [id number] Completed 05/14/2022, 06/05/2021, 05/31/2020, Additional history exists [...] this encounter Medical Devices Implanted Type Area Sisal Operator Device Identifier Shelf Expiration Date Model / Serial / Lot Atriclip 35mm [id number] - [id number] Implanted:Qty: 1 on 01/30/2018 by Caleb Cruz MD [place] [facility]: Heart ATRICURE 01/27/2020 [id number] / / [id number] Suture Steel 6 B&S19 M654g - [id number] Implanted:Qty: 4 on 01/30/2018 by Caleb Cruz MD [place] [facility] Sternum JNJ : [employer] 08/27/2022 [id number] / / [id number] documented as of this encounter Procedures Procedure Name Priority Date/Time Associated Diagnosis Comments RADIOLOGY EXAM - GENERAL RAD (IMAGES ONLY,NO REPORT) Routine 12/21/2018 10:30 AM EST documented in this encounter Results * RADIOLOGY EXAM - GENERAL RAD (IMAGES ONLY,NO REPORT) (12/21/2018 10:30 AM EST) 12/21/2018 10:2 6 AM EST Narrative Scheduling, Silent - 03/16/2024 12:41 PM EDT This is an imaging study not interpreted or resulted by a [facility] or [employer] contracted radiologist. Zully VELEZ RADIOLOGY (RAD G ENERAL) documented in this encounter Advance Directives * Full Code (Latest Code Status on File) Date Activated Date Inactivated Comments 01/30/2018 1:47 PM 02/05/2018 5:50 PM This order re flects the patients wishes and were consensually agreed upon. Care Teams Gauge And Weigh Machine Operator Relationship Specialty Start Date End Date Demi Castorena MD PCP - General Family Medicine 05/20/18 11/02/19 documented as of this encounter
--- OUTSIDE RECORDS SUMMARY | 2024-04-25 17:21 | External Medical Summary | Summary of Care ---
Author Name Unknown Organization [facility] Address [address] [place] [address] Phone [phone] Care Team Providers Care Kennel Hand Name Role Phone Nikita Brady MD Primary Care Provider [phone] Encounter Details Date Type Department Care Team (Late st Contact Info) Description 11/25/2023 Orders Only Pulmonary Medicine, [place] [address], [place] [phone] Zully Comer CRNP [address], [place] [phone] Allergies Active Allergy Reactions Criticality Noted Date [...] bia re-entry tachycardia) (HCC),Coronary artery disease involving [place] coronary artery of [place] heart without angina pectoris Take 1 Cap [...] 04/14/20 18 Coronary artery disease invo lving [place] coronary artery of [place] heart without angina pectoris 03/13/2018 S/P CABG x 4 12/12/2017 Hx of actinic keratosis 06/04/2017 BPH with obstruction/lower urinary tract symptom s 04/11/2017 Primary osteoarthritis of both hands 04/01/2017 Senile osteoporosis 10/03/2016 Gastroesophageal reflux disease with esophagitis 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 [place] [address] [address] Hardeep Lynch MD [address] [place] [address] 07/10/2024 2:45 PM EDT Office Visit Dermatology [facility] [address] [place] [address] Freddie Freeman MD [address] [place] [address] Health Maintenance Due Date Last Done Comments [...] D LEVEL ONCE IN A LIFETIME-USE SMARTSET# [id number] Completed 05/14/2022, 06/05/2021, 05/31/2020, Additional history exists [...] this encounter Medical Devices Implanted Type Area Paving Supervisor Device Identifier Shelf Expiration Date Model / Serial / Lot Atriclip 35mm [id number] - [id number] Implanted:Qty: 1 on 01/30/2018 by Caleb Cruz MD at OR [facility] [place] Left: Heart ATRICURE 01/27/2020 [id number] / / [id number] Suture Steel 6 B&S19 M654g - [id number] Implanted:Qty: 4 on 01/30/2018 by Caleb Cruz MD at OR [facility] [place] Sternum JNJ : [employer] 08/27/2022 M654G / / [id number] documented as of this encounter Procedures Procedure [...] interpreted or resulted by a [facility] or [employer] contracted radiologist. Zully VELEZ RADIOLOGY (RAD G ENERAL) documented in this encounter Advance Directives * Full Code (Latest Code Status on File) Date Activated Date Inactivated Comments 01/30/2018 1:47 PM 02/05/2018 5:50 PM This order re flects the patients wishes and were consensually agreed upon. Care Teams Kennel Hand Relationship Specialty Start Date End Date Nikita Brady MD [address] [address] PCP - General Family Medicine 12/10/19 documented as of this encounter
--- OUTSIDE RECORDS SUMMARY | 2024-04-25 17:21 | External Medical Summary | Summary of Care ---
Author Name Unknown Organization [facility] Address [address] [place] [address] Phone [phone] Care Team Providers Care Adjunct Professor Of Law Name Role Phone Nikita Brady MD Primary Care Provider [phone] Reason for Visit * Reason Onset Date Comments Home Health 09/16/2023 Encounter Details Date Type Department Care Team (Late st Contact Info) Description 09/16/2023 Telephone Family Practice [facility] [address] [place] [address] Nikita Brady MD [address] [place] [address] Home Health Allergies Active Allergy Reactions Criticality Noted Date Comments Pollen 05/31/2016 Dust,mold documented as of this encounter (statuses as of 12/16/2023) Medications Medication Sig Dispensed Refills Start Date [...] bia re-entry tachycardia),Coron jimenez artery disease involving [place] coronary artery of [place] heart without angina pectoris Take 1 Cap [...] 2 weeks. 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 11/07 Dyslipidemia Polymyalgia rheumatica Overview: Dr Sevilla HLA-B27 spondyloarthropathy documented as of this encounter (statuses as of 12/16/2023) Resolved Problems Problem Noted Date Diagnosed Date [...] as of this encounter (statuses as of 12/16/2023) Immunizations Name Administration Dates Next Due COVID-19 mRNA, LNP-s, No Pre serve, 2-Dose Series ([employer]) 09/12/2021,01/25/2021,12/28/2020 Pneumococcal Conjugate Vacc, 13 Valent (Prevnar) [...] encounter Miscellaneous Notes * Telephone Encounter - Karuna Ibanez LPN - 09/16/2023 3:23 PM EST PT Continuation RyanPT, Calling from: [facility] PT Plan of care: 1 times per week for 2 weeks: Focusing on: alba and strengthening. Advised that additional visit orders will be signed by Dr Brady and to fax to the office for signature documented in this encounter Plan of Treatment Upcoming Encounters Date Type Department Care Team (Late st Contact Info) Description 03/04/2024 9:45 AM EDT Imaging Radiology [facility] [address] [place] [address] 05/25/2024 9:30 AM EDT Imaging Radiology, [address] [place] [address] 05/25/2024 10:00 AM EDT Office Visit Rheumatology [address] [place] [address] Hardeep Lynch MD [address] [place] [address] [place] [address] 07/10/2024 2:45 PM EDT Office Visit Dermatology [facility] [place] [address] Freddie Freeman MD [address] [facility] [place] [address] Health Maintenance Due Date Last Done Comments [...] D LEVEL ONCE IN A LIFETIME-USE SMARTSET# [id number] Completed 05/14/2022, 06/05/2021, 05/31/2020, Additional history exists [...] this encounter Medical Devices Implanted Type Area Political Advisor Device Identifier Shelf Expiration Date Model / Serial / Lot Atriclip 35mm [id number] - [id number] Implanted:Qty: 1 on 01/30/2018 by Caleb Cruz MD at OR [facility] [place] Left: Heart ATRICURE 01/27/2020 [id number] / / [id number] Suture Steel 6 B&S19 M654g - [id number] Implanted:Qty: 4 on 01/30/2018 by Caleb Cruz MD at OR [facility] [place] Sternum JNJ : [employer] 08/27/2022 M654G / / [id number] documented as of this encounter Advance Directives Latest Code Status on File Code Status Date Activated Date Inactivated Comments Full Code 01/30/2018 1:47 PM 02/05/2018 5:50 PM This o rder reflects the patients wishes and were consensually agreed upon. Care Teams Adjunct Professor Of Law Relationship Specialty Start Date End Date Nikita Brady MD [address] [place] [address] PCP - General Family Medicine 12/10/19 documented as of this encounter
--- OUTSIDE RECORDS SUMMARY | 2024-04-25 17:21 | External Medical Summary | Summary of Care ---
Author Name Unknown Organization [facility] Address [address] [facility] [place] [address] Phone [phone] Care Team Providers Care Ski Topper Name Role Phone Nikita Brady MD Primary Care Provider [phone] [phone] Reason for Visit * Reason Comments eRx-Medication Refill Encounter Details Date Type Department Care Team (Late st Contact Info) Description 01/18/2024 Refill Cardiology, [facility] [address] [facility] [place] [address] Virgie Dumont, [address] [place] [address] Dyslipidemia Allergies Active Allergy Reactions Criticality Noted Date Comments Pollen 05/31/2016 Dust,mold documented as of this encounter (statuses as of 01/20/2024) Medications Medication Sig Dispensed Refills Start Date [...] bia re-entry tachycardia),Cor onary artery disease involving [place] coronary artery of [place] heart without angina pectoris Take 1 Cap by mouth daily. 30 Cap 5 9 Active Aspirin 81 MG Oral Tablet ChewableIndicati ons:Paroxysmal atrial fibrillation (HCC) Take 1 Tablet by mouth in the morning. 0 1 Active oxyCODONE HCl 5 MG Oral [...] EVERY DAY 180 Capsule 3 4 Active Ezetimibe 10 MG Oral Tablet (Zetia)Indicatio ns:Dyslipidemia TAKE 1 TABLET BY MOUTH EVERY DAY 90 Tablet 3 3 01/20/20 24 Discontinued documented as of this encounter (statuses as of 01/20/2024) Active Problems Problem Noted Date Diagnosed Date [...] 04/14/20 18 Coronary artery disease invo lving [place] coronary artery of [place] heart without angina pectoris 03/13/2018 S/P CABG x 4 12/12/2017 Hx of actinic keratosis 06/04/2017 BPH with obstruction/lower urinary tract symptom s 04/11/2017 Primary osteoarthritis of both hands 04/01/2017 Senile osteoporosis 10/03/2016 Gastroesophageal reflux disease with esophagitis 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 11/07 Dyslipidemia Polymyalgia rheumatica Overview: Dr Sevilla HLA-B27 spondyloarthropathy documented as of this encounter (statuses as of 01/20/2024) Resolved Problems Problem Noted Date Diagnosed Date [...] as of this encounter (statuses as of 01/20/2024) Immunizations Name Administration Dates Next Due COVID-19 mRNA, LNP-s, No Pre serve, 2-Dose Series ([place]) 09/12/2021,01/25/2021,12/28/2020 Pneumococcal Conjugate Vacc, 13 Valent (Prevnar) [...] encounter Miscellaneous Notes * Telephone Encounter - Virgie Dumont DO - 01/20/2024 6:44 PM EDTSigned Prescriptions: Disp Refills Ezetimibe 10 MG Oral Tablet (Zetia) 90 Tab*3 Sig: TAKE 1 TABLET BY MOUTH EVERY DAY Authorizing Provider: VIRGIE DUMONT * Telephone Encounter - Lis Torres CMA - 01/20/2024 9:55 AM EDTPending Prescriptions: Disp Refills Ezetimibe 10 MG Oral Tablet [Pharmacy Med *90 Tab*3 Sig: TAKE 1 TABLET BY MOUTH EVERY DAY * Telephone Encounter - Lis Torres CMA - 01/20/2024 9:55 AM EDT Did you pend patient's preferred pharmacy and medication before forwarding?yes Pharmacy: [id number] [address] [facility] Pending Prescriptions: Disp Refills Ezetimibe 10 MG Oral Tablet (Zetia) [Phar*90 Tab*3 Sig: TAKE 1 TABLET BY MOUTH EVERY DAY Last Visit: 10/07/2023 (in office), 02/12/2020 (telemedicine) Next Visit: Visit date not found If no future appointments scheduled, and last appointment is greater than a year ago, please schedule patient for a follow-up appointment Last date the medication was ordered: 01-25-2023 Is this request for a controlled substance?No Urine Drug Screen:No results found. However, due to the size of the patient record, not all encounters were searched. Please check Results Review for a complete set of results. Patient Phone Numbers Labs: Lab Results Component Value Date/Time CREAT 0.83 11/25/2023 12:00 AM CREAT 1.0 05/31/2020 07:53 AM POTASSIUM 4.1 11/25/2023 12:00 AM POTASSIUM 4.3 05/31/2020 07:53 AM TSH 2.28 07/26/2023 08:24 AM TSH 0.99 10/06/2019 04:33 PM LDLCALC 80 10/06/2019 04:33 PM LDLDIRECT 53 05/14/2022 11:08 AM LDLDIRECT NOT APPLICABLE 10/06/2019 04:33 PM LDLDIRECT 115 01/30/2017 07:04 AM ALT 20 09/06/2022 09:38 AM ALT 26 10/06/2019 04:33 PM HGBA1C 5.2 01/29/2018 05:07 PM documented in this encounter Plan of Treatment Upcoming Encounters Date Type Department Care Team (Late st Contact Info) Description 03/04/2024 9:45 AM EDT Imaging Radiology [address] [facility] [place] [address] 05/25/2024 9:30 AM EDT Imaging Radiology, [place] [address] [address] 05/25/2024 10:00 AM EDT Office Visit Rheumatology [facility] [place] [address] [place] [address] Hardeep Lynch MD [facility] [place] [address] 07/10/2024 2:45 PM EDT Office Visit Dermatology [facility] [address] [place] [address] Freddie Freeman MD [address] [place] [address] Health Maintenance Due Date Last Done Comments [...] D LEVEL ONCE IN A LIFETIME-USE SMARTSET# [id number] Completed 05/14/2022, 06/05/2021, 05/31/2020, Additional history exists [...] this encounter Medical Devices Implanted Type Area Quarry Supervisor Open Pit Device Identifier Shelf Expiration Date Model / Serial / Lot Atriclip 35mm [id number] - [id number] Implanted:Qty: 1 on 01/30/2018 by Caleb Cruz MD at OR [facility] [place] Left: Heart ATRICURE 01/27/2020 [id number] / / [id number] Suture Steel 6 B&S19 M654g - [id number] Implanted:Qty: 4 on 01/30/2018 by Caleb Cruz MD at OR [facility] [place] Sternum JNJ : [employer] 08/27/2022 [id number] / / [id number] documented as of this encounter Visit Diagnoses Diagnosis Dyslipidemia Other and unspecified hyperlipidemia documented in this encounter Advance Directives Latest Code Status on File Code Status Date Activated Date Inactivated Comments Full Code 01/30/2018 1:47 PM 02/05/2018 5:50 PM This o rder reflects the patients wishes and were consensually agreed upon. Care Teams Ski Topper Relationship Specialty Start Date End Date Nikita Brady MD [address] [address] PCP - General Family Medicine 12/10/19 documented as of this encounter
--- OUTSIDE RECORDS SUMMARY | 2024-04-25 17:21 | External Medical Summary | Summary of Care ---
Author Name Unknown Organization [facility] Address [address] [place] [place] [place] [address] Phone [phone] Care Team Providers Care Cargo And Ramp Services Manager Name Role Phone Nikita Brady MD Primary Care Provider [phone] [phone] Encounter Details Date Type Department Care Team (Late st Contact Info) Description 03/04/2024 Result Scan Unspecified Department John Tamayo, DO [address] [place] [address] <No scans attached> Allergies Active Allergy Reactions Criticality Noted Date Comments Pollen 05/31/2016 Dust,mold documented as of this encounter (statuses as of 03/04/2024) Medications Medication Sig Dispensed Refills Start Date [...] bia re-entry tachycardia) (HCC),Coronary artery disease involving redding coronary artery of redding heart without angina pectoris Take 1 Cap [...] as of this encounter (statuses as of 03/04/2024) Active Problems Problem Noted Date Diagnosed Date [...] 04/14/20 18 Coronary artery disease invo lving redding coronary artery of redding heart without angina pectoris 03/13/2018 S/P CABG x 4 12/12/2017 Hx of actinic keratosis 06/04/2017 BPH with obstruction/lower urinary tract symptom s 04/11/2017 Primary osteoarthritis of both hands 04/01/2017 Senile osteoporosis 10/03/2016 Gastroesophageal reflux disease with esophagitis 02/08/2016 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 current use of systemic steroids 11/07 Dyslipidemia Polymyalgia rheumatica Overview: Dr Sevilla HLA-B27 spondyloarthropathy documented as of this encounter (statuses as of 03/04/2024) Resolved Problems Problem Noted Date Diagnosed Date [...] as of this encounter (statuses as of 03/04/2024) Immunizations Name Administration Dates Next Due COVID-19 mRNA, LNP-s, No Pre serve, 2-Dose Series ([employer]) 09/12/2021,01/25/2021,12/28/2020 Pneumococcal Conjugate Vacc, 13 Valent (Prevnar) [...] Description 05/25/2024 9:30 AM EDT Imaging Radiology, [address] [place] [address] 05/25/2024 10:00 AM EDT Office Visit Rheumatology [address] [place] [address] Hardeep Lynch MD [facility] [place] [address] 07/10/2024 2:45 PM EDT Office Visit Dermatology [facility] [address] [facility] [place] [address] Freddie Freeman MD [address] [facility] [place] [address] Health Maintenance Due Date Last Done Comments [...] D LEVEL ONCE IN A LIFETIME-USE SMARTSET# [id number] Completed 05/14/2022, 06/05/2021, 05/31/2020, Additional history exists [...] this encounter Medical Devices Implanted Type Area Aircraft Structural Design Engineer Device Identifier Shelf Expiration Date Model / Serial / Lot Atriclip 35mm [id number] - [id number] Implanted:Qty: 1 on 01/30/2018 by Caleb Cruz MD at [place] [facility] [place]: Heart ATRICURE 01/27/2020 [id number] / / [id number] Suture Steel 6 B&S19 M654g - [id number] Implanted:Qty: 4 on 01/30/2018 by Caleb Cruz MD at [place] [facility] [place] Sternum JNJ : [employer] 08/27/2022 [id number] / / [id number] documented as of this encounter Procedures Procedure Name Priority Date/Time Associated Diagnosis Comments CARDIOLOGY SCANNED RESULT 03/04/2024 documented in this encounter Results * CARDIOLOGY SCANNED RESULT (03/04/2024) 03/04/2024 John Tamayo DO OTHER documented in this encounter Advance Directives Latest Code Status on File Code Status Date Activated Date Inactivated Comments Full Code 01/30/2018 1:47 PM 02/05/2018 5:50 PM This o rder reflects the patients wishes and were consensually agreed upon. Care Teams Cargo And Ramp Services Manager Relationship Specialty Start Date End Date iNkita Brady MD [address] [facility] [place] [address] PCP - General Family Medicine 12/10/19 documented as of this encounter
--- OUTSIDE RECORDS SUMMARY | 2024-04-25 17:21 | External Medical Summary | Summary of Care ---
Author Name Unknown Organization [facility] Address [address] [place] [address] Phone [phone] Care Team Providers Care Assistant Professor Surgical Technology Name Role Phone Nikita Brady MD Primary Care Provider [phone] Reason for Referral * Evaluate & Treat - Unlimited Visits (Within 10 days (routine)) - Authorized Specialty Diagnoses / Procedures Referred By Contsuyapa buckley Referred To Contact Pulmonary Diseases / Pulmonary Diagnoses Incidental pulmonary nodule John Tamayo DO [address] [place] [address] Referral ID Status Reason Start Date Expiration Date Visits Requested Visits Authorized [id number] Authorized Specialty Services Required 03/11/[phone] Question Answer Referral Priority Within 10 Days (Routine) Primary Reason for Referral? Lung Nodule/Mass Comments Follow up 3 mm pulmonary nodule on CT. Former smoker. Reason for Visit * Reason Onset Date Comments Test Results 03/11/2024 Encounter Details Date Type Department Care Team (Late st Contact Info) Description 03/11/2024 Telephone [facility] [address] [place] [address] John Tamayo DO [address] [place] [address] Test Results Allergies Active Allergy Reactions Criticality Noted Date Comments Pollen 05/31/2016 Dust,mold documented as of this encounter (statuses as of 03/11/2024) Medications Medication Sig Dispensed Refills Start Date [...] bia re-entry tachycardia) (HCC),Coronary artery disease involving [place] coronary artery of salam[place] heart without angina pectoris Take 1 Cap [...] as of this encounter (statuses as of 03/11/2024) Active Problems Problem Noted Date Diagnosed Date [...] 04/14/20 18 Coronary artery disease invo lving salam[place]of coronary artery of salamat[place] heart without angina pectoris 03/13/2018 S/P CABG x 4 12/12/2017 Hx of actinic keratosis 06/04/2017 BPH with obstruction/lower urinary tract symptom s 04/11/2017 Primary osteoarthritis of both hands 04/01/2017 Senile osteoporosis 10/03/2016 Gastroesophageal reflux disease with esophagitis 02/08/2016 residential current use of systemic steroids 11/07 Dyslipidemia Polymyalgia rheumatica Overview: Dr Sevilla HLA-B27 spondyloarthropathy documented as of this encounter (statuses as of 03/11/2024) Resolved Problems Problem Noted Date Diagnosed Date [...] as of this encounter (statuses as of 03/11/2024) Immunizations Name Administration Dates Next Due COVID-19 mRNA, LNP-s, No Pre serve, 2-Dose Series ([employer]) 09/12/2021,01/25/2021,12/28/2020 Pneumococcal Conjugate Vacc, 13 Valent [...] encounter Miscellaneous Notes * Telephone Encounter - John Tamayo DO - 03/11/2024 4:31 PM EDT I spoke to the patient on the phone with regards to the results of the CT of the chest. Stable 3 mmpulmonary nodule noted. He is a former smoker. Calcification of the coronary arteries noted which is anticipated given his history of coronary heart disease and past CABG. Continue present treatment. I am going to refer him to the STAIR surveillance program for pulmonarynodules. Pt agreeable. John Tamayo DO documented in this encounter Plan of Treatment Upcoming Encounters Date Type Department Care Team (Late st Contact Info) Description 05/25/2024 9:30 AM EDT Imaging Radiology, [place] [address] [address] 05/25/2024 10:00 AM EDT Office Visit Rheumatology [facility] [place] [address] Hardeep Lynch MD [address] [place] [address] 07/10/2024 2:45 PM EDT Office Visit Dermatology [facility] [address] [facility] [place] [address] Freddie Freeman MD [address] [place] [address] Scheduled Referrals Name Type Priority Associated Diagnoses Order Schedule STAIR LUNG NODULE REFERRAL OP (SYSTEM FOR TRACKING ABNORMALITIES OF IMPORTANCE RELIABLY) Referral Within 10 days (routine) Incidental pulmonary nodule Ordered: 03/11/2024 Health Maintenance Due Date Last Done Comments [...] D LEVEL ONCE IN A LIFETIME-USE SMARTSET# [id number] Completed 05/14/2022, 06/05/2021, 05/31/2020, Additional history exists [...] this encounter Medical Devices Implanted Type Area Tank Builder Device Identifier Shelf Expiration Date Model / Serial / Lot Atriclip 35mm [id number] - [id number] Implanted:Qty: 1 on 01/30/2018 by Caleb Cruz MD at [place] [facility] [place] Left: Heart ATRICURE 01/27/2020 [id number] / / [id number] Suture Steel 6 B&S19 M654g - [id number] Implanted:Qty: 4 on 01/30/2018 by Caleb Cruz MD at [place] [facility] [place] Sternum JNJ : [employer] 08/27/2022 [id number] / / [id number] documented as of this encounter Visit Diagnoses Diagnosis Incidental pulmonary nodule- Primary Solitary pulmonary nodule documented in this encounter Advance Directives Latest Code Status on File Code Status Date Activated Date Inactivated Comments Full Code 01/30/2018 1:47 PM 02/05/2018 5:50 PM This o rder reflects the patients wishes and were consensually agreed upon. Care Teams Assistant Professor Surgical Technology Relationship Specialty Start Date End Date Nikita Brady MD [address] [place] [address] PCP - General Family Medicine 12/10/19 documented as of this encounter
--- OUTSIDE RECORDS SUMMARY | 2024-04-25 17:21 | External Medical Summary | Summary of Care ---
Author Name Unknown Organization [facility] Address [address] [place] [facility] [place] [address] Phone [phone] Care Team Providers Care Batting Machine Operator Name Role Phone Nikita Brady MD Primary Care Provider [phone] Reason for Visit * Reason Onset Date Comments Medication Refill 12/16/2023 Encounter Details Date Type Department Care Team (Late st Contact Info) Description 12/16/2023 Refill Cardiology, [facility] [address] [facility] [address] John Tamayo, DO [address] [facility] [place] [address] Pleural effusion, left Allergies Active Allergy Reactions Criticality Noted Date Comments Pollen 05/31/2016 Dust,mold documented as of this encounter (statuses as of 12/16/2023) Medications Medication Sig Dispensed Refills Start Date End Date Status NEXIUM 40 MG PO CPDR Take one capsule by mouth one time daily 30 Cap 5 5 Active Calcium Carb-Cholecalcife rol (CALCIUM + D3) 600-200 MG-UNIT per tablet Take 2 Tablets by mouth in the morning. 0 Active Magnesium Oxide 400 MG CapsuleIndication s:Paroxysmal atrial fibrillation (HCC),AVNRT (AV bia re-entry tachycardia),Prasanth nary artery disease involving [place] coronary artery of [place] heart without angina pectoris Take 1 Cap by mouth daily. 30 Cap 5 9 Active Aspirin 81 MG Oral Tablet ChewableIndicatio ns:Paroxysmal atrial fibrillation (HCC) Take 1 Tablet by mouth in the morning. 0 1 Active Ezetimibe 10 MG Oral Tablet (Zetia)Indication s:Dyslipidemia TAKE 1 TABLET BY MOUTH EVERY DAY [...] Active Tamsulosin HCl 0.4 MG Oral Capsule (Flomax)Indicatio ns:BPH with obstruction/lower urinary tract symptoms TAKE 2 CAPSULES BY MOUTH EVERY DAY 180 Capsule 3 3 Active Lisinopril 5 MG Oral Tablet (Prinivil) 0 3 Active Baclofen 10 MG Oral Tablet (Lioresal) TAKE 1 TABLET BY MOUTH EVERYDAY AT BEDTIME 90 Tablet 3 3 Active Sotalol HCl 120 MG Oral TabletIndications :Paroxysmal atrial fibrillation (HCC),AVNRT (AV bia re-entry tachycardia) TAKE 1 TABLET BY MOUTH TWICE A DAY 180 Tablet 3 3 Active DULoxetine HCl 60 MG Oral Capsule Delayed Release Particles (Cymbalta)Indicat ions:Adjustment disorder with depressed mood TAKE 2 CAPSULES BY MOUTH EVERY DAY 180 Capsule 1 3 Active traMADol HCl 50 MG Oral Tablet (Ultram)Indicatio ns:Fall at home, sequela Take 1 Tablet by mouth every 6 hours as needed for Pain, Severe. 30 Tablet 0 3 Active Nirmatrelvir&Jasiel navir 300/100 20 x 150 MG & 10 [...] 3 Active Gabapentin 100 MG Oral Capsule (Neurontin)Indica tions:Post herpetic neuralgia TAKE 3 CAPS BY MOUTH TWICE DAILY 540 Capsule 1 3 Active Atorvastatin Calcium 40 MG Oral Tablet (Lipitor)Indicati ons:Dyslipidemia TAKE 1 TABLET BY MOUTH EVERY DAY 90 Tablet 3 3 Active Amoxicillin-Pot Clavulanate 875-125 MG Oral Tablet (Augmentin) Take 1 Tablet by mouth in the morning and 1 Tablet before bedtime. 0 4 Active Furosemide 20 MG Oral Tablet (Lasix)Indication s:Pleural effusion, left TAKE ONE TABLET BY MOUTH DAILY IN MORNING ON MONDAYS, WEDNESDAYS, FRIDAYS, SATURDAYS 48 Tablet 3 4 Active Furosemide 20 MG Oral Tablet (Lasix)Indication s:Pleural effusion, left TAKE ONE TABLET BY MOUTH DAILY IN MORNING ON MONDAYS, WEDNESDAYS, FRIDAYS, SATURDAYS 16 Tablet 36 4 12/16/19 24 Discontinu ed(Refill) documented as of this encounter (statuses as [...] lumbar 04/14/20 Coronary artery disease invo lving [place] coronary artery of [place] heart without angina pectoris 03/13/2018 S/P CABG x 4 12/12/2017 Hx of actinic keratosis 06/04/2017 BPH with obstruction/lower urinary tract symptom s 04/11/2017 Primary osteoarthritis of both hands 04/01/2017 Senile osteoporosis 10/03/2016 Gastroesophageal reflux disease with esophagitis 02/08/2016 care home 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) 09/12/2021,01/25/2021,12/28/2020 Pneumococcal Conjugate Vacc, 13 Valent (Prevnar) [...] encounter Miscellaneous Notes * Telephone Encounter - Soy Bryant CRNP - 12/16/2023 2:04 PM EST Signed Prescriptions: Disp Refills Furosemide 20 MG Oral Tablet (Lasix) 48 Tab*3 Sig: TAKE ONE TABLET BY MOUTH DAILY IN MORNING ON MONDAYS, WEDNESDAYS, FRIDAYS, SATURDAYS Authorizing Provider: SOY BRYANT * Telephone Encounter - Mau Estrada RN - 12/16/2023 1:53 PM EST Pending Prescriptions: Disp Refills Furosemide 20 MG Oral Tablet (Lasix) 48 Tab*3 Sig: TAKE ONE TABLET BY MOUTH DAILY IN MORNING ON MONDAYS, WEDNESDAYS, FRIDAYS, SATURDAYS Last Visit: 10/07/2023 (in office), 02/12/2020 (telemedicine) Next Visit: Visit date not found Last medication order date: 11/18/2023 Have you choosen a preferred pharm?? 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 Z79.52 HLA-B27 spondyloarthropathy M47.899 Gastroesophageal reflux disease with esophagitis K21.00 Senile osteoporosis M81.0 Primary osteoarthritis of both hands M19.041, M19.042 BPH with obstruction/lower urinary tract symptoms N40.1, N13.8 Hx of actinic keratosis Z87.2 S/P CABG x 4 Z95.1 Coronary artery disease involving [place] coronary artery of [place] heart without angina pectoris I25.10 DDD (degenerative disc disease), lumbar M51.36 HTN, goal below 130/80 I10 Paroxysmal atrial fibrillation (HCC) I48.0 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 Non-ischemic cardiomyopathy (HCC) I42.8 Irritable bowel syndrome with both constipation and diarrhea K58.2 Hx of nonmelanoma skin cancer Z85.828 Obesity, Class I, BMI 30.0-34.9 (see actual BMI) E66.9 Recurrent major depressive disorder, in full remission (HCC) F33.42 Sigmoid diverticulosis K57.30 Labs: Lab Results Component Value Date/Time CREATININE - [facility] 0.9 07/26/2023 08:24 AM CREATININE - [facility] 1.0 05/31/2020 07:53 AM CREATININE, RANDOM URINE - [facility] 107 12/29/2018 12:12 PM CREATININE-OUTSIDE LAB 0.83 11/25/2023 12:00 AM Lab Results Component Value Date/Time POTASSIUM - [facility] 4.4 09/06/2022 09:38 AM POTASSIUM - [facility] 4.3 05/31/2020 07:53 AM POTASSIUM POCT - [facility] 3.9 01/30/2018 01:59 PM POTASSIUM, WHOLE BLOOD - [facility] 4.0 01/30/2018 03:45 PM POTASSIUM-OUTSIDE LAB 4.1 11/25/2023 12:00 AM Lab Results Component Value Date/Time TSH - [facility] 2.28 07/26/2023 08:24 AM TSH - [facility] 0.99 10/06/2019 04:33 PM TSH - OUTSIDE LAB 0.549 12/21/2018 12:00 AM Lab Results Component Value Date/Time LDL CHOLESTEROL (CALCULATED) - [facility] 80 10/06/2019 04:33 PM LDL CHOLESTEROL (CALCULATED) - [facility] 44 09/01/2018 07:07 AM LDL CHOLESTEROL (DIRECT MEASURE) - [facility] 53 05/14/2022 11:08 AM LDL CHOLESTEROL (DIRECT MEASURE) - [facility] 56 06/05/2021 07:14 AM LDL CHOLESTEROL (DIRECT MEASURE) - [facility] NOT APPLICABLE 10/06/2019 04:33 PM LDL CHOLESTEROL (DIRECT MEASURE) - [facility] NOT APPLICABLE 09/01/2018 07:07 AM LDL CHOLESTEROL (DIRECT MEASURE) - [facility] 115 01/30/2017 07:04 AM LDL CHOLESTEROL (DIRECT MEASURE) - [facility] 91 01/17/2015 10:00 AM Lab Results Component Value Date/Time ALT - [facility] 20 09/06/2022 09:38 AM ALT - [facility] 26 10/06/2019 04:33 PM Hemoglobin AIC Results: Lab Results Component Value Date/Time HEMOGLOBIN A1C - [facility] 5.2 01/29/2018 05:07 PM documented in this encounter Plan of Treatment Upcoming Encounters Date Type Department Care Team (Late st Contact Info) Description 03/04/2024 9:45 AM EDT Imaging Radiology [address] [facility] [place] [address] 05/25/2024 9:30 AM EDT Imaging Radiology, [address] [place] [address] 05/25/2024 10:00 AM EDT Office Visit Rheumatology [address] [place] [address] Hardeep Lynch MD [address] [place] [address] [place] [address] 07/10/2024 2:45 PM EDT Office Visit Dermatology [facility] 200 [facility] [place] [address] Freddie Freeman MD 200 [facility] [place] [address] Health Maintenance Due Date Last Done Comments Albumin/Creatinine Ratio 12/29/20212 019, 02/09/2016, 03/10/2015 *BISPHONATE OR OTHER ACCEPTABLE [...] D LEVEL ONCE IN A LIFETIME-USE SMARTSET# [id number] Completed 05/14/2022, 06/05/2021, 05/31/2020, Additional history exists [...] this encounter Medical Devices Implanted Type Area Tanbark Peeler Device Identifier Shelf Expiration Date Model / Serial / Lot Atriclip 35mm [id number] - [id number] Implanted:Qty: 1 on 01/30/2018 by Caleb Cruz MD [place] [facility] [place]: Heart ATRICURE 01/27/2020 [id number] / / [id number] Suture Steel 6 B&S19 M654g - [id number] Implanted:Qty: 4 on 01/30/2018 by Caleb Cruz MD at [place] [facility] [place] Sternum JNJ : [employer] 08/27/2022 [id number] / / [id number] documented as of this encounter Visit Diagnoses Diagnosis Pleural effusion, left Unspecified pleural effusion documented in this encounter Advance Directives Latest Code Status on File Code Status Date Activated Date Inactivated Comments Full Code 01/30/2018 1:47 PM 02/05/2018 5:50 PM This o rder reflects the patients wishes and were consensually agreed upon. Care Teams Batting Machine Operator Relationship Specialty Start Date End Date Nikita Brady MD [address] [place] [address] PCP - General Family Medicine 12/10/19 documented as of this encounter
--- OUTSIDE RECORDS SUMMARY | 2024-04-25 17:22 | External Medical Summary | Summary of Care ---
Author Name Unknown Organization [facility] Address [address] [place] [address] Phone [phone] Care Team Providers Care Parking Lot Spotter Name Role Phone Nikita Brady MD Primary Care Provider [phone] Encounter Details Date Type Department Care Team (Late st Contact Info) Description 11/26/[address] [facility] [place] [id number] Nikita [facility] [address] [facility] [place] [address] Allergies Active Allergy Reactions Criticality Noted Date Comments Pollen 05/31/2016 Dust,mold documented as of this encounter (statuses as of 11/26/2023) Medications Medication Sig Dispensed Refills Start Date [...] bia re-entry tachycardia),Coron jimenez artery disease involving agdaag[place] coronary artery of agdaagux heart without angina pectoris Take 1 Cap [...] as of this encounter (statuses as of 11/26/2023) Active Problems Problem Noted Date Diagnosed Date [...] 04/14/20 18 Coronary artery disease invo lving agdaagux coronary artery of agdaagux heart without angina pectoris 03/13/2018 S/P CABG x 4 12/12/2017 Hx of actinic keratosis 06/04/2017 BPH with obstruction/lower urinary tract symptom s 04/11/2017 Primary osteoarthritis of both hands 04/01/2017 Senile osteoporosis 10/03/2016 Gastroesophageal reflux disease with esophagitis 02/08/2016 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 11/07 Dyslipidemia Polymyalgia rheumatica Overview: Dr Sevilla HLA-B27 spondyloarthropathy documented as of this encounter (statuses as of 11/26/2023) Resolved Problems Problem Noted Date Diagnosed Date [...] as of this encounter (statuses as of 11/26/2023) Immunizations Name Administration Dates Next Due COVID-19 mRNA, LNP-s, No Pre serve, 2-Dose Series ([employer]) 09/12/2021,01/25/2021,12/28/2020 Pneumococcal Conjugate Vacc, 13 Valent (Prevnar) [...] Description 03/04/2024 9:45 AM EDT Imaging Radiology [address] [place] [address] 05/25/2024 9:30 AM EDT Imaging Radiology, [address] [place] [address] 05/25/2024 10:00 AM EDT Office Visit Rheumatology [place] [id number] [facility] [place] [address] Hardeep Lynch MD [address] [place] [address] [place] [address] 07/10/2024 2:15 PM EDT Office Visit Dermatology [facility] [address] [facility] [place] [address] Freddie Freeman MD [address] [facility] [place] [address] Health Maintenance Due Date Last Done Comments Albumin/Creatinine Ratio 12/29/2021 019, 02/09/2016, 03/10/2015 *BISPHONATE OR OTHER ACCEPTABLE MEDICATION NEEDED FOR OSTEOPOROSIS (REFER TO SMARTSET #1146) 06/16/2022 Depression Screening 05/15/2023 05/15/2022 COVID-19 Vaccine ( season) 2023 03/23/2022, 09/12/2021, 01/25/2021, Additional history exists DXA Scan 05/15/2024 05/15/2022, 04/27, 04/14/2018, Additional history exists GFR 07/26/2024 07/26/2023, 08/28, 07/17/2022, Additional history exists DTaP,Tdap,and Td Vaccines (3 - Td or Tdap) 02/05/2033 02/05/2023, 08/30/2017, 07/06/2010 Pneumococcal Vaccine: 65+ Years Completed 10/14/2015, 07/06/2010 Zoster Vaccines Completed 12/17/2019, 09/27, 08/25/2013 VITAMIN D LEVEL ONCE IN A LIFETIME-USE SMARTSET# [id number] Completed 05/14/2022, 06/05/2021, 05/31/2020, Additional history exists [...] this encounter Medical Devices Implanted Type Area Reinspector Device Identifier Shelf Expiration Date Model / Serial / Lot Suture Steel 6 B&S19 M654g - [id number] Implanted:Qty: 4 on 01/30/2018 by Caleb Cruz MD at [place] [facility] [place] Stern JNJ : [employer] 08/27/2022 [id number] / / [id number] documented as of this encounter Procedures Procedure Name Priority Date/Time Associated Diagnosis Comments OUTSIDE LAB-CORONAVIRUS (COVID-19) Routine 11/25/2023 documented in this encounter Results * OUTSIDE LAB-CORONAVIRUS (COVID-19) (11/25/2023) [id number] E LAB NEGATIVE NEGATIVE OUTSIDE LAB (SEE SCANNED REPORT) 11/25/2023 History Per Patient LABORATORY OUTSIDE LAB (SEE SCANNED REPORT) documented in this encounter Advance Directives Latest Code Status on File Code Status Date Activated Date Inactivated Comments Full Code 01/30/2018 1:47 PM 02/05/2018 5:50 PM This o rder reflects the patients wishes and were consensually agreed upon. Care Teams Parking Lot Spotter Relationship Specialty Start Date End Date Nikita Brady MD [address] [place] [address] PCP - General Family Medicine 12/10/19 documented as of this encounter
--- OUTSIDE RECORDS SUMMARY | 2024-04-25 17:22 | External Medical Summary | Summary of Care ---
Author Name Unknown Organization [facility] Address [address] [place] [address] Phone [phone] Care Team Providers Care Web Site Project Manager Name Role Phone Nikita Brady MD Primary Care Provider [phone] Reason for Visit * Reason Comments Emergency Department Follow-Up ER f/u to diverticulitis was seen yesterday, has no other or new issues. Encounter Details Date Type Department Care Team (Late st Contact Info) Description 11/26/2023 11:00 AM EST Office Visit Family [facility] [address] [place] [address] Moni Freire PA-C [address] [facility] [address] Acute diverticulitis* Allergies Active Allergy Reactions Criticality Noted Date [...] bia re-entry tachycardia),Coron jimenez artery disease involving sho[place] coronary artery of sho[place]water heart without angina pectoris Take 1 Cap [...] 04/14/20 18 Coronary artery disease invo lving shoalwater coronary artery of sho[place] heart without angina pectoris 03/13/2018 S/P CABG [...] mRNA, LNP-s, No Pre serve, 2-Dose Series (IGIGI) 09/12/2021,01/25/2021,12/28/2020 Pneumococcal Conjugate Vacc, 13 Valent (Prevnar) [...] Q uit: 10/28/1991 Pipe Smokeless Tobacco: Never Tobacco Cessation:Counseling Given: Not Answered Comments:quit about 1991-pipe smoker Alcohol Use Standard Drinks/Week Comments Yes [...] on file documented as of this encounter Last Filed Vital Signs Vital Sign Reading Time Taken Comments Blood Pressure 100/50 11/26/2023 11:10 AM EST Pulse 67 11/26/2023 11:10 AM EST Temperature 36.4 C (97.5 F) 11/26/2023 11:[address] Respiratory Rate 16 11/26/2023 11:10 AM EST Oxygen Saturation - - Inhaled Oxygen Concentration - - Weight 107 kg (236 lb) 11/26/2023 11:10 AM EST Height - - Body Mass Index 30.3 01/25/2023 3:17 PM EDT documented in this encounter Functional Status Functional Status Response [...] No 01/29/2018 documented as of this encounter Progress Notes * Moni Freire PA-C - 11/26/2023 11:20 AM EST SUBJECTIVE: CC: Anson Maire is a 83 year old male who presents with ER f/u. HPI: Patient here for ED follow up. He was seen at [facility] on yesterday after onset of right lower abdomen pain 1-[address] abd/pelvis that reviewed acute diverticulitis of proximal sigmoid colon. He was discharged with augmentin 875mg BID x 7 days. He is here today for follow up. Pain is improved, 3/10 dull pain over right lower abdomen. He has never had anything like this before. No fever, chills, diarrhea, constipation, nausea, vomiting, weakness, rectal bleeding, black stools. Took acetaminophen around 10am, since not feeling well. There are no exam notes on file for this visit. 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 HTN, goal below 130/80 06/19/2018 HTN, goal below 140/90 Incomplete right bundle branch block 12/18/2017 Irritable bowel syndrome with diarrhea 07/10/2019 Lichen planus Long-term current use of steroids 11/07/2011 Mixed dyslipidemia Obesity, Class I, BMI 30.0-34.9 (see actual BMI) 05/15/2022 Other specified oesophagitis 2003 barretts-onPPI Paroxysmal atrial fibrillation (HCC) 06/27/2018 Pericarditis, chronic 05/22/2018 Recurrent major depressive disorder, in full remission (HCC) 12/11/2022 Sigmoid diverticulosis 12/11/2022 Supraventricular tachycardia 03/02/2019 Past Surgical History: Procedure Laterality Date CABG, ARTERIAL, SINGLE N/A 01/30/2018 CORONARY ARTERY BYPASS GRAFT USING ARTERY 1 GRAFT performed [place] C[place] Cruz [place] [facility] [place]G, ARTERY-VEIN, THREE 01/30/2018 CORONARY ARTERY BYPASS GRAFT ARTERIAL AND VENOUS 3 GRAFTS performed by Caleb Cruz MD [place] [facility] CARDIAC SURGERY PROCEDURE NEC 01/30/2018 UNLISTED PROCEDURE CARDIAC SURGERY performed [place] Caleb rCuz MD [place] [facility] [place]ONOSCOPY, DIAGNOSTIC (RECTUM) 08/23/2015 diverticulosis/COLONOSCOPY FLEXIBLE PROXIMAL DIAGNOSTIC performed by Lore Cottrell MD at ENDOSCOPY [facility] COLORECTAL CANCER SCREEN; COLON 08/24/2010 normal colon exam repeat in 5 years DENTAL SURGERY PROCEDURE NEC 1970 wisdom EGD, FLEXIBLE, DIAGNOSTIC 03/24/2013 path shows no eveidence of Barrretts although some inflammation present,repeat endoscopy in 3 years EGD, FLEXIBLE, DIAGNOSTIC 05/01/2016 normal bx, sm HH/ESOPHAGOGASTRODUODENOSCOPY (EGD), FLEXIBLE, TRANSORAL, DIAGNOSTIC performed by Edward Meyer MD at ENDOSCOPY [facility] EGD, FLEXIBLE, W/BIOPSY 01/05/10 benign fundic gland polp, esohageal BX's, negative for Garcia's, repeat in 3 years ENDO,VIDEO ASSIST HARVEST MARISA Left 01/30/2018 ENDOSCOPY VIDEO ASSISTED HARVEST VEIN performed [place] Caleb Cruz MD [place] [facility] OTHER eye sx for dropped lid x3 REMOVE CATARACT, INSERT LENS PROSTH 02/03/2013 Cataract extraction SACROILIAC JOINT INJECT W/GUIDANCE 08/20/2019 INJECTION SACROILIAC JOINT performed by Kris Sanches DO at OR [facility] SACROILIAC JOINT INJECT W/GUIDANCE 08/31/2019 INJECTION SACROILIAC JOINT performed by Kris Sanches DO at OR [facility] UNLISTED LAPAROSCOPY;HERNIA 1995 Hernia Repair Laparoscopic-right Social History Tobacco Use Smoking status: Former Packs/day: 0.50 Years: 30.00 Additional pack years: 0.00 Total pack years: 15.00 Types: Pipe, Cigarettes Quit date: 10/28/1991 Years since quittin.1 Smokeless tobacco: Never Tobacco comments: quit about 1991-pipe smoker Substance Use Topics Alcohol use: Yes Comment: 1 glasses wine/day Drug use: No Family History Problem Relation Age of Onset Other (Other) Mother cirrhois of liver age 44 Cancer Father lung- smoker Heart Disorder Father fatal [place] age 66 Other (Other) Brother AIDS mid 40's Outpatient Medications Marked as Taking for the 11/26/23 encounter (Office Visit) with Moni Freire PA-C Medication Sig Amoxicillin-Pot Clavulanate 875-125 MG Oral Tablet (Augmentin) Take 1 Tablet by mouth in the morning and 1 Tablet before bedtime. Furosemide 20 MG Oral Tablet (Lasix) TAKE ONE TABLET BY MOUTH DAILY IN MORNING ON MONDAYS, WEDNESDAYS, FRIDAYS, SATURDAYS Atorvastatin Calcium 40 MG Oral Tablet (Lipitor) TAKE 1 TABLET BY MOUTH EVERY DAY Gabapentin 100 MG Oral Capsule (Neurontin) TAKE 3 CAPS BY MOUTH TWICE DAILY Hydrocortisone Acetate 25 MG Rectal Suppository (Anusol-HC) Administer into the rectum 2 times a day in the morning and at bedtime as needed for Hemorrhoids. Up to 2 weeks. traMADol HCl 50 MG Oral Tablet (Ultram) Take 1 Tablet by mouth every 6 hours as needed for Pain, Severe. DULoxetine HCl 60 MG Oral Capsule Delayed Release Particles (Cymbalta) TAKE 2 CAPSULES BY MOUTH EVERY DAY Sotalol HCl 120 MG Oral Tablet TAKE 1 TABLET BY MOUTH TWICE A DAY Baclofen 10 MG Oral Tablet (Lioresal) TAKE 1 TABLET BY MOUTH EVERYDAY AT BEDTIME Tamsulosin HCl 0.4 MG Oral Capsule (Flomax) TAKE 2 CAPSULES BY MOUTH EVERY DAY Hyoscyamine Sulfate ER 0.375 MG Oral Tablet Extended Release 12 Hour (Levbid) Take 1 Tablet by mouth 2 times a day as needed for Cramping. For abdominal pain. Do not cut, crush or chew Ezetimibe 10 MG Oral Tablet (Zetia) TAKE 1 TABLET BY MOUTH EVERY DAY Lidocaine 4 % External Patch (Aspercreme) Place 1 Patch topically on the skin daily. oxyCODONE HCl 5 MG Oral Tablet (Oxy IR) Take 1 Tablet by mouth every 8 hours as needed. For pain. Aspirin 81 MG Oral Tablet Chewable Take 1 Tablet by mouth in the morning. Magnesium Oxide 400 MG Capsule Take 1 Cap by mouth daily. Calcium Carb-Cholecalciferol (CALCIUM + D3) 600-200 MG-UNIT per tablet Take 2 Tablets by mouth in the morning. NEXIUM 40 MG PO CPDR Take one capsule by mouth one time daily Review of patient's allergies indicates: Allergen Reactions Environmental [Pollen] Dust,mold OBJECTIVE: BP 100/50 | Pulse 67 | Temp 36.4 C (97.5 F) (Tympanic) | Resp 16 | Wt 107 kg (236 lb) | BMI 30.30 kg/m | BSA 2.36 m General appearance: awake, alert, no apparent distress, cooperative Head: Normocephalic, No masses, lesions, tenderness or abnormalities Heart: regular rate & rhythm, no gallops, and no murmurs Lungs: lungs clear to auscultation, no rales, wheezing, or rhonchi, and breathing non-labored ABDOMEN: abdomen soft, normal bowel sounds, no masses or organomegaly, no rebound or guarding, and + right lower abdomen, mild tenderness on palpation Skin: skin color, texture, turgor are normal, no rashes ASSESSMENT/PLAN: Acute diverticulitis (Primary) Clinically improving, pain improved, no change in BM. Continue soft diet for bowel rest for next 24 hours. Continued augmentin as prescribed. F/u with fever, change in bowel movement, rectal bleeding Patients goals for plan of care were discussed. Total time today including reviewing chart before the visit, pertinent labs, imaging reports, face to face time, and documentation time was 36 minutes. Follow up: Instructed to follow up or notify Primary Care Provider if no better in: 1-2 day(s), andto ER immediately if signs and symptoms worsen. Moni Freire PA-C [address] [place] [address] documented in this encounter Plan of Treatment Upcoming Encounters Date Type Department Care Team (Late st Contact Info) Description 03/04/2024 9:45 AM EDT Imaging Radiology [facility] [address] [place] [address] 05/25/2024 9:30 AM EDT [place], [address] [place] [address] 05/25/2024 10:00 AM EDT Office Visit [place]umatology [address] [place] [address] Hardeep Lynch MD [address] [place] [address] [place] [address] 07/10/2024 2:15 PM EDT Office Visit Dermatology [facility] [address] [facility] [place] [address] Freddie Freeman MD [address] [facility] [place] [address] Health Maintenance Due Date Last Done Comments [...] D LEVEL ONCE IN A LIFETIME-USE SMARTSET# [id number] Completed 05/14/2022, 06/05/2021, 05/31/2020, Additional history exists [...] this encounter Medical Devices Implanted Type Area Mall Manager Device Identifier Shelf Expiration Date Model / Serial / Lot Suture Steel 6 [id number] - [id number] Implanted:Qty: 4 on 01/30/2018 by Caleb Cruz MD [place] [facility] [place]um [place] : [employer] 08/27/2022 [id number] / / [id number] documented as of this encounter Visit Diagnoses Diagnosis Acute diverticulitis- Primary Diverticulitis of colon (without mention of hemorrhage) documented in this encounter Advance Directives Latest Code Status on File Code Status Date Activated Date Inactivated Comments Full Code 01/30/2018 1:47 PM 02/05/2018 5:50 PM This o rder reflects the patients wishes and were consensually agreed upon. Care Teams Web Site Project Manager Relationship Specialty Start Date End Date Nikita Brady MD [address] [facility] [place] [address] PCP - General Family Medicine 12/10/19 documented as of this encounter"
--- NOTE | 2024-04-25 17:38 | Emergency Department Note ---
Impression & Plan Atypical chest pain, HTN (hypertension) ED Provider Note Provider: Erik Mariano MD DATE OF SERVICE: 04/25/2024 CHIEF COMPLAINT: Left shoulder and chest discomfort HISTORY OF PRESENT ILLNESS: Patient is a 84-year-old gentleman history of tachybradycardia syndrome with pacemaker, hypertension, CAD with CABG, BPH, and CKD presenting here today stating that around 4:45 to 5 PM this afternoon driving back from the [place] did experience increased pain to the left shoulder left upper chest region. States he does have some arthritis initially thought it might be the. Denies any recent lifting. Denies any falls or syncope or dizziness. Does not remember being short of breath then and denies any shortness of breath now. No radiation of pain to the neck jaw back or right side of his chest or shoulder. States sometimes he has flares of his arthritis with the weather but it was improving which is not typical his arthritis OKmeter to be evaluated make sure it was not related to his heart. Did take 2 additional baby aspirin's prior to arrival. States again laying back in the stretcher he is has abdominal discomfort in the left shoulder chest region. It is a bit worse with movement. Denies other abdominal pain or nausea or vomiting. PAST MEDICAL HISTORY: As noted above MEDICATIONS: Reviewed home medications includes 81 aspirin SOCIAL HISTORY: Former smoker PHYSICAL EXAM: GENERAL: alert and oriented in no acute distress on stretcher Head: normocephalic and atraumatic EYES: No injection, discharge or icterus. EOMI. NECK: Trachea midline. ENT: Mucous membranes pink and moist. LUNGS: Airway patent. No retractions. Breath sounds clear with good air entry bilaterally. HEART: Regular rate and rhythm. Some slight left chest wall tenderness without crepitus ABDOMEN: Soft and non-tender, without guarding or rebound. SKIN: Acyanotic, warm, dry, without rashes EXTREMITIES: Without swelling, tenderness or deformity of the lower extremities with a bit of pain with ROM of the left shoulder without significant bony tenderness or obvious deformity. NEUROLOGICAL: No focal deficits. No aphasia. No facial droop or slurred speech. Normal strength and tone in the extremities. Sensation to gross touch normal. Ambulatory. EK bpm atrially paced rhythm without PVC. Right bundle branch block and left intrafascicular block noted with anterior T wave inversions and a QTc of 500. Compared to previous from November 25 of this year similar with may be slightly reduced intraventricular conduction delay. CONTINUOUS CARDIAC MONITORING: was ordered and showed a heart rate of 60s to 80s bpm in atrially paced rhythm Patient's laboratory studies and imaging reviewed. Differential includes Cardiac ischemia, aortic dissection, pulmonary embolism, pneumothorax, pneumonia, pericarditis, myocarditis, esophageal rupture, GERD, cholecystitis, pancreatitis, musculoskeletal, arthritis, as well as other pathologies. IMPRESSION/MEDICAL DECISION MAKING: Patient well-appearing not hypoxic or tachycardic here. EKG appears similar without STEMI obvious perhaps slight decrease in interventricular conduction delay. Experience some pain left chest left shoulder region within the past hour prior to arrival. Denies any falls or lifting or significant trauma. No syncope. No shortness of breath reported. Not hypoxic. Doubt this represents PE. Will obtain x-ray but lower suspicion for pneumonia pneumothorax. Does have history of CABG in the past. Did take additional aspirin prior to arriving here is on 81 aspirin normally. Basic blood work including troponin is sent. Question if this could be related to musculoskeletal issues and his underlying arthritis which is possible. Obviously somewhat of a difficult situation to know for sure given his age and risk factors. Benign abdomen otherwise and I doubt acute intra-abdominal pathology. Blood work here reassuring with a normal troponin and no significant electrolyte abnormalities, sign of renal dysfunction, hepatitis, or blood count abnormality. Chest x-ray reassuring per radiology compared to previous and shoulder x-ray does show evidence of some arthritic changes to the left shoulder. Discussed these findings with the patient on reevaluation and he reports that Did discuss with him given his risk factors he certainly would not be low risk and his quick presentation can sometimes limit sensitivity of troponin if symptoms started shortly before arrival. Patient's blood pressure also more elevated at this time and he was in agreement with the plan to stay for further cardiac evaluation given his age and risk factors for observation overnight. Not having any significant pain at this time however which is somewhat reassuring. Discussed with the hospitalist team who will evaluate the patient for observation. DIAGNOSIS: Atypical chest pain, hypertension DISPOSITION: Hospitalist will evaluate Patient was agreeable with this plan. 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 Abdullahi HLA-B27 spondyloarthropathy (Chronic) GERD (gastroesophageal reflux disease) (Chronic) Coronary artery disease (Chronic) s/p CABG x 4 01/2018 Osteoporosis (Chronic) Osteoarthritis (Chronic) BPH (benign prostatic hyperplasia) (Chronic) CKD (chronic kidney disease), stage III (Chronic) Polymyalgia rheumatica (Chronic) History of cataract surgery (Chronic) H/O hernia repair (Chronic) Hx of four vessel coronary artery bypass graft (Chronic) "01/30/18 at [facility]" Hx of prior ablation treatment (Chronic) "12/09/17" History of cataract extraction (Chronic) Medical History (Updated 04/25/24 @ 21:11 by Erik Mariano M.D.) Recurrent falls Family History Mother , 44 Cirrhosis, Onset Age: 44 Father , 66 Lung cancer Coronary heart disease Myocardial infarction Other Hypertension Social History (Updated 08/11/23 @ 15:00 by John Tamayo DO) Smoking Status: Former smoker Tobacco Type: Cigarettes Cigarettes Per Day: 1/2 ppd; Second Hand Exposure: No; Hx Alcohol Use: No Hx Substance Use: No Preferred Language: Citizen Of [place] Communication Ability: Effective De[employer] Required: No Beliefs That Will Affect Care: None marital status: Single Current Living Situation: Alone Current Living Situation Comment: Lives alone, has significant other that lives next door current occupational status: retired 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 [employer] Feels Safe at Home: Yes Assistive Devices: Cane Allergies Allergies Allergy/AdvReac Type Severity Reaction Status Date / Time house dust Allergy Intermediate SNEEZING, Verified 04/25/24 19:00 CONGESTION mold Allergy Intermediate SNEEZING, Verified 04/25/24 19:00 CONGESTION pollen extracts Allergy Intermediate SNEEZING, Verified 04/25/24 19:00 CONGESTION Home Meds Home Medications Medication Instructions Recorded Confirmed atorvastatin 40 mg tablet 40 mg PO HS 12/21/18 04/25/24 calcium carbonate 500 mg-vitamin 1 tab PO BID 12/21/18 04/25/24 D3 5 mcg (200 unit) tablet (Calcium 500 + D) furosemide 20 mg tablet 20 mg PO 4XWK 12/21/18 04/25/24 gabapentin 100 mg capsule 300 mg PO BID 12/21/18 04/25/24 magnesium oxide 400 mg PO QPM 12/21/18 04/25/24 tamsulosin 0.4 mg capsule 0.4 mg PO AMPM 12/21/18 04/25/24 sotalol 120 mg tablet 120 mg PO BID 04/14/19 04/25/24 baclofen 10 mg tablet 10 mg PO HS 08/07/23 04/25/24 duloxetine 60 mg capsule,delayed 120 mg PO QAM 08/07/23 04/25/24 release ezetimibe 10 mg tablet 10 mg PO QAM 08/07/23 04/25/24 tramadol 50 mg tablet 50 mg PO Q6 PRN pain,severe 08/07/23 04/25/24 hydrocortisone 2.5 % topical cream 1 applic AL BID PRN Hemorrhoids 04/25/24 04/25/24 with perineal applicator (Anusol-HC) oxycodone 5 mg tablet 5 mg PO Q8H PRN Pain 04/25/24 04/25/24 Previous Rx's Medication Instructions Recorded aspirin 81 mg tablet,delayed 81 mg PO QAM #30 tabs 08/12/23 release Results & Data (ED) Vital Signs Vital Signs - 24 hr 04/25/24 17:17 04/25/24 17:20 04/25/24 17:42 Temperature 36.7 C Temperature Source Temporal Artery Scan Pulse Rate 80 60 60 Pulse Rate [Left Finger] Pulse Rhythm Regular Respiratory Rate 18 18 Respiratory Effort / Characteristics Non-Labored Respiratory Depth Normal Blood Pressure 145/90 H Blood Pressure [Left Arm] Blood Pressure Mean 108 Blood Pressure Mean [Left Arm] Blood Pressure Position [Left Arm] Pulse Oximetry 96 98 Oxygen Delivery Method Room Air Room Air Sepsis Recent Fever Within 48 Hours No Sepsis New/Unexplained Change in Mental Status No Sepsis Action Taken by Nursing No Action Required 04/25/24 18:52 Temperature Temperature Source Pulse Rate Pulse Rate [Left Finger] 66 Pulse Rhythm Respiratory Rate 18 Respiratory Effort / Characteristics Respiratory Depth Blood Pressure Blood Pressure [Left Arm] 183/94 H Blood Pressure Mean Blood Pressure Mean [Left Arm] 123 Blood Pressure Position [Left Arm] Sitting Pulse Oximetry 98 Oxygen Delivery Method Room Air Sepsis Recent Fever Within 48 Hours Sepsis New/Unexplained Change in Mental Status Sepsis Action Taken by Nursing Laboratory Data 04/25/24 17:35 04/25/24 17:35 Lab Results 04/25/24 Range/Units 17:35 WBC 4.77 L (4.8-10.8) K/ul RBC 4.31 L (4.70-6.10) M/uL Hgb 13.5 L (14.0-18.0) g/dl Hct 39.5 L (42.0-52.0) % MCV 91.6 (80.0-100.0) fL MCH 31.3 (25.0-34.0) pg MCHC 34.2 (32.0-36.0) g/dL RDW Std Deviation 45.0 (36.4-46.3) fL RDW Coeff of Priya 13.4 (11.5-14.5) % Plt Count 201 (130-400) K/uL MPV 9.7 (9.4-12.4) fL Immature Gran % (Auto) 0.8 % Neut % (Auto) 59.2 % Lymph % (Auto) 28.5 % [place] % (Auto) 7.5 % Eos % (Auto) 3.6 % Baso % (Auto) 0.4 % Neut # (Auto) 2.82 (1.40-6.50) K/uL Lymph # (Auto) 1.36 (1.20-3.40) K/uL [place] # (Auto) 0.36 (0.11-0.59) K/uL Eos # (Auto) 0.17 (0.00-0.50) K/uL Baso # (Auto) 0.02 (0.00-0.20) K/uL Immature Gran # (Auto) 0.04 (0.01-0.20) K/uL PT 10.4 (9.0-12.0) Seconds INR 1.0 (0.9-1.1) Sodium 139 (136-145) mmol/L Potassium 4.2 (3.5-5.1) mmol/L Chloride 104 (98-107) mmol/L Carbon Dioxide 30 (21-32) mmol/L Anion Gap 5 (3-11) BUN 18 (6-23) mg/dl Creatinine 0.93 (0.6-1.4) mg/dl Est Cr Clr Drug Dosing 79.4 ml/min Est GFR ( Amer) 87.7 ml/min Est GFR (Non-Af Amer) 75.7 ml/min BUN/Creatinine Ratio 19.4 (10-20) Glucose 105 H (70-99(Fasting)) mg/dl Calcium 9.2 (8.6-10.3) mg/dl Total Bilirubin 0.8 (0.2-1.0) mg/dl AST 21 (13-39) U/L ALT 21 (7-52) U/L Alkaline Phosphatase 69 (34-104) U/L Troponin I High Sens 5.2 (0-20) pg/ml Total Protein 6.9 (6.0-8.3) gm/dl Albumin 4.1 (3.4-5.0) gm/dl Globulin 2.8 (2.5-4.0) gm/dl Albumin/Globulin Ratio 1.5 (0.9-2) Lipase 30 (11-82) U/L Imaging Data Radiologist's Impression: Chest X-Ray 04/25/24 17:22 XR chest 1V portable CLINICAL HISTORY: Chest pain, nonspecific COMPARISON STUDY: Chest radiograph November 25, 2023. FINDINGS: Median sternotomy wires, left atrial appendage occluder device and left subclavian pacer are in place. Cardiomediastinal silhouette is stable. There is no pneumothorax or pleural effusion. Linear bibasilar densities represent atelectasis. No consolidation. The appearance of the chest is unchanged. IMPRESSION: No acute cardiopulmonary findings. No change in appearance of the chest. ACT 112: Negative or not required by law. Electronically signed by: Kishor Lew M.D. 04/25/2024 6:28 PM Shoulder X-Ray 04/25/24 17:28 XR shoulder LT min 2V routine CLINICAL HISTORY: Left shoulder pain. COMPARISON: None FINDINGS: Left subclavian pacer, median sternotomy wires and left atrial appendage occluder device are incidentally noted. Alignment of the left shoulder is anatomic. There is no acute fracture. There is severe joint space narrowing with osteophytosis of the glenohumeral joint. There is moderate AC joint osteoarthritis. IMPRESSION: 1. No fracture or dislocation within the left shoulder. 2. Severe left glenohumeral joint osteoarthritis. ACT 112: Negative or not required by law. Electronically signed by: Kishor Lew M.D. 04/25/2024 6:29 PM Discharge Plan Visit Data Chief Complaint: Cardiac Assessment Stated Complaint: CHEST PAIN, LEFT SIDE TIGHTNESS ED Provider: Erik Mariano Discharge Problem: Atypical chest pain, HTN (hypertension) Patient Disposition: Being Evaluated by Hospitalist Forms Stand Alone Forms: My [facility] [id number] Prescriptions Prescriptions: No Action sotalol 120 mg tablet 120 mg PO BID atorvastatin 40 mg tablet 40 mg PO HS tamsulosin 0.4 mg capsule 0.4 mg PO AMPM furosemide 20 mg tablet 20 mg PO 4XWK Rx Instructions: TAKES ON MON,WEDS,FRI,SAT gabapentin 100 mg capsule 300 mg PO BID calcium carbonate-vitamin D3 [Calcium 500 + D] 500 mg(1,250mg) -200 unit Tablet 1 tab PO BID magnesium oxide 400 mg Capsule 400 mg PO QPM tramadol 50 mg tablet 50 mg PO Q6 PRN (Reason: pain,severe) baclofen 10 mg tablet 10 mg PO HS duloxetine 60 mg capsule,delayed release(DR/EC) 120 mg PO QAM ezetimibe 10 mg tablet 10 mg PO QAM aspirin 81 mg Tablet,Delayed Release (Dr/Ec) 81 mg PO QAM Qty: 30 0RF hydrocortisone [Anusol-HC] 2.5 % Cream With Perineal Applicator 1 applic AL BID PRN (Reason: Hemorrhoids) oxycodone 5 mg Tablet 5 mg PO Q8H PRN (Reason: Pain) Rx Instructions: PER JONATHAN, UNABLE TO VERIFY WITH EXT MED HX. Referrals Referrals: Nikita Brady MD [Primary Care Provider] -
[2024-04-25 17:58] LABS: Basophils # (auto) 0.02 K/uL (0.00-0.20); Basophils % (auto) 0.4 %; Eosinophils # (auto) 0.17 K/uL (0.00-0.50); Eosinophils % (auto) 3.6 %; Hematocrit (blood only) 39.5 % (42.0-52.0); Hemoglobin 13.5 g/dl (14.0-18.0); Immature Granulocytes # (auto) 0.04 K/uL (0.01-0.20); Immature Granulocytes % (auto) 0.8 %; Lymphocytes # (auto) 1.36 K/uL (1.20-3.40); Lymphocytes % (auto) 28.5 %; Mean Corpuscular Hemoglobin 31.3 pg (25.0-34.0); Mean Corpuscular Hgb Conc 34.2 g/dL (32.0-36.0); Mean Corpuscular Volume 91.6 fL (80.0-100.0); Mean Platelet Volume 9.7 fL (9.4-12.4); Monocytes # (auto) 0.36 K/uL (0.11-0.59); Monocytes % (auto) 7.5 %; Neutrophils # (auto) 2.82 K/uL (1.40-6.50); Neutrophils % (auto) 59.2 %; Platelet Count 201 K/uL (130-400); RDW Coefficient of Variation 13.4 % (11.5-14.5); Red Blood Count 4.31 M/uL (4.70-6.10); White Blood Count 4.77 K/ul (4.8-10.8)
[2024-04-25 18:08] LABS: Albumin Globulin Ratio 1.5 (0.9-2); Albumin Level 4.1 gm/dl (3.4-5.0); BUN Creatinine Ratio 19.4 (10-20); Bilirubin,Total 0.8 mg/dl (0.2-1.0); Calcium 9.2 mg/dl (8.6-10.3); Creatinine Clr Calc Pharmacy 79.4 ml/min; Est GFR (African American) 87.7 ml/min; Est GFR (Non-African American) 75.7 ml/min; Globulin 2.8 gm/dl (2.5-4.0); Potassium 4.2 mmol/L (3.5-5.1); Total Protein 6.9 gm/dl (6.0-8.3)
[2024-04-25 18:15] LABS: Troponin I High Sensitivity 5.2 pg/ml (0-20)
[2024-04-25 18:19] LABS: Prothrombin Time 10.4 Seconds (9.0-12.0)
--- NOTE | 2024-04-25 18:29 | XRay Report ---
XR chest 1V portable CLINICAL HISTORY: Chest pain, nonspecific COMPARISON STUDY: Chest radiograph November 25, 2023. FINDINGS: Median sternotomy wires, left atrial appendage occluder device and left subclavian pacer ar e in place. Cardiomediastinal silhouette is stable. There is no pneumothorax or pleural effusion. [place] ear bibasilar densities represent atelectasis. No consolidation. The appearance of the chest is uncha nged. IMPRESSION: No acute cardiopulmonary findings. No change in appearance of the chest. ACT 112: Negative or not required by law. Electronically signed by: Kishor Lew M.D. 04/25/2024 6:28 PM
--- NOTE | 2024-04-25 18:30 | XRay Report ---
XR shoulder LT min 2V routine CLINICAL HISTORY: Left shoulder pain. COMPARISON: None FINDINGS: Left subclavian pacer, median sternotomy wires and left atrial appendage occluder device a re incidentally noted. Alignment of the left shoulder is anatomic. There is no acute fracture. There is severe joint space narrowing with osteophytosis of the glenohumeral joint. There is moderate AC taiwo int osteoarthritis. IMPRESSION: 1. No fracture or dislocation within the left shoulder. 2. Severe left glenohumeral joint osteoarthritis. ACT 112: Negative or not required by law. Electronically signed by: Kishor Lew M.D. 04/25/2024 6:29 PM
--- NOTE | 2024-04-25 21:10 | History & Physical Report ---
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 Around 4 PM when he was driving car he noticed left sided chest pain and left shoulder pain. He has arthritis in the left shoulder and has chronic pain but this pain seemed more intense this reason he came to the ER. Patient says the pain did not last too long. Later he took some aspirin. Currently patient states pain is completely resolved. No nausea. Was somewhat sweating. No dizziness. No shortness of breath. No cough. No fevers. No headache. Currently vision is okay. No runny nose or sore throat. No difficulty swallowing. Appetite is okay. No abdominal pain. Normal bowel and bladder movements. Currently resting comfortably and hemodynamically stable. Chest pain history of CAD s/p CABG initial workup unremarkable currently pain resolved will follow serial cardiac enzymes and echo telemetry consult cardiology in a.m. 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 full code. History of Present Illness Chief Complaint: Chest pain . 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 Around 4 PM when he was driving car he noticed left sided chest pain and left shoulder pain. He has arthritis in the left shoulder and has chronic pain but this pain seemed more intense this reason he came to the ER. Patient says the pain did not last too long. Later he took some aspirin. Currently patient states pain is completely resolved. No nausea. Was somewhat sweating. No dizziness. No shortness of breath. No cough. No fevers. No headache. Currently vision is okay. No runny nose or sore throat. No difficulty swallowing. Appetite is oka y. No abdominal pain. Normal bowel and bladder movements. Currently resting comfortably and hemodynamically stable. Past medical history. As mentioned above past surgical history. CABG. Colonoscopy. Dental surgery. EGD. EGD with biopsy. Cataracts. Sacroiliac joint injection. Laparoscopic right hernia repair. Social history.. Quit smoking 1991. Smoked for 30 years. Alcohol 1 glass of wine a day. No drug use. Family history. Father had lung cancer. Fatal ID at age of 66. Brother of Aids mid 40s. Mother had cirrhosis of liver and at age 44. Allergies Allergy/AdvReac Type Severity Reaction Status Date / Time house dust Allergy Intermediate SNEEZING, Verified 04/25/24 19:00 CONGESTION mold Allergy Intermediate SNEEZING, Verified 04/25/24 19:00 CONGESTION pollen extracts Allergy Intermediate SNEEZING, Verified 04/25/24 19:00 CONGESTION Home Medications Medication Instructions Recorded Confirmed Type atorvastatin 40 mg tablet 40 mg PO HS 12/21/18 04/25/24 History calcium carbonate 500 mg-vitamin 1 tab PO BID 12/21/18 04/25/24 History D3 5 mcg (200 unit) tablet (Calcium 500 + D) furosemide 20 mg tablet 20 mg PO 4XWK 12/21/18 04/25/24 History gabapentin 100 mg capsule 300 mg PO BID 12/21/18 04/25/24 History magnesium oxide 400 mg PO QPM 12/21/18 04/25/24 History tamsulosin 0.4 mg capsule 0.4 mg PO AMPM 12/21/18 04/25/24 History sotalol 120 mg tablet 120 mg PO BID 04/14/19 04/25/24 History baclofen 10 mg tablet 10 mg PO HS 08/07/23 04/25/24 History duloxetine 60 mg capsule,delayed 120 mg PO QAM 08/07/23 04/25/24 History release ezetimibe 10 mg tablet 10 mg PO QAM 08/07/23 04/25/24 History tramadol 50 mg tablet 50 mg PO Q6 PRN pain,severe 08/07/23 04/25/24 History aspirin 81 mg tablet,delayed 81 mg PO QAM #30 tabs 08/12/23 04/25/24 Rx release hydrocortisone 2.5 % topical cream 1 applic TX BID PRN Hemorrhoids 04/25/24 04/25/24 History with perineal applicator (Anusol-HC) oxycodone 5 mg tablet 5 mg PO Q8H PRN Pain 04/25/24 04/25/24 History Past Med/Surg History Problem List Atypical chest pain (Acute) Chest pain Left leg swelling Scalp hematoma Left leg cellulitis Hematoma of left thigh Anemia (Acute) Anticoagulated (Acute) Ambulatory dysfunction (Acute) Acute leg pain (Acute) Cellulitis of leg (Acute) Tachy-narciso syndrome Left foot drop Atrial fibrillation Sinus node dysfunction History of atrial flutter DVT prophylaxis RBBB (right bundle branch block with left anterior fascicular block) AVNRT (AV iba re-entry tachycardia) Dyslipidemia (Chronic) HTN (hypertension) (Chronic) Lichen planus (Chronic) on chronic prednisone therapy, follows Dr. Abdullahi HLA-B27 spondyloarthropathy (Chronic) GERD (gastroesophageal reflux disease) (Chronic) Coronary artery disease (Chronic) s/p CABG x 4 01/2018 Osteoporosis (Chronic) Osteoarthritis (Chronic) BPH (benign prostatic hyperplasia) (Chronic) CKD (chronic kidney disease), stage III (Chronic) Polymyalgia rheumatica (Chronic) History of cataract surgery (Chronic) H/O hernia repair (Chronic) Hx of four vessel coronary artery bypass graft (Chronic) "01/30/18 at [facility]" Hx of prior ablation treatment (Chronic) "12/09/17" History of cataract extraction (Chronic) Medical History (Updated 04/25/24 @ 21:11 by Erik Mariano M.D.) Recurrent falls Family History Mother , 44 Cirrhosis, Onset Age: 44 Father , 66 Lung cancer Coronary heart disease Myocardial infarction Other Hypertension Social History (Updated 08/11/23 @ 15:00 by John Tamayo DO) Smoking Status: Former smoker Tobacco Type: Cigarettes Cigarettes Per Day: 1/2 ppd; Second Hand Exposure: No; Do You Dip or Chew Tobacco: No; Tobacco Cessation Education Requested by Patient: No Hx Alcohol Use: Yes Alcohol type: beer Alcohol Intake Frequency Comment: 1 glass of wine daily Hx Substance Use: No Preferred Language: Syriac Communication Ability: Effective Supervisor Irrigation Required: No Beliefs That Will Affect Care: None marital status: Single Current Living Situation: Alone Current Living Situation Comment: Lives alone, has significant other that lives next door current occupational status: retired 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 ENT- oropharynx clear Neck- supple, no JVD. Lungs- clear to auscultation no wheezing or crackles. Heart- regular rate and rhythm; no murmur, no gallop. Abdomen- normal bowel sounds, soft, nontender, no distension. Extremities- no pretibial edema, no erythema seen.Painful left shoulder movements Neuro- alert, oriented x 3; PERRL, no facial palsy; no dysarthria; moves extremities. Results & Data Results & Data Vital Signs (Past 12 Hours) Vital Signs Temp Pulse Pulse Resp BP BP Pulse Ox 04/25/24 18:52 66 18 183/94 H 98 04/25/24 17:42 60 04/25/24 17:20 60 18 98 04/25/24 17:17 36.7 C 80 18 145/90 H 96 O2 Del Method 04/25/24 18:52 Room Air 04/25/24 17:42 04/25/24 17:20 Room Air 04/25/24 17:17 Room Air Diagnostic Findings Laboratory Results WBC 4.77 K/ul (4.8-10.8) L 04/25/24 17:35 RBC 4.31 M/uL (4.70-6.10) L 04/25/24 17:35 Hgb 13.5 g/dl (14.0-18.0) L 04/25/24 17:35 Hct 39.5 % (42.0-52.0) L 04/25/24 17:35 MCV 91.6 fL (80.0-100.0) 04/25/24 17:35 MCH 31.3 pg (25.0-34.0) 04/25/24 17:35 MCHC 34.2 g/dL (32.0-36.0) 04/25/24 17:35 RDW Std Deviation 45.0 fL (36.4-46.3) 04/25/24 17:35 RDW Coeff of Priya 13.4 % (11.5-14.5) 04/25/24 17:35 Plt Count 201 K/uL (130-400) 04/25/24 17:35 MPV 9.7 fL (9.4-12.4) 04/25/24 17:35 Immature Gran % (Auto) 0.8 % 04/25/24 17:35 Neut % (Auto) 59.2 % 04/25/24 17:35 Lymph % (Auto) 28.5 % 04/25/24 17:35 Mcminn % (Auto) 7.5 % 04/25/24 17:35 Eos % (Auto) 3.6 % 04/25/24 17:35 Baso % (Auto) 0.4 % 04/25/24 17:35 Neut # (Auto) 2.82 K/uL (1.40-6.50) 04/25/24 17:35 Lymph # (Auto) 1.36 K/uL (1.20-3.40) 04/25/24 17:35 Mcminn # (Auto) 0.36 K/uL (0.11-0.59) 04/25/24 17:35 Eos # (Auto) 0.17 K/uL (0.00-0.50) 04/25/24 17:35 Baso # (Auto) 0.02 K/uL (0.00-0.20) 04/25/24 17:35 Immature Gran # (Auto) 0.04 K/uL (0.01-0.20) 04/25/24 17:35 PT 10.4 Seconds (9.0-12.0) 04/25/24 17:35 INR 1.0 (0.9-1.1) 04/25/24 17:35 Sodium 139 mmol/L (136-145) 04/25/24 17:35 Potassium 4.2 mmol/L (3.5-5.1) 04/25/24 17:35 Chloride 104 mmol/L (98-107) 04/25/24 17:35 Carbon Dioxide 30 mmol/L (21-32) 04/25/24 17:35 Anion Gap 5 (3-11) 04/25/24 17:35 BUN 18 mg/dl (6-23) 04/25/24 17:35 Creatinine 0.93 mg/dl (0.6-1.4) 04/25/24 17:35 Est Cr Clr Drug Dosing 79.4 ml/min 04/25/24 17:35 Est GFR ( Amer) 87.7 ml/min 04/25/24 17:35 Est GFR (Non-Af Amer) 75.7 ml/min 04/25/24 17:35 BUN/Creatinine Ratio 19.4 (10-20) 04/25/24 17:35 Glucose 105 mg/dl (70-99(Fasting)) H 04/25/24 17:35 Calcium 9.2 mg/dl (8.6-10.3) 04/25/24 17:35 Total Bilirubin 0.8 mg/dl (0.2-1.0) 04/25/24 17:35 AST 21 U/L (13-39) 04/25/24 17:35 ALT 21 U/L (7-52) 04/25/24 17:35 Alkaline Phosphatase 69 U/L (34-104) 04/25/24 17:35 Troponin I High Sens 5.2 pg/ml (0-20) 04/25/24 17:35 Total Protein 6.9 gm/dl (6.0-8.3) 04/25/24 17:35 Albumin 4.1 gm/dl (3.4-5.0) 04/25/24 17:35 Globulin 2.8 gm/dl (2.5-4.0) 04/25/24 17:35 Albumin/Globulin Ratio 1.5 (0.9-2) 04/25/24 17:35 Lipase 30 U/L (11-82) 04/25/24 17:35 Impressions Chest X-Ray 04/25/24 17:22 XR chest 1V portable CLINICAL HISTORY: Chest pain, nonspecific COMPARISON STUDY: Chest radiograph November 25, 2023. FINDINGS: Median sternotomy wires, left atrial appendage occluder device and left subclavian pacer are in place. Cardiomediastinal silhouette is stable. There is no pneumothorax or pleural effusion. Linear bibasilar densities represent atelectasis. No consolidation. The appearance of the chest is unchanged. IMPRESSION: No acute cardiopulmonary findings. No change in appearance of the chest. ACT 112: Negative or not required by law. Electronically signed by: Kishor Lew M.D. 04/25/2024 6:28 PM Shoulder X-Ray 04/25/24 17:28 XR shoulder LT min 2V routine CLINICAL HISTORY: Left shoulder pain. COMPARISON: None FINDINGS: Left subclavian pacer, median sternotomy wires and left atrial appendage occluder device are incidentally noted. Alignment of the left shoulder is anatomic. There is no acute fracture. There is severe joint space narrowing with osteophytosis of the glenohumeral joint. There is moderate AC joint osteoarthritis. IMPRESSION: 1. No fracture or dislocation within the left shoulder. 2. Severe left glenohumeral joint osteoarthritis. ACT 112: Negative or not required by law. Electronically signed by: Kishor Lew M.D. 04/25/2024 6:29 PM ECG Additional Comments: ECG. Atrial paced rhythm with prolonged AV conduction rate of 86. Right bundle branch block. Left anterior fascicle block. Bibasilar block. Code Status & VTE Plan VTE Prophylaxis Plan VTE Prophylaxis will be ordered: Yes
[2024-04-25] MEDS ORDERED: oxyCODONE HCL IR 5 MG TAB (IMMEDIATE RELEASE) PO PRN (22:26)
[2024-04-25] MEDS ORDERED: NITROGLYCERIN SL 0.4 MG/TAB TAB SL PRN (22:26)
[2024-04-25] MEDS ORDERED: POLYETHYLENE (MIRALAX) 17 GM PACK PO PRN (22:26)
[2024-04-25] MEDS ORDERED: ACETAMINOPHEN 325 MG TAB PO PRN (22:26)
[2024-04-25] MEDS ORDERED: HYDROCORTISONE HC 2.5% CRM 30GM TUBE EXT PRN (22:26)
[2024-04-25] MEDS: GABAPENTIN 300 MG CAP PO SCH (23:00)
[2024-04-25] MEDS: CALCIUM 600MG + VIT D 400 IU TAB PO SCH (23:00)
[2024-04-25] MEDS: MAGNESIUM OXIDE 400 MG TAB PO SCH (23:00)
[2024-04-25] MEDS: TAMSULOSIN HCL 0.4 MG CAP PO SCH (23:00)
[2024-04-25] MEDS: BACLOFEN 10 MG TAB PO SCH (23:01)
[2024-04-25] MEDS: ATORVASTATIN 40 MG TAB PO SCH (23:01)
[2024-04-25] MEDS: SOTALOL HCL 80 MG TAB PO SCH (23:01)
[2024-04-26 06:05] LABS: BUN Creatinine Ratio 19.8 (10-20); Calcium 9.1 mg/dl (8.6-10.3); Est GFR (African American) 95.3 ml/min; Est GFR (Non-African American) 82.2 ml/min; Magnesium 1.9 mg/dl (1.7-2.4); Potassium 3.9 mmol/L (3.5-5.1)
[2024-04-26 06:07] LABS: Basophils # (auto) 0.02 K/uL (0.00-0.20); Basophils % (auto) 0.5 %; Eosinophils # (auto) 0.15 K/uL (0.00-0.50); Eosinophils % (auto) 3.9 %; Hematocrit (blood only) 37.3 % (42.0-52.0); Hemoglobin 12.5 g/dl (14.0-18.0); Immature Granulocytes # (auto) 0.02 K/uL (0.01-0.20); Immature Granulocytes % (auto) 0.5 %; Lymphocytes # (auto) 1.12 K/uL (1.20-3.40); Lymphocytes % (auto) 28.9 %; Mean Corpuscular Hemoglobin 30.6 pg (25.0-34.0); Mean Corpuscular Hgb Conc 33.5 g/dL (32.0-36.0); Mean Corpuscular Volume 91.4 fL (80.0-100.0); Mean Platelet Volume 9.8 fL (9.4-12.4); Monocytes # (auto) 0.36 K/uL (0.11-0.59); Monocytes % (auto) 9.3 %; Neutrophils % (auto) 56.9 %; Platelet Count 189 K/uL (130-400); RDW Coefficient of Variation 13.4 % (11.5-14.5); RDW Standard Deviation 44.7 fL (36.4-46.3); Red Blood Count 4.08 M/uL (4.70-6.10); White Blood Count 3.87 K/ul (4.8-10.8)
[2024-04-26] MEDS: EZETIMIBE 10 MG TAB PO SCH (07:32)
[2024-04-26] MEDS: DULoxetine HCL 60 MG CAP PO SCH (07:32)
[2024-04-26] MEDS: ASPIRIN 81 MG ECTAB PO SCH (07:32)
--- NOTE | 2024-04-26 07:36 | Cardiology Consultation ---
Date of Consultation April 26, 2024 Assessment & Plan (1) Atypical chest pain: (2) Coronary artery disease: (3) AVNRT (AV bia re-entry tachycardia): (4) RBBB (right bundle branch block with left anterior fascicular block): (5) Sinus node dysfunction: (6) Atrial fibrillation: (7) HLA-B27 spondyloarthropathy: Plan Assessment: 84 year old male with history of CAD presents with left shoulder pain sudden onset with radiation into left axilla and clavicle region. Cardiology consultation requested due to history Plan: -patient with Atypical chest pain, resolved prior to admission. EKG without acute changes, Troponin negative x3. -Echocardiogram obtained in the setting of patient's history of coronary disease which demonstrates normal LVEF, no wall motion abnormality and no significant valvular pathology. -Hx of P.A-fib as well as AVNRT with prior ablation, Tachy-narciso/sinus node dysfunction s/p PPM with recent normal device interrogation. No events or arrhythmia noted on telemetry during course of this hospitalization. -Given patient's cardiac testing/work-up, and patient's atypical symptoms, the threshold for cardiac concern is low. No further cardiac work-up is needed -BP above target, prior to AM medications. -Continue GDMT with ASA 81mg, Atorvastatin, Zetia, Furosemide and Sotalol. -Euvolemic on exam. -Symptoms likely s/t to patient's known PMR/ Spondyloarthropathy. Instructed that he should keep his routine follow-up with Rheumatology. -Recommend that patient have a routine cardiology follow up with our dept in 4-6 weeks. Case has been discussed with Dr. Santos. Further recommendations regarding plan of care as per his assessment. I spent a total of 40 minutes on the date of service in preparation, delivery, documentation of the care provided to the patient excluding any time spent in the performance of separately billed services. ROSIE Aguila [facility] Supervising Physician Co-Signing Physician Notes I have personally performed a history and physical examination on the patient. I have reviewed the advance practitioner's documentation, and I agree with, and take responsibility for the plan of care. 84-year-old male with history of complex coronary disease and coronary artery bypass grafting as noted above presented to the ER with left shoulder, axilla, left-sided chest discomfort. No evidence of acute coronary syndrome or dysrhythmia during observation. Repeat resting 2D transthoracic echocardiogram demonstrating preserved LV function without regional wall motion abnormality. Patient currently asymptomatic. No further inpatient cardiac testing or intervention recommended at this time. Continue outpatient cardiac medications as noted above. Will arrange for outpatient cardiology follow-up. Thank you for allow me to participate in the care of your patient. I spent a total of 30 minutes on the date of service in preparation, delivery, and documentation of the care provided to this patient, excluding any time spent in the performance of separately billed services. Anson Santos DO, [facility] History of Present Illness Reason for Consultation: Chest pain Requesting Physician: Rachele helton Attending Physician: Clementine Purdy MD History of Present Illness HPI: Patient is a 84 year old male with PMHx as noted below that presents with complaints of chest pain and left shoulder pain. Reports that it started yesterday afternoon while driving his car. Upon speaking with patient today, he reports that he developed a aching sensation in his left shoulder which spread into the left axilla and outer clavicle region. Did not spread into his chest wall. Denies any substernal or retrosternal pain. Denies any pain in the jaw, neck or into his back. Denies any associated symptoms with the discomfort. No light-headedness/dizziness, no shortness of breath or diaphoresis. Pain lasted minutes to an hour, left feeling just achy. he opted to present for evaluation given his complex medical history. Patient has been pain free since admission. PMHx: 1. Chronic coronary heart disease, status post CABG x4, January 2018 2. AVNRT s/p unsuccessful ablation, sinus node dysfunction s/p PPM implantation Nov 2018. 3. PAF, atrial arrhythmias, now on sotalol and coumadin. Hx of surgical ligation of LA appendage at time of CABG 4. Recurrent pericarditis post CABG- improved. 5. Incomplete right bundle branch block 6. Prior caval tricuspid isthmus ablation for atrial flutter in November 2017 7. Polymyalgia rheumatica, HLA B27 spondyloarthropathy, lichen planus for which patient had been on chronic prednisone prior to the diagnosis of his cardiac disease 8. 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 QTc 500ms. Unchanged when compared with last OP EKG 03/06/23 Echocardiogram ordered/pending chest xray: Negative for acute process left shoulder x-ray: IMPRESSION: 1. No fracture or dislocation within the left shoulder. 2. Severe left glenohumeral joint osteoarthritis. High sensitivity troponin negative x3 Review of telemetry demonstrates a paced rhythm, no acute events overnight. Allergies Allergy/AdvReac Type Severity Reaction Status Date / Time house dust Allergy Intermediate SNEEZING, Verified 04/25/24 19:00 CONGESTION mold Allergy Intermediate SNEEZING, Verified 04/25/24 19:00 CONGESTION pollen extracts Allergy Intermediate SNEEZING, Verified 04/25/24 19:00 CONGESTION Home Medications Medication Instructions Recorded Confirmed Type atorvastatin 40 mg tablet 40 mg PO HS 12/21/18 04/25/24 History calcium carbonate 500 mg-vitamin 1 tab PO BID 12/21/18 04/25/24 History D3 5 mcg (200 unit) tablet (Calcium 500 + D) furosemide 20 mg tablet 20 mg PO 4XWK 12/21/18 04/25/24 History gabapentin 100 mg capsule 300 mg PO BID 12/21/18 04/25/24 History magnesium oxide 400 mg PO QPM 12/21/18 04/25/24 History tamsulosin 0.4 mg capsule 0.4 mg PO AMPM 12/21/18 04/25/24 History sotalol 120 mg tablet 120 mg PO BID 04/14/19 04/25/24 History baclofen 10 mg tablet 10 mg PO HS 08/07/23 04/25/24 History duloxetine 60 mg capsule,delayed 120 mg PO QAM 08/07/23 04/25/24 History release ezetimibe 10 mg tablet 10 mg PO QAM 08/07/23 04/25/24 History tramadol 50 mg tablet 50 mg PO Q6 PRN pain,severe 08/07/23 04/25/24 History aspirin 81 mg tablet,delayed 81 mg PO QAM #30 tabs 08/12/23 04/25/24 Rx release hydrocortisone 2.5 % topical cream 1 applic TX BID PRN Hemorrhoids 04/25/24 04/25/24 History with perineal applicator (Anusol-HC) oxycodone 5 mg tablet 5 mg PO Q8H PRN Pain 04/25/24 04/25/24 History Patient History Medical History (Updated 04/26/24 @ 10:14 by ROSIE Aguila) Recurrent falls Family History Mother , 44 Cirrhosis, Onset Age: 44 Father , 66 Lung cancer Coronary heart disease Myocardial infarction Other Hypertension Social History (Updated 08/11/23 @ 15:00 by John Tamayo DO) Smoking Status: Former smoker Tobacco Type: Cigarettes Cigarettes Per Day: 1/2 ppd; Second Hand Exposure: No; Do You Dip or Chew Tobacco: No; Tobacco Cessation Education Requested by Patient: No Hx Alcohol Use: Yes Alcohol type: beer Alcohol Intake Frequency Comment: 1 glass of wine daily Hx Substance Use: No Preferred Language: Honduran Communication Ability: Effective Cbx Operator Required: No Beliefs That Will Affect Care: None marital status: Single Current Living Situation: Alone Current Living Situation Comment: Lives alone, has significant other that lives next door current occupational status: retired 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 [employer] Other Information That Helps Us Care for You: No Feels Safe at Home: Yes Safety Concerns: Feels Safe At This Time Assistive Devices: Denture - Upper and Glasses Review of Systems Review of Systems: All systems reviewed & are unremarkable except as noted in HPI & below Physical Exam Constitutional: well developed and well nourished; no acute distress and not ill appearing Neck: normal visual inspection and trachea midline Respiratory: normal respiratory effort, lungs clear to auscultation no cough Cardiovascular: Rate/Rhythm: regular rate and regular rhythm (Paced) Heart Sounds: normal S1 and normal S2; no murmur Vessels: dorsalis pedis pulses present; no JVD Skin: no rashes, warm and dry Psychiatric: A+Ox3, euthymic affect Results & Data Vital Signs (Past 12 Hours) Vital Signs Temp Pulse Pulse Resp BP BP Pulse Ox 04/26/24 07:00 60 04/26/24 04:35 36.8 C 58 L 18 156/76 H 96 04/25/24 22:26 60 19 169/79 H 04/25/24 22:26 04/25/24 22:21 70 04/25/24 22:00 60 17 156/76 H 95 Pulse Ox O2 Del Method O2 Del Method 04/26/24 07:00 04/26/24 04:35 Room Air 04/25/24 22:26 Room Air 04/25/24 22:26 94 Room Air 04/25/24 22:21 04/25/24 22:00 Room Air Laboratory Results Cardiac Enzymes 04/25/24 04/25/24 04/26/24 Range/Units 17:35 20:36 05:05 AST 21 (13-39) U/L Troponin I High Sens 5.2 5.1 6.0 (0-20) pg/ml Coagulation 04/25/24 Range/Units 17:35 PT 10.4 (9.0-12.0) Seconds CBC 04/25/24 04/26/24 Range/Units 17:35 05:05 WBC 4.77 L 3.87 L (4.8-10.8) K/ul RBC 4.31 L 4.08 L (4.70-6.10) M/uL Hgb 13.5 L 12.5 L (14.0-18.0) g/dl Hct 39.5 L 37.3 L (42.0-52.0) % Plt Count 201 189 (130-400) K/uL Neut # (Auto) 2.82 2.20 (1.40-6.50) K/uL Lymph # (Auto) 1.36 1.12 L (1.20-3.40) K/uL Falls # (Auto) 0.36 0.36 (0.11-0.59) K/uL Eos # (Auto) 0.17 0.15 (0.00-0.50) K/uL Baso # (Auto) 0.02 0.02 (0.00-0.20) K/uL Comprehensive Metabolic Panel 04/25/24 04/26/24 Range/Units 17:35 05:05 Sodium 139 140 (136-145) mmol/L Potassium 4.2 3.9 (3.5-5.1) mmol/L Chloride 104 106 (98-107) mmol/L Carbon Dioxide 30 29 (21-32) mmol/L BUN 18 16 (6-23) mg/dl Creatinine 0.93 0.81 (0.6-1.4) mg/dl Glucose 105 H 104 H (70-99(Fasting)) mg/dl Calcium 9.2 9.1 (8.6-10.3) mg/dl AST 21 (13-39) U/L ALT 21 (7-52) U/L Alkaline Phosphatase 69 (34-104) U/L Total Protein 6.9 (6.0-8.3) gm/dl Albumin 4.1 (3.4-5.0) gm/dl Intake and Output 04/25/24 04/26/24 04/26/24 22:59 06:59 14:59 Intake Total 60 / 60 Output Total 0 / 0 Balance 60 / 60 Intake: Oral 60 / 60 Output: # Bowel Movements 0 / 0 Other: Other Intake Source sips and chips # Unmeasured Voids 1 0 Weight 106 kg 106.1 kg Weight Measurement Method Standing Scale Diagnostic Findings Device interrogation 02/27/24 Normal Device Function Alerts or events: None Battery: 3.0V, 9.08 yrs Sensing, impedance and thresholds reviewed Programmed parameters reviewed Presenting rhythm APVS Heart Rate Histograms reviewed No significant changes noted Unscheduled Remote Created By: Suzanna Quach 12/27/2023 01:49 PM Alerts or Events: 1 NVST Battery: OK, 9.17 yrs 3.00V Sensing, impedance and thresholds reviewed Programmed parameters reviewed Presenting rhythm reviewed Heart Rate Histograms reviewed Echocardiogram 04/26/2024: LVEF 60-65% Mild concentric LVH aortic valve sclerosis mild, without significant stenosis Mild TR PASP 36 mmHg (2) Coronary artery disease Associated angina: without angina Coronary Disease-Associated Artery/Lesion type: bypass graft [place] vs. transplanted heart: [place] heart Qualified Code(s): I25.810 - Atherosclerosis of coronary artery bypass graft(s) without angina pectoris (6) Atrial fibrillation Atrial fibrillation type: paroxysmal Qualified Code(s): I48.0 - Paroxysmal atrial fibrillation
--- NOTE | 2024-04-26 12:38 | Discharge Summary ---
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 Around 4 PM when he was driving car he noticed left sided chest pain and left shoulder pain. He has arthritis in the left shoulder and has chronic pain but this pain seemed more intense this reason he came to the ER. Patient says the pain did not last too long. Later he took some aspirin. Currently patient states pain is completely resolved. No nausea. Was somewhat sweating. No dizziness. No shortness of breath. No cough. No fevers. No headache. Currently vision is okay. No runny nose or sore throat. No difficulty swallowing. Appetite is okay. No abdominal pain. Normal bowel and bladder movements. Currently resting comfortably and hemodynamically stable. Past medical history. As mentioned above past surgical history. CABG. Colonoscopy. Dental surgery. EGD. EGD with biopsy. Cataracts. Sacroiliac joint injection. Laparoscopic right hernia repair. Social history.. Quit smoking 1991. Smoked for 30 years. Alcohol 1 glass of wine a day. No drug use. Family history. Father had lung cancer. Fatal [place] at age of 66. Brother of Aids mid 40s. Mother had cirrhosis of liver and at age 44. Admission Exam Per Admitting Provider General- Not in distress Head- atraumatic Eyes- PERRL. ENT- oropharynx clear Neck- supple, no JVD. Lungs- clear to auscultation no wheezing or crackles. Heart- regular rate and rhythm; no murmur, no gallop. Abdomen- normal bowel sounds, soft, nontender, no distension. Extremities- no pretibial edema, no erythema seen.Painful left shoulder movements Neuro- alert, oriented x 3; PERRL, no facial palsy; no dysarthria; moves ext remities. Principal Diagnosis Chest pain rule out ACS Discharge Exam General- Not in distress Head- atraumatic Eyes- PERRL. ENT- oropharynx clear Neck- supple, no JVD. Lungs- clear to auscultation no wheezing or crackles. Heart- regular rate and rhythm; no murmur, no gallop. Abdomen- normal bowel sounds, soft, nontender, no distension. Extremities- no pretibial edema, no erythema seen.Painful left shoulder movements - improved to baseline per pt. Neuro- alert, oriented x 3; PERRL, no facial palsy; no dysarthria; moves extremities. Discharge Data Allergies Allergy/AdvReac Type Severity Reaction Status Date / Time house dust Allergy Intermediate SNEEZING, Verified 04/25/24 19:00 CONGESTION mold Allergy Intermediate SNEEZING, Verified 04/25/24 19:00 CONGESTION pollen extracts Allergy Intermediate SNEEZING, Verified 04/25/24 19:00 CONGESTION Consultations 04/25/24 19:21 ED Decision to Admit Stat 04/26/24 08:00 Consult Cardiology Routine Hospital Course (1) Chest pain: Per prior attending with addendum: 84-year-old male with past medical history significant for hyperlipidemia, paroxysmal atrial fibrillation, AV bia reentry tachycardia, history of CAD, s/p CABG, hypertension, s/p pacemaker, nonischemic cardiomyopathy, GERD, irritable bowel syndrome with both constipation and diarrhea, sigmoid diverticulosis, BPH, polymyalgia rheumatica, 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 Around 4 PM when he was driving car he noticed left sided chest pain and left shoulder pain. He has arthritis in the left shoulder and has chronic pain but this pain seemed more intense this reason he came to the ER. Patient says the pain did not last too long. Later he took some aspirin. Currently patient states pain is completely resolved. No nausea. Was somewhat sweating. No dizziness. No shortness of breath. No cough. No fevers. No headache. Currently vision is okay. No runny nose or sore throat. No difficulty swallowing. Appetite is okay. No abdominal pain. Normal bowel and bladder movements. Currently resting comfortably and hemodynamically stable. Chest pain history of CAD s/p CABG initial workup unremarkable currently pain resolved will follow serial cardiac enzymes and echo telemetry consult cardiology in a.m. 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 full code. Addendum 04/26/2024: Patient was seen and examined at bedside as a follow-up of chest pain rule out ACS. Troponin trends negative. Echo with no regional wall motion abnormality. Cardiology evaluated. Patient okay to discharge from their point of view. Patient is being discharged with following instruction at the point of discharge: Follow-up with your primary care physician within a week time and likely you will need labs CBC/CMP/magnesium/phosphorus. You were evaluated for chest pain while in hospital, cardiology also evaluated you. No indication of acute cardiac process so far from investigation. If with any new chest pain or worsening chest pain, reach out to your PCP or emergency immediately. Follow-up with cardiology as an outpatient. Take your medications as prescribed. Please make sure that you are able to get your medications today by calling your pharmacy before you leave the hospital so that your treatment continuity is not broken. Home Health Attestation I certify that this patient is under my care and that I, or a physicians clinical trials assistant working with me, had a face to-face encounter that meets the [id number] encounter requirements with this patient. The encounter with the patient was in whole, or in part, for the following medical condition, which is the primary reason for home health care (list medical condition): I certify that, based on my findings, the following services are medically necessary home health services: My clinical findings support the need for the above services because: Further, I certify that my clinical findings support that this patient is homebound (i.e. absences from home require considerable and taxing effort and are for medical reasons or protestant services or infrequently or of short duration when for other reasons) because: Certification for Home Health Services: Based on the above findings, I certify that this patient is confined to the home and needs intermittent senior living care, physical therapy and/or speech therapy or continues to need occupational therapy. The patient is under my care, and I have initiated the establishment of the plan of care. This patient will be followed by a physician who will periodically review the plan of care. Total Time Total Time Spent Total Time Spent (In Minutes): 45 Discharge Plan Discharge Items Patient Disposition: Home - Self-Care Reason For Visit: CHEST PAIN Discharge Diagnosis: Chest pain rule out ACS Activity: Resume your previous activity Non-emergency contact: Primary Care Provider Call non-emergency contact if: you have any medication questions and your symptoms worsen Follow-up/Referrals: Nikita Brady MD [Primary Care Provider] - Diet: Heart Healthy Addtl Attending Provider Instructions: Follow-up with your primary care physician within a week time and likely you will need labs CBC/CMP/magnesium/phosphorus. You were evaluated for chest pain while in hospital, cardiology also evaluated you. No indication of acute cardiac process so far from investigation. If with any new chest pain or worsening chest pain, reach out to your PCP or emergency immediately. Follow-up with cardiology as an outpatient. Take your medications as prescribed. Please make sure that you are able to get your medications today by calling your pharmacy before you leave the hospital so that your treatment continuity is not broken. Pending Studies at Discharge: No Stand-Alone Forms: [facility] Medications and DC Order Prescriptions: Continued sotalol 120 mg tablet 120 mg PO BID atorvastatin 40 mg tablet 40 mg PO HS tamsulosin 0.4 mg capsule 0.4 mg PO AMPM furosemide 20 mg tablet 20 mg PO [id number] Rx Instructions: TAKES ON MON,WEDS,FRI,SAT gabapentin 100 mg capsule 300 mg PO BID calcium carbonate-vitamin D3 [Calcium 500 + D] 500 mg(1,250mg) -200 unit Tablet 1 tab PO BID magnesium oxide 400 mg Capsule 400 mg PO QPM tramadol 50 mg tablet 50 mg PO Q6 PRN (Reason: pain,severe) baclofen 10 mg tablet 10 mg PO HS duloxetine 60 mg capsule,delayed release(DR/EC) 120 mg PO QAM ezetimibe 10 mg tablet 10 mg PO QAM aspirin 81 mg Tablet,Delayed Release (Dr/Ec) 81 mg PO QAM Qty: 30 0RF hydrocortisone [Anusol-HC] 2.5 % Cream With Perineal Applicator 1 applic MS BID PRN (Reason: Hemorrhoids) oxycodone 5 mg Tablet 5 mg PO Q8H PRN (Reason: Pain) Rx Instructions: PER JONATHAN, UNABLE TO VERIFY WITH EXT MED HX. Discharge Orders: Discharge Order (Routine); Ordered 04/26/24 Ordered By: Clementine Purdy Admission Data Admit Date/Time: 04/25/24 20:25 Attending Provider: Clementine Purdy Admit Provider: Jesus Rutherford Primary Care Provider: Nikita Brady Other Providers: Jesus Rutherford; Anson Santos
--- NOTE | 2024-04-26 14:12 | Electrocardiogram Report ---
Test Reason : Blood Pressure : / mmHG Vent. Rate : 086 BPM Atrial Rate : 086 BPM P-R Int : 266 ms QRS Dur : 158 ms QT Int : 418 ms P-R-T Axes : 078 -54 047 degrees QTc Int : 500 ms Atrial-paced rhythm with prolonged AV conduction Right bundle branch block Left anterior fascicular block Bifascicular block Abnormal ECG When compared with ECG of 25-NOV-2023 12:49, sinus complexes are no longer Present Confirmed by Vipin Queen ([id number]) on 04/26/2024 2:11:38 PM Referred By: [place] Confirmed By:Vipin Queen
--- NOTE | 2024-04-26 14:21 | Electrocardiogram Report ---
Test Reason : Blood Pressure : / mmHG Vent. Rate : 060 BPM Atrial Rate : 060 BPM P-R Int : 244 ms QRS Dur : 152 ms QT Int : 482 ms P-R-T Axes : 053 -46 017 degrees QTc Int : 482 ms Atrial-paced rhythm with prolonged AV conduction Right bundle branch block Left anterior fascicular block Bifascicular block Abnormal ECG When compared with ECG of 25-APR-2024 17:25, No significant change was found Confirmed by Vipin Queen ([id number]) on 04/26/2024 2:21:40 PM Referred By: REFERRED SELF Confirmed By:Vipin Queen
[2024-04-27] MEDS ORDERED: FUROSEMIDE 20 MG TAB PO SCH (09:00)
== END 2024-04-26 15:58 | disposition home or self-care (01) ==
LOC: ED 17:14 → 2N 17:14